=== PATIENT | male | born 1980 | race Caucasian/White ===

== ENCOUNTER 2021-02-19 17:01 | Emergency (ER) | payer MEDICAID, SELFPAY ==
--- NOTE | 2021-02-19 | ECG_ITS ---
Test Reason : CHEST PAIN Blood Pressure : / mmHG Vent. Rate : 106 BPM Atrial Rate : 106 BPM P-R Int : 208 ms QRS Dur : 086 ms QT Int : 320 ms P-R-T Axes : 039 018 024 degrees QTc Int : 425 ms Sinus tachycardia Septal infarct (cited on or before 16-NOV-2019) Mild ND prolongation Abnormal ECG When compared with ECG of 16-NOV-2019 12:29, Vent. rate has increased BY 42 BPM Referred By: Generic ED Physician Electronically Signed By:TRISH ZAMORA
--- NOTE | ~2021-02-19 | XR_ITS ---
EXAMINATION: XR CHEST CLINICAL INFORMATION: Chest pain. COMPARISON: Chest radiographs dated 11/16/2019. TECHNIQUE: Frontal view of the chest was obtained. FINDINGS: Bilateral patchy opacities are seen predominantly in the mid and lower lung way. The heart and mediastinal structures are unremarkable. XR/XR chest 1V IMPRESSION: Bilateral patchy opacities predominantly in the lower lung way bilaterally were not seen previously and suggest an infectious/inflammatory process.
--- NOTE | ~2021-02-19 | CT_ITS ---
EXAMINATION: CT ANGIOGRAM OF THE CHEST WITH AND WITHOUT CONTRAST (CT PULMONARY ANGIOGRAM FOR PE) CLINICAL INFORMATION: Reason for Exam Post COVID chest Pain elevated D-dimer COMPARISON: Chest radiograph 02/19/[address] abdomen pelvis 02/24/2014 TECHNIQUE: Prior to contrast administration, noncontrast localization images were obtained. Subsequently, multidetector volumetric imaging was performed from the thoracic inlet to below the diaphragms following the administration of 71 mL Omnipaque 350 intravenous contrast. No contrast reaction reported Sagittal, coronal, and MIP oblique sagittal reformatted images were obtained on the CT workstation, uploaded to PACS, and reviewed. This CT examination was performed using dose optimization techniques as appropriate, variously including the following: *Automated exposure control *Adjustment of mA and/or kV according to patient size (this includes techniques or standardized protocols for targeted exams where dose is matched to indication/reason for exam; i.e. extremities or head) *Use of iterative reconstruction technique Total exam dose-length product 568 mGy-cm FINDINGS: QUALITY OF STUDY/CONTRAST BOLUS: Satisfactory. PULMONARY ARTERIES: No central or segmental pulmonary emboli. THORACIC AORTA: No aneurysm or dissection. Marked motion artifact is present. LUNG: Diffuse multifocal groundglass infiltrates are present with some areas of more linear scarring consistent with evolving Covid 19 pneumonia. PLEURA: No pleural effusion or pneumothorax. MEDIASTINUM: Normal heart size. No pericardial effusion. No hilar or mediastinal lymphadenopathy. No evidence of septal bowing or right heart strain. CHEST WALL/AXILLA: No axillary or internal mammary lymphadenopathy. OSSEOUS STRUCTURES: No acute or suspicious osseous abnormality. UPPER ABDOMEN: A small hiatal hernia is present. No reflux of contrast into the hepatic veins to suggest elevated right heart pressures. CT/CT angio chest PE protocol IMPRESSION: 1. No evidence of pulmonary emboli. 2. Multifocal patchy groundglass changes with some more linear areas consistent with evolving Covid 19 infection VTE: negative
[2021-02-19 17:41] VITALS: BP 131/94; PULSE 108; RESP 19; TEMP 37.2; O2SAT 94; BMI 33.5
[2021-02-19 19:47] LABS: MANUAL DIFF FLAG NO
[2021-02-19 19:49] LABS: Basophils Percent Auto 0.2 % (0-2); Eosinophils Absolute Auto 0.2 X10*3/uL (0.0-0.4); Eosinophils Percent Auto 2.3 % (0-4); Hematocrit 41.1 % (42-52); Hemoglobin 13.2 g/dl (14.0-18.0); Imm Gran Abs Auto 0.07 X10*3/uL (0.00-0.03); Imm Gran Pct Auto 0.7 % (0.0-0.4); Lymphocytes Absolute Auto 2.1 X10*3/uL (1.2-4.9); Mean Corpuscular HGB Conc 32.1 g/dl (31.0-36.0); Mean Corpuscular Hemoglobin 28.9 pg (27.0-33.0); Mean Corpuscular Volume 89.9 fL (80-98); Mean Platelet Volume 9.4 fL (9.4-12.4); Monocytes Absolute Auto 0.7 X10*3/uL (0.1-1.2); Monocytes Percent Auto 7.2 % (2-11); Neutrophils Percent Auto 68.6 % (45-73); Platelet Count 139 X10*3/uL (160-400); Red Blood Count 4.57 X10*6/uL (4.60-5.80); Red Cell Distribution Width 12.6 % (11.0-16.0); White Blood Count 10.2 X10*3/uL (4.8-10.8)
[2021-02-19 20:04] VITALS: BP 124/77; PULSE 91; RESP 17; O2SAT 96
[2021-02-19 20:06] LABS: Anion Gap 11 (12-20); Blood Urea Nitrogen 7 mg/dL (9-16); Calcium 9.1 mg/dL (8.4-10.2); Carbon Dioxide 29 mmol/L (22-29); Chloride 102 mmol/L (96-108); Estimated Glomerular Filt Rate > 60; Glucose Random 91 mg/dL (60-115); Potassium 4.4 mmol/L (3.3-5.1); Sodium 138 mmol/L (135-145)
[2021-02-19 20:11] LABS: Troponin-I High Sensitivity < 3.5 ng/L (<3.5-35.0)
[2021-02-19 20:31] VITALS: PULSE 102
--- NOTE | 2021-02-19 20:32 | PC.NURSE ---
pt resting queitly, eating fritos, candy, rice crispies, and juice, unlabored resp. nsr on monitor. atenolol was held aprox 02/04 and pulse has been high ever since. pains are vague and varied. chest, head, BLE pains and chapped lips. ls clear all way
--- NOTE | 2021-02-19 20:50 | ED_ITS ---
HPI - Chest Pain General Chief Complaint: Chest Pain Stated Complaint: cp Time Seen by Provider: 02/19/21 20:50 Source: patient Mode of arrival: ambulatory Limitations: no limitations History of Present Illness HPI narrative: Patient with history of recent COVID infection in January with history of anxiety and hypertension complaining of palpitation off and on with chest pain since discharge on 02/09 patient was on atenolol 25 mg but was discontinued because of bradycardia patient's feel very anxious chest pain is way mild discomfort also complaining of headache and poor sleep headache been there for 3 days is worried about a blood clot in the brain because of COVID no nausea no vomiting no significant shortness of breath no cough pain chest increases on deep inspiration complaint: chest pain Related Data Allergies Allergy/AdvReac Type Severity Reaction Status Date / Time No Known Allergies Allergy Verified 02/19/21 17:41 Review of Systems Review of Systems: Constitutional : No Weight loss, No Fever, No Chills ENT/Mouth : No sore throat, No Rhinorrhea Eyes: No Eye Pain, No Swelling Cardiovascular : +Chest Pain, no palpitations Respiratory : No Cough, No Sputum, no shortness of breath Gastrointestinal : no Nausea, No Vomiting, No Diarrhea, No abdominal Pain, no black stools Genitourinary : No Dysuria, No Urinary Frequency Musculoskeletal : No joint pain, No Myalgias, No Joint Swelling Skin : No Skin Lesions, No rash Neuro : No Weakness, No Numbness, No Dizziness, ++Headache Psych : No Anxiety/Panic, No Depression Heme/Lymph: No Bruising, No Lymphadenopathy Endocrine : No Polyuria, No Polydipsia All other systems reviewed and are negative PMFSH Past Medical History Medical History Anxiety Hypertension Social History Social History Alcohol intake: former Smoking Status: Former smoker Use of substances other than those prescribed or required for medical reasons: Yes Substance Use Type: Opiates Any prior treatment program specific to substance use: Yes Advance Directives: No Advance Directives Information Provided: Yes Physical Exam Vital Signs: Vital Signs: Last Vital Signs Temp 99.0 F 02/19/21 17:41 Pulse 94 02/19/21 22:56 Resp 18 02/19/21 22:56 BP 114/57 L 02/19/21 22:56 Pulse Ox 95 02/19/21 22:56 Body Mass Index 33.5 Appearance: Alert. Oriented X3. No acute distress. Anxious Eyes: PERRLA, No Nystagmus ENT: Pharynx normal. Oral Mucosa moist Neck: Normal inspection. Neck supple. CVS: Normal heart rate and rhythm. Pulses normal. Respiratory: No respiratory distress. Equal air entry bilateral, no wheezin g/rales/rhonchi Abdomen: Soft and nontender. Bowel sounds are present, no mass palpable, no CVA tenderness Skin: Skin warm and dry. Normal skin color. Normal skin turgor. Extremities: No lower extremity edema. No calf tenderness Neuro: Oriented X 3. No motor deficit. No sensory deficit.No cerebellar signs , cranial nerves II-XII intact MDM - Chest Pain MDM Narrative Medical decision making narrative: Patient has multiple symptoms tension headache shortness of breath chest pain CTA chest was done was negative for PE high sensitive troponin also negative no acute changes patient more anxious and worried about COVID side effects. Patient advised to continue his atenolol for the heart rate above 60 and follow with his PCP Medical Records Data Attestation: I reviewed the patient's medical records. Lab Data Attestation: I reviewed the patient's lab results. Result diagrams: 02/19/21 19:37 02/19/21 19:37 Labs: Lab Results 02/19/21 02/19/21 02/19/21 Range/Units 19:37 19:37 19:37 WBC 10.2 (4.8-10.8) X10*3/uL RBC 4.57 L (4.60-5.80) X10*6/uL Hgb 13.2 L (14.0-18.0) g/dl Hct 41.1 L (42-52) % MCV 89.9 (80-98) fL MCH 28.9 (27.0-33.0) pg MCHC 32.1 (31.0-36.0) g/dl RDW 12.6 (11.0-16.0) % Plt Count 139 L (160-400) X10*3/uL MPV 9.4 (9.4-12.4) fL Immature Gran % (Auto) 0.7 H (0.0-0.4) % Neut % (Auto) 68.6 (45-73) % Lymph % (Auto) 21.0 (20-40) % [place]quois % (Auto) 7.2 (2-11) % Eos % (Auto) 2.3 (0-4) % Baso % (Auto) 0.2 (0-2) % Lymph # (Auto) 2.1 (1.2-4.9) X10*3/uL [place] # (Auto) 0.7 (0.1-1.2) X10*3/uL Eos # (Auto) 0.2 (0.0-0.4) X10*3/uL Baso # (Auto) 0.0 (0.0-0.2) X10*3/uL Abs Immat Gran (auto) 0.07 H (0.00-0.03) X10*3/uL Absolute Neuts (auto) 7.0 (2.0-8.3) X10*3/uL Absolute Nucleated RBC 0.000 (0.0-0.012) X10*3/uL Nucleated RBC % (auto) 0.0 (0.0-0.2) /100WBC D-Dimer 392 NG/ML Hold Blue Top SEE NOTE Sodium 138 (135-145) mmol/L Potassium 4.4 (3.3-5.1) mmol/L Chloride 102 (96-108) mmol/L Carbon Dioxide 29 (22-29) mmol/L Anion Gap 11 L (12-20) BUN 7 L (9-16) mg/dL Creatinine 0.70 (0.5-1.4) mg/dL Estim Creat Clear Calc 176.0 Estimated GFR > 60 Random Glucose 91 (60-115) mg/dL Calcium 9.1 (8.4-10.2) mg/dL Troponin I High Sens (<3.5-35.0) ng/L 02/19/21 Range/Units 19:37 WBC (4.8-10.8) X10*3/uL RBC (4.60-5.80) X10*6/uL Hgb (14.0-18.0) g/dl Hct (42-52) % MCV (80-98) fL MCH (27.0-33.0) pg MCHC (31.0-36.0) g/dl RDW (11.0-16.0) % Plt Count (160-400) X10*3/uL MPV (9.4-12.4) fL Immature Gran % (Auto) (0.0-0.4) % Neut % (Auto) (45-73) % Lymph % (Auto) (20-40) % [place]quois % (Auto) (2-11) % Eos % (Auto) (0-4) % Baso % (Auto) (0-2) % Lymph # (Auto) (1.2-4.9) X10*3/uL [place] # (Auto) (0.1-1.2) X10*3/uL Eos # (Auto) (0.0-0.4) X10*3/uL Baso # (Auto) (0.0-0.2) X10*3/uL Abs Immat Gran (auto) (0.00-0.03) X10*3/uL Absolute Neuts (auto) (2.0-8.3) X10*3/uL Absolute Nucleated RBC (0.0-0.012) X10*3/uL Nucleated RBC % (auto) (0.0-0.2) /100WBC D-Dimer NG/ML Hold Blue Top Sodium (135-145) mmol/L Potassium (3.3-5.1) mmol/L Chloride (96-108) mmol/L Carbon Dioxide (22-29) mmol/L Anion Gap (12-20) BUN (9-16) mg/dL Creatinine (0.5-1.4) mg/dL Estim Creat Clear Calc Estimated GFR Random Glucose (60-115) mg/dL Calcium (8.4-10.2) mg/dL Troponin I High Sens < 3.5 (<3.5-35.0) ng/L Imaging Data CT scan - chest: Attestation: I personally reviewed and interpreted this imaging study as follows: Radiologist's impression: CT/CT angio chest PE protocol IMPRESSION: 1. No evidence of pulmonary emboli. 2. Multifocal patchy groundglass changes with some more linear areas consistent with evolving Covid 19 infection ECG Data ECG #1: Attestation: I personally reviewed and interpreted this ECG as follows: Interpretation: Sinus tachycardia heart rate 106 beats per minute poor progression of R-wave no acute ST T wave changes normal axis no acute ischemia Discharge Plan Discharge Clinical Impression: Atypical chest pain, COVID-19 Patient Disposition: Home, Self-Care Instructions: Chest Pain (ED), COVID-19 (Coronavirus Disease 2019) (ED) Additional Instructions: Drink plenty of fluid Continue your atenolol 25 mg daily Follow up with PCP Stand Alone Forms: Work/School Release
[2021-02-19 21:02] LABS: D Dimer 392 NG/ML
[2021-02-19] MEDS: Ketorolac Tromethamine 60 MG/2 ML VIAL IM (21:18)
[2021-02-19] MEDS: iohexoL 350 MG/ML 100 ML INFUS..BTL IV (22:04)
[2021-02-19 22:56] VITALS: BP 114/57; PULSE 94; RESP 18; O2SAT 95
--- NOTE | 2021-02-19 22:57 | PC.NURSE ---
reports improvement in headache. awaits md reeval resting comfortably. no SOB> skin pwd. nsr on monitor
== END 2021-02-19 23:58 | disposition home or self-care (01) ==
PROVIDERS: Emergency Provider Internal Medicine; PCP Internal Medicine
DX: U07.1 COVID-19 (principal); R07.89 Other chest pain; F11.10 Opioid abuse, uncomplicated; Z86.16 Personal history of COVID-19; Z87.891 Personal history of nicotine dependence
CPT/HCPCS: 36415; 71045; 71275; 80048; 84484; 85025; 85379; 93005; 96372; 99285; J1885; Q9967

== ENCOUNTER 2021-02-23 16:00 | Outpatient (REF) | payer MEDICAID, SELFPAY ==
--- NOTE | ~2021-02-23 | XR_ITS ---
EXAMINATION: XR CHEST CLINICAL INFORMATION: Pneumonia. Covid 19. COMPARISON: Several priors. Most recent of 02/19/21. CT scan of 02/19/21. TECHNIQUE: 2 views of the chest were obtained. FINDINGS: Coarse interstitial changes are evident in the mid and lower lung zones similar to the chest x-ray of 02/19/[address] scan of 02/19/21. The CT scan also showed significant peripheral groundglass opacity typical of Covid pneumonia. No new abnormality is demonstrated. The pleural spaces are clear. The heart and mediastinal structures are normal. XR/XR chest 2V IMPRESSION: Radiographic changes consistent with Covid pneumonia. No significant interval change.
== END 2021-02-23 16:01 | disposition home or self-care (01) ==
LOC: HO.XRAY 16:00
PROVIDERS: PCP Internal Medicine; Visit Provider Internal Medicine
DX: J18.8 Other pneumonia, unspecified organism (principal); U07.1 COVID-19
CPT/HCPCS: 71046

== ENCOUNTER 2022-08-07 13:42 | Outpatient (REF) | payer MEDICAID, SELFPAY ==
[2022-08-07 15:32] LABS: Syphilis Screen Nonreactive (Nonreactive)
[2022-08-08 08:38] LABS: HIV AB/AG Nonreactive (Nonreactive); HIV Num 1 0.05 S/CO (0.00-0.99)
== END 2022-08-07 13:43 | disposition home or self-care (01) ==
LOC: HO.LAB 13:42
PROVIDERS: PCP Internal Medicine; Visit Provider Psychiatry & Neurology Neurology
DX: Z11.4 Encounter for screening for human immunodeficiency virus [HIV] (principal); G93.9 Disorder of brain, unspecified; G43.009 Migraine without aura, not intractable, without status migrainosus
CPT/HCPCS: 36415; 86780; 87389

== ENCOUNTER 2022-10-15 10:15 | Emergency (ER) | payer MEDICAID, SELFPAY ==
--- NOTE | ~2022-10-15 | XR_ITS ---
EXAMINATION: XR CHEST CLINICAL INFORMATION: Cough COMPARISON: Previous chest x-ray and chest CT February 2021 TECHNIQUE: 2 views of the chest were obtained. FINDINGS: The cardiac and mediastinal contours are normal. There are increased markings in the right upper lobe suggestive of right upper lobe pneumonia. The lungs are otherwise clear. There is no pleural effusion or pneumothorax. Bony structures are unremarkable. XR/XR chest 2V IMPRESSION: Right upper lobe pneumonia.
[2022-10-15 11:01] VITALS: BP 147/80; PULSE 62; RESP 18; TEMP 37.1; O2SAT 97; BMI 32.8
[2022-10-15 11:21] LABS: Strep A Nucleic Acid Positive (Negative)
--- NOTE | 2022-10-15 11:25 | ED_ITS ---
HPI - URI/Sore Throat General Chief Complaint: Upper Respiratory Symptoms Stated Complaint: Strep throat/Difficulty breathing Time Seen by Provider: 10/15/22 11:23 Source: patient Mode of arrival: ambulatory Limitations: no limitations History of Present Illness HPI Narrative: 42-year-old male presents to the ER for evaluation ongoing dry cough, sore throat and headaches for the last 11 days. He was seen at [facility] [place] [facility], where he tested positive for strep throat. He was prescribed penicillin and has been compliant. He states the antibiotics took his pain away for 1 day but otherwise has been persistent sore throat. He has an ongoing dry cough and would like a chest x-ray today. He denies any fevers, difficulty breathing, chest pain. He states he has diffuse body aches and feels unwell. He has been eating and drinking normally but hurts to swallow. MD elicited complaint: cough and sore throat Onset (ago): day(s) (10) Consistency: constant Severity: moderate Able to tolerate fluids by mouth: Yes Exacerbating factors: swallowing Relieving factors: lozenge Associated symptoms: myalgias, headache, nasal congestion, sore throat and cough Treatments prior to arrival: none Related Data Previous Rx's Medication Instructions Recorded amoxicillin 875 mg-potassium 1 tab PO Q12H #14 tabs 10/15/22 clavulanate 125 mg tablet benzonatate 200 mg capsule 200 mg PO TID PRN cough #30 caps 10/15/22 prednisone 20 mg tablet 40 mg PO DAILY #10 tabs 10/15/22 Allergies Allergy/AdvReac Type Severity Reaction Status Date / Time No Known Allergies Allergy Verified 02/19/21 17:41 Review of Systems Review of Systems: Constitutional: No Fever, No Chills ENT/Mouth: +sore throat, No Rhinorrhea, No Swallowing Difficulty Cardiovascular: No Chest Pain, No SOB Respiratory: + Cough, No Sputum, No Wheezing, No dyspnea Gastrointestinal: No Nausea, No Vomiting, No Diarrhea, No abdominal Pain Musculoskeletal: No joint pain, +Myalgias Skin: No Skin Lesions, No rash Neuro: + Weakness, No Numbness, No Dizziness, +Headache Psych: + Anxiety/Panic Heme/Lymph: No Bruising, No Lymphadenopathy PMFSH Past Medical History Medical History Anxiety Hypertension Social History Social History Alcohol intake: former Substance Use Type: Opiates Advance Directives: No Advance Directives Information Provided: No Physical Exam Vital Signs: Vital Signs: Last Vital Signs Temp 98.8 F 10/15/22 11:01 Pulse 62 10/15/22 11:01 Resp 18 10/15/22 11:01 BP 147/80 H 10/15/22 11:01 Pulse Ox 97 10/15/22 11:01 O2 Del Method 10/15/22 11:01 BMI result Body Mass Index 32.8 Appearance: Alert. Oriented X3. No acute distress. Eyes: Pupils equal, round and reactive to light. ENT: Pharynx with moist mucous membranes. Posterior pharyngeal erythema with tonsillar swelling without exudate. Uvula midline. Normal voice, handling secretions normally. Neck: Normal inspection. Neck supple. CVS: Normal heart rate and rhythm. Pulses normal. Respiratory: No respiratory distress. Breath sounds normal. Barking type cough. Skin: Skin warm and dry. Normal skin color. Normal skin turgor. No rashes. Extremities: No lower extremity edema. Neuro: Oriented X 3. Grossly normal, nonfocal Course Course Course Narrative: 42-year-old male with recently diagnosed strep throat presents to the ER for ongoing sore throat and dry cough after being on antibiotics for the last 3 day s. He thinks the antibiotics are not working. On exam he has no evidence of peritonsillar abscess. He is saturating well on room air and has clear lungs throughout. Chest x-ray reviewed, no focal infiltrate appreciated. He is negative for COVID, flu, RSV. Will change his antibiotic to Augmentin, start prednisone for possible bronchitis as well as antitussive. Patient given other symptomatic management for strep throat, sore throat including salt water gargles and [id number] remedies. Encourage follow-up with his primary care doctor. Stable for discharge home. Medical Decision Making Lab Data Labs: Lab Results 10/15/22 10/15/22 Range/Units 11:12 11:12 Influenza Type A (PCR) NEGATIVE (Negative) Influenza Type B (PCR) NEGATIVE (Negative) RSV RNA Qual (PCR) NEGATIVE (Negative) SARS-CoV-2 RNA (RT-PCR) NEGATIVE (Negative) S. pyogenes GrpA MARGO Positive A (Negative) Discharge Plan Discharge Clinical Impression: Strep throat Patient Disposition: Home, Self-Care Instructions: Strep Throat (ED) Additional Instructions: Chest x-ray is clear, no evidence of pneumonia. You are negative for Flu, COVID and RSV Stop taking the previously prescribed pencillin and start the new prescription as directed, complete the entire course and do not miss any doses Take the prescribed prednisone as directed and the cough medication as needed. Rest and drink plenty of fluids Use warm salt water gargles several times per day Recommend over the counter Cepacol and Chloraseptic spray as needed for sore throat Take motrin and tylenol as needed for pain If you develop new or worsening symptoms call 911 or come back to the ER for further evaluation. Prescriptions: New amoxicillin-pot clavulanate 875-125 mg tablet 1 tab PO Q12H Qty: 14 0RF prednisone 20 mg tablet 40 mg PO DAILY Qty: 10 0RF benzonatate 200 mg capsule 200 mg PO TID PRN (Reason: cough) Qty: 30 0RF Referrals: Diann Ramirez MD [Primary Care Provider] - Stand Alone Forms: Work/School Release Interventions: ED Discharge Assessment Last Done: 10/15/22 12:13 Discharge Date/Time: 10/15/22 12:14
--- OUTSIDE RECORDS SUMMARY | 2022-10-15 11:30 | XMS_ITS | Continuity of Care Document ---
:1980 Author Organization [facility] Address [address] [place] [address]- Care Team Providers Name Role Phone James LALA, Diann Primary Care Physician [id number] Date(s): 01/06/20 - 01/13/20 [facility] [address] [place] [address]- [facility] Attending Physician: Sierra Ambrocio MD Referring Physician: Diann Ramirez MD Allergies, Adverse Reactions, Alerts Substance Reaction Severity Status NKA Active Medications Amoxicillin By Mouth, Maintenance, DENTAL INFECTION, 03/21/19 18:36:55 EDT Start Date: 03/21/19 Status: OrderedAtivan 1 mg oral tablet 1 tablet = 1 mg, By Mouth, 3 times a day, PRN for anxiety, # 12 tablet, 0 Refills, Maintenance, Tablet Start Date: 10/09/11 Status: OrderedAtivan 1 mg oral tablet 1 tablet = 1 mg, By Mouth, 3 times a day, PRN Pain , Moderate, # 3 tablet, 0 Refills, Maintenance Start Date: 07/15/12 Stop Date: 07/16/12 Status: OrderedGolytely - oral powder for reconstitution 2 L, By Mouth, 2 times a day, # 4 L, 0 Refills, Maintenance, 06/02/19 16:41:22 EDT Start Date: 06/02/19 Status: Orderedlidocaine 4% mucous membrane solution See Instructions, apply small amount to ulcer three times daily, # 1 each, 0 Refills, Maintenance, 01/06/20 18:10:00 EDT, [id number], apply small amount to ulcer three times daily, 180, cm, 01/06/20 17:50:00 EDT, Height, 108.5, kg, 03... Start Date: 01/06/20 Status: OrderedSuboxone 8 mg-2 mg sublingual film 2.5, Sublingual, Daily, 0 Refills, Maintenance Start Date: 06/17/12 Status: Ordered Vital Signs Most recent to oldest [Reference Range]: 1 Height 180.00 cm (01/06/20 5:50 PM) Weight 108.5 kg (01/06/20 5:50 PM) Oxygen Saturation [94-100 %] 100 % (01/06/20 5:50 PM) Pulse Rate [55-90 bpm] 59 bpm (01/06/20 5:50 PM) Body Mass Index [18.5-24.99] 33.49 *>HHI* (01/06/20 5:50 PM) Blood Pressure [90-138/55-84 mm Hg] 115/75 mm Hg (01/06/20 5:50 PM) Respiratory Rate [16-30 br/min] 17 br/min (01/06/20 5:50 PM) Temperature [96.8-100.4 DegF] 98.3 DegF (01/06/20 5:50 PM) Mode of Delivery (Oxygen) Room air (01/06/20 5:50 PM) Blood pressure sites Arm, right (01/06/20 5:50 PM) Temperature Route Oral (01/06/20 5:50 PM) Dry Weight 108.5 kg (01/06/20 5:50 PM) Weight Obtained Via Standing scale (01/06/20 5:50 PM) Dry Weight Obtained Via Standing scale (01/06/20 5:50 PM) Social History Social History Type Response Smoking Status Former smoker entered on: 03/14/15 Sex
--- OUTSIDE RECORDS SUMMARY | 2022-10-15 11:30 | XMS_ITS | Continuity of Care Document ---
:1980 Author Organization [facility] Address [address] [place] [address]- Care Team Providers Name Role Phone Diann Ramirez MD Primary Care Physician Encounter [facility] Date(s): 03/06/21 - 03/06/[address] [address]- Discharge Disposition: A-D/C Home Attending Physician: Neto Capone MD Admitting Physician: Neto Capone MD Referring Physician: Not on Staff, Referring MD Allergies, Adverse Reactions, Alerts Substance Reaction Severity Status NKA Active Medications Amoxicillin By Mouth, Maintenance, DENTAL INFECTION, 03/21/19 18:36:55 EDT Start Date: 03/21/19 Status: OrderedAtivan 1 mg oral tablet 1 tablet = 1 mg, By Mouth, 3 times a day, PRN Pain , Moderate, # 3 tablet, 0 Refills, Maintenance Start Date: 07/15/12 Stop Date: 07/16/12 Status: OrderedAtivan 1 mg oral tablet 1 tablet = 1 mg, By Mouth, 3 times a day, PRN for anxiety, # 12 tablet, 0 Refills, Maintenance, Tablet Start Date: 10/09/11 Status: OrderedGolytely - oral powder for reconstitution 2 L, By Mouth, 2 times a day, # 4 L, 0 Refills, Maintenance, 06/02/19 16:41:22 EDT Start Date: 06/02/19 Status: Orderedlidocaine 4% mucous membrane solution See Instructions, apply small amount to ulcer three times daily, # 1 each, 0 Refills, Maintenance, 01/06/20 18:10:00 EDT, [facility] #[id number], apply small amount to ulcer three times daily, 180, cm, 01/06/20 17:50:00 EDT, Height, 108.5, kg, 03... Start Date: 01/06/20 Status: OrderedSuboxone 8 mg-2 mg sublingual film 2.5, Sublingual, Daily, 0 Refills, Maintenance Start Date: 06/17/12 Status: Ordered Results Radiology Reports Exam Date Time Procedure Performing Provider Status 03/06/21 11:09 AM Cervical Spine 3 Views or Less Deja Orlando; Shon (Verified) Notes:(Cervical Spine 3 Views or Less) Reason For Exam: PainRESULT: Cervical Spine 3 Views or Less Examination: Cervical spine series performed on 03/06/2021. History: Hx of Present Illness: Pt presents with complaint of left neck pain which began after a fall two weeks ago. Pt states the pain has worsened and now radiates into his left shoulder. He also reports increased swelling. No tingling or numbness. CSM intact.; Reason: Pain; Clinical Question(s): Other: Findings: Frontal, lateral, and odontoid views of the cervical spine are submitted. Evaluate extends from the occiput through the C7 vertebral level. The C7-T1 articulation is not well-visualized. No fractures or dislocations are demonstrated. There is straightening of the cervical lordosis, which could be secondary to muscle spasm. The atlantoaxial articulation is preserved. The prevertebral soft tissues are within normal limits. IMPRESSION: There is no acute osseous abnormality. WSN: [id number] Ordering Physician: Neto Capone Dictated By: Ruby Kasper MD Dictated Date/Time: 03/06/21 11:33 a Reviewed By: Ruby Kasper MD Signed By: Ruby Kasper MD Signed Date/Time: 03/06/21 11:33 am Transcribed By: MIMI Transcribed Date/Time: 03/06/21 11:32 am Vital Signs Most recent to oldest [Reference Range]: 1 2 Height 180 cm 180 cm (03/06/21 1:16 PM) (03/06/21 10:48 AM) Weight 110 kg 110 kg (03/06/21 1:16 PM) (03/06/21 10:48 AM) Oxygen Saturation [94-100 %] 98 % 99 % (03/06/21 1:16 PM) (03/06/21 10:48 AM) Pulse Rate [55-90 bpm] 53 bpm 52 bpm *L* *L* (03/06/21 1:16 PM) (03/06/21 10:48 AM) Body Mass Index [18.5-24.99] 33.95 *>HHI* (03/06/21 1:16 PM) Blood Pressure [90-138/55-84 mm Hg] 108/80 mm Hg 124/ 57 mm Hg (03/06/21 1:16 PM) (03/06/21 10:48 AM) Respiratory Rate [16-30 br/min] 18 br/min 20 br/mi n (03/06/21 1:16 PM) (03/06/21 10:48 AM) Temperature [96.8-100.4 DegF] 97.5 DegF 97.9 DegF (03/06/21 1:16 PM) (03/06/21 10:48 AM) Mode of Delivery (Oxygen) Room air Room air (03/06/21 1:16 PM) (03/06/21 10:48 AM) Blood pressure sites Arm, left Arm, left (03/06/21 1:16 PM) (03/06/21 10:48 AM) Temperature Route Oral Oral (03/06/21 1:16 PM) (03/06/21 10:48 AM) Dry Weight 110 kg 110 kg (03/06/21 1:16 PM) (03/06/21 10:48 AM) Weight Obtained Via Standing scale (03/06/21 10:48 AM) Social History Social History Type Response Smoking Status Former smoker entered on: 03/14/15 Sex
--- OUTSIDE RECORDS SUMMARY | 2022-10-15 11:30 | XMS_ITS | Continuity of Care Document ---
:1980 Author Organization [facility] Address [address] [place] [id number]- Care Team Providers Name Role Phone Diann Ramirez MD Primary Care Physician Encounter [facility] Date(s): 04/03/20 - 04/03/[address] [address]- [facility] Discharge Disposition: A-D/C Walkout Attending Physician: Not on Staff, Attending MD Admitting Physician: Not on Staff, Admitting MD Referring Physician: Not on Staff, Referring [...] each, 0 Refills, Maintenance, 01/06/20 18:10:00 EDT, [facility] #[id number], apply small amount to ulcer three times daily, 180, cm, 01/06/20 17:50:00 EDT, Height, 108.5, kg, 03... Start Date: 01/06/20 Status: OrderedSuboxone 8 mg-2 mg sublingual film 2.5, Sublingual, Daily, 0 Refills, Maintenance Start Date: 06/17/12 Status: Ordered Vital Signs Most recent to oldest [Reference Range]: 1 2 Oxygen Saturation [94-100 %] 100 % 98 % (04/03/20 10:15 PM) (04/03/20 5:51 PM) Pulse Rate [55-90 bpm] 61 bpm 74 bpm (04/03/20 10:15 PM) (04/03/20 5:51 PM) Blood Pressure [90-138/55-84 mm Hg] 128/78 mm Hg 148/ 88 mm Hg (04/03/20 10:15 PM) *H* (04/03/20 5:51 PM) Respiratory Rate [16-30 br/min] 18 br/min 20 br/mi n (04/03/20 10:15 PM) (04/03/20 5:51 PM) Temperature [96.8-100.4 DegF] 98.1 DegF 97.9 DegF (04/03/20 10:15 PM) (04/03/20 5:51 PM) Mode of Delivery (Oxygen) Room air Room air (04/03/20 10:15 PM) (04/03/20 5:51 PM) Blood pressure sites Arm, right Arm, left (04/03/20 10:15 PM) (04/03/20 5:51 PM) Temperature Route Oral Oral (04/03/20 10:15 PM) (04/03/20 5:51 PM) Social History Social History Type Response Smoking Status Former smoker entered on: 03/14/15 Sex
--- OUTSIDE RECORDS SUMMARY | 2022-10-15 11:30 | XMS_ITS | Continuity of Care Document ---
:1980 Author Organization [facility] Address [address] [place] [address]- Care Team Providers Name Role Phone Diann Ramirez MD Primary Care Physician Encounter [id number] Date(s): 07/27/22 - 07/27/[address] [address]- Discharge Disposition: A-D/C Walkout Attending Physician: Not on Staff, Attending MD Admitting Physician: Not on Staff, Admitting MD Referring Physician: Not on Staff, Referring MD Allergies, Adverse Reactions, Alerts No Known Allergies Medications Amoxicillin By Mouth, Maintenance, DENTAL INFECTION, [...] each, 0 Refills, Maintenance, 01/06/20 18:10:00 EDT, [facility][id number], apply small amount to ulcer three times daily, 180, cm, 01/06/20 17:50:00 EDT, Height, 108.5, kg, 03... Start Date: 3/19/20 Status: OrderedSuboxone 8 mg-2 mg sublingual film 2.5, Sublingual, Daily, 0 Refills, Maintenance Start Date: 06/17/12 Status: Ordered Problem List Condition Confirmation Course Effective Dates Status Health Stat us Informant Obese class I Confirmed Active Results Radiology Reports Exam Date Time Procedure Performing Provider Status 07/27/22 1:43 PM Chest 2 Views Frontal and Lat Gary Cortez; Shon (Verified) Notes:(Chest 2 Views Frontal and Lat) Reason For Exam: Chest Pain;Other:RESULT: Chest 2 Views Frontal and Lat PA and lateral chest dated July 27, 2022. Comparison films are from April 18, 2015. HISTORY: Chest pain. FINDINGS: The cardiac silhouette is within normal limits for size. Hilar and mediastinal structures are unremarkable. No airspace infiltrate or pleural effusion is identified. Visualized osseous structures are unremarkable. IMPRESSION: No evidence of acute pulmonary disease. Interval resolution of a right upper lobe infiltrate. Examination 39097. Thank you for allowing me to participate in the care of this patient. WSN: [id number] Ordering Physician: Jem Wright Dictated By: Erick Hankins MD Dictated Date/Time: 07/27/22 1:52 pm Reviewed By: Erick Hankins MD Signed By: Erick Hankins MD Signed Date/Time: 07/27/22 1:52 pm Transcribed By: MIMI Transcribed Date/Time: 07/27/22 1:49 pm Vital Signs Most recent to oldest 1 2 3 [Reference Range]: Height 181 cm 181 cm (07/27/22 1:45 PM) (07/27/22 1:15 PM) Weight 110 kg 110 kg (07/27/22 1:45 PM) (07/27/22 1:15 PM) Oxygen Saturation [94-100 98 % 98 % 100 % %] (07/27/22 5:46 PM) (07/27/22 3:42 PM) (07/27/22 1:1 5 PM) Pulse Rate [55-90 bpm] 70 bpm 71 bpm 55 bpm (07/27/22 5:46 PM) (07/27/22 3:42 PM) (07/27/22 1:1 5 PM) Body Mass Index [18.5-24.99 33.58 kg/m2 kg/m2] *>HHI* (07/27/22 1:15 PM) Blood Pressure 111/67 mm Hg 112/65 mm Hg 124/67 mm Hg [90-138/55-84 mm Hg] (07/27/22 5:46 PM) (07/27/22 3:42 PM) ( 2 1:15 PM) Respiratory Rate [16-30 18 br/min 18 br/min br/min] (07/27/22 5:46 PM) (07/27/22 1:15 PM) Temperature [96.8-100.4 98.6 DegF 98.6 DegF 98 DegF DegF] (07/27/22 5:46 PM) (07/27/22 3:42 PM) (07/27/22 1:1 5 PM) Mode of Delivery (Oxygen) Room air Room air Room a ir (07/27/22 5:46 PM) (07/27/22 3:42 PM) (07/27/22 1:1 5 PM) Blood pressure sites Arm, right Arm, left Arm, right (07/27/22 5:46 PM) (07/27/22 3:42 PM) (07/27/22 1:1 5 PM) Temperature Route Oral Oral Oral (07/27/22 5:46 PM) (07/27/22 3:42 PM) (07/27/22 1:1 5 PM) Dry Weight 110 kg 110 kg (07/27/22 1:45 PM) (07/27/22 1:15 PM) Weight Obtained Via Patient/family stated (07/27/22 1:15 PM) Dry Weight Obtained Via Patient/family stated (07/27/22 1:15 PM) Social History Social History Type Response Smoking Status Former smoker entered on: 03/14/15 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 Comparison films are from April 18, 2015. HISTORY: Chest pain. FINDINGS: The cardiac silhouette is within normal limits for size. Hilar and mediastinal structures are unremarkable. No airspace infiltrate or pleural effusion is identified. Visualized osseous structures are unremarkable. IMPRESSION: No evidence of acute pulmonary disease. Interval resolution of a right upper lobe infiltrate. Examination [address]137. Thank you for allowing me to participate in the care of this patient. WSN: [id number] Ordering Physician: Jem Wright Dictated By: Erick Hankins MD Dictated Date/Time: 07/27/22 1:52 pm Reviewed By: Erick Hankins MD Signed By: Erick Hankins MD Signed Date/Time: 07/27/22 1:52 pm Transcribed By: MIMI Transcribed Date/Time: 07/27/22 1:49 pm Patient Care team information PersonnelName: Diann Ramirez MD Address: Address: [address] [place] [id number]
--- OUTSIDE RECORDS SUMMARY | 2022-10-15 11:30 | XMS_ITS | Continuity of Care Document ---
:1980 Author Organization [facility] Address [address] [place] [address]- Care Team Providers Name Role Phone Diann Ramirez MD Primary Care Physician Encounter [facility] Date(s): 07/30/22 - 07/30/[address] [address]- Encounter Diagnosis Anxiety (Final) - 07/30/22 Discharge Disposition: A-D/C Home Attending Physician: Fatou Mcguire DO Admitting Physician: Fatou Mcguire DO Referring Physician: Not on Staff, Referring MD Allergies, Adverse Reactions, Alerts No Known Allergies Medications Amoxicillin By Mouth, Maintenance, DENTAL INFECTION, 03/21/19 18:36:55 EDT Start Date: 03/21/19 Status: OrderedAtenolol By Mouth, Daily, 0 Refills, Maintenance, 07/30/22 11:17:00 EDT, Partial fill upon patient request ifthe prescription is for a schedule II opioid drug. Start Date: 07/30/22 Status: OrderedAtivan 1 mg oral tablet 1 [...] 06/02/19 16:41:22 EDT Start Date: 06/02/19 Status: Orderedibuprofen 600 mg oral tablet 600 mg, 1, tablet, By Mouth, Every 8 hours, # 30 tablet, Refills 0, Tot. Refills 0, Acute 08/10/22 15:34:00 EDT, 07/30/22 15:33:00 EDT, Route to Pharmacy Electronically, [facility] #[id number], Partial fill upon patient request if the prescriptio... Start Date: 07/30/22 Stop Date: 08/10/22 Status: Orderedlidocaine 4% mucous membrane solution See Instructions, apply small amount to ulcer three times daily, # 1 each, 0 Refills, Maintenance, 01/06/20 18:10:00 EDT, [facility] #[id number], apply small amount to ulcer three times daily, 180, cm, 01/06/20 17:50:00 EDT, Height, 108.5, kg, 03... Start Date: 01/06/20 Status: OrderedSuboxone 8 mg-2 mg sublingual film 2.5, Sublingual, Daily, 0 Refills, Maintenance Start Date: 06/17/12 Status: OrderedTylenol 325 mg oral tablet 325 mg, 1, tablet, By Mouth, Every 4 hours, PRN, # 60 tablet, Refills 0, Tot. Refills 0, Acute 08/10/22 15:36:00 EDT, for fever, 07/30/22 15:35:00 EDT, Route to Pharmacy Electronically, [facility] #[id number], Partial fill upon patient request if... Start Date: 07/30/22 Stop Date: 08/10/22 Status: Ordered Problem List Condition Confirmation Course Effective Dates Status Health Stat us Informant Obese class I Confirmed Active Results Radiology Reports Exam Date Time Procedure Performing Provider Status 07/30/22 11:53 AM Chest 2 Views Frontal and Lat Enmanuel Gracia ; Shon (Verified) Notes:(Chest 2 Views Frontal and Lat) Reason For Exam: Chest Pain;Other:RESULT: Chest 2 Views Frontal and Lat Examination: Chest performed on 07/30/2022. History: Anxiety. Chest pressure. Findings: Frontal and lateral views of the chest are compared to a prior study dated 07/27/2022. The cardiac and mediastinal silhouettes are within normal limits. The lungs are clear. The osseous and soft tissue structures are unremarkable. Impression: There is no acute cardiopulmonary disease. WSN: [id number] Ordering Physician: Franco Solano MD Dictated By: Ruby Kasper MD Dictated Date/Time: 07/30/22 12:00 p Reviewed By: Ruby Kasper MD Signed By: Ruby Kasper MD Signed Date/Time: 07/30/22 12:00 pm Transcribed By: MIMI Transcribed Date/Time: 07/30/22 12:00 pm Vital Signs Most recent to oldest 1 2 3 [Reference Range]: Height 180 cm 180 cm 180 cm (07/30/22:32 PM) (07/30/22 11:19 AM) (07/30/22 11:10 AM) Weight 110 kg 110 kg 110 kg (07/30/22:32 PM) (07/30/22: AM) (07/30/22 11:10 AM) Oxygen Saturation [94-100 96 % 98 % 97 % %] (07/30/22:32 PM) (07/30/22: AM) (07/30/22 11: AM) Pulse Rate [55-90 bpm] 62 bpm 1 69 bpm 80 bpm (07/30/22:32 PM) (07/30/22 11: AM) (07/30/22 11:08 AM) Body Mass Index [18.5-24.99 33.95 kg/m2 33.95 kg/m2 kg/m2] *>HHI* *>HHI* (07/30/22:32 PM) (07/30/22: AM) Blood Pressure 118/68 mm Hg 147/81 mm Hg [90-138/55-84 mm Hg] (07/30/22:32 PM) *H* (07/30/22: AM) Respiratory Rate [16-30 18 br/min 18 br/min br/min] (07/30/22:32 PM) (07/30/22: AM) Temperature [96.8-100.4 98.6 DegF 98.7 DegF DegF] (07/30/22:32 PM) (07/30/22: AM) Mode of Delivery (Oxygen) Room air Room air Room a ir (07/30/22:32 PM) (10/11/22 11:19 AM) (07/30/22 11:08 AM) Blood pressure sites Arm, left (07/30/22 11:19 AM) Temperature Route Oral Oral (07/30/22 2:32 PM) (07/30/22 11:19 AM) Dry Weight 110 kg 110 kg 110 kg (07/30/22 2:32 PM) (07/30/22 11:19 AM) (07/30/22 11:10 AM) 1Result Comment: Patient HR dropping to 39 intermittently. provider aware. 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 History: Anxiety. Chest pressure. Findings: Frontal and lateral views of the chest are compared to a prior study dated 07/27/2022. The cardiac and mediastinal silhouettes are within normal limits. The lungs are clear. The osseous and soft tissue structures are unremarkable. Impression: There is no acute cardiopulmonary disease. WSN: [id number] Ordering Physician: Franco Solano MD Dictated By: Ruby Kasper MD Dictated Date/Time: 07/30/22 12:00 p Reviewed By: Ruby Kasper MD Signed By: Ruby Kasper MD Signed Date/Time: 07/30/22 12:00 pm Transcribed By: MIMI Transcribed Date/Time: 07/30/22 12:00 pm Patient Care team information PersonnelName: Diann Ramirez MD Address: Address: [address] [place] [id number]
--- OUTSIDE RECORDS SUMMARY | 2022-10-15 11:30 | XMS_ITS | Continuity of Care Document ---
:1980 Author Organization [facility] Address [address] [place] [address]- Care Team Providers Name Role Phone Diann Ramirez MD Primary Care Physician [facility] [facility] [id number] Date(s): 01/06/20 - 01/16/20 [facility] [address] [place] [address]- [facility] Attending Physician: Dominique Chadwick Admitting Physician: Dominique Chadwick Referring Physician: AdmtrDominique Allergies, Adverse Reactions, Alerts Substance Reaction Severity [...] each, 0 Refills, Maintenance, 01/06/20 18:10:00 EDT, [facility] #[id number], apply small amount to ulcer three times daily, 180, cm, 01/06/20 17:50:00 EDT, Height, 108.5, kg, 03... Start Date: 01/06/20 Status: OrderedSuboxone 8 mg-2 mg sublingual film 2.5, Sublingual, Daily, 0 Refills, Maintenance Start Date: 06/17/12 Status: Ordered Social History Social History Type Response Smoking Status Former smoker entered on: 03/14/15 Sex
--- OUTSIDE RECORDS SUMMARY | 2022-10-15 11:31 | XMS_ITS | Continuity of Care Document ---
:1980 Author Organization [facility] Address [address], [address] Floor, [address] [place] [address]- Care Team Providers Name Role Phone James LALA, Diann Primary Care Physician Encounter [facility] Date(s): 09/07/22 - 10/07/22 [facility] [address] [place], [address], [address] [place] [address] Allergies, Adverse Reactions, Alerts No Known Allergies [...] each, 0 Refills, Maintenance, 01/06/20 18:10:00 EDT, [facility] #[id number], apply small amount to ulcer three times daily, 180, cm, 01/06/20 17:50:00 EDT, Height, 108.5, kg, 03... Start Date: 01/06/20 Status: OrderedSuboxone 8 mg-2 mg sublingual film 2.5, Sublingual, Daily, 0 Refills, Maintenance Start Date: 06/17/12 Status: Ordered Problem List Condition Confirmation Course Effective Dates Status Health Stat us Informant Obese class I Confirmed Active Social History Social History Type Response Smoking Status Former smoker entered on: 03/14/15 Sex Patient Care team information Care Team PersonnelName: James LALA , Diann Position: [facility] Outreach Member Role: PCP Address: Address: [address] [place] [address] [place] [address]- Care Team Related PersonsName: SHRAVAN CORBIN Address: home [address] [place] [address] [place] [address] Name: JEF CORBIN Address: home [address] [place] [address]
--- OUTSIDE RECORDS SUMMARY | 2022-10-15 11:31 | XMS_ITS | Referral Summary ---
:1980 Author Organization [facility] Physician Based Offices Care Team Providers Name Role Phone No, PCP Primary Care Physician Unavailable [id number] Date(s): 05/07/17 - 05/08/17 [facility] Physician Based Offices Attending Physician: DO Whitfield Scott T Referring Physician: Mayra, Tim
[2022-10-15 11:57] LABS: Influenza A PCR NEGATIVE (Negative); Influenza B PCR NEGATIVE (Negative); Resp Syncy Virus RNA Qual PCR NEGATIVE (Negative); SARS COV2 PCR INHOUSE NEGATIVE (Negative)
== END 2022-10-15 12:14 | disposition home or self-care (01) ==
PROVIDERS: Emergency Provider Student in an Organized Health Care Education/Training Program; PCP Internal Medicine
DX: J02.0 Streptococcal pharyngitis (principal); R06.02 Shortness of breath; R05.9 Cough, unspecified; R51.9 Headache, unspecified; M79.10 Myalgia, unspecified site; Z20.822 Contact with and (suspected) exposure to COVID-19
CPT/HCPCS: 0241U; 71046; 87651; 99282; 99283

== ENCOUNTER 2022-10-24 12:02 | Emergency (ER) | payer MEDICAID, SELFPAY ==
--- NOTE | ~2022-10-24 | XR_ITS ---
EXAMINATION: XR CHEST CLINICAL INFORMATION: Chest pain cough COMPARISON: Chest radiograph from 10/15/2022 TECHNIQUE: 2 views of the chest were obtained. FINDINGS: Previously identified parenchymal markings in the right upper lung field have improved with a residual amount noted. No pneumothorax. Trachea is midline. Cardiac mediastinal silhouette is not enlarged. No large pleural effusion. Osseous structures are intact. Soft tissues are unremarkable. XR/XR chest 2V IMPRESSION: Previously identified parenchymal markings in the right upper lung field have improved with a residual amount noted.
--- NOTE | ~2022-10-24 | XR_ITS ---
EXAMINATION: XR SOFT TISSUE NECK CLINICAL INDICATION: Neck swelling COMPARISON: None TECHNIQUE: 2 views of the soft tissue neck were obtained. FINDINGS: Soft tissue films of the neck demonstrate a normal larynx, pharynx and upper trachea. No soft tissue swelling or opaque foreign body is demonstrated. XR/XR soft tissue neck IMPRESSION: Unremarkable soft tissue neck exam.
--- NOTE | ~2022-10-24 | CT_ITS ---
EXAMINATION: CT SOFT TISSUE NECK WITHOUT CONTRAST CLINICAL INFORMATION: Anterior neck pain. COMPARISON: Neck radiograph from 10/24/2022. CT chest from 02/19/2021. TECHNIQUE: Multidetector helical imaging was performed in the axial plane without intravenous contrast. Multiple axial reformats and coronal/sagittal reconstructions were created the technologist workstation for review. This CT examination was performed using dose optimization techniques as appropriate, variously including the following: *Automated exposure control. *Adjustment of mA and/or kV according to patient size (this includes techniques or standardized protocols for targeted exams where dose is matched to indication/reason for exam; i.e. extremities or head). *Use of iterative reconstruction technique. DLP: 702 mGy-cm FINDINGS: No significant cutaneous thickening or subcutaneous inflammation. No discrete fluid collection within the deep tissues of the neck. The premaxillary, retromaxillary, pterygopalatine fossa, orbital apical, parapharyngeal, and prelaryngeal adipose tissue is maintained. Normal appearance of the parotid, submandibular, and thyroid glands. A right level IIa lymph node measures up to 1.6 cm. A left level III lymph node measures up to 1.5 cm. Otherwise, bilateral cervical chain lymph nodes are mildly increased in number but largely remain subcentimeter in size. No demonstrated focal lesion within the intrinsic tissues of the tongue or floor of mouth. Normal mucosal contours of the pharynx and larynx. Normal appearance of the hyoid bone, thyroid cartilage, or cartilaginous trachea. The airways remains widely patent. No radiopaque foreign bodies. The atlantooccipital and atlantoaxial articulations remain well aligned. Mild reversal the normal cervical lordosis. Otherwise, normal anatomic alignment. No evidence of acute fracture or subluxation of the cervical spine. The vertebral body heights are maintained. Moderate degenerative disc disease at C5-C6 and C6-C7. Mild degenerative disc disease at all additional cervical levels. There is no prevertebral soft tissue swelling. The visualized portion of the skull base is without significant abnormalities. The visualized paranasal sinuses are clear. The mastoid air cells and middle ear cavities are clear. The maxillary teeth are absent. CT Upper Chest: Redemonstrated multifocal patchy groundglass opacities throughout the visualized upper lungs. CT/CT soft tissue neck wo IV con IMPRESSION: 1. Nonspecific mildly prominent cervical chain lymph nodes. Right level IIa and left level III lymph nodes are mildly enlarged by CT size criteria; however, the etiology of this change remains nonspecific. 2. Otherwise, no demonstrated focal lesion or collection within the soft tissues of the neck. 3. Mild to moderate multilevel degenerative spinal arthropathy of the cervical spine. 4. Redemonstrated multifocal patchy groundglass opacities throughout the visualized upper lungs.
[2022-10-24 13:37] VITALS: BP 149/105; PULSE 68; RESP 18; TEMP 36.2; O2SAT 95; BMI 33.5
--- NOTE | 2022-10-24 13:37 | ED_ITS ---
HPI - General Adult General Source: patient <RON Chery - Last Filed: 10/24/22 19:10> Mode of arrival: ambulatory <RON Chery - Last Filed: 10/24/22 19:10> Limitations: no limitations <RON Chery - Last Filed: 10/24/22 19:10> History of Present Illness HPI narrative: 43-year-old male with a past medical history of anxiety and hypertension who is presenting to the ER with complaints of throat pain/anterior neck pain that has been present for the past few weeks worse today. Reports that he was seen here on 10/15/2022 and diagnosed with bacterial pharyngitis placed on antibiotics Augmentin for 7 days along with prednisone and cough medicine and he took that as prescribed and no symptomatic relief. He reports he feels like someone is choking him and his throat is closing. Although patient reports he is able to swallow liquids and food without any difficulty. Reports he was also seen at [facility] on [facility] where he also tested positive for strep as well. He reports this is making his chest feel tight. He does not feel like this is is regular anxiety attack. Reports that he also had some hives last night and this morning that he woke up to the are completely gone at this time. He denies any fevers, chills, ear pain, nasal congestion/rhinorrhea, sore throat, shortness of breath, dyspnea on exertion, orthopnea, palpitations, paresthesias, cough, sputum production, nausea/vomiting/diarrhea constipation, black or bloody stools, abdominal pain, rashes, recent falls or trauma, sick contacts or any other symptoms complaints or concerns at this time. <RON Chery - Last Filed: 10/24/22 19:10> complaint: Anterior throat pain <RON Chery Last Filed: 10/24/22 19:10> Onset (ago): week(s) <RON Chery Last Filed: 10/24/22 19:10> Related Data Home medications: Previous Rx's Medication Instructions Recorded amoxicillin 875 mg-potassium 1 tab PO Q12H #14 tabs 10/15/22 clavulanate 125 mg tablet benzonatate 200 mg capsule 200 mg PO TID PRN cough #30 caps 10/15/22 prednisone 20 mg tablet 40 mg PO DAILY #10 tabs 10/15/22 azithromycin 250 mg tablet See Rx Instructions PO .COMPLEX #6 10/24/22 tabs cefuroxime axetil 500 mg tablet 500 mg PO BID 7 days #14 tabs 10/24/22 prednisone 20 mg tablet 40 mg PO DAILY inflammation 5 days 10/24/22 #10 tabs <MENA Wolf - Last Filed: 10/30/22 20:48> Allergies/adverse reactions: Allergies Allergy/AdvReac Type Severity Reaction Status Date / Time No Known Allergies Allergy Verified 10/24/22 13:43 <MENA Wolf - Last Filed: 10/30/22 20:48> Review of Systems Review of Systems: Constitutional : No Weight loss, No Fever, No Chills, No Night Sweats, No Fatigue, No Malaise ENT/Mouth : No Hearing loss, No Ear Pain, No Nasal Congestion, No Sinus Pain, No Hoarseness, No sore throat, No Rhinorrhea, No Swallowing Difficulty Eyes: No Eye Pain, No Swelling, No Redness, No Foreign Body, No Discharge, No Vision Changes Cardiovascular : No Chest Pain, No SOB, No Dyspnea on Exertion, No Orthopnea, No Edema, No Palpitations Respiratory : No Cough, No Sputum, No Wheezing, No Smoke Exposure, No Dyspnea Gastrointestinal : No Nausea, No Vomiting, No Diarrhea, No Constipation, No abdominal Pain, No Hematochezia, No Melena Genitourinary : no irregular bleeding, No Dysuria, No Urinary Frequency, No Hematuria, No Urinary Incontinence, No Urgency, No Flank Pain, No Urinary Flow Changes, No Hesitancy Musculoskeletal : + anterior neck pain, No joint pain, No Myalgias, No Joint Swelling Skin : No Skin Lesions, No rash Neuro : No Weakness, No Numbness, No Paresthesias, No Loss of Consciousness, No Dizziness, No Headache Psych : No Anxiety/Panic, No Depression, No SI/HI/AH/VH, No Social Issues, Heme/Lymph: No Bruising, No Bleeding,No Lymphadenopathy Endocrine : No Polyuria, No Polydipsia, No Temperature Intolerance <RON Chery Last Filed: 10/24/22 19:10> Yes all other systems are reviewed and are negative <RON Chery - Last Filed: 10/24/22 19:10> [facility] Past Medical History Attestation statement: The following information was validated with the patient. <RON Chery - Last Filed: 10/24/22 19:10> Source: old records reviewed and nursing notes reviewed <RON Chery - Last Filed: 10/24/22 19:10> Medical History: Medical History Anxiety Hypertension <ALIYAH Wolf - Last Filed: 10/30/22 20:48> Social History Social History: Social History Alcohol intake: former Substance Use Type: Opiates Advance Directives: No Advance Directives Information Provided: No <ALIYAH Wolf - Last Filed: 10/30/22 20:48> Physical Exam ED Vital Signs: Vital Signs - 24 hr 10/24/22 13:37 Temperature 97.2 F Pulse Rate 68 Respiratory Rate 18 Blood Pressure 149/105 H Pulse Oximetry 95 Oxygen Delivery Method Room Air BMI result Body Mass Index 33.5 <ALIYAH Wolf - Last Filed: 10/30/22 20:48> Vital Signs - 24 hr 10/24/22 13:37 Temperature 97.2 F Pulse Rate 68 Respiratory Rate 18 Blood Pressure 149/105 H Pulse Oximetry 95 Oxygen Delivery Method Room Air BMI result Body Mass Index 33.5 vital signs have been reviewed as normal and appeared to be correct. Blood pressure 149/105. Heart rate normal. Respiration rate normal. Temperature normal. Oxygen saturation normal. <RON Chery - Last Filed: 10/24/22 19:10> Vital Signs - 24 hr 10/24/22 13:37 Temperature 97.2 F Pulse Rate 68 Respiratory Rate 18 Blood Pressure 149/105 H Pulse Oximetry 95 Oxygen Delivery Method Room Air BMI result Body Mass Index 33.5 <Margaret Moreira NP - Last Filed: 10/25/22 01:23> Appearance: Alert. Oriented X3. No acute distress. Head: Normal external exam. Normocephalic. Atraumatic. Eyes: PERRLA. EOMI. Conjunctiva and sclera normal. Eyelids normal. ENT: EAC normal. TM's Normal. Pharynx normal. Soft and hard palate within normal limits. Uvula midline. Moist mucous membranes. No lesions/ulcerations or masses noted on the tongue. Normal voice. No trismus noted. No drooling noted. No muffled voice noted. Neck: Normal inspection. Neck supple. FROM. No adenopathy. Thyroid Normal. No t lianna deviation noted. No crepitus is noted. No meningeal signs. No neck mass noted. No signs of trauma noted. CVS: Normal heart rate and rhythm. Heart sound normal. Pulses normal throughout. No murmurs/rales/gallops. Respiratory: No respiratory distress. Painless inspiration. Breath sounds no rmal. No wheezes/rales/rhonchi noted. Chest nontender. No crepitus is noted. No signs of trauma noted. No accessory muscle usage noted or decreased air movement noted. No signs of trauma. Abdomen: Soft and nontender. Bowel sounds normal in all 4 quadrants. No distention noted. No organomegaly noted. No visible injury noted. Back: Full range of motion noted. Nontender. Skin: Skin warm and dry. Normal skin color. Normal skin turgor. No rashes/lesions/lacerations noted. Extremities: Extremities exhibit normal range of motion and nontender. Neuro: Oriented X 3. No motor deficit. No sensory deficit. Reflexes normal. Normal steady gait. No focal neuro deficits noted. CN's II-XII intact bilaterally? Vascular: + radial pulses Normal cap refill. No cyanosis noted to upper extremity nails <RON Chery - Last Filed: 10/24/22 19:10> Course Course Course Narrative: 10/24/2022 [id number] RME: 43-year-old male with past medical history of hypertension and anxiety is here today for multiple complaints. Patient was seen here couple weeks ago for sore throat and was diagnosed with strep throat. Patient was put on antibiotics which she he reports that he finish. Today patient presents with multiple different complaints that include sore throat, patient feels like the throat is closing, however patient reports that he is able to swallow liquids and food. Patient denies any fever or chills. Patient denies any nausea or vomiting. De nies presyncope or syncope. Patient does report that his chest feels tight. He does not feel like this is an anxiety attack. Patient reports also that he had hives last night and this morning when he woke up which they are gone completely right now. Patient denies SOB with or without exertion. Denies syncope, presyncope, PND. Will order chest x-ray, labs that will include CBC, BMP, troponin and EKG <Carrol Gee, [employer] - Last Filed: 10/30/22 20:48> Reevaluation(s) Reevaluation #1: 43-year-old male with a past medical history of anxiety and hypertension who is presenting to the ER with complaints of throat pain/anterior neck pain that has been present for the past few weeks worse today. Reports that he was seen here on 10/15/2022 and diagnosed with bacterial pharyngitis placed on antibiotics Augmentin for 7 days along with prednisone and cough medicine and he took that as prescribed and no symptomatic relief. He reports he feels like someone is choking him and his throat is closing. Although patient reports he is able to swallow liquids and food without any difficulty. Reports he was also seen at [facility] on [facility] where he also tested positive for strep as well. He reports this is making his chest feel tight. He does not feel like this is is regular anxiety attack. Reports that he also had some hives last night and this morning that he woke up to the are completely gone at this time. On exam patient is alert and oriented x3. Not in any acute distress. Vital signs are stable within normal limits. Normal voice. No trismus/dr ooling/stridor. Posterior pharynx within normal limits no erythema or exudate is noted. Uvula is midline. No peritonsillar/pharyngeal/dental abscess. Thyroid appears normal. No obvious neck swelling. He has full range of move the neck. No meningeal signs noted. Lungs clear to auscultation. CV RRR. This patient presents with anterior neck pain most consistent with muscular skeletal pain. Differential diagnosis includes bacterial pharyngitis, influenza, COVID. Presentation not consistent with acute bacterial pneumonia, influenza, asthma, transient airway hyperresponsiveness. Presentation not consistent with chronic causes of cough (including GERD, asthma, postnasal discharge, medication side effect, CHF, lung cancer or mass). Patient was seen in triage and he had blood work done in the waiting room patient noted to have a leukocytosis of 16,000 which is new. Mild baseline anem ia with an H&H of 13.5/41.9 which is similar compared to prior. Otherwise all other labs are within normal limits including troponin. Patient negative for COVID/RSV/flu. Patient negative for mono. CT soft tissue neck negative for any acute processes noted. Chest x-ray revealed Previously identified parenchymal markings in the right upper lung field have improved with a residual amount noted. Therefore at this time patient was requesting for CT scan therefore CT scan of soft tissue neck without IV contrast ordered at this time. Along with viscous lidocaine given. Will re-evaluate. <RON Chery - Last Filed: 10/24/22 19:10> 43-year-old male with a past medical history of anxiety and hypertension who is presenting to the ER with complaints of throat pain/anterior neck pain that has been present for the past few weeks worse today. Reports that he was seen here on 10/15/2022 and diagnosed with bacterial pharyngitis placed on antibiotics Augmentin for 7 days along with prednisone and cough medicine and he took that as prescribed and no symptomatic relief. He reports he feels like someone is choking him and his throat is closing. Although patient reports he is able to swallow liquids and food without any difficulty. Reports he was also seen at [facility] on [facility] where he also tested positive for strep as well. He reports this is making his chest feel tight. He does not feel like this is is regular anxiety attack. Reports that he also had some hives last night and this morning that he woke up to the are completely gone at this time. On exam patient is alert and oriented x3. Not in any acute distress. Vital signs are stable within normal limits. Normal voice. No trismus/drooling /stridor. Posterior pharynx within normal limits no erythema or exudate is noted. Uvula is midline. No peritonsillar/pharyngeal/dental abscess. Thyroid appears normal. No obvious neck swelling. He has full range of move the neck. No meningeal signs noted. Lungs clear to auscultation. CV RRR. This patient presents with anterior neck pain most consistent with muscular skeletal pain. Differential diagnosis includes bacterial pharyngitis, influenza, COVID. Presentation not consistent with acute bacterial pneumonia, influenza, asthma, transient airway hyperresponsiveness. Presentation not consistent with chronic causes of cough (including GERD, asthma, postnasal discharge, medication side effect, CHF, lung cancer or mass). Patient was seen in triage and he had blood work done in the waiting room patient noted to have a leukocytosis of 16,000 which is new. Mild baseline anemia with an H&H of 13.5/41.9 which is similar compared to prior. Otherwise all other labs are within normal limits including troponin. Patient negative for COVID/RSV/flu. Patient negative for mono. CT soft tissue neck negative for any acute processes noted. Chest x-ray revealed Previously identified p arenchymal markings in the right upper lung field have improved with a residual amount noted. Therefore at this time patient was requesting for CT scan therefore CT scan of soft tissue neck without IV contrast ordered at this time. Along with viscous lidocaine given. Will re-evaluate. 20:06 CT of soft tissue neck negative for acute findings. There are ground- glass opacities however the prior provider treated for pneumonia with azithromycin and cefuroxime. Plan of care to discharge per prior providers discharge instructions. For lymphadenopathy, plan of care is for patient to follow-up with primary care physician. <Margaret Moreira NP - Last Filed: 10/25/22 01:23> Time: 15:15 <RON Chery - Last Filed: 10/24/22 19:10> Reevaluation #2: - Sign out to JENN Robles pending CT scan <RON Chery - Last Filed: 10/24/22 19:10> Time: 19:10 <RON Chery - Last Filed: 10/24/22 19:10> Medications Administered Discontinued Medications Generic Name Dose Route Start Last Admin Trade Name Freq PRN Reason Stop Dose Admin Lidocaine HCl 15 ml 10/24/22 15:13 10/24/22 15:26 Lidocaine Hcl Viscous 2 % 15 Ml Solution MUCOUS MEM 10/24/22 15:14 15 ml ONCE ONE Administration Lorazepam 1 mg 10/24/22 17:34 10/24/22 17:49 Lorazepam 1 Mg Tablet PO 10/24/22 17:35 1 mg ONCE ONE Administration <ALIYAH Wolf - Last Filed: 10/30/22 20:48> Medications Administered Discontinued Medications Generic Name Dose Route Start Last Admin Trade Name Freq PRN Reason Stop Dose Admin Lidocaine HCl 15 ml 10/24/22 15:13 10/24/22 15:26 Lidocaine Hcl Viscous 2 % 15 Ml Solution MUCOUS MEM 10/24/22 15:14 15 ml ONCE ONE Administration Lorazepam 1 mg 10/24/22 17:34 10/24/22 17:49 Lorazepam 1 Mg Tablet PO 10/24/22 17:35 1 mg ONCE ONE Administration <RON Chery - Last Filed: 10/24/22 19:10> Medications Administered Discontinued Medications Generic Name Dose Route Start Last Admin Trade Name Freq PRN Reason Stop Dose Admin Lidocaine HCl 15 ml 10/24/22 15:13 10/24/22 15:26 Lidocaine Hcl Viscous 2 % 15 Ml Solution MUCOUS MEM 10/24/22 15:14 15 ml ONCE ONE Administration Lorazepam 1 mg 10/24/22 17:34 10/24/22 17:49 Lorazepam 1 Mg Tablet PO 10/24/22 17:35 1 mg ONCE ONE Administration <Margaret Moreira NP - Last Filed: 10/25/22 01:23> Medical Decision Making Lab Data MDM Lab Attestation statement: I reviewed the patient's lab results. <RON Chery - Last Filed: 10/24/22 19:10> Result Diagrams: 10/24/22 13:54 10/24/22 13:54 <Carrol Gee [facility] - Last Filed: 10/30/22 20:48> Labs: Lab Results 10/24/22 10/24/22 10/24/22 Range/Units 13:54 13:54 13:54 WBC 16.4 H (4.8-10.8) X10*3/uL RBC 4.74 (4.60-5.80) X10*6/uL Hgb 13.5 L (14.0-18.0) g/dl Hct 41.9 L (42.0-52.0) % MCV 88.4 (80.0-98.0) fL MCH 28.5 (27.0-33.0) pg MCHC 32.2 (31.0-36.0) g/dl RDW 12.1 (11.0-16.0) % Plt Count 254 (160-400) X10*3/uL MPV 9.2 L (9.4-12.4) fL Immature Gran % (Auto) 0.6 H (0.0-0.4) % Neut % (Auto) 61.7 (45-73) % Lymph % (Auto) 31.9 (20-40) % Kaufman % (Auto) 5.1 (2-11) % Eos % (Auto) 0.2 (0-4) % Baso % (Auto) 0.5 (0-2) % Lymph # (Auto) 5.2 H (1.2-4.9) X10*3/uL Kaufman # (Auto) 0.8 (0.1-1.2) X10*3/uL Eos # (Auto) 0.0 (0.0-0.4) X10*3/uL Baso # (Auto) 0.1 (0.0-0.2) X10*3/uL Abs Immat Gran (auto) 0.09 H (0.00-0.03) X10*3/uL Absolute Neuts (auto) 10.1 H (2.0-8.3) x10*3/uL Absolute Nucleated RBC 0.000 (0.0-0.012) X10*3/uL Nucleated RBC % (auto) 0.0 (0.0-0.2) /100WBC Smear Tech's Comments VERIFIED Sodium 141 (135-145) mmol/L Potassium 4.9 (3.3-5.1) mmol/L Chloride 103 (96-108) mmol/L Carbon Dioxide 28 (22-29) mmol/L Anion Gap 15 (12-20) BUN 12 (9-16) mg/dL Creatinine 0.75 (0.5-1.4) mg/dL Estim Creat Clear Calc 161.0 Estimated GFR > 60 Random Glucose 100 (60-115) mg/dL Calcium 9.8 D (8.4-10.2) mg/dL Magnesium 2.1 (1.6-2.6) mg/dL Total Bilirubin 0.3 (0.0-1.0) mg/dL Direct Bilirubin < 0.2 (0.0-0.5) mg/dL AST 20 (5-37) U/L ALT 33 (0-40) U/L Alkaline Phosphatase 67 (39-117) U/L Troponin I High Sens < 3.5 (<3.5-35.0) ng/L Total Protein 7.8 (6.5-8.0) g/dL Albumin 4.5 (3.5-5.0) g/dL Lipase 31 (8-78) U/L Monoscreen (Negative) Influenza Type A (PCR) (Negative) Influenza Type B (PCR) (Negative) RSV RNA Qual (PCR) (Negative) SARS-CoV-2 RNA (RT-PCR) (Negative) 10/24/22 10/24/22 Range/Units 13:54 13:54 WBC (4.8-10.8) X10*3/uL RBC (4.60-5.80) X10*6/uL Hgb (14.0-18.0) g/dl Hct (42.0-52.0) % MCV (80.0-98.0) fL MCH (27.0-33.0) pg MCHC (31.0-36.0) g/dl RDW (11.0-16.0) % Plt Count (160-400) X10*3/uL MPV (9.4-12.4) fL Immature Gran % (Auto) (0.0-0.4) % Neut % (Auto) (45-73) % Lymph % (Auto) (20-40) % Kaufman % (Auto) (2-11) % Eos % (Auto) (0-4) % Baso % (Auto) (0-2) % Lymph # (Auto) (1.2-4.9) X10*3/uL Kaufman # (Auto) (0.1-1.2) X10*3/uL Eos # (Auto) (0.0-0.4) X10*3/uL Baso # (Auto) (0.0-0.2) X10*3/uL Abs Immat Gran (auto) (0.00-0.03) X10*3/uL Absolute Neuts (auto) (2.0-8.3) x10*3/uL Absolute Nucleated RBC (0.0-0.012) X10*3/uL Nucleated RBC % (auto) (0.0-0.2) /100WBC Smear Tech's Comments Sodium (135-145) mmol/L Potassium (3.3-5.1) mmol/L Chloride (96-108) mmol/L Carbon Dioxide (22-29) mmol/L Anion Gap (12-20) BUN (9-16) mg/dL Creatinine (0.5-1.4) mg/dL Estim Creat Clear Calc Estimated GFR Random Glucose (60-115) mg/dL Calcium (8.4-10.2) mg/dL Magnesium (1.6-2.6) mg/dL Total Bilirubin (0.0-1.0) mg/dL Direct Bilirubin (0.0-0.5) mg/dL AST (5-37) U/L ALT (0-40) U/L Alkaline Phosphatase (39-117) U/L Troponin I High Sens (<3.5-35.0) ng/L Total Protein (6.5-8.0) g/dL Albumin (3.5-5.0) g/dL Lipase (8-78) U/L Monoscreen Negative (Negative) Influenza Type A (PCR) NEGATIVE (Negative) Influenza Type B (PCR) NEGATIVE (Negative) RSV RNA Qual (PCR) NEGATIVE (Negative) SARS-CoV-2 RNA (RT-PCR) NEGATIVE (Negative) <Carrol Gee, [employer] WORKER-BC - Last Filed: 10/30/22 20:48> Lab Results 10/24/22 10/24/22 10/24/22 Range/Units 13:54 13:54 13:54 WBC 16.4 H (4.8-10.8) X10*3/uL RBC 4.74 (4.60-5.80) X10*6/uL Hgb 13.5 L (14.0-18.0) g/dl Hct 41.9 L (42.0-52.0) % MCV 88.4 (80.0-98.0) fL MCH 28.5 (27.0-33.0) pg MCHC 32.2 (31.0-36.0) g/dl RDW 12.1 (11.0-16.0) % Plt Count 254 (160-400) X10*3/uL MPV 9.2 L (9.4-12.4) fL Immature Gran % (Auto) 0.6 H (0.0-0.4) % Neut % (Auto) 61.7 (45-73) % Lymph % (Auto) 31.9 (20-40) % Kaufman % (Auto) 5.1 (2-11) % Eos % (Auto) 0.2 (0-4) % Baso % (Auto) 0.5 (0-2) % Lymph # (Auto) 5.2 H (1.2-4.9) X10*3/uL Kaufman # (Auto) 0.8 (0.1-1.2) X10*3/uL Eos # (Auto) 0.0 (0.0-0.4) X10*3/uL Baso # (Auto) 0.1 (0.0-0.2) X10*3/uL Abs Immat Gran (auto) 0.09 H (0.00-0.03) X10*3/uL Absolute Neuts (auto) 10.1 H (2.0-8.3) x10*3/uL Absolute Nucleated RBC 0.000 (0.0-0.012) X10*3/uL Nucleated RBC % (auto) 0.0 (0.0-0.2) /100WBC Smear Tech's Comments VERIFIED Sodium 141 (135-145) mmol/L Potassium 4.9 (3.3-5.1) mmol/L Chloride 103 (96-108) mmol/L Carbon Dioxide 28 (22-29) mmol/L Anion Gap 15 (12-20) BUN 12 (9-16) mg/dL Creatinine 0.75 (0.5-1.4) mg/dL Estim Creat Clear Calc 161.0 Estimated GFR > 60 Random Glucose 100 (60-115) mg/dL Calcium 9.8 D (8.4-10.2) mg/dL Magnesium 2.1 (1.6-2.6) mg/dL Total Bilirubin 0.3 (0.0-1.0) mg/dL Direct Bilirubin < 0.2 (0.0-0.5) mg/dL AST 20 (5-37) U/L ALT 33 (0-40) U/L Alkaline Phosphatase 67 (39-117) U/L Troponin I High Sens < 3.5 (<3.5-35.0) ng/L Total Protein 7.8 (6.5-8.0) g/dL Albumin 4.5 (3.5-5.0) g/dL Lipase 31 (8-78) U/L Monoscreen (Negative) Influenza Type A (PCR) (Negative) Influenza Type B (PCR) (Negative) RSV RNA Qual (PCR) (Negative) SARS-CoV-2 RNA (RT-PCR) (Negative) 10/24/22 10/24/22 Range/Units 13:54 13:54 WBC (4.8-10.8) X10*3/uL RBC (4.60-5.80) X10*6/uL Hgb (14.0-18.0) g/dl Hct (42.0-52.0) % MCV (80.0-98.0) fL MCH (27.0-33.0) pg MCHC (31.0-36.0) g/dl RDW (11.0-16.0) % Plt Count (160-400) X10*3/uL MPV (9.4-12.4) fL Immature Gran % (Auto) (0.0-0.4) % Neut % (Auto) (45-73) % Lymph % (Auto) (20-40) % Kaufman % (Auto) (2-11) % Eos % (Auto) (0-4) % Baso % (Auto) (0-2) % Lymph # (Auto) (1.2-4.9) X10*3/uL Kaufman # (Auto) (0.1-1.2) X10*3/uL Eos # (Auto) (0.0-0.4) X10*3/uL Baso # (Auto) (0.0-0.2) X10*3/uL Abs Immat Gran (auto) (0.00-0.03) X10*3/uL Absolute Neuts (auto) (2.0-8.3) x10*3/uL Absolute Nucleated RBC (0.0-0.012) X10*3/uL Nucleated RBC % (auto) (0.0-0.2) /100WBC Smear Tech's Comments Sodium (135-145) mmol/L Potassium (3.3-5.1) mmol/L Chloride (96-108) mmol/L Carbon Dioxide (22-29) mmol/L Anion Gap (12-20) BUN (9-16) mg/dL Creatinine (0.5-1.4) mg/dL Estim Creat Clear Calc Estimated GFR Random Glucose (60-115) mg/dL Calcium (8.4-10.2) mg/dL Magnesium (1.6-2.6) mg/dL Total Bilirubin (0.0-1.0) mg/dL Direct Bilirubin (0.0-0.5) mg/dL AST (5-37) U/L ALT (0-40) U/L Alkaline Phosphatase (39-117) U/L Troponin I High Sens (<3.5-35.0) ng/L Total Protein (6.5-8.0) g/dL Albumin (3.5-5.0) g/dL Lipase (8-78) U/L Monoscreen Negative (Negative) Influenza Type A (PCR) NEGATIVE (Negative) Influenza Type B (PCR) NEGATIVE (Negative) RSV RNA Qual (PCR) NEGATIVE (Negative) SARS-CoV-2 RNA (RT-PCR) NEGATIVE (Negative) <RON Chery - Last Filed: 10/24/22 19:10> Lab Results 10/24/22 10/24/22 10/24/22 Range/Units 13:54 13:54 13:54 WBC 16.4 H (4.8-10.8) X10*3/uL RBC 4.74 (4.60-5.80) X10*6/uL Hgb 13.5 L (14.0-18.0) g/dl Hct 41.9 L (42.0-52.0) % MCV 88.4 (80.0-98.0) fL MCH 28.5 (27.0-33.0) pg MCHC 32.2 (31.0-36.0) g/dl RDW 12.1 (11.0-16.0) % Plt Count 254 (160-400) X10*3/uL MPV 9.2 L (9.4-12.4) fL Immature Gran % (Auto) 0.6 H (0.0-0.4) % Neut % (Auto) 61.7 (45-73) % Lymph % (Auto) 31.9 (20-40) % Kaufman % (Auto) 5.1 (2-11) % Eos % (Auto) 0.2 (0-4) % Baso % (Auto) 0.5 (0-2) % Lymph # (Auto) 5.2 H (1.2-4.9) X10*3/uL Kaufman # (Auto) 0.8 (0.1-1.2) X10*3/uL Eos # (Auto) 0.0 (0.0-0.4) X10*3/uL Baso # (Auto) 0.1 (0.0-0.2) X10*3/uL Abs Immat Gran (auto) 0.09 H (0.00-0.03) X10*3/uL Absolute Neuts (auto) 10.1 H (2.0-8.3) x10*3/uL Absolute Nucleated RBC 0.000 (0.0-0.012) X10*3/uL Nucleated RBC % (auto) 0.0 (0.0-0.2) /100WBC Smear Tech's Comments VERIFIED Sodium 141 (135-145) mmol/L Potassium 4.9 (3.3-5.1) mmol/L Chloride 103 (96-108) mmol/L Carbon Dioxide 28 (22-29) mmol/L Anion Gap 15 (12-20) BUN 12 (9-16) mg/dL Creatinine 0.75 (0.5-1.4) mg/dL Estim Creat Clear Calc 161.0 Estimated GFR > 60 Random Glucose 100 (60-115) mg/dL Calcium 9.8 D (8.4-10.2) mg/dL Magnesium 2.1 (1.6-2.6) mg/dL Total Bilirubin 0.3 (0.0-1.0) mg/dL Direct Bilirubin < 0.2 (0.0-0.5) mg/dL AST 20 (5-37) U/L ALT 33 (0-40) U/L Alkaline Phosphatase 67 (39-117) U/L Troponin I High Sens < 3.5 (<3.5-35.0) ng/L Total Protein 7.8 (6.5-8.0) g/dL Albumin 4.5 (3.5-5.0) g/dL Lipase 31 (8-78) U/L Monoscreen (Negative) Influenza Type A (PCR) (Negative) Influenza Type B (PCR) (Negative) RSV RNA Qual (PCR) (Negative) SARS-CoV-2 RNA (RT-PCR) (Negative) 10/24/22 10/24/22 Range/Units 13:54 13:54 WBC (4.8-10.8) X10*3/uL RBC (4.60-5.80) X10*6/uL Hgb (14.0-18.0) g/dl Hct (42.0-52.0) % MCV (80.0-98.0) fL MCH (27.0-33.0) pg MCHC (31.0-36.0) g/dl RDW (11.0-16.0) % Plt Count (160-400) X10*3/uL MPV (9.4-12.4) fL Immature Gran % (Auto) (0.0-0.4) % Neut % (Auto) (45-73) % Lymph % (Auto) (20-40) % [place]aufman % (Auto) (2-11) % Eos % (Auto) (0-4) % Baso % (Auto) (0-2) % Lymph # (Auto) (1.2-4.9) X10*3/uL Kaufman # (Auto) (0.1-1.2) X10*3/uL Eos # (Auto) (0.0-0.4) X10*3/uL Baso # (Auto) (0.0-0.2) X10*3/uL Abs Immat Gran (auto) (0.00-0.03) X10*3/uL Absolute Neuts (auto) (2.0-8.3) x10*3/uL Absolute Nucleated RBC (0.0-0.012) X10*3/uL Nucleated RBC % (auto) (0.0-0.2) /100WBC Smear Tech's Comments Sodium (135-145) mmol/L Potassium (3.3-5.1) mmol/L Chloride (96-108) mmol/L Carbon Dioxide (22-29) mmol/L Anion Gap (12-20) BUN (9-16) mg/dL Creatinine (0.5-1.4) mg/dL Estim Creat Clear Calc Estimated GFR Random Glucose (60-115) mg/dL Calcium (8.4-10.2) mg/dL Magnesium (1.6-2.6) mg/dL Total Bilirubin (0.0-1.0) mg/dL Direct Bilirubin (0.0-0.5) mg/dL AST (5-37) U/L ALT (0-40) U/L Alkaline Phosphatase (39-117) U/L Troponin I High Sens (<3.5-35.0) ng/L Total Protein (6.5-8.0) g/dL Albumin (3.5-5.0) g/dL Lipase (8-78) U/L Monoscreen Negative (Negative) Influenza Type A (PCR) NEGATIVE (Negative) Influenza Type B (PCR) NEGATIVE (Negative) RSV RNA Qual (PCR) NEGATIVE (Negative) SARS-CoV-2 RNA (RT-PCR) NEGATIVE (Negative) <Margaret Moreira NP - Last Filed: 10/25/22 01:23> Independent Interpretation I performed an independent interpretation of an: Plain X-Ray and CT Scan <RON Chery - Last Filed: 10/24/22 19:10> Interpretation: Chest x-ray and CT soft tissue neck FINDINGS: Previously identified parenchymal markings in the right upper lung field have improved with a residual amount noted. No pneumothorax. Trachea is midline. Cardiac mediastinal silhouette is not enlarged. No large pleural effusion. Osseous structures are intact. Soft tissues are unremarkable. XR/XR chest 2V IMPRESSION: Previously identified parenchymal markings in the right upper lung field have improved with a residual amount noted. FINDINGS: Soft tissue films of the neck demonstrate a normal larynx, pharynx and upper trachea. No soft tissue swelling or opaque foreign body is demonstrated. XR/XR soft tissue neck IMPRESSION: Unremarkable soft tissue neck exam. <RON Chery - Last Filed: 10/24/22 19:10> Chest x-ray and CT soft tissue neck FINDINGS: Previously identified parenchymal markings in the right upper lung field have improved with a residual amount noted. No pneumothorax. Trachea is midline. Cardiac mediastinal silhouette is not enlarged. No large pleural effusion. Osseous structures are intact. Soft tissues are unremarkable. XR/XR chest 2V IMPRESSION: Previously identified parenchymal markings in the right upper lung field have improved with a residual amount noted. FINDINGS: Soft tissue films of the neck demonstrate a normal larynx, pharynx and upper trachea. No soft tissue swelling or opaque foreign body is demonstrated. XR/XR soft tissue neck IMPRESSION: Unremarkable soft tissue neck exam. FINDINGS: No significant cutaneous thickening or subcutaneous inflammation. No discrete fluid collection within the deep tissues of the neck. The premaxillary, retromaxillary, pterygopalatine fossa, orbital apical, parapharyngeal, and prelaryngeal adipose tissue is maintained. Normal appearance of the parotid, submandibular, and thyroid glands. A right level IIa lymph node measures up to 1.6 cm. A left level III lymph node measures up to 1.5 cm. Otherwise, bilateral cervical chain lymph nodes are mildly increased in number but largely remain subcentimeter in size. No demonstrated focal lesion within the intrinsic tissues of the tongue or floor of mouth. Normal mucosal contours of the pharynx and larynx. Normal appearance of the hyoid bone, thyroid cartilage, or cartilaginous trachea. The airways remains widely patent. No radiopaque foreign bodies. The atlantooccipital and atlantoaxial articulations remain well aligned. Mild reversal the normal cervical lordosis. Otherwise, normal anatomic alignment. No evidence of acute fracture or subluxation of the cervical spine. The vertebral body heights are maintained. Moderate degenerative disc disease at C5-C6 and C6-C7. Mild degenerative disc disease at all additional cervical levels. There is no prevertebral soft tissue swelling. The visualized portion of the skull base is without significant abnormalities. The visualized paranasal sinuses are clear. The mastoid air cells and middle ear cavities are clear. The maxillary teeth are absent. CT Upper Chest: Redemonstrated multifocal patchy groundglass opacities throughout the visualized upper lungs. CT/CT soft tissue neck wo IV con IMPRESSION: 1.? Nonspecific mildly prominent cervical chain lymph nodes. Right level IIa and left level III lymph nodes are mildly enlarged by CT size criteria; however, the etiology of this change remains nonspecific. 2.? Otherwise, no demonstrated focal lesion or collection within the soft tissues of the neck. 3.? Mild to moderate multilevel degenerative spinal arthropathy of the cervical spine. 4.? Redemonstrated multifocal patchy groundglass opacities throughout the visualized upper lungs. ? <Margaret Moreira NP - Last Filed: 10/25/22 01:23> Radiology Impression Discussion of test interpretation with radiology: I have reviewed the radiologist's reading. <RON Chery - Last Filed: 10/24/22 19:10> External Record Review External record reviewed: Inpatient record, Office record, Outpatient record, Prior outpatient labs, Prior outpatient radiology, Primary care record and Outside ED record <RON Chery - Last Filed: 10/24/22 19:10> Prescription Management I considered prescription management with: Pain Medication and Antibiotic <RON Chery - Last Filed: 10/24/22 19:10> Discharge Plan Discharge Clinical Impression: Pharyngitis <ALIYAH Wolf - Last Filed: 10/30/22 20:48> Patient Disposition: Home, Self-Care <ALIYAH Wolf - Last Filed: 10/30/22 20:48> Instructions: Pharyngitis (ED) <ALIYAH Wolf - Last Filed: 10/30/22 20:48> Additional Instructions: You were evaluated for neck discomfort. CT soft tissues neck is negative for acute findings requiring emergent intervention. Incidental findings of lymphadenopathy, this must be followed up by primary care physician. You are being treated for pneumonia for findings consistent with pneumonia. Please take antibiotics as directed. Thank you for choosing this emergency department for evaluation. Please follow-up with primary care physician as needed. Return to the emergency department for any new, concerning, or worsening symptoms. <ALIYAH Wolf - Last Filed: 10/30/22 20:48> Prescriptions: New azithromycin 250 mg tablet See Rx Instructions .ROUTE .COMPLEX Qty: 6 0RF Rx Instructions: For 250 mg dose pack: take 500 mg today (day 1), then 250 mg for 4 days (days 2-5) cefuroxime axetil 500 mg tablet 500 mg PO BID 7 Days Qty: 14 0RF prednisone 20 mg tablet 40 mg PO DAILY 5 Days Qty: 10 0RF No Action amoxicillin-pot clavulanate 875-125 mg tablet 1 tab PO Q12H Qty: 14 0RF prednisone 20 mg tablet 40 mg PO DAILY Qty: 10 0RF benzonatate 200 mg capsule 200 mg PO TID PRN (Reason: cough) Qty: 30 0RF <ALIYAH Wolf - Last Filed: 10/30/22 20:48> Referrals: Diann Ramirez MD [Primary Care Provider] - 1 day <ALIYAH Wolf - Last Filed: 10/30/22 20:48> Stand Alone Forms: Work/School Release <ALIYAH Wolf - Last Filed: 10/30/22 20:48> Interventions: ED Discharge Assessment Last Done: 10/24/22 20:13 <ALIYAH Wolf - Last Filed: 10/30/22 20:48> Discharge Date/Time: 10/24/22 20:13 <ALIYAH Wolf - Last Filed: 10/30/22 20:48>
--- NOTE | 2022-10-24 13:41 | ECG_ITS ---
Test Reason : CP Blood Pressure : / mmHG Vent. Rate : 064 BPM Atrial Rate : 064 BPM P-R Int : 208 ms QRS Dur : 084 ms QT Int : 390 ms P-R-T Axes : 052 019 032 degrees QTc Int : 402 ms Normal sinus rhythm Normal ECG When compared with ECG of 19-FEB-2021 17:07, Vent. rate has decreased BY 42 BPM Referred By: Carrol Gee Electronically Signed By:TRISH ZAMORA
[2022-10-24 14:06] LABS: Basophils Absolute Auto 0.1 X10*3/uL (0.0-0.2); Basophils Percent Auto 0.5 % (0-2); Eosinophils Percent Auto 0.2 % (0-4); Hematocrit 41.9 % (42.0-52.0); Hemoglobin 13.5 g/dl (14.0-18.0); Imm Gran Abs Auto 0.09 X10*3/uL (0.00-0.03); Imm Gran Pct Auto 0.6 % (0.0-0.4); Lymphocytes Absolute Auto 5.2 X10*3/uL (1.2-4.9); Lymphocytes Percent Auto 31.9 % (20-40); MANUAL DIFF FLAG SCAN; Mean Corpuscular HGB Conc 32.2 g/dl (31.0-36.0); Mean Corpuscular Hemoglobin 28.5 pg (27.0-33.0); Mean Corpuscular Volume 88.4 fL (80.0-98.0); Mean Platelet Volume 9.2 fL (9.4-12.4); Monocytes Absolute Auto 0.8 X10*3/uL (0.1-1.2); Monocytes Percent Auto 5.1 % (2-11); Neutrophils Absolute Auto 10.1 x10*3/uL (2.0-8.3); Neutrophils Percent Auto 61.7 % (45-73); Platelet Count 254 X10*3/uL (160-400); Red Blood Count 4.74 X10*6/uL (4.60-5.80); Red Cell Distribution Width 12.1 % (11.0-16.0); SCAN SMEAR FLAG 1; White Blood Count 16.4 X10*3/uL (4.8-10.8)
[2022-10-24 14:16] LABS: Anion Gap 15 (12-20); Blood Urea Nitrogen 12 mg/dL (9-16); Calcium 9.8 mg/dL (8.4-10.2); Carbon Dioxide 28 mmol/L (22-29); Chloride 103 mmol/L (96-108); Estimated Glomerular Filt Rate > 60; Glucose Random 100 mg/dL (60-115); Potassium 4.9 mmol/L (3.3-5.1); Sodium 141 mmol/L (135-145)
[2022-10-24 14:24] LABS: Troponin-I High Sensitivity < 3.5 ng/L (<3.5-35.0)
[2022-10-24 14:40] LABS: SLIDE REVIEW VERIFIED
[2022-10-24 15:05] LABS: Influenza A PCR NEGATIVE (Negative); Influenza B PCR NEGATIVE (Negative); Resp Syncy Virus RNA Qual PCR NEGATIVE (Negative); SARS COV2 PCR INHOUSE NEGATIVE (Negative)
[2022-10-24] MEDS: Lidocaine HCl Viscous 2 % 15 ML SOLUTION MUCOUS MEM (15:26)
[2022-10-24 15:33] LABS: Alanine Aminotransferase 33 U/L (0-40); Albumin Level 4.5 g/dL (3.5-5.0); Alkaline Phosphatase 67 U/L (39-117); Aspartate Amino Transferase 20 U/L (5-37); Bilirubin Direct < 0.2 mg/dL (0.0-0.5); Bilirubin Total 0.3 mg/dL (0.0-1.0); Lipase 31 U/L (8-78); Magnesium 2.1 mg/dL (1.6-2.6); Total Protein 7.8 g/dL (6.5-8.0)
[2022-10-24 15:49] LABS: Monotest Negative (Negative)
[2022-10-24] MEDS: LORazepam 1 MG TABLET PO (17:49)
--- NOTE | 2022-10-24 17:50 | PC.NURSE ---
pt reporting increasing anxiety, normally takes ativan at home, medicated per provider order. pt reports seeing double w headache. provider aware.
== END 2022-10-24 20:13 | disposition home or self-care (01) ==
PROVIDERS: Nurse Practitioner Family; Physician Assistant Medical; Emergency Provider Emergency Medicine Emergency Medical Services; PCP Internal Medicine
DX: J02.9 Acute pharyngitis, unspecified (principal); M54.2 Cervicalgia; R07.89 Other chest pain; Z20.822 Contact with and (suspected) exposure to COVID-19; Z79.899 Other long term (current) drug therapy
CPT/HCPCS: 0241U; 70360; 70490; 71046; 80048; 80076; 83690; 83735; 84484; 85025; 86308; 93005; 99283; 99284

== ENCOUNTER 2024-03-11 13:01 | Outpatient (REF) | payer MEDICAID, SELFPAY ==
[2024-03-11 14:29] LABS: MANUAL DIFF FLAG NO
[2024-03-11 14:36] LABS: Basophils Absolute Auto 0.1 X10*3/uL (0.0-0.2); Basophils Percent Auto 0.8 % (0-2); Eosinophils Absolute Auto 0.2 X10*3/uL (0.0-0.4); Eosinophils Percent Auto 3.5 % (0-4); Hematocrit 38.4 % (42.0-52.0); Hemoglobin 12.7 g/dl (14.0-18.0); Imm Gran Abs Auto 0.03 X10*3/uL (0.00-0.03); Imm Gran Pct Auto 0.5 % (0.0-0.4); Lymphocytes Percent Auto 32.8 % (20-40); Mean Corpuscular HGB Conc 33.1 g/dl (31.0-36.0); Mean Corpuscular Hemoglobin 28.6 pg (27.0-33.0); Mean Corpuscular Volume 86.5 fL (80.0-98.0); Monocytes Absolute Auto 0.4 X10*3/uL (0.1-1.2); Monocytes Percent Auto 7.1 % (2-11); Neutrophils Absolute Auto 3.4 x10*3/uL (2.0-8.3); Neutrophils Percent Auto 55.3 % (45-73); Red Blood Count 4.44 X10*6/uL (4.60-5.80); Red Cell Distribution Width 11.9 % (11.0-16.0); White Blood Count 6.2 X10*3/uL (4.8-10.8)
[2024-03-11 15:01] LABS: Amphetamine Screen Urine Not Detected (Not Detect); Barbiturates, Urine Not Detected (Not Detect); Benzodiazepines Screen Urine Not Detected (Not Detect); Buprenorphine Scr Positive (Not Detect); Cannabinoid Screen Urine Not Detected (Not Detect); Cocaine Screen Urine Not Detected (Not Detect); Fentanyl, urine Not Detected (Not Detect); Methadone Screen, Urine Not Detected (Not Detect); Opiate Screen Urine Not Detected (Not Detect); Oxycodone Screen Urine Not Detected (Not Detect); Phencyclidine Screen Urine Not Detected (Not Detect)
[2024-03-11 15:03] LABS: Mean Platelet Volume 10.7 fL (9.4-12.4); Platelet Count 141 X10*3/uL (160-400)
[2024-03-11 15:09] LABS: Alanine Aminotransferase 13 U/L (0-40); Albumin Level 4.1 g/dL (3.5-5.0); Alkaline Phosphatase 80 U/L (39-117); Anion Gap 11 (12-20); Aspartate Amino Transferase 13 U/L (5-37); Bilirubin Total 0.3 mg/dL (0.0-1.0); Blood Urea Nitrogen 10 mg/dL (9-16); Calcium 9.3 mg/dL (8.4-10.2); Carbon Dioxide 29 mmol/L (22-29); Chloride 105 mmol/L (96-108); Cholesterol 141 mg/dL (<200); Estimated Glomerular Filt Rate > 60; Glucose Random 107 mg/dL (60-115); HDL Cholesterol 40 mg/dL (>40); LDL Cholesterol Calculated 93 mg/dL (<100); Potassium 3.9 mmol/L (3.3-5.1); Sodium 141 mmol/L (135-145); Triglycerides 40 mg/dL (<150)
[2024-03-11 15:12] LABS: Folate 6.3 ng/mL (> or = 4.0); Vitamin B12 387 pg/mL (200-900)
== END 2024-03-11 13:02 | disposition home or self-care (01) ==
LOC: HO.CHCLDS 13:01
PROVIDERS: Visit Provider Internal Medicine
DX: I10 Essential (primary) hypertension (principal); F41.9 Anxiety disorder, unspecified; R07.89 Other chest pain; R20.0 Anesthesia of skin
CPT/HCPCS: 36415; 80053; 80061; 80307; 82306; 82607; 82746; 84443; 85025

== ENCOUNTER 2024-03-16 11:54 | Outpatient (REF) | payer MEDICAID, SELFPAY ==
[2024-03-16 15:00] LABS: Immature Retic Fraction 15.3 % (2.3-13.4); Retic HGB Equivalent 33.6 pg (30.0-35.0); Reticulocyte Percent 2.8 % (0.5-1.8); Reticulocytes Absolute 0.127 X10*6/uL (0.026-0.095)
[2024-03-16 15:35] LABS: Ferritin 118 ng/mL (20-250); Iron 55 mcg/dL (45-160); Percent Iron Saturation 21 % (15-50); Total Iron Binding Capacity 261 mcg/dL (228-428); Unsaturated Iron Binding 206 ug/dL
== END 2024-03-16 11:55 | disposition home or self-care (01) ==
LOC: HO.CHCLDS 11:54
PROVIDERS: Visit Provider Internal Medicine
DX: D50.9 Iron deficiency anemia, unspecified (principal)
CPT/HCPCS: 36415; 82728; 83540; 85045

== ENCOUNTER 2024-03-24 11:37 | Emergency (ER) | payer MEDICAID, SELFPAY ==
--- NOTE | ~2024-03-24 | XR_ITS ---
EXAMINATION: XR CHEST CLINICAL INFORMATION: Weakness. COMPARISON: Chest radiograph 10/24/2022. TECHNIQUE: 2 views of the chest were obtained. FINDINGS: Normal appearance of the cardiomediastinal silhouette. No focal airspace opacities, pleural effusion or pneumothorax. No acute osseous findings. Visualized upper abdomen is within normal limits. XR/XR chest 2V IMPRESSION: No acute cardiopulmonary findings.
--- NOTE | ~2024-03-24 | CT_ITS ---
EXAMINATION: CT HEAD WITHOUT CONTRAST CLINICAL INFORMATION: Headache COMPARISON: None. TECHNIQUE: Contiguous axial imaging was performed from the skull base to vertex without intravenous administration of contrast. Coronal and sagittal reformatted images are performed at the CT scanner. [This CT examination was performed using dose optimization techniques as appropriate, variously including the following: *Automated exposure control *Adjustment of mA and/or kV according to patient size (this includes techniques or standardized protocols for targeted exams where dose is matched to indication/reason for exam; i.e. extremities or head) *Use of iterative reconstruction technique] DLP: 673 mGy-cm. FINDINGS: There is no evidence of acute intracranial hemorrhage or territorial infarction. No abnormal mass-effect or midline shift is seen. Allen to white matter differentiation is well preserved. No extra-axial fluid collections are identified. The ventricles are normal in size. There is no abnormal attenuation within the brain parenchyma. There is no osseous abnormality. The mastoid air cells and visualized portions of the paranasal sinuses are well-aerated. CT/CT head/brain wo IV con IMPRESSION: No acute intracranial pathology.
--- NOTE | 2024-03-24 11:58 | ED.GENADULT ---
HPI - General Adult General Chief complaint: Weakness Stated complaint: numbness, sob, weak Time Seen by Provider: 03/24/24 13:15 Source: patient Mode of arrival: ambulatory Limitations: no limitations History of Present Illness HPI narrative: 43-year-old male past medical history significant for anxiety and hypertension presents emergency department with multiple complaints he states he is toes felt numb intermittently for the past several months he also feels a similar sensation to his left shoulder at times does not have either symptoms at this moment. He also states he has a right-sided headache he denies history of headaches or migraines denies any falls or injuries has not taken Tylenol ibuprofen with relief he denies any other neuro symptoms weakness nausea vomiting or diarrhea. Related Data Previous Rx's ?Medication ?Instructions ?Recorded amoxicillin 875 mg-potassium 1 tab PO Q12H #14 tabs 10/15/22 clavulanate 125 mg tablet benzonatate 200 mg capsule 200 mg PO TID PRN cough #30 caps 10/15/22 prednisone 20 mg tablet 40 mg (2 x 20 mg) PO DAILY #10 tabs 10/15/22 azithromycin 250 mg tablet See Rx Instructions PO .COMPLEX #6 10/24/22 tabs cefuroxime axetil 500 mg tablet 500 mg PO BID 7 days #14 tabs 10/24/22 prednisone 20 mg tablet 40 mg (2 x 20 mg) PO DAILY 10/24/22 inflammation 5 days #10 tabs Allergies Allergy/AdvReac Type Severity Reaction Status Date / Time No Known Allergies Allergy Verified 03/24/24 12:03 Review of Systems Review of Systems: Review of systems: General: Patient denies any fever chills recent illness or falls Musculoskeletal: Denies back pain or body aches or other injuries HEENT: denies headache, runny nose, ear pain Respiratory: denies shortness of breath, cough Cardiovascular: no chest pain or palpitations : denies dysuria, frequency Abdomen: no nausea vomiting denies abdominal pain Extremities: no swelling, no pain Skin: no diaphoresis Yes all other systems are reviewed and are negative [facility] Past Medical History Medical History Anxiety Hypertension Social History Social History Alcohol intake: former Substance Use Type: Opiates Advance Directives: No Physical Exam ED Vital Signs: Vital Signs - 24 hr 03/24/24 11:59 03/24/24 14:38 Temperature 98 F 97 F Pulse Rate 51 52 Respiratory Rate 16 13 Blood Pressure 139/83 115/69 Pulse Oximetry 100 99 Oxygen Delivery Method Room Air Room Air BMI result Body Mass Index 34.9 Neurological exam: CN II- XII tested. Patient is alert and oriented to person place and time. Patient has no dysphagia or dysarthia, denies good vision in all four vision way no nystagmus on exam, good strength to upper and lower extremities with normal reflexes to brachioradialis, wrist, patella and achilles. Negative romberg, good finger to nose and heel to davidson. General: Well-appearing well-nourished in no signs of distress HEENT: Normocephalic atraumatic Neck: No signs of JVD, no masses no tenderness or lymphadenopathy Cardiovascular: Regular rate and rhythm Respiratory: Clear to auscultation bilaterally Abdomen: Soft nontender no masses Extremities: Normal pedal pulses no signs of edema focused exam done to the lower extremity patient has sensation a normal range of motion and has normal sensation and knowledge of when I am bending his big toe down or up Skin: Dry warm no rashes Back: No tenderness full ROM Course Course Course Narrative: This is a rapid medical exam performed by Kai Hahn NP: Additional HPI, ROS, PE not included below will be deferred to primary provider. Patient is a 43-year-old male presenting with complaint of numbness to his toes for the past month. The past week developed pressure and numbness in the face on the right side, behind his eye, in his arms, headaches. Had labs done at [facility] and was told platelets were low along with other things, unsure what. Has gained 10-15lbs in past few weeks. Noticed black stool this morning. Complaining of chest pressure. 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 Baeza on 04/08. Denies any known rashes/tick bites. Plan: labs Reevaluation(s) Reevaluation #1: 0615 Patient requested Xr and CT which was all normal. Labs were okay offered a work note I will send home. Medications Administered Discontinued Medications Generic Name Dose Route Start Last Admin Trade Name Freq PRN Reason Stop Dose Admin Acetaminophen 650 mg 03/24/24 13:35 03/24/24 13:52 Acetaminophen 325 Mg Tablet PO 03/24/24 13:36 650 mg ONCE ONE Administration Sodium Chloride 1,000 mls @ 999 mls/hr 03/24/24 13:45 03/24/24 15:48 Ns IV 03/24/24 14:45 Infused .Q1H1M SANTIAGO Infusion Ketorolac Tromethamine 15 mg 03/24/24 13:35 03/24/24 13:52 Ketorolac Tromethamine 30 Mg/Ml Vial IM 03/24/24 13:36 15 mg ONCE ONE Administration Medical Decision Making Medical Decision Making [facility] Narrative: Patient with multiple complaints nothing obvious patient does not look toxic sent for a CT scan labs were already are unremarkable I did explain this the patient will get a chest x-ray as well Differential Diagnosis Differential Diagnoses: The differential diagnosis associated with the presentation includes Weakness less likely stroke could have a brain mass functional headache dehydration Admission/Observation Consideration of admission/observation: Escalation of care including admission/observation considered Lab Data [facility] Lab Attestation statement: I reviewed the patient's lab results. 03/24/24 12:15 03/24/24 12:15 Labs: Lab Results 03/24/24 Range/Units 12:15 WBC 8.3 (4.8-10.8) X10*3/uL RBC 4.86 (4.60-5.80) X10*6/uL Hgb 14.0 (14.0-18.0) g/dl Hct 41.0 L (42.0-52.0) % MCV 84.4 (80.0-98.0) fL MCH 28.8 (27.0-33.0) pg MCHC 34.1 (31.0-36.0) g/dl RDW 12.2 (11.0-16.0) % Plt Count 122 L (160-400) X10*3/uL MPV 10.8 (9.4-12.4) fL Immature Gran % (Auto) 0.7 H (0.0-0.4) % Neut % (Auto) 62.4 (45-73) % Lymph % (Auto) 27.4 (20-40) % Lipscomb % (Auto) 5.6 (2-11) % Eos % (Auto) 3.3 (0-4) % Baso % (Auto) 0.6 (0-2) % Lymph # (Auto) 2.3 (1.2-4.9) X10*3/uL Lipscomb # (Auto) 0.5 (0.1-1.2) X10*3/uL Eos # (Auto) 0.3 (0.0-0.4) X10*3/uL Baso # (Auto) 0.1 (0.0-0.2) X10*3/uL Abs Immat Gran (auto) 0.06 H (0.00-0.03) X10*3/uL Absolute Neuts (auto) 5.2 (2.0-8.3) x10*3/uL Absolute Nucleated RBC 0.000 (0.0-0.012) X10*3/uL Nucleated RBC % (auto) 0.0 (0.0-0.2) /100WBC Smear Tech's Comments VERIFIED PT 12.4 (11.1-13.3) SEC INR 1.0 (0.9-1.1) Sodium 140 (135-145) mmol/L Potassium 3.6 (3.3-5.1) mmol/L Chloride 106 (96-108) mmol/L Carbon Dioxide 27 (22-29) mmol/L Anion Gap 11 L (12-20) BUN 8 L (9-16) mg/dL Creatinine 0.84 (0.5-1.4) mg/dL Estim Creat Clear Calc 145.2 Estimated GFR > 60 Random Glucose 113 (60-115) mg/dL Calcium 9.3 (8.4-10.2) mg/dL Magnesium 1.9 (1.6-2.6) mg/dL Ferritin 109 (20-250) ng/mL Total Bilirubin 0.3 (0.0-1.0) mg/dL AST 15 (5-37) U/L ALT 13 (0-40) U/L Alkaline Phosphatase 79 (39-117) U/L Troponin I High Sens < 2.7 (<3.5-35.0) ng/L Total Protein 7.5 (6.5-8.0) g/dL Albumin 4.3 (3.5-5.0) g/dL TSH 1.53 (0.32-4.0) uIU/mL Independent Interpretation I performed an independent interpretation of an: Plain X-Ray and CT Scan Radiology Impression Discussion of test interpretation with radiology: I have reviewed the radiologist's reading. External Record Review External record reviewed: Inpatient record, Office record and Outpatient record Chronic Conditions Patient?s care impacted by: Hypertension Core Measures AMI core measures followed: No Discharge Plan Discharge Clinical Impression: Dehydration, Headache Patient Disposition: Home, Self-Care Instructions: Dehydration (ED), Acute Headache (DC) Additional Instructions: You were seen today for headache chest pain shortness breath weakness and black stools. He had x-ray labs CT which was normal. Please call follow-up with your doctor if you have any other concerns please return to emergency department. Prescriptions: No Action azithromycin 250 mg tablet See Rx Instructions .ROUTE .COMPLEX Qty: 6 0RF Rx Instructions: For 250 mg dose pack: take 500 mg today (day 1), then 250 mg for 4 days (days 2-5) cefuroxime axetil 500 mg tablet 500 mg PO BID 7 Days Qty: 14 0RF prednisone 20 mg tablet 40 mg PO DAILY 5 Days Qty: 10 0RF amoxicillin-pot clavulanate 875-125 mg tablet 1 tab PO Q12H Qty: 14 0RF prednisone 20 mg tablet 40 mg PO DAILY Qty: 10 0RF benzonatate 200 mg capsule 200 mg PO TID PRN (Reason: cough) Qty: 30 0RF Print Language: Dominican
[2024-03-24 11:59] VITALS: BP 139/83; PULSE 51; RESP 16; TEMP 36.6; O2SAT 100; BMI 34.9
--- NOTE | 2024-03-24 12:03 | ECG_ITS ---
Test Reason : CHEST PRESSURE Blood Pressure : / mmHG Vent. Rate : 049 BPM Atrial Rate : 049 BPM P-R Int : 192 ms QRS Dur : 098 ms QT Int : 414 ms P-R-T Axes : 067 027 037 degrees QTc Int : 373 ms Sinus bradycardia with marked sinus arrhythmia Possible Anterior infarct , age undetermined Abnormal ECG When compared with ECG of 24-OCT-2022 13:46, Nonspecific T wave abnormality now evident in Anterior leads Referred By: Veronica Hahn Electronically Signed By:ERA JARQUIN MD
[2024-03-24 12:41] LABS: Prothrombin Time 12.4 SEC (11.1-13.3)
[2024-03-24 12:42] LABS: Basophils Absolute Auto 0.1 X10*3/uL (0.0-0.2); Basophils Percent Auto 0.6 % (0-2); Eosinophils Absolute Auto 0.3 X10*3/uL (0.0-0.4); Eosinophils Percent Auto 3.3 % (0-4); Imm Gran Abs Auto 0.06 X10*3/uL (0.00-0.03); Imm Gran Pct Auto 0.7 % (0.0-0.4); Lymphocytes Absolute Auto 2.3 X10*3/uL (1.2-4.9); Lymphocytes Percent Auto 27.4 % (20-40); MANUAL DIFF FLAG SCAN; Mean Corpuscular HGB Conc 34.1 g/dl (31.0-36.0); Mean Corpuscular Hemoglobin 28.8 pg (27.0-33.0); Mean Corpuscular Volume 84.4 fL (80.0-98.0); Monocytes Absolute Auto 0.5 X10*3/uL (0.1-1.2); Monocytes Percent Auto 5.6 % (2-11); Neutrophils Absolute Auto 5.2 x10*3/uL (2.0-8.3); Neutrophils Percent Auto 62.4 % (45-73); PLT CLUMP 1; Red Blood Count 4.86 X10*6/uL (4.60-5.80); Red Cell Distribution Width 12.2 % (11.0-16.0); SCAN SMEAR FLAG 1
[2024-03-24 12:52] LABS: Alanine Aminotransferase 13 U/L (0-40); Albumin Level 4.3 g/dL (3.5-5.0); Alkaline Phosphatase 79 U/L (39-117); Anion Gap 11 (12-20); Aspartate Amino Transferase 15 U/L (5-37); Bilirubin Total 0.3 mg/dL (0.0-1.0); Blood Urea Nitrogen 8 mg/dL (9-16); Calcium 9.3 mg/dL (8.4-10.2); Carbon Dioxide 27 mmol/L (22-29); Chloride 106 mmol/L (96-108); Creatinine Clr Calc Pharmacy 145.2; Estimated Glomerular Filt Rate > 60; Glucose Random 113 mg/dL (60-115); Magnesium 1.9 mg/dL (1.6-2.6); Potassium 3.6 mmol/L (3.3-5.1); Sodium 140 mmol/L (135-145); Total Protein 7.5 g/dL (6.5-8.0)
[2024-03-24 12:53] LABS: Troponin-I High Sensitivity < 2.7 ng/L (<3.5-35.0)
[2024-03-24 13:05] LABS: Ferritin 109 ng/mL (20-250)
[2024-03-24 13:06] LABS: TSH reflex Free T4 1.53 uIU/mL (0.32-4.0)
[2024-03-24 13:21] LABS: Mean Platelet Volume 10.8 fL (9.4-12.4); Platelet Count 122 X10*3/uL (160-400); White Blood Count 8.3 X10*3/uL (4.8-10.8)
[2024-03-24 13:22] LABS: SLIDE REVIEW VERIFIED
[2024-03-24] MEDS: 0.9 % Sodium Chloride 1,000 ML 999 ML IV (13:52)
[2024-03-24] MEDS: Acetaminophen 325 MG TABLET 650 MG PO (13:52)
[2024-03-24] MEDS: Ketorolac Tromethamine 30 MG/ML VIAL 15 MG IM (13:52)
--- NOTE | 2024-03-24 14:00 | PC.NURSE ---
a&ox4. vss and up to date. pt presents to the ED w/ right sided SUTTON as well as numbness/tingling that radiates from right side of face to entire side of right body down to toes. pt denies change of vision/lightheadedness/dizziness. pt c/o 04/28 SUTTON. 20gIV placed in the right AC - medication IVF/ administered per provider order. effectiveness pending. pt to xray at this time.
[2024-03-24 14:38] VITALS: BP 115/69; PULSE 52; RESP 13; TEMP 36.1; O2SAT 99
[2024-03-24 15:57] VITALS: BP 129/78; PULSE 54; RESP 14; TEMP 36.4; O2SAT 99
[2024-03-24 16:07] VITALS: BP 129/78; PULSE 54; RESP 14; TEMP 36.4; O2SAT 99
[2024-03-26 14:03] LABS: A. Phagocytphilium DNA,RT-PCR NOT DETECTED (NOT DETECTED); Babesia Microti DNA, RT-PCR NOT DETECTED (NOT DETECTED); Borrelia Miyamotoi,DNA RT-PCR NOT DETECTED (NOT DETECTED); E.Chaffeensis DNA RT-PCR NOT DETECTED (NOT DETECTED); Lyme(Borrelia ssp)DNA RT-PCR NOT DETECTED (NOT DETECTED)
== END 2024-03-24 16:07 | disposition home or self-care (01) ==
PROVIDERS: Registered Nurse Emergency; Emergency Provider Student in an Organized Health Care Education/Training Program; PCP Internal Medicine
DX: E86.0 Dehydration (principal); R51.9 Headache, unspecified; I10 Essential (primary) hypertension; Z79.899 Other long term (current) drug therapy
CPT/HCPCS: 36415; 70450; 71046; 80053; 82728; 83735; 84443; 84484; 85025; 85610; 87468; 87469; 87478; 87484; 87798; 93005; 96360; 96361; 96372; 99284; J1885

== ENCOUNTER → 2024-03-24 12:03 | Outpatient (BNV) | payer MEDICAID, SELFPAY | PROVIDERS: Emergency Provider Student in an Organized Health Care Education/Training Program; PCP Internal Medicine; Visit Provider Internal Medicine Cardiovascular Disease | DX: R94.31 Abnormal electrocardiogram [ECG] [EKG] (principal) | CPT/HCPCS: 93010 ==

== ENCOUNTER 2024-03-29 12:33 | Outpatient (REF) | payer MEDICAID, SELFPAY ==
[2024-03-29 14:21] LABS: MANUAL DIFF FLAG NO
[2024-03-29 14:27] LABS: Basophils Percent Auto 0.6 % (0-2); Eosinophils Absolute Auto 0.2 X10*3/uL (0.0-0.4); Eosinophils Percent Auto 2.7 % (0-4); Hematocrit 41.3 % (42.0-52.0); Hemoglobin 13.6 g/dl (14.0-18.0); Imm Gran Abs Auto 0.02 X10*3/uL (0.00-0.03); Imm Gran Pct Auto 0.3 % (0.0-0.4); Lymphocytes Percent Auto 28.7 % (20-40); Mean Corpuscular HGB Conc 32.9 g/dl (31.0-36.0); Mean Corpuscular Hemoglobin 28.4 pg (27.0-33.0); Mean Corpuscular Volume 86.2 fL (80.0-98.0); Mean Platelet Volume 10.4 fL (9.4-12.4); Monocytes Absolute Auto 0.5 X10*3/uL (0.1-1.2); Neutrophils Absolute Auto 4.3 x10*3/uL (2.0-8.3); Neutrophils Percent Auto 60.7 % (45-73); Platelet Count 149 X10*3/uL (160-400); Red Blood Count 4.79 X10*6/uL (4.60-5.80); Red Cell Distribution Width 12.3 % (11.0-16.0); White Blood Count 7.1 X10*3/uL (4.8-10.8)
[2024-03-29 14:55] LABS: C Reactive Protein 0.37 mg/dL (< or = 0.50)
[2024-03-29 15:15] LABS: Erythrocyte Sedimentation Rate 6 MM/HR (0-15)
[2024-03-30 12:38] LABS: RPR Rapid Plasma Reagin NON-REACTIVE (NON-REACTIVE)
[2024-03-30 18:39] LABS: Cytomegalovirus Ab IgG <0.60 U/mL; Cytomegalovirus Ab IgM <30.00 AU/mL; EBV-NA IgG Index >600.00 U/mL; EBV-VCA IgM Ab <36.00 U/mL
== END 2024-03-29 12:34 | disposition home or self-care (01) ==
LOC: HO.CHCLDS 12:33
PROVIDERS: Visit Provider Internal Medicine
DX: R53.83 Other fatigue (principal)
CPT/HCPCS: 36415; 85025; 85652; 86140; 86592; 86644; 86645; 86664; 86665

== ENCOUNTER → 2024-04-08 13:57 | Outpatient (BNV) | payer MEDICAID, SELFPAY | PROVIDERS: Visit Provider Internal Medicine | DX: D69.6 Thrombocytopenia, unspecified (principal) | CPT/HCPCS: 99204; 99214; G2211 ==

== ENCOUNTER 2024-04-30 07:53 | Outpatient (REF) | payer MEDICAID, SELFPAY ==
--- NOTE | ~2024-04-30 | US_ITS ---
EXAMINATION: US ABDOMEN COMPLETE CLINICAL INFORMATION: Low platelets, question liver disease. COMPARISON: CT abdomen and pelvis 02/24/2014. TECHNIQUE: Real-time imaging of the abdominal viscera. FINDINGS: PANCREAS: The visualized portions of the pancreas are unremarkable but a large portion of the gland is obscured by bowel gas. ABDOMINAL AORTA: The proximal aorta is obscured by bowel gas but otherwise no evidence of an aneurysm. INFERIOR VENA CAVA: Visualized portions are normal. LIVER: The liver is normal in size. The liver contour is normal. There is diffuse increased liver parenchymal echogenicity, consistent with hepatic steatosis. No focal hepatic lesion. There is no intrahepatic biliary duct dilatation seen. GALLBLADDER: Normal. The gallbladder is physiologically distended without evidence of stones, sludge, polyps, wall thickening or pericholecystic fluid. COMMON BILE DUCT: Normal in caliber measuring 0.3 cm in diameter. RIGHT KIDNEY: Normal. No hydronephrosis. No renal calculi or focal parenchymal lesions. The kidney measures 12.4 cm in maximum dimension. LEFT KIDNEY: Normal. No hydronephrosis. No renal calculi or focal parenchymal lesions. The kidney measures 11.8 cm in maximum dimension. SPLEEN: Normal. The spleen measures 11.6 cm in maximum dimension. FREE FLUID: None. US/US abdomen complete IMPRESSION: Hepatic steatosis.
== END 2024-04-30 07:54 | disposition home or self-care (01) ==
LOC: HO.US 07:53
PROVIDERS: PCP Internal Medicine; Visit Provider Internal Medicine
DX: D69.6 Thrombocytopenia, unspecified (principal)
CPT/HCPCS: 76700

== ENCOUNTER 2024-08-10 12:24 | Outpatient (REF) | payer MEDICAID, SELFPAY ==
--- NOTE | ~2024-08-10 | XR_ITS ---
EXAMINATION: XR CHEST CLINICAL INFORMATION: Cough COMPARISON: Chest x-ray March 24, 2024 TECHNIQUE: 2 views of the chest were obtained. FINDINGS: Cardiac silhouette is normal in size. The lungs are well aerated. There is no lobar consolidation. No pleural effusion or pneumothorax. Mild degenerative changes of the spine. XR/XR chest 2V IMPRESSION: No acute pulmonary pathology. Electronically signed by: Tim Ramirez MD 08/11/2024 01:51 PM EDT
== END 2024-08-10 12:25 | disposition home or self-care (01) ==
LOC: HO.XRAY 12:24
PROVIDERS: PCP Internal Medicine; Visit Provider Internal Medicine
DX: R05.9 Cough, unspecified (principal)
CPT/HCPCS: 71046

== ENCOUNTER 2024-09-30 08:31 | Outpatient (REF) | payer MEDICAID, SELFPAY ==
--- NOTE | ~2024-09-30 | FL_ITS ---
EXAMINATION: XR FLUOROSCOPY UPPER GI WITH AIR CLINICAL INFORMATION: Dysphagia COMPARISON: None TECHNIQUE: Fluoroscopic air contrast upper GI examination was performed utilizing standard techniques with thin and thick barium and effervescent granules. Numerous spot images were obtained. FINDINGS: Lateral cine images of the oropharynx and hypopharynx demonstrate normal swallow mechanism with normal epiglottic inversion and soft palate elevation. No tracheal penetration, glottic or subglottic aspiration identified. No nasopharyngeal reflux present. Hypopharyngeal structures appear normal without evidence of mass or diverticulum. There was no significant cricopharyngeal achalasia. Dual and single contrast images of the esophagus demonstrate normal caliber, contour, and mucosal pattern. No evidence of stricture, mass, or ulcerations identified. Esophageal peristalsis was normal. A small type I hiatal hernia is present. No significant gastroesophageal reflux was seen during the course of the examination and on reflux views. Dual contrast and single contrast images of the stomach demonstrated a normal contour. Evaluation of the gastric mucosa is limited due to underdistention of the stomach from poor tolerance of the effervescent granules. The gastric rugal folds have a thickened appearance, suggestive of gastritis, however, this may be also be due to underdistention of the stomach. No masses are seen. Contrast freely passed into the gastric antrum and duodenal bulb without delay. Single and air-contrast images of the duodenal bulb demonstrate no abnormality. The duodenal sweep has a normal appearance, course, and mucosal fold appearance. The imaged proximal jejunum has a normal fold pattern and caliber. FLUOROSCOPY TIME: 4 minutes 3 seconds Number of Spot Images: 12 Number of Cine: 13 DOSE AREA PRODUCT: 2605 uGy-m2 (microgray-meter squared) FL/FL barium swallow IMPRESSION: 1. Small type I hiatal hernia. 2. Limited evaluation of the gastric mucosa due to underdistention of the stomach from poor tolerance of effervescent granules. No masses are seen. See above. This procedure was performed by Perfecot Babb PA-C, and supervised by Dr. Ruiz Electronically signed by: Carter Ruiz MD 09/30/2024 04:33 PM [facility] Workstation: [id number]
--- OUTSIDE RECORDS SUMMARY | 2024-09-30 08:41 | XMS_ITS | Continuity of Care Document ---
Author Organization [facility] Address [address] [facility], [address] d Floor, [address] [place] [id number]- Care Team Providers Care Sonar Watchstander Name Role Phone James LALA, Diann Primary Care Physician [phone] [id number] Date[facility]s): 08/06/24 - 09/05/24 [facility] [address] [place] [address] [address]rd Floor, [address] [place] [id number] Encounter Type: Triage Allergies, Adverse Reactions, Alerts No Known Allergies Medications Amoxicillin By Mouth, Maintenance, DENTAL INFECTION, 03/21/19 6:36:55 PM EDT Start Date: 03/21/19 Status: Ordered Repeat number: 1 Atenolol By Mouth, Daily, 0 Refills, Maintenance, 07/30/22 11:17:00 AM EDT, Partial fill upon patient request if the prescription is for a schedule II opioid drug. Start Date: 07/30/22 Status: Ordered Repeat number: 1 Ativan 1 mg oral tablet 1 tablet = 1 mg, By Mouth, 3 times a day, PRN Pain , Moderate, # 3 tablet, 0 Refills, Maintenance, 07/15/12 3:28:10 PM EDT Start Date: 07/15/12 Stop Date: 07/16/12 Status: Ordered Quantity: 3.0 Unit: tablet Repeat number: 1 Ativan 1 mg oral tablet 1 tablet = 1 mg, By Mouth, 3 times a day, PRN for anxiety, # 12 tablet, 0 Refills, Maintenance, 10/09/11 9:24:29 PM EST, Tablet Start Date: 10/09/11 Status: Ordered Quantity: 12.0 Unit: tablet Repeat number: 1 Golytely - oral powder for reconstitution 2 L, By Mouth, 2 times a day, # 4 L, 0 Refills, Maintenance, 06/02/19 4:41:22 PM EDT Start Date: 06/02/19 Status: Ordered Quantity: 4.0 Unit: l Repeat number: 1 lidocaine 4% mucous membrane solution See Instructions, apply small amount to ulcer three times daily, # 1 each, 0 Refills, Maintenance, 01/06/20 6:10:00 PM EDT, [id number], apply small amount to ulcer three times daily, 180, cm, 01/06/20 17:50:00 EDT, Height, 108.5, kg, 01/06/20 17:56:00 EDT, Dry Weight Start Date: 01/06/20 Status: Ordered Quantity: 1.0 Unit: each Repeat number: 1 Suboxone 8 mg-2 mg sublingual film 2.5, Sublingual, Daily, 0 Refills, Maintenance, 06/17/12 3:09:49 PM EDT Start Date: 06/17/12 Status: Ordered Repeat number: 1 Problem List Condition Confirmation Course Effective Dates Status Health St [facility]us Informant Obese class I Confirmed Active Social History Social History Type Response Smoking Status Former smoker entered on: 03/14/15 Sex Sex Representation Male (finding) Patient Care team information Care Team Personnel Name: Diann Ramirez MD Position: [facility] Outreach Member Role: PCP Address: [address] [place] [address] Telecom: Care Team Related Persons Name: SHRAVAN CORBIN Name: JEF CORBIN Insurance Providers Guarantor name: EDUARDO Health Plan Information #: 1 Payer: [employer] Member Number: NA Policy Number: NA Group Number: NA
--- OUTSIDE RECORDS SUMMARY | 2024-09-30 08:41 | XMS_ITS | Continuity of Care Document ---
Author Name [facility] Care Team Providers Care Software Qa Manager Name Role Phone [facility]placed by [facility] Unavailable Unavailable Diagnostic Reports Report Value Date Source XR ABDOMEN 2 VIEWS [facility] [address] [place] [address] ---------NAME--------- NUMBER SEX AGE ADMIT DISC. XRAY# F/C TYPE EMERALD ROMERO [id number] M 38 05/17/19 [id number] E/R DATE OF : 1980 M/R# [id number] PH#: RM LOCATION: TRANSCRIBED: 05/17/19 15:42 XR ABDOMEN 2 VIEWS 47031 COMPLETED: [id number] Constipation PHYSICIAN: VIRGILIO CARR R A D I O L O G Y R E P O R T EXAM: XR Abdomen, 2 Views EXAM DATE/TIME: 05/17/2019 1:18 PM CLINICAL HISTORY: 38 years old, male; Constipation TECHNIQUE: Imaging protocol: Frontal view of the abdomen/pelvis with upright view of the abdomen. COMPARISON: No relevant prior studies available. FINDINGS: Gastrointestinal tract: Normal. Ascending colon contains stool. No bowel dilation. Intraperitoneal space: Normal. No free air. Bones/joints: Unremarkable for age. IMPRESSION: No acute findings. Retained stool in the ascending colon THIS DOCUMENT HAS BEEN ELECTRONICALLY SIGNED BY MARIA R INFANTE MD on 05/17/2019 13:41:46; [id number] Electronically Signed By: JOSE M HUTCHISON Date/Time: SIGNDATE 05/18/2019 [facility] CT ABDOMEN PELVIS WO CON [facility] [address] [place] [address] ---------NAME--------- NUMBER SEX AGE ADMIT DISC. XRAY# F/C TYPE STOPA NICK [id number] M 38 05/17/19 [id number] E/R DATE OF : 1980 M/R# [id number] PH#: RM LOCATION: TRANSCRIBED: 05/17/19 16:21 CT ABDOMEN PELVIS [facility] [address] COMPLETED: 75888 Abdominal Pain PHYSICIAN: VIRGILIO BRUNO R A D I O L O G Y R E P O R T EXAM: CT Abdomen and Pelvis Without Contrast EXAM DATE/TIME: 05/17/2019 2:09 PM CLINICAL HISTORY: 38 years old, male; Abdominal pain TECHNIQUE: Imaging protocol: Axial computed tomography images of the abdomen and pelvis without contrast. Coronal and sagittal reformatted images were created and reviewed. Radiation optimization: All CT scans at this facility use at least one of these dose optimization techniques: automated exposure control; mA and/or kV adjustment per patient size (includes targeted exams where dose is matched to clinical indication); or iterative reconstruction.TECHNIQUE MORE: CT Radiation Dose: DLP = 1534.15 mGy-cm COMPARISON: No relevant prior studies available. FINDINGS: Liver: Normal. No mass. Gallbladder and bile ducts: The gallbladder is decompressed. Pancreas: Normal. No ductal dilation. Spleen: Normal. No splenomegaly. Adrenals: Normal. No mass. Kidneys and ureters: Normal. No hydronephrosis. Stomach and bowel: There is a moderate amount of stool within the ascending and transverse colon. There is no stool in the descending or sigmoid colon. Appendix: No evidence of appendicitis. Intraperitoneal space: Normal. No free air. No significant fluid collection. Vasculature: Normal. No abdominal aortic aneurysm. Lymph nodes: Normal. No enlarged lymph nodes. Bladder: Unremarkable as visualized. Reproductive: Unremarkable as visualized. Bones/joints: There is moderate disc degeneration at L5-S1. Soft tissues: Unremarkable. IMPRESSION: 1. No evidence of acute intra-abdominal pathology. 2. Moderate disc degeneration at L5-S1. THIS DOCUMENT HAS BEEN ELECTRONICALLY SIGNED BY JERE SOTO MD on 05/17/2019 14:20:41; [id number] Electronically Signed By: DCTNAME, RADCRED Date/Time: SIGNDATE 05/18/2019 [facility]
--- OUTSIDE RECORDS SUMMARY | 2024-09-30 08:41 | XMS_ITS | Continuity of Care Document ---
Author Organization [facility] Address [address] [facility], [address] d Floor, [address] [place] [id number]- Care Team Providers Care Cabin Worker Name Role Phone James LALA, Diann Primary Care Physician [id number] Date[facility]s): 08/06[facility]24 - 09/05/24 [facility] [address] [place] [address] [address] Floor, [address] [place] [address] Encounter Type: Triage Allergies, Adverse Reactions, [...] 0 Refills, Maintenance, 01/06/20 6:10:00 PM EDT, [id number], apply small amount to ulcer three times [...] Team Personnel Name: Diann Ramirez MD Position: [facility] Outreach Member Role: PCP Address: [address] [place] [address] Telecom: Care Team Related Persons Name: SHRAVAN CORBIN Name: JEF CORBIN Insurance Providers Guarantor name: EDUARDO Health Plan Information #: 1 Payer: [employer] Member Number: NA Policy Number: NA Group Number: NA
== END 2024-09-30 08:32 | disposition home or self-care (01) ==
LOC: HO.XRAY 08:31
PROVIDERS: PCP Internal Medicine; Visit Provider Internal Medicine
DX: R13.14 Dysphagia, pharyngoesophageal phase (principal)
CPT/HCPCS: 74220

== ENCOUNTER → 2024-09-30 08:33 | Outpatient (BNV) | payer MEDICAID, SELFPAY | PROVIDERS: PCP Internal Medicine; Visit Provider Physician Assistant Surgical | DX: R13.10 Dysphagia, unspecified (principal) | CPT/HCPCS: 74246 ==

== ENCOUNTER 2024-11-11 09:48 | Emergency (ER) | payer MEDICAID, SELFPAY ==
--- NOTE | ~2024-11-11 | XR_ITS ---
Examination: Left tibia and fibula. 2 views. CLINICAL INDICATION: Fall, leg pain. COMPARISON: None. FINDINGS: There is a distal fibular oblique fracture. Rest of the fibula and the tibia is normal. Mild lateral malleolar soft tissue swelling. XR/XR tibia fibula LT 2V IMPRESSION: Distal fibular oblique fracture. Electronically signed by: Livan Swenson MD 11/11/2024 11:29 AM EST
--- NOTE | ~2024-11-11 | XR_ITS ---
EXAMINATION: XR ANKLE, LEFT CLINICAL INFORMATION: fall, left leg pain COMPARISON: None available. TECHNIQUE: AP, lateral, and mortise views of the left ankle. FINDINGS: There is distal fibular oblique fracture with mild displacement and moderate lateral malleolus soft tissue swelling there is mild medial malleolus or fracture as well. The ankle mortise and subtalar joints are normal. The distal tibia is intact. XR/XR ankle LT min 3V IMPRESSION: Distal fibular oblique fracture with mild displacement and moderate lateral malleolus soft tissue swelling. There is mild medial malleolar fracture as well. Electronically signed by: Livan Swenson MD 11/11/2024 11:29 AM [facility]
[2024-11-11 10:11] VITALS: BP 96/72; PULSE 61; RESP 18; TEMP 36.4; O2SAT 99; BMI 26.6
--- NOTE | 2024-11-11 11:54 | ED_ITS ---
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 Patient states that he slipped on ice this morning and injured his left ankle / lower leg. Patient states that he feels as though his left foot is dangling . Patient denies any head strike with the incident, loss of consciousness with the incident, dizziness, lightheadedness, abdominal pain, nausea, vomiting, fever, chills, blurry vision, double vision, loss of vision, chest pain, difficulty breathing, shortness of breath, back pain, night sweats, pain with urination, increased urinary frequency, increased urinary urgency, blood in his urine or stool, syncope or a near syncopal episode, bowel incontinence, bladder incontinence, or any other complaints at this time. Location: left and lower extremity Relieving factors: immobilization Exacerbating factors: movement Associated symptoms: denies other symptoms Treatments prior to arrival: none Related Data Home Medications ?Medication ?Instructions ?Recorded ?Confirmed atenolol 25 mg tablet 25 mg PO DAILY 04/08/24 08/10/24 buprenorphine 8 mg-naloxone 2 mg 2 film sublingual DAILY 04/08/24 08/10/24 sublingual film (Suboxone) ergocalciferol (vitamin D2) 1,250 1,250 mcg PO QWEEK 04/08/24 08/10/24 mcg (50,000 unit) capsule hydroxyzine pamoate 50 mg capsule 50 mg PO TID 04/08/24 08/10/24 lorazepam 1 mg tablet 1 mg PO QID PRN prn 04/08/24 08/10/24 Previous Rx's ?Medication ?Instructions ?Recorded cefuroxime axetil 500 mg tablet 500 mg PO BID 7 days #14 tabs 10/24/22 amoxicillin 875 mg-potassium 1 tab PO BID 10 days #20 tabs 11/11/24 clavulanate 125 mg tablet Allergies Allergy/AdvReac Type Severity Reaction Status Date / Time No Known Allergies Allergy Verified 11/11/24 10:13 Review of Systems 2 Constitutional: Constitutional: Reports no additional constitutional complaints, Denies chills, Denies fever(s) and Denies night sweats Eyes: Eyes: Reports no additional eye complaints, Denies blurry vision, Denies change in vision, Denies diplopia, Denies eye discharge, Denies loss of vision and Denies eye pain ENT: Denies dizziness Cardiovascular: Cardiovascular: Reports no additional cardiovascular complaints, Denies chest pain, Denies lightheadedness, Denies Loss of Consciousness and Denies dyspnea Respiratory: Respiratory: Reports no additional respiratory complaints and Denies dyspnea Gastrointestinal: Gastrointestinal: Reports no additional gastrointestinal complaints, Denies abdominal pain, Denies melena, Denies hematochezia, Denies change in bowel habits and Denies change in stool character Genitourinary: Genitourinary: Reports no additional male genitourinary complaints, Denies hematuria, Denies oliguria, Denies difficulty urinating, Denies dysuria, Denies urinary frequency, Denies urinary hesitancy, Denies urinary incontinence and Denies urinary urgency Musculoskeletal: Musculoskeletal: Reports no additional musculoskeletal complaints, Denies numbness and Denies tingling Comments: left lower leg pain / swelling Neurologic: Denies dizziness, Denies loss of vision, Denies numbness and Denies tingling Psychiatric: Psychiatric: Reports no additional psychiatric complaints Endocrine: Endocrine: Reports no additional endocrine complaints Hematologic/Lymphatic: Hematologic/Lymphatic: Reports no additional hematologic/lymphatic complaints Allergic/Immunologic: Allergic/Immunologic: Reports no additional allergic/immunologic complaints FOR[facility], [facility] Past Medical History Attestation statement: The following information was validated with the patient. Source: old records reviewed and nursing notes reviewed Medical History Anxiety Hypertension Social History Social History Household Members: Other Alcohol intake: former Patient Tobacco Use Status: Never used Tobacco Substance Use Type: Opiates Advance Directives: No Advance Directives Information Provided: Yes Do you have a plan to hurt others: No Plan service: No Current occupational status: previously employed Gender identity: Male Physical Exam ED Vital Signs: Vital Signs - 24 hr 11/11/24 10:11 Temperature 97.6 F Pulse Rate 61 Respiratory Rate 18 Blood Pressure 96/72 Pulse Oximetry 99 Oxygen Delivery Method Room Air BMI result Body Mass Index 26.6 Const General: cooperative, no acute distress, alert and awake Nutritional Appearance: well nourished Orientation/consciousness: patient oriented x3 Limitations: no limitations HENMT Head: Yes normal to inspection and Yes atraumatic Ears: hearing grossly normal bilaterally and external ears normal General nose exam: Normal external nose present, no nasal discharge noted and no epistaxis Face and sinus: Yes normal facial exam, No abrasion and No laceration Mouth: Normal oral and palatal mucosa present, no drooling and no muffled voice Eyes General: appearance normal, both eyes and all related structures Periorbital: periorbital findings normal Eyelids: Yes eyelids normal Conjunctivae: conjunctivae normal Pupils: Equal, round and reactive pupils present EOM: EOMs intact bilaterally Neck Neck: Yes normal visual inspection, Yes full ROM and Yes no lymphadenopathy Chest Chest palpation & inspection: normal inspection of the chest Resp Effort & Inspection: normal respiratory effort and able to speak in complete sentences GI Inspection: Yes normal to inspection Neuro General: patient oriented x3 and moves all extremities Cranial nerves: Yes Equal, round and reactive pupils present Cognition (Neuro): normal cognition Extrem Other: General: Yes capillary refill normal Left lower extremity: lower leg (+rebolledo test) Psych Appearance: grossly normal Mental Status: mental status grossly normal Affect: normal affect Attitude: cooperative Thought process: Normal thought process present Thought content: Normal thought content present Insight: Good insight present (Psych) Medications Administered Discontinued Medications Generic Name Dose Route Start Last Admin Trade Name Freq PRN Reason Stop Dose Admin Ketorolac Tromethamine 15 mg 11/11/24 12:09 11/11/24 12:26 Ketorolac Tromethamine 15 Mg/Ml Vial IM 11/11/24 12:10 15 mg ONCE ONE Administration Procedures Orthopedic Splinting/Casting Injury #1: Side: left Lower Extremity Injury Location: lower leg and ankle Lower Extremity Immobilizer: posterior splint Other Orthopedic Equipment: crutches Medical Decision Making Medical Decision Making MDM Narrative: Patient is a 44 year old assigned male at with a history of opiate use / abuse (not IV) on Suboxone, anxiety, and HTN, presenting to the emergency department today with left lower leg / ankle pain. Patient's physical exam was as noted in the physical examination portion of this note. Patient's left lower leg had a superficial abrasion present - likely secondary to the trauma of the fall but not the ankle fracture. Patient had a positive rebolledo test of the left lower leg concerning for an achilles tendon injury. Patient's left tib/fib x-ray showed a distal fibular oblique fracture. Patient's left ankle x-ray showed a fibular fracture with medial mallelous swelling. The radiologist suggests there may be a medial mallelous fracture but I do not appreciate this on personal examination of the x-ray images. I spoke to the orthopedic team who recommended a posterior short leg splint with minimal plantar flexion and close outpatient follow up. I explained my physical exam findings as well as all test results to the patient. I answered all questions asked by the patient. Patient's left lower leg was placed in a posterior short leg splint, without incident. Patient's PMS was intact prior to and after splint placement. Patient was given crutches and crutch instructions. I stressed the importance of the patient taking his medication as directed (either prescribed or as the over the counter packaging recommends). I stressed the importance of the patient following up with his primary care provider and an orthopedic provider. I stressed the importance of the patient returning to the emergency department immediately if his symptoms were to worsen or if he were to develop any dizziness, shortness of breath, difficulty breathing, chest pain, blurry vision, loss of vision, nausea, vomiting, abdominal pain, fever, chills, back pain, or any other complaints. Patient verbalized agreement and understanding with this treatment plan and discharge. Differential Diagnosis Differential Diagnoses: The differential diagnosis associated with the presentation includes Fibular fracture Ankle fracture Abrasion Achilles tendon injury Admission/Observation Consideration of admission/observation: Escalation of care including admission/observation considered Patient would have been admitted to the hospital had his work up had any findings where hospital admission was appropriate and his clinical presentation warranted hospital admission. Consult Healthcare Provider Management of the patient was discussed with: Road Engineer [employer] (spoke to the orthopedic team as noted in the MDM Rationale portion of this note.) Independent Interpretation I performed an independent interpretation of an: Plain X-Ray Interpretation: My interpretation is in agreement with the radiologist's impression of these imaging studies with exceptions noted in the MDM Rationale portion of this note. L Examination: Left tibia and fibula. 2 views. CLINICAL INDICATION: Fall, leg pain. COMPARISON: None. FINDINGS: There is a distal fibular oblique fracture. Rest of the fibula and the tibia is normal. Mild lateral malleolar soft tissue swelling. XR/XR tibia fibula LT 2V IMPRESSION: Distal fibular oblique fracture. Electronically signed by: Livan Swenson MD 11/11/2024 11:29 AM EST RP Dictated By: Livan Swenson MD Signed By: Electronically signed by Livan Swenson MD 11/11/24 1129 EXAMINATION: XR ANKLE, LEFT CLINICAL INFORMATION: fall, left leg pain COMPARISON: None available. TECHNIQUE: AP, lateral, and mortise views of the left ankle. FINDINGS: There is distal fibular oblique fracture with mild displacement and moderate lateral malleolus soft tissue swelling there is mild medial malleolus or fracture as well. The ankle mortise and subtalar joints are normal. The distal tibia is intact. XR/XR ankle LT min 3V IMPRESSION: Distal fibular oblique fracture with mild displacement and moderate lateral malleolus soft tissue swelling. There is mild medial malleolar fracture as well. Electronically signed by: Livan Swenson MD 11/11/2024 11:29 AM EST RP Dictated By: Livan Swenson MD Signed By: Electronically signed by Livan Swenson MD 11/11/24 1129 Radiology Impression Discussion of test interpretation with radiology: I have reviewed the radiologist's reading. Critical Care Time Critical Care Time Critical Care Time: Yes Total Critical Care Time: 38 Attestation: I spent 38 minutes of Critical Care Time with this patient. This does not include time spent on separately reported billable procedures. Discharge Plan Discharge Clinical Impression: Ankle fracture, Achilles tendon injury Patient Disposition: Home, Self-Care Instructions: Ankle Fracture (DC), Crutch Instructions (ED), Achilles Tendon Rupture (ED) Additional Instructions: Do NOT get the splint wet. Do NOT remove the splint. If the sensation in your left toes changes, the color changes, or your ability to move them as you can now changes - you may loosen the outer GEOFFREY wraps of your splint. If you find yourself loosening the GEOFFREY wraps to the point where you can see the splint material underneath - STOP and return to the ER immediately. Whenever you are stationary - elevate your left lower extremity Do NOT bear weight on your left lower extremity. Follow up with your primary care provider and an orthopedic provider. Return to the emergency department immediately if your symptoms worsen or if you develop any dizziness, shortness of breath, difficulty breathing, chest pain, blurry vision, loss of vision, nausea, vomiting, abdominal pain, fever, chills, back pain, or any other complaints. Prescriptions: New amoxicillin-pot clavulanate 875-125 mg tablet 1 tab PO BID 10 Days Qty: 20 0RF No Action cefuroxime axetil 500 mg tablet 500 mg PO BID 7 Days Qty: 14 0RF atenolol 25 mg tablet 25 mg PO DAILY hydroxyzine pamoate 50 mg capsule 50 mg PO TID ergocalciferol (vitamin D2) 1,250 mcg (50,000 unit) capsule 1,250 mcg PO QWEEK lorazepam 1 mg tablet 1 mg PO QID PRN (Reason: prn) buprenorphine-naloxone [Suboxone] 8-2 mg film 2 film sublingual DAILY [place]: [facility] [place] [facility] [place]Provider Group] (Call to establish and follow up with an orthopedic provider.) Diann Ramirez MD [Primary Care Provider] - Stand Alone Forms: Work/School Release Print Language: Luxembourgish
[2024-11-11] MEDS: Ketorolac Tromethamine 15 MG/ML VIAL IM (12:26)
[2024-11-11 14:47] VITALS: BP 96/72; PULSE 61; RESP 18; TEMP 36.4; O2SAT 99
== END 2024-11-11 14:48 | disposition home or self-care (01) ==
PROVIDERS: Emergency Provider Emergency Medicine; PCP Internal Medicine
DX: S86.002A Unspecified injury of left Achilles tendon, initial encounter (principal); W00.0XXA Fall on same level due to ice and snow, initial encounter; Y93.89 Activity, other specified; Y92.9 Unspecified place or not applicable; Y99.9 Unspecified external cause status; M79.605 Pain in left leg
CPT/HCPCS: 73590; 73610; 96372; 99283; 99284; J1885

== ENCOUNTER → 2024-11-11 10:45 | Outpatient (BNV) | payer MEDICAID, SELFPAY | PROVIDERS: Emergency Provider Emergency Medicine; PCP Internal Medicine; Visit Provider Radiology Diagnostic Radiology | DX: S82.892A Other fracture of left lower leg, initial encounter for closed fracture (principal) | CPT/HCPCS: 73590; 73610 ==

== ENCOUNTER 2024-11-13 11:14 | Emergency (ER) | payer MEDICAID, SELFPAY ==
[2024-11-13 11:22] VITALS: BP 160/100; PULSE 74; O2SAT 98
[2024-11-13 11:24] VITALS: BP 132/72; PULSE 68; RESP 16; TEMP 37; O2SAT 97; BMI 34.4
--- NOTE | 2024-11-13 11:37 | ED_ITS ---
HPI - Extremity Injury (Lower) General Chief Complaint: Extremity Injury, Lower Stated Complaint: FX LLE DAYS AGO HAS SWELLING/NUMBNESS PER EMS Time Seen by Provider: 11/13/24 11:20 Source: patient and EMS Mode of arrival: EMS Limitations: no limitations History of Present Illness ED Provider: Kim Wan NP HPI Narrative: Patient is a 44 year old male past medical history of opiate use disorder (not intravenous) on Suboxone, anxiety, hypertension presenting to emergency department for evaluation. Reports he was seen in the emergency department 11/11/2024 after mechanical slip and fall on the ice with subsequent fracture to his ankle. The ankle is splinted. He expresses concern that he is experiencing compartment syndrome, reports that as of this morning the leg was feeling significantly swollen, heavy, has decreased sensation, and increased pain. He took ibuprofen 800 mg prior to EMS arrival to his home. Upon EMS arrival he began self removing the splint, pulling down the Carlyle bandages to the level of the medial calf. Related Data Home Medications ?Medication ?Instructions ?Recorded ?Confirmed atenolol 25 mg tablet 25 mg PO DAILY 04/08/24 08/10/24 buprenorphine 8 mg-naloxone 2 mg 2 film sublingual DAILY 04/08/24 08/10/24 sublingual film (Suboxone) ergocalciferol (vitamin D2) 1,250 1,250 mcg PO QWEEK 04/08/24 08/10/24 mcg (50,000 unit) capsule hydroxyzine pamoate 50 mg capsule 50 mg PO TID 04/08/24 08/10/24 lorazepam 1 mg tablet 1 mg PO QID PRN prn 04/08/24 08/10/24 Previous Rx's ?Medication ?Instructions ?Recorded cefuroxime axetil 500 mg tablet 500 mg PO BID 7 days #14 tabs 10/24/22 amoxicillin 875 mg-potassium 1 tab PO BID 10 days #20 tabs 11/11/24 clavulanate 125 mg tablet ibuprofen 800 mg tablet 800 mg PO Q8H PRN pain #14 tabs 11/11/24 Allergies Allergy/AdvReac Type Severity Reaction Status Date / Time No Known Allergies Allergy Verified 11/13/24 11:27 Review of Systems Review of Systems: Yes all other systems are reviewed and are negative PMFSH Past Medical History Attestation statement: The following information was validated with the patient. Source: old records reviewed Medical History Anxiety Hypertension Social History Social History Household Members: Other Alcohol intake: former Patient Tobacco Use Status: Never used Tobacco Substance Use Type: Opiates Advance Directives: No Advance Directives Information Provided: Yes Do you have a plan to hurt others: No Plan service: No Current occupational status: previously employed Gender identity: Male Physical Exam Vital Signs: Vital Signs: Last Vital Signs Temp 98.6 F 11/13/24 12:57 Pulse 68 11/13/24 12:57 Resp 16 11/13/24 12:57 BP 132/72 11/13/24 12:57 Pulse Ox 97 11/13/24 12:57 BMI result Body Mass Index 34.4 Appearance: Alert.?Oriented to person, place and time. No acute dis tress.?Normal affect. CVS: Heart sounds normal. Normal heart rate and rhythm.? Pulses normal.?? Respiratory: No respiratory distress.? Lung sounds clear to auscultation bilaterally?? Skin: Skin warm and dry.? Normal skin color.? Extremities: Localized swelling to the left lower extremity primarily around the ankle. Not able to palpate DP/PT pulse however Doppler signal is present for both. Extensive ecchymosis along the medial malleolus extending down to the foot. No calf tenderness upon palpation. Compartments are soft. No pallor. No diminished sensation. Neuro: Moves all extremities spontaneously. Sensation intact bilaterally. Ambulates with crutches facilitating gait Course Reevaluation(s) Reevaluation #1: At the time of discharge, patient endorsed that he feels as though his crutches are too high. They were altered down to the lowest setting, however on review despite them being on the lowest setting when he is standing fully upright they are quite high in the axilla. He is endorsing discomfort to the bilateral axilla from this. He will be provided with a 2nd set of crutches at an appropriate height for him. Time: 13:17 Medical Decision Making Medical Decision Making MDM Narrative: Patient is a 44 year old male who presents emergency department for re- evaluation after recent fracture to the left lower extremity sustained from a mechanical slip and fall on 11/11/2024. On review of imaging, there is a distal fibular oblique fracture, initial examination with positive Isabel's test and concern for Achilles tendon injury as well. XR of the left ankle initially with radiologist impression of a mild medial malleolar fracture, however initial clinician did not appreciate this on review of XR imaging. I as well have reviewed the XR imaging I do not see where concern for medial malleolus fracture, there is however soft tissue swelling present. His current examination does not appear consistent with compartment syndrome. His biggest concern at this time after removal of the Carlyle bandage and padding material is that there is extensive ecchymosis to the medial malleolus. Which can be expected in the setting of his most recent injury. He has an appointment to be evaluated by orthopedics on 11/15/2024. The posterior leg splint was reapplied, remains neurovascularly intact distally after application. Feel he is appropriate for outpatient follow-up with orthopedics as scheduled. Discussed with him the importance of rest, elevation above the level of the chest. Differential Diagnosis Differential Diagnoses: The differential diagnosis associated with the presentation includes (See narrative above) Independent Historian Clinical information obtained from an independent historian. History obtained from or confirmed by: EMS External Record Review External record reviewed: Outpatient record Prescription Management I considered prescription management with: Pain Medication (Acetaminophen/ibuprofen) Procedures Orthopedic Splinting/Casting Injury #1: Lower Extremity Immobilizer: posterior splint Discharge Plan Discharge Clinical Impression: Ankle fracture Patient Disposition: Home, Self-Care Instructions: Ankle Fracture (ED), Crutch Instructions (ED), R.I.C.E. Treatment (ED) Additional Instructions: As discussed, it is very important to be certain that you are elevating your leg up above the level of your chest when you are resting. You should avoid prolonged sitting/standing/walking with the crutches as this will allow for increased swelling to the lower leg/ankle/foot. Be certain that you follow-up with orthopedics as scheduled on Friday. You may continue to apply ice over the top of the Carlyle bandage/splint 10-15 minutes 3-4 times daily, consider use of a large bag of ice. Prescriptions: No Action cefuroxime axetil 500 mg tablet 500 mg PO BID 7 Days Qty: 14 0RF amoxicillin-pot clavulanate 875-125 mg tablet 1 tab PO BID 10 Days Qty: 20 0RF ibuprofen 800 mg tablet 800 mg PO Q8H PRN (Reason: pain) Qty: 14 0RF atenolol 25 mg tablet 25 mg PO DAILY hydroxyzine pamoate 50 mg capsule 50 mg PO TID ergocalciferol (vitamin D2) 1,250 mcg (50,000 unit) capsule 1,250 mcg PO QWEEK lorazepam 1 mg tablet 1 mg PO QID PRN (Reason: prn) buprenorphine-naloxone [Suboxone] 8-2 mg film 2 film sublingual DAILY [place] [facility] [place] [facility] [place] Group] Interventions: ED Discharge Assessment Last Done: 11/13/24 12:57 Discharge Date/Time: 11/13/24 12:58 Print Language: Irish
--- OUTSIDE RECORDS SUMMARY | 2024-11-13 11:42 | XMS_ITS | Encounter Summary ---
Author Organization [employer] Address [address] [facility] 7 [place] [address] Care Team Providers Care Research Program Assistant Name Role Phone Diann Ramirez MD Primary Care Provider [phone] Reason for Visit * Reason Onset Date Comments Appointment Request 06/11/2024 Encounter Details Date Type Department Care Team ([facility] st Contact Info) Description 06/11/2024 Telephone [facility] [address] [place] [address] Diann Ramirez MD [address] [place] [address] Appointment Request Social History Tobacco Use Types Packs/Day Years Used Date Smoking Tobacco: Never Smokeless Tobacco: Never Depression Answer Date Recorded Patient Health Questionnaire-9 Score 4 03/20/2024 Patient Health Questionnaire-9 Score 4 03/20/2024 Last PHQ-9: Questionnaire Data Not on file 0 03/20/2024 Housing Stability Answer Date Recorded What is your housing situation today? I have vidhi shane 03/20/[address] you li ve. Do you have problems with any of the following? None of the above 03/20/2024 Food Insecurity Answer Date Recorded Within the past 12 months, y ou worried that your food would run out before you got money to buy more: Never True 03/20/2024 Within the past 12 months,th e food you bought just didn't last and you didn't have enough money to get more: Never True 10/2023 Transportation Answer Date Recorded In the past 12 months, has l ack of transportation kept you from medical appts, meetings, work or from getting things needed for daily living? No 03/20/2024 Utilities Answer Date Recorded In the past 12 months, has t he electric, gas, oil or water company threatened to shut off services in your home? No 03/20/2024 Depression Answer Date Recorded Patient Health Questionnaire-2 Score 1 03/20/2024 Sex and Gender Information Value Date Recorded Sex Assigned at Male 08/19/2022 10:22 AM EDT Legal Sex Male 10:22 AM EDT Gender Identity Male 08/19/2022 10:22 AM EDT Sexual Orientation Straight 08/19/2022 10 :22 AM EDT documented as of this encounter Miscellaneous Notes * Telephone Encounter - Shahriar Paez - 06/11/2024 9:52 AM EDT Tc from pt calling in regards to IMCU NURSE visit from 06/18 that was canceled and is requesting to reschedule. Please contact pt at [phone]. documented in this encounter Plan of Treatment Upcoming Encounters Date Type Department Care Team (Late st Contact Info) Description 11/15/2024 9:15 AM EST Office Visit [facility] [address] [place] [address] Diann Ramirez MD [address] [place] [address] 11/16/2024 3:45 PM EST Office Visit [facility] [address] [place] [address] Diann Ramirez MD [address] [place] [address] 12/20/2024 2:00 PM EST Telemedicine [facility] [address] [place] [address] Naomi Reyes RN [address] [place] [address] documented as of this encounter Visit Diagnoses Not on filedocumented in this encounter Additional Health Concerns Assessment Noted Time PHQ-9 Depression Total Score: 4 03/20/20 24 9:12 AM EDT documented as of this encounter Care Teams Research Program Assistant Relationship Specialty Start Date End Date Diann Ramirez MD [address] [place] [id number] PCP - General Internal Medicine 07/16/12 documented as of this encounter
--- OUTSIDE RECORDS SUMMARY | 2024-11-13 11:42 | XMS_ITS | Encounter Summary ---
Author Organization [employer] Address [address] [facility] 7 [place] [address] Care Team Providers Care Combustion Analyst Name Role Phone Diann Ramirez MD Primary Care Provider [phone] Reason for Visit * Reason Onset Date Comments Med Refill 11/25/2022 Encounter Details Date Type Department Care Team (Late st Contact Info) Description 11/25/2022 Telephone [facility] MEDICINE [address] [place] [address] Diann Ramirez MD [address] [place] [address] Med Refill Social History Tobacco Use Types Packs/Day Years Used Date Smoking Tobacco: Never Smokeless Tobacco: Never Depression Answer Date Recorded Patient Health Questionnaire-9 Score 1 10/31/2022 Depression Answer Date Recorded Patient Health Questionnaire-2 Score 0 10/31/2022 Sex and Gender Information Value Date Recorded Sex Assigned at Male 08/19/2022 10:22 AM EDT Legal Sex Male 10:22 AM EDT Gender Identity Male 08/19/2022 10:22 AM EDT Sexual Orientation Straight 08/19/2022 10 :22 AM EDT COVID-19 Exposure Response Date Recorded In the last 10 days, have yo u been in contact with someone who was confirmed or suspected to have Coronavirus/COVID-19? No / Unsure 10/31/2022 3:48 PM EST documented as of this encounter Miscellaneous Notes * Telephone Encounter - Mario Saldivar - 11/25/2022 10:05 AM EST Tc from pt requesting med refill Lorazepam 1 mg documented in this encounter Plan of Treatment Upcoming Encounters Date Type Department Care Team (Late st Contact Info) Description 11/15/2024 9:15 AM EST Office Visit [facility] [address] [place] [address] Diann Ramirez MD [address] [place] [address] 11/16/2024 3:45 PM EST Office Visit [facility] [address] [place] [address] Diann Ramirez MD [address] [place] [address] 12/20/2024 2:00 PM EST Telemedicine [facility] [address] [place] [address] Naomi Reyes, TABATHA [address] [place] [address] documented as of this encounter Visit Diagnoses Not on filedocumented in this encounter Additional Health Concerns Assessment Noted Time PHQ-9 Depression Total Score: 1 10/31/19 23 3:59 PM EST documented as of this encounter Care Teams Combustion Analyst Relationship Specialty Start Date End Date Diann Ramirez MD [address] [place] [address] PCP - General Internal Medicine 07/16/12 documented as of this encounter
--- OUTSIDE RECORDS SUMMARY | 2024-11-13 11:42 | XMS_ITS | Encounter Summary ---
Author Organization [employer] Address [address] [facility] 7 [place] [address] Care Team Providers Care Telemetry Registered Nurse Name Role Phone Diann Ramirez MD Primary Care Provider [phone] Reason for Visit * Reason Onset Date Comments Appointment Request 08/04/2024 Encounter Details Date Type Department Care Team ([facility] st Contact Info) Description 08/04/2024 Telephone [facility] MEDICINE [address] [place] [address] Diann Ramirez MD [address] [place] [address] Appointment Request Social History Tobacco Use Types [...] encounter Miscellaneous Notes * Telephone Encounter - Juan King - 08/04/2024 2:04 PM EDT Tc from pt requesting to r/s ALMOND HULLER RN appt scheduled for today, appt has been cancelled. Please contact at [phone] documented in this encounter Plan of Treatment Upcoming Encounters Date Type Department Care Team (Late st Contact Info) Description 11/15/2024 9:15 AM EST Office Visit [facility] [address] [place] [address] Diann Ramirez MD [address] [place] [address] 11/16/2024 3:45 PM EST Office Visit [facility] [address] [place] [address] Diann Ramirez MD [address] [place] [address] 12/20/2024 2:00 PM EST Telemedicine [facility] [address] [place] [address] Naomi Reyes RN [address] [place] [address] documented as of this encounter Visit Diagnoses Not on filedocumented in this encounter Additional Health Concerns Assessment Noted Time PHQ-9 Depression Total Score: 4 03/20/20 24 9:12 AM EDT documented as of this encounter Care Teams Telemetry Registered Nurse Relationship Specialty Start Date End Date Diann Ramirez MD [address] [place] [address] PCP - General Internal Medicine 07/16/12 documented as of this encounter
--- OUTSIDE RECORDS SUMMARY | 2024-11-13 11:42 | XMS_ITS | Encounter Summary ---
Author Organization [employer] Address [address] [facility] 7 [place] [address] Care Team Providers Care Semiconductor Processing Group Leader Name Role Phone Diann Ramirez MD Primary Care Provider [phone] Reason for Visit * Reason Onset Date Comments Med Refill 09/02/2024 Encounter Details Date Type Department Care Team (Late st Contact Info) Description 09/02/2024 Telephone [facility] MEDICINE [address] [place] [address] Diann Ramirez MD [address] [place] [address] Med Refill Social History Tobacco Use Types [...] encounter Miscellaneous Notes * Telephone Encounter - Jw Valdez - 09/02/2024 10:33 AM EST TC from pt requesting medication refill. Medications needing refill : LORazepam (Ativan) 1 MG tablet To be sent to: [id number] - [place] - [address] [facility] [place] [place] [address] [facility] documented in this encounter Plan of Treatment Upcoming Encounters Date Type Department Care Team (Late st Contact Info) Description 11/15/2024 9:15 AM EST Office Visit [facility] [address] [place] [address] Diann Ramirez MD [address] [place] [address] 11/16/2024 3:45 PM EST Office Visit [facility] [address] [place] [address] Diann Ramirez MD [address] [place] [address] 12/20/2024 2:00 PM EST Telemedicine [facility] [address] [place] [address] Naomi Reyes, TABATHA [address] [place] [address] documented as of this encounter Visit Diagnoses Not on filedocumented in this encounter Additional Health Concerns Assessment Noted Time PHQ-9 Depression Total Score: 4 03/20/20 24 9:12 AM EDT documented as of this encounter Care Teams Semiconductor Processing Group Leader Relationship Specialty Start Date End Date Diann Ramirez MD [address] [place] [address] PCP - General Internal Medicine 07/16/12 documented as of this encounter
--- OUTSIDE RECORDS SUMMARY | 2024-11-13 11:42 | XMS_ITS | Encounter Summary ---
Author Organization [email or web address] Address [address] [place] [address] [address] [place] [address] Care Team Providers Care Marine Specialist Name Role Phone Diann Ramirez MD Primary Care Provider [phone] Reason for Referral * Consultation (Routine) - Closed Specialty Diagnoses / Procedures Referred By Dania blackman Referred To Contact Hematology and Oncology Diagnoses Microcytic anemia Bicytopenia Diann Ramirez MD [address] [place] [address] Phone: tel: fax: Cornell Culver MD [address] [place] [phone] Phone: tel: fax: Referral ID Status Reason Start Date Expiration Date V isits Requested Visits Authorized [id number] Closed Specialty Services Required 03/16/2024 03/16/2025 1 1 * Imaging (Routine) - Closed Specialty Diagnoses / Procedures Referred By Contcary t Referred To Contact Diagnoses Numbness of right foot Numbness of left foot Procedures EMG Diann Ramirez MD [address] [place] [address] Phone: tel: fax: [address] Phone: tel: fax: Referral ID Status Reason Start Date Expiration Date Visits Re quested Visits Authorized [id number] Closed 03/16/2024 03/16/2025 1 1 Encounter Details Date Type Department Care Team (Late Contact Info) Description 03/12/2024 Orders Only [facility] [address] [place] [address] Diann Ramirez MD [address] [place] [address] Microcytic anemia (Primary Dx); Vitamin D deficiency; Primary hypertension; Numbness of right foot; Numbness of left foot; Bicytopenia Social History Tobacco Use Types Packs/Day Years [...] AM EDT documented as of this encounter Plan of Treatment Upcoming Encounters Date Type Department Care Team (Late Contact Info) Description 11/15/2024 9:15 AM EST Office Visit [facility] [address] [place] [address] Diann Ramirez MD [address] [place] [address] 11/16/2024 3:45 PM EST Office Visit [facility] [address] [place] [address] Diann Ramirez MD [address] [place] [address] 12/20/2024 2:00 PM EST Telemedicine [facility] [address] [place] [address] Naomi Reyes RN [address] [place] [phone] Scheduled Orders Name Type Priority Associated Diagnoses Orde r Schedule EMG Neurology Routine Numbness of right foot Numbness of left foot Expected: 03/16/2024 (Approximate), Expires: 03/16/2025 Scheduled Referrals Name Type Priority Associated Diagnoses Order Schedule Referral to Hematology / Oncology Outpatient Referral Routine Microcytic anemia Bicytopenia Expected: 03/16/2024 (Approximate), Expires: 03/16/2025 documented as of this encounter Procedures Procedure Name Priority Date/Time Associated Diagnosis Comments CT HEAD WO CONTRAST Routine 03/24/2024 2 :23 PM EDT XR CHEST 2 VIEWS Routine 03/24/2024 2:00 PM EDT SLIDE REVIEW Routine 03/24/2024 12:15 PM EDT Microcytic anemia HIGH SENSITIVITY TROPONIN I Routine 03/24/2024 12:15 PM EDT Microcytic anemia TSH W/REFLEX TO FT4 Routine 03/24/2024 1 2:15 PM EDT Microcytic anemia TICK BORNE DISEASE BY PCR Routine 03/24/2024 12:15 PM EDT Microcytic anemia CBC WITH AUTO DIFFERENTIAL Routine 03/24/2024 12:15 PM EDT Microcytic anemia PROTHROMBIN TIME-INR Routine 03/24/2024 12:15 PM EDT Microcytic anemia MAGNESIUM Routine 03/24/2024 12:15 PM EDT Microcytic anemia FERRITIN Routine 03/24/2024 12:15 PM EDT Microcytic anemia COMPREHENSIVE METABOLIC PANEL Routine 03/24/2024 12:15 PM EDT Microcytic anemia IRON AND TOTAL IRON BINDING CAPACITY Routine 03/16/2024 11:56 AM EDT Microcytic anemia RETICULOCYTE COUNT Routine 03/16/2024 11 :56 AM EDT Microcytic anemia FERRITIN Routine 03/16/2024 11:56 AM EDT Microcytic anemia documented in this encounter Results * CT Head w/o Contrast (03/24/2024 2:23 PM EDT) Anatomical Region Laterality Modality Head, Neck Computed Tomogra phy 03/24/2024 2:23 PM EDT Narrative 03/24/2024 3:35 PM EDT ? [facility] ?[address] ?[place] [address] ? CT Scan Report ? Signed ? Patient: Luc Erickson ?MR#: [id number] ?? 78 ? : 1980 ?Acct:[id number] ? Age/Sex: 43 / M ?ADM Date: 03/24/24 ? Loc: HO.ED ? Attending Dr: ? Ordering Physician: Phani Gamino DO ?? Date of Service: 03/24/24 ?? Procedure(s): CT head/brain wo IV con ?? Accession Number(s): [id number] ? cc: Diann Ramirez MD; Phani Gamino DO ? EXAMINATION: ?? CT HEAD WITHOUT CONTRAST ? CLINICAL INFORMATION: ?? Headache ? COMPARISON: ?? None. ? TECHNIQUE: ?? Contiguous axial imaging was performed from the skull base to vertex ?? without intravenous administration of contrast. ?? Coronal and sagittal reformatted images are performed at the CT ?? scanner. ? [This CT examination was performed using dose optimization techniques ?? as appropriate, variously including the following: ? *Automated exposure control ? *Adjustment of mA and/or kV according to patient size (this includes ?? techniques or standardized protocols for targeted exams where dose is ?? matched to indication/reason for exam; i.e. extremities or head) ? *Use of iterative reconstruction technique] ? DLP: ?? 673 mGy-cm. ? FINDINGS: ?? There is no evidence of acute intracranial hemorrhage or territorial ?? infarction. No abnormal mass-effect or midline shift is seen. Allen to ?? white matter differentiation is well preserved. ?? No extra-axial fluid collections are identified. ?? The ventricles are normal in size. There is no abnormal attenuation ?? within the brain parenchyma. ?? There is no osseous abnormality. ?? The mastoid air cells and visualized portions of the paranasal sinuses ?? are well-aerated. ? CT/CT head/brain wo IV con ?? IMPRESSION: ?? No acute intracranial pathology. ? Dictated By: ?Hiram Nevarez MD ? Signed By: ?<Electronically signed by Hiram Nevarez MD in OV> ?03/24/24 1531 ? DD/ 1423 ? TD/TT: ? Marketing Underwriter: BA ? Procedure Note Donoracioter, Image - 03/24/[address] [place] [address] [address] Scan Report Signed Patient: Luc Erickson JMR#: [id number] [birth year] : 1980Acct:[id number] Age/Sex: 43 / MADM Date: 03/24/24 Loc: HO.ED Attending Dr: Ordering Physician: Phani Gamino DO Date of Service: 03/24/24 Procedure(s): CT head/brain wo IV con Accession Number(s): [id number] cc: Diann Ramirez MD; Phani Gamino DO EXAMINATION: CT HEAD WITHOUT CONTRAST CLINICAL INFORMATION: Headache COMPARISON: None. TECHNIQUE: Contiguous axial imaging was performed from the skull base to vertex without intravenous administration of contrast. Coronal and sagittal reformatted images are performed at the CT scanner. [This CT examination was performed using dose optimization techniques as appropriate, variously including the following: *Automated exposure control *Adjustment of mA and/or kV according to patient size (this includes techniques or standardized protocols for targeted exams where dose is matched to indication/reason for exam; i.e. extremities or head) *Use of iterative reconstruction technique] DLP: 673 mGy-cm. FINDINGS: There is no evidence of acute intracranial hemorrhage or territorial infarction. No abnormal mass-effect or midline shift is seen. Allen to white matter differentiation is well preserved. No extra-axial fluid collections are identified. The ventricles are normal in size. There is no abnormal attenuation within the brain parenchyma. There is no osseous abnormality. The mastoid air cells and visualized portions of the paranasal sinuses are well-aerated. CT/CT head/brain wo IV con IMPRESSION: No acute intracranial pathology. Dictated By: Hiram Nevarez MD Signed By: <Electronically signed by Hiram Nevarez MD in OV> 03/24/24 1531 DD/ 1423 TD/TT: Marketing Underwriter: CARMEN [facility] External Provider IMG CT PROCEDURES Final Result * XR Chest 2 Views (03/24/2024 2:00 PM EDT) Anatomical Region Laterality Modality Chest Radiographic Lacey ging 03/24/2024 2:00 PM EDT Narrative 03/24/2024 3:11 PM EDT ? [facility] ?[address] ?[place] [address] ?XRay Report ? Signed ? Patient: Stopa,Luc J ?MR#: [id number] ?? 78 ? : 1980 ?Acct:[id number] ? Age/Sex: 43 / M ?ADM Date: 03/24/24 ? Loc: HO.ED ? Attending Dr: ? Ordering Physician: Phani Gamino DO ?? Date of Service: 03/24/24 ?? Procedure(s): XR chest 2V ?? Accession Number(s): [id number] ? cc: Diann Ramirez MD; Phani Gamino DO ? EXAMINATION: ?? XR CHEST ? CLINICAL INFORMATION: ?? Weakness. ? COMPARISON: ?? Chest radiograph 10/24/2022. ? TECHNIQUE: ?? 2 views of the chest were obtained. ? FINDINGS: ?? Normal appearance of the cardiomediastinal silhouette. No focal ?? airspace opacities, pleural effusion or pneumothorax. ? No acute osseous findings. Visualized upper abdomen is within normal ?? limits. ? XR/XR chest 2V ?? IMPRESSION: ?? No acute cardiopulmonary findings. ? Dictated By: ?Dager,Marisabel ? Signed By: ?<Electronically signed by Marisabel ??Dager in OV> ? 03/24/24 1507 ? DD/ 1400 ? TD/TT: ? Marketing Underwriter: ? Procedure Note Donotuseinterpreter, Image - 03/24/[address] [address] XRay Report Signed Patient: Luc Erickson JMR#: [id number] 78 : 1980Acct:[id number] Age/Sex: 43 / MADM Date: 03/24/24 Loc: HO.ED Attending Dr: Ordering Physician: Phani Gamino DO Date of Service: 03/24/24 Procedure(s): XR chest 2V Accession Number(s): [id number] cc: Diann Ramirez MD; Phani Gamino DO EXAMINATION: XR CHEST CLINICAL INFORMATION: Weakness. COMPARISON: Chest radiograph 10/24/2022. TECHNIQUE: 2 views of the chest were obtained. FINDINGS: Normal appearance of the cardiomediastinal silhouette. No focal airspace opacities, pleural effusion or pneumothorax. No acute osseous findings. Visualized upper abdomen is within normal limits. XR/XR chest 2V IMPRESSION: No acute cardiopulmonary findings. Dictated By: Marisabel Herr Signed By: <Electronically signed by Marisabel Herr in OV> 03/24/24 1507 DD/ 1400 TD/TT: Marketing Underwriter: [facility] External Provider IMG XR PROCEDURES Final Result * Tick-borne Disease, Acute Molecular Panel (03/24/2024 12:15 PM EDT) Babesia microti DNA, Real Time PCR NOT DETECTED NOT DETECTED [facility] Comment:This test was develo ped and its analytical performancecharacteristics have been determined by [employer]. It has not been cleared or approved by theFDA. This assay has been validated pursuant to the CLIAregulations and is used for clinical purposes.THIS TEST WAS PERFORMED AT:[employer] [place] [phone] MEMBRENO MD Ehrlichia chaffensis DNA Real Time PCR NOT DETECTED NOT DETECTED [facility] Comment:This test was develo ped and its analytical performancecharacteristics have been determined by [employer]. It has not been cleared or approved by theFDA. This assay has been validated pursuant to the CLIAregulations and is used for clinical purposes.THIS TEST WAS PERFORMED AT:[employer] [address] [phone] MEMBRENO MD Anaplasma phagocytophilum DNA, QL Real Time PCR NOT DETECTED NOT DETECTED [facility] Comment:This test was develo ped and its analytical performancecharacteristics have been determined by [employer]. It has not been cleared or approved by theFDA. This assay has been validated pursuant to the CLIAregulations and is used for clinical purposes. Borrelia Species DNA, Ql Real Time PCR NOT DETECTED NOT DETECTED [facility] Comment:This test was develo ped and its analytical performancecharacteristics have been determined by [employer]. It has not been cleared or approved by theFDA. This assay has been validated pursuant to the CLIAregulations and is used for clinical purposes.For additional information, please refer [email or web address]/faq/[email or web address](This link is being provided for informational/educational purposes only.)THIS TEST WAS PERFORMED AT:[employer] [address] [phone] MEMBRENO MD Borrelia Miyamotoi DNA, Ql Real Time PCR NOT DETECTED NOT DETECTED [facility] Comment:This test detects bu t does not distinguish betweenB. miyamotoi and B. hermsii.This test was developed and its analytical performancecharacteristics have been determined by [employer]. It has not been cleared or approved by theFDA. This assay has been validated pursuant to the CLIAregulations and is used for clinical purposes.THIS TEST WAS PERFORMED AT:[employer] [address] [phone] MEMBRENO MD Comment SEE NOTE [facility] Comment:A negative result do es not exclude Borrelia infectionas the concentration of the organism in blood may be lowor non-existent in patients with Lyme disease, and maydepend on timing of specimen collection from onset ofsymptoms. Clinical correlation is recommended andadditional studies such as serologic testing may beindicated.THIS TEST WAS PERFORMED AT:[employer] [place] [phone] MEMBRENO MD 03/24/2024 12:1 5 PM EDT 03/24/2024 12:19 PM EDT Generic External Data Provider LAB BLOOD ORDERAB LES Final Result Performing Organization Address [facility]/ZIP Co de Phone Number [facility] [address] [place] [phone] * Slide Review (03/24/2024 12:15 PM EDT) Slide Review VERIFIED [facility] 03/24/2024 12:1 5 PM EDT 03/24/2024 12:19 PM EDT Generic External Data Provider LAB BLOOD ORDERAB LES Final Result Performing Organization Address [facility] Co de Phone Number [facility] [address] [place] [phone] * (ABNORMAL) CBC auto differential (03/24/2024 12:15 PM EDT) White Blood Count 8.3 4.8 - 10.8 X10*3/uL [facility] Red Blood Count 4.86 4.60 - 5.80 X10*6/uL [facility] Hemoglobin 14.0 14.0 - 18.0 g/dl [facility] Hematocrit 41.0(L) 42.0 - 52.0 % [facility] Mean Corpuscular Volume 84.4 80.0 - 98.0 fL [facility] Mean Corpuscular Hemoglobin 28.8 27.0 - 33.0 pg [facility] Mean Corpuscular HGB Conc 34.1 31.0 - 36.0 g/dl [facility] Red Cell Distribution Width 12.2 11.0 - 16.0 % [facility] Platelet Count 122(L) 160 - 400 X10*3/uL [facility] Comment:Confirmed by smear. Mean Platelet Volume 10.8 9.4 - 12.4 fL [facility] Neutrophils Percent Auto 62.4 45 - 73 % [facility] Imm Gran Pct Auto 0.7(H) 0.0 - 0.4 % [facility] Lymphocytes Percent Auto 27.4 20 - 40 % [facility] Monocytes Percent Auto 5.6 2 - 11 % [facility] Eosinophils Percent Auto 3.3 0 - 4 % [facility] Basophils Percent Auto 0.6 0 - 2 % [facility] NRBC Pct Auto 0.0 0.0 - 0.2 /100WBC [facility] Neutrophils Absolute Auto 5.2 2.0 - 8.3 x10*3/uL [facility] Imm Gran Abs Auto 0.06(H) 0.00 - 0.03 X10*3/uL [facility] Lymphocytes Absolute Auto 2.3 1.2 - 4.9 X10*3/uL [facility] Monocytes Absolute Auto 0.5 0.1 - 1.2 X10*3/uL [facility] Eosinophils Absolute Auto 0.3 0.0 - 0.4 X10*3/uL [facility] Basophils Absolute Auto 0.1 0.0 - 0.2 X10*3/uL [facility] NRBC Abs Auto 0.000 0.0 - 0.012 X10*3/uL [facility] 03/24/2024 12:1 5 PM EDT 03/24/2024 12:19 PM EDT us Generic External Data Provider LAB BLOOD ORDERAB LES Edited Result - Final [facility] [address] [place] [address] [phone] * TSH with Reflex to Free T4 (03/24/2024 12:15 PM EDT) TSH reflex Free T4 1.53 0.32 - 4.0 uIU/mL [facility] 03/24/2024 12:1 5 PM EDT 03/24/2024 12:19 PM EDT us Generic External Data Provider LAB BLOOD ORDERAB LES Final Result Performing Organization Address City/[facility]/ZIP Co de Phone Number [facility] [address] [place] [phone] * Ferritin (03/24/2024 12:15 PM EDT) Pathologist [facility] Ferritin 109 20 - 250 ng/mL [facility] 03/24/2024 12:1 5 PM EDT 03/24/2024 12:19 PM EDT Generic External Data Provider LAB BLOOD ORDERAB LES Final Result Performing Organization Address [facility] Co de Phone Number [facility] [address] [place] [phone] * High Sensitivity Troponin I (03/24/2024 12:15 PM EDT) Pathologist [facility] TROPONIN I HIGH SENSITIVITY <2.7 <3.5 - 35.0 ng/L [facility] Comment:The Cha high sens itivity Troponin-I results should beused in conjunction with other diagnostic information suchas ECG, clinical observations and information, and patientsymptoms to aid in the diagnosis of VT. 03/24/2024 12:1 5 PM EDT 03/24/2024 12:19 PM EDT us Generic External Data Provider LAB BLOOD ORDERAB LES Final Result Performing Organization Address [facility]/ZIP Co de Phone Number [facility] [address] [place] [phone] * Magnesium (03/24/2024 12:15 PM EDT) Magnesium 1.9 1.6 - 2.6 mg/dL [facility] 03/24/2024 12:1 5 PM EDT 03/24/2024 12:19 PM EDT us Generic External Data Provider LAB BLOOD ORDERAB LES Final Result [facility] [address] [place] [phone] * (ABNORMAL) Comprehensive Metabolic Panel (03/24/2024 12:15 PM EDT) Sodium 140 135 - 145 mmol/L [facility] Potassium 3.6 3.3 - 5.1 mmol/L [facility] Chloride 106 96 - 108 mmol/L [facility] Carbon Dioxide 27 22 - 29 mmol/L [facility] Anion Gap 11(L) 12 - 20 [facility] Urea Nitrogen (BUN) 8(L) 9 - 16 mg/dL [facility] Creatinine, Serum 0.84 0.5 - 1.4 mg/dL [facility] Creatinine Clr Calc Pharmacy 145.2 [facility] Comment:eGFR (calculated fro m the MDRD study equation) and eCrCl(calculated from the Cockcroft-Gault equation) are based ondifferent parameters and may not yield comparable results.If eCrCl result is absurd, please check patient'sheight/weight. Estimated Glomerular Filt Rate >60 [facility] Comment:NOTE: For -Am erican individuals, multiply the result by 1.210.Chronic Kidney Disease: Estimated GFR < 60 mL/min/1.22m3Txrkda Kidney Disease: Estimated GFR < 15 mL/min/1.73m2 Glucose 113 60 - 115 mg/dL [facility] Calcium 9.3 8.4 - 10.2 mg/dL [facility] Bilirubin, Total 0.3 0.0 - 1.0 mg/dL [facility] Aspartate Amino Transferase 15 5 - 37 U/L [facility] Alanine Aminotransferase 13 0 - 40 U/L [facility] Total Protein 7.5 6.5 - 8.0 g/dL [facility] Albumin Level 4.3 3.5 - 5.0 g/dL [facility] Alkaline Phosphatase 79 39 - 117 U/L [facility] 03/24/2024 12:1 5 PM EDT 03/24/2024 12:19 PM EDT Generic External Data Provider LAB BLOOD ORDERAB LES Final Result Performing Organization Address [facility] Co de Phone Number [facility] [address] [place] [phone] * Prothrombin Time-INR (03/24/2024 12:15 PM EDT) Prothrombin Time 12.4 11.1 - 13.3 SEC [facility] INTERNATIONAL NORM RATIO 1.0 0.9 - 1.1 [facility] Comment:INTERNATIONAL NORMAL IZED RATIO (INR) REFERENCE RANGES Reference RangeFor patients not on anticoagulant therapy: 0.9 - 1.1INR ranges for oral anticoagulanttherapy:For prevention and treatment of venous thrombosis and pulmonary embolism: 2.0 - 3.0For acute myocardial infarction with aspirin therapy: 2.0 - 3.0For acute myocardial infarction without aspirin therapy: 3.0 - 4.0For patients with mechanical prosthetic heart valves: 2.5 - 3.5 03/24/2024 12:1 5 PM EDT 03/24/2024 12:19 PM EDT [employer] External Data Provider LAB BLOOD ORDERAB LES Final Result Performing Organization Address [facility] de Phone Number [facility] [address] [place] [phone] * (ABNORMAL) Reticulocyte Count (03/16/2024 11:56 AM EDT) Reticulocytes Absolute 0.127(H) 0.026 - 0.095 X10*6/uL [facility] Immature Retic Fraction 15.3(H) 2.3 - 13.4 % [facility] Retic HGB Equivalent 33.6 30.0 - 35.0 pg [facility] Reticulocyte Percent 2.8(H) 0.5 - 1.8 % [facility] Blood Venous blood specimen / Unknown 03/16/2024 11:56 AM EDT 03/16/2024 2:40 PM EDT us Diann Ramirez MD LAB BLOOD ORDERABLES Final Result Performing Organization Address [facility] Co de Phone Number [facility] [address] [place] [phone] * Ferritin (03/16/2024 11:56 AM EDT) Ferritin 118 20 - 250 ng/mL [facility] Blood Venous blood specimen / Unknown 03/16/2024 11:56 AM EDT 03/16/2024 2:42 PM EDT us Diann Ramirez MD LAB BLOOD ORDERABLES Final Result Performing Organization Address [facility] Co de Phone Number [facility] [address] [place] [phone] * Iron And Total Iron Binding Capacity (03/16/2024 11:56 AM EDT) Iron 55 45 - 160 mcg/dL [facility] Total Iron Binding Capacity 261 228 - 428 mcg/dL [facility] Percent Iron Saturation 21 15 - 50 % [facility] Unsaturated Iron Binding 206 ug/dL [facility] Blood Venous blood specimen / Unknown 03/16/2024 11:56 AM EDT 03/16/2024 2:42 PM EDT us Diann Ramirez MD LAB BLOOD ORDERABLES Final Result [facility] [address] [place] [phone] documented in this encounter Visit Diagnoses Diagnosis Microcytic anemia- Primary Unspecified iron deficiency anemia Vitamin D deficiency Primary hypertension Unspecified essential hypertension Numbness of right foot Numbness of left foot Bicytopenia documented in this encounter Additional Health Concerns Assessment Noted Time PHQ-9 Depression Total Score: 1 10/31/19 23 3:59 PM EST documented as of this encounter Care Teams Marine Specialist Relationship Specialty Start Date End Date Diann Ramirez MD [address] [place] [phone] PCP - General Internal Medicine 07/16/12 documented as of this encounter
--- OUTSIDE RECORDS SUMMARY | 2024-11-13 11:42 | XMS_ITS | Encounter Summary ---
Author Organization [employer] Address [address] [facility] [address] [place] [address] Care Team Providers Care Reel Cutter Name Role Phone Diann Ramirez MD Primary Care Provider [phone] Encounter Details Date Type Department Care Team (Late st Contact Info) Description 11/11/2024 Orders Only [facility] External Provider, [facility] Social History Tobacco Use Types Packs/Day Years [...] Description 11/15/2024 9:15 AM EST Office Visit [facility] [address] [place] [address] Diann Ramirez MD [address] [place] [address] 11/16/2024 3:45 PM EST Office Visit [facility] [address] [place] [address] Diann Ramirez MD [address] [place] [address] 12/20/2024 2:00 PM EST Telemedicine [facility] [address] [place] [address] Naomi Reyes, RN [address] [place] [address] documented as of this encounter Procedures Procedure Name Priority Date/Time Associated Diagnosis Comments XR ANKLE 3+ VIEWS LEFT Routine 11/11/2024 10:45 AM EST XR TIBIA FIBULA 2 VIEWS LEFT Routine 11/11/2024 10:45 AM EST documented in this encounter Results * XR Tibia Fibula 2 Views Left (11/11/2024 10:45 AM EST) Anatomical Region Laterality Modality Lower Extremities, Lower Leg Left Rad iographic Imaging 11/11/2024 10:4 5 AM EST Narrative 11/11/2024 11:32 AM EST ? [facility] ?[address] ?[place] [address] ?XRay Report ? Signed ? Patient: Stopa,Luc J ?MR#: [id number] ?? 78 ? : 1980 ?Acct:[id number] ? Age/Sex: 44 / M ?ADM Date: 11/11/24 ? Loc: HO.ED ? Attending Dr: ? Ordering Physician: Generic ED Physician ?? Date of Service: 11/11/24 ?? Procedure(s): XR tibia fibula LT 2V ?? Accession Number(s): [id number] ? cc: Diann Ramirez MD; Generic ED Physician ? Examination: Left tibia and fibula. 2 views. ? CLINICAL INDICATION: Fall, leg pain. ? COMPARISON: None. ? FINDINGS: There is a distal fibular oblique fracture. Rest of the ?? fibula and the tibia is normal. Mild lateral malleolar soft tissue ?? swelling. ? XR/XR tibia fibula LT 2V ?? IMPRESSION: Distal fibular oblique fracture. ? Electronically signed by: ??Livan Swenson MD ??11/11/2024 11:29 AM EST RP ? Dictated By: ?Livan Swenson MD ? Signed By: ?<Electronically signed by Livan Swenson MD in OV> ?11/11/24 1129 ? DD/ 1045 ? TD/TT: 11/11/24 1100 ? Chief Executive Officer: MSM ? Procedure Note Kateryna, Colt - 11/11/2024 [place] [address] XRay Report Signed Patient: Luc Erickson JMR#: [id number] 78 : 1980Acct:[id number] Age/Sex: 44 / MADM Date: 11/11/24 Loc: HO.ED Attending Dr: Ordering Physician: Generic ED Physician Date of Service: 11/11/24 Procedure(s): XR tibia fibula LT 2V Accession Number(s): [id number] cc: Diann Ramirez MD; Generic ED Physician Examination: Left tibia and fibula. 2 views. CLINICAL INDICATION: Fall, leg pain. COMPARISON: None. FINDINGS: There is a distal fibular oblique fracture. Rest of the fibula and the tibia is normal. Mild lateral malleolar soft tissue swelling. XR/XR tibia fibula LT 2V IMPRESSION: Distal fibular oblique fracture. Electronically signed by: Livan Swenson MD 11/11/2024 11:29 AM EST RP Dictated By: Livan Swenson MD Signed By: <Electronically signed by Livan Swenson MD in OV> 11/11/24 1129 DD/ 1045 TD/TT: 11/11/24 1100 Chief Executive Officer: FEMI [facility] External Provider IMG XR PROCEDURES Final Result * XR Ankle 3+ Views Left (11/11/2024 10:45 AM EST) Anatomical Region Laterality Modality Lower Extremities, Ankle Left Radiogr aphic Imaging 11/11/2024 10:4 5 AM EST Narrative 11/11/2024 11:32 AM EST ? [facility] ?[address] ?[place] [address] ?XRay Report ? Signed ? Patient: Luc Erickson ?MR#: [id number] ?? 78 ? : 1980 ?Acct:[id number] ? Age/Sex: 44 / M ?ADM Date: 11/11/24 ? Loc: HO.ED ? Attending Dr: ? Ordering Physician: Generic ED Physician ?? Date of Service: 11/11/24 ?? Procedure(s): XR ankle LT min 3V ?? Accession Number(s): [id number] ? cc: Diann Ramirez MD; Generic ED Physician ? EXAMINATION: ?? XR ANKLE, LEFT ? CLINICAL INFORMATION: ?? fall, left leg pain ? COMPARISON: ?? None available. ? TECHNIQUE: ?? AP, lateral, and mortise views of the left ankle. ? FINDINGS: ?? There is distal fibular oblique fracture with mild displacement and ?? moderate lateral malleolus soft tissue swelling there is mild medial ?? malleolus or fracture as well. The ankle mortise and subtalar joints ?? are normal. The distal tibia is intact. ? XR/XR ankle LT min 3V ?? IMPRESSION: ?? Distal fibular oblique fracture with mild displacement and moderate ?? lateral malleolus soft tissue swelling. There is mild medial malleolar ?? fracture as well. ? Electronically signed by: ??Livan Swenson MD ??11/11/2024 11:29 AM EST RP ? Dictated By: ?Leela,Livan S MD ? Signed By: ?<Electronically signed by Livan S Leela MD in OV> ?11/11/24 1129 ? DD/ 1045 ? TD/TT: 11/11/24 1100 ? Chief Executive Officer: FEMI ? Procedure Note Donothenryinterpreter, Image - 11/11/[address] [address] XRay Report Signed Patient: Luc Erickson JMR#: [id number] 78 : 1980Acct:[id number] Age/Sex: 44 / MADM Date: 11/11/24 Loc: HO.ED Attending Dr: Ordering Physician: Generic ED Physician Date of Service: 11/11/24 Procedure(s): XR ankle LT min 3V Accession Number(s): [id number] cc: Diann Ramirez MD; Generic ED Physician EXAMINATION: XR ANKLE, LEFT CLINICAL INFORMATION: fall, left leg pain COMPARISON: None available. TECHNIQUE: AP, lateral, and mortise views of the left ankle. FINDINGS: There is distal fibular oblique fracture with mild displacement and moderate lateral malleolus soft tissue swelling there is mild medial malleolus or fracture as well. The ankle mortise and subtalar joints are normal. The distal tibia is intact. XR/XR ankle LT min 3V IMPRESSION: Distal fibular oblique fracture with mild displacement and moderate lateral malleolus soft tissue swelling. There is mild medial malleolar fracture as well. Electronically signed by: Livan Swenson MD 11/11/2024 11:29 AM EST Dictated By: Livan Swenson MD Signed By: <Electronically signed by Livan Swenson MD in OV> 11/11/24 1129 DD/ 1045 TD/TT: 11/11/24 1100 Chief Executive Officer: FEMI [facility] External Provider IMG XR PROCEDURES Final Result documented in this encounter Visit Diagnoses Not on filedocumented in this encounter Additional Health Concerns Assessment Noted Time PHQ-9 Depression Total Score: 4 03/20/20 24 9:12 AM EDT documented as of this encounter Care Teams Reel Cutter Relationship Specialty Start Date End Date Diann Ramirez MD [address] [place] [address] PCP - General Internal Medicine 07/16/12 documented as of this encounter
--- OUTSIDE RECORDS SUMMARY | 2024-11-13 11:42 | XMS_ITS | Clinical Summary ---
Author Organization [employer] [facility] ity Address [address] [place] [address] Care Team Providers Care Supervisor Putty And Caluking Name Role Phone Unavailable Primary Care Provider Unavailabl e Social History Tobacco Use Types Packs/Day Years Used Date Smoking Tobacco: Never Assessed Sex and Gender Information Value Date Recorded Sex Assigned at Not on file Gender Identity Not on file Sexual Orientation Not on file Plan of Treatment Health Maintenance Due Date Last Done Comments DTaP,Tdap,and Td Vaccines (1 - Tdap) 1999 Hepatitis B Vaccines (1 of 3 - 19+ 3-dose series) 1999 Cholesterol Screening (Lipid Panel) 09/22/2022 Depression Screening 09/22/2022 HIV Screening 09/22/2022 Hepatitis C Screening 09/22/2022 Social Influencers of Health Screening 09/22/2022 COVID-19 Vaccine (2023-2 5 season) 2024 Influenza Vaccine (#1) 2024 HIB Vaccines Aged Out No longer eligi ble based on patient's age to complete this topic HPV Vaccines Aged Out No longer eligi ble based on patient's age to complete this topic Hepatitis A Vaccines Aged Out No long er eligible based on patient's age to complete this topic IPV Vaccines Aged Out No longer eligi ble based on patient's age to complete this topic MMR Vaccines Aged Out No longer eligi ble based on patient's age to complete this topic Meningococcal ACWY Vaccine Aged Out N o longer eligible based on patient's age to complete this topic Pneumococcal Vaccine: Pediat rics (0 to 5 Years) and At-Risk Patients (6 to 64 Years) Aged Out No longer eligible b ased on patient's age to complete this topic RSV Immunization Patients Un klarissa 20 months Aged Out No longer eligible b ased on patient's age to complete this topic Varicella Vaccines Aged Out No longer eligible based on patient's age to complete this topic
--- OUTSIDE RECORDS SUMMARY | 2024-11-13 11:42 | XMS_ITS | Encounter Summary ---
Author Organization [employer] Address [address] [facility] 7t [place] [address] Care Team Providers Care Truck Driver Heavy Name Role Phone Diann Ramirez MD Primary Care Provider [phone] Encounter Details Date Type Department Care Team (Late st Contact Info) Description 05/18/2024 Orders Only [facility] [address] [place], [place] [id number] Provider, MD Shar Social History Tobacco Use Types Packs/Day Years [...] Description 11/15/2024 9:15 AM EST Office Visit [facility] [address] [place] [address] Diann Ramirez MD [address] [place] [address] 11/16/2024 3:45 PM EST Office Visit [facility] [address] [place] [address] Diann Ramirez MD [address] [place] [address] 12/20/2024 2:00 PM EST Telemedicine [facility] [address] [place] [address] Naomi Reyes RN [address] [place] [address] documented as of this encounter Procedures Procedure Name Priority Date/Time Associated Diagnosis Comments EMG Routine 05/17/2024 10:39 AM EDT documented in this encounter Results * EMG (05/17/2024 10:39 AM EDT) us Historical Provider NEUROLOGY ORDERABLES Rhea l Result documented in this encounter Visit Diagnoses Not on filedocumented in this encounter Additional Health Concerns Assessment Noted Time PHQ-9 Depression Total Score: 4 03/20/20 24 9:12 AM EDT documented as of this encounter Care Teams Truck Driver Heavy Relationship Specialty Start Date End Date Diann Ramirez MD [address] [place] [address] PCP - General Internal Medicine 07/16/12 documented as of this encounter
--- OUTSIDE RECORDS SUMMARY | 2024-11-13 11:42 | XMS_ITS | Encounter Summary ---
Author Organization [employer] Address [address] [facility] [address] [place] [address] Care Team Providers Care Blue Crabber Name Role Phone Diann Ramirez MD Primary Care Provider [phone] Reason for Visit * Reason Onset Date Comments Med Refill 07/28/2024 Encounter Details Date Type Department Care Team (Late st Contact Info) Description 07/28/2024 Telephone [facility] [address] [place] [address] Diann Ramirez MD [address] [place], [place] [id number] Med Refill Social History Tobacco Use Types [...] * Telephone Encounter - Shahriar Paez - 07/28/2024 11:05 AM EDT TC from pt requesting medication refill. Medications needing refill: LORazepam (Ativan) 1 MG tablet To be sent to: [id number] - [place] - [address] [facility] documented in this encounter Plan of Treatment Upcoming Encounters Date Type Department Care Team (Late st Contact Info) Description 11/15/2024 9:15 AM EST Office Visit [facility] [address] [place] [address] Diann Ramirez MD [address] [place] [address] 11/16/2024 3:45 PM EST Office Visit [facility] [address] [place] [address] Diann Ramirez MD [address] [place] [address] 12/20/2024 2:00 PM EST Telemedicine [facility] [address] [place] [address] Naomi Reyes, TABATHA [address] [place] [address] documented as of this encounter Visit Diagnoses Not on filedocumented in this encounter Additional Health Concerns Assessment Noted Time PHQ-9 Depression Total Score: 4 03/20/20 24 9:12 AM EDT documented as of this encounter Care Teams Blue Crabber Relationship Specialty Start Date End Date Diann Ramirez MD [address] [place] [address] PCP - General Internal Medicine 07/16/12 documented as of this encounter
--- OUTSIDE RECORDS SUMMARY | 2024-11-13 11:42 | XMS_ITS | Encounter Summary ---
Author Organization [employer] Address [address] [place] [address] [address] [place] [address] Care Team Providers Care Information Security Manager Name Role Phone Diann Ramirez MD Primary Care Provider [phone] Reason for Referral * Consultation (Routine) - Closed Specialty Diagnoses / Procedures Referred By Contcary t Referred To Contact Behavioral Health Diagnoses Anxiety Diann Ramirez MD [address] [place] [address] Phone: tel: fax: Referral ID Status Reason Start Date Expiration Date V isits Requested Visits Authorized [id number] Closed Specialty Services Required 03/30/2024 03/30/2025 1 1 Encounter Details Date Type Department Care Team ([facility] st Contact Info) Description 03/30/2024 Orders Only [facility] [address] [place] [address] Diann Ramirez MD [address] [place] [address] Anxiety (Primary Dx) Social History Tobacco Use Types Packs/Day Years [...] Description 11/15/2024 9:15 AM EST Office Visit [facility] [address] [place] [address] Diann Ramirez MD [address] [place] [address] 11/16/2024 3:45 PM EST Office Visit [facility] [address] [place] [address] Diann Ramirez MD [address] [place] [address] 12/20/2024 2:00 PM EST Telemedicine [facility] [address] [place] [address] Naomi Reyes RN [address] [place] [address] Scheduled Referrals Name Type Priority Associated Diagnoses Order Schedule Referral to Behavioral Health Outpatient Referral Routine Anxiety Expected: 03/30/2024 (Approximate), Expires: 03/30/2025 documented as of this encounter Visit Diagnoses Diagnosis Anxiety- Primary Anxiety state, unspecified documented in this encounter Additional Health Concerns Assessment Noted Time PHQ-9 Depression Total Score: 4 03/20/20 24 9:12 AM EDT documented as of this encounter Care Teams Information Security Manager Relationship Specialty Start Date End Date Diann Ramirez MD [address] [place] [address] PCP - General Internal Medicine 07/16/12 documented as of this encounter
--- OUTSIDE RECORDS SUMMARY | 2024-11-13 11:42 | XMS_ITS | Clinical Summary ---
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 Buprenorphine HCl-Naloxone HCl (Suboxone) 8-[address] 2 film by sublingual route every day allow to dissolve slowly in mouth without chewing or swallowing Active cholecalciferol (Vitamin D-3) 50 MCG (2000 UT) tablet 1 tab once a day 07/01/20 22 Active docusate sodium (Colace) 100 MG capsule Take 1 capsule by mouth if needed at bedtime. 07/01/20 22 Active FLUoxetine (PROzac) 10 MG capsule take 1 capsule by oral route every day 08/06/20 22 Active ibuprofen 600 MG tablet take 1 tablet by oral route once a day as needed. 08/07/20 22 Active hydrOXYzine pamoate (Vistaril) 50 MG capsule Take 1 capsule by oral route every day as needed. 08/06/20 22 Active Elastic Bandages & Supports (Futuro Restoring Dress Socks) miscIndications :knee high. 15/20 mm/Hg Futuro restoring medium compression socks To wear daily prior to getting out of bed Active albuterol 108 (90 Base) MCG/ACT inhalerIndicati ons:Bronchospas m Inhale 2 puffs every 4 (four) hours if needed for wheezing. 18 g 10/18/20 22 Active Additional Information Patient not taking.Reported on 10/31/2022 hydrocortisone 1 % lotionIndicatio ns:Skin rash Apply topically 2 times daily. 113 g 1 10/31/19 23 Active fexofenadine (Susana) 180 MG tabletIndicatio ns:Skin rash Take 1 tablet (180 mg) by mouth if needed each day (Allergies). 30 tablet 1 10/31/19 23 Active hydroCHLOROthia zide (HYDRODiuril) 12.5 MG tabletIndicatio ns:Primary hypertension Take 1 tablet (12.5 mg) by mouth in the morning. 30 tablet 11 10/31/19 23 Active Diclofenac Sodium 1 % gelIndications: Tendinitis of right forearm To use on the affected area 2 times a day 100 g 1 03/11/20 23 Active ergocalciferol (Vitamin D2) 1.25 MG (08026 UT) capsuleIndicati ons:Vitamin D deficiency Take 1 capsule (1.25 mg) by mouth 1 (one) time per week. 12 capsule 03/12/20 24 Active Blood Pressure kitIndications: Primary hypertension Take by on arm route as directed 1 kit 03/12/20 24 Active hydrOXYzine pamoate (Vistaril) 50 MG capsuleIndicati ons:Anxiety Take 1 capsule (50 mg) by mouth 3 times daily. 90 capsule 3 04/02/20 24 Active atenolol (Tenormin) 50 MG tablet Take 1 tablet (50 mg) by mouth Once per day. 30 tablet 11 07/14/20 24 2024 Active Simethicone (Gas-Ex) 125 MG tablet tabletIndicatio ns:Bloating symptom Take 1 tablet (125 mg) by mouth every 6 (six) hours if needed (Bloating). 120 tablet 1 07/14/20 24 Active Omeprazole 20 MG tablet delayed-release Indications:Hia sherman hernia Take 1 tablet (20 mg) by mouth Once per day. 30 tablet 1 10/01/20 24 Active LORazepam (Ativan) 1 MG tabletIndicatio ns:Anxiety TAKE 1 TABLET(1 MG) BY MOUTH EVERY 6 HOURS. Do not start before October 30, 2024. 120 tablet 10/30/19 25 Active LORazepam (Ativan) 1 MG tabletIndicatio ns:Anxiety TAKE 1 TABLET(1 MG) BY MOUTH EVERY 6 HOURS. 120 tablet 10/01/20 24 2024 Discontinued(R eorder (will not trigger notification to Pharmacy)) Active Problems Problem Noted Date Diagnosed Date Hiatal hernia 10/01/2024 Generalized anxiety disorder 07/27/2024 Assessment & Plan (07/27/2024 1:30 PM EDT): During IBH Consult Luc presenting with excessive worry/anxiety, difficulty controlling worry, anxiety/worry associated to restlessness and/or feeling keyed-up/On edge , easily fatigued , difficulty concentrating and/or mind going blank , irritability, and sleep disturbance difficulty falling asleep, Fear , and sense of dread and Recurrent panic attacks (abrupt surge of intese chavo or discomfort that reaches peak within minutes and during which time the following occur (4 or more) palpitations, trembling/shaking, sensation of shortness of breath/smothering, Chest pain/discomfort, nausea/abdominal distress, Chills/heat sensation, numbness/tingling, fear of dying; for a period of 18+ mo, for most or all symptoms in the context of illness or family illness and employment concern. Luc reports presentation of sxs since he was 20 y/o. He has been on medication for anxiety and reports the medication works but when sxs are high he's unable to self-manage. Pt's medical condition is worsening which is creating more anxiety. Lack of social support and having a network to rely on is also identified as barrier creating a sense of isolation and loneliness. Pt is not currently working and reports can't leave the house due to high anxiety. clinician engaged patient with active, reflective listening and validation of emotions. He was open to explore coping mechanisms for anxiety and panic sxs (breathing techniques, journaling and meditation). Reviewed and assess for risk, current stressors and protective factors. Referral placed sent to [facility] on 07/21 for OP services. Provided information from agency so that pt can contact them directly and request update. Assessment & Plan (05/17/2024 12:09 PM EDT): During IBH Consult Luc presenting with excessive worry/anxiety, difficulty controlling worry, easily fatigued, difficulty concentrating/Mind going blank , irritability, and sleep disturbance difficulty staying asleep and palpitations, sweating, sensation of shortness of breath/smothering, feeling of choking, Chest pain/discomfort, dizzy/unsteady/light-headed/faint, numbness/tingling, Persistent concern/worry of panic attacks or their consequences; for a period of 18+ mo, for all symptoms in the context of illness or family illness and housing. Luc reports presentation of sxs since he was 20 y/o. He has been on medication for anxiety and reports the medication works but when sxs are high he's unable to self-manage. Pt has difficulty sharing emotions and seeking out for help. clinician engaged patient with active, reflective listening and validation of emotions. He was open to explore coping mechanisms for anxiety and panic sxs (breathing techniques, journaling and meditation). Reviewed and assess for risk, current stressors and protective factors. PLAN: (check all that apply) New/Additional Services needed Off-site services for Behavioral Health Integration Plan External OP therapy referral Patient Self Plan Patient to utilize skills provided in intervention , Patient to [facility] to [facility] as needed, Patient to engage in OP therapy , and Patient to reach out to [facility] as needed Assessment & Plan (03/20/2024 11:35 AM EDT): Current sxs might be exacerbated by anxiety. I gave him reassurance re lab results and BP reading as above, he agree with POC re repeat CBC and BP check later today. Advised to use lorazepam as rx and consider to restart fluoxetine, he will fu with his PCP. Panic attacks 05/11/2024 Assessment & Plan (07/27/2024 1:30 PM EDT): During IBH Consult Luc presenting with excessive worry/anxiety, difficulty controlling worry, anxiety/worry associated to restlessness and/or feeling keyed-up/On edge , easily fatigued , difficulty concentrating and/or mind going blank , irritability, and sleep disturbance difficulty falling asleep, Fear , and sense of dread and Recurrent panic attacks (abrupt surge of intese chavo or discomfort that reaches peak within minutes and during which time the following occur (4 or more) palpitations, trembling/shaking, sensation of shortness of breath/smothering, Chest pain/discomfort, nausea/abdominal distress, Chills/heat sensation, numbness/tingling, fear of dying; for a period of 18+ mo, for most or all symptoms in the context of illness or family illness and employment concern. Luc reports presentation of sxs since he was 20 y/o. He has been on medication for anxiety and reports the medication works but when sxs are high he's unable to self-manage. Pt's medical condition is worsening which is creating more anxiety. Lack of social support and having a network to rely on is also identified as barrier creating a sense of isolation and loneliness. Pt is not currently working and reports can't leave the house due to high anxiety. clinician engaged patient with active, reflective listening and validation of emotions. He was open to explore coping mechanisms for anxiety and panic sxs (breathing techniques, journaling and meditation). Reviewed and assess for risk, current stressors and protective factors. Referral placed sent to [facility] on 07/21 for OP services. Provided information from agency so that pt can contact them directly and request update. Assessment & Plan (05/17/2024 12:09 PM EDT): During IBH Consult Luc presenting with excessive worry/anxiety, difficulty controlling worry, easily fatigued, difficulty concentrating/Mind going blank , irritability, and sleep disturbance difficulty staying asleep and palpitations, sweating, sensation of shortness of breath/smothering, feeling of choking, Chest pain/discomfort, dizzy/unsteady/light-headed/faint, numbness/tingling, Persistent concern/worry of panic attacks or their consequences; for a period of 18+ mo, for all symptoms in the context of illness or family illness and housing. Luc reports presentation of sxs since he was 20 y/o. He has been on medication for anxiety and reports the medication works but when sxs are high he's unable to self-manage. Pt has difficulty sharing emotions and seeking out for help. clinician engaged patient with active, reflective listening and validation of emotions. He was open to explore coping mechanisms for anxiety and panic sxs (breathing techniques, journaling and meditation). Reviewed and assess for risk, current stressors and protective factors. PLAN: (check all that apply) New/Additional Services needed Off-site services for Behavioral Health Integration Plan External OP therapy referral Patient Self Plan Patient to utilize skills provided in intervention , Patient to reach out to [facility] team as needed, Patient to engage in OP therapy , and Patient to reach out to [facility] as needed Thrombocytopenia 03/20/2024 Assessment & Plan (03/20/2024 11:29 AM EDT): Already referred to hematology by PCP> Will repeat CBC to make sure that PLT aren't trending down. Other fatigue 03/20/2024 Assessment & Plan (03/20/2024 11:59 AM EDT): Ro prolonged viral syndrome?, autoimmune disorder?, side effects from benzos + opiates?? Anxiety? Order labs, advised to take all meds as prescribed Sinus bradycardia 03/20/2024 Assessment & Plan (03/20/2024 11:27 AM EDT): Apparently baseline, even before taking bblocker? He declined to change to another medication like aguilar inh or restart hydrochlorothiazide. He should check HR with BP machine , If HR is below 46, he should contact us or go to ED specially if he has sxs fatigue, dizziness. FU with PCP. Obesity 10/01/2022 Episodic opioid dependence 10/01/2022 Vitamin D deficiency 07/01/2022 Assessment & Plan (03/20/2024 11:28 AM EDT): PCP already rx Vit D supplementation, advised to start med. COVID-19 01/27/2021 Hypertension 07/16/2010 Assessment & Plan (03/20/2024 11:27 AM EDT): Uncontrolled, it could be the culprit of some of his sxs like SUTTON, feeling warm. He will check his BP in 2-3h and will go to ED only if sxs are getting worse or BP is higher than 160/95 Advised to take meds regularly and fu BP check with RN this week as scheduled. Encounters * This document contains information received from the source organization and may not represent a complete record from that organization. Date Type Department Care Team Description 11/11/2024 Orders Only [facility] External Provider, [facility] 10/27/2024 Refill [facility] [address] [place] [address] Diann Ramirez MD Anxiety 10/01/2024 Telephone [facility] [address] [place] [address] Diann Ramirez MD Results 10/01/2024 Refill [facility] [address] [place] [address] Diann Ramirez MD Anxiety 10/01/2024 Orders Only [facility] [address] [place] [address] Diann Ramirez MD Hiatal hernia (Primary Dx) 09/22/2024 9:30 AM EST Clinical Support [facility] [address] [place] [address] Naomi Reyes RN Anxiety 09/22/2024 Telephone [facility] [address] [place] [address] Naomi Reyes RN 09/22/2024 Travel 09/02/2024 Refill [facility] [address] [place] [address] Naomi Reyes, TABATHA Anxiety 09/02/2024 Telephone [facility] [address] [place] [id number] Diann Ramirez MD Med Refill from Last 3 Months Immunizations Name Administration Dates Next Due Tdap 08/27/2018 Social History Tobacco Use Types Packs/Day Years Used Date Smoking Tobacco: Never Smokeless Tobacco: Never Tobacco Cessation:Counseling Given: Not Answered Depression Answer Date Recorded Patient Health Questionnaire-9 [...] Orientation Straight 08/19/2022 10 :22 AM EDT Last Filed Vital Signs Vital Sign Reading Time Taken Comments Blood Pressure 158/96 07/14/2024 4:03 PM EDT Pulse 60 07/14/2024 4:03 PM EDT Temperature 36.2 ??C (97.2 ??F) 07/14/2024 4:03 PM ED T Respiratory Rate 20 07/14/2024 4:03 PM EDT Oxygen Saturation 97% 07/14/2024 4:03 PM EDT Inhaled Oxygen Concentration - - Weight 111 kg (245 lb) 07/14/2024 4:03 PM EDT Height 180.3 cm (5' 11 ) 07/14/2024 4:03 PM EDT Body Mass Index 34.17 07/14/2024 4:03 PM EDT Plan of Treatment Upcoming Encounters Date Type Department Care Team (Late st Contact Info) Description 11/15/2024 9:15 AM EST Office Visit [facility] [address] [place] [address] Diann Ramirez MD [address] [place] [address] 11/16/2024 3:45 PM EST Office Visit [facility] [address] [place] [address] Diann Ramirez MD [address] [place], [place] [id number] 12/20/2024 2:00 PM EST Telemedicine [facility] [address], [place] [phone] Naomi Reyes RN [address] [place], [place] [phone] Health Maintenance Due Date Last Done Comments Alcohol/Substance Use Screening 1992 Family Planning (PISQ) 1995 Hepatitis B Vaccines (1 of 3 - 19+ 3-dose series) 1999 COVID-19 Vaccine (2023-2 5 season) 2024 Influenza Vaccine (#1) 2024 Depression Screening 03/20/2025 03/20/2024, 03/20/2024 SDOH Screening 03/20/2025 03/20/2024 Tobacco Screening 2025 2024 DTaP/Tdap/Td Vaccines (2 - T d or Tdap) 08/27/2028 08/27/2018 Lipid Panel 03/11/2029 03/11/2024, 07/01/2022 Zoster Vaccines (1 of 2) 2030 RSV Patients and Patients Aged 60 years or older (1 - 1-dose 75+ series) 2055 Hepatitis C Screening Completed 07/01/2022 HIV Screening Completed 08/07/2022 HIB Vaccines Aged Out No longer eligi [...] patient's age to complete this topic Meningococcal Vaccine Aged Out No mirella alberto eligible based on patient's age to complete this topic Pneumococcal Vaccine: Pediatrics (0 to 5 Years) and At-Risk Patients (6 to 64 Years) Aged Out No longer eligible b ased on patient's age to complete this topic RSV under 20 months Aged Out No longe r eligible based on patient's age to complete this topic Rotavirus Vaccines Aged Out No longer eligible based on patient's age to complete this topic Procedures Procedure Name Priority Date/Time Associated Diagnosis Comments XR TIBIA FIBULA 2 VIEWS LEFT Routine 11/11/2024 10:45 AM EST XR ANKLE 3+ VIEWS LEFT Routine 11/11/2024 10:45 AM EST FL ESOPHAGUS BARIUM SWALLOW Routine 09/30/2024 8:33 AM EST Pharyngoesophageal dysphagia POCT COLLIN-14 URINE DRUG SCREEN Routine 09/22/2024 9:58 AM EST Anxiety LIPID PANEL, STANDARD Routine 03/11/2024 1:07 PM EDT Primary hypertension Anxiety Other chest pain ZZZ HISTORICAL HIV AB/AG Routine 08/07/2022 2:03 PM EDT ZZZ HISTORICAL HEPATITIS C AB W/REFL TO HCV RNA, QN, PCR Routine 07/01/2022 10:13 AM EDT from Last 3 Months or Most Recently Relevant to Health Maintenance Results * XR Ankle 3+ Views Left (11/11/2024 10:45 AM EST) Anatomical Region Laterality Modality Lower Extremities, Ankle Left Radiogr aphic Imaging 11/11/2024 10:4 5 AM EST Narrative 11/11/2024 11:32 AM EST ? [facility] ?[address] ?[place] [address] ?XRay Report ? Signed ? Patient: Stopa,Luc J ?MR#: [id number] ?? 78 ? : 1980 ?Acct:[id number] ? Age/Sex: 44 / M ?ADM Date: 01/23/25 ? Loc: HO.ED ? Attending Dr: ? Ordering Physician: Generic ED Physician ?? Date of Service: 11/11/24 ?? Procedure(s): XR ankle LT min 3V ?? Accession Number(s): [id number] ? cc: Diann Ramirez MD; Generic ED [...] DD/ 1045 ? TD/TT: 11/11/24 1100 ? Top Taper Machine: MSM ? Procedure Note Colt Avendaño - 11/11/2024 [place] [address] XRay Report Signed Patient: Luc Erickson JMR#: [id number] 78 : 1980Acct:[id number] Age/Sex: 44 / MADM Date: 11/11/24 Loc: HO.ED Attending Dr: Ordering Physician: Generic ED Physician Date of Service: 11/11/24 Procedure(s): XR ankle LT min 3V Accession Number(s): [id number] cc: Diann Ramirez MD; Generic ED Physician [...] 11/11/24 1129 DD/ 1045 TD/TT: 11/11/24 1100 Top Taper Machine: FEMI [facility] External Provider IMG XR PROCEDURES Final Result * XR Tibia Fibula 2 Views Left (11/11/2024 10:45 AM EST) Anatomical Region Laterality Modality Lower Extremities, Lower Leg Left Rad iographic Imaging 11/11/2024 10:4 5 AM EST Narrative 11/11/2024 11:32 AM EST ? [facility] ?[address] ?[place] [address] ?XRay Report ? Signed ? Patient: Luc Erickson ?MR#: [id number] ?? 78 ? : 1980 ?Acct:[id number] ? Age/Sex: 44 / M ?ADM Date: 11/11/24 ? Loc: HO.ED ? Attending Dr: ? Ordering Physician: Generic ED Physician ?? Date of Service: 11/11/24 ?? Procedure(s): XR tibia fibula LT 2V ?? Accession Number(s): [id number] ? cc: Diann Ramirez MD; Generic ED [...] AM EST RP ? Dictated By: ?Leela,Livan Hendricks MD ? Signed By: ?<Electronically signed by Livan Swenson MD in OV> ?11/11/24 1129 ? DD/ 1045 ? TD/TT: 11/11/24 1100 ? Top Taper Machine: FEMI ? Procedure Note Donotuseinterpreter, Image - 11/11/[address] [address] XRay Report Signed Patient: Luc Erickson JMR#: [id number] 78 : 1980Acct:[id number] Age/Sex: 44 / MADM Date: 11/11/24 Loc: HO.ED Attending Dr: Ordering Physician: Generic ED Physician Date of Service: 11/11/24 Procedure(s): XR tibia fibula LT 2V Accession Number(s): [id number] cc: Diann Ramirez MD; Generic ED Physician [...] 11/11/24 1129 DD/ 1045 TD/TT: 11/11/24 1100 Top Taper Machine: FEMI [facility] External Provider IMG XR PROCEDURES Final Result * FL Esophagus Barium Swallow (09/30/2024 8:33 AM EST) Anatomical Region Laterality Modality Head, Neck Radiographic Lacey ging 09/30/2024 8:33 AM EST Narrative 09/30/2024 4:36 PM EST ? [facility] ?[address] ?[place] [address] ? Fluoroscopy Report ? Signed ? Patient: Stopa,Luc J ?MR#: [id number] ?? 78 ? : 1980 ?Acct:[id number] ? Age/Sex: 44 / M ?ADM Date: 09/30/24 ? Loc: HO.XRAY ? Attending Dr: Diann Ramirez MD ? Ordering Physician: Diann Ramirez MD ?? Date of Service: 09/30/24 ?? Procedure(s): FL barium swallow ?? Accession Number(s): [id number] ? cc: Diann Ramirez MD ? EXAMINATION: ?? XR FLUOROSCOPY UPPER GI WITH AIR ? CLINICAL INFORMATION: ?? Dysphagia ? COMPARISON: ?? None ? TECHNIQUE: ?? Fluoroscopic air contrast upper GI examination was performed utilizing ?? standard techniques with thin and thick barium and effervescent ?? granules. Numerous spot images were obtained. ? FINDINGS: ?? Lateral cine images of the oropharynx and hypopharynx demonstrate ?? normal swallow mechanism with normal epiglottic inversion and soft ?? palate elevation. No tracheal penetration, glottic or subglottic ?? aspiration identified. No nasopharyngeal reflux present. Hypopharyngeal ?? structures appear normal without evidence of mass or diverticulum. ?? There was no significant cricopharyngeal achalasia. ? Dual and single contrast images of the esophagus demonstrate normal ?? caliber, contour, and mucosal pattern. No evidence of stricture, mass, ?? or ulcerations identified. Esophageal peristalsis was normal. ? A small type I hiatal hernia is present. No significant ?? gastroesophageal reflux was seen during the course of the examination ?? and on reflux views. ? Dual contrast and single contrast images of the stomach demonstrated a ?? normal contour. Evaluation of the gastric mucosa is limited due to ?? underdistention of the stomach from poor tolerance of the effervescent ?? granules. The gastric rugal folds have a thickened appearance, ?? suggestive of gastritis, however, this may be also be due to ?? underdistention of the stomach. No masses are seen. Contrast freely ?? passed into the gastric antrum and duodenal bulb without delay. ? Single and air-contrast images of the duodenal bulb demonstrate no ?? abnormality. The duodenal sweep has a normal appearance, course, and ?? mucosal fold appearance. The imaged proximal jejunum has a normal fold ?? pattern and caliber. ? FLUOROSCOPY TIME: ?? 4 minutes 3 seconds ? Number of Spot Images: 12 ?? Number of Cine: 13 ? DOSE AREA PRODUCT: ?? 2605 uGy-m2 (microgray-meter squared) ? FL/FL barium swallow ?? IMPRESSION: ?? 1. Small type I hiatal hernia. ?? 2. Limited evaluation of the gastric mucosa due to underdistention of ?? the stomach from poor tolerance of effervescent granules. No masses are ?? seen. See above. ? This procedure was performed by Perfecto Babb PA-C, and supervised by ?? Dr. Ruiz ? Electronically signed by: ??Carter Ruiz MD ??09/30/2024 04:33 PM EST RP ?? Workstation: [id number] ? Dictated By: ?Perfecto Babb ? Signed By: ?<Electronically signed by Perfecto Babb in OV> ? 09/30/24 1633 ?<Electronically signed by Carter Ruiz MD in OV> ? 09/30/24 1636 ? DD/ 0833 ? TD/TT: 09/30/24 0904 ? Top Taper Machine: ? Procedure Note Colt Avendaño - 10/01/2024 [place] [address] Fluoroscopy Report Signed Patient: Luc Erickson R#: [id number] 78 : 1980Acct:[id number] Age/Sex: 44 / MADM Date: 09/30/24 Loc: HO.XRAY Attending Dr: Diann Ramirez MD Ordering Physician: Diann Ramirez MD Date of Service: 09/30/24 Procedure(s): FL barium swallow Accession Number(s): [id number] cc: Diann Ramirez MD EXAMINATION: XR FLUOROSCOPY UPPER GI WITH AIR CLINICAL INFORMATION: Dysphagia COMPARISON: None TECHNIQUE: Fluoroscopic air contrast upper GI examination was performed utilizing standard techniques with thin and thick barium and effervescent granules. Numerous spot images were obtained. FINDINGS: Lateral cine images of the oropharynx and hypopharynx demonstrate normal swallow mechanism with normal epiglottic inversion and soft palate elevation. No tracheal penetration, glottic or subglottic aspiration identified. No nasopharyngeal reflux present. Hypopharyngeal structures appear normal without evidence of mass or diverticulum. There was no significant cricopharyngeal achalasia. Dual and single contrast images of the esophagus demonstrate normal caliber, contour, and mucosal pattern. No evidence of stricture, mass, or ulcerations identified. Esophageal peristalsis was normal. A small type I hiatal hernia is present. No significant gastroesophageal reflux was seen during the course of the examination and on reflux views. Dual contrast and single contrast images of the stomach demonstrated a normal contour. Evaluation of the gastric mucosa is limited due to underdistention of the stomach from poor tolerance of the effervescent granules. The gastric rugal folds have a thickened appearance, suggestive of gastritis, however, this may be also be due to underdistention of the stomach. No masses are seen. Contrast freely passed into the gastric antrum and duodenal bulb without delay. Single and air-contrast images of the duodenal bulb demonstrate no abnormality. The duodenal sweep has a normal appearance, course, and mucosal fold appearance. The imaged proximal jejunum has a normal fold pattern and caliber. FLUOROSCOPY TIME: 4 minutes 3 seconds Number of Spot Images: 12 Number of Cine: 13 DOSE AREA PRODUCT: 2605 uGy-m2 (microgray-meter squared) FL/FL barium swallow IMPRESSION: 1. Small type I hiatal hernia. 2. Limited evaluation of the gastric mucosa due to underdistention of the stomach from poor tolerance of effervescent granules. No masses are seen. See above. This procedure was performed by Perfecto Babb PA-C, and supervised by Dr. Ruiz Electronically signed by: Carter Ruiz MD 09/30/2024 04:33 PM [facility] Dictated By: Perfecto Babb Signed By: <Electronically signed by Perfecto Babb in OV> 09/30/24 [id number] <Electronically signed by Carter Ruiz MD in OV> 09/30/24 1636 DD/ 0833 TD/TT: 09/30/24 0904 Top Taper Machine: us Diann Ramirez MD IMG FLUOROSCOPY PROCEDURES Edited Result - Final * POCT COLLIN-14 Urine Drug Screen (09/22/2024 9:58 AM EST) Benzodiazepines Screen, Urine Positive Buprenophine Screen, Urine Positive Urine Urine specimen obtained by clean catch procedure / Unknown 09/22/2024 9:58 AM EST Narrative Naomi Reyes RN - 09/22/2024 9:58 AM EST Lot# [id number] Exp: 09-25-25 us Diann Ramirez MD POINT OF CARE TEST ENTER/ED IT ORDERABLES Final Result * (ABNORMAL) Lipid Panel, Standard (03/11/2024 1:07 PM EDT) Triglycerides 40 <150 mg/dL [facility] Comment:Desirable Triglyceri de: less than 150 mg/dLBorderline High Triglyceride 150-199 mg/dLHigh Triglyceride: 200-499 mg/dLVery High Triglyceride: greater than or equal to 5OO mg/dL Cholesterol 141 <200 mg/dL [facility] Comment:Desirable Cholestero l: less than 200 mg/dLBorderline High Cholesterol: 200-239 mg/dLHigh Cholesterol: greater than 239 mg/dL LDL Cholesterol Calculated 93 <100 mg/dL [facility] Comment:Desirable LDL: less than 100 mg/dLNear Optimal/Above Optimal LDL: 110- 129 mg/dLBorderline High LDL: 130-159 mg/dLHigh LDL: 160-189 mg/dLVery High LDL: greater than or equal to 190 mg/dL HDL Cholesterol 40(L) >40 mg/dL [facility] Comment:Desirable HDL: great er than 40 mg/dL Note: This HDL assay may give artificially low results in patients with liver disease. Blood Venous blood specimen / Unknown 03/11/2024 1:07 PM EDT 03/11/2024 2:22 PM EDT us Diann Ramirez MD LAB BLOOD ORDERABLES Final Result [facility] [address] [place] [address] [phone] * HIV AB/AG (08/07/2022 2:03 PM EDT) HIV AB/AG Nonreactive Nonreactive [facility] Comment: HIV-1 p24 Ag and/or HIV-1/HIV-2 Ab not detected. ?? A test result that is nonreactive does not exclude the possibility of exposure to or infection with HIV-1 and/or HIV-2. Nonreactive results in this assay for individuals with prior exposure to HIV-1 and/or HIV-2 may be due to antigen and antibody levels that are below the limit of detection of this assay. ?? The Cha Freelance Programmer/App Developer HIV Ag/Ab Combo assay result and supplemental assay results should be interpreted in conjunction with the patient's clinical presentation, history and other laboratory results. ??If the results are inconsistent with clinical evidence, additional testing is suggested to confirm the result. 08/07/2022 2:03 PM EDT Tra Linton MD HISTORICAL/NON ORDERAB LE LABS Final Result [facility] * HEPATITIS C AB W/REFL TO HCV RNA, QN, PCR (07/01/2022 10:13 AM EDT) HEPATITIS C ANTIBODY NON-REACT JESSEE NON-REACT JESSEE [facility] INDEX 0.14 <1.00 [facility] Comment: ?? HCV antibody was non-reactive. There is no laboratory ?? evidence of HCV infection. ?? In most cases, no further action is required. However, if recent HCV exposure is suspected, a test for HCV RNA (test code 87713) is suggested. ?? For additional information please refer to http://education.[employer]/faq/JHP55o8 (This link is being provided for informational/ educational purposes only.) ?? 07/01/2022 10:1 3 AM EDT Diann Ramirez MD HISTORICAL/NON ORDERABLE LA BS Final Result [facility]where [address] from Last 3 Months or Most Recently Relevant to Health Maintenance [facility] Care Teams Cordwood Cutter Helper Relationship Specialty Start Date End Date Diann Ramirez MD [address] [facility] [place] [address] PCP - General Internal Medicine 07/16/12
--- OUTSIDE RECORDS SUMMARY | 2024-11-13 11:42 | XMS_ITS | Encounter Summary ---
Author Organization [employer] Address [address] [employer] 7 [place] [address] Care Team Providers Care Vulcanized Fiber Unit Operator Name Role Phone Diann Ramirez MD Primary Care Provider +1 [phone] Reason for Visit * Reason Onset Date Comments Med Refill 05/31/2024 Encounter Details Date Type Department Care Team (Late st Contact Info) Description 05/31/2024 Telephone [facility] MEDICINE [address] [place] [address] Diann Ramirez MD [address] [place] [address] Med Refill Social History Tobacco Use Types [...] encounter Miscellaneous Notes * Telephone Encounter - Long Jonas - 05/31/2024 1:28 PM EDT TC from pt requesting medication refill. Medications needing refill : LORazepam (Ativan) 1 MG tablet To be sent to: [id number] - [place] - [address] [facility] documented in this encounter Plan of Treatment Upcoming Encounters Date Type Department Care Team (Late st Contact Info) Description 11/15/2024 9:15 AM EST Office Visit [facility] MED & PEDS [address] [place] [address] Diann Ramirez MD [address] [place] [address] 11/16/2024 3:45 PM EST Office [facility] [address] [place] [address] Diann Ramirez MD [address] [place] [address] 12/20/2024 2:00 PM EST Telemedicine [facility] [address] [place] [address] Naomi Reyes, TABATHA [address] [place] [address] documented as of this encounter Visit Diagnoses Not on filedocumented in this encounter Additional Health Concerns Assessment Noted Time PHQ-9 Depression Total Score: 4 03/20/20 24 9:12 AM EDT documented as of this encounter Care Teams Vulcanized Fiber Unit Operator Relationship Specialty Start Date End Date Diann Ramirez MD [address] [place] [address] PCP - General Internal Medicine 07/16/12 documented as of this encounter
--- OUTSIDE RECORDS SUMMARY | 2024-11-13 11:42 | XMS_ITS | Encounter Summary ---
Author Organization [employer] Address [address] [place] [address] Care Team Providers Care Third Helper Name Role Phone Diann Ramirez MD Primary Care Provider [phone]- [phone] Reason for Visit * Reason Onset Date Comments Appointment Request 01/06/2023 Encounter Details Date Type Department Care Team (Late st Contact Info) Description 01/06/2023 Telephone [facility] MEDICINE [address] [place] [address] Diann Ramirez MD [address] [place] [address] Appointment Request Social History Tobacco Use Types [...] * Telephone Encounter - Mario Saldivar - 01/06/2023 4:32 PM EDT Tc from pt requesting to r/s appt on 01/06/23 ( ICE SKATING COACH Televisit ) documented in this encounter Plan of Treatment Upcoming Encounters Date Type Department Care Team (Late st Contact Info) Description 11/15/2024 9:15 AM EST Office Visit [facility] MED & PEDS [address] [place] [address] Diann Ramirez MD [address] [place] [address] 11/16/2024 3:45 PM EST Office Visit [facility]ED[facility] [address] [place] [address] Diann Ramirez MD [address] [place] [address] 12/20/2024 2:00 PM EST Telemedicine [facility] PEDS [address] [place] [address] Naomi Reyes, TABATHA [address] [place] [address] documented as of this encounter Visit Diagnoses Not on filedocumented in this encounter Additional Health Concerns Assessment Noted Time PHQ-9 Depression Total Score: 1 10/31/19 23 3:59 PM EST documented as of this encounter Care Teams Third Helper Relationship Specialty Start Date End Date Diann Ramirez MD [address] [place] [address] PCP - General Internal Medicine 07/16/12 documented as of this encounter
--- OUTSIDE RECORDS SUMMARY | 2024-11-13 11:42 | XMS_ITS | Encounter Summary ---
Author Organization [employer] Address 75 [facility] 7 [place] [address] Care Team Providers Care Fashion Marketer Name Role Phone Diann Ramirez MD Primary Care Provider [phone] Reason for Visit * Reason Onset Date Comments Referral 11/21/2022 Encounter Details Date Type Department Care Team (Late st Contact Info) Description 11/21/2022 Telephone [facility] MEDICINE [address] [place] [address] Diann Ramirez MD [address] [place] [address] Referral Social History Tobacco Use Types Packs/Day Years [...] encounter Miscellaneous Notes * Telephone Encounter - Tayler Guillermo RN - 11/21/2022 3:14 PM EST Tc from pt requesting a new referral for neurologist states don't want to be seen by Dr Linton Please contact pt at [phone] Please see above message. Thanks * Telephone Encounter - Mario Saldivar - 11/21/2022 2:42 PM EST Tc from pt requesting a new referral for neurologist states don't want to be seen by Dr Linton Please contact pt at [phone] documented in this encounter Plan of Treatment Upcoming Encounters Date Type Department Care Team ([facility] st Contact Info) Description 11/15/2024 9:15 AM EST Office Visit [facility] MED & PEDS [address] [place] [address] Diann Ramirez MD [address] [place] [address] 11/16/2024 3:45 PM EST Office Visit [facility] MED & PEDS [address] [place] [address] Diann Ramirez MD [address] [place] [address] 12/20/2024 2:00 PM EST Telemedicine [facility] [address] [place] [address] Naomi Reyes RN [address] [place] [address] documented as of this encounter Visit Diagnoses Diagnosis Chronic cluster headache, not intractable- Primary documented in this encounter Additional Health Concerns Assessment Noted Time PHQ-9 Depression Total Score: 1 10/31/19 23 3:59 PM EST documented as of this encounter Care Teams Fashion Marketer Relationship Specialty Start Date End Date Diann Ramirez MD [address] [place] [address] PCP - General Internal Medicine 07/16/12 documented as of this encounter
--- OUTSIDE RECORDS SUMMARY | 2024-11-13 11:42 | XMS_ITS | Encounter Summary ---
Author Organization [employer] Address 75 [facility] 7 [place] [address] Care Team Providers Care Word Processor Operator Name Role Phone Diann Ramirez MD Primary Care Provider [phone] Reason for Visit * Reason Onset Date Comments Appointment Request 06/17/2024 Encounter Details Date Type Department Care Team ([facility] st Contact Info) Description 06/17/2024 Telephone [facility] MEDICINE [address] [place] [address] Diann Ramirez MD [address] [place] [address] Appointment Request Social History Tobacco Use Types [...] * Telephone Encounter - Long Jonas - 06/17/2024 8:39 AM EDT Tc from patient calling to cancel appt for 06/17 and would like a sooner appt than what physician underwriter offered documented in this encounter Plan of Treatment Upcoming Encounters Date Type Department Care Team (Late st Contact Info) Description 11/15/2024 9:15 AM EST Office Visit [facility] MED & PEDS [address] [place] [address] Diann Ramirez MD [address] [place] [address] 11/16/2024 3:45 PM EST Office Visit [facility] MED & PEDS [address] [place] [address] Diann Ramirez MD [address] [place] [address] 12/20/2024 2:00 PM EST Telemedicine [facility] MED & PEDS [address] [place] [address] Naomi Reyes RN [address] [place] [address] documented as of this encounter Visit Diagnoses Not on filedocumented in this encounter Additional Health Concerns Assessment Noted Time PHQ-9 Depression Total Score: 4 03/20/20 24 9:12 AM EDT documented as of this encounter Care Teams Word Processor Operator Relationship Specialty Start Date End Date Diann Ramirez MD [address] [place] [address] PCP - General Internal Medicine 07/16/12 documented as of this encounter
--- OUTSIDE RECORDS SUMMARY | 2024-11-13 11:42 | XMS_ITS | Encounter Summary ---
Author Organization [employer] Address 75 [facility] 7 [place] [address] Care Team Providers Care Azure Architect Name Role Phone Diann Ramirez MD Primary Care Provider [phone] Reason for Visit * Reason Onset Date Comments Referral 08/09/2024 Encounter Details Date Type Department Care Team (Late st Contact Info) Description 08/09/2024 Telephone [facility] MEDICINE [address] [place] [address] Diann Ramirez MD [address] [place], [place] [phone] Referral Social History Tobacco Use Types Packs/Day [...] encounter Miscellaneous Notes * Telephone Encounter - Shanna Jimenez RN - 08/14/2024 12:07 PM EDT Trivopt message informing pt referral for Neuro was sent to [facility] and pt should get a call fromtheir office for scheduling. Also in regards to GI referral, PCP did not place and would need to know if request was for a routine matter or an issue pt is having. * Telephone Encounter - Long Jonas - 08/09/2024 2:47 PM EDT Tc from patient calling to request the status of the referrals for ENT and Gastro that was talked about in last visit documented in this encounter Plan of Treatment Upcoming Encounters Date Type Department Care Team (Late st Contact Info) Description 11/15/2024 9:15 AM EST Office Visit [facility] MED & PEDS [address] [place] [address] Dainn Ramirez MD [address] [place] [address] 11/16/2024 3:45 PM EST Office Visit [facility] MED [facility] PEDS [address] [place] [address] Diann Ramirez MD [address] [place] [address] 12/20/2024 2:00 PM EST Telemedicine [facility] PEDS [address] [place] [address] Naomi Reyes RN [address] [place] [address] documented as of this encounter Visit Diagnoses Not on filedocumented in this encounter Additional Health Concerns Assessment Noted Time PHQ-9 Depression Total Score: 4 03/20/20 24 9:12 AM EDT documented as of this encounter Care Teams Azure Architect Relationship Specialty Start Date End Date Diann Ramirez MD [address] [place] [address] PCP - General Internal Medicine 07/16/12 documented as of this encounter
--- OUTSIDE RECORDS SUMMARY | 2024-11-13 11:42 | XMS_ITS | Encounter Summary ---
Author Organization [employer] Address 75 [facility] 7 [place] [address] Care Team Providers Care Mounting Machine Operator Name Role Phone Diann Ramirez MD Primary Care Provider [phone] Reason for Visit * Reason Onset Date Comments Med Refill 07/01/2024 Encounter Details Date Type Department Care Team (Late st Contact Info) Description 07/01/[address] [facility] MEDICINE [address] [place] [address] Diann Ramirez MD [address] [place] [address] Med Refill Social History Tobacco Use Types [...] * Telephone Encounter - Juan King - 07/01/2024 8:24 AM EDT Tc from pt requesting a refill for LORazepam (Ativan) 1 MG tablet documented in this encounter Plan of Treatment Upcoming Encounters Date Type Department Care Team (Late st Contact Info) Description 11/15/2024 9:15 AM EST Office Visit [facility] MED & PEDS [address] [place] [address] Diann Ramirez MD [address] [place] [address] 11/16/2024 3:45 PM EST Office Visit [facility] MED & PEDS [address] [place] [address] Diann Ramirez MD [address] [place] [address] 12/20/2024 2:00 PM EST Telemedicine [facility] MED [facility] PEDS [address] [place] [address] Naomi Reyes RN [address] [place] [address] documented as of this encounter Visit Diagnoses Not on filedocumented in this encounter Additional Health Concerns Assessment Noted Time PHQ-9 Depression Total Score: 4 03/20/20 24 9:12 AM EDT documented as of this encounter Care Teams Mounting Machine Operator Relationship Specialty Start Date End Date Diann Ramirez MD [address] [place] [address] PCP - General Internal Medicine 07/16/12 documented as of this encounter
--- OUTSIDE RECORDS SUMMARY | 2024-11-13 11:42 | XMS_ITS | Encounter Summary ---
Author Organization [employer] Address 75 [facility] 7t [place] [address] Care Team Providers Care Senior Sales Operations Manager Name Role Phone Diann Ramirez MD Primary Care Provider [phone]- [phone] Encounter Details Date Type Department Care Team (Late Contact Info) Description 10/18/2022 Orders Only [facility] MEDICINE [address] [place], [place] [phone] Diann Ramirez MD [address] [place], [place] [phone] Acute cough; Bronchospasm Social History Tobacco Use Types Packs/Day Years Used Date Smoking Tobacco: Never Smokeless Tobacco: Never Sex and Gender Information Value Date Recorded [...] suspected to have Coronavirus/COVID-19? No / Unsure 10/18/2022 2:09 PM EST documented as of this encounter Plan of Treatment Upcoming Encounters Date Type Department Care Team (Late st Contact Info) Description 11/15/2024 9:15 AM EST Office Visit [facility]S [address] [place], [place] [phone] Diann Ramirez MD [address] [place], [place] [phone] 11/16/2024 3:45 PM EST Office Visit [facility] MED & PEDS [address] [place] [address] Dainn Ramirez MD [address] [place] [address] 12/20/2024 2:00 PM EST Telemedicine [facility] MED & PEDS [address] [place] [address] Naomi Reyes, TABATHA [address] [place] [address] documented as of this encounter Visit Diagnoses Diagnosis Acute cough Bronchospasm Acute bronchospasm documented in this encounter Care Teams Senior Sales Operations Manager Relationship Specialty Start Date End Date Diann Ramirez MD [address] [place] [address] PCP - General Internal Medicine 07/16/12 documented as of this encounter
--- OUTSIDE RECORDS SUMMARY | 2024-11-13 11:42 | XMS_ITS | Encounter Summary ---
Author Organization [employer] Address 75 [facility] 7 [place] [address] Care Team Providers Care Scrap Baller Name Role Phone Diann Ramirez MD Primary Care Provider [phone] Reason for Visit * Reason Onset Date Comments Med Refill 03/18/2023 Encounter Details Date Type Department Care Team (Late st Contact Info) Description 03/18/2023 Telephone [facility] MEDICINE [address] [place] [address] Diann Ramirez MD [address] [place], [place] [phone] Med Refill Social History Tobacco Use Types [...] suspected to have Coronavirus/COVID-19? No / Unsure 03/19/2023 3:11 PM EDT documented as of this encounter Miscellaneous Notes * Telephone Encounter - Juna King - 03/18/2023 9:08 AM EDT Tc from pt requesting a med refill for lorazepam 1 mg documented in this encounter Plan of Treatment Upcoming Encounters Date Type Department Care Team (Late st Contact Info) Description 11/15/2024 9:15 AM EST Office Visit [facility] MED & PEDS [address] [place] [address] Diann Ramirez MD [address] [place] [address] 11/16/2024 3:45 PM EST Office Visit [facility] MED [facility] PED[facility] [address] [place] [address] Diann Ramirez MD [address] [place] [address] 12/20/2024 2:00 PM EST Telemedicine [facility] P[facility] [address] [place] [address] Naomi Reyes, TABATHA [address] [place] [address] documented as of this encounter Visit Diagnoses Not on filedocumented in this encounter Additional Health Concerns Assessment Noted Time PHQ-9 Depression Total Score: 1 10/31/19 23 3:59 PM EST documented as of this encounter Care Teams Scrap Baller Relationship Specialty Start Date End Date Diann Ramirez MD [address] [place] [address] PCP - General Internal Medicine 07/16/12 documented as of this encounter
--- OUTSIDE RECORDS SUMMARY | 2024-11-13 11:42 | XMS_ITS | Encounter Summary ---
Author Organization [employer] Address 75 [facility] 7 [place] [address] Care Team Providers Care Lunch Truck Driver Name Role Phone Diann Ramirez MD Primary Care Provider [phone] Reason for Visit * Reason Onset Date Comments Appointment Request 04/28/2024 Encounter Details Date Type Department Care Team (Late st Contact Info) Description 04/28/2024 Telephone [facility] MEDICINE [address] [place] [address] Diann Ramirez MD [address] [place] [address] Appointment Request Social History Tobacco Use Types [...] encounter Miscellaneous Notes * Telephone Encounter - Shahriarakila Paez - 04/28/2024 10:04 AM EDT Tc from pt calling to inform he won't be able to make it today's CAR CHECKER visit due to not feeling well and is requesting to reschedule. Please contact pt at [phone]. documented in this encounter Plan of Treatment Upcoming Encounters Date Type Department Care Team (Late st Contact Info) Description 11/15/2024 9:15 AM EST Office Visit [facility] MED & PEDS [address] [place] [address] Diann Ramirez MD [address] [place] [address] 11/16/2024 3:45 PM EST Office Visit [facility] PED[facility] [address] [place] [address] Diann Ramirez MD [address] [place] [address] 12/20/2024 2:00 PM EST Telemedicine [facility] MED [facility] PED[facility] [address] [place] [address] Naomi Reyes RN [address] [place] [address] documented as of this encounter Visit Diagnoses Not on filedocumented in this encounter Additional Health Concerns Assessment Noted Time PHQ-9 Depression Total Score: 4 03/20/20 24 9:12 AM EDT documented as of this encounter Care Teams Lunch Truck Driver Relationship Specialty Start Date End Date Diann Ramirez MD [address] [place] [place] [address] PCP - General Internal Medicine 07/16/12 documented as of this encounter
--- OUTSIDE RECORDS SUMMARY | 2024-11-13 11:42 | XMS_ITS | Encounter Summary ---
Author Organization [employer] Address 75 [facility] 7t [place] [address] Care Team Providers Care Shank Threader Name Role Phone Diann Ramirez MD Primary Care Provider [phone] Encounter Details Date Type Department Care Team (Late st Contact Info) Description 10/01/2024 Orders Only [facility]S [address] [place], [place] [phone] Diann Ramirez MD [address] [place] [address] Hiatal hernia (Primary Dx) Social History Tobacco Use Types [...] [facility] [address] [place] [address] Diann Ramirez MD [address] [place] [address] 11/16/2024 3:45 PM EST Office Visit [facility] MED & PEDS [address] [place] [address] Diann Ramirez MD [address] [place] [address] 12/20/2024 2:00 PM EST Telemedicine [facility] MED & PEDS [address] [place] [address] Naomi Reyes, TABATHA [address] [place] [address] documented as of this encounter Visit Diagnoses Diagnosis Hiatal hernia- Primary Diaphragmatic hernia without mention of obstruction or gangrene documented in this encounter Additional Health Concerns Assessment Noted Time PHQ-9 Depression Total Score: 4 03/20/20 24 9:12 AM EDT documented as of this encounter Care Teams Shank Threader Relationship Specialty Start Date End Date Diann Ramirez MD [address] [place] [address] PCP - General Internal Medicine 07/16/12 documented as of this encounter
--- OUTSIDE RECORDS SUMMARY | 2024-11-13 11:42 | XMS_ITS | Encounter Summary ---
Author Organization [employer] Address [address] [facility] 7 [place] [address] Care Team Providers Care Battery Container Tester Aluminum Name Role Phone Diann Ramirez MD Primary Care Provider +1 [phone] Reason for Visit * Reason Onset Date Comments Med Refill 10/27/2024 Encounter Details Date Type Department Care Team ([facility] st Contact Info) Description 10/27/2024 Refill [facility] MED & PEDS [address] [place] [address] Diann Ramirez MD [address] [place] [address] Anxiety Social History Tobacco Use Types Packs/Day Years [...] encounter Miscellaneous Notes * Telephone Encounter - Josselin Cerda - 10/27/2024 9:44 AM EST TC from pt requesting medication refill. Medications needing refill : LORazepam (Ativan) 1 MG tablet To be sent to: [id number] - [place], [place] - [address] [facility] [place] [facility] documented in this encounter Plan of Treatment Upcoming Encounters Date Type Department Care Team (Late st Contact Info) Description 11/15/2024 9:15 AM EST Office Visit [facility] MED & PEDS [address] [place] [address] Diann Ramirez MD [address] [place] [address] 11/16/2024 3:45 PM EST Office Visit [facility] MED & PEDS [address] [place] [address] Diann Ramirez MD [address] [place] [address] 12/20/2024 2:00 PM EST Telemedicine [facility] MED & PEDS [address] [place] [address] Naomi Reyes, TABATHA [address] [place] [address] documented as of this encounter Visit Diagnoses Diagnosis Anxiety Anxiety state, unspecified documented in this encounter Additional Health Concerns Assessment Noted Time PHQ-9 Depression Total Score: 4 03/20/20 24 9:12 AM EDT documented as of this encounter Care Teams Battery Container Tester Aluminum Relationship Specialty Start Date End Date Diann Ramirez MD [address] [place] [address] PCP - General Internal Medicine 07/16/12 documented as of this encounter
--- OUTSIDE RECORDS SUMMARY | 2024-11-13 11:43 | XMS_ITS | Encounter Summary ---
Author Organization [email or web address] Address [address] [facility] 7 [place] [address] Care Team Providers Care Internet Sales Representative Name Role Phone Diann Ramirez MD Primary Care Provider [phone]- [phone] Reason for Visit * Reason Onset Date Comments Appointment Request 01/13/2024 Encounter Details Date Type Department Care Team (Late st Contact Info) Description 01/13/2024 Telephone [facility] [address] [place] [address] Diann Ramirez MD [address] [place] [address] Appointment Request Social History Tobacco Use Types [...] * Telephone Encounter - Long Jonas - 01/13/2024 4:31 PM EDT Tc from patient call to cancel and would like a call back to reschedule documented in this encounter Plan of Treatment Upcoming Encounters Date Type Department Care Team (Late st Contact Info) Description 11/15/2024 9:15 AM EST Office Visit [facility] MED & PEDS [address] [place] [address] Diann Ramirez MD [address] [place] [address] 11/16/2024 3:45 PM EST Office Visit [facility] MED & PEDS [address] [place] [address] Diann Ramirez MD [address] [place] [address] 12/20/2024 2:00 PM EST Telemedicine [facility] MED & PEDS [address] [place] [address] Naomi Reyes RN [address] [place] [address] documented as of this encounter Visit Diagnoses Not on filedocumented in this encounter Additional Health Concerns Assessment Noted Time PHQ-9 Depression Total Score: 1 10/31/19 23 3:59 PM EST documented as of this encounter Care Teams Internet Sales Representative Relationship Specialty Start Date End Date Diann Ramirez MD [address] [place] [address] PCP - General Internal Medicine 07/16/12 documented as of this encounter
--- OUTSIDE RECORDS SUMMARY | 2024-11-13 11:43 | XMS_ITS | Encounter Summary ---
Author Organization [employer] Address 75 [facility] 7 [place] [address] Care Team Providers Care Refrigerator Tester Name Role Phone Diann Ramirez MD Primary Care Provider +1 [phone] Reason for Visit * Reason Onset Date Comments Med Refill 10/25/2022 Encounter Details Date Type Department Care Team (Late st Contact Info) Description 10/25/2022 Telephone [facility] MEDICINE [address] [place], [place] [phone] Diann Ramirez MD [address] [place], [place] [phone] Med Refill Social History Tobacco Use Types [...] * Telephone Encounter - Juan King - 10/25/2022 10:23 AM EST Tc from pt requesting med refill for lorazepam 1 mg. Please contact at [phone] documented in this encounter Plan of Treatment Upcoming Encounters Date Type Department Care Team (Late st Contact Info) Description 11/15/2024 9:15 AM EST Office Visit [facility] MED & PEDS [address] [place] [address] Diann Ramirez MD [address] [place] [address] 11/16/2024 3:45 PM EST Office Visit [facility] MED [facility] PEDS [address] [place] [address] Diann Ramirez MD 505 [place] [address] 12/20/2024 2:00 PM EST Telemedicine [facility] MED [facility] PEDS [address] [place] [address] Naomi Reyes RN 505 [place] [address] documented as of this encounter Visit Diagnoses Not on filedocumented in this encounter Care Teams Refrigerator Tester Relationship Specialty Start Date End Date Diann Ramirez MD [address] [place] [address] [place] [address] PCP - General Internal Medicine 07/16/12 documented as of this encounter
[2024-11-13 12:57] VITALS: BP 132/72; PULSE 68; RESP 16; TEMP 37; O2SAT 97
== END 2024-11-13 12:58 | disposition home or self-care (01) ==
PROVIDERS: Emergency Provider Emergency Medicine
DX: S82.892A Other fracture of left lower leg, initial encounter for closed fracture (principal); W00.0XXA Fall on same level due to ice and snow, initial encounter; Y93.9 Activity, unspecified; Y92.9 Unspecified place or not applicable; Y99.9 Unspecified external cause status
CPT/HCPCS: 29515; 99282; 99283

== ENCOUNTER 2024-11-15 12:41 | Outpatient (AMB) | payer MEDICAID, SELFPAY ==
--- NOTE | 2024-11-15 12:44 | A.OFFVIS_ITS ---
Vital Signs 11/15/24 13:06 Height 5 ft 10 in Weight 240 lb BMI 34.4 Intake Visit Reasons: FC- LT ankle fx, Achilles injury DOI 11/11/24 Intake Note: Luc is a 44 year old male who presents today with mom for an ER follow up of left ankle fx, DOI 11/11/24. Patient reports he slipped and felt his ankle twist. He is having a lot of pain all over his foot and ankle. Patient mentions that his has fracture blisters on his davidson. Having off and on numbness and tingling in his toes since injury. Allergies No Known Allergies Allergy (Verified 11/15/24 13:03) HPI HPI FC- LT ankle fx, Achilles injury DOI 11/11/24: Details: 44-year-old gentleman presents to the office today for an injury he sustained to his left ankle on 11/11/2024. He states he was walking when he slipped on ice and fell injuring the left ankle. He was seen in the emergency department where x-rays were obtained which were significant for a minimally displaced distal fibular fracture. There was also concern for Achilles tendon injury. He was placed in a posterior splint and referred to our office for ortho eval. On 11/13/24 he returned to the emergency department with concerns of increased swelling along with decreased sensation. Was concerned for compartment syndrome however this was ruled out in the emergency department. 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 Gender identity: Male Review of Systems Const All systems reviewed & are unremarkable except as noted in HPI and below Physical Exam Vital Signs: BMI result Body Mass Index 34.4 Const General: cooperative, healthy appearing, comfortable, no acute distress, well developed and alert Orientation/consciousness: patient oriented x3 HEENT Head: Yes normal to inspection, Yes normocephalic and Yes atraumatic Eyes General: appearance normal, both eyes and all related structures Neck Neck: Yes normal visual inspection and Yes no lymphadenopathy Resp Effort & Inspection: normal respiratory effort and able to speak in complete sentences Cardio Rate: regular rate Peripheral pulses: Peripheral pulses 2+ throughout GI Inspection: Yes normal to inspection Palpation (GI): Soft to palpation Skin General skin exam: no rashes or lesions noted Neuro General: patient oriented x3 Extrem Other: Left ankle normal to inspection with diffuse swelling and ecchymosis. He does have a fracture blister over the anterior portion of the davidson. Negative Isabel's. No notable deformity. Neurovascularly intact. Psych Appearance: grossly normal Mental Status: mental status grossly normal Office Procedures Casting/Splints 53253-Orgqh Leg splint application Procedure code (CPT) selection complete Results Reviewed Results Reviewed: Xrays were obtained in the office today and personally reviewed by me show distal fibular fracture Assessment & Plan Assessment & Plan (1) Closed left ankle fracture: Code(s): S82.892A - Other fracture of left lower leg, initial encounter for closed fracture Category: Medical Plan: I discussed the case with Dr. Randolph. I discussed the extent of the injury to the patient and options available. Given the extent of the fracture pattern and high risk of further displacement, it is recommended that we surgically fix this to help with stability and restoring anatomy. I explained to the patient the procedure in detail along with the risks benefits and alternatives. Risks including but not limited to infection, wound breakdown, stiffness, on going pain, nonunion or malunion, and possible complications with hardware. He does understand all this and would like to proceed with open reduction internal fixation of the left ankle with Dr. Randolph. he will be booked accordingly. He was given a prescription for Celebrex to help with his discomfort. Stressed the importance of avoiding opiate medication prior to surgery. Orders: Orders XR ankle LT min 3V Today M25.572 - Pain in left ankle and joints of left foot Coding Level of Care Code New Pt Level 4 (93535) Complex EM visit Add On G2211 Diagnoses Closed left ankle fracture S82.892A CPT Codes Splint - CPT: 51759-Nhwhp Leg splint application ([id number])
[2024-11-15 13:06] VITALS: BMI 34.4
--- OUTSIDE RECORDS SUMMARY | 2024-11-15 17:19 | XMS_ITS | Encounter Summary ---
Author Organization [employer] Address 75 [facility] 7 [place] [address] Care Team Providers Care Molding Supervisor Name Role Phone Diann Ramirez MD Primary Care Provider [phone] Reason for Visit * Reason Onset Date Comments Appointment Request 08/04/2024 Encounter Details Date Type Department Care Team ([facility] st Contact Info) Description 08/04/2024 Telephone [facility] MEDICINE [address] [place] [address] Diann Ramirez MD [address] [place] [address] Appointment Request Social History Tobacco Use Types [...] encounter Miscellaneous Notes * Telephone Encounter - Jamesrohit Fernando - 08/04/2024 2:04 PM EDT Tc from pt requesting to r/s ORACLE DATA WAREHOUSE DEVELOPER RN appt scheduled for today, appt has been cancelled. Please contact at [phone] documented in this encounter Plan of Treatment Upcoming Encounters Date Type Department Care Team (Late st Contact Info) Description 11/16/2024 3:45 PM EST Office Visit [facility] MED & PEDS [address] [place] [address] Diann Ramirez MD [address] [place] [address] 12/20/2024 2:00 PM EST Telemedicine [facility] MED & PEDS [address] [place] [address] Naomi Reyes RN 505 [place] [address] 02/15/2025 1:30 PM EDT Office Visit [facility] MED & PEDS [address] [place] [address] Diann Ramirez MD [address] [place] [address] documented as of this encounter Visit Diagnoses Not on filedocumented in this encounter Additional Health Concerns Assessment Noted Time PHQ-9 Depression Total Score: 4 03/20/20 24 9:12 AM EDT documented as of this encounter Care Teams Molding Supervisor Relationship Specialty Start Date End Date Diann Ramirez MD [address] [place] [address] PCP - General Internal Medicine 07/16/12 documented as of this encounter
--- OUTSIDE RECORDS SUMMARY | 2024-11-15 17:19 | XMS_ITS | Encounter Summary ---
Author Organization [employer] Address 75 [facility] 7 [place] [address] Care Team Providers Care Cvt Tech Name Role Phone Diann Ramirez MD Primary Care Provider [phone] Reason for Visit * Reason Onset Date Comments Referral 08/09/2024 Encounter Details Date Type Department Care Team (Late st Contact Info) Description 08/09/2024 Telephone [facility] MEDICINE [address] [place] [address] Diann Ramirez MD [address] [place], [place] [phone] Referral Social History Tobacco Use Types Packs/Day [...] Jimenez RN - 08/14/2024 12:07 PM EDT Zipnosist message informing pt referral for Neuro was sent to [facility] Neuro and pt should get a call [...] Description 11/16/2024 3:45 PM EST Office Visit [facility] MED & PEDS [address] [place] [address] Diann Ramirez MD [address] [place] [address] 12/20/2024 2:00 PM EST Telemedicine [facility] MED & PEDS [address] [place] [address] Naomi Reyes RN 505 [place] [address] 02/15/2025 1:30 PM EDT Office Visit [facility] MED [facility] PEDS [address] [place] [address] Diann Ramirez MD [address] [place] [address] documented as of this encounter Visit Diagnoses Not on filedocumented in this encounter Additional Health Concerns Assessment Noted Time PHQ-9 Depression Total Score: 4 03/20/20 24 9:12 AM EDT documented as of this encounter Care Teams Cvt Tech Relationship Specialty Start Date End Date Diann Ramirez MD [address] [place] [address] PCP - General Internal Medicine 07/16/12 documented as of this encounter
--- OUTSIDE RECORDS SUMMARY | 2024-11-15 17:20 | XMS_ITS | Encounter Summary ---
Author Organization [employer] Address 75 [facility] 7t [place] [address] Care Team Providers Care Disability Aide Name Role Phone Diann Ramirez MD Primary Care Provider +1 [phone] Encounter Details Date Type Department Care Team (Late st Contact Info) Description 11/11/2024 Orders Only [facility] External Provider, [facility] Social History Tobacco Use Types Packs/Day Years [...] Description 11/16/2024 3:45 PM EST Office Visit [facility] MED & PEDS [address] [place] [address] Diann Ramirez MD [address] [place] [address] 12/20/2024 2:00 PM EST Telemedicine [facility] MED & PEDS [address] [place] [address] Naomi Reyes RN [address] [place] [address] 02/15/2025 1:30 PM EDT Office Visit [facility] MED & PEDS [address] [place] [address] Diann Ramirez MD [address] [place] [address] documented as of this encounter Procedures Procedure Name Priority Date/Time Associated Diagnosis Comments XR ANKLE 3+ VIEWS LEFT Routine 11/15/2024 1:17 PM EST XR ANKLE 3+ VIEWS LEFT Routine 11/11/2024 10:45 AM EST XR TIBIA FIBULA 2 VIEWS LEFT Routine 11/11/2024 10:45 AM EST documented in this encounter Results * XR Ankle 3+ Views Left (11/15/2024 1:17 PM EST) Anatomical Region Laterality Modality Lower Extremities, Ankle Left Radiogr aphic Imaging 11/15/2024 1:17 PM EST Narrative 11/15/2024 3:30 PM EST ? [facility] ? [address] ?[place] [address] ?XRay Report ? Signed ? Patient: Stopa,Luc J ?MR#: [id number] ?? 78 ? : 1980 ?Acct:[id number] ? Age/Sex: 44 / M ?ADM Date: 11/15/24 ? Loc: HO.HOSX ? Attending Dr: Shreya Whelan PA-C ? Ordering Physician: Shreya Whelan PA-C ?? Date of Service: 11/15/24 ?? Procedure(s): XR ankle LT min 3V ?? Accession Number(s): [id number] ? cc: Diann Ramirez MD; Shreya Whelan PA-C ? EXAMINATION: ??XR ANKLE 3 OR MORE VIEWS LEFT ? HISTORY: M25.572 - Pain in left ankle and joints of left foot ? COMPARISON: Comparison is made with the prior examination dated ?? 11/11/2024. ? FINDINGS: ? Three views of the left ankle are submitted. ??Osseous mineralization is ?? normal. ??Again seen is a mildly displaced oblique fracture of the ?? distal fibula. No significant callus formation is noted. ??The joint ?? spaces are preserved. ??The soft tissues are unremarkable. ? XR/XR ankle LT min 3V ?? IMPRESSION: ? Mildly displaced oblique fracture of the distal fibula without change. ? Electronically signed by: ??Jovany Arambula MD ??11/15/2024 03:27 PM EST ? Dictated By: ?Jovany Arambula MD ? Signed By: ?<Electronically signed by Jovany Arambula MD in OV> ?11/15/24 1527 ? DD/ 1317 ? TD/TT: 11/15/24 1320 ? Insulation Worker Apprentice: ? Procedure Note Kateryna, Image - 11/15/2024 [facility] [address] [place] [address] [address] [place] [address] XRay Report Signed Patient: Luc Erickson R#: [id number] 78 : 1980Acct:[id number] Age/Sex: 44 / MADM Date: 11/15/24 Loc: IAN Attending Dr: Shreya Whelan PA-C Ordering Physician: Shreya Whelan PA-C Date of Service: 11/15/24 Procedure(s): XR ankle LT min 3V Accession Number(s): [id number] cc: Diann Ramirez MD; Shreya Whelan PA-C EXAMINATION: XR ANKLE 3 OR MORE VIEWS LEFT HISTORY: M25.572 - Pain in left ankle and joints of left foot COMPARISON: Comparison is made with the prior examination dated 11/11/2024. FINDINGS: Three views of the left ankle are submitted. Osseous mineralization is normal. Again seen is a mildly displaced oblique fracture of the distal fibula. No significant callus formation is noted. The joint spaces are preserved. The soft tissues are unremarkable. XR/XR ankle LT min 3V IMPRESSION: Mildly displaced oblique fracture of the distal fibula without change. Electronically signed by: Jovany Arambula MD 11/15/2024 03:27 PM EST RP Dictated By: Jovany Arambula MD Signed By: <Electronically signed by Jovany Arambula MD in OV> 11/15/24 1527 DD/ 1317 TD/TT: 11/15/24 1320 Insulation Worker Apprentice: [facility] External Provider IMG XR PROCEDURES Final Result * XR Tibia Fibula 2 Views Left (11/11/2024 10:45 AM EST) Anatomical Region Laterality Modality Lower Extremities, Lower Leg Left Rad iographic Imaging 11/11/2024 10:4 5 AM EST Narrative 11/11/2024 11:32 AM EST ? [facility] ?[address] ?[place] [address] ?XRay Report ? Signed ? Patient: Stopa,Luc J ?MR#: [id number] ?? 78 ? : 1980 ?Acct:[id number] ? Age/Sex: 44 / M ?ADM Date: 01/23/25 ? Loc: HO.ED ? Attending Dr: ? Ordering Physician: Generic ED Physician ?? Date of Service: 11/11/24 ?? Procedure(s): XR tibia fibula LT 2V ?? Accession Number(s): [id number] ? cc: Diann Ramirez MD; Generic ED [...] DD/ 1045 ? TD/TT: 11/11/24 1100 ? Insulation Worker Apprentice: MSM ? Procedure Note Donoracioter, Image - 11/11/2024 [place] [address] XRay Report Signed Patient: Luc Erickson JMR#: [id number] [birth year] : 1980Acct:[id number] Age/Sex: 44 / MADM Date: 11/11/24 Loc: HO.ED Attending Dr: Ordering Physician: Generic ED Physician Date of Service: 11/11/24 Procedure(s): XR tibia fibula LT 2V Accession Number(s): [id number] cc: Diann Ramirez MD; Generic ED Physician [...] 11/11/24 1129 DD/ 1045 TD/TT: 11/11/24 1100 Insulation Worker Apprentice: MSM [facility] External Provider IMG XR PROCEDURES Final Result * XR Ankle 3+ Views Left (11/11/2024 10:45 AM EST) Anatomical Region Laterality Modality Lower Extremities, Ankle Left Radiogr aphic Imaging 11/11/2024 10:4 5 AM EST Narrative 11/11/2024 11:32 AM EST ? [facility] ?[address] ?[place] [address] ?XRay Report ? Signed ? Patient: DreLuc ?MR#: [id number] ?? 78 ? : 1980 ?Acct:[id number] ? Age/Sex: 44 / M ?ADM Date: 11/11/24 ? Loc: HO.ED ? Attending Dr: ? Ordering Physician: Generic ED Physician ?? Date of Service: 11/11/24 ?? Procedure(s): XR ankle LT min 3V ?? Accession Number(s): [id number] ? cc: Diann Ramirez MD; Generic ED [...] Signed By: ?<Electronically signed by Livan S Leela, MD in OV> ?11/11/24 1129 ? DD/ 1045 ? TD/TT: 11/11/24 1100 ? Insulation Worker Apprentice: MSM ? Procedure Note Donotuseinterpreter, Image - 11/11/[address] [address] XRay Report Signed Patient: Luc Erickson JMR#: [id number] [birth year] : 1980Acct:[id number] Age/Sex: 44 / MADM Date: 11/11/24 Loc: HO.ED Attending Dr: Ordering Physician: Generic ED Physician Date of Service: 11/11/24 Procedure(s): XR ankle LT min 3V Accession Number(s): [id number] cc: Diann Ramirez MD; Generic ED Physician [...] by: Livan Swenson MD 11/11/2024 11:29 AM [facility] Dictated By: Livan Swenson MD Signed By: <Electronically signed by Livan Swenson MD in OV> 11/11/24 1129 DD/ 1045 TD/TT: 11/11/24 1100 Insulation Worker Apprentice: [facility] External Provider IMG XR PROCEDURES Final Result documented in this encounter Visit Diagnoses Not on filedocumented in this encounter Additional Health Concerns Assessment Noted Time PHQ-9 Depression Total Score: 4 03/20/20 24 9:12 AM EDT documented as of this encounter Care Teams Disability Aide Relationship Specialty Start Date End Date Diann Ramirez MD [address] [place] [address] PCP - General Internal Medicine 07/16/12 documented as of this encounter
--- OUTSIDE RECORDS SUMMARY | 2024-11-15 17:20 | XMS_ITS | Encounter Summary ---
Author Organization [employer] Address 75 [facility] 7 [place] [address] Care Team Providers Care Cartography Teacher Name Role Phone Diann Ramirez MD Primary Care Provider +1 [phone] Reason for Visit * Reason Onset Date Comments Med Refill 03/18/2023 Encounter Details Date Type Department Care Team (Late st Contact Info) Description 03/18/2023 Telephone [facility] MEDICINE [address] [place] [address] Diann Ramirez MD [address] [place], [place] [phone] Med Refill Social History Tobacco Use Types [...] * Telephone Encounter - Juan King - 03/18/2023 9:08 AM EDT Tc from pt requesting a med refill for lorazepam 1 mg documented in this encounter Plan of Treatment Upcoming Encounters Date Type Department Care Team (Late st Contact Info) Description 11/16/2024 3:45 PM EST Office Visit [facility] MED & PEDS [address] [place] [address] Diann Ramirez MD [address] [place] [address] 12/20/2024 2:00 PM EST Telemedicine [facility]ED[facility] [address] [place] [address] Naomi Reyes RN [address] [place] [address] 02/15/2025 1:30 PM EDT Office Visit [facility] MED [facility] PEDS [address] [place] [address] Diann Ramirez MD [address] [place] [address] documented as of this encounter Visit Diagnoses Not on filedocumented in this encounter Additional Health Concerns Assessment Noted Time PHQ-9 Depression Total Score: 1 10/31/19 23 3:59 PM EST documented as of this encounter Care Teams Cartography Teacher Relationship Specialty Start Date End Date Diann Ramirez MD [address] [place] [address] PCP - General Internal Medicine 07/16/12 documented as of this encounter
--- OUTSIDE RECORDS SUMMARY | 2024-11-15 17:20 | XMS_ITS | Encounter Summary ---
Author Organization [employer] Address 75 [facility] 7 [place] [address] Care Team Providers Care Boring Mill Operator For Metal Name Role Phone Diann Ramirez MD Primary Care Provider +[phone] Reason for Visit * Reason Onset Date Comments Appointment Request 06/17/2024 Encounter Details Date Type Department Care Team ([facility] st Contact Info) Description 06/17/2024 Telephone [facility] MEDICINE [address] [place] [address] Diann Ramirez MD [address] [place] [address] Appointment Request Social History Tobacco Use Types [...] would like a sooner appt than what casualty underwriter offered documented in this encounter Plan of Treatment Upcoming Encounters Date Type Department Care Team (Late st Contact Info) Description 11/16/2024 3:45 PM EST Office Visit [facility] [address] [place] [address] Diann Ramirez MD [address] [place] [address] 12/20/2024 2:00 PM EST Telemedicine [facility] [address] [place] [address] Naomi Reyes RN 505 [place] [address] 02/15/2025 1:30 PM EDT Office Visit [facility] [address] [place] [address] Diann Ramirez MD [address] [place] [address] documented as of this encounter Visit Diagnoses Not on filedocumented in this encounter Additional Health Concerns Assessment Noted Time PHQ-9 Depression Total Score: 4 03/20/20 24 9:12 AM EDT documented as of this encounter Care Teams Boring Mill Operator For Metal Relationship Specialty Start Date End Date Diann Ramirez MD [address] [place] [address] PCP - General Internal Medicine 07/16/12 documented as of this encounter
--- OUTSIDE RECORDS SUMMARY | 2024-11-15 17:20 | XMS_ITS | Encounter Summary ---
Author Organization [employer] Address 75 [facility] 7 [place] [address] Care Team Providers Care Advanced Manufacturing Vice President Name Role Phone Diann Ramirez MD Primary Care Provider [phone] Reason for Visit * Reason Onset Date Comments Med Refill 10/27/2024 Encounter Details Date Type Department Care Team ([facility] st Contact Info) Description 10/27/[address] [facility]EDS [address] [place] [address] Diann Ramirez MD [address] [place] [address] Anxiety Social History Tobacco Use Types Packs/Day [...] 1 MG tablet To be sent to: [id number] - [place], [place] - 1 [facility] [place] [facility] documented in this encounter Plan of Treatment Upcoming Encounters Date Type Department Care Team (Late st Contact Info) Description 11/16/2024 3:45 PM EST Office Visit [facility] MED & PEDS [address] [place] [address] Diann Ramirez MD [address] [place] [address] 12/20/2024 2:00 PM EST Telemedicine [facility] MED & PEDS [address] [place] [address] Naomi Reyes, TABATHA 505 [place] [address] 02/15/2025 1:30 PM EDT Office Visit [facility] MED & PEDS [address] [place] [address] Diann Ramirez MD [address] [place] [address] documented as of this encounter Visit Diagnoses Diagnosis Anxiety Anxiety state, unspecified documented in this encounter Additional Health Concerns Assessment Noted Time PHQ-9 Depression Total Score: 4 03/20/20 24 9:12 AM EDT documented as of this encounter Care Teams Advanced Manufacturing Vice President Relationship Specialty Start Date End Date Diann Ramirez MD [address] [place] [address] PCP - General Internal Medicine 07/16/12 documented as of this encounter
--- OUTSIDE RECORDS SUMMARY | 2024-11-15 17:20 | XMS_ITS | Encounter Summary ---
Author Organization [employer] Address 75 [facility] 7 [place] [address] Care Team Providers Care Telemarketer Name Role Phone Diann Ramirez MD Primary Care Provider [phone] Reason for Visit * Reason Onset Date Comments Med Refill 07/01/2024 Encounter Details Date Type Department Care Team (Late st Contact Info) Description 07/01/2024 Telephone [facility] MEDICINE [address] [place] [address] Diann Ramirez MD [address] [place] [address] Med Refill Social History Tobacco Use Types [...] Description 11/16/2024 3:45 PM EST Office Visit [facility] MED & PEDS 505 [place] [address] Diann Ramirez MD [address] [place] [address] 12/20/2024 2:00 PM EST Telemedicine [facility] MED & PEDS [address] [place] [address] Naomi Reyes RN [address] [place] [address] 02/15/2025 1:30 PM EDT Office Visit [facility] MED & PEDS [address] [place] [address] Diann Ramirez MD [address] [place] [address] documented as of this encounter Visit Diagnoses Not on filedocumented in this encounter Additional Health Concerns Assessment Noted Time PHQ-9 Depression Total Score: 4 03/20/20 24 9:12 AM EDT documented as of this encounter Care Teams Telemarketer Relationship Specialty Start Date End Date Diann Ramirez MD [address] [place] [address] PCP - General Internal Medicine 07/16/12 documented as of this encounter
--- OUTSIDE RECORDS SUMMARY | 2024-11-15 17:20 | XMS_ITS | Encounter Summary ---
Author Organization [employer] Address 75 [facility] 7 [place] [address] Care Team Providers Care Central Supply Worker Name Role Phone Diann Ramirez MD Primary Care Provider [phone] Reason for Visit * Reason Onset Date Comments Med Refill 07/28/2024 Encounter Details Date Type Department Care Team (Late st Contact Info) Description 07/28/2024 Telephone [facility] MEDICINE [address] [place] [address] Diann Ramirez MD [address] [place], [place] [phone] Med Refill Social History Tobacco Use Types [...] 1 MG tablet To be sent to: [facility][id number] - [place], [place] - 1 [facility] documented in this encounter Plan of Treatment Upcoming Encounters Date Type Department Care Team (Late st Contact Info) Description 11/16/2024 3:45 PM EST Office Visit [facility] MED & PEDS [address] [place] [address] Diann Ramirez MD [address] [place] [address] 12/20/2024 2:00 PM EST Telemedicine [facility] MED [facility]ED[facility] [address] [place] [address] Naomi Reyes RN [address] [place] [address] 02/15/2025 1:30 PM EDT Office Visit [facility] [address] [place] [address] Diann Ramirez MD [address] [place] [address] documented as of this encounter Visit Diagnoses Not on filedocumented in this encounter Additional Health Concerns Assessment Noted Time PHQ-9 Depression Total Score: 4 03/20/20 24 9:12 AM EDT documented as of this encounter Care Teams Central Supply Worker Relationship Specialty Start Date End Date Diann Ramirez MD [address] [place] [address] PCP - General Internal Medicine 07/16/12 documented as of this encounter
--- OUTSIDE RECORDS SUMMARY | 2024-11-15 17:20 | XMS_ITS | Encounter Summary ---
Author Organization [employer] Address 75 [facility] 7t [place] [address] Care Team Providers Care Public Speaking Instructor Name Role Phone Diann Ramirez MD Primary Care Provider [phone] Encounter Details Date Type Department Care Team (Late st Contact Info) Description 10/01/2024 Orders Only [facility] MED & PEDS [address] [place], [place] [phone] Diann Ramirez MD [address] [place] [address] Hiatal hernia (Primary Dx) Social History Tobacco [...] Description 11/16/2024 3:45 PM EST Office Visit [facility] MED [facility] PEDS [address] [place] [address] Diann Ramirez MD [address] [place] [address] 12/20/2024 2:00 PM EST Telemedicine [facility] [address] [place] [address] Naomi Reyes, RN 505 [place] [address] 02/15/2025 1:30 PM EDT Office Visit [facility] [address] [place] [address] Diann Ramirez MD [address] [place] [address] documented as of this encounter Visit Diagnoses Diagnosis Hiatal hernia- Primary Diaphragmatic hernia without mention of obstruction or gangrene documented in this encounter Additional Health Concerns Assessment Noted Time PHQ-9 Depression Total Score: 4 03/20/20 24 9:12 AM EDT documented as of this encounter Care Teams Public Speaking Instructor Relationship Specialty Start Date End Date Diann Ramirez MD [address] [place] [address] PCP - General Internal Medicine 07/16/12 documented as of this encounter
--- OUTSIDE RECORDS SUMMARY | 2024-11-15 17:21 | XMS_ITS | Encounter Summary ---
Author Organization [employer] Address 75 [facility] 7 [place] [address] Care Team Providers Care Product Grader Name Role Phone Diann Ramirez MD Primary Care Provider [phone] Reason for Visit * Reason Onset Date Comments Med Refill 11/25/2022 Encounter Details Date Type Department Care Team (Late st Contact Info) Description 11/25/2022 Telephone [facility] MEDICINE [address] [place] [address] Diann Ramirez MD 505 [place] [address] Med Refill Social History Tobacco Use Types [...] PM EST Office Visit [facility] MED & PEDS [address] [place] [address] Diann Ramirez MD [address] [place] [address] 12/20/2024 2:00 PM EST Telemedicine [facility] MED & PEDS [address] [place] [address] Naomi Reyes RN 505 [place] [address] 02/15/2025 1:30 PM EDT Office Visit [facility] MED & PEDS [address] [place] [address] Diann Ramirez MD [address] [place] [address] documented as of this encounter Visit Diagnoses Not on filedocumented in this encounter Additional Health Concerns Assessment Noted Time PHQ-9 Depression Total Score: 1 10/31/19 23 3:59 PM EST documented as of this encounter Care Teams Product Grader Relationship Specialty Start Date End Date Diann Ramirez MD [address] [place] [address] PCP - General Internal Medicine 07/16/12 documented as of this encounter
--- OUTSIDE RECORDS SUMMARY | 2024-11-15 17:21 | XMS_ITS | Encounter Summary ---
Author Organization [employer] Address 75 [facility] 7 [place] [address] Care Team Providers Care Jewel Bearing Grinder Name Role Phone Diann Ramirez MD Primary Care Provider [phone] Reason for Visit * Reason Onset Date Comments Med Refill 10/25/2022 Encounter Details Date Type Department Care Team (Late st Contact Info) Description 10/25/2022 Telephone [facility] MEDICINE [address] [place], [place] [phone] Diann Ramirez MD [address] [place], [place] [phone] Med Refill Social History Tobacco Use Types [...] for lorazepam 1 mg. Please contact at [phone] documented in this encounter Plan of Treatment Upcoming Encounters Date Type Department Care Team (Late st Contact Info) Description 11/16/2024 3:45 PM EST Office Visit [facility] MED & PEDS [address] [place] [address] Diann Ramirez MD [address] [place] [address] 12/20/2024 2:00 PM EST Telemedicine [facility] MED & PEDS [address] [place] [address] Naomi Reyes RN [address] [place] [address] 02/15/2025 1:30 PM EDT Office Visit [facility] MED & PEDS [address] [place] [address] Diann Ramirez MD [address] [place] [address] documented as of this encounter Visit Diagnoses Not on filedocumented in this encounter Care Teams Jewel Bearing Grinder Relationship Specialty Start Date End Date Diann Ramirez MD [address] [place] [address] PCP - General Internal Medicine 07/16/12 documented as of this encounter
--- OUTSIDE RECORDS SUMMARY | 2024-11-15 17:21 | XMS_ITS | Encounter Summary ---
Author Organization [employer] Address 75 [facility] 7 [place] [address] Care Team Providers Care Casket Assembler Name Role Phone Diann Ramirez MD Primary Care Provider [phone] Reason for Visit * Reason Onset Date Comments Appointment Request 06/11/2024 Encounter Details Date Type Department Care Team ([facility] st Contact Info) Description 06/11/2024 Telephone [facility] MEDICINE [address] [place] [address] Diann Ramirez MD 505 [place] [address] Appointment Request Social History Tobacco Use Types [...] Tc from pt calling in regards to TUBE DRAW HELPER visit from 06/18 that was canceled and is requesting to reschedule. Please contact pt at [phone]. documented in this encounter Plan of Treatment Upcoming Encounters Date Type Department Care Team (Late st Contact Info) Description 11/16/2024 3:45 PM EST Office Visit [facility] MED & PEDS [address] [place] [address] Diann Ramirez MD 505 [place] [address] 12/20/2024 2:00 PM EST Telemedicine [facility] MED & PEDS [address] [place] [address] Naomi Reyes RN 505 [place] [address] 02/15/2025 1:30 PM EDT Office Visit [facility] MED & PEDS [address] [place] [address] Diann Ramirez MD 505 [place] [address] documented as of this encounter Visit Diagnoses Not on filedocumented in this encounter Additional Health Concerns Assessment Noted Time PHQ-9 Depression Total Score: 4 03/20/20 24 9:12 AM EDT documented as of this encounter Care Teams Casket Assembler Relationship Specialty Start Date End Date Diann Ramirez MD [address] [place] [address] PCP - General Internal Medicine 07/16/12 documented as of this encounter
--- OUTSIDE RECORDS SUMMARY | 2024-11-15 17:21 | XMS_ITS | Clinical Summary ---
Author Organization [employer] [facility] it[employer] Address [address] [place] [address] Care Team Providers Care Steamboat Captain Name Role Phone Unavailable Primary Care Provider [...]
--- OUTSIDE RECORDS SUMMARY | 2024-11-15 17:21 | XMS_ITS | Encounter Summary ---
Author Organization [employer] Address 75 [facility] 7 [place] [address] Care Team Providers Care Stunt Driver Name Role Phone Diann Ramirez MD Primary Care Provider [phone] Reason for Visit * Reason Comments Hypertension Encounter Details Date Type Department Care Team ([facility] st Contact Info) Description 11/15/2024 9:15 AM EST Office Visit [facility] PEDS [address] [place], [place] [phone] Diann Ramirez MD [address] [place] [address] Primary hypertension (Primary Dx); Other closed fracture of distal end of left fibula, initial encounter; Dietary counseling; Exercise counseling; Class 2 severe obesity due to excess calories with serious comorbidity and body mass index (BMI) of 35.0 to 35.9 in adult ([facility]) Social History Tobacco Use Types Packs/Day Years [...] before you got money to buy more: Sometimes True 2024 Within the past 12 months,th e food you bought just didn't last and you didn't have enough money to get more: Sometimes True 11/15/2024 Transportation Answer Date Recorded In the past 12 months, has l ack of transportation kept you from medical appts, meetings, work or from getting things needed for daily living? Yes, it has kept me from medical appointments or getting medications. 11/15/2024 Utilities Answer Date Recorded In the past 12 months, has t he electric, gas, oil or water company threatened to shut off services in your home? No 03/20/2024 Depression Answer Date Recorded Patient Health Questionnaire-2 Score 1 03/20/2024 Internet Access Answer Date Recorded Internet Access Q1 Yes 11/15/2024 Internet Access Q2 Not on file 11/15/2024 Sex and Gender Information Value Date Recorded Sex Assigned at Male 08/19/2022 10:22 AM EDT Legal Sex Male 10:22 AM EDT Gender Identity Male 08/19/2022 10:22 AM EDT Sexual Orientation Straight 08/19/2022 10 :22 AM EDT documented as of this encounter Last Filed Vital Signs Vital Sign Reading Time Taken Comments Blood Pressure 132/73 11/15/2024 9:27 AM EST Pulse 58 11/15/2024 9:27 AM EST Temperature 36.7 ??C (98 ??F) 11/15/2024 9:06 AM EST Respiratory Rate 20 11/15/2024 9:06 AM EST Oxygen Saturation 97% 11/15/2024 9:06 AM EST Inhaled Oxygen Concentration - - Weight 115 kg (253 lb) 11/15/2024 9:06 AM EST Height 180.3 cm (5' 11 ) 11/15/2024 9:06 AM EST Body Mass Index 35.29 11/15/2024 9:06 AM EST documented in this encounter Progress Notes * Diann Ramirez MD - 11/15/2024 9:15 AM EST Subjective Patient ID: Luc Erickson is a 44 y.o. male who presents for Hypertension. Hypertension This is a chronic problem. The problem has been gradually worsening since onset. Pertinent negatives include no anxiety, blurred vision, chest pain, headaches, malaise/fatigue, neck pain, orthopnea, palpitations, peripheral edema, PND, shortness of breath or sweats. Patient main concern today is his left ankle pain. He was seen at the emergency department on November 13, 2024 for follow-up of a left ankle pain after a fall due to a mechanical slip on ice on November 11, 2024. On November 11 he was found to have a distal fibula oblique fracture and Achilles tendon injury. The x-ray of the left ankle initially revealed the impression of mild medial malleolar fracture. During the visit on November 13 he expressed concern about compartment syndrome. The patient leg splint was reapplied and patient was found to be no role vascularly intact distally after application. He has a scheduled appointment this afternoon with an orthopedic surgeon. No reported fever or other constitutional symptoms. Only complaining of discomfort/pain of the leftankle. Patient Active Problem List Diagnosis ??? Generalized anxiety disorder ??? Obesity ??? COVID-19 ??? Episodic opioid dependence (CMS/HCC) ??? Hypertension ??? Vitamin D deficiency ??? Thrombocytopenia (CMS/HCC) ??? Other fatigue ??? Sinus bradycardia ??? Panic attacks ??? Hiatal hernia Review of Systems Constitutional: Negative for appetite change, chills, diaphoresis, fatigue and malaise/fatigue. Eyes: Negative for blurred vision. Respiratory: Negative for cough, choking, chest tightness and shortness of breath. Cardiovascular: Negative for chest pain, palpitations, orthopnea, leg swelling and PND. Musculoskeletal: Negative for neck pain. Neurological: Negative for headaches. Objective BP 132/73 (BP Location: Left arm, Patient Position: Sitting, BP Cuff Size: Adult) Pulse 58 Temp98 ??F (36.7 ??C) (Oral) Resp 20 Ht 5' 11 (1.803 m) Wt 253 lb (115 kg) SpO2 97% BMI 35.29 kg/m?? Physical Exam Constitutional: General: He is not in acute distress. Appearance: Normal appearance. He is not ill-appearing, toxic-appearing or diaphoretic. Pulmonary: Effort: Pulmonary effort is normal. Abdominal: Palpations: Abdomen is soft. Musculoskeletal: Left ankle: Tenderness present. Decreased range of motion. Comments: Swelling with some erythema noted on the distal third of the left lower extremity. Patient has a posterior cast in place and held by GEOFFREY bandage Neurological: Mental Status: He is alert. Assessment/Plan Diagnoses and all orders for this visit: Primary hypertension Comments: BP is at goal No change in medication DASH diet Other closed fracture of distal end of left fibula, initial encounter Comments: Has a scheduled appointment in 3 hours with Ortho no acute intervention from our side. Dietary counseling Exercise counseling Class 2 severe obesity due to excess calories with serious comorbidity and body mass index (BMI) of35.0 to 35.9 in adult ([facility]) Discussed calorie deficit, recommended reduction of 20-30% of maintenance calories; crawler tractor operator referral offered. Recommended to decrease soda and sugary beverage consumption. Recommended at least 20 g per meal of protein to assist with satiety. Recommended at least 150 min/week of moderate intensity exercise. documented in this encounter Plan of Treatment Upcoming Encounters Date Type Department Care Team (Late st Contact Info) Description 11/16/2024 3:45 PM EST Office Visit [facility] MED & PEDS [address] [place] [address] Diann Ramirez MD [address] [place] [address] 12/20/2024 2:00 PM EST Telemedicine [facility] MED & PEDS [address] [place] [address] Naomi Reyes, TABATHA 505 [place] [address] 02/15/2025 1:30 PM EDT Office Visit [facility] MED & PEDS [address] [place] [address] Diann Ramirez MD [address] [place] [address] documented as of this encounter Visit Diagnoses Diagnosis Primary hypertension- Primary Unspecified essential hypertension Other closed fracture of distal end of left fibula, initial encounter Dietary counseling Dietary surveillance and counseling Exercise counseling Class 2 severe obesity due to excess calories with serious comorbidity and body mass index (BMI) of 35.0 to 35.9 in adult ([facility]) documented in this encounter Additional Health Concerns Assessment Noted Time PHQ-9 Depression Total Score: 4 03/20/20 24 9:12 AM EDT documented as of this encounter Care Teams Stunt Driver Relationship Specialty Start Date End Date Diann Ramirez MD [address] [place] [address] PCP - General Internal Medicine 07/16/12 documented as of this encounter
--- OUTSIDE RECORDS SUMMARY | 2024-11-15 17:21 | XMS_ITS | Encounter Summary ---
Author Organization [employer] Address [address] [facility] [place] [address] Care Team Providers Care Utility Plant Operative Name Role Phone Diann Ramirez MD Primary Care Provider [phone] Encounter Details Date Type Department Care Team (Latest Contact Info) Description 11/15/2024 Travel Social History Tobacco Use Types Packs/Day Years [...] Description 11/16/2024 3:45 PM EST Office Visit [facility] MED & PEDS [address] [place] [address] Diann Ramirez MD [address] [place] [address] 12/20/2024 2:00 PM EST Telemedicine [facility] MED & PEDS [address] [place] [address] Naomi Reyes RN 505 [place] [address] 02/15/2025 1:30 PM EDT Office Visit [facility] MED & PEDS [address] [place] [address] Diann Ramirez MD [address] [place] [address] documented as of this encounter Visit Diagnoses Not on filedocumented in this encounter Additional Health Concerns Assessment Noted Time PHQ-9 Depression Total Score: 4 03/20/20 24 9:12 AM EDT documented as of this encounter Care Teams Utility Plant Operative Relationship Specialty Start Date End Date Diann Ramirez MD [address] [place] [address] PCP - General Internal Medicine 07/16/12 documented as of this encounter
--- OUTSIDE RECORDS SUMMARY | 2024-11-15 17:21 | XMS_ITS | Encounter Summary ---
Author Organization [employer] Address [address] [facility] 7 [place] [address] Care Team Providers Care Records Management Specialist Name Role Phone Diann Ramirez MD Primary Care Provider [phone] [phone] Reason for Visit * Reason Onset Date Comments Appointment Request 01/06/2023 Encounter Details Date Type Department Care Team (Late st Contact Info) Description 01/06/2023 Telephone [facility] MEDICINE [address] [place] [address] Diann Ramirez MD [address] [place] [address] Appointment Request Social History Tobacco Use Types [...] requesting to r/s appt on 01/06/23 ( 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 [address] [place] [address] Diann Ramirez MD [address] [place] [address] 12/20/2024 2:00 PM EST Telemedicine [facility] [address] [place] [address] Naomi Reyes, TABATHA [address] [place] [address] 02/15/2025 1:30 PM EDT Office Visit [facility] [address] [place] [address] Diann Ramirez MD [address] [place] [address] documented as of this encounter Visit Diagnoses Not on filedocumented in this encounter Additional Health Concerns Assessment Noted Time PHQ-9 Depression Total Score: 1 10/31/19 23 3:59 PM EST documented as of this encounter Care Teams Records Management Specialist Relationship Specialty Start Date End Date Diann Ramirez MD [address] [place] [address] PCP - General Internal Medicine 07/16/12 documented as of this encounter
--- OUTSIDE RECORDS SUMMARY | 2024-11-15 17:21 | XMS_ITS | Encounter Summary ---
Author Organization [employer] Address 75 [facility] 7 [place] [address] Care Team Providers Care Crm Architect Name Role Phone Diann Ramirez MD Primary Care Provider [phone] Reason for Visit * Reason Onset Date Comments Appointment Request 04/28/2024 Encounter Details Date Type Department Care Team (Late st Contact Info) Description 04/28/2024 Telephone [facility] MEDICINE [address] [place] [address] Diann Ramirez MD [address] [place] [address] Appointment Request Social History Tobacco Use Types [...] won't be able to make it today's [employer] OPERATOR visit due to not feeling well and is requesting to reschedule. Please contact pt at [phone]. documented in this encounter Plan of Treatment Upcoming Encounters Date Type Department Care Team (Late st Contact Info) Description 11/16/2024 3:45 PM EST Office Visit [facility] MED & PEDS [address] [place] [address] Diann Ramirez MD [address] [place] [address] 12/20/2024 2:00 PM EST Telemedicine [facility] MED [facility]ED[facility] [address] [place] [address] Naomi Reyes RN [address] [place] [address] 02/15/2025 1:30 PM EDT Office Visit [facility]ED[facility] [address] [place] [address] Diann Ramirez MD [address] [place] [address] documented as of this encounter Visit Diagnoses Not on filedocumented in this encounter Additional Health Concerns Assessment Noted Time PHQ-9 Depression Total Score: 4 03/20/20 24 9:12 AM EDT documented as of this encounter Care Teams Crm Architect Relationship Specialty Start Date End Date Diann Ramirez MD [address] [place] [id number] PCP - General Internal Medicine 07/16/12 documented as of this encounter
--- OUTSIDE RECORDS SUMMARY | 2024-11-15 17:21 | XMS_ITS | Encounter Summary ---
Author Organization [employer] Address [address] [place] [address] 7 [place] [address] Care Team Providers Care Job Boss Name Role Phone Diann Ramirez MD Primary Care Provider [phone] Reason for Referral * Consultation (Routine) - Closed Specialty Diagnoses / Procedures Referred By Contcary t Referred To Contact Behavioral Health Diagnoses Anxiety Diann Ramirez MD [address] [place] [address] Phone: tel: fax: Referral ID Status Reason Start Date Expiration Date V isits Requested Visits Authorized [id number] Closed Specialty Services Required 03/30/2024 03/30/2025 1 1 Encounter Details Date Type Department Care Team ([facility] st Contact Info) Description 03/30/2024 Orders Only [facility]EDS [address] [place] [address] Diann Ramirez MD [address] [place] [address] Anxiety (Primary Dx) Social History Tobacco Use [...] 3:45 PM EST Office Visit [facility] MED & PEDS [address] [place] [address] Diann Ramirez MD [address] [place] [address] 12/20/2024 2:00 PM EST Telemedicine [facility] MED & PEDS [address] [place] [address] Naomi Reyes RN [address] [place] [address] 02/15/2025 1:30 PM EDT Office Visit [facility] MED & PEDS [address] [place] [address] Diann Ramirez MD [address] [place] [address] Scheduled Referrals Name Type Priority Associated Diagnoses Order Schedule Referral to Behavioral Health Outpatient Referral Routine Anxiety Expected: 03/30/2024 (Approximate), Expires: 03/30/2025 documented as of this encounter Visit Diagnoses Diagnosis Anxiety- Primary Anxiety state, unspecified documented in this encounter Additional Health Concerns Assessment Noted Time PHQ-9 Depression Total Score: 4 03/20/20 24 9:12 AM EDT documented as of this encounter Care Teams Job Boss Relationship Specialty Start Date End Date Diann Ramirez MD [address] [place] [address] PCP - General Internal Medicine 07/16/12 documented as of this encounter
--- OUTSIDE RECORDS SUMMARY | 2024-11-15 17:21 | XMS_ITS | Encounter Summary ---
Author Organization [employer] Address [address] [facility] 7 [place] [address] Care Team Providers Care Stake Driver Name Role Phone Diann Ramirez MD Primary Care Provider [phone] [phone] Reason for Visit * Reason Onset Date Comments Med Refill 05/31/2024 Encounter Details Date Type Department Care Team (Late st Contact Info) Description 05/31/2024 Telephone [facility] MEDICINE [address] [place] [address] Diann Ramirez MD [address] [place] [address] Med Refill Social History Tobacco Use Types [...] 1 MG tablet To be sent to: [id number] - [place] - [address] [facility] [place] [facility] documented in this encounter Plan of Treatment Upcoming Encounters Date Type Department Care Team (Late st Contact Info) Description 11/16/2024 3:45 PM EST Office Visit [facility] MED & PEDS [address] [place] [address] Diann Ramirez MD [address] [place] [address] 12/20/2024 2:00 PM EST Telemedicine [facility] MED & PEDS [address] [place] [address] Naomi Reyes RN [address] [place] [address] 02/15/2025 1:30 PM EDT Office Visit [facility] MED & PEDS [address] [place] [address] Diann Ramirez MD [address] [place] [address] documented as of this encounter Visit Diagnoses Not on filedocumented in this encounter Additional Health Concerns Assessment Noted Time PHQ-9 Depression Total Score: 4 03/20/20 24 9:12 AM EDT documented as of this encounter Care Teams Stake Driver Relationship Specialty Start Date End Date Diann Ramirez MD [address] [place] [address] PCP - General Internal Medicine 07/16/12 documented as of this encounter
--- OUTSIDE RECORDS SUMMARY | 2024-11-15 17:21 | XMS_ITS | Encounter Summary ---
Author Organization [employer] Address [address] [facility] 7 [place] [address] Care Team Providers Care Fleet Administrative Assistant Name Role Phone Diann Ramirez MD Primary Care Provider [phone] Reason for Visit * Reason Onset Date Comments Appointment Request 01/13/2024 Encounter Details Date Type Department Care Team (Late st Contact Info) Description 01/13/2024 Telephone [facility] MEDICINE [address] [place] [address] Diann Ramirez MD [address] [place] [address] Appointment Request Social History Tobacco Use Types [...] [facility] [address] [place] [address] Diann Ramirez MD [address] [place] [address] 12/20/2024 2:00 PM EST Telemedicine [facility] MED & PEDS [address] [place] [address] Naomi Reyes, TABATHA [address] [place] [address] 02/15/2025 1:30 PM EDT Office Visit [facility] MED & PEDS [address] [place] [address] Diann Ramirez MD [address] [place] [address] documented as of this encounter Visit Diagnoses Not on filedocumented in this encounter Additional Health Concerns Assessment Noted Time PHQ-9 Depression Total Score: 1 10/31/19 23 3:59 PM EST documented as of this encounter Care Teams Fleet Administrative Assistant Relationship Specialty Start Date End Date Diann Ramirez MD [address] [place] [address] PCP - General Internal Medicine 07/16/12 documented as of this encounter
--- OUTSIDE RECORDS SUMMARY | 2024-11-15 17:21 | XMS_ITS | Encounter Summary ---
Author Organization [employer] Address [address] [place] [address] 7t [place] [address] Care Team Providers Care Snout Puller Name Role Phone Diann Ramirez MD Primary Care Provider [phone] Reason for Referral * Consultation (Routine) - Closed Specialty Diagnoses / Procedures Referred By Dania blackman Referred To Contact Hematology and Oncology Diagnoses Microcytic anemia Bicytopenia Diann Ramirez MD [address] [place] [address] Phone: tel: fax: Cornell Culver MD [address] [place] [phone] Phone: tel: fax: Referral ID Status Reason Start Date Expiration Date V isits Requested Visits Authorized [id number] Closed Specialty Services Required 03/16/2024 03/16/2025 1 1 * Imaging (Routine) - Closed Specialty Diagnoses / Procedures Referred By Contcary t Referred To Contact Diagnoses Numbness of right foot Numbness of left foot Procedures EMG Diann Ramirez MD [address] [place] [address] Phone: tel: fax: [address] Phone: tel: fax: Referral ID Status Reason Start Date Expiration Date Visits Re quested Visits Authorized [id number] Closed 03/16/2024 03/16/2025 1 1 Encounter Details Date Type Department Care Team (Late Contact Info) Description 03/12/2024 Orders Only [facility] [address] [place] [address] Diann Ramirez MD [address] [place] [address] Microcytic anemia (Primary Dx); Vitamin D deficiency; [...] Department Care Team (Late Contact Info) Description 11/16/2024 3:45 PM EST Office Visit [facility] [address] [place] [address] Diann Ramirez MD [address] [place] [address] 12/20/2024 2:00 PM EST Telemedicine [facility] [address] [place] [address] Naomi Reyes RN [address] [place] [address] 02/15/2025 1:30 PM EDT Office Visit [facility] [address] [place] [address] Diann Ramirez MD [address] [place] [address] Scheduled Orders Name Type Priority Associated Diagnoses [...] EDT Narrative 03/24/2024 3:35 PM EDT ? [facility] ?[address] ?[place] [address] ? CT Scan Report ? Signed ? Patient: Luc Erickson ?MR#: [id number] ?? 78 ? : 1980 ?Acct:[id number] ? Age/Sex: 43 / M ?ADM Date: 03/24/24 ? Loc: HO.ED ? Attending Dr: ? Ordering Physician: Phani Gamino DO ?? Date of Service: 03/24/24 ?? Procedure(s): CT head/brain wo IV con ?? Accession Number(s): [id number] ? cc: Diann Ramirez MD; Phani Gamino [...] 1531 ? DD/ 1423 ? TD/TT: ? Spanish Literature Professor: BA ? Procedure Note Donoracioter, Image - 03/24/[address] [place] [address] [address] Scan Report Signed Patient: Luc Erickson JMR#: [id number] 78 : 1980Acct:[id number] Age/Sex: 43 / MADM Date: 03/24/24 Loc: HO.ED Attending Dr: Ordering Physician: Phani Gamino DO Date of Service: 03/24/24 Procedure(s): CT head/brain wo IV con Accession Number(s): [id number] cc: Diann Ramirez MD; Phani Gamino DO [...] in OV> 03/24/24 1531 DD/ 1423 TD/TT: Spanish Literature Professor: CARMEN [facility] External Provider IMG CT PROCEDURES Final Result * XR Chest 2 Views (03/24/2024 2:00 PM EDT) Anatomical Region Laterality Modality Chest Radiographic Lacey ging 03/24/2024 2:00 PM EDT Narrative 03/24/2024 3:11 PM EDT ? [facility] ?[address] ?[place] [address] ?XRay Report ? Signed ? Patient: Stopa,Luc J ?MR#: [id number] ?? 78 ? : 1980 ?Acct:[id number] ? Age/Sex: 43 / M ?ADM Date: 03/24/24 ? Loc: HO.ED ? Attending Dr: ? Ordering Physician: Phani Gamino DO ?? Date of Service: 03/24/24 ?? Procedure(s): XR chest 2V ?? Accession Number(s): [id number] ? cc: Diann Ramirez MD; Phani Gamino [...] 1507 ? DD/ 1400 ? TD/TT: ? Spanish Literature Professor: ? Procedure Note Donotuseinterpreter, Image - 03/24/[address] [address] XRay Report Signed Patient: Luc Erickson JMR#: [id number] 78 : 1980Acct:[id number] Age/Sex: 43 / MADM Date: 03/24/24 Loc: HO.ED Attending Dr: Ordering Physician: Phani Gamino DO Date of Service: 03/24/24 Procedure(s): XR chest 2V Accession Number(s): [id number] cc: Diann Ramirez MD; Phani Gamino DO [...] in OV> 03/24/24 1507 DD/ 1400 TD/TT: Spanish Literature Professor: [facility] External Provider IMG XR PROCEDURES Final Result * Tick-borne Disease, Acute Molecular Panel (03/24/2024 12:15 PM EDT) Babesia microti DNA, Real Time PCR NOT DETECTED NOT DETECTED [facility] Comment:This test was devsusano aida and its analytical performancecharacteristics have been determined by [employer]. It has not been cleared or approved by theA. This assay has been validated pursuant to the CLIAregulations and is used for clinical purposes.THIS TEST WAS PERFORMED AT:[facility] [place] [phone] MEMBRENO MD Ehrlichia chaffensis DNA Real Time PCR NOT DETECTED NOT DETECTED [facility] Comment:This test was develo ped and its analytical performancecharacteristics have been determined by [employer]. It has not been cleared or approved by theFDA. This assay has been validated pursuant to the CLIAregulations and is used for clinical purposes.THIS TEST WAS PERFORMED AT:[facility] [address] [phone] MEMBRENO MD Anaplasma phagocytophilum DNA, QL Real Time PCR NOT DETECTED NOT DETECTED [facility] Comment:This test was develo ped and its analytical performancecharacteristics have been determined by [employer]. It has not been cleared or approved by theFDA. This assay has been validated pursuant to the CLIAregulations and is used for clinical purposes. Borrelia Species DNA, Ql Real Time PCR NOT DETECTED NOT DETECTED [facility] Comment:This test was develo ped and its analytical performancecharacteristics have been determined by [employer]. It has not been cleared or approved by theFDA. This assay has been validated pursuant to the CLIAregulations and is used for clinical purposes.For additional information, please refer [email or web address]/faq/[email or web address](This link is being provided for informational/educational purposes only.)THIS TEST WAS PERFORMED AT:[facility] [address] [phone] MEMBRENO MD Borrelia Miyamotoi DNA, Ql Real Time PCR NOT DETECTED NOT DETECTED [facility] Comment:This test detects bu t does not distinguish betweenB. miyamotoi and B. hermsii.This test was developed and its analytical performancecharacteristics have been determined by [employer]. It has not been cleared or approved by theFDA. This assay has been validated pursuant to the CLIAregulations and is used for clinical purposes.THIS TEST WAS PERFORMED AT:[facility] [address] [phone] MEMBRENO MD Comment SEE NOTE [facility] Comment:A negative result do es not exclude Borrelia infectionas the concentration of the organism in blood may be lowor non-existent in patients with Lyme disease, and maydepend on timing of specimen collection from onset ofsymptoms. Clinical correlation is recommended andadditional studies such as serologic testing may beindicated.THIS TEST WAS PERFORMED AT:[facility] [place] [phone] MEMBRENO MD 03/24/2024 12:1 5 PM EDT 03/24/2024 12:19 PM EDT Generic External Data Provider LAB BLOOD ORDERAB LES Final Result Performing Organization Address [facility]/ZIP Co de Phone Number [facility] [address] [place] [phone] * Slide Review (03/24/2024 12:15 PM EDT) Slide Review VERIFIED [facility] 03/24/2024 12:1 5 PM EDT 03/24/2024 12:19 PM EDT Generic External Data Provider LAB BLOOD ORDERAB LES Final Result Performing Organization Address [facility] de Phone Number [facility] [address] [place] [phone] * (ABNORMAL) CBC auto differential (03/24/2024 12:15 PM EDT) White Blood Count 8.3 4.8 - 10.8 X10*3/uL [facility] Red Blood Count 4.86 4.60 - 5.80 X10*6/uL [facility] Hemoglobin 14.0 14.0 - 18.0 g/dl [facility] Hematocrit 41.0(L) 42.0 - 52.0 % [facility] Mean Corpuscular Volume 84.4 80.0 - 98.0 fL [facility] Mean Corpuscular Hemoglobin 28.8 27.0 - 33.0 pg [facility] Mean Corpuscular HGB Conc 34.1 31.0 - 36.0 g/dl [facility] Red Cell Distribution Width 12.2 11.0 - 16.0 % [facility] Platelet Count 122(L) 160 - 400 X10*3/uL [facility] Comment:Confirmed by smear. Mean Platelet Volume 10.8 9.4 - 12.4 fL [facility] Neutrophils Percent Auto 62.4 45 - 73 % [facility] Imm Gran Pct Auto 0.7(H) 0.0 - 0.4 % [facility] Lymphocytes Percent Auto 27.4 20 - 40 % [facility] Monocytes Percent Auto 5.6 2 - 11 % [facility] Eosinophils Percent Auto 3.3 0 - 4 % [facility] Basophils Percent Auto 0.6 0 - 2 % [facility] NRBC Pct Auto 0.0 0.0 - 0.2 /100WBC [facility] Neutrophils Absolute Auto 5.2 2.0 - 8.3 x10*3/uL [facility] Imm Gran Abs Auto 0.06(H) 0.00 - 0.03 X10*3/uL [facility] Lymphocytes Absolute Auto 2.3 1.2 - 4.9 X10*3/uL [facility] Monocytes Absolute Auto 0.5 0.1 - 1.2 X10*3/uL [facility] Eosinophils Absolute Auto 0.3 0.0 - 0.4 X10*3/uL [facility] Basophils Absolute Auto 0.1 0.0 - 0.2 X10*3/uL [facility] NRBC Abs Auto 0.000 0.0 - 0.012 X10*3/uL [facility] 03/24/2024 12:1 5 PM EDT 03/24/2024 12:19 PM EDT us Generic External Data Provider LAB BLOOD ORDERAB LES Edited Result - Final [facility] [address] [place] [phone] [phone] * TSH with Reflex to Free T4 (03/24/2024 12:15 PM EDT) TSH reflex Free T4 1.53 0.32 - 4.0 uIU/mL [facility] 03/24/2024 12:1 5 PM EDT 03/24/2024 12:19 PM EDT us Generic External Data Provider LAB BLOOD ORDERAB LES Final Result Performing Organization Address [facility]/ZIP Co de Phone Number [facility] [address] [place] [phone] * Ferritin (03/24/2024 12:15 PM EDT) Pathologist [facility] Ferritin 109 20 - 250 ng/mL [facility] 03/24/2024 12:1 5 PM EDT 03/24/2024 12:19 PM EDT us Generic External Data Provider LAB BLOOD ORDERAB LES Final Result Performing Organization Address [facility] Co de Phone Number [facility] [address] [place] [phone] * High Sensitivity Troponin I (03/24/2024 12:15 PM EDT) Pathologist [facility] TROPONIN I HIGH SENSITIVITY <2.7 <3.5 - 35.0 ng/L [facility] Comment:The Cha high sens itivity Troponin-I results should beused in conjunction with other diagnostic information suchas ECG, clinical observations and information, and patientsymptoms to aid in the diagnosis of [place]. 03/24/2024 12:1 5 PM EDT 03/24/2024 12:19 PM EDT us Generic External Data Provider LAB BLOOD ORDERAB LES Final Result Performing Organization Address [facility]/ZIP Co de Phone Number [facility] [address] [place] [phone] * Magnesium (03/24/2024 12:15 PM EDT) Magnesium 1.9 1.6 - 2.6 mg/dL [facility] 03/24/2024 12:1 5 PM EDT 03/24/2024 12:19 PM EDT us Generic External Data Provider LAB BLOOD ORDERAB LES Final Result [facility] [address] [place] [phone] * (ABNORMAL) Comprehensive Metabolic Panel (03/24/2024 12:15 PM EDT) Sodium 140 135 - 145 mmol/L [facility] Potassium 3.6 3.3 - 5.1 mmol/L [facility] Chloride 106 96 - 108 mmol/L [facility] Carbon Dioxide 27 22 - 29 mmol/L [facility] Anion Gap 11(L) 12 - 20 [facility] Urea Nitrogen (BUN) 8(L) 9 - 16 mg/dL [facility] Creatinine, Serum 0.84 0.5 - 1.4 mg/dL [facility] Creatinine Clr Calc Pharmacy 145.2 [facility] Comment:eGFR (calculated fro m the MDRD study equation) and eCrCl(calculated from the Cockcroft-Gault equation) are based ondifferent parameters and may not yield comparable results.If eCrCl result is absurd, please check patient'sheight/weight. Estimated Glomerular Filt Rate >60 [facility] Comment:NOTE: For -Am erican individuals, multiply the result by 1.210.Chronic Kidney Disease: Estimated GFR < 60 mL/min/1.08u0Lzxgdm Kidney Disease: Estimated GFR < 15 mL/min/1.73m2 Glucose 113 60 - 115 mg/dL [facility] Calcium 9.3 8.4 - 10.2 mg/dL [facility] Bilirubin, Total 0.3 0.0 - 1.0 mg/dL [facility] Aspartate Amino Transferase 15 5 - 37 U/L [facility] Alanine Aminotransferase 13 0 - 40 U/L [facility] Total Protein 7.5 6.5 - 8.0 g/dL [facility] Albumin Level 4.3 3.5 - 5.0 g/dL [facility] Alkaline Phosphatase 79 39 - 117 U/L [facility] 03/24/2024 12:1 5 PM EDT 03/24/2024 12:19 PM EDT Generic External Data Provider LAB BLOOD ORDERAB LES Final Result Performing Organization Address [facility] Co de Phone Number [facility] [address] [place] [phone] * Prothrombin Time-INR (03/24/2024 12:15 PM EDT) Prothrombin Time 12.4 11.1 - 13.3 SEC [facility] INTERNATIONAL NORM RATIO 1.0 0.9 - 1.1 [facility] Comment:INTERNATIONAL NORMAL IZED RATIO (INR) REFERENCE [...] 5 PM EDT 03/24/2024 12:19 PM EDT [employer] External Data Provider LAB BLOOD ORDERAB LES Final Result Performing Organization Address [facility] de Phone Number [facility] [address] [place] [phone] * (ABNORMAL) Reticulocyte Count (03/16/2024 11:56 AM EDT) Reticulocytes Absolute 0.127(H) 0.026 - 0.095 X10*6/uL [facility] Immature Retic Fraction 15.3(H) 2.3 - 13.4 % [facility] Retic HGB Equivalent 33.6 30.0 - 35.0 pg [facility] Reticulocyte Percent 2.8(H) 0.5 - 1.8 % [facility] Blood Venous blood specimen / Unknown 03/16/2024 11:56 AM EDT 03/16/2024 2:40 PM EDT us Diann Ramirez MD LAB BLOOD ORDERABLES Final Result Performing Organization Address [facility]/ZIP Co de Phone Number [facility] [address] [place] [phone] * Ferritin (03/16/2024 11:56 AM EDT) Ferritin 118 20 - 250 ng/mL [facility] Blood Venous blood specimen / Unknown 03/16/2024 11:56 AM EDT 03/16/2024 2:42 PM EDT us Diann Ramirez MD LAB BLOOD ORDERABLES Final Result Performing Organization Address [facility] Co de Phone Number [facility] [address] [place] [phone] * Iron And Total Iron Binding Capacity (03/16/2024 11:56 AM EDT) Iron 55 45 - 160 mcg/dL [facility] Total Iron Binding Capacity 261 228 - 428 mcg/dL [facility] Percent Iron Saturation 21 15 - 50 % [facility] Unsaturated Iron Binding 206 ug/dL [facility] Blood Venous blood specimen / Unknown 03/16/2024 11:56 AM EDT 03/16/2024 2:42 PM EDT us Diann Ramirez MD LAB BLOOD ORDERABLES Final Result [facility] [address] [place] [phone] [phone] documented in this encounter Visit Diagnoses Diagnosis Microcytic anemia- Primary Unspecified iron deficiency anemia Vitamin D deficiency Primary hypertension Unspecified essential hypertension Numbness of right foot Numbness of left foot Bicytopenia documented in this encounter Additional Health Concerns Assessment Noted Time PHQ-9 Depression Total Score: 1 10/31/19 23 3:59 PM EST documented as of this encounter Care Teams Snout Puller Relationship Specialty Start Date End Date Diann Ramirez MD [address] [place] [phone] PCP - General Internal Medicine 07/16/12 documented as of this encounter
--- OUTSIDE RECORDS SUMMARY | 2024-11-15 17:21 | XMS_ITS | Encounter Summary ---
Author Organization [employer] Address [address] [facility] 7t [place] [address] Care Team Providers Care Cotton Opener Name Role Phone Diann Ramirez MD Primary Care Provider [phone] Encounter Details Date Type Department Care Team (Late st Contact Info) Description 05/18/2024 Orders Only [facility] [address] [place], [place] [phone] Provider, MD Shar Social History Tobacco Use [...] 3:45 PM EST Office Visit [facility] [address] [place] [address] Diann Ramirez MD [address] [place] [address] 12/20/2024 2:00 PM EST Telemedicine [facility] [address] [place] [address] Naomi Reyes RN [address] [place] [address] 02/15/2025 1:30 PM EDT Office Visit [facility] [address] [place] [address] Diann Ramirez MD [address] [place] [address] documented as of this encounter Procedures Procedure [...] documented as of this encounter Care Teams Cotton Opener Relationship Specialty Start Date End Date Diann Ramirez MD [address] [place] [address] PCP - General Internal Medicine 07/16/12 documented as of this encounter
--- OUTSIDE RECORDS SUMMARY | 2024-11-15 17:21 | XMS_ITS | Encounter Summary ---
Author Organization [employer] Address [address] [facility] 7t [place] [address] Care Team Providers Care Refinery Operator Helper Crude Unit Name Role Phone Diann Ramirez MD Primary Care Provider [phone] Encounter Details Date Type Department Care Team (Late Contact Info) Description 10/18/2022 Orders Only [facility] MEDICINE [address] [place], [place] [phone] Diann Ramirez MD [address] [place], [place] [phone] Acute cough; Bronchospasm Social History Tobacco Use [...] Description 11/16/2024 3:45 PM EST Office Visit [facility] [address] [place], [place] [phone] Diann Ramirez MD [address] [place], [place] [phone] 12/20/2024 2:00 PM EST Telemedicine [facility] MED & PEDS [address] [place] [address] Naomi Reyes, TABATHA [address] [place] [address] 02/15/2025 1:30 PM EDT Office Visit [facility] PEDS [address] [place] [address] Diann Ramirez MD [address] [place] [address] documented as of this encounter Visit Diagnoses Diagnosis Acute cough Bronchospasm Acute bronchospasm documented in this encounter Care Teams Refinery Operator Helper Crude Unit Relationship Specialty Start Date End Date Diann Ramirez MD [address] [place] [address] PCP - General Internal Medicine 07/16/12 documented as of this encounter
--- OUTSIDE RECORDS SUMMARY | 2024-11-15 17:21 | XMS_ITS | Encounter Summary ---
Author Organization [employer] Address [address] [facility] 7 [place] [address] Care Team Providers Care Registered Nurse Cardiac Telemetry Name Role Phone Diann Ramirez MD Primary Care Provider [phone] Reason for Visit * Reason Onset Date Comments Referral 11/21/2022 Encounter Details Date Type Department Care Team (Late st Contact Info) Description 11/21/2022 Telephone [facility] MEDICINE [address] [place] [address] Diann Ramirez MD [address] [place] [address] Referral Social History Tobacco Use Types Packs/Day [...] by Dr Linton Please contact pt at [phone] Please see above message. Thanks * Telephone Encounter - Mario Saldivar - 11/21/2022 2:42 PM EST Tc from pt requesting a new referral for neurologist states don't want to be seen by Dr Linton Please contact pt at [phone] documented in this encounter Plan of Treatment Upcoming Encounters Date Type Department Care Team ([facility] st Contact Info) Description 11/16/2024 3:45 PM EST Office Visit [facility] PEDS [address] [place] [address] Diann Ramirez MD [address] [place] [address] 12/20/2024 2:00 PM EST Telemedicine [facility] MED [facility] PEDS [address] [place] [address] Naomi Reyes RN [address] [place] [address] 02/15/2025 1:30 PM EDT Office Visit [facility] PEDS [address] [place] [address] Diann Ramirez MD [address] [place] [address] documented as of this encounter Visit Diagnoses Diagnosis Chronic cluster headache, not intractable- Primary documented in this encounter Additional Health Concerns Assessment Noted Time PHQ-9 Depression Total Score: 1 10/31/19 23 3:59 PM EST documented as of this encounter Care Teams Registered Nurse Cardiac Telemetry Relationship Specialty Start Date End Date Diann Ramirez MD [address] [place] [address] PCP - General Internal Medicine 07/16/12 documented as of this encounter
--- OUTSIDE RECORDS SUMMARY | 2024-11-15 17:21 | XMS_ITS | Encounter Summary ---
Author Organization [employer] Address [address] [facility] 7 [place] [address] Care Team Providers Care Railcar Brake Operator Name Role Phone Diann Ramirez MD Primary Care Provider [phone] Reason for Visit * Reason Onset Date Comments Med Refill 09/02/2024 Encounter Details Date Type Department Care Team (Late st Contact Info) Description 09/02/2024 Telephone [facility] MEDICINE [address] [place] [address] Diann Ramirez MD [address] [place] [address] Med Refill Social History Tobacco Use Types [...] 1 MG tablet To be sent to: [id number] - [place], [place] - [address] [facility] [place] [facility] TAMI documented in this encounter Plan of Treatment Upcoming Encounters Date Type Department Care Team (Late st Contact Info) Description 11/16/2024 3:45 PM EST Office Visit [facility] MED & PEDS [address] [place] [address] Diann Ramirez MD [address] [place] [address] 12/20/2024 2:00 PM EST Telemedicine [facility] MED [facility] PEDS [address] [place] [address] Naomi Reyes RN [address] [place] [address] 02/15/2025 1:30 PM EDT Office Visit [facility] MED & PEDS [address] [place] [address] Diann Ramirez MD [address] [place] [address] documented as of this encounter Visit Diagnoses Not on filedocumented in this encounter Additional Health Concerns Assessment Noted Time PHQ-9 Depression Total Score: 4 03/20/20 24 9:12 AM EDT documented as of this encounter Care Teams Railcar Brake Operator Relationship Specialty Start Date End Date Diann Ramirez MD [address] [place] [address] PCP - General Internal Medicine 07/16/12 documented as of this encounter
--- OUTSIDE RECORDS SUMMARY | 2024-11-15 17:21 | XMS_ITS | Clinical Summary ---
Author Organization [employer] Address [address] [facility] 7t [place] [address] Care Team Providers Care Rn Progressive Care Name Role Phone Diann Ramirez MD Primary Care Provider [phone] Allergies Active Allergy Reactions Criticality Noted Date Comments Insulins 11/15/2024 Sertraline Low 11/18/2019 Other reaction(s): Skin lesion Medications * This document contains information received from the source organization and may not represent a complete record from that organization. Buprenorphine HCl-Naloxone HCl (Suboxone) 8-[address] 2 film by sublingual route every day allow to dissolve slowly in mouth without chewing or swallowing Active cholecalciferol (Vitamin D-3) 50 MCG (1999 UT) tablet 1 tab once a day [...] 23 Active ergocalciferol (Vitamin D2) 1.25 MG (15503 UT) capsuleIndicati ons:Vitamin D deficiency Take 1 [...] and protective factors. Referral placed sent to [facility] on 07/21 for OP services. Provided [...] intervention , [facility], Patient to engage in [...] and protective factors. Referral placed sent to [facility] on 07/21 for OP services. Provided [...] intervention , [facility] as needed, Patient to engage in [...] organization. Date Type Department Care Team Description 11/15/2024 9:15 AM EST Office Visit [facility] [address] [place] [address] Diann Ramirez MD Primary hypertension (Primary Dx); Other closed fracture of distal end of left fibula, initial encounter; Dietary counseling; Exercise counseling; Class 2 severe obesity due to excess calories with serious comorbidity and body mass index (BMI) of 35.0 to 35.9 in adult ([facility]) 11/15/2024 Travel 11/11/2024 Orders Only [facility] External Provider, [facility] 10/27/2024 Refill [facility] [address] [place] [address] Diann Ramirez MD Anxiety 10/01/2024 Telephone [facility] [address] [place] [address] Diann Ramirez MD Results 10/01/2024 Refill [facility] MED[facility] [address] [place] [address] Diann Ramirez MD Anxiety 10/01/2024 Orders Only [facility] [address] [place] [address] Diann Ramirez MD Hiatal hernia (Primary Dx) 09/22/2024 9:30 AM EST Clinical Support [facility] [address] [place] [address] Naomi Reyes RN Anxiety 09/22/2024 Telephone [facility] [address] [place] [address] Naomi Reyes RN 09/22/2024 Travel 09/02/2024 Refill [facility] [address] [place] [address] Naomi Reyes, RN Anxiety 09/02/2024 Telephone [facility] MEDICINE [address] [place] [address] Diann Ramirez MD Med Refill from Last [...] Mass Index 35.29 11/15/2024 9:06 AM EST Plan of Treatment Upcoming Encounters Date Type Department Care Team ([facility] st Contact Info) Description 11/16/2024 3:45 PM EST Office Visit [facility] [address] [place] [address] Diann Ramirez MD [address] [place] [address] 12/20/2024 2:00 PM EST Telemedicine [facility] [address] [place] [address] Naomi Reyes RN [address] [place] [address] 02/15/2025 1:30 PM EDT Office Visit [facility] [address] [place] [address] Diann Ramirez MD [address] [place] [address] Health Maintenance Due Date Last Done Comments Alcohol/Substance Use Screening 1992 Family Planning (PISQ) 1995 Hepatitis B Vaccines (1 of 3 - 19+ 3-dose series) 1999 COVID-19 Vaccine (2023-2 5 season) 2024 Influenza Vaccine (#1) 2024 Depression Screening 03/20/2025 03/20/2024, 03/20/2024 Tobacco Screening 2025 2024 SDOH Screening 11/15/2025 11/15/2024 DTaP/Tdap/Td Vaccines (2 - T d or [...] LEFT Routine 11/15/2024 1:17 PM EST XR TIBIA FIBULA 2 VIEWS LEFT [...] 3+ Views Left (11/15/2024 1:17 PM EST) Only the most recent of2 resultswithin the time period is included. Anatomical Region Laterality Modality Lower Extremities, Ankle Left Radiogr aphic Imaging 11/15/2024 1:17 PM EST Narrative 11/15/2024 3:30 PM EST ? [facility] ? [address] ?[place] [address] ?XRay Report ? Signed ? Patient: Stopa,Luc J ?MR#: [id number] ?? 78 ? : 1980 ?Acct:[id number] ? Age/Sex: 44 / M ?ADM Date: 11/15/24 ? Loc: HO.HOSX ? Attending Dr: Shreya Whelan PA-C ? Ordering Physician: Shreya Whelan PA-C ?? Date of Service: 11/15/24 ?? Procedure(s): XR ankle LT min 3V ?? Accession Number(s): [id number] ? cc: Diann Ramirez MD; Shreya Whelan [...] ??Jovany Arambula MD ??11/15/2024 03:27 PM EST ?? RP ? Dictated By: ?Jovany Arambula MD ? Signed By: ?<Electronically signed by Jovany Arambula MD in OV> ?11/15/24 1527 ? DD/ 1317 ? TD/TT: 11/15/24 1320 ? Plant Electrical Engineer: ? Procedure Note Kateryna, Image - 11/15/2024 [facility] [address] [place] [address] XRay Report Signed Patient: Luc Erickson JMR#: [id number] 78 : 1980Acct:[id number] Age/Sex: 44 / MADM Date: 11/15/24 Loc: HOYasirHOSX Attending Dr: Shreya Whelan PA-C Ordering Physician: Shreya Whelan PA-C Date of Service: 11/15/24 Procedure(s): XR ankle LT min 3V Accession Number(s): [id number] cc: Diann Ramirez MD; Shreya Whelan PA-C [...] Jovany Arambula MD 11/15/2024 03:27 PM EST Dictated By: Jovany Arambula MD Signed By: <Electronically signed by Jovany Arambula MD in OV> 11/15/24 1527 DD/ 1317 TD/TT: 11/15/24 1320 Plant Electrical Engineer: [facility] External Provider IMG XR PROCEDURES Final Result * XR Tibia Fibula 2 Views Left (11/11/2024 10:45 AM EST) Anatomical Region Laterality Modality Lower Extremities, Lower Leg Left Rad iographic Imaging 11/11/2024 10:4 5 AM EST Narrative 11/11/2024 11:32 AM EST ? [facility] ?[address] ?[place] [address] ?XRay Report ? Signed ? Patient: Stopa,Luc J ?MR#: [id number] ?? 78 ? : 1980 ?Acct:[id number] ? Age/Sex: 44 / M ?ADM Date: 11/11/24 ? Loc: HO.ED ? Attending Dr: ? Ordering Physician: Generic ED Physician ?? Date of Service: 11/11/24 ?? Procedure(s): XR tibia fibula LT 2V ?? Accession Number(s): [id number] ? cc: Dainn Ramirez MD; Generic ED Physician ? Examination: [...] DD/ 1045 ? TD/TT: 11/11/24 1100 ? Plant Electrical Engineer: MSM ? Procedure Note Kateryna, [place] - 11/11/2024 [place] [address] XRay Report Signed Patient: Luc Erickson JMR#: [id number] [birth year] : 1980Acct:[id number] Age/Sex: 44 / MADM Date: 11/11/24 Loc: HO.ED Attending Dr: Ordering Physician: Generic ED Physician Date of Service: 11/11/24 Procedure(s): XR tibia fibula LT 2V Accession Number(s): [id number] cc: Diann Ramirez MD; Generic ED Physician [...] 11/11/24 1129 DD/ 1045 TD/TT: 11/11/24 1100 Plant Electrical Engineer: FEMI us [facility] External Provider IMG XR PROCEDURES Final Result * FL Esophagus Barium Swallow (09/30/2024 8:33 AM EST) Anatomical Region Laterality Modality Head, Neck Radiographic Lacey ging 09/30/2024 8:33 AM EST Narrative 09/30/2024 4:36 PM EST ? [facility] ?[address] ?[place] [address] ? Fluoroscopy Report ? Signed ? Patient: Stopa,Luc J ?MR#: [id number] ?? 78 ? : 1980 ?Acct:[id number] ? Age/Sex: 44 / M ?ADM Date: 09/30/24 ? Loc: HO.XRAY ? Attending Dr: Diann Ramirez MD ? Ordering Physician: Diann Ramirez MD ?? Date of Service: 09/30/24 ?? Procedure(s): FL barium swallow ?? Accession Number(s): [id number] ? cc: Diann Ramirez MD ? EXAMINATION: [...] Ruiz MD ??09/30/2024 04:33 PM EST RP ? Dictated By: ?Perfetco Babb ? Signed By: ?<Electronically signed by Perfecto Babb in OV> ? 09/30/24 1633 ?<Electronically signed by Carter Ruiz MD in OV> ? 09/30/24 1636 ? DD/ 0833 ? TD/TT: 09/30/24 0904 ? Plant Electrical Engineer: ? Procedure Note Donotuseinterpreter, Image - 10/01/[address] [address] Fluoroscopy Report Signed Patient: Luc Erickson JMR#: [id number] 78 : 1980Acct:[id number] Age/Sex: 44 / MADM Date: 09/30/24 Loc: HO.XRAY Attending Dr: Diann Ramirez MD Ordering Physician: Diann Ramirez MD Date of Service: 09/30/24 Procedure(s): FL barium swallow Accession Number(s): [id number] cc: Diann Ramirez MD EXAMINATION: XR FLUOROSCOPY [...] by: Carter Ruiz MD 09/30/2024 04:33 PM EST RP Dictated By: Perfecto Babb Signed By: <Electronically signed by Perfecto Babb in OV> 09/30/24 1633 <Electronically signed by Carter Ruiz MD in OV> 09/30/24 1636 DD/ 0833 TD/TT: 09/30/24 0904 Plant Electrical Engineer: us Diann Ramirez MD IMG FLUOROSCOPY PROCEDURES Edited Result - Final * POCT COLLIN-14 Urine Drug Screen (09/22/2024 9:58 AM EST) Benzodiazepines Screen, Urine Positive Buprenophine Screen, Urine Positive Urine Urine specimen obtained by clean catch procedure / Unknown 09/22/2024 9:58 AM EST Narrative Naomi Reyes, RN - 09/22/2024 9:58 AM EST Lot# [id number] Exp: 09-25-25 us Diann Ramirez MD POINT OF CARE TEST ENTER/ED IT ORDERABLES Final Result * (ABNORMAL) Lipid Panel, Standard (03/11/2024 1:07 PM EDT) Triglycerides 40 <150 mg/dL [facility] Comment:Desirable Triglyceri de: less than 150 mg/dLBorderline High Triglyceride 150-199 mg/dLHigh Triglyceride: 200-499 mg/dLVery High Triglyceride: greater than or equal to 5OO mg/dL Cholesterol 141 <200 mg/dL [facility] Comment:Desirable Cholestero l: less than 200 mg/dLBorderline High Cholesterol: 200-239 mg/dLHigh Cholesterol: greater than 239 mg/dL LDL Cholesterol Calculated 93 <100 mg/dL [facility] Comment:Desirable LDL: less than 100 mg/dLNear Optimal/Above Optimal LDL: 110- 129 mg/dLBorderline High LDL: 130-159 mg/dLHigh LDL: 160-189 mg/dLVery High LDL: greater than or equal to 190 mg/dL HDL Cholesterol 40(L) >40 mg/dL [facility] Comment:Desirable HDL: great er than 40 mg/dL Note: This HDL assay may give artificially low results in patients with liver disease. Blood Venous blood specimen / Unknown 03/11/2024 1:07 PM EDT 03/11/2024 2:22 PM EDT us Diann Ramirez MD LAB BLOOD ORDERABLES Final Result Performing Organization Address [facility]/ZIP Co de Phone Number [facility] [address] [place] [phone] * HIV AB/AG (08/07/2022 2:03 PM EDT) [facility] HIV AB/AG Nonreactive Nonreactive [facility] Comment: HIV-1 p24 Ag and/or HIV-1/HIV-2 [...] detection of this assay. ?? The [facility] Facilities Coordinator HIV Ag/Ab Combo assay result and supplemental assay results should be interpreted in conjunction with the patient's clinical presentation, history and other laboratory results. ??If the results are inconsistent with clinical evidence, additional testing is suggested to confirm the result. 08/07/2022 2:03 PM EDT us Tra Linton MD HISTORICAL/NON ORDERAB LE LABS Final Result [facility] * HEPATITIS C AB W/REFL TO HCV RNA, QN, PCR (07/01/2022 10:13 AM EDT) HEPATITIS C ANTIBODY NON-REACT JESSEE NON-REACT JESSEE [facility] INDEX 0.14 <1.00 [facility] Comment: ?? HCV antibody was non-reactive. There is no laboratory ?? evidence of HCV infection. ?? In most cases, no further action is required. However, if recent HCV exposure is suspected, a test for HCV RNA (test code 24122) is suggested. ?? For additional information please refer to http://education.AnovaStorm/faq/ANW41u4 (This link is being provided for informational/ educational purposes only.) ?? 07/01/2022 10:1 3 AM EDT us Diann Ramirez MD HISTORICAL/NON ORDERABLE PUMA JAMESON Final Result [facility] [address] from Last 3 Months or Most Recently Relevant to Health Maintenance Insurance [facility] C3 Care Teams Rn Progressive Care Relationship Specialty Start Date End Date Diann Ramirez MD [address] [place] [address] [place] [address] PCP - General Internal Medicine 07/16/12
== END 2024-11-15 14:14 | disposition home or self-care (01) ==
PROVIDERS: PCP Internal Medicine; Visit Provider Physician Assistant
DX: S82.892A Other fracture of left lower leg, initial encounter for closed fracture (principal)
CPT/HCPCS: 27786; 99204

== ENCOUNTER 2024-11-15 12:41 | Outpatient (REF) | payer MEDICAID, SELFPAY ==
--- NOTE | ~2024-11-15 | XR_ITS ---
EXAMINATION: XR ANKLE 3 OR MORE VIEWS LEFT HISTORY: M25.572 - Pain in left ankle and joints of left foot COMPARISON: Comparison is made with the prior examination dated 11/11/2024. FINDINGS: Three views of the left ankle are submitted. Osseous mineralization is normal. Again seen is a mildly displaced oblique fracture of the distal fibula. No significant callus formation is noted. The joint spaces are preserved. The soft tissues are unremarkable. XR/XR ankle LT min 3V IMPRESSION: Mildly displaced oblique fracture of the distal fibula without change. Electronically signed by: Jovany Arambula MD 11/15/2024 03:27 PM RAMONA
--- OUTSIDE RECORDS SUMMARY | 2024-11-15 18:00 | XMS_ITS | Encounter Summary ---
Author Organization [employer] Address [address] [facility] 7 [place] [address] Care Team Providers Care String Laster Name Role Phone Diann Ramirez MD Primary Care Provider [phone] Reason for Visit * Reason Onset Date Comments Med Refill 03/18/2023 Encounter Details Date Type Department Care Team (Late st Contact Info) Description 03/18/2023 Telephone [facility] MED[facility]INE [address] [place] [address] Diann Ramirez MD [address] [place], [place] [phone] Med Refill Social History Tobacco Use Types [...] 3:45 PM EST Office Visit [facility] [address] [place] [address] Diann Ramirez MD [address] [place] [address] 12/20/2024 2:00 PM EST Telemedicine [facility] [address] [place] [address] Naomi Reyes RN [address] [place] [address] 02/15/2025 1:30 PM EDT Office Visit [facility] [address] [place] [address] Diann Ramirez MD [address] [place] [address] documented as of this encounter Visit Diagnoses Not on filedocumented in this encounter Additional Health Concerns Assessment Noted Time PHQ-9 Depression Total Score: 1 10/31/19 23 3:59 PM EST documented as of this encounter Care Teams String Laster Relationship Specialty Start Date End Date Diann Ramirez MD [address] [place] [address] PCP - General Internal Medicine 07/16/12 documented as of this encounter
--- OUTSIDE RECORDS SUMMARY | 2024-11-15 18:00 | XMS_ITS | Encounter Summary ---
Author Organization [employer] Address [address] [facility] 7 [place] [address] Care Team Providers Care Lead Android Developer Name Role Phone Diann Ramirez MD Primary Care Provider [phone] Reason for Visit * Reason Onset Date Comments Appointment Request 08/04/2024 Encounter Details Date Type Department Care Team ([facility] st Contact Info) Description 08/04/2024 Telephone [facility] MED[facility]INE [address] [place] [address] Diann Ramirez MD [address] [place] [address] Appointment Request Social History Tobacco Use Types [...] EDT Tc from pt requesting to r/s RECREATION OFFICER RN appt scheduled for today, appt has been cancelled. Please contact at [phone] documented in this encounter Plan of Treatment Upcoming Encounters Date Type Department Care Team (Late st Contact Info) Description 11/16/2024 3:45 PM EST Office Visit [facility] [address] [place] [address] Diann Ramirez MD [address] [place] [address] 12/20/2024 2:00 PM EST Telemedicine [facility] [address] [place] [address] Naomi Reyes RN [address] [place] [address] 02/15/2025 1:30 PM EDT Office Visit [facility] [address] [place] [address] Diann Ramirez MD [address] [place] [address] documented as of this encounter Visit Diagnoses Not on filedocumented in this encounter Additional Health Concerns Assessment Noted Time PHQ-9 Depression Total Score: 4 03/20/20 24 9:12 AM EDT documented as of this encounter Care Teams Lead Android Developer Relationship Specialty Start Date End Date Diann Ramirez MD [address] [place] [address] PCP - General Internal Medicine 07/16/12 documented as of this encounter
--- OUTSIDE RECORDS SUMMARY | 2024-11-15 18:00 | XMS_ITS | Encounter Summary ---
Author Organization [employer] Address 75 [facility] 7 [place] [address] Care Team Providers Care Fuse Coiler Name Role Phone Diann Ramirez MD Primary Care Provider [phone] Reason for Visit * Reason Comments Hypertension Encounter Details Date Type Department Care Team ([facility] st Contact Info) Description 11/15/2024 9:15 AM EST Office Visit [facility]S [address] [place], [place] [phone] Diann Ramirez MD [address] [place] [address] Primary hypertension (Primary Dx); Other closed fracture of distal end of left fibula, initial encounter; Dietary counseling; Exercise counseling; Class 2 severe obesity due to excess calories with serious comorbidity and body mass index (BMI) of 35.0 to 35.9 in adult ([facility]) Social History Tobacco Use Types Packs/Day Years [...] (BMI) of35.0 to 35.9 in adult ([facility]) Discussed calorie deficit, recommended reduction of 20-30% of maintenance calories; technical sales support specialist referral offered. Recommended to decrease soda and [...] [facility] [address] [place] [address] Diann Ramirez MD [address] [place] [address] 12/20/2024 2:00 PM EST Telemedicine [facility] [address] [place] [address] Naomi Reyes, TABATHA [address] [place] [address] 02/15/2025 1:30 PM EDT Office Visit [facility] [address] [place] [address] Diann Ramirez MD [address] [place] [address] documented as of this encounter Visit Diagnoses Diagnosis Primary hypertension- Primary Unspecified essential hypertension Other closed fracture of distal end of left fibula, initial encounter Dietary counseling Dietary surveillance and counseling Exercise counseling Class 2 severe obesity due to excess calories with serious comorbidity and body mass index (BMI) of 35.0 to 35.9 in adult ([facility]) documented in this encounter Additional Health Concerns Assessment Noted Time PHQ-9 Depression Total Score: 4 03/20/20 24 9:12 AM EDT documented as of this encounter Care Teams Fuse Coiler Relationship Specialty Start Date End Date Diann Ramirez MD [address] [place] [address] PCP - General Internal Medicine 07/16/12 documented as of this encounter
--- OUTSIDE RECORDS SUMMARY | 2024-11-15 18:00 | XMS_ITS | Encounter Summary ---
Author Organization [employer] Address 75 [facility] 7 [place] [address] Care Team Providers Care Bulker Name Role Phone Diann Ramirez MD Primary Care Provider [phone] Reason for Visit * Reason Onset Date Comments Referral 08/09/2024 Encounter Details Date Type Department Care Team (Late st Contact Info) Description 08/09/2024 Telephone [facility] MEDICINE [address] [place] [address] Diann Ramirez MD [address] [place], [place] [phone] Referral Social History Tobacco Use Types Packs/Day [...] Jimenez RN - 08/14/2024 12:07 PM EDT [employer] message informing pt referral for Neuro was sent to [facility] and pt should get a call [...] Description 11/16/2024 3:45 PM EST Office Visit [facility] MED & PEDS [address] [place] [address] Diann Ramirez MD [address] [place] [address] 12/20/2024 2:00 PM EST Telemedicine [facility] MED & PEDS [address] [place] [address] Naomi Reyes RN [address] [place] [address] 02/15/2025 1:30 PM EDT Office Visit [facility]S [address] [place] [address] Diann Ramirez MD [address] [place] [address] documented as of this encounter Visit Diagnoses Not on filedocumented in this encounter Additional Health Concerns Assessment Noted Time PHQ-9 Depression Total Score: 4 03/20/20 24 9:12 AM EDT documented as of this encounter Care Teams Bulker Relationship Specialty Start Date End Date Diann Ramirez MD [address] [place] [address] PCP - General Internal Medicine 07/16/12 documented as of this encounter
--- OUTSIDE RECORDS SUMMARY | 2024-11-15 18:00 | XMS_ITS | Encounter Summary ---
Author Organization [employer] Address [address] [facility] [address] [place] [address] Care Team Providers Care Tile Fitter Name Role Phone Diann Ramirez MD Primary Care Provider [phone] Encounter Details Date Type Department Care Team [...] [facility] PED[facility] [address] [place] [address] Diann Ramirez MD [address] [place] [address] 12/20/2024 2:00 PM EST Telemedicine [facility] MED & PEDS [address] [place] [address] Naomi Reyes RN [address] [place] [address] 02/15/2025 1:30 PM EDT Office Visit [facility] MED & PEDS [address] [place] [address] Diann Ramirez MD [address] [place] [address] documented as of this encounter Visit Diagnoses Not on filedocumented in this encounter Additional Health Concerns Assessment Noted Time PHQ-9 Depression Total Score: 4 03/20/20 24 9:12 AM EDT documented as of this encounter Care Teams Tile Fitter Relationship Specialty Start Date End Date Diann Ramirez MD [address] [place] [address] PCP - General Internal Medicine 07/16/12 documented as of this encounter
--- OUTSIDE RECORDS SUMMARY | 2024-11-15 18:00 | XMS_ITS | Encounter Summary ---
Author Organization [employer] Address 75 [facility] 7 [place] [address] Care Team Providers Care Director Of Corporate Strategy Name Role Phone Diann Ramirez MD Primary Care Provider [phone] Reason for Visit * Reason Onset Date Comments Appointment Request 06/11/2024 Encounter Details Date Type Department Care Team ([facility] st Contact Info) Description 06/11/2024 Telephone [facility] MEDICINE [address] [place] [address] Diann Ramirez MD [address] [place] [address] Appointment Request Social History Tobacco Use Types [...] Tc from pt calling in regards to CLAY PROCESSING LABOURER visit from 06/18 that was canceled and is requesting to reschedule. Please contact pt at [phone]. documented in this encounter Plan of Treatment Upcoming Encounters Date Type Department Care Team (Late st Contact Info) Description 11/16/2024 3:45 PM EST Office Visit [facility] [address] [place] [address] Diann Ramirez MD [address] [place] [address] 12/20/2024 2:00 PM EST Telemedicine [facility] [address] [place] [address] Naomi Reyes RN [address] [place] [address] 02/15/2025 1:30 PM EDT Office Visit [facility] [address] [place] [address] Diann Ramirez MD [address] [place] [address] documented as of this encounter Visit Diagnoses Not on filedocumented in this encounter Additional Health Concerns Assessment Noted Time PHQ-9 Depression Total Score: 4 03/20/20 24 9:12 AM EDT documented as of this encounter Care Teams Director Of Corporate Strategy Relationship Specialty Start Date End Date Diann Ramirez MD [address] [place] [address] PCP - General Internal Medicine 07/16/12 documented as of this encounter
--- OUTSIDE RECORDS SUMMARY | 2024-11-15 18:00 | XMS_ITS | Encounter Summary ---
Author Organization [employer] Address [address] [facility] 7t [place] [address] Care Team Providers Care Data Warehouse Consultant Name Role Phone Diann Ramirez MD Primary Care Provider +1 [phone] Encounter Details Date Type Department Care Team (Late st Contact Info) Description 11/11/2024 Orders Only [facility] External Provider, [facility] Social History Tobacco Use Types Packs/Day Years [...] Description 11/16/2024 3:45 PM EST Office Visit [facility] [address] [place] [address] Diann Ramirez MD [address] [place] [address] 12/20/2024 2:00 PM EST Telemedicine [facility] [address] [place] [address] Naomi Reyes RN [address] [place] [address] 02/15/2025 1:30 PM EDT Office Visit [facility] [address] [place] [address] Diann Ramirez MD [address] [place] [address] documented as of this encounter Procedures Procedure [...] EST Narrative 11/15/2024 3:30 PM EST ? [facility] ? [address] ?[place] [address] ?XRay Report ? Signed ? Patient: Stopa,Luc J ?MR#: [id number] ?? 78 ? : 1980 ?Acct:[id number] ? Age/Sex: 44 / M ?ADM Date: 11/15/24 ? Loc: HO.HOSX ? Attending Dr: Shreya Whelan PA-C ? Ordering Physician: Shreya Whelan PA-C ?? Date of Service: 11/15/24 ?? Procedure(s): XR ankle LT min 3V ?? Accession Number(s): [id number] ? cc: Diann Ramirez MD; Shreya Whelan [...] DD/ 1317 ? TD/TT: 11/15/24 1320 ? Dictating Machine Typist: ? Procedure Note Kateryna, Image - 11/15/2024 [facility] [address] [place] [address] [address] [place] [address] XRay Report Signed Patient: Luc Erickson R#: [id number] 78 : 1980Acct:[id number] Age/Sex: 44 / MADM Date: 11/15/24 Loc: IAN Attending Dr: Shreya Whelan PA-C Ordering Physician: Shreya Whelan PA-C Date of Service: 11/15/24 Procedure(s): XR ankle LT min 3V Accession Number(s): [id number] cc: Diann Ramirez MD; Shreya Whelan PA-C [...] 11/15/24 1527 DD/ 1317 TD/TT: 11/15/24 1320 Dictating Machine Typist: [facility] External Provider IMG XR PROCEDURES Final Result * XR Tibia Fibula 2 Views Left (11/11/2024 10:45 AM EST) Anatomical Region Laterality Modality Lower Extremities, Lower Leg Left Rad iographic Imaging 11/11/2024 10:4 5 AM EST Narrative 11/11/2024 11:32 AM EST ? [facility] ?[address] ?[place] [address] ?XRay Report ? Signed ? Patient: Stopa,Luc J ?MR#: [id number] ?? 78 ? : 1980 ?Acct:[id number] ? Age/Sex: 44 / M ?ADM Date: 01/23/25 ? Loc: HO.ED ? Attending Dr: ? Ordering Physician: Generic ED Physician ?? Date of Service: 11/11/24 ?? Procedure(s): XR tibia fibula LT 2V ?? Accession Number(s): [id number] ? cc: Diann Ramirez MD; Generic ED [...] DD/ 1045 ? TD/TT: 11/11/24 1100 ? Dictating Machine Typist: MSM ? Procedure Note Donoracioter, Image - 11/11/2024 [place] [address] XRay Report Signed Patient: Luc Erickson JMR#: [id number] 78 : 1980Acct:[id number] Age/Sex: 44 / MADM Date: 11/11/24 Loc: HO.ED Attending Dr: Ordering Physician: Generic ED Physician Date of Service: 11/11/24 Procedure(s): XR tibia fibula LT 2V Accession Number(s): [id number] cc: Diann Ramirez MD; Generic ED Physician [...] 11/11/24 1129 DD/ 1045 TD/TT: 11/11/24 1100 Dictating Machine Typist: MSM [facility] External Provider IMG XR PROCEDURES Final Result * XR Ankle 3+ Views Left (11/11/2024 10:45 AM EST) Anatomical Region Laterality Modality Lower Extremities, Ankle Left Radiogr aphic Imaging 11/11/2024 10:4 5 AM EST Narrative 11/11/2024 11:32 AM EST ? [facility] ?[address] ?[place] [address] ?XRay Report ? Signed ? Patient: DreLuc ?MR#: [id number] ?? 78 ? : 1980 ?Acct:[id number] ? Age/Sex: 44 / M ?ADM Date: 11/11/24 ? Loc: HO.ED ? Attending Dr: ? Ordering Physician: Generic ED Physician ?? Date of Service: 11/11/24 ?? Procedure(s): XR ankle LT min 3V ?? Accession Number(s): [id number] ? cc: Diann Ramirez MD; Generic ED [...] DD/ 1045 ? TD/TT: 11/11/24 1100 ? Dictating Machine Typist: MSM ? Procedure Note Donotuseinterpreter, Image - 11/11/[address] [address] XRay Report Signed Patient: Luc Erickson JMR#: [id number] 78 : 1980Acct:[id number] Age/Sex: 44 / MADM Date: 11/11/24 Loc: HO.ED Attending Dr: Ordering Physician: Generic ED Physician Date of Service: 11/11/24 Procedure(s): XR ankle LT min 3V Accession Number(s): [id number] cc: Diann Ramirez MD; Generic ED Physician [...] by: Livan Swenson MD 11/11/2024 11:29 AM [facility] Dictated By: Livan Swenson MD Signed By: <Electronically signed by Livan Swenson MD in OV> 11/11/24 1129 DD/ 1045 TD/TT: 11/11/24 1100 Dictating Machine Typist: FEMI [facility] External Provider IMG XR PROCEDURES Final Result documented in this encounter Visit Diagnoses Not on filedocumented in this encounter Additional Health Concerns Assessment Noted Time PHQ-9 Depression Total Score: 4 03/20/20 24 9:12 AM EDT documented as of this encounter Care Teams Data Warehouse Consultant Relationship Specialty Start Date End Date Diann Ramirez MD [address] [place] [address] PCP - General Internal Medicine 07/16/12 documented as of this encounter
--- OUTSIDE RECORDS SUMMARY | 2024-11-15 18:00 | XMS_ITS | Encounter Summary ---
Author Organization [employer] Address 75 [facility] 7t [place] [address] Care Team Providers Care Tool Grinder Set Up Operator Gear Name Role Phone Diann Ramirez MD Primary Care Provider +1 [phone] Encounter Details Date Type Department Care Team (Late st Contact Info) Description 05/18/2024 Orders Only [facility] [address] [place], [place] [phone] Provider, MD Shar Social History Tobacco Use [...] [facility] [address] [place] [address] Diann Ramirez MD 505 [place] [address] 12/20/2024 2:00 PM EST Telemedicine [facility] [address] [place] [address] Naomi Reyes RN [address] [place] [address] 02/15/2025 1:30 PM EDT Office Visit [facility] [address] [place] [address] Diann Ramirez MD 505 [place] [address] documented as of this encounter Procedures Procedure [...] documented as of this encounter Care Teams Tool Grinder Set Up Operator Gear Relationship Specialty Start Date End Date Diann Ramirez MD [address] [place] [address] PCP - General Internal Medicine 07/16/12 documented as of this encounter
--- OUTSIDE RECORDS SUMMARY | 2024-11-15 18:00 | XMS_ITS | Clinical Summary ---
Author Organization [employer] Address 75 [facility] 7t [place] [address] Care Team Providers Care Paratransit Driver Name Role Phone Diann Ramirez MD Primary Care Provider [phone] Allergies Active Allergy Reactions Criticality Noted Date [...] 23 Active ergocalciferol (Vitamin D2) 1.25 MG (97803 UT) capsuleIndicati ons:Vitamin D deficiency Take 1 [...] and protective factors. Referral placed sent to [facility] on 07/21 for OP services. Provided [...] intervention , Patient [facility], Patient to engage [...] and protective factors. Referral placed sent to [facility] on 07/21 for OP services. Provided [...] intervention , [facility] team [facility], Patient to engage [...] [facility] [address] [place] [address] Diann Ramirez MD Primary hypertension (Primary Dx); Other closed fracture of distal end of left fibula, initial encounter; Dietary counseling; Exercise counseling; Class 2 severe obesity due to excess calories with serious comorbidity and body mass index (BMI) of 35.0 to 35.9 in adult ([facility]) 11/15/2024 Travel 11/11/2024 Orders Only [facility] External Provider, [facility] 10/27/2024 Refill [facility] [address] [place] [address] Diann Ramirez MD Anxiety 10/01/2024 Telephone [facility] [address] [place] [address] Diann Ramirez MD Results 10/01/2024 Refill [facility] [address] [place] [address] Diann Ramirez MD Anxiety 10/01/2024 Orders Only [facility] [address] [place] [address] Diann Ramirez MD Hiatal hernia (Primary Dx) 09/22/2024 9:30 AM EST Clinical Support [facility] [address] [place] [address] Naomi Reyes RN Anxiety 09/22/2024 Telephone [facility] [address] [place] [address] Naomi Reyes RN 09/22/2024 Travel 09/02/2024 Refill [facility] [address] [place] [address] Naomi Reyes, RN Anxiety 09/02/2024 Telephone [facility] MEDICINE [address] [place] [address] Diann Ramirez MD Med Refill from Last [...] Upcoming Encounters Date Type Department Care Team ([facility] st Contact Info) Description 11/16/2024 3:45 PM EST Office Visit [facility] [address] [place] [address] Diann Ramirez MD [address] [place] [address] 12/20/2024 2:00 PM EST Telemedicine [facility] [address] [place] [address] Naomi Reyes RN [address] [place] [address] 02/15/2025 1:30 PM EDT Office Visit [facility] [address] [place] [address] Diann Ramirez MD [address] [place] [address] Health Maintenance Due Date Last Done Comments [...] [address] ?[place] [address] ?XRay Report ? Signed ? Patient: Stopa,Luc J ?MR#: [id number] ?? 78 ? : 1980 ?Acct:[id number] ? Age/Sex: 44 / M ?ADM Date: 11/15/24 ? Loc: HO.HOSX ? Attending Dr: Shreya Whelan PA-C ? Ordering Physician: Shreya Whelan PA-C ?? Date of Service: 11/15/24 ?? Procedure(s): XR ankle LT min 3V ?? Accession Number(s): [id number] ? cc: Diann Ramirez MD; Shreya Whelan [...] DD/ 1317 ? TD/TT: 11/15/24 1320 ? Exhibition Carver: ? Procedure Note Kateryna, Image - 11/15/2024 [facility] [address] [place] [address] XRay Report Signed Patient: Luc Erickson JMR#: [id number] 78 : 1980Acct:[id number] Age/Sex: 44 / MADM Date: 11/15/24 Loc: HOYasirHOSX Attending Dr: Shreya Whelan PA-C Ordering Physician: Shreya Whelan PA-C Date of Service: 11/15/24 Procedure(s): XR ankle LT min 3V Accession Number(s): [id number] cc: Diann Ramirez MD; Shreya Whelan PA-C [...] 11/15/24 1527 DD/ 1317 TD/TT: 11/15/24 1320 Exhibition Carver: [facility] External Provider IMG XR PROCEDURES Final Result * XR Tibia Fibula 2 Views Left (11/11/2024 10:45 AM EST) Anatomical Region Laterality Modality Lower Extremities, Lower Leg Left Rad iographic Imaging 11/11/2024 10:4 5 AM EST Narrative 11/11/2024 11:32 AM EST ? [facility] ?[address] ?[place] [address] ?XRay Report ? Signed ? Patient: Stopa,Luc J ?MR#: [id number] ?? 78 ? : 1980 ?Acct:[id number] ? Age/Sex: 44 / M ?ADM Date: 11/11/24 ? Loc: HO.ED ? Attending Dr: ? Ordering Physician: Generic ED Physician ?? Date of Service: 11/11/24 ?? Procedure(s): XR tibia fibula LT 2V ?? Accession Number(s): [id number] ? cc: Diann Ramirez MD; Generic ED [...] DD/ 1045 ? TD/TT: 11/11/24 1100 ? Exhibition Carver: MSM ? Procedure Note Kateryna, Colt - 11/11/2024 [place] [address] XRay Report Signed Patient: Luc Erickson JMR#: [id number] 78 : 1980Acct:[id number] Age/Sex: 44 / MADM Date: 11/11/24 Loc: HO.ED Attending Dr: Ordering Physician: Generic ED Physician Date of Service: 11/11/24 Procedure(s): XR tibia fibula LT 2V Accession Number(s): [id number] cc: Diann Ramirez MD; Generic ED Physician [...] 11/11/24 1129 DD/ 1045 TD/TT: 11/11/24 1100 Exhibition Carver: FEMI us [facility] External Provider IMG XR PROCEDURES Final Result * FL Esophagus Barium Swallow (09/30/2024 8:33 AM EST) Anatomical Region Laterality Modality Head, Neck Radiographic Lacey ging 09/30/2024 8:33 AM EST Narrative 09/30/2024 4:36 PM EST ? [facility] ?[address] ?[place] [address] ? Fluoroscopy Report ? Signed ? Patient: Stopa,Luc J ?MR#: [id number] ?? 78 ? : 1980 ?Acct:[id number] ? Age/Sex: 44 / M ?ADM Date: 09/30/24 ? Loc: HO.XRAY ? Attending Dr: Diann Ramirez MD ? Ordering Physician: Diann Ramirez MD ?? Date of Service: 09/30/24 ?? Procedure(s): FL barium swallow ?? Accession Number(s): [id number] ? cc: Diann Ramirez MD ? EXAMINATION: [...] above. ? This procedure was performed by Perfetco Babb PA-C, and supervised by ?? Dr. Ruiz ? Electronically signed by: ??Carter Ruiz MD ??09/30/2024 04:33 PM EST RP ? Dictated By: ?Perfecto Babb ? Signed By: ?<Electronically signed by Perfecto Babb in OV> ? 09/30/24 1633 ?<Electronically signed by Carter Ruiz MD in OV> ? 09/30/24 1636 ? DD/ 0833 ? TD/TT: 09/30/24 0904 ? Exhibition Carver: ? Procedure Note Donotuseinterpreter, Image - 10/01/[address] [address] Fluoroscopy Report Signed Patient: Luc Erickson JMR#: [id number] 78 : 1980Acct:[id number] Age/Sex: 44 / MADM Date: 09/30/24 Loc: HO.XRAY Attending Dr: Diann Ramirez MD Ordering Physician: Diann aRmirez MD Date of Service: 09/30/24 Procedure(s): FL barium swallow Accession Number(s): [id number] cc: Diann Ramirez MD EXAMINATION: XR FLUOROSCOPY [...] 09/30/24 1636 DD/ 0833 TD/TT: 09/30/24 0904 Exhibition Carver: us Diann Ramirez MD IMG FLUOROSCOPY PROCEDURES Edited Result - Final * POCT COLLIN-14 Urine Drug Screen (09/22/2024 9:58 AM EST) Benzodiazepines Screen, Urine Positive Buprenophine Screen, Urine Positive Urine Urine specimen obtained by clean catch procedure / Unknown 09/22/2024 9:58 AM EST Narrative Naomi Reyes, RN - 09/22/2024 9:58 AM EST Lot# [id number] Exp: 09-25-25 us Diann Ramirez MD POINT OF CARE TEST ENTER/ED IT ORDERABLES Final Result * (ABNORMAL) Lipid Panel, Standard (03/11/2024 1:07 PM EDT) Triglycerides 40 <150 mg/dL [facility] Comment:Desirable Triglyceri de: less than 150 mg/dLBorderline High Triglyceride 150-199 mg/dLHigh Triglyceride: 200-499 mg/dLVery High Triglyceride: greater than or equal to 5OO mg/dL Cholesterol 141 <200 mg/dL [facility] Comment:Desirable Cholestero l: less than 200 mg/dLBorderline High Cholesterol: 200-239 mg/dLHigh Cholesterol: greater than 239 mg/dL LDL Cholesterol Calculated 93 <100 mg/dL [facility] Comment:Desirable LDL: less than 100 mg/dLNear Optimal/Above Optimal LDL: 110- 129 mg/dLBorderline High LDL: 130-159 mg/dLHigh LDL: 160-189 mg/dLVery High LDL: greater than or equal to 190 mg/dL HDL Cholesterol 40(L) >40 mg/dL [facility] Comment:Desirable HDL: great er than 40 mg/dL Note: This HDL assay may give artificially low results in patients with liver disease. Blood Venous blood specimen / Unknown 03/11/2024 1:07 PM EDT 03/11/2024 2:22 PM EDT us Diann Ramirez MD LAB BLOOD ORDERABLES Final Result Performing Organization Address [facility]/ZIP Co de Phone Number [facility] [address] [place] [phone] * HIV AB/AG (08/07/2022 2:03 PM EDT) [facility] HIV AB/AG Nonreactive Nonreactive [facility] Comment: HIV-1 p24 Ag and/or HIV-1/HIV-2 [...] detection of this assay. ?? The Cha Finisher Map And Chart HIV Ag/Ab Combo assay result and supplemental assay results should be interpreted in conjunction with the patient's clinical presentation, history and other laboratory results. ??If the results are inconsistent with clinical evidence, additional testing is suggested to confirm the result. 08/07/2022 2:03 PM EDT us Tra Linton MD HISTORICAL/NON ORDERAB LE LABS Final Result [facility] * HEPATITIS C AB W/REFL TO HCV RNA, QN, PCR (07/01/2022 10:13 AM EDT) HEPATITIS C ANTIBODY NON-REACT JESSEE NON-REACT JESSEE [facility] INDEX 0.14 <1.00 [facility] Comment: ?? HCV antibody was non-reactive. There is no laboratory ?? evidence of HCV infection. ?? In most cases, no further action is required. However, if recent HCV exposure is suspected, a test for HCV RNA (test code 25050) is suggested. ?? For additional information please refer to http://education.[employer]/faq/XXT63b5 (This link is being provided for informational/ educational purposes only.) ?? 07/01/2022 10:1 3 AM EDT us Diann Ramirez MD HISTORICAL/NON ORDERABLE PUMA JAMESON Final Result [facility] [address] from Last 3 Months or Most Recently Relevant to Health Maintenance Insurance [facility] C3 Care Teams Paratransit Driver Relationship Specialty Start Date End Date Diann Ramirez MD [address] [place] [address] [place] [address] PCP - General Internal Medicine 07/16/12
--- OUTSIDE RECORDS SUMMARY | 2024-11-15 18:00 | XMS_ITS | Encounter Summary ---
Author Organization [employer] Address 75 [facility] 7 [place] [address] Care Team Providers Care Applied Computer Science Professor Name Role Phone Diann Ramirez MD Primary Care Provider [phone] Reason for Visit * Reason Onset Date Comments Med Refill 07/01/2024 Encounter Details Date Type Department Care Team (Late st Contact Info) Description 07/01/2024 Telephone [facility] MEDICINE [address] [place] [address] Diann Ramirez MD [address] [place] [address] Med Refill Social History Tobacco Use Types [...] [facility] [address] [place] [address] Diann Ramirez MD [address] [place] [address] 12/20/2024 2:00 PM EST Telemedicine [facility] [address] [place] [address] Naomi Reyes RN [address] [place] [address] 02/15/2025 1:30 PM EDT Office Visit [facility] [address] [place] [address] Diann Ramirez MD [address] [place] [address] documented as of this encounter Visit Diagnoses Not on filedocumented in this encounter Additional Health Concerns Assessment Noted Time PHQ-9 Depression Total Score: 4 03/20/20 24 9:12 AM EDT documented as of this encounter Care Teams Applied Computer Science Professor Relationship Specialty Start Date End Date Diann Ramirez MD [address] [place] [address] PCP - General Internal Medicine 07/16/12 documented as of this encounter
--- OUTSIDE RECORDS SUMMARY | 2024-11-15 18:00 | XMS_ITS | Encounter Summary ---
Author Organization [employer] Address 75 [facility] 7 [place] [address] Care Team Providers Care Conveyor Man Name Role Phone Diann Ramirez MD Primary Care Provider [phone] Reason for Visit * Reason Onset Date Comments Med Refill 05/31/2024 Encounter Details Date Type Department Care Team (Late st Contact Info) Description 05/31/[address] [facility] MEDICINE [address] [place] [address] Diann Ramirez MD [address] [place] [address] Med Refill Social History Tobacco Use Types [...] 1 MG tablet To be sent to: [id number] - [place], [place] - [address] [facility] documented in this encounter Plan of Treatment Upcoming Encounters Date Type Department Care Team (Late st Contact Info) Description 11/16/2024 3:45 PM EST Office Visit [facility] [address] [place] [address] Diann Ramirez MD [address] [place] [address] 12/20/2024 2:00 PM EST Telemedicine [facility] [address] [place] [address] Naomi Reyes RN [address] [place] [address] 02/15/2025 1:30 PM EDT Office Visit [facility] [address] [place] [address] Diann Ramirez MD [address] [place] [address] documented as of this encounter Visit Diagnoses Not on filedocumented in this encounter Additional Health Concerns Assessment Noted Time PHQ-9 Depression Total Score: 4 03/20/20 24 9:12 AM EDT documented as of this encounter Care Teams Conveyor Man Relationship Specialty Start Date End Date Diann Ramirez MD [address] [place] [address] PCP - General Internal Medicine 07/16/12 documented as of this encounter
--- OUTSIDE RECORDS SUMMARY | 2024-11-15 18:00 | XMS_ITS | Encounter Summary ---
Author Organization [employer] Address 75 [facility] 7t [place] [address] Care Team Providers Care Plug Paster Name Role Phone Diann Ramirez MD Primary Care Provider [phone] Encounter Details Date Type Department Care Team (Late st Contact Info) Description 10/01/2024 Orders Only [facility]S [address] [place], [place] [id number] Diann Ramirez MD [address] [place] [address] Hiatal hernia (Primary Dx) Social History Tobacco [...] 11/16/2024 3:45 PM EST Office Visit [facility] [address] [place] [address] Diann Ramirez MD [address] [place] [address] 12/20/2024 2:00 PM EST Telemedicine [facility] [address] [place] [address] Naomi Reyes, RN [address] [place] [address] 02/15/2025 1:30 PM EDT Office Visit [facility] [address] [place] [address] Diann Ramirez MD [address] [place] [address] documented as of this encounter Visit Diagnoses Diagnosis Hiatal hernia- Primary Diaphragmatic hernia without mention of obstruction or gangrene documented in this encounter Additional Health Concerns Assessment Noted Time PHQ-9 Depression Total Score: 4 03/20/20 24 9:12 AM EDT documented as of this encounter Care Teams Plug Paster Relationship Specialty Start Date End Date Diann Ramirez MD [address] [place] [address] PCP - General Internal Medicine 07/16/12 documented as of this encounter
--- OUTSIDE RECORDS SUMMARY | 2024-11-15 18:00 | XMS_ITS | Encounter Summary ---
Author Organization [employer] Address 75 [facility] 7 [place] [address] Care Team Providers Care Environmental Services Project Manager Name Role Phone Diann Ramirez MD Primary Care Provider [phone] Reason for Visit * Reason Onset Date Comments Appointment Request 06/17/2024 Encounter Details Date Type Department Care Team ([facility] st Contact Info) Description 06/17/2024 Telephone [facility] MEDICINE [address] [place] [address] Diann Ramirez MD [address] [place] [address] Appointment Request Social History Tobacco Use Types [...] would like a sooner appt than what newswriter offered documented in this encounter Plan of Treatment Upcoming Encounters Date Type Department Care Team (Late st Contact Info) Description 11/16/2024 3:45 PM EST Office Visit [facility] [address] [place] [address] Diann Ramirez MD [address] [place] [address] 12/20/2024 2:00 PM EST Telemedicine [facility] [address] [place] [address] Naomi Reyes RN 505 [place] [address] 02/15/2025 1:30 PM EDT Office Visit [facility] [address] [place] [address] Diann Ramirez MD [address] [place] [address] documented as of this encounter Visit Diagnoses Not on filedocumented in this encounter Additional Health Concerns Assessment Noted Time PHQ-9 Depression Total Score: 4 03/20/20 24 9:12 AM EDT documented as of this encounter Care Teams Environmental Services Project Manager Relationship Specialty Start Date End Date Diann Ramirez MD [address] [place] [address] PCP - General Internal Medicine 07/16/12 documented as of this encounter
--- OUTSIDE RECORDS SUMMARY | 2024-11-15 18:00 | XMS_ITS | Encounter Summary ---
Author Organization [employer] Address 75 [facility] 7 [place] [address] Care Team Providers Care Tile Finisher Name Role Phone Diann Ramirez MD Primary Care Provider +1 [phone] Reason for Visit * Reason Onset Date Comments Appointment Request 01/06/2023 Encounter Details Date Type Department Care Team (Late st Contact Info) Description 01/06/2023 Telephone [facility] MEDICINE [address] [place] [address] Diann Ramirez MD [address] [place] [address] Appointment Request Social History Tobacco Use Types [...] requesting to r/s appt on 01/06/23 ( TIPPING MACHINE OPERATOR AUTOMATIC Televisit ) documented in this encounter Plan of Treatment Upcoming Encounters Date Type Department Care Team (Late st Contact Info) Description 11/16/2024 3:45 PM EST Office Visit [facility] MED & PEDS [address] [place] [address] Diann Ramirez MD [address] [place] [address] 12/20/2024 2:00 PM EST Telemedicine [facility] MED & PEDS [address] [place] [address] Naomi Reyes, TABATHA 505 [place] [address] 02/15/2025 1:30 PM EDT Office Visit [facility] MED & PEDS [address] [place] [address] Diann Ramirez MD [address] [place] [address] documented as of this encounter Visit Diagnoses Not on filedocumented in this encounter Additional Health Concerns Assessment Noted Time PHQ-9 Depression Total Score: 1 10/31/19 23 3:59 PM EST documented as of this encounter Care Teams Tile Finisher Relationship Specialty Start Date End Date Diann Ramirez MD [address] [place] [address] PCP - General Internal Medicine 07/16/12 documented as of this encounter
--- OUTSIDE RECORDS SUMMARY | 2024-11-15 18:00 | XMS_ITS | Encounter Summary ---
Author Organization [employer] Address [address] [facility] 7 [place] [address] Care Team Providers Care Sequins Winder Name Role Phone Diann Ramirez MD Primary Care Provider +1 [phone] Reason for Visit * Reason Onset Date Comments Med Refill 07/28/2024 Encounter Details Date Type Department Care Team (Late st Contact Info) Description 07/28/2024 Telephone [facility] MEDICINE [address] [place] [address] Diann Ramirez MD [address] [place], [place] [phone] Med Refill Social History Tobacco Use Types [...] 1 MG tablet To be sent to: [id number] - [place] - 1 [facility] documented in this encounter Plan of Treatment Upcoming Encounters Date Type Department Care Team (Late st Contact Info) Description 11/16/2024 3:45 PM EST Office Visit [facility] MED & PEDS [address] [place] [address] Diann Ramirez MD [address] [place] [address] 12/20/2024 2:00 PM EST Telemedicine [facility] MED & PEDS [address] [place] [address] Naomi Reyes RN 505 [place] [address] 02/15/2025 1:30 PM EDT Office Visit [facility] MED & PEDS [address] [place] [address] Diann Ramirez MD [address] [place] [address] documented as of this encounter Visit Diagnoses Not on filedocumented in this encounter Additional Health Concerns Assessment Noted Time PHQ-9 Depression Total Score: 4 03/20/20 24 9:12 AM EDT documented as of this encounter Care Teams Sequins Winder Relationship Specialty Start Date End Date Diann Ramirez MD [address] [place] [address] PCP - General Internal Medicine 07/16/12 documented as of this encounter
--- OUTSIDE RECORDS SUMMARY | 2024-11-15 18:00 | XMS_ITS | Encounter Summary ---
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 Please contact pt at [phone]. documented in this encounter Plan of Treatment Upcoming Encounters Date Type Department Care Team (Late st Contact Info) Description 11/16/2024 3:45 PM EST Office Visit [facility] MED & PEDS [address] [place] [address] Diann Ramirez MD [address] [place] [address] 12/20/2024 2:00 PM EST Telemedicine [facility] MED & PEDS [address] [place] [address] Naomi Reyes RN [address] [place] [address] 02/15/2025 1:30 PM EDT Office Visit [facility] MED & PEDS [address] [place] [address] Diann Ramirez MD [address] [place] [address] documented as of this encounter Visit Diagnoses Not on filedocumented in this encounter Additional Health Concerns Assessment Noted Time PHQ-9 Depression Total Score: 4 03/20/20 24 9:12 AM EDT documented as of this encounter Care Teams Accounting Intern Relationship Specialty Start Date End Date Dainn Ramirez MD [address] [place] [address] PCP - General Internal Medicine 07/16/12 documented as of this encounter
--- OUTSIDE RECORDS SUMMARY | 2024-11-15 18:00 | XMS_ITS | Encounter Summary ---
Author Organization [employer] Address 75 [facility] 7 [place] [address] Care Team Providers Care Business Banking Sales Assistant Name Role Phone Diann Ramirez MD Primary Care Provider [phone] [phone] Reason for Visit * Reason Onset Date Comments Med Refill 09/02/2024 Encounter Details Date Type Department Care Team (Late st Contact Info) Description 09/02/2024 Telephone [facility] MEDICINE [address] [place] [address] Diann Ramirez MD [address] [place] [address] Med Refill Social History Tobacco Use Types [...] 1 MG tablet To be sent to: [id number] - [place], [place] - 1 [facility] [place] [facility] [place] & TAM[place] documented in this encounter Plan of Treatment Upcoming Encounters Date Type Department Care Team (Late st Contact Info) Description 11/16/2024 3:45 PM EST Office Visit [facility] MED & PEDS [address] [place] [address] Diann Ramirez MD [address] [place] [address] 12/20/2024 2:00 PM EST Telemedicine [facility] MED & PEDS [address] [place] [address] Naomi Reyes RN [address] [place] [address] 02/15/2025 1:30 PM EDT Office Visit [facility] MED & PEDS [address] [place] [address] Diann Ramirez MD [address] [place] [address] documented as of this encounter Visit Diagnoses Not on filedocumented in this encounter Additional Health Concerns Assessment Noted Time PHQ-9 Depression Total Score: 4 03/20/20 24 9:12 AM EDT documented as of this encounter Care Teams Business Banking Sales Assistant Relationship Specialty Start Date End Date Diann Ramirez MD [address] [place] [address] PCP - General Internal Medicine 07/16/12 documented as of this encounter
--- OUTSIDE RECORDS SUMMARY | 2024-11-15 18:00 | XMS_ITS | Encounter Summary ---
Author Organization [employer] Address [address] [facility] 7 [place] [address] Care Team Providers Care Meat Hanger Name Role Phone Diann Ramirez MD Primary Care Provider [phone] [phone] Reason for Visit * Reason Onset Date Comments Med Refill 10/27/2024 Encounter Details Date Type Department Care Team ([facility] st Contact Info) Description 10/27/2024 Refill [facility] MED & PEDS [address] [place] [address] Diann Ramirez MD [address] [place] [address] Anxiety Social History Tobacco Use Types Packs/Day [...] 1 MG tablet To be sent to: [id number] - [place], [place] - 1 [facility] [place] [facility] documented in this encounter Plan of Treatment Upcoming Encounters Date Type Department Care Team (Late st Contact Info) Description 11/16/2024 3:45 PM EST Office Visit [facility] MED & PEDS [address] [place] [address] Diann Ramirez MD [address] [place] [address] 12/20/2024 2:00 PM EST Telemedicine [facility] MED & PEDS [address] [place] [address] Naomi Reyes, TABATHA 505 [place] [address] 02/15/2025 1:30 PM EDT Office Visit [facility] MED & PEDS [address] [place] [address] Diann Ramirez MD [address] [place] [address] documented as of this encounter Visit Diagnoses Diagnosis Anxiety Anxiety state, unspecified documented in this encounter Additional Health Concerns Assessment Noted Time PHQ-9 Depression Total Score: 4 03/20/20 24 9:12 AM EDT documented as of this encounter Care Teams Meat Hanger Relationship Specialty Start Date End Date Diann Ramirez MD [address] [place] [address] PCP - General Internal Medicine 07/16/12 documented as of this encounter
--- OUTSIDE RECORDS SUMMARY | 2024-11-15 18:01 | XMS_ITS | Encounter Summary ---
Author Organization [employer] Address 75 [facility] 7t [place] [address] Care Team Providers Care Reel Repairer Name Role Phone Diann Ramirez MD Primary Care Provider [phone]- [phone] Encounter Details Date Type Department Care Team (Late Contact Info) Description 10/18/2022 Orders Only [facility] MEDICINE [address] [place], [place] [phone] Diann Ramirez MD [address] [place], [place] [phone] Acute cough; Bronchospasm Social History Tobacco Use [...] Description 11/16/2024 3:45 PM EST Office Visit [facility] MED & PEDS [address] [place], [place] [phone] Diann Ramirez MD [address] [place], [place] [phone] 12/20/2024 2:00 PM EST Telemedicine [facility] MED & PEDS [address] [place] [address] Naomi Reyes, TABATHA [address] [place] [address] 02/15/2025 1:30 PM EDT Office Visit [facility] MED & PEDS [address] [place] [address] Diann Ramirez MD [address] [place] [address] documented as of this encounter Visit Diagnoses Diagnosis Acute cough Bronchospasm Acute bronchospasm documented in this encounter Care Teams Reel Repairer Relationship Specialty Start Date End Date Diann Ramirez MD [address] [place] [address] PCP - General Internal Medicine 07/16/12 documented as of this encounter
--- OUTSIDE RECORDS SUMMARY | 2024-11-15 18:01 | XMS_ITS | Encounter Summary ---
Author Organization [employer] Address [address] [facility] 7 [place] [address] Care Team Providers Care Trashman Name Role Phone Diann Ramirez MD Primary Care Provider +1 [phone] Reason for Visit * Reason Onset Date Comments Med Refill 10/25/2022 Encounter Details Date Type Department Care Team (Late st Contact Info) Description 10/25/2022 Telephone [facility] MEDICINE [address] [place], [place] [phone] Diann Ramirez MD [address] [place], [place] [phone] Med Refill Social History Tobacco Use Types [...] for lorazepam 1 mg. Please contact at [phone] documented in this encounter Plan of Treatment Upcoming Encounters Date Type Department Care Team (Late st Contact Info) Description 11/16/2024 3:45 PM EST Office Visit [facility] MED & PEDS [address] [place] [address] Diann Ramirez MD [address] [place] [address] 12/20/2024 2:00 PM EST Telemedicine [facility] MED & PEDS [address] [place] [address] Naomi Reyes RN [address] [place] [address] 02/15/2025 1:30 PM EDT Office Visit [facility] MED & PEDS [address] [place] [address] Diann Ramirez MD [address] [place] [address] documented as of this encounter Visit Diagnoses Not on filedocumented in this encounter Care Teams Trashman Relationship Specialty Start Date End Date Diann Ramirez MD [address] [place] [address] PCP - General Internal Medicine 07/16/12 documented as of this encounter
--- OUTSIDE RECORDS SUMMARY | 2024-11-15 18:01 | XMS_ITS | Encounter Summary ---
Author Organization [employer] Address [address] [place] [address] 7 [place] [address] Care Team Providers Care Youtuber Name Role Phone Diann Ramirez MD Primary Care Provider +1 [phone] Reason for Referral * Consultation (Routine) - Closed Specialty Diagnoses / Procedures Referred By Contcary t Referred To Contact Behavioral Health Diagnoses Anxiety Diann Ramirez MD [address] [place] [address] Phone: tel: fax: Referral ID Status Reason Start Date Expiration Date V isits Requested Visits Authorized [id number] Closed Specialty Services Required 03/30/2024 03/30/2025 1 1 Encounter Details Date Type Department Care Team ([facility] st Contact Info) Description 03/30/2024 Orders Only [facility] MED & PEDS [address] [place] [address] Diann Ramirez MD [address] [place] [address] Anxiety (Primary Dx) Social History Tobacco Use [...] [facility] [address] [place] [address] Diann Ramirez MD [address] [place] [address] 12/20/2024 2:00 PM EST Telemedicine [facility] MED & PEDS [address] [place] [address] Naomi Reyes RN [address] [place] [address] 02/15/2025 1:30 PM EDT Office Visit [facility] MED & PEDS [address] [place] [address] Diann Ramirez MD [address] [place] [address] Scheduled Referrals Name Type Priority Associated Diagnoses Order Schedule Referral to Behavioral Health Outpatient Referral Routine Anxiety Expected: 03/30/2024 (Approximate), Expires: 03/30/2025 documented as of this encounter Visit Diagnoses Diagnosis Anxiety- Primary Anxiety state, unspecified documented in this encounter Additional Health Concerns Assessment Noted Time PHQ-9 Depression Total Score: 4 03/20/20 24 9:12 AM EDT documented as of this encounter Care Teams Youtuber Relationship Specialty Start Date End Date Diann Ramirez MD [address] [place] [address] PCP - General Internal Medicine 07/16/12 documented as of this encounter
--- OUTSIDE RECORDS SUMMARY | 2024-11-15 18:01 | XMS_ITS | Encounter Summary ---
Author Organization [employer] Address [address] [place] [address] 7[address] [place] [address] Care Team Providers Care Recessing Machine Operator Name Role Phone Diann Ramirez MD Primary Care Provider [phone] Reason for Referral * Consultation (Routine) - Closed Specialty Diagnoses / Procedures Referred By Dania blackman Referred To Contact Hematology and Oncology Diagnoses Microcytic anemia Bicytopenia Diann Ramirez MD [address] [place] [address] Phone: tel: fax: Cornell Culver MD [address] [place] [address] Phone: tel: fax: Referral ID Status Reason Start Date Expiration Date V isits Requested Visits Authorized [id number] Closed Specialty Services Required 03/16/2024 03/16/2025 1 1 * Imaging (Routine) - Closed Specialty Diagnoses / Procedures Referred By Contcary t Referred To Contact Diagnoses Numbness of right foot Numbness of left foot Procedures EMG Diann Ramirez MD [address] [place] [address] Phone: tel: fax: [address] Phone: tel: fax: Referral ID Status Reason Start Date Expiration Date Visits Re quested Visits Authorized [id number] Closed 03/16/2024 03/16/2025 1 1 Encounter Details Date Type Department Care Team (Late Contact Info) Description 03/12/2024 Orders Only [facility] MED & PEDS [address] [place] [address] Diann Ramirez MD [address] [place] [address] Microcytic anemia (Primary Dx); Vitamin D deficiency; [...] Description 11/16/2024 3:45 PM EST Office Visit [facility] [address] [place] [address] Diann Ramirez MD [address] [place] [address] 12/20/2024 2:00 PM EST Telemedicine [facility] [address] [place] [address] Naomi Reyes RN [address] [place] [address] 02/15/2025 1:30 PM EDT Office Visit [facility]ED[facility] [address] [place] [address] Diann Ramirez MD [address] [place] [address] Scheduled Orders Name Type Priority Associated Diagnoses [...] EDT Narrative 03/24/2024 3:35 PM EDT ? [facility] ?[address] ?[place] [address] ? CT Scan Report ? Signed ? Patient: Luc Erickson ?MR#: [id number] ?? 78 ? : 1980 ?Acct:[id number] ? Age/Sex: 43 / M ?ADM Date: 03/24/24 ? Loc: HO.ED ? Attending Dr: ? Ordering Physician: Phani Gamino DO ?? Date of Service: 03/24/24 ?? Procedure(s): CT head/brain wo IV con ?? Accession Number(s): [id number] ? cc: Diann Ramirez MD; Phani Gamino [...] 1531 ? DD/ 1423 ? TD/TT: ? Director Of Veterans Affairs: BA ? Procedure Note Donoracioter, Image - 03/24/[address] [place] [address] [address] Scan Report Signed Patient: Luc Erickson JMR#: [id number] [birth year] : 1980Acct:[id number] Age/Sex: 43 / MADM Date: 03/24/24 Loc: HO.ED Attending Dr: Ordering Physician: Phani Gamino DO Date of Service: 03/24/24 Procedure(s): CT head/brain wo IV con Accession Number(s): [id number] cc: Diann Ramirez MD; Phani Gamino DO [...] in OV> 03/24/24 1531 DD/ 1423 TD/TT: Director Of Veterans Affairs: CARMEN [facility] External Provider IMG CT PROCEDURES Final Result * XR Chest 2 Views (03/24/2024 2:00 PM EDT) Anatomical Region Laterality Modality Chest Radiographic Lacey ging 03/24/2024 2:00 PM EDT Narrative 03/24/2024 3:11 PM EDT ? [facility] ?[address] ?[place] [address] ?XRay Report ? Signed ? Patient: Stopa,Luc J ?MR#: [id number] ?? 78 ? : 1980 ?Acct:[id number] ? Age/Sex: 43 / M ?ADM Date: 03/24/24 ? Loc: HO.ED ? Attending Dr: ? Ordering Physician: Phani Gamino DO ?? Date of Service: 03/24/24 ?? Procedure(s): XR chest 2V ?? Accession Number(s): [id number] ? cc: Diann Ramirez MD; hPani Gamino DO ? EXAMINATION: ?? XR CHEST [...] 1507 ? DD/ 1400 ? TD/TT: ? Director Of Veterans Affairs: ? Procedure Note Donotuseinterpreter, Image - 03/24/[address] [address] XRay Report Signed Patient: Luc Erickson JMR#: [id number] [birth year] : 1980Acct:[id number] Age/Sex: 43 / MADM Date: 03/24/24 Loc: HO.ED Attending Dr: Ordering Physician: Phani Gamino DO Date of Service: 03/24/24 Procedure(s): XR chest 2V Accession Number(s): [id number] cc: Diann Ramirez MD; Phani Gamino DO [...] in OV> 03/24/24 1507 DD/ 1400 TD/TT: Director Of Veterans Affairs: [facility] External Provider IMG XR PROCEDURES Final Result * Tick-borne Disease, Acute Molecular Panel (03/24/2024 12:15 PM EDT) Babesia microti DNA, Real Time PCR NOT DETECTED NOT DETECTED [facility] Comment:This test was devsusano aida and its analytical performancecharacteristics have been determined by [employer]. It has not been cleared or approved by theA. This assay has been validated pursuant to the CLIAregulations and is used for clinical purposes.THIS TEST WAS PERFORMED AT:[facility] [place] [phone] MEMBRENO MD Ehrlichia chaffensis DNA Real Time PCR NOT DETECTED NOT DETECTED [facility] Comment:This test was develo ped and its analytical performancecharacteristics have been determined by [employer]. It has not been cleared or approved by theFDA. This assay has been validated pursuant to the CLIAregulations and is used for clinical purposes.THIS TEST WAS PERFORMED AT:[facility] [address] [phone] MEMBRENO MD Anaplasma phagocytophilum DNA, QL Real Time PCR NOT DETECTED NOT DETECTED [facility] Comment:This test was develo ped and its analytical performancecharacteristics have been determined by [employer]. It has not been cleared or approved by theFDA. This assay has been validated pursuant to the CLIAregulations and is used for clinical purposes. Borrelia Species DNA, Ql Real Time PCR NOT DETECTED NOT DETECTED [facility] Comment:This test was develo ped and its analytical performancecharacteristics have been determined by [employer]. It has not been cleared or approved by theFDA. This assay has been validated pursuant to the CLIAregulations and is used for clinical purposes.For additional information, please refer [email or web address].Kiddify/faq/[email or web address](This link is being provided for informational/educational purposes only.)THIS TEST WAS PERFORMED AT:[facility] [address] [phone] MEMBRENO MD Borrelia Miyamotoi DNA, Ql Real Time PCR NOT DETECTED NOT DETECTED [facility] Comment:This test detects bu t does not distinguish betweenB. miyamotoi and B. hermsii.This test was developed and its analytical performancecharacteristics have been determined by [employer]. It has not been cleared or approved by theFDA. This assay has been validated pursuant to the CLIAregulations and is used for clinical purposes.THIS TEST WAS PERFORMED AT:[facility] [address] [phone] MEMBRENO MD Comment SEE NOTE [facility] Comment:A negative result do es not exclude Borrelia infectionas the concentration of the organism in blood may be lowor non-existent in patients with Lyme disease, and maydepend on timing of specimen collection from onset ofsymptoms. Clinical correlation is recommended andadditional studies such as serologic testing may beindicated.THIS TEST WAS PERFORMED AT:[facility] [place] [phone] MEMBRENO MD 03/24/2024 12:1 5 PM EDT 03/24/2024 12:19 PM EDT Generic External Data Provider LAB BLOOD ORDERAB LES Final Result Performing Organization Address [facility]/ZIP Co de Phone Number [facility] [address] [place] [phone] * Slide Review (03/24/2024 12:15 PM EDT) Slide Review VERIFIED [facility] 03/24/2024 12:1 5 PM EDT 03/24/2024 12:19 PM EDT Generic External Data Provider LAB BLOOD ORDERAB LES Final Result Performing Organization Address [facility] de Phone Number [facility] [address] [place] [phone] * (ABNORMAL) CBC auto differential (03/24/2024 12:15 PM EDT) White Blood Count 8.3 4.8 - 10.8 X10*3/uL [facility] Red Blood Count 4.86 4.60 - 5.80 X10*6/uL [facility] Hemoglobin 14.0 14.0 - 18.0 g/dl [facility] Hematocrit 41.0(L) 42.0 - 52.0 % [facility] Mean Corpuscular Volume 84.4 80.0 - 98.0 fL [facility] Mean Corpuscular Hemoglobin 28.8 27.0 - 33.0 pg [facility] Mean Corpuscular HGB Conc 34.1 31.0 - 36.0 g/dl [facility] Red Cell Distribution Width 12.2 11.0 - 16.0 % [facility] Platelet Count 122(L) 160 - 400 X10*3/uL [facility] Comment:Confirmed by smear. Mean Platelet Volume 10.8 9.4 - 12.4 fL [facility] Neutrophils Percent Auto 62.4 45 - 73 % [facility] Imm Gran Pct Auto 0.7(H) 0.0 - 0.4 % [facility] Lymphocytes Percent Auto 27.4 20 - 40 % [facility] Monocytes Percent Auto 5.6 2 - 11 % [facility] Eosinophils Percent Auto 3.3 0 - 4 % [facility] Basophils Percent Auto 0.6 0 - 2 % [facility] NRBC Pct Auto 0.0 0.0 - 0.2 /100WBC [facility] Neutrophils Absolute Auto 5.2 2.0 - 8.3 x10*3/uL [facility] Imm Gran Abs Auto 0.06(H) 0.00 - 0.03 X10*3/uL [facility] Lymphocytes Absolute Auto 2.3 1.2 - 4.9 X10*3/uL [facility] Monocytes Absolute Auto 0.5 0.1 - 1.2 X10*3/uL [facility] Eosinophils Absolute Auto 0.3 0.0 - 0.4 X10*3/uL [facility] Basophils Absolute Auto 0.1 0.0 - 0.2 X10*3/uL [facility] NRBC Abs Auto 0.000 0.0 - 0.012 X10*3/uL [facility] 03/24/2024 12:1 5 PM EDT 03/24/2024 12:19 PM EDT us Generic External Data Provider LAB BLOOD ORDERAB LES Edited Result - Final [facility] [address] [place] [phone] [phone] * TSH with Reflex to Free T4 (03/24/2024 12:15 PM EDT) TSH reflex Free T4 1.53 0.32 - 4.0 uIU/mL [facility] 03/24/2024 12:1 5 PM EDT 03/24/2024 12:19 PM EDT us Generic External Data Provider LAB BLOOD ORDERAB LES Final Result Performing Organization Address [facility]/ZIP Co de Phone Number [facility] [address] [place] [phone] * Ferritin (03/24/2024 12:15 PM EDT) Pathologist [facility] [place] Ferritin 109 20 - 250 ng/mL [facility] 03/24/2024 12:1 5 PM EDT 03/24/2024 12:19 PM EDT us Generic External Data Provider LAB BLOOD ORDERAB LES Final Result Performing Organization Address [facility] Co de Phone Number [facility] [address] [place] [phone] * High Sensitivity Troponin I (03/24/2024 12:15 PM EDT) Pathologist [facility] [place] TROPONIN I HIGH SENSITIVITY <2.7 <3.5 - 35.0 ng/L [facility] Comment:The Cha high sens itivity Troponin-I results should beused in conjunction with other diagnostic information suchas ECG, clinical observations and information, and patientsymptoms to aid in the diagnosis of [place]. 03/24/2024 12:1 5 PM EDT 03/24/2024 12:19 PM EDT us Generic External Data Provider LAB BLOOD ORDERAB LES Final Result Performing Organization Address [facility]/ZIP Co de Phone Number [facility] [address] [place] [phone] * Magnesium (03/24/2024 12:15 PM EDT) Magnesium 1.9 1.6 - 2.6 mg/dL [facility] 03/24/2024 12:1 5 PM EDT 03/24/2024 12:19 PM EDT us Generic External Data Provider LAB BLOOD ORDERAB LES Final Result [facility] [address] [place] [phone] [phone] * (ABNORMAL) Comprehensive Metabolic Panel (03/24/2024 12:15 PM EDT) Sodium 140 135 - 145 mmol/L [facility] Potassium 3.6 3.3 - 5.1 mmol/L [facility] Chloride 106 96 - 108 mmol/L [facility] Carbon Dioxide 27 22 - 29 mmol/L [facility] Anion Gap 11(L) 12 - 20 [facility] Urea Nitrogen (BUN) 8(L) 9 - 16 mg/dL [facility] Creatinine, Serum 0.84 0.5 - 1.4 mg/dL [facility] Creatinine Clr Calc Pharmacy 145.2 [facility] Comment:eGFR (calculated fro m the MDRD study equation) and eCrCl(calculated from the Cockcroft-Gault equation) are based ondifferent parameters and may not yield comparable results.If eCrCl result is absurd, please check patient'sheight/weight. Estimated Glomerular Filt Rate >60 [facility] Comment:NOTE: For -Am erican individuals, multiply the result by 1.210.Chronic Kidney Disease: Estimated GFR < 60 mL/min/[id number] Kidney Disease: Estimated GFR < 15 mL/min/1.73m2 Glucose 113 60 - 115 mg/dL [facility] Calcium 9.3 8.4 - 10.2 mg/dL [facility] Bilirubin, Total 0.3 0.0 - 1.0 mg/dL [facility] Aspartate Amino Transferase 15 5 - 37 U/L [facility] Alanine Aminotransferase 13 0 - 40 U/L [facility] Total Protein 7.5 6.5 - 8.0 g/dL [facility] Albumin Level 4.3 3.5 - 5.0 g/dL [facility] Alkaline Phosphatase 79 39 - 117 U/L [facility] 03/24/2024 12:1 5 PM EDT 03/24/2024 12:19 PM EDT Generic External Data Provider LAB BLOOD ORDERAB LES Final Result Performing Organization Address [facility] Co de Phone Number [facility] [address] [place] [phone] * Prothrombin Time-INR (03/24/2024 12:15 PM EDT) Prothrombin Time 12.4 11.1 - 13.3 SEC [facility] INTERNATIONAL NORM RATIO 1.0 0.9 - 1.1 [facility] Comment:INTERNATIONAL NORMAL IZED RATIO (INR) [...] 5 PM EDT 03/24/2024 12:19 PM EDT [employer] External Data Provider LAB BLOOD ORDERAB LES Final Result Performing Organization Address [facility] de Phone Number [facility] [address] [place] [phone] * (ABNORMAL) Reticulocyte Count (03/16/2024 11:56 AM EDT) Reticulocytes Absolute 0.127(H) 0.026 - 0.095 X10*6/uL [facility] Immature Retic Fraction 15.3(H) 2.3 - 13.4 % [facility] Retic HGB Equivalent 33.6 30.0 - 35.0 pg [facility] Reticulocyte Percent 2.8(H) 0.5 - 1.8 % [facility] Blood Venous blood specimen / Unknown 03/16/2024 11:56 AM EDT 03/16/2024 2:40 PM EDT us Diann Ramirez MD LAB BLOOD ORDERABLES Final Result Performing Organization Address [facility]/ZIP Co de Phone Number [facility] [address] [place] [phone] * Ferritin (03/16/2024 11:56 AM EDT) Ferritin 118 20 - 250 ng/mL [facility] Blood Venous blood specimen / Unknown 03/16/2024 11:56 AM EDT 03/16/2024 2:42 PM EDT us Diann Ramirez MD LAB BLOOD ORDERABLES Final Result Performing Organization Address [facility] Co de Phone Number [facility] [address] [place] [phone] * Iron And Total Iron Binding Capacity (03/16/2024 11:56 AM EDT) Iron 55 45 - 160 mcg/dL [facility] Total Iron Binding Capacity 261 228 - 428 mcg/dL [facility] Percent Iron Saturation 21 15 - 50 % [facility] Unsaturated Iron Binding 206 ug/dL [facility] Blood Venous blood specimen / Unknown 03/16/2024 11:56 AM EDT 03/16/2024 2:42 PM EDT us Diann Ramirez MD LAB BLOOD ORDERABLES Final Result [facility] [address] [place] [phone] [phone] documented in this encounter Visit Diagnoses Diagnosis Microcytic anemia- Primary Unspecified iron deficiency anemia Vitamin D deficiency Primary hypertension Unspecified essential hypertension Numbness of right foot Numbness of left foot Bicytopenia documented in this encounter Additional Health Concerns Assessment Noted Time PHQ-9 Depression Total Score: 1 10/31/19 23 3:59 PM EST documented as of this encounter Care Teams Recessing Machine Operator Relationship Specialty Start Date End Date Diann Ramirez MD [address] [place] [phone] PCP - General Internal Medicine 07/16/12 documented as of this encounter
--- OUTSIDE RECORDS SUMMARY | 2024-11-15 18:01 | XMS_ITS | Encounter Summary ---
Author Organization [employer] Address [address] [facility] 7 [place] [address] Care Team Providers Care Spray Stainer Name Role Phone Diann Ramirez MD Primary Care Provider [phone] Reason for Visit * Reason Onset Date Comments Referral 11/21/2022 Encounter Details Date Type Department Care Team (Late st Contact Info) Description 11/21/2022 Telephone [facility] MEDICINE [address] [place] [address] Diann Ramirez MD [address] [place] [address] Referral Social History Tobacco Use Types Packs/Day [...] by Dr Linton Please contact pt at [phone] Please see above message. Thanks * Telephone Encounter - Mario Saldivar - 11/21/2022 2:42 PM EST Tc from pt requesting a new referral for neurologist states don't want to be seen by Dr Linton Please contact pt at [phone] documented in this encounter Plan of Treatment Upcoming Encounters Date Type Department Care Team ([facility] st Contact Info) Description 11/16/2024 3:45 PM EST Office Visit [facility] MED & PEDS [address] [place] [address] Diann Ramirez MD [address] [place] [address] 12/20/2024 2:00 PM EST Telemedicine [facility] MED [facility] PEDS [address] [place] [address] Naomi Reyes RN [address] [place] [address] 02/15/2025 1:30 PM EDT Office Visit [facility] MED & PEDS [address] [place] [phone] Diann Ramirez MD [address] [place] [address] documented as of this encounter Visit Diagnoses Diagnosis Chronic cluster headache, not intractable- Primary documented in this encounter Additional Health Concerns Assessment Noted Time PHQ-9 Depression Total Score: 1 10/31/19 23 3:59 PM EST documented as of this encounter Care Teams Spray Stainer Relationship Specialty Start Date End Date Diann Ramirez MD [address] [place] [address] PCP - General Internal Medicine 07/16/12 documented as of this encounter
--- OUTSIDE RECORDS SUMMARY | 2024-11-15 18:01 | XMS_ITS | Encounter Summary ---
Author Organization [employer] Address [address] [facility] 7 [place] [address] Care Team Providers Care Real Estate Utilization Officer Name Role Phone Diann Ramirez MD Primary Care Provider [phone] Reason for Visit * Reason Onset Date Comments Appointment Request 01/13/2024 Encounter Details Date Type Department Care Team (Late st Contact Info) Description 01/13/2024 Telephone [facility] MEDICINE [address] [place] [address] Diann Ramirez MD [address] [place] [address] Appointment Request Social History Tobacco Use Types [...] Description 11/16/2024 3:45 PM EST Office Visit [facility] MED & PEDS [address] [place] [address] Diann Ramirez MD [address] [place] [address] 12/20/2024 2:00 PM EST Telemedicine [facility] MED & PEDS [address] [place] [address] Naomi Reyes, TABATHA [address] [place] [address] 02/15/2025 1:30 PM EDT Office Visit [facility] MED & PEDS [address] [place] [address] Diann Ramirez MD [address] [place] [address] documented as of this encounter Visit Diagnoses Not on filedocumented in this encounter Additional Health Concerns Assessment Noted Time PHQ-9 Depression Total Score: 1 10/31/19 23 3:59 PM EST documented as of this encounter Care Teams Real Estate Utilization Officer Relationship Specialty Start Date End Date Diann Ramirez MD [address] [place] [address] PCP - General Internal Medicine 07/16/12 documented as of this encounter
--- OUTSIDE RECORDS SUMMARY | 2024-11-15 18:01 | XMS_ITS | Encounter Summary ---
Author Organization [employer] Address [address] [facility] 7 [place] [address] Care Team Providers Care Cleaning Specialist Name Role Phone Diann Ramirez MD Primary Care Provider [phone] Reason for Visit * Reason Onset Date Comments Med Refill 11/25/2022 Encounter Details Date Type Department Care Team (Late st Contact Info) Description 11/25/2022 Telephone [facility] MEDICINE [address] [place] [address] Diann Ramirez MD [address] [place] [address] Med Refill Social History Tobacco Use Types [...] PM EST Office Visit [facility] MED & PEDS [address] [place] [address] Diann Ramirez MD [address] [place] [address] 12/20/2024 2:00 PM EST Telemedicine [facility] MED & PEDS [address] [place] [address] Naomi Reyes RN [address] [place] [address] 02/15/2025 1:30 PM EDT Office Visit [facility] MED & PEDS [address] [place] [address] Diann Ramirez MD [address] [place] [address] documented as of this encounter Visit Diagnoses Not on filedocumented in this encounter Additional Health Concerns Assessment Noted Time PHQ-9 Depression Total Score: 1 10/31/19 23 3:59 PM EST documented as of this encounter Care Teams Cleaning Specialist Relationship Specialty Start Date End Date Diann Ramirez MD [address] [place] [address] PCP - General Internal Medicine 07/16/12 documented as of this encounter
--- OUTSIDE RECORDS SUMMARY | 2024-11-15 18:01 | XMS_ITS | Clinical Summary ---
Author Organization [employer] [facility] ity Address [address] [place] [phone] Care Team Providers Care Methods Examiner Name Role Phone Unavailable Primary Care Provider [...]
== END 2024-11-15 12:42 | disposition home or self-care (01) ==
LOC: HO.HOSX 12:41
PROVIDERS: PCP Internal Medicine; Visit Provider Physician Assistant
DX: M25.572 Pain in left ankle and joints of left foot (principal); S82.892A Other fracture of left lower leg, initial encounter for closed fracture
CPT/HCPCS: 27786; 73610; 99212

== ENCOUNTER → 2024-11-15 13:17 | Outpatient (BNV) | payer MEDICAID, SELFPAY | PROVIDERS: PCP Internal Medicine; Visit Provider Radiology Diagnostic Radiology | DX: M25.572 Pain in left ankle and joints of left foot (principal) | CPT/HCPCS: 73610 ==

== ENCOUNTER 2024-11-17 10:33 | Outpatient (REF) | payer MEDICAID, SELFPAY ==
--- NOTE | ~2024-11-17 | XR_ITS ---
EXAMINATION: XR ANKLE 3 OR MORE VIEWS LEFT HISTORY: M25.572 - Pain in left ankle and joints of left foot COMPARISON: Comparison is made with the prior examination dated 11/15/2024. FINDINGS: Three views of the left ankle are submitted. Osseous mineralization is normal. Again seen is a mildly displaced oblique fracture of the distal fibula. The appearance is unchanged from the prior study. The joint spaces are preserved. The soft tissues are unremarkable. XR/XR ankle LT min 3V IMPRESSION: Mildly displaced oblique fracture of the distal fibula without change. Electronically signed by: Jovany Arambula MD 11/18/2024 09:04 AM RAMONA
--- OUTSIDE RECORDS SUMMARY | 2024-11-17 12:39 | XMS_ITS | Encounter Summary ---
Author Organization [employer] Address [address] [facility] 7 [place] [address] Care Team Providers Care Bronc Breaker Name Role Phone Diann Ramirez MD Primary Care Provider [phone] Reason for Visit * Reason Onset Date Comments Appointment Request 06/11/2024 Encounter Details Date Type Department Care Team ([facility] st Contact Info) Description 06/11/2024 Telephone [facility] MEDICINE [address] [place] [address] Diann Ramirez MD [address] [place] [address] Appointment Request Social History Tobacco Use Types [...] Tc from pt calling in regards to [facility]IN[facility] [employer]PER visit from 06/18 that was canceled and is requesting to reschedule. Please contact pt at [phone]. documented in this encounter Plan of Treatment Upcoming Encounters Date Type Department Care Team (Late st Contact Info) Description 12/20/2024 2:00 PM EST Telemedicine [facility] MED & PEDS [address] [place] [address] Naomi Reyes RN [address] [place] [address] 02/15/2025 1:30 PM EDT Office Visit [facility] MED & PEDS [address] [place] [address] Diann Ramirez MD [address] [place] [address] documented as of this encounter Visit Diagnoses Not on filedocumented in this encounter Additional Health Concerns Assessment Noted Time PHQ-9 Depression Total Score: 4 03/20/20 24 9:12 AM EDT documented as of this encounter Care Teams Bronc Breaker Relationship Specialty Start Date End Date Diann Ramirez MD [address] [place] [address] PCP - General Internal Medicine 9/27/12 documented as of this encounter
--- OUTSIDE RECORDS SUMMARY | 2024-11-17 12:39 | XMS_ITS | Encounter Summary ---
Author Organization [employer] Address 75 [facility] 7 [place] [address] Care Team Providers Care Analyst Name Role Phone Diann Ramirez MD Primary Care Provider [phone] Reason for Visit * Reason Onset Date Comments Med Refill 07/28/2024 Encounter Details Date Type Department Care Team (Late st Contact Info) Description 07/28/[address] [facility] MEDICINE [address] [place] [address] Diann Ramirez MD [address] [place], [place] [phone] Med Refill Social History Tobacco Use Types [...] 1 MG tablet To be sent to: [id number] - [place], [place] - [address] [facility] documented in this encounter Plan of Treatment Upcoming Encounters Date Type Department Care Team (Late st Contact Info) Description 12/20/2024 2:00 PM EST Telemedicine [facility] MED & PEDS [address] [place] [address] Naomi Reyes RN [address] [place] [address] 02/15/2025 1:30 PM EDT Office Visit [facility]ED[facility] [address] [place] [address] Diann Ramirez MD [address] [place] [address] documented as of this encounter Visit Diagnoses Not on filedocumented in this encounter Additional Health Concerns Assessment Noted Time PHQ-9 Depression Total Score: 4 03/20/20 24 9:12 AM EDT documented as of this encounter Care Teams Analyst Relationship Specialty Start Date End Date Diann Ramirez MD [address] [place] [address] PCP - General Internal Medicine 07/16/12 documented as of this encounter
--- OUTSIDE RECORDS SUMMARY | 2024-11-17 12:39 | XMS_ITS | Encounter Summary ---
Author Organization [employer] Address 75 [facility] 7 [place] [address] Care Team Providers Care Elevator Constructor Hydraulic Name Role Phone Diann Ramirez MD Primary Care Provider [phone] Reason for Visit * Reason Onset Date Comments Med Refill 11/25/2022 Encounter Details Date Type Department Care Team (Late st Contact Info) Description 11/25/2022 Telephone [facility] MEDICINE [address] [place] [address] Diann Ramirez MD [address] [place] [address] Med Refill Social History Tobacco Use Types [...] Description 12/20/2024 2:00 PM EST Telemedicine [facility] MED & PEDS [address] [place] [address] Naomi Reyes RN [address] [place] [address] 02/15/2025 1:30 PM EDT Office Visit [facility] MED [facility] PEDS [address] [place] [address] Diann Ramirez MD [address] [place] [address] documented as of this encounter Visit Diagnoses Not on filedocumented in this encounter Additional Health Concerns Assessment Noted Time PHQ-9 Depression Total Score: 1 10/31/19 23 3:59 PM EST documented as of this encounter Care Teams Elevator Constructor Hydraulic Relationship Specialty Start Date End Date Diann Ramirez MD [address] [place] [address] PCP - General Internal Medicine 07/16/12 documented as of this encounter
--- OUTSIDE RECORDS SUMMARY | 2024-11-17 12:39 | XMS_ITS | Encounter Summary ---
Author Organization [employer] Address 75 [facility] 7 [place] [address] Care Team Providers Care Bicycle Subassembler Name Role Phone Diann Ramirez MD Primary Care Provider [phone] Reason for Visit * Reason Onset Date Comments Appointment Request 06/17/2024 Encounter Details Date Type Department Care Team ([facility] st Contact Info) Description 06/17/2024 Telephone [facility] MEDICINE [address] [place] [address] Diann Ramirez MD [address] [place] [address] Appointment Request Social History Tobacco Use Types [...] would like a sooner appt than what promotion writer offered documented in this encounter Plan of Treatment Upcoming Encounters Date Type Department Care Team (Late st Contact Info) Description 12/20/2024 2:00 PM EST Telemedicine [facility] MED [facility] PEDS [address] [place] [address] Naomi Reyes RN [address] [place] [address] 02/15/2025 1:30 PM EDT Office Visit [facility] [address] [place] [address] Diann Ramirez MD [address] [place] [address] documented as of this encounter Visit Diagnoses Not on filedocumented in this encounter Additional Health Concerns Assessment Noted Time PHQ-9 Depression Total Score: 4 03/20/20 24 9:12 AM EDT documented as of this encounter Care Teams Bicycle Subassembler Relationship Specialty Start Date End Date Diann Ramirez MD [address] [place] [address] PCP - General Internal Medicine 07/16/12 documented as of this encounter
--- OUTSIDE RECORDS SUMMARY | 2024-11-17 12:39 | XMS_ITS | Encounter Summary ---
Author Organization [employer] Address 75 [facility] 7t [place] [address] Care Team Providers Care Customer Success Associate Name Role Phone Diann Ramirez MD Primary Care Provider [phone] Encounter Details Date Type Department Care Team (Late st Contact Info) Description 11/11/2024 Orders Only [facility] External Provider, [facility] Social History Tobacco Use Types Packs/Day [...] Info) Description 12/20/2024 2:00 PM EST Telemedicine [facility] MED & PEDS [address] [place] [address] Naomi Reyes RN [address] [place] [address] 02/15/2025 1:30 PM EDT Office Visit [facility] MED & PEDS [address] [place] [address] Diann Ramirez MD [address] [place] [address] documented as of this encounter Procedures Procedure [...] Surgeons ? [address] ?[place] [address] ?XRay Report ? Signed ? Patient: Stopa,Luc J ?MR#: [id number] ?? 78 ? : 1980 ?Acct:[id number] ? Age/Sex: 44 / M ?ADM Date: 01/27/25 ? Loc: HO.HOSX ? Attending Dr: Shreya Whelan PA-C ? Ordering Physician: Shreya Whelan PA-C ?? Date of Service: 11/15/24 ?? Procedure(s): XR ankle LT min 3V ?? Accession Number(s): [id number] ? cc: Diann Ramirez MD; Shreya Whelan [...] DD/ 1317 ? TD/TT: 11/15/24 1320 ? Burn Center Nurse: ? Procedure Note Kateryna, Image - 11/15/2024 [facility] [address] [place] [address] [address] [place] [address] XRay Report Signed Patient: Luc Erickson JMR#: [id number] 78 : 1980Acct:[id number] Age/Sex: 44 / MADM Date: 11/15/24 Loc: IAN Attending Dr: Shreya Whelan PA-C Ordering Physician: Srheya Whelan PA-C Date of Service: 11/15/24 Procedure(s): XR ankle LT min 3V Accession Number(s): [id number] cc: Diann Ramirez MD; Meuse,Ta-Anabel PA-C EXAMINATION: XR ANKLE 3 OR MORE [...] 11/15/24 1527 DD/ 1317 TD/TT: 11/15/24 1320 Burn Center Nurse: [facility] External Provider IMG XR PROCEDURES Final Result * XR Tibia Fibula 2 Views Left (11/11/2024 10:45 AM EST) Anatomical Region Laterality Modality Lower Extremities, Lower Leg Left Rad iographic Imaging 11/11/2024 10:4 5 AM EST Narrative 11/11/2024 11:32 AM EST ? [facility] ?[address] ?[place] [address] ?XRay Report ? Signed ? Patient: Stopa,Luc J ?MR#: [id number] ?? 78 ? : 1980 ?Acct:[id number] ? Age/Sex: 44 / M ?ADM Date: 11/11/24 ? Loc: HO.ED ? Attending Dr: ? Ordering Physician: Generic ED Physician ?? Date of Service: 11/11/24 ?? Procedure(s): XR tibia fibula LT 2V ?? Accession Number(s): [id number] ? cc: Diann Ramirez MD; Generic ED [...] DD/ 1045 ? TD/TT: 11/11/24 1100 ? Burn Center Nurse: MSM ? Procedure Note Donotuseinterpreter, Image - 11/11/2024 [place] [address] XRay Report Signed Patient: Luc Erickson JMR#: [id number] [birth year] : 1980Acct:[id number] Age/Sex: 44 / MADM Date: 11/11/24 Loc: HO.ED Attending Dr: Ordering Physician: Generic ED Physician Date of Service: 11/11/24 Procedure(s): XR tibia fibula LT 2V Accession Number(s): [id number] cc: Diann Ramirez MD; Generic ED Physician [...] 11/11/24 1129 DD/ 1045 TD/TT: 11/11/24 1100 Burn Center Nurse: FEMI us [facility] External Provider IMG XR PROCEDURES Final Result * XR Ankle 3+ Views Left (11/11/2024 10:45 AM EST) Anatomical Region Laterality Modality Lower Extremities, Ankle Left Radiogr aphic Imaging 11/11/2024 10:4 5 AM EST Narrative 11/11/2024 11:32 AM EST ? [facility] ?[address] ?[place] [address] ?XRay Report ? Signed ? Patient: Stopa,Luc J ?MR#: [id number] ?? 78 ? : 1980 ?Acct:[id number] ? Age/Sex: 44 / M ?ADM Date: 11/11/24 ? Loc: HO.ED ? Attending Dr: ? Ordering Physician: Generic ED Physician ?? Date of Service: 11/11/24 ?? Procedure(s): XR ankle LT min 3V ?? Accession Number(s): [id number] ? cc: Diann Ramirez MD; Generic ED [...] EST RP ? Dictated By: ?Livan Swenson S ? Signed By: ?<Electronically signed by Livan S MD Leela in [place]> ?11/11/24 1129 ? DD/ 1045 ? TD/TT: 11/11/24 1100 ? Burn Center Nurse: MSM ? Procedure Note Kateryna, Colt - 11/11/2024 [facility] [address] [place] [address] XRay Report Signed Patient: Luc Erickson JMR#: [id number] [birth year] : 1980Acct:[id number] Age/Sex: 44 / MADM Date: 11/11/24 Loc: HO.ED Attending Dr: Ordering Physician: Generic ED Physician Date of Service: 11/11/24 Procedure(s): XR ankle LT min 3V Accession Number(s): [id number] cc: Diann Ramirez MD; Generic ED Physician [...] by: Livan Swenson MD 11/11/2024 11:29 AM [facility] Dictated By: Livan Swenson MD Signed By: <Electronically signed by Livan Swenson MD in [place]> 11/11/24 1129 DD/ 1045 TD/TT: 11/11/24 1100 Burn Center Nurse: FEMI [facility] External Provider IMG XR PROCEDURES Final Result documented in this encounter Visit Diagnoses Not on filedocumented in this encounter Additional Health Concerns Assessment Noted Time PHQ-9 Depression Total Score: 4 03/20/20 24 9:12 AM EDT documented as of this encounter Care Teams Customer Success Associate Relationship Specialty Start Date End Date Diann Ramirez MD [address] [place] [address] PCP - General Internal Medicine 07/16/12 documented as of this encounter
--- OUTSIDE RECORDS SUMMARY | 2024-11-17 12:39 | XMS_ITS | Encounter Summary ---
Author Organization [employer] Address 75 [facility] 7 [place] [address] Care Team Providers Care Fishing Rod Marker Name Role Phone Diann Ramirez MD Primary Care Provider [phone] Reason for Visit * Reason Onset Date Comments Med Refill 03/18/2023 Encounter Details Date Type Department Care Team (Late st Contact Info) Description 03/18/2023 Telephone [facility] MEDICINE [address] [place] [address] Diann Raimrez MD [address] [place], [place] [phone] Med Refill Social History Tobacco Use Types [...] 2:00 PM EST Telemedicine [facility] MED & PEDS [address] [place] [address] Naomi Reyes RN [address] [place] [address] 02/15/2025 1:30 PM EDT Office Visit [facility] MED & PEDS [address] [place] [address] Diann Ramirez MD [address] [place] [address] documented as of this encounter Visit Diagnoses Not on filedocumented in this encounter Additional Health Concerns Assessment Noted Time PHQ-9 Depression Total Score: 1 10/31/19 23 3:59 PM EST documented as of this encounter Care Teams Fishing Rod Marker Relationship Specialty Start Date End Date Diann Ramirez MD [address] [place], [place] [address] [address] PCP - General Internal Medicine 07/16/12 documented as of this encounter
--- OUTSIDE RECORDS SUMMARY | 2024-11-17 12:39 | XMS_ITS | Encounter Summary ---
Author Organization [employer] Address 75 [facility] 7 [place] [address] Care Team Providers Care Hoisting Engineer Name Role Phone Diann Ramirez MD Primary Care Provider [phone] Reason for Visit * Reason Comments Hypertension Encounter Details Date Type Department Care Team ([facility] st Contact Info) Description 11/15/2024 9:15 AM EST Office Visit [facility] MED & PEDS [address] [place], [place] [phone] Diann Ramirez MD [address] [place] [address] Primary hypertension (Primary Dx); Other closed fracture of distal end of left fibula, initial encounter; Dietary counseling; Exercise counseling; Class 2 severe obesity due to excess calories with serious comorbidity and body mass index (BMI) of 35.0 to 35.9 in adult ([facility]) Social History Tobacco Use Types [...] index (BMI) of35.0 to 35.9 in adult ([facility]) Discussed calorie deficit, recommended reduction of 20-30% of maintenance calories; steel analyst referral offered. Recommended to decrease soda and sugary beverage consumption. Recommended at least 20 g per meal of protein to assist with satiety. Recommended at least 150 min/week of moderate intensity exercise. documented in this encounter Plan of Treatment Upcoming Encounters Date Type Department Care Team (Late st Contact Info) Description 12/20/2024 2:00 PM EST Telemedicine [facility] MED & PEDS [address] [place] [address] Naomi Reyes, TABATHA [address] [place] [address] 02/15/2025 1:30 PM EDT Office Visit [facility] MED [facility] PED[facility] [address] [place] [address] Diann Ramirez MD [address] [place] [address] documented as of this encounter Visit Diagnoses Diagnosis Primary hypertension- Primary Unspecified essential hypertension Other closed fracture of distal end of left fibula, initial encounter Dietary counseling Dietary surveillance and counseling Exercise counseling Class 2 severe obesity due to excess calories with serious comorbidity and body mass index (BMI) of 35.0 to 35.9 in adult ([facility]) documented in this encounter Additional Health Concerns Assessment Noted Time PHQ-9 Depression Total Score: 4 03/20/20 24 9:12 AM EDT documented as of this encounter Care Teams Hoisting Engineer Relationship Specialty Start Date End Date Diann Ramirez MD [address] [place] [address] PCP - General Internal Medicine 9/27/12 documented as of this encounter
--- OUTSIDE RECORDS SUMMARY | 2024-11-17 12:39 | XMS_ITS | Encounter Summary ---
Author Organization [employer] Address [address] [place] [address] [address] [place] [address] Care Team Providers Care Service Advisor Name Role Phone Diann Ramirez MD Primary Care Provider [phone] Reason for Referral * Consultation (Routine) - Closed Specialty Diagnoses / Procedures Referred By Dania blackman Referred To Contact Hematology and Oncology Diagnoses Microcytic anemia Bicytopenia Diann Ramirez MD [address] [place] [address] Phone: tel: fax: Cornell Culver MD [address] [place] [phone] Phone: tel: fax: Referral ID Status Reason Start Date Expiration Date V isits Requested Visits Authorized [id number] Closed Specialty Services Required 03/16/2024 03/16/2025 1 1 * Imaging (Routine) - Closed Specialty Diagnoses / Procedures Referred By Contcary t Referred To Contact Diagnoses Numbness of right foot Numbness of left foot Procedures EMG Diann Ramirez MD [address] [place] [address] Phone: tel: fax: [address] Phone: tel: fax: Referral ID Status Reason Start Date Expiration Date Visits Re quested Visits Authorized [id number] Closed 03/16/2024 03/16/2025 1 1 Encounter Details Date Type Department Care Team (Late Contact Info) Description 03/12/2024 Orders Only [facility] [address] [place] [address] Diann Ramirez MD [address] [place] [address] Microcytic anemia (Primary Dx); Vitamin D deficiency; [...] [facility] [address] [place] [address] Naomi Reyes, RN [address] [place] [address] 02/15/2025 1:30 PM EDT Office Visit [facility] [address] [place] [address] Diann Ramirez MD [address] [place] [address] Scheduled Orders Name Type Priority Associated Diagnoses [...] EDT Narrative 03/24/2024 3:35 PM EDT ? [facility] ?[address] ?[place] [address] ? CT Scan Report ? Signed ? Patient: Stopa,Luc J ?MR#: [id number] ?? 78 ? : 1980 ?Acct:[id number] ? Age/Sex: 43 / M ?ADM Date: 03/24/24 ? Loc: HO.ED ? Attending Dr: ? Ordering Physician: Phani Gamino DO ?? Date of Service: 03/24/24 ?? Procedure(s): CT head/brain wo IV con ?? Accession Number(s): [id number] ? cc: Diann Ramirez MD; Phani Gamino [...] 1531 ? DD/ 1423 ? TD/TT: ? Assembler Unit: CARMEN ? Procedure Note Donotuseinterpreter, Image - 03/24/[address] [address] [address] Scan Report Signed Patient: Luc Erickson JMR#: [id number] [birth year] : 1980Acct:[id number] Age/Sex: 43 / MADM Date: 03/24/24 Loc: HO.ED Attending Dr: Ordering Physician: Phani Gamino DO Date of Service: 03/24/24 Procedure(s): CT head/brain wo IV con Accession Number(s): [id number] cc: Diann Ramirez MD; Phani Gamino DO [...] in OV> 03/24/24 1531 DD/ 1423 TD/TT: Assembler Unit: CARMEN [facility] External Provider IMG CT PROCEDURES Final Result * XR Chest 2 Views (03/24/2024 2:00 PM EDT) Anatomical Region Laterality Modality Chest Radiographic Lacey ging 03/24/2024 2:00 PM EDT Narrative 03/24/2024 3:11 PM EDT ? [facility] ?[address] ?[place] [address] ?XRay Report ? Signed ? Patient: Hiral Ericksonhan J ?MR#: [id number] ?? 78 ? : 1980 ?Acct:[id number] ? Age/Sex: 43 / M ?ADM Date: 03/24/24 ? Loc: HO.ED ? Attending Dr: ? Ordering Physician: Phani Gamino DO ?? Date of Service: 03/24/24 ?? Procedure(s): XR chest 2V ?? Accession Number(s): [id number] ? cc: Diann Ramirez MD; Phani Gamino [...] No acute cardiopulmonary findings. ? Dictated By: ?Marisabel Herr ? Signed By: ?<Electronically signed by Marisabel ??Dager in OV> ? 03/24/24 1507 ? DD/ 1400 ? TD/TT: ? Assembler Unit: ? Procedure Note Colt Avendaño - 03/24/2024 [facility] [address] [facility] [place] [address] XRay Report Signed Patient: Luc Erickson JMR#: [id number] [birth year] : 1980Acct:[id number] Age/Sex: 43 / MADM Date: 03/24/24 Loc: HO.ED Attending Dr: Ordering Physician: Phani Gamino DO Date of Service: 03/24/24 Procedure(s): XR chest 2V Accession Number(s): [id number] cc: Diann Ramirez MD; Phani Gamino DO [...] in OV> 03/24/24 1507 DD/ 1400 TD/TT: Assembler Unit: [facility] External Provider IMG XR PROCEDURES Final Result * Tick-borne Disease, Acute Molecular Panel (03/24/2024 12:15 PM EDT) Babesia microti DNA, Real Time PCR NOT DETECTED NOT DETECTED [facility] Comment:This test was develo ped and its analytical performancecharacteristics have been determined by [employer]. It has not been cleared or approved by theFDA. This assay has been validated pursuant to the CLIAregulations and is used for clinical purposes.THIS TEST WAS PERFORMED AT:[employer] [id number] MEMBRENO MD Ehrlichia chaffensis DNA Real Time PCR NOT DETECTED NOT DETECTED [facility] Comment:This test was develo ped and its analytical performancecharacteristics have been determined by [employer]. It has not been cleared or approved by theFDA. This assay has been validated pursuant to the CLIAregulations and is used for clinical purposes.THIS TEST WAS PERFORMED AT:[employer] [address] [phone] MEMBRENO MD Anaplasma phagocytophilum DNA, QL Real Time PCR NOT DETECTED NOT DETECTED [facility] Comment:This test was develo ped and its analytical performancecharacteristics have been determined by [employer]. It has not been cleared or approved by theFDA. This assay has been validated pursuant to the CLIAregulations and is used for clinical purposes. Borrelia Species DNA, Ql Real Time PCR NOT DETECTED NOT DETECTED [facility] Comment:This test was develo ped and its analytical performancecharacteristics have been determined by [employer]. It has not been cleared or approved by theFDA. This assay has been validated pursuant to the CLIAregulations and is used for clinical purposes.For additional information, please refer [email or web address](This link is being provided for informational/educational purposes only.)THIS TEST WAS PERFORMED AT:[employer] [address] [phone] MEMBRENO MD Borrelia Miyamotoi DNA, Ql Real Time PCR NOT DETECTED NOT DETECTED [facility] Comment:This test detects bu t does not distinguish betweenB. miyamotoi and B. hermsii.This test was developed and its analytical performancecharacteristics have been determined by [employer]. It has not been cleared or approved by theFDA. This assay has been validated pursuant to the CLIAregulations and is used for clinical purposes.THIS TEST WAS PERFORMED AT:[employer] [address] [phone] MEMBRENO MD Comment SEE NOTE [facility] Comment:A negative result do es not exclude Borrelia infectionas the concentration of the organism in blood may be lowor non-existent in patients with Lyme disease, and maydepend on timing of specimen collection from onset ofsymptoms. Clinical correlation is recommended andadditional studies such as serologic testing may beindicated.THIS TEST WAS PERFORMED AT:[employer] [address] [phone] MEMBRENO MD 03/24/2024 12:1 5 PM EDT 03/24/2024 12:19 PM EDT Generic External Data Provider LAB BLOOD ORDERAB LES Final Result Performing Organization Address [facility] Co de Phone Number [facility] [address] [place] [phone] * Slide Review (03/24/2024 12:15 PM EDT) Slide Review VERIFIED [facility] 03/24/2024 12:1 5 PM EDT 03/24/2024 12:19 PM EDT us Generic External Data Provider LAB BLOOD ORDERAB LES Final Result Performing Organization Address [facility] Phone Number [facility] [address] [place] [phone] * (ABNORMAL) CBC auto differential (03/24/2024 12:15 PM EDT) White Blood Count 8.3 4.8 - 10.8 X10*3/uL [facility] Red Blood Count 4.86 4.60 - 5.80 X10*6/uL [facility] Hemoglobin 14.0 14.0 - 18.0 g/dl [facility] Hematocrit 41.0(L) 42.0 - 52.0 % [facility] Mean Corpuscular Volume 84.4 80.0 - 98.0 fL [facility] Mean Corpuscular Hemoglobin 28.8 27.0 - 33.0 pg [facility] Mean Corpuscular HGB Conc 34.1 31.0 - 36.0 g/dl [facility] Red Cell Distribution Width 12.2 11.0 - 16.0 % [facility] Platelet Count 122(L) 160 - 400 X10*3/uL [facility] Comment:Confirmed by smear. Mean Platelet Volume 10.8 9.4 - 12.4 fL [facility] Neutrophils Percent Auto 62.4 45 - 73 % [facility] Imm Gran Pct Auto 0.7(H) 0.0 - 0.4 % [facility] Lymphocytes Percent Auto 27.4 20 - 40 % [facility] Monocytes Percent Auto 5.6 2 - 11 % [facility] Eosinophils Percent Auto 3.3 0 - 4 % [facility] Basophils Percent Auto 0.6 0 - 2 % [facility] NRBC Pct Auto 0.0 0.0 - 0.2 /100WBC [facility] Neutrophils Absolute Auto 5.2 2.0 - 8.3 x10*3/uL [facility] Imm Gran Abs Auto 0.06(H) 0.00 - 0.03 X10*3/uL [facility] Lymphocytes Absolute Auto 2.3 1.2 - 4.9 X10*3/uL [facility] Monocytes Absolute Auto 0.5 0.1 - 1.2 X10*3/uL [facility] Eosinophils Absolute Auto 0.3 0.0 - 0.4 X10*3/uL [facility] Basophils Absolute Auto 0.1 0.0 - 0.2 X10*3/uL [facility] NRBC Abs Auto 0.000 0.0 - 0.012 X10*3/uL [facility] 03/24/2024 12:1 5 PM EDT 03/24/2024 12:19 PM EDT us Generic External Data Provider LAB BLOOD ORDERAB LES Edited Result - Final [facility] [address] [place] [phone] * TSH with Reflex to Free T4 (03/24/2024 12:15 PM EDT) TSH reflex Free T4 1.53 0.32 - 4.0 uIU/mL [facility] 03/24/2024 12:1 5 PM EDT 03/24/2024 12:19 PM EDT Generic External Data Provider LAB BLOOD ORDERAB LES Final Result Performing Organization Address [facility]/ZIP Co de Phone Number [facility] [address] [place] [phone] * Ferritin (03/24/2024 12:15 PM EDT) Ferritin 109 20 - 250 ng/mL [facility] 03/24/2024 12:1 5 PM EDT 03/24/2024 12:19 PM EDT Generic External Data Provider LAB BLOOD ORDERAB LES Final Result Performing Organization Address [facility] Co de Phone Number [facility] [address] [place] [phone] * High Sensitivity Troponin I (03/24/2024 12:15 PM EDT) TROPONIN I HIGH SENSITIVITY <2.7 <3.5 - 35.0 ng/L [facility] Comment:The Cha high sens itivity Troponin-I results should beused in conjunction with other diagnostic information suchas ECG, clinical observations and information, and patientsymptoms to aid in the diagnosis of NC. 03/24/2024 12:1 5 PM EDT 03/24/2024 12:19 PM EDT Generic External Data Provider LAB BLOOD ORDERAB LES Final Result Performing Organization Address [facility] Co de Phone Number [facility] [address] [place] [phone] * Magnesium (03/24/2024 12:15 PM EDT) Magnesium 1.9 1.6 - 2.6 mg/dL [facility] 03/24/2024 12:1 5 PM EDT 03/24/2024 12:19 PM EDT us Generic External Data Provider LAB BLOOD ORDERAB LES Final Result [facility] [address] [place] [phone] * (ABNORMAL) Comprehensive Metabolic Panel (03/24/2024 12:15 PM EDT) Sodium 140 135 - 145 mmol/L [facility] Potassium 3.6 3.3 - 5.1 mmol/L [facility] Chloride 106 96 - 108 mmol/L [facility] Carbon Dioxide 27 22 - 29 mmol/L [facility] Anion Gap 11(L) 12 - 20 [facility] Urea Nitrogen (BUN) 8(L) 9 - 16 mg/dL [facility] Creatinine, Serum 0.84 0.5 - 1.4 mg/dL [facility] Creatinine Clr Calc Pharmacy 145.2 [facility] Comment:eGFR (calculated fro m the MDRD study equation) and eCrCl(calculated from the Cockcroft-Gault equation) are based ondifferent parameters and may not yield comparable results.If eCrCl result is absurd, please check patient'sheight/weight. Estimated Glomerular Filt Rate >60 [facility] Comment:NOTE: For -Am erican individuals, multiply the result by 1.210.Chronic Kidney Disease: Estimated GFR < 60 mL/min/1.32m9Nllwmp Kidney Disease: Estimated GFR < 15 mL/min/1.73m2 Glucose 113 60 - 115 mg/dL [facility] Calcium 9.3 8.4 - 10.2 mg/dL [facility] Bilirubin, Total 0.3 0.0 - 1.0 mg/dL [facility] Aspartate Amino Transferase 15 5 - 37 U/L [facility] Alanine Aminotransferase 13 0 - 40 U/L [facility] Total Protein 7.5 6.5 - 8.0 g/dL [facility] Albumin Level 4.3 3.5 - 5.0 g/dL [facility] Alkaline Phosphatase 79 39 - 117 U/L [facility] 03/24/2024 12:1 5 PM EDT 03/24/2024 12:19 PM EDT Generic External Data Provider LAB BLOOD ORDERAB LES Final Result Performing Organization Address [facility] Co de Phone Number [facility] [address] [place] [phone] * Prothrombin Time-INR (03/24/2024 12:15 PM EDT) Prothrombin Time 12.4 11.1 - 13.3 SEC [facility] INTERNATIONAL NORM RATIO 1.0 0.9 - 1.1 [facility] Comment:INTERNATIONAL NORMAL IZED RATIO (INR) [...] ORDERAB LES Final Result Performing Organization Address [facility] de Phone Number [facility] [address] [place] [address] [phone] * (ABNORMAL) Reticulocyte Count (03/16/2024 11:56 AM EDT) Reticulocytes Absolute 0.127(H) 0.026 - 0.095 X10*6/uL [facility] Immature Retic Fraction 15.3(H) 2.3 - 13.4 % [facility] Retic HGB Equivalent 33.6 30.0 - 35.0 pg [facility] Reticulocyte Percent 2.8(H) 0.5 - 1.8 % [facility] Blood Venous blood specimen / Unknown 03/16/2024 11:56 AM EDT 03/16/2024 2:40 PM EDT us Diann Ramirez MD LAB BLOOD ORDERABLES Final Result Performing Organization Address [facility] Co de Phone Number [facility] [address] [place] [phone] * Ferritin (03/16/2024 11:56 AM EDT) Ferritin 118 20 - 250 ng/mL [facility] Blood Venous blood specimen / Unknown 03/16/2024 11:56 AM EDT 03/16/2024 2:42 PM EDT us Diann Ramirez MD LAB BLOOD ORDERABLES Final Result Performing Organization Address [facility] Co de Phone Number [facility] [address] [place] [phone] * Iron And Total Iron Binding Capacity (03/16/2024 11:56 AM EDT) Iron 55 45 - 160 mcg/dL [facility] Total Iron Binding Capacity 261 228 - 428 mcg/dL [facility] Percent Iron Saturation 21 15 - 50 % [facility] Unsaturated Iron Binding 206 ug/dL [facility] Blood Venous blood specimen / Unknown 03/16/2024 11:56 AM EDT 03/16/2024 2:42 PM EDT us Diann Ramirez MD LAB BLOOD ORDERABLES Final Result Performing Organization Address [facility] Co de Phone Number [facility] [address] [place] [phone] documented in this encounter Visit Diagnoses Diagnosis Microcytic anemia- Primary Unspecified iron deficiency anemia Vitamin D deficiency Primary hypertension Unspecified essential hypertension Numbness of right foot Numbness of left foot Bicytopenia documented in this encounter Additional Health Concerns Assessment Noted Time PHQ-9 Depression Total Score: 1 10/31/19 23 3:59 PM EST documented as of this encounter Care Teams Service Advisor Relationship Specialty Start Date End Date Diann Ramirez MD [address] [place] [address] PCP - General Internal Medicine 07/16/12 documented as of this encounter
--- OUTSIDE RECORDS SUMMARY | 2024-11-17 12:39 | XMS_ITS | Encounter Summary ---
Author Organization [email or web address] Address [address] 7 [place] [address] Care Team Providers Care Library Sales Consultant Name Role Phone Diann Ramirez MD Primary Care Provider [phone] Reason for Visit * Reason Onset Date Comments Med Refill 09/02/2024 Encounter Details Date Type Department Care Team (Late st Contact Info) Description 09/02/2024 Telephone [facility] [address] [place] [address] Diann Ramirez MD [address] [place] [address] Med Refill Social History Tobacco Use Types [...] 1 MG tablet To be sent to: [id number] [place] [facility] [address] [facility] [place] [facility] [place] [facility] [facility] documented in this encounter Plan of Treatment Upcoming Encounters Date Type Department Care Team (Late st Contact Info) Description 12/20/2024 2:00 PM EST Telemedicine [facility] [address] [place] [address] Naomi Reyes RN [address] [place] [address] 02/15/2025 1:30 PM EDT Office Visit [facility] [address] [place] [address] Diann Ramirez MD [address] [place] [address] documented as of this encounter Visit Diagnoses Not on filedocumented in this encounter Additional Health Concerns Assessment Noted Time PHQ-9 Depression Total Score: 4 03/20/20 24 9:12 AM EDT documented as of this encounter Care Teams Library Sales Consultant Relationship Specialty Start Date End Date Diann Ramirez MD [address] [place] [address] PCP - General Internal Medicine 07/16/12 documented as of this encounter
--- OUTSIDE RECORDS SUMMARY | 2024-11-17 12:39 | XMS_ITS | Clinical Summary ---
Author Organization [employer] Address 75 [facility] 7t [place] [address] Care Team Providers Care Boat Hoist Operator Helper Name Role Phone Diann Ramirez MD Primary Care Provider +1- [phone] Allergies Active Allergy Reactions Criticality Noted Date [...] 23 Active ergocalciferol (Vitamin D2) 1.25 MG (16970 UT) capsuleIndicati ons:Vitamin D deficiency Take 1 [...] and protective factors. Referral placed sent to [facility] on 07/21 for OP services. [...] intervention , [facility], Patient to engage [...] and protective factors. Referral placed sent to [facility] on 07/21 for OP services. [...] intervention , [facility], Patient to engage [...] 11/15/2024 9:15 AM EST Office Visit [facility] [address] [place] [address] Diann Ramirez MD Primary hypertension (Primary Dx); Other closed fracture of distal end of left fibula, initial encounter; Dietary counseling; Exercise counseling; Class 2 severe obesity due to excess calories with serious comorbidity and body mass index (BMI) of 35.0 to 35.9 in adult ([facility]) 11/15/2024 Travel 11/11/2024 Orders Only [facility] External Provider, [facility] 10/27/2024 Refill [facility] [address] [place] [address] Diann Ramirez MD Anxiety 10/01/2024 Telephone [facility] [address] [place] [address] Diann Ramirez MD Results 10/01/[address] [facility] [address] [place] [address] Diann Ramirez MD Anxiety 10/01/2024 Orders Only [facility] [address] [place] [address] Diann Ramirez MD Hiatal hernia (Primary Dx) 09/22/2024 9:30 AM EST Clinical Support [facility] [address] [place] [address] Naomi Reyes RN Anxiety 09/22/2024 Telephone [facility] [address] [place] [address] Naomi Reyes RN 09/22/2024 Travel 09/02/2024 Refill [facility] [address] [place] [address] Naomi Reyes, RN Anxiety 09/02/[address] [facility] [address] [place] [address] Diann Ramirez MD Med Refill from Last [...] Upcoming Encounters Date Type Department Care Team ([facility] st Contact Info) Description 12/20/2024 2:00 PM EST Telemedicine [facility] [address] [place] [address] Naomi Reyes RN [address] [place] [address] 02/15/2025 1:30 PM EDT Office Visit [facility] [address] [place], [place] [id number] Diann Ramirez MD [address] [place] [address] Health Maintenance Due Date Last Done Comments [...] 5 Years) and At-Risk Patients (6 to 49) Years) Aged Out No longer eligible b [...] EST Narrative 11/15/2024 3:30 PM EST ? [facility] ? [address] ?[place] [address] ?XRay Report ? Signed ? Patient: Stopa,Luc J ?MR#: [id number] ?? 78 ? : 1980 ?Acct:[id number] ? Age/Sex: 44 / M ?ADM Date: 11/15/24 ? Loc: HO.HOSX ? Attending Dr: Shreya Whelan PA-C ? Ordering Physician: Shreya Whelan PA-C ?? Date of Service: 11/15/24 ?? Procedure(s): XR ankle LT min 3V ?? Accession Number(s): [id number] ? cc: Diann Ramirez MD; Shreya Whelan [...] DD/ 1317 ? TD/TT: 11/15/24 1320 ? Director Metabolism: ? Procedure Note Colt Avendaño - 11/15/2024 [facility] [address] [facility] [address] [place] [address] XRay Report Signed Patient: Luc Erickson R#: [id number] [birth year] : 1980Acct:[id number] Age/Sex: 44 / MADM Date: 11/15/24 Loc: IAN Attending Dr: Shreya Whelan PA-C Ordering Physician: Shreya Whelan PA-C Date of Service: 11/15/24 Procedure(s): XR ankle LT min 3V Accession Number(s): [id number] cc: Diann Ramirez MD; Shreya Whelan PA-C [...] 11/15/24 1527 DD/ 1317 TD/TT: 11/15/24 1320 Director Metabolism: [facility] External Provider IMG XR PROCEDURES Final Result * XR Tibia Fibula 2 Views Left (11/11/2024 10:45 AM EST) Anatomical Region Laterality Modality Lower Extremities, Lower Leg Left Rad iographic Imaging 11/11/2024 10:4 5 AM EST Narrative 11/11/2024 11:32 AM EST ? [facility] ?[address] ?[place] [address] ?XRay Report ? Signed ? Patient: Stopa,Luc J ?MR#: [id number] ?? 78 ? : 1980 ?Acct:[id number] ? Age/Sex: 44 / M ?ADM Date: 01/23/25 ? Loc: HO.ED ? Attending Dr: ? Ordering Physician: Generic ED Physician ?? Date of Service: 11/11/24 ?? Procedure(s): XR tibia fibula LT 2V ?? Accession Number(s): [id number] ? cc: Diann Ramirez MD; Generic ED [...] DD/ 1045 ? TD/TT: 11/11/24 1100 ? Director Metabolism: MSM ? Procedure Note Donalan, Image - 11/11/2024 [place] [address] XRay Report Signed Patient: Luc Erickson JMR#: [id number] 78 : 1980Acct:[id number] Age/Sex: 44 / MADM Date: 11/11/24 Loc: .ED Attending Dr: Ordering Physician: Generic ED Physician Date of Service: 11/11/24 Procedure(s): XR tibia fibula LT 2V Accession Number(s): [id number] cc: Diann Ramirez MD; Generic ED Physician [...] 11/11/24 1129 DD/ 1045 TD/TT: 11/11/24 1100 Director Metabolism: FEMI [facility] External Provider IMG XR PROCEDURES Final Result * FL Esophagus Barium Swallow (09/30/2024 8:33 AM EST) Anatomical Region Laterality Modality Head, Neck Radiographic Lacey ging 09/30/2024 8:33 AM EST Narrative 09/30/2024 4:36 PM EST ? [facility] ?[address] ?[place] [address] ? Fluoroscopy Report ? Signed ? Patient: Luc Erickson ?MR#: [id number] ?? 78 ? : 1980 ?Acct:[id number] ? Age/Sex: 44 / M ?ADM Date: 09/30/24 ? Loc: HO.XRAY ? Attending Dr: Diann Ramirez MD ? Ordering Physician: Diann Ramirez MD ?? Date of Service: 09/30/24 ?? Procedure(s): FL barium swallow ?? Accession Number(s): [id number] ? cc: Diann Ramirez MD ? EXAMINATION: [...] ??09/30/2024 04:33 PM EST RP ?? Workstation: [id number] ? Dictated By: ?Perfecto Babb ? Signed By: ?<Electronically signed by Perfecto Babb in OV> ? 09/30/24 1633 ?<Electronically signed by Carter Ruiz MD in OV> ? 09/30/24 1636 ? DD/ 0833 ? TD/TT: 09/30/24 0904 ? Director Metabolism: ? Procedure Note Colt Avendaño - 10/01/[address] [address] Fluoroscopy Report Signed Patient: Luc Erickson JMR#: [id number] [birth year] : 1980Acct:[id number] Age/Sex: 44 / MADM Date: 09/30/24 Loc: HO.XRAY Attending Dr: Diann Ramirez MD Ordering Physician: Diann Ramirez MD Date of Service: 09/30/24 Procedure(s): FL barium swallow Accession Number(s): [id number] cc: Diann Ramirez MD EXAMINATION: XR FLUOROSCOPY [...] 09/30/24 1636 DD/ 0833 TD/TT: 09/30/24 0904 Director Metabolism: us Diann Ramirez MD IMG FLUOROSCOPY PROCEDURES Edited Result - Final * POCT COLLIN-14 Urine Drug Screen (09/22/2024 9:58 AM EST) Benzodiazepines Screen, Urine Positive Buprenophine Screen, Urine Positive Urine Urine specimen obtained by clean catch procedure / Unknown 09/22/2024 9:58 AM EST Narrative Naomi Reyes RN - 09/22/2024 9:58 AM EST Lot# [id number] Exp: 09-25-25 us Diann Ramirez MD POINT OF CARE TEST ENTER/ED IT ORDERABLES Final Result * (ABNORMAL) Lipid Panel, Standard (03/11/2024 1:07 PM EDT) Triglycerides 40 <150 mg/dL [facility] Comment:Desirable Triglyceri de: less than 150 mg/dLBorderline High Triglyceride 150-199 mg/dLHigh Triglyceride: 200-499 mg/dLVery High Triglyceride: greater than or equal to 5OO mg/dL Cholesterol 141 <200 mg/dL [facility] Comment:Desirable Cholestero l: less than 200 mg/dLBorderline High Cholesterol: 200-239 mg/dLHigh Cholesterol: greater than 239 mg/dL LDL Cholesterol Calculated 93 <100 mg/dL [facility] Comment:Desirable LDL: less than 100 mg/dLNear Optimal/Above Optimal LDL: 110- 129 mg/dLBorderline High LDL: 130-159 mg/dLHigh LDL: 160-189 mg/dLVery High LDL: greater than or equal to 190 mg/dL HDL Cholesterol 40(L) >40 mg/dL [facility] Comment:Desirable HDL: great er than 40 mg/dL Note: This HDL assay may give artificially low results in patients with liver disease. Blood Venous blood specimen / Unknown 03/11/2024 1:07 PM EDT 03/11/2024 2:22 PM EDT us Diann Ramirez MD LAB BLOOD ORDERABLES Final Result [facility] [address] [place] [phone] * HIV AB/AG (08/07/2022 2:03 PM EDT) HIV AB/AG Nonreactive Nonreactive [facility] Comment: HIV-1 p24 Ag and/or [...] detection of this assay. ?? The Cha Crane Engineer HIV Ag/Ab Combo assay result and supplemental assay results should be interpreted in conjunction with the patient's clinical presentation, history and other laboratory results. ??If the results are inconsistent with clinical evidence, additional testing is suggested to confirm the result. 08/07/2022 2:03 PM EDT us Tra Linton MD HISTORICAL/NON ORDERAB LE LABS Final Result [facility] * HEPATITIS C AB W/REFL TO HCV RNA, QN, PCR (07/01/2022 10:13 AM EDT) HEPATITIS C ANTIBODY NON-REACT JESSEE NON-REACT JESSEE [facility] INDEX 0.14 <1.00 [facility] Comment: ?? HCV antibody was non-reactive. There is no laboratory ?? evidence of HCV infection. ?? In most cases, no further action is required. However, if recent HCV exposure is suspected, a test for HCV RNA (test code 50561) is suggested. ?? For additional information please refer to [email or web address].[email or web address]/faq/[email or web address] (This link is being provided for informational/ educational purposes only.) ?? 07/01/2022 10:1 3 AM EDT us Diann Ramirez MD HISTORICAL/NON ORDERABLE PUMA JAMESON Final Result [facility] [address] from Last 3 Months or Most Recently Relevant to Health Maintenance Insurance [employer] * Guarantor: Luc Erickson Account Type Relation to Patient Date of Phone Billing Address Personal/[place] [address] Care Teams Boat Hoist Operator Helper Relationship Specialty Start Date End Date Beauzile, Thevenin, MD [address] [place] [address] PCP - General Internal Medicine 07/16/12
--- OUTSIDE RECORDS SUMMARY | 2024-11-17 12:39 | XMS_ITS | Encounter Summary ---
Author Organization [employer] Address 75 [facility] 7 [place] [address] Care Team Providers Care Orthotics Assistant Name Role Phone Diann Ramirez MD Primary Care Provider [phone] Reason for Visit * Reason Onset Date Comments Appointment Request 04/28/2024 Encounter Details Date Type Department Care Team (Late st Contact Info) Description 04/28/2024 Telephone [facility] [address] [place] [address] Diann Ramirez MD [address] [place] [address] Appointment Request Social History Tobacco Use Types [...] Miscellaneous Notes * Telephone Encounter - Shahriar Philippe - 04/28/2024 10:04 AM EDT Tc from pt calling to inform he won't be able to make it 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 Please contact pt at [phone]. documented in this encounter Plan of Treatment Upcoming Encounters Date Type Department Care Team (Late st Contact Info) Description 12/20/2024 2:00 PM EST Telemedicine [facility] [address] [place] [address] Naomi Reyes, RN [address] [place] [address] 02/15/2025 1:30 PM EDT Office Visit [facility] [address] [place] [address] Diann Ramirez MD [address] [place] [address] documented as of this encounter Visit Diagnoses Not on filedocumented in this encounter Additional Health Concerns Assessment Noted Time PHQ-9 Depression Total Score: 4 03/20/20 24 9:12 AM EDT documented as of this encounter Care Teams Orthotics Assistant Relationship Specialty Start Date End Date Diann Ramirez MD [address] [place] [address] PCP - General Internal Medicine 07/16/12 documented as of this encounter
--- OUTSIDE RECORDS SUMMARY | 2024-11-17 12:39 | XMS_ITS | Encounter Summary ---
Author Organization [employer] Address 75 [facility] 7 [place] [address] Care Team Providers Care Freezer Operator Name Role Phone Diann Ramirez MD Primary Care Provider [phone] Reason for Visit * Reason Onset Date Comments Appointment Request 01/13/2024 Encounter Details Date Type Department Care Team (Late st Contact Info) Description 01/13/2024 Telephone [facility] [address] [place] [address] Diann Ramirez MD [address] [place] [address] Appointment Request Social History Tobacco Use Types [...] Info) Description 12/20/2024 2:00 PM EST Telemedicine [facility] [address] [place] [address] Naomi Reyes, TABATHA [address] [place] [address] 02/15/2025 1:30 PM EDT Office Visit [facility] [address] [place] [address] Diann Ramirez MD [address] [place] [address] documented as of this encounter Visit Diagnoses Not on filedocumented in this encounter Additional Health Concerns Assessment Noted Time PHQ-9 Depression Total Score: 1 10/31/19 23 3:59 PM EST documented as of this encounter Care Teams Freezer Operator Relationship Specialty Start Date End Date Diann Ramirez MD [address] [place] [address] PCP - General Internal Medicine 07/16/12 documented as of this encounter
--- OUTSIDE RECORDS SUMMARY | 2024-11-17 12:39 | XMS_ITS | Encounter Summary ---
Author Organization [employer] Address [address] [place] [address] 7 [place] [address] Care Team Providers Care Hand Method Lasting Machine Operator Name Role Phone Diann Ramirez MD Primary Care Provider [phone] [phone] Reason for Referral * Consultation (Routine) - Closed Specialty Diagnoses / Procedures Referred By Contcary t Referred To Contact Behavioral Health Diagnoses Anxiety Diann Ramirez MD [address] [place] [address] Phone: tel: fax: Referral ID Status Reason Start Date Expiration Date V isits Requested Visits Authorized [id number] Closed Specialty Services Required 03/30/2024 03/30/2025 1 1 Encounter Details Date Type Department Care Team ([facility] st Contact Info) Description 03/30/2024 Orders Only [facility] [address] [place] [address] Diann Ramirez MD [address] [place] [address] Anxiety (Primary Dx) Social History Tobacco Use [...] Description 12/20/2024 2:00 PM EST Telemedicine [facility] [address] [place] [address] Naomi Reyes RN [address] [place] [address] 02/15/2025 1:30 PM EDT Office Visit [facility] [address] [place] [address] Diann Ramirez MD [address] [place] [address] Scheduled Referrals Name Type Priority Associated Diagnoses Order Schedule Referral to Behavioral Health Outpatient Referral Routine Anxiety Expected: 03/30/2024 (Approximate), Expires: 03/30/2025 documented as of this encounter Visit Diagnoses Diagnosis Anxiety- Primary Anxiety state, unspecified documented in this encounter Additional Health Concerns Assessment Noted Time PHQ-9 Depression Total Score: 4 03/20/20 24 9:12 AM EDT documented as of this encounter Care Teams Hand Method Lasting Machine Operator Relationship Specialty Start Date End Date Diann Ramirez MD [address] [place] [address] PCP - General Internal Medicine 07/16/12 documented as of this encounter
--- OUTSIDE RECORDS SUMMARY | 2024-11-17 12:39 | XMS_ITS | Encounter Summary ---
Author Organization [employer] Address 75 [facility] 7 [place] [address] Care Team Providers Care Sap Pi Developer Name Role Phone Diann Ramirez MD Primary Care Provider [phone] Reason for Visit * Reason Onset Date Comments Appointment Request 08/04/2024 Encounter Details Date Type Department Care Team ([facility] st Contact Info) Description 08/04/2024 Telephone [facility] [address] [place] [address] Diann Ramirez MD [address] [place] [address] Appointment Request Social History Tobacco Use Types [...] Miscellaneous Notes * Telephone Encounter - Juan Batesjia - 08/04/2024 2:04 PM EDT Tc from pt requesting to r/s CHEMICAL LABORATORY ASSISTANT RN appt scheduled for today, appt has been cancelled. Please contact at [phone] documented in this encounter Plan of Treatment Upcoming Encounters Date Type Department Care Team (Late st Contact Info) Description 12/20/2024 2:00 PM EST Telemedicine [facility] PEDS [address] [place] [address] Naomi Reyes RN [address] [place] [address] 02/15/2025 1:30 PM EDT Office Visit [facility] [address] [place] [address] Diann Ramirez MD [address] [place] [address] documented as of this encounter Visit Diagnoses Not on filedocumented in this encounter Additional Health Concerns Assessment Noted Time PHQ-9 Depression Total Score: 4 03/20/20 24 9:12 AM EDT documented as of this encounter Care Teams Sap Pi Developer Relationship Specialty Start Date End Date Diann Ramirez MD [address] [place] [address] PCP - General Internal Medicine 07/16/12 documented as of this encounter
--- OUTSIDE RECORDS SUMMARY | 2024-11-17 12:39 | XMS_ITS | Encounter Summary ---
Author Organization [employer] Address 75 [facility] 7 [place] [address] Care Team Providers Care Mercerizing Range Feeder Name Role Phone Diann Ramirez MD Primary Care Provider [phone] Reason for Visit * Reason Onset Date Comments Med Refill 07/01/2024 Encounter Details Date Type Department Care Team (Late st Contact Info) Description 07/01/2024 Telephone [facility] MEDICINE [address] [place] [address] Diann Ramirez MD [address] [place] [address] Med Refill Social History Tobacco Use Types [...] Info) Description 12/20/2024 2:00 PM EST Telemedicine [facility] [address] [place] [address] Naomi Reyes, TABATHA [address] [place] [address] 02/15/2025 1:30 PM EDT Office Visit [facility] [address] [place] [address] Diann Ramirez MD [address] [place] [address] documented as of this encounter Visit Diagnoses Not on filedocumented in this encounter Additional Health Concerns Assessment Noted Time PHQ-9 Depression Total Score: 4 03/20/20 24 9:12 AM EDT documented as of this encounter Care Teams Mercerizing Range Feeder Relationship Specialty Start Date End Date Diann Ramirez MD [address] [place] [address] PCP - General Internal Medicine 07/16/12 documented as of this encounter
--- OUTSIDE RECORDS SUMMARY | 2024-11-17 12:39 | XMS_ITS | Encounter Summary ---
Author Organization [employer] Address [address] [facility] [address] [place] [address] Care Team Providers Care Hose Seamer Name Role Phone Diann Ramirez MD Primary Care Provider [phone] Encounter Details Date Type Department Care Team [...] Info) Description 12/20/2024 2:00 PM EST Telemedicine [facility] P[facility] [address] [place] [address] Naomi Reyes RN [address] [place] [address] 02/15/2025 1:30 PM EDT Office Visit [facility] [address] [place] [address] Diann Ramirez MD [address] [place] [address] documented as of this encounter Visit Diagnoses Not on filedocumented in this encounter Additional Health Concerns Assessment Noted Time PHQ-9 Depression Total Score: 4 03/20/20 24 9:12 AM EDT documented as of this encounter Care Teams Hose Seamer Relationship Specialty Start Date End Date Diann Ramirez MD [address] [place] [address] PCP - General Internal Medicine 07/16/12 documented as of this encounter
--- OUTSIDE RECORDS SUMMARY | 2024-11-17 12:39 | XMS_ITS | Encounter Summary ---
Author Organization [employer] Address [address] [facility] 7t [place] [address] Care Team Providers Care Hazardous Materials Handler Name Role Phone Diann Ramirez MD Primary Care Provider [phone] Encounter Details Date Type Department Care Team (Late st Contact Info) Description 10/01/2024 Orders Only [facility]S [address] [place], [place] [phone] Diann Ramirez MD [address] [place] [address] Hiatal hernia (Primary Dx) Social History Tobacco [...] Info) Description 12/20/2024 2:00 PM EST Telemedicine [facility] PED[facility] [address] [place] [address] Naomi Reyes RN [address] [place] [address] 02/15/2025 1:30 PM EDT Office Visit [facility] [address] [place] [address] Diann Ramirez MD [address] [place] [address] documented as of this encounter Visit Diagnoses Diagnosis Hiatal hernia- Primary Diaphragmatic hernia without mention of obstruction or gangrene documented in this encounter Additional Health Concerns Assessment Noted Time PHQ-9 Depression Total Score: 4 03/20/20 24 9:12 AM EDT documented as of this encounter Care Teams Hazardous Materials Handler Relationship Specialty Start Date End Date Diann Ramirez MD [address] [place] [address] PCP - General Internal Medicine 07/16/12 documented as of this encounter
--- OUTSIDE RECORDS SUMMARY | 2024-11-17 12:39 | XMS_ITS | Encounter Summary ---
Author Organization [employer] Address 75 [facility] 7 [place] [address] Care Team Providers Care Mophead Trimmer And Wrapper Name Role Phone Diann Ramirez MD Primary Care Provider [phone] Reason for Visit * Reason Onset Date Comments Referral 11/21/2022 Encounter Details Date Type Department Care Team (Late st Contact Info) Description 11/21/2022 Telephone [facility] MEDICINE [address] [place] [address] Diann Ramirez MD [address] [place] [address] Referral Social History Tobacco Use Types Packs/Day [...] by Dr Linton Please contact pt at [phone] Please see above message. Thanks * Telephone Encounter - Mario Tavaresos - 11/21/2022 2:42 PM EST Tc from pt requesting a new referral for neurologist states don't want to be seen by Dr Linton Please contact pt at [phone] documented in this encounter Plan of Treatment Upcoming Encounters Date Type Department Care Team (Late st Contact Info) Description 12/20/2024 2:00 PM EST Telemedicine [facility] MED [facility] PEDS [address] [place] [address] Naomi Reyes RN [address] [place] [address] 02/15/2025 1:30 PM EDT Office Visit [facility] MED [facility] PEDS [address] [place] [address] Diann Ramirez MD [address] [place] [address] documented as of this encounter Visit Diagnoses Diagnosis Chronic cluster headache, not intractable- Primary documented in this encounter Additional Health Concerns Assessment Noted Time PHQ-9 Depression Total Score: 1 10/31/19 23 3:59 PM EST documented as of this encounter Care Teams Mophead Trimmer And Wrapper Relationship Specialty Start Date End Date Diann Ramirez MD [address] [place] [address] PCP - General Internal Medicine 07/16/12 documented as of this encounter
--- OUTSIDE RECORDS SUMMARY | 2024-11-17 12:39 | XMS_ITS | Encounter Summary ---
Author Organization [employer] Address 75 [facility] 7 [place] [address] Care Team Providers Care Agricultural Labor Camp Manager Name Role Phone Diann Ramirez MD Primary Care Provider +1- [phone] Reason for Visit * Reason Onset Date Comments Appointment Request 01/06/2023 Encounter Details Date Type Department Care Team (Late st Contact Info) Description 01/06/2023 Telephone [facility] MEDICINE [address] [place] [address] Diann Ramirez MD [address] [place] [address] Appointment Request Social History Tobacco Use Types [...] requesting to r/s appt on 01/06/23 ( ACTIVE DIRECTORY SYSTEMS ADMINISTRATOR Televisit ) documented in this encounter Plan of Treatment Upcoming Encounters Date Type Department Care Team (Late st Contact Info) Description 12/20/2024 2:00 PM EST Telemedicine [facility] MED & PEDS [address] [place] [address] Naomi Reyes, RN 505 [place] [address] 02/15/2025 1:30 PM EDT Office Visit [facility] MED & PEDS [address] [place] [address] Diann Ramirez MD 505 [place] [address] documented as of this encounter Visit Diagnoses Not on filedocumented in this encounter Additional Health Concerns Assessment Noted Time PHQ-9 Depression Total Score: 1 10/31/19 23 3:59 PM EST documented as of this encounter Care Teams Agricultural Labor Camp Manager Relationship Specialty Start Date End Date Diann Ramirez MD 505 [place] [address] PCP - General Internal Medicine 07/16/12 documented as of this encounter
--- OUTSIDE RECORDS SUMMARY | 2024-11-17 12:39 | XMS_ITS | Encounter Summary ---
Author Organization [employer] Address 75 [facility] 7 [place] [address] Care Team Providers Care Apparel Stock Checker Name Role Phone Diann Ramirez MD Primary Care Provider +1 [phone] Reason for Visit * Reason Onset Date Comments Med Refill 10/27/2024 Encounter Details Date Type Department Care Team ([facility] st Contact Info) Description 10/27/2024 Refill [facility] MED & PEDS [address] [place] [address] Diann Ramirez MD [address] [place] [address] Anxiety Social History Tobacco Use Types Packs/Day [...] 1 MG tablet To be sent to: [id number] - [place] - 1 [facility] [place] [facility] documented in this encounter Plan of Treatment Upcoming Encounters Date Type Department Care Team (Late st Contact Info) Description 12/20/2024 2:00 PM EST Telemedicine [facility] MED & PEDS [address] [place] [address] Naomi Reyes RN 505 [place] [address] 02/15/2025 1:30 PM EDT Office Visit [facility] MED & PEDS [address] [place] [address] Diann Ramirez MD [address] [place] [address] documented as of this encounter Visit Diagnoses Diagnosis Anxiety Anxiety state, unspecified documented in this encounter Additional Health Concerns Assessment Noted Time PHQ-9 Depression Total Score: 4 03/20/20 24 9:12 AM EDT documented as of this encounter Care Teams Apparel Stock Checker Relationship Specialty Start Date End Date Diann Ramirez MD [address] [place] [address] PCP - General Internal Medicine 07/16/12 documented as of this encounter
--- OUTSIDE RECORDS SUMMARY | 2024-11-17 12:39 | XMS_ITS | Encounter Summary ---
Author Organization [employer] Address 75 [facility] 7 [place] [address] Care Team Providers Care Hand Paint Mixer Name Role Phone Diann Ramirez MD Primary Care Provider +1 [phone] Reason for Visit * Reason Onset Date Comments Referral 08/09/2024 Encounter Details Date Type Department Care Team (Late st Contact Info) Description 08/09/2024 Telephone [facility] MEDICINE [address] [place] [address] Diann Ramirez MD 505 [place], [place] [phone] Referral Social History Tobacco Use Types Packs/Day [...] Jimenez RN - 08/14/2024 12:07 PM EDT [employer] message informing pt referral for Neuro was sent to [facility] and pt should get a call [...] [facility] MED & PEDS [address] [place] [address] Naomi Reyes RN 505 [place] [address] 02/15/2025 1:30 PM EDT Office Visit [facility] MED & PEDS [address] [place] [address] Diann Ramirez MD [address] [place] [address] documented as of this encounter Visit Diagnoses Not on filedocumented in this encounter Additional Health Concerns Assessment Noted Time PHQ-9 Depression Total Score: 4 03/20/20 24 9:12 AM EDT documented as of this encounter Care Teams Hand Paint Mixer Relationship Specialty Start Date End Date Diann Ramirez MD [address] [place] [address] PCP - General Internal Medicine 07/16/12 documented as of this encounter
--- OUTSIDE RECORDS SUMMARY | 2024-11-17 12:39 | XMS_ITS | Encounter Summary ---
Author Organization [employer] Address 75 [facility] 7t [place] [address] Care Team Providers Care Sampling Theory Teacher Name Role Phone Diann Ramirez MD Primary Care Provider +1- [phone] Encounter Details Date Type Department Care Team (Late Contact Info) Description 10/18/2022 Orders Only [facility] MEDICINE [address] [place] [address] Diann Ramirez MD [address] [place], [place] [phone] Acute cough; Bronchospasm Social History Tobacco Use [...] Info) Description 12/20/2024 2:00 PM EST Telemedicine [facility] MED & PEDS [address] [place], [place] [phone] Naomi Reyes, TABATHA 505 [place], [place] [phone] 02/15/2025 1:30 PM EDT Office Visit [facility] MED & PEDS [address] [place] [address] Diann Ramirez MD [address] [place] [address] documented as of this encounter Visit Diagnoses Diagnosis Acute cough Bronchospasm Acute bronchospasm documented in this encounter Care Teams Sampling Theory Teacher Relationship Specialty Start Date End Date Diann Ramirez MD [address] [place] [address] PCP - General Internal Medicine 07/16/12 documented as of this encounter
--- OUTSIDE RECORDS SUMMARY | 2024-11-17 12:39 | XMS_ITS | Clinical Summary ---
Author Organization [employer] [facility] ity Address [address] [place] [address] Care Team Providers Care Psychiatric Assistant Name Role Phone Unavailable Primary Care Provider [...]
--- OUTSIDE RECORDS SUMMARY | 2024-11-17 12:39 | XMS_ITS | Encounter Summary ---
Author Organization [employer] Address 75 [facility] 7 [place] [address] Care Team Providers Care Activity Leader Name Role Phone Diann Ramirez MD Primary Care Provider +1 [phone] Reason for Visit * Reason Onset Date Comments Med Refill 05/31/2024 Encounter Details Date Type Department Care Team (Late st Contact Info) Description 05/31/2024 Telephone [facility] MEDICINE [address] [place] [address] Diann Ramirez MD [address] [place] [address] Med Refill Social History Tobacco Use Types [...] 1 MG tablet To be sent to: [id number] - [place] - 1 [facility] [place] [facility] documented in this encounter Plan of Treatment Upcoming Encounters Date Type Department Care Team (Late st Contact Info) Description 12/20/2024 2:00 PM EST Telemedicine [facility] MED & PEDS [address] [place] [address] Naomi Reyes RN [address] [place] [address] 02/15/2025 1:30 PM EDT Office Visit [facility] MED & PEDS [address] [place] [address] Diann Ramirez MD [address] [place] [address] documented as of this encounter Visit Diagnoses Not on filedocumented in this encounter Additional Health Concerns Assessment Noted Time PHQ-9 Depression Total Score: 4 03/20/20 24 9:12 AM EDT documented as of this encounter Care Teams Activity Leader Relationship Specialty Start Date End Date Diann Ramirez MD [address] [place] [address] PCP - General Internal Medicine 07/16/12 documented as of this encounter
--- OUTSIDE RECORDS SUMMARY | 2024-11-17 12:39 | XMS_ITS | Encounter Summary ---
Author Organization [employer] Address 75 [facility] 7t [place] [address] Care Team Providers Care Bath Steward Name Role Phone Diann Ramirez MD Primary Care Provider +1 [phone] Encounter Details Date Type Department Care Team (Late st Contact Info) Description 05/18/2024 Orders Only [facility] MED & PEDS [address] [place], [place] [phone] Provider, MD Shar Social History Tobacco Use [...] [facility] MED & PEDS [address] [place] [address] Naomi Reyes RN [address] [place] [address] 02/15/2025 1:30 PM EDT Office Visit [facility] MED & PEDS [address] [place] [address] Diann Ramirez MD [address] [place] [address] documented as of this encounter Procedures Procedure [...] documented as of this encounter Care Teams Bath Steward Relationship Specialty Start Date End Date Diann Ramirez MD [address] [place] [address] PCP - General Internal Medicine 07/16/12 documented as of this encounter
--- OUTSIDE RECORDS SUMMARY | 2024-11-17 12:40 | XMS_ITS | Encounter Summary ---
Author Organization [employer] Address 75 [facility] 7 [place] [address] Care Team Providers Care Fiscal Manager Name Role Phone Diann Ramirez MD Primary Care Provider +1 [phone] Reason for Visit * Reason Onset Date Comments Med Refill 10/25/2022 Encounter Details Date Type Department Care Team (Late st Contact Info) Description 10/25/2022 Telephone [facility] MEDICINE [address] [place], [place] [phone] Diann Ramirez MD [address] [place], [place] [phone] Med Refill Social History Tobacco Use Types [...] * Telephone Encounter - Jamesrohit Fernando - 10/25/2022 10:23 AM EST Tc from pt requesting med refill for lorazepam 1 mg. Please contact at [phone] documented in this encounter Plan of Treatment Upcoming Encounters Date Type Department Care Team (Late st Contact Info) Description 12/20/2024 2:00 PM EST Telemedicine [facility] MED & PEDS [address] [place] [address] Naomi Reyes RN [address] [place] [address] 02/15/2025 1:30 PM EDT Office Visit [facility] MED & PEDS [address] [place] [address] Diann Ramirez MD [address] [place] [address] documented as of this encounter Visit Diagnoses Not on filedocumented in this encounter Care Teams Fiscal Manager Relationship Specialty Start Date End Date Diann Ramirez MD [address] [place] [address] PCP - General Internal Medicine 07/16/12 documented as of this encounter
== END 2024-11-17 10:34 | disposition home or self-care (01) ==
LOC: HO.HOSX 10:33
PROVIDERS: Visit Provider Physician Assistant
DX: S82.892D Other fracture of left lower leg, subsequent encounter for closed fracture with routine healing (principal)
CPT/HCPCS: 29515; 73610; 99212

== ENCOUNTER → 2024-11-17 11:42 | Outpatient (BNV) | payer MEDICAID, SELFPAY | PROVIDERS: Visit Provider Radiology Diagnostic Radiology | DX: M25.572 Pain in left ankle and joints of left foot (principal) | CPT/HCPCS: 73610 ==

== ENCOUNTER 2024-11-24 10:53 | Day surgery (SDC) | payer MEDICAID, SELFPAY ==
--- NOTE | ~2024-11-24 | FL_ITS ---
EXAMINATION: FL GUIDANCE ONLY HISTORY: LEFT ANKLE ORIF COMPARISON: Correlation is made to plain films of the left ankle dated 11/17/2024. TECHNIQUE: Fluoroscopy time: 0.2 minutes. Cumulative Dose: 0.821 mGy. DAP: 0.0142 mGym2 Images: 6. FINDINGS: Images demonstrate internal fixation of a fracture of the distal fibula with a sideplate and multiple orthopedic screws. A button is noted along the medial malleolus. Alignment is anatomic. FL/FL guidance in OR IMPRESSION: Fluoroscopy during procedure. Please see procedure report for additional information. Electronically signed by: Jovany Arambula MD 11/25/2024 08:56 AM [facility]
[2024-11-24 11:13] VITALS: BMI 33.9
[2024-11-24 11:26] VITALS: BP 123/61; PULSE 57; RESP 16; TEMP 36.3; O2SAT 96
--- NOTE | 2024-11-24 11:30 | HO.ANESPROP2 ---
Documented by User: Melba Nava NP 11/23/24 10:04 HPI - Anesthesia Eval Consult details Narrative: 44yo M for Left Ankle Fracture ORIF Suboxone 16mg daily PMFSH Active Problems Active Problems: All Active Problems Closed left ankle fracture (Acute) Thrombocytopenia (Chronic) COVID-19 (Acute) Past Medical History Medical History Anxiety Hypertension Surgical History Surgical History (Updated 11/24/24 @ 11:12 by Teresa Cross RN) History of hydrocelectomy Social History Social History Household Members: Other Alcohol intake: former Patient Tobacco Use Status: Former Tobacco user Use of substances other than those prescribed or required for medical reasons: No Substance Use Type: Opiates Are you DNR?: No Advance Directives: No Advance Directives Information Provided: Yes service: No Current occupational status: previously employed 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 Gender identity: Male Meds Allergies Allergy/AdvReac Type Severity Reaction Status Date / Time No Known Allergies Allergy Verified 11/24/24 11:09 Home Medications ?Medication ?Instructions ?Recorded ?Confirmed ?Last Taken ?Type atenolol 25 mg tablet 25 mg PO DAILY 04/08/24 11/24/24 Unknown History buprenorphine 8 mg-naloxone 2 mg 2 film sublingual DAILY 04/08/24 11/24/24 Unknown History sublingual film (Suboxone) ergocalciferol (vitamin D2) 1,250 1,250 mcg PO QWEEK 04/08/24 11/24/24 Unknown History mcg (50,000 unit) capsule hydroxyzine pamoate 50 mg capsule 50 mg PO TID 04/08/24 11/24/24 Unknown History lorazepam 1 mg tablet 1 mg PO QID PRN prn 04/08/24 11/24/24 Unknown History Exam Pertinent Lab Results Pertinent Lab Results: Laboratory Tests 03/24/24 08/10/24 12:15 12:18 WBC 7.3 Hgb 13.6 L Hct 39.8 L Plt Count 154 L Sodium 140 Potassium 3.6 Chloride 106 Carbon Dioxide 27 BUN 8 L Creatinine 0.84 Narrative Narrative: EKG 03/2024 Vent. Rate : 049 BPM Atrial Rate : 049 BPM P-R Int : 192 ms QRS Dur : 098 ms QT Int : 414 ms P-R-T Axes : 067 027 037 degrees QTc Int : 373 ms Sinus bradycardia with marked sinus arrhythmia Possible Anterior infarct , age undetermined Abnormal ECG When compared with ECG of 24-OCT-2022 13:46, Nonspecific T wave abnormality now evident in Anterior leads Assessment and Plan Assessment Anesthesia Assessment: Chart Reviewed Documented by User: Teresa Astudillo DO 11/24/24 13:09 PMFSH Past Medical History Medical History Anxiety Hypertension Family History Family history of problems with anesthesia: No Surgical History Surgical History (Updated 11/24/24 @ 11:12 by Teresa Cross RN) History of hydrocelectomy History of Problems with Anesthesia: No Social History Social History Household Members: Other Alcohol intake: former Patient Tobacco Use Status: Former Tobacco user Use of substances other than those prescribed or required for medical reasons: No Substance Use Type: Opiates Are you DNR?: No Advance Directives: No Advance Directives Information Provided: Yes service: No Current occupational status: previously employed 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 Gender identity: Male Meds Allergies Allergy/AdvReac Type Severity Reaction Status Date / Time No Known Allergies Allergy Verified 11/24/24 11:09 Home Medications ?Medication ?Instructions ?Recorded ?Confirmed ?Last Taken ?Type atenolol 25 mg tablet 25 mg PO DAILY 04/08/24 11/24/24 Unknown History buprenorphine 8 mg-naloxone 2 mg 2 film sublingual DAILY 04/08/24 11/24/24 Unknown History sublingual film (Suboxone) ergocalciferol (vitamin D2) 1,250 1,250 mcg PO QWEEK 04/08/24 11/24/24 Unknown History mcg (50,000 unit) capsule hydroxyzine pamoate 50 mg capsule 50 mg PO TID 04/08/24 11/24/24 Unknown History lorazepam 1 mg tablet 1 mg PO QID PRN prn 04/08/24 11/24/24 Unknown History Exam Exam Date and Time: 11/24/24 1130 Height,Weight and Vital Signs: Height 5 ft 10.5 in Weight 108.862 kg Vital Signs Temperature 97.3 F 11/24/24 11:26 Pulse Rate 57 11/24/24 11:26 Respiratory Rate 16 11/24/24 11:26 Blood Pressure 123/61 11/24/24 11:26 Pulse Oximetry 96 11/24/24 11:26 Oxygen Delivery Method Room Air 11/24/24 11:26 Temperature 97.3 F 11/24/24 11:26 Pulse Rate 57 11/24/24 11:26 Respiratory Rate 16 11/24/24 11:26 Blood Pressure 123/61 11/24/24 11:26 Pulse Oximetry 96 11/24/24 11:26 Oxygen Delivery Method Room Air 11/24/24 11:26 Airway Mallampati Class: II TM Dist: >3cm Neck ROM: Full Loose/Missing/Broken Teeth: Yes (edentulous top jaw, multiple missing teeth bottom jaw) Heart: S1S2 Lungs: CTAB Assessment and Plan Assessment Anesthesia Assessment: Anesthesia Plan Discussed and Chart Reviewed Final Anesthetic Review Family History of Problems with Anesthesia: No History of Problems with Anesthesia: No NPO: Yes ASA Class: III Final Preanesthetic Review: No Changes in Pt Med Stat, Meds/Allgs Chart Reviewed, Consent Obtained/Reviewed and Anes Risks/Benef Reviewed Patient Risk: Intermediate Procedure Risk: Intermediate Anesthetic Plan Anesthetic Plan: GA, Regional Block (left sciatic and saphenous nerve block) and Agree w/ Assess. and Plan Disposition: Standard PACU
[2024-11-24] MEDS: Lactated Ringers 1,000 ML 100 ML IVCONT (11:52)
--- OUTSIDE RECORDS SUMMARY | 2024-11-24 12:09 | XMS_ITS | Encounter Summary ---
Author Organization [employer] Address 75 [facility] 7 [place] [address] Care Team Providers Care Code Machine Operator Name Role Phone Diann Ramirez MD Primary Care Provider +1 [phone] Reason for Visit * Reason Onset Date Comments Appointment Request 06/11/2024 Encounter Details Date Type Department Care Team ([facility] st Contact Info) Description 06/11/2024 Telephone [facility] MEDICINE [address] [place] [address] Diann Ramirez MD [address] [place] [address] Appointment Request Social History Tobacco Use Types [...] Tc from pt calling in regards to PRODUCT MARKETING SPECIALIST visit from 06/18 that was canceled and is requesting to reschedule. Please contact pt at [phone]. documented in this encounter Plan of Treatment Upcoming Encounters Date Type Department Care Team (Late st Contact Info) Description 12/20/2024 2:00 PM EST Telemedicine [facility] MED & PEDS [address] [place] [address] Naomi Reyes RN [address] [place] [address] 02/15/2025 1:30 PM EDT Office Visit [facility] MED & PEDS [address] [place] [address] Diann Ramirez MD [address] [place] [address] documented as of this encounter Visit Diagnoses Not on filedocumented in this encounter Additional Health Concerns Assessment Noted Time PHQ-9 Depression Total Score: 4 03/20/20 24 9:12 AM EDT documented as of this encounter Care Teams Code Machine Operator Relationship Specialty Start Date End Date Diann Ramirez MD [address] [place] [address] PCP - General Internal Medicine 9/27/12 documented as of this encounter
--- OUTSIDE RECORDS SUMMARY | 2024-11-24 12:09 | XMS_ITS | Encounter Summary ---
Author Organization [employer] Address [address] [place] [address] Care Team Providers Care Manager Laboratory Name Role Phone Diann Ramirez MD Primary Care Provider +1- [phone] Reason for Visit * Reason Onset Date Comments Appointment Request 01/06/2023 Encounter Details Date Type Department Care Team (Late st Contact Info) Description 01/06/2023 Telephone [facility] MEDICINE [address] [place] [address] Diann Ramirez MD [address] [place] [address] Appointment Request Social History Tobacco Use Types [...] requesting to r/s appt on 01/06/23 ( AGRONOMY TEACHER Televisit ) documented in this encounter Plan of Treatment Upcoming Encounters Date Type Department Care Team (Late st Contact Info) Description 12/20/2024 2:00 PM EST Telemedicine [facility] MED & PEDS [address] [place] [address] Naomi Reyes, RN [address] [place] [address] 02/15/2025 1:30 PM EDT Office Visit [facility] MED & PEDS [address] [place] [address] Diann Ramirez MD [address] [place] [address] documented as of this encounter Visit Diagnoses Not on filedocumented in this encounter Additional Health Concerns Assessment Noted Time PHQ-9 Depression Total Score: 1 10/31/19 23 3:59 PM EST documented as of this encounter Care Teams Manager Laboratory Relationship Specialty Start Date End Date Diann Ramirez MD [address] [place] [address] PCP - General Internal Medicine 07/16/12 documented as of this encounter
--- OUTSIDE RECORDS SUMMARY | 2024-11-24 12:09 | XMS_ITS | Encounter Summary ---
Author Organization [employer] Address 75 [facility] 7 [place] [address] Care Team Providers Care Straw Baler Name Role Phone Diann Ramirez MD Primary Care Provider +1 [phone] Reason for Visit * Reason Onset Date Comments Appointment Request 06/17/2024 Encounter Details Date Type Department Care Team ([facility] st Contact Info) Description 06/17/2024 Telephone [facility] MEDICINE [address] [place] [address] Diann Ramirez MD [address] [place] [address] Appointment Request Social History Tobacco Use Types [...] would like a sooner appt than what senior grant writer offered documented in this encounter Plan of Treatment Upcoming Encounters Date Type Department Care Team (Late st Contact Info) Description 12/20/2024 2:00 PM EST Telemedicine [facility] MED & PEDS [address] [place] [address] Naomi Reyes RN [address] [place] [address] 02/15/2025 1:30 PM EDT Office Visit [facility] MED & PEDS [address] [place] [address] Diann Ramirez MD [address] [place] [address] documented as of this encounter Visit Diagnoses Not on filedocumented in this encounter Additional Health Concerns Assessment Noted Time PHQ-9 Depression Total Score: 4 03/20/20 24 9:12 AM EDT documented as of this encounter Care Teams Straw Baler Relationship Specialty Start Date End Date Diann Ramirez MD [address] [place] [address] PCP - General Internal Medicine 07/16/12 documented as of this encounter
--- OUTSIDE RECORDS SUMMARY | 2024-11-24 12:09 | XMS_ITS | Encounter Summary ---
Author Organization [employer] Address 75 [facility] 7 [place] [address] Care Team Providers Care Bag Builder Name Role Phone Diann Ramirez MD Primary Care Provider +1 [phone] Reason for Visit * Reason Onset Date Comments Referral 08/09/2024 Encounter Details Date Type Department Care Team (Late st Contact Info) Description 08/09/2024 Telephone [facility] MEDICINE [address] [place] [address] Diann Ramirez MD [address] [place], [place] [phone] Referral Social History Tobacco Use Types Packs/Day [...] Jimenez RN - 08/14/2024 12:07 PM EDT [employer] message informing pt referral for Neuro was sent to [facility] Neuro and pt should get a call [...] [facility] [address] [place] [address] Naomi Reyes RN [address] [place] [address] 02/15/2025 1:30 PM EDT Office Visit [facility] MED & PEDS [address] [place] [address] Diann Ramirez MD [address] [place] [address] documented as of this encounter Visit Diagnoses Not on filedocumented in this encounter Additional Health Concerns Assessment Noted Time PHQ-9 Depression Total Score: 4 03/20/20 24 9:12 AM EDT documented as of this encounter Care Teams Bag Builder Relationship Specialty Start Date End Date Diann Ramirez MD [address] [place] [address] PCP - General Internal Medicine 07/16/12 documented as of this encounter
--- OUTSIDE RECORDS SUMMARY | 2024-11-24 12:09 | XMS_ITS | Encounter Summary ---
Author Organization [employer] Address 75 [facility] 7 [place] [address] Care Team Providers Care Sausage Tier Name Role Phone Diann Ramirez MD Primary Care Provider +1 [phone] Reason for Visit * Reason Onset Date Comments Appointment Request 08/04/2024 Encounter Details Date Type Department Care Team ([facility] st Contact Info) Description 08/04/2024 Telephone [facility] MEDICINE [address] [place] [address] Diann Ramirez MD 505 [place] [address] Appointment Request Social History Tobacco Use Types [...] EDT Tc from pt requesting to r/s GRIP BOSS RN appt scheduled for today, appt has been cancelled. Please contact at [phone] documented in this encounter Plan of Treatment Upcoming Encounters Date Type Department Care Team (Late st Contact Info) Description 12/20/2024 2:00 PM EST Telemedicine [facility] MED & PEDS [address] [place] [address] Naomi Reyes RN 505 [place] [address] 02/15/2025 1:30 PM EDT Office Visit [facility] [address] [place] [address] Diann Ramirez MD 505 [place] [address] documented as of this encounter Visit Diagnoses Not on filedocumented in this encounter Additional Health Concerns Assessment Noted Time PHQ-9 Depression Total Score: 4 03/20/20 24 9:12 AM EDT documented as of this encounter Care Teams Sausage Tier Relationship Specialty Start Date End Date Diann Ramirez MD 505 [place] [address] PCP - General Internal Medicine 07/16/12 documented as of this encounter
--- OUTSIDE RECORDS SUMMARY | 2024-11-24 12:09 | XMS_ITS | Encounter Summary ---
Author Organization [employer] Address [address] [employer] 7 [place] [address] Care Team Providers Care China And Silverware Salesperson Name Role Phone Diann Ramirez MD Primary Care Provider +[phone] Reason for Visit * Reason Onset Date Comments Med Refill 10/27/2024 Encounter Details Date Type Department Care Team ([facility] st Contact Info) Description 10/27/2024 Refill [facility] MED & PEDS 505 [place] [address] Diann Ramirez MD 505 [place] [address] Anxiety Social History Tobacco Use Types Packs/Day [...] 1 MG tablet To be sent to: [id number] - [place] - 1 [facility] [place] [facility] documented in this encounter Plan of Treatment Upcoming Encounters Date Type Department Care Team (Late st Contact Info) Description 12/20/2024 2:00 PM EST Telemedicine [facility] MED & PEDS 505 [place] [address] Naomi Reyes RN 505 [place] [address] 02/15/2025 1:30 PM EDT Office Visit [facility] MED & PEDS 505 [place] [address] Diann Ramirez MD 505 [place] [address] documented as of this encounter Visit Diagnoses Diagnosis Anxiety Anxiety state, unspecified documented in this encounter Additional Health Concerns Assessment Noted Time PHQ-9 Depression Total Score: 4 03/20/20 24 9:12 AM EDT documented as of this encounter Care Teams China And Silverware Salesperson Relationship Specialty Start Date End Date Diann Ramirez MD [address] [place] [address] PCP - General Internal Medicine 07/16/12 documented as of this encounter
--- OUTSIDE RECORDS SUMMARY | 2024-11-24 12:09 | XMS_ITS | Encounter Summary ---
Author Organization [employer] Address 75 [facility] 7t [place] [address] Care Team Providers Care Head Track Coach Name Role Phone Diann Ramirez MD Primary Care Provider [phone] Encounter Details Date Type Department Care Team (Late st Contact Info) Description 05/18/2024 Orders Only [facility] MED & PEDS [address] [place], [place] [phone] Provider, MD Shar Social History Tobacco Use [...] [facility] 505 [place] [address] Naomi Reyes RN 505 [place] [address] 02/15/2025 1:30 PM EDT Office Visit [facility] MED [facility]EDS 505 [place] [address] Diann Ramirez MD 505 [place] [address] documented as of this encounter Procedures Procedure [...] documented as of this encounter Care Teams Head Track Coach Relationship Specialty Start Date End Date Diann Ramirez MD 505 [place] [address] PCP - General Internal Medicine 07/16/12 documented as of this encounter
--- OUTSIDE RECORDS SUMMARY | 2024-11-24 12:09 | XMS_ITS | Encounter Summary ---
Author Organization [employer] Address 75 [facility] 7 [place] [address] Care Team Providers Care Demolition Specialist Name Role Phone Diann Ramirez MD Primary Care Provider [phone] Reason for Visit * Reason Onset Date Comments Med Refill 03/18/2023 Encounter Details Date Type Department Care Team (Late st Contact Info) Description 03/18/2023 Telephone [facility] MEDICINE 230 [place] [address] Dinan Ramirez MD 505 [place], [place] [phone] Med Refill Social History Tobacco Use Types [...] [facility] 505 [place] [address] Naomi Reyes RN 505 [place] [address] 02/15/2025 1:30 PM EDT Office Visit [facility] MED & PEDS [address] [place] [address] Diann Ramirez MD 505 [place] [address] documented as of this encounter Visit Diagnoses Not on filedocumented in this encounter Additional Health Concerns Assessment Noted Time PHQ-9 Depression Total Score: 1 10/31/19 23 3:59 PM EST documented as of this encounter Care Teams Demolition Specialist Relationship Specialty Start Date End Date Diann Ramirez MD [address] [place] [address], [place] [address] PCP - General Internal Medicine 07/16/12 documented as of this encounter
--- OUTSIDE RECORDS SUMMARY | 2024-11-24 12:09 | XMS_ITS | Encounter Summary ---
Author Organization [employer] Address 75 [facility] 7 [place] [address] Care Team Providers Care Router Operator Radial Name Role Phone Diann Ramirez MD Primary Care Provider [phone] Reason for Visit * Reason Onset Date Comments Med Refill 05/31/2024 Encounter Details Date Type Department Care Team (Late st Contact Info) Description 05/31/2024 Telephone [facility] MEDICINE 230 [place] [address] Diann Ramirez MD 505 [place] [address] Med Refill Social History Tobacco Use Types [...] Miscellaneous Notes * Telephone Encounter - Long oJnas - 05/31/2024 1:28 PM EDT TC from pt requesting medication refill. Medications needing refill : LORazepam (Ativan) 1 MG tablet To be sent to: [facility][id number] - [place] - 1 [facility] [place] [facility] documented in this encounter Plan of Treatment Upcoming Encounters Date Type Department Care Team (Late st Contact Info) Description 12/20/2024 2:00 PM EST Telemedicine [facility] MED & PEDS 505 [place] [address] Naomi Reyes RN 505 [place] [address] 02/15/2025 1:30 PM EDT Office Visit [facility] MED & PEDS 505 [place] [address] Diann Ramirez MD 505 [place] [address] documented as of this encounter Visit Diagnoses Not on filedocumented in this encounter Additional Health Concerns Assessment Noted Time PHQ-9 Depression Total Score: 4 03/20/20 24 9:12 AM EDT documented as of this encounter Care Teams Router Operator Radial Relationship Specialty Start Date End Date Diann Ramirez MD 505 [place] [address] PCP - General Internal Medicine 07/16/12 documented as of this encounter
--- OUTSIDE RECORDS SUMMARY | 2024-11-24 12:09 | XMS_ITS | Encounter Summary ---
Author Organization [employer] Address 75 [facility] 7 [place] [address] Care Team Providers Care Program Planner Name Role Phone Diann Ramirez MD Primary Care Provider [phone] Reason for Visit * Reason Onset Date Comments Med Refill 11/24/2024 Encounter Details Date Type Department Care Team (Late st Contact Info) Description 11/24/2024 Refill [facility] MEDICINE 230 [place] [address] Diann Ramirez MD 505 [place] [address] Anxiety Social History Tobacco Use Types Packs/Day [...] encounter Miscellaneous Notes * Telephone Encounter - Erik Chambers - 11/24/2024 9:10 AM EST TC from pt requesting medication refill. Medications needing refill : LORazepam (Ativan) 1 MG tablet To be sent to: [facility][id number] - [place] - 1 [facility] [place] [facility] documented in this encounter Plan of Treatment Upcoming Encounters Date Type Department Care Team (Late st Contact Info) Description 12/20/2024 2:00 PM EST Telemedicine [facility] MED & PEDS 505 [place] [address] Naomi Reyes RN 505 [place] [address] 02/15/2025 1:30 PM EDT Office Visit [facility] MED & PEDS 505 [place] [address] Diann Ramirez MD 505 [place] [address] documented as of this encounter Visit Diagnoses Diagnosis Anxiety Anxiety state, unspecified documented in this encounter Additional Health Concerns Assessment Noted Time PHQ-9 Depression Total Score: 4 03/20/20 24 9:12 AM EDT documented as of this encounter Care Teams Program Planner Relationship Specialty Start Date End Date Diann Ramirez MD [address] [place] [address] PCP - General Internal Medicine 07/16/12 documented as of this encounter
--- OUTSIDE RECORDS SUMMARY | 2024-11-24 12:09 | XMS_ITS | Encounter Summary ---
Author Organization [employer] Address 75 [facility] 7t [place] [address] Care Team Providers Care Steam Power Plant Operator Name Role Phone Diann Ramirez MD Primary Care Provider [phone] Encounter Details Date Type Department Care Team (Late st Contact Info) Description 10/01/2024 Orders Only [facility] CHC MED & PEDS [address] [place], [place] [phone] Diann Ramirez MD 505 [place] [address] Hiatal hernia (Primary Dx) Social History Tobacco [...] [facility] 505 [place] [address] Naomi Reyes RN 505 [place] [address] 02/15/2025 1:30 PM EDT Office Visit [facility] MED & PEDS 505 [place] [address] Diann Ramirez MD 505 [place] [address] documented as of this encounter Visit Diagnoses Diagnosis Hiatal hernia- Primary Diaphragmatic hernia without mention of obstruction or gangrene documented in this encounter Additional Health Concerns Assessment Noted Time PHQ-9 Depression Total Score: 4 03/20/20 24 9:12 AM EDT documented as of this encounter Care Teams Steam Power Plant Operator Relationship Specialty Start Date End Date Diann Ramirez MD 505 [place] [address] PCP - General Internal Medicine 07/16/12 documented as of this encounter
--- OUTSIDE RECORDS SUMMARY | 2024-11-24 12:09 | XMS_ITS | Encounter Summary ---
Author Organization [employer] Address 75 [facility] 7 [place] [address] Care Team Providers Care Interior Wall Assembler Name Role Phone Diann Ramirez MD Primary Care Provider [phone] Reason for Visit * Reason Onset Date Comments Med Refill 07/01/2024 Encounter Details Date Type Department Care Team (Late st Contact Info) Description 07/01/2024 Telephone [facility] MEDICINE 230 [place] [address] Diann Ramirez MD 505 [place] [address] Med Refill Social History Tobacco Use Types [...] Info) Description 12/20/2024 2:00 PM EST Telemedicine [facility] MED & PEDS 505 [place] [address] Naomi Reyes, TABATHA 505 [place] [address] 02/15/2025 1:30 PM EDT Office Visit [facility] MED & PEDS 505 [place] [address] Diann Ramirez MD 505 [place] [address] documented as of this encounter Visit Diagnoses Not on filedocumented in this encounter Additional Health Concerns Assessment Noted Time PHQ-9 Depression Total Score: 4 03/20/20 24 9:12 AM EDT documented as of this encounter Care Teams Interior Wall Assembler Relationship Specialty Start Date End Date Diann Ramirez MD 505 [place] [address] PCP - General Internal Medicine 07/16/12 documented as of this encounter
--- OUTSIDE RECORDS SUMMARY | 2024-11-24 12:09 | XMS_ITS | Encounter Summary ---
Author Organization [employer] Address 75 [facility] 7t [place] [address] Care Team Providers Care Surface Plate Finisher Name Role Phone Diann Ramirez MD Primary Care Provider [phone] Encounter Details Date Type Department Care Team (Late st Contact Info) Description 11/11/2024 Orders Only [facility] External Provider, [facility] Social History Tobacco Use Types Packs/Day [...] Description 12/20/2024 2:00 PM EST Telemedicine [facility] MED & PEDS 505 [place] [address] Naomi Reyes RN 505 [place] [address] 02/15/2025 1:30 PM EDT Office Visit [facility] MED & PEDS 505 [place] [address] Diann Ramirez MD 505 [place] [address] documented as of this encounter Procedures Procedure [...] Surgeons ? [address] ?[place] [address] ?XRay Report ? Signed ? Patient: Stopa,Luc J ?MR#: [id number] ?? 78 ? : 1980 ?Acct:[id number] ? Age/Sex: 44 / M ?ADM Date: 01/27/25 ? Loc: HO.HOSX ? Attending Dr: Shreya Whelan PA-C ? Ordering Physician: Shreya Whelan PA-C ?? Date of Service: 11/15/24 ?? Procedure(s): XR ankle LT min 3V ?? Accession Number(s): [id number] ? cc: Diann Ramirez MD; Shreya Whelan [...] DD/ 1317 ? TD/TT: 11/15/24 1320 ? Technical System Analyst: ? Procedure Note Kateryna, Image - 11/15/2024 [facility] [address] [place] [address] [address] [place] [address] XRay Report Signed Patient: Luc Erickson JMR#: [id number] [birth year] : 1980Acct:[id number] Age/Sex: 44 / MADM Date: 11/15/24 Loc: IAN Attending Dr: Shreya Whelan PA-C Ordering Physician: Shreya Whelan PA-C Date of Service: 11/15/24 Procedure(s): XR ankle LT min 3V Accession Number(s): [id number] cc: Diann Ramirez MD; Meuse,Ta-Anabel PA-C EXAMINATION: [...] 11/15/24 1527 DD/ 1317 TD/TT: 11/15/24 1320 Technical System Analyst: [facility] External Provider IMG XR PROCEDURES Final Result * XR Tibia Fibula 2 Views Left (11/11/2024 10:45 AM EST) Anatomical Region Laterality Modality Lower Extremities, Lower Leg Left Rad iographic Imaging 11/11/2024 10:4 5 AM EST Narrative 11/11/2024 11:32 AM EST ? [facility] ?[address] ?[place] [address] ?XRay Report ? Signed ? Patient: Stopa,Luc J ?MR#: [id number] ?? 78 ? : 1980 ?Acct:[id number] ? Age/Sex: 44 / M ?ADM Date: 11/11/24 ? Loc: HO.ED ? Attending Dr: ? Ordering Physician: Generic ED Physician ?? Date of Service: 11/11/24 ?? Procedure(s): XR tibia fibula LT 2V ?? Accession Number(s): [id number] ? cc: Diann Ramirez MD; Generic ED [...] DD/ 1045 ? TD/TT: 11/11/24 1100 ? Technical System Analyst: MSM ? Procedure Note Donotuseinterpreter, Image - 11/11/2024 [place] [address] XRay Report Signed Patient: Luc Erickson JMR#: [id number] [birth year] : 1980Acct:[id number] Age/Sex: 44 / MADM Date: 11/11/24 Loc: HO.ED Attending Dr: Ordering Physician: Generic ED Physician Date of Service: 11/11/24 Procedure(s): XR tibia fibula LT 2V Accession Number(s): [id number] cc: Diann Ramirez MD; Generic ED Physician [...] 11/11/24 1129 DD/ 1045 TD/TT: 11/11/24 1100 Technical System Analyst: FEMI us [facility] External Provider IMG XR PROCEDURES Final Result * XR Ankle 3+ Views Left (11/11/2024 10:45 AM EST) Anatomical Region Laterality Modality Lower Extremities, Ankle Left Radiogr aphic Imaging 11/11/2024 10:4 5 AM EST Narrative 11/11/2024 11:32 AM EST ? [facility] ?[address] ?[place] [address] ?XRay Report ? Signed ? Patient: Stopa,Luc J ?MR#: [id number] ?? 78 ? : 1980 ?Acct:[id number] ? Age/Sex: 44 / M ?ADM Date: 11/11/24 ? Loc: HO.ED ? Attending Dr: ? Ordering Physician: Generic ED Physician ?? Date of Service: 11/11/24 ?? Procedure(s): XR ankle LT min 3V ?? Accession Number(s): [id number] ? cc: Diann Ramirez MD; Generic ED [...] DD/ 1045 ? TD/TT: 11/11/24 1100 ? Technical System Analyst: MSM ? Procedure Note Kateryna, Colt - 11/11/2024 [facility] [address] [place] [address] XRay Report Signed Patient: Luc Erickson JMR#: [id number] [birth year] : 1980Acct:[id number] Age/Sex: 44 / MADM Date: 11/11/24 Loc: HO.ED Attending Dr: Ordering Physician: Generic ED Physician Date of Service: 11/11/24 Procedure(s): XR ankle LT min 3V Accession Number(s): [id number] cc: Diann Ramirez MD; Generic ED Physician [...] by: Livan Swenson MD 11/11/2024 11:29 AM [facility] Dictated By: Livan Swenson MD Signed By: <Electronically signed by Livan Swenson MD in OV> 11/11/24 1129 DD/ 1045 TD/TT: 11/11/24 1100 Technical System Analyst: FEMI [facility] External Provider IMG XR PROCEDURES Final Result documented in this encounter Visit Diagnoses Not on filedocumented in this encounter Additional Health Concerns Assessment Noted Time PHQ-9 Depression Total Score: 4 03/20/20 24 9:12 AM EDT documented as of this encounter Care Teams Surface Plate Finisher Relationship Specialty Start Date End Date Diann Ramirez MD [address] [place] [address] PCP - General Internal Medicine 07/16/12 documented as of this encounter
--- OUTSIDE RECORDS SUMMARY | 2024-11-24 12:09 | XMS_ITS | Encounter Summary ---
Author Organization [employer] Address 75 [facility] 7 [place] [address] Care Team Providers Care Geriatrics Physician Name Role Phone Diann Ramirez MD Primary Care Provider [phone] [phone] Reason for Visit * Reason Onset Date Comments Med Refill 07/28/2024 Encounter Details Date Type Department Care Team (Late st Contact Info) Description 07/28/2024 Telephone [facility] MEDICINE [address] [place] [address] Diann Ramirez MD 505 [place], [place] [phone] Med Refill Social History Tobacco Use Types [...] 1 MG tablet To be sent to: [facility][id number] - [place] - 1 [place] [facility] documented in this encounter Plan of Treatment Upcoming Encounters Date Type Department Care Team (Late st Contact Info) Description 12/20/2024 2:00 PM EST Telemedicine [facility] MED & PEDS [address] [place] [address] Naomi Reyes RN 505 [place] [address] 02/15/2025 1:30 PM EDT Office Visit [facility] MED & PEDS 505 [place] [address] Diann Ramirez MD 505 [place] [address] documented as of this encounter Visit Diagnoses Not on filedocumented in this encounter Additional Health Concerns Assessment Noted Time PHQ-9 Depression Total Score: 4 03/20/20 24 9:12 AM EDT documented as of this encounter Care Teams Geriatrics Physician Relationship Specialty Start Date End Date Diann Ramirez MD 505 [place] [address] PCP - General Internal Medicine 07/16/12 documented as of this encounter
--- OUTSIDE RECORDS SUMMARY | 2024-11-24 12:10 | XMS_ITS | Encounter Summary ---
Author Organization [employer] Address 75 [facility] 7t [place] [address] Care Team Providers Care Manufacturing Inspector Name Role Phone Diann Ramirez MD Primary Care Provider [phone] Encounter Details Date Type Department Care Team (Late Contact Info) Description 10/18/2022 Orders Only [facility] MEDICINE [address] [place] [address] Diann Ramirez MD [address] [place], [place] [phone] Acute cough; Bronchospasm Social History Tobacco Use [...] Info) Description 12/20/2024 2:00 PM EST Telemedicine [facility] MED & PEDS [address] [place], [place] [phone] Naomi Reyes, TABATHA 505 [place], [place] [phone] 02/15/2025 1:30 PM EDT Office Visit [facility] MED & PEDS [address] [place] [address] Diann Ramirez MD [address] [place] [address] documented as of this encounter Visit Diagnoses Diagnosis Acute cough Bronchospasm Acute bronchospasm documented in this encounter Care Teams Manufacturing Inspector Relationship Specialty Start Date End Date Diann Ramirez MD [address] [place] [address] PCP - General Internal Medicine 07/16/12 documented as of this encounter
--- OUTSIDE RECORDS SUMMARY | 2024-11-24 12:10 | XMS_ITS | Encounter Summary ---
Author Organization [employer] Address [address] [place] [address] 7 [place] [address] Care Team Providers Care Consultant Technology Name Role Phone Diann Ramirez MD Primary Care Provider [phone] Reason for Referral * Consultation (Routine) - Closed Specialty Diagnoses / Procedures Referred By Contcary t Referred To Contact Behavioral Health Diagnoses Anxiety Diann Ramirez MD [address] [place] [address] Phone: tel: fax: Referral ID Status Reason Start Date Expiration Date V isits Requested Visits Authorized [id number] Closed Specialty Services Required 03/30/2024 03/30/2025 1 1 Encounter Details Date Type Department Care Team ([facility] st Contact Info) Description 03/30/2024 Orders Only [facility] CHC MED & PEDS [address] [place] [address] Diann Ramirez MD [address] [place] [address] Anxiety (Primary Dx) Social History Tobacco Use [...] [facility] MED & PEDS [address] [place] [address] Naomi Reyes RN 505 [place] [address] 02/15/2025 1:30 PM EDT Office Visit [facility] MED & PEDS [address] [place] [address] Diann Ramirez MD 505 [place] [address] Scheduled Referrals Name Type Priority Associated Diagnoses Order Schedule Referral to Behavioral Health Outpatient Referral Routine Anxiety Expected: 03/30/2024 (Approximate), Expires: 03/30/2025 documented as of this encounter Visit Diagnoses Diagnosis Anxiety- Primary Anxiety state, unspecified documented in this encounter Additional Health Concerns Assessment Noted Time PHQ-9 Depression Total Score: 4 03/20/20 24 9:12 AM EDT documented as of this encounter Care Teams Consultant Technology Relationship Specialty Start Date End Date Diann Ramirez MD [address] [place] [address] PCP - General Internal Medicine 07/16/12 documented as of this encounter
--- OUTSIDE RECORDS SUMMARY | 2024-11-24 12:10 | XMS_ITS | Encounter Summary ---
Author Organization [employer] Address 75 [facility] 7 [place] [address] Care Team Providers Care Chute Puller Name Role Phone Diann Ramirez MD Primary Care Provider +[phone] Reason for Visit * Reason Onset Date Comments Med Refill 09/02/2024 Encounter Details Date Type Department Care Team (Late st Contact Info) Description 09/02/2024 Telephone [facility] MEDICINE [address] [place] [address] Diann Ramirez MD 505 [place] [address] Med Refill Social History Tobacco Use Types [...] 1 MG tablet To be sent to: [facility][id number] - [place] - 1 [facility] [place] [facility] [place] & [facility] documented in this encounter Plan of Treatment Upcoming Encounters Date Type Department Care Team (Late st Contact Info) Description 12/20/2024 2:00 PM EST Telemedicine [facility] MED & PEDS 505 [place] [address] Naomi Reyes RN 505 [place] [address] 02/15/2025 1:30 PM EDT Office Visit [facility] MED & PEDS 505 [place] [address] Diann Ramirez MD 505 [place] [address] documented as of this encounter Visit Diagnoses Not on filedocumented in this encounter Additional Health Concerns Assessment Noted Time PHQ-9 Depression Total Score: 4 03/20/20 24 9:12 AM EDT documented as of this encounter Care Teams Chute Puller Relationship Specialty Start Date End Date Diann Ramirez MD 505 [place] [address] PCP - General Internal Medicine 07/16/12 documented as of this encounter
--- OUTSIDE RECORDS SUMMARY | 2024-11-24 12:10 | XMS_ITS | Encounter Summary ---
Author Organization [employer] Address [address] [facility] [address] [address] 7[address] [place] [address] Care Team Providers Care Program Trainer Name Role Phone Diann Ramirez MD Primary Care Provider +1 [phone] Encounter Details Date Type Department Care Team [...] [facility] [address] [place] [address] Naomi Reyes RN 505 [place] [address] 02/15/2025 1:30 PM EDT Office Visit [facility] [address] [place] [address] Diann Ramirez MD 505 [place] [address] documented as of this encounter Visit Diagnoses Not on filedocumented in this encounter Additional Health Concerns Assessment Noted Time PHQ-9 Depression Total Score: 4 03/20/20 24 9:12 AM EDT documented as of this encounter Care Teams Program Trainer Relationship Specialty Start Date End Date Diann Ramirez MD [address] [place] [address] PCP - General Internal Medicine 07/16/12 documented as of this encounter
--- OUTSIDE RECORDS SUMMARY | 2024-11-24 12:10 | XMS_ITS | Encounter Summary ---
Author Organization [employer] Address 75 [facility] 7 [place] [address] Care Team Providers Care Motion Picture Projectionist Apprentice Name Role Phone Diann Ramirez MD Primary Care Provider +1 [phone] Reason for Visit * Reason Onset Date Comments Med Refill 10/25/2022 Encounter Details Date Type Department Care Team (Late st Contact Info) Description 10/25/2022 Telephone [facility] MEDICINE [address] [place], [place] [phone] Diann Ramirez MD 505 [place], [place] [phone] Med Refill Social History Tobacco Use Types [...] for lorazepam 1 mg. Please contact at [phone] documented in this encounter Plan of Treatment Upcoming Encounters Date Type Department Care Team (Late st Contact Info) Description 12/20/2024 2:00 PM EST Telemedicine [facility] MED & PEDS 505 [place] [address] Naomi Reyes RN 505 [place] [address] 02/15/2025 1:30 PM EDT Office Visit [facility] 505 [place] [address] Diann Ramirez MD 505 [place] [address] documented as of this encounter Visit Diagnoses Not on filedocumented in this encounter Care Teams Motion Picture Projectionist Apprentice Relationship Specialty Start Date End Date Diann Ramirez MD 505 [place] [address] PCP - General Internal Medicine 07/16/12 documented as of this encounter
--- OUTSIDE RECORDS SUMMARY | 2024-11-24 12:10 | XMS_ITS | Encounter Summary ---
Author Organization [employer] Address 75 [facility] 7 [place] [address] Care Team Providers Care Wire Threader Name Role Phone Diann Ramirez MD Primary Care Provider +1 [phone] Reason for Visit * Reason Onset Date Comments Referral 11/21/2022 Encounter Details Date Type Department Care Team (Late st Contact Info) Description 11/21/2022 Telephone [facility] MEDICINE [address] [place] [address] Diann Ramirez MD 505 [place] [address] Referral Social History Tobacco Use Types Packs/Day [...] by Dr Linton Please contact pt at [phone] Please see above message. Thanks * Telephone Encounter - Mario Tavaresos - 11/21/2022 2:42 PM EST Tc from pt requesting a new referral for neurologist states don't want to be seen by Dr Linton Please contact pt at [phone] documented in this encounter Plan of Treatment Upcoming Encounters Date Type Department Care Team (Late st Contact Info) Description 12/20/2024 2:00 PM EST Telemedicine [facility] 505 [place] [address] Naomi Reyes RN [address] [place] [address] 02/15/2025 1:30 PM EDT Office Visit [facility] [address] [place] [address] Diann Ramirez MD 505 [place] [address] documented as of this encounter Visit Diagnoses Diagnosis Chronic cluster headache, not intractable- Primary documented in this encounter Additional Health Concerns Assessment Noted Time PHQ-9 Depression Total Score: 1 10/31/19 23 3:59 PM EST documented as of this encounter Care Teams Wire Threader Relationship Specialty Start Date End Date Diann Ramirez MD 505 [place] [address] PCP - General Internal Medicine 07/16/12 documented as of this encounter
--- OUTSIDE RECORDS SUMMARY | 2024-11-24 12:10 | XMS_ITS | Clinical Summary ---
Author Organization [employer] [facility] ity Address [address] [place] [address] Care Team Providers Care Claim Analyst Name Role Phone Unavailable Primary Care Provider [...]
--- OUTSIDE RECORDS SUMMARY | 2024-11-24 12:10 | XMS_ITS | Encounter Summary ---
Author Organization [employer] Address 75 [facility] 7 [place] [address] Care Team Providers Care Aoc Plans Intelligence Officer Name Role Phone Diann Ramirez MD Primary Care Provider +1 [phone] Reason for Visit * Reason Onset Date Comments Med Refill 11/25/2022 Encounter Details Date Type Department Care Team (Late st Contact Info) Description 11/25/2022 Telephone [facility] MEDICINE [address] [place] [address] Diann Ramirez MD 505 [place] [address] Med Refill Social History Tobacco Use Types [...] Description 12/20/2024 2:00 PM EST Telemedicine [facility] MED & PEDS [address] [place] [address] Naomi Reyes RN 505 [place] [address] 02/15/2025 1:30 PM EDT Office Visit [facility] MED & PEDS [address] [place] [address] Diann Ramirez MD 505 [place] [address] documented as of this encounter Visit Diagnoses Not on filedocumented in this encounter Additional Health Concerns Assessment Noted Time PHQ-9 Depression Total Score: 1 10/31/19 23 3:59 PM EST documented as of this encounter Care Teams Aoc Plans Intelligence Officer Relationship Specialty Start Date End Date Diann Ramirez MD 505 [place] [address] PCP - General Internal Medicine 07/16/12 documented as of this encounter
--- OUTSIDE RECORDS SUMMARY | 2024-11-24 12:10 | XMS_ITS | Encounter Summary ---
Author Organization [employer] Address 75 [facility] 7 [place] [address] Care Team Providers Care Access Spec Name Role Phone Diann Ramirez MD Primary Care Provider +1 [phone] Reason for Visit * Reason Onset Date Comments Appointment Request 04/28/2024 Encounter Details Date Type Department Care Team (Late st Contact Info) Description 04/28/2024 Telephone [facility] MEDICINE [address] [place] [address] Diann Ramirez MD 505 [place] [address] Appointment Request Social History Tobacco Use Types [...] won't be able to make it today's ETHICS INSTRUCTOR visit due to not feeling well and is requesting to reschedule. Please contact pt at [phone]. documented in this encounter Plan of Treatment Upcoming Encounters Date Type Department Care Team (Late st Contact Info) Description 12/20/2024 2:00 PM EST Telemedicine [facility] MED & PEDS 505 [place] [address] Naomi Reyes, RN [address] [place] [address] 02/15/2025 1:30 PM EDT Office Visit [facility] MED & PEDS [address] [place] [address] Diann Ramirez MD 505 [place] [address] documented as of this encounter Visit Diagnoses Not on filedocumented in this encounter Additional Health Concerns Assessment Noted Time PHQ-9 Depression Total Score: 4 03/20/20 24 9:12 AM EDT documented as of this encounter Care Teams Access Spec Relationship Specialty Start Date End Date Diann Ramirez MD 505 [place] [address] PCP - General Internal Medicine 07/16/12 documented as of this encounter
--- OUTSIDE RECORDS SUMMARY | 2024-11-24 12:10 | XMS_ITS | Encounter Summary ---
Author Organization [employer] Address 75 [facility] 7 [place] [address] Care Team Providers Care Draw Frame Operator Name Role Phone Diann Ramirez MD Primary Care Provider +1 [phone] Reason for Visit * Reason Comments Hypertension Encounter Details Date Type Department Care Team ([facility] st Contact Info) Description 11/15/2024 9:15 AM EST Office Visit [facility] PEDS [address] [place], [place] [phone] Diann Ramirez MD 505 [place] [address] Primary hypertension (Primary Dx); Other closed fracture of distal end of left fibula, initial encounter; Dietary counseling; Exercise counseling; Class 2 severe obesity due to excess calories with serious comorbidity and body mass index (BMI) of 35.0 to 35.9 in adult ([facility]) Social History Tobacco Use Types Packs/Day [...] index (BMI) of35.0 to 35.9 in adult ([facility]) Discussed calorie deficit, recommended reduction of 20-30% of maintenance calories; sr. director product management referral offered. Recommended to decrease soda and [...] [facility] [address] [place] [address] Naomi Reyes, TABATHA 505 [place] [address] 02/15/2025 1:30 PM EDT Office Visit [facility] MED & PEDS [address] [place] [address] Diann Ramirez MD 505 [place] [address] documented as of this encounter Visit Diagnoses Diagnosis Primary hypertension- Primary Unspecified essential hypertension Other closed fracture of distal end of left fibula, initial encounter Dietary counseling Dietary surveillance and counseling Exercise counseling Class 2 severe obesity due to excess calories with serious comorbidity and body mass index (BMI) of 35.0 to 35.9 in adult ([facility]) documented in this encounter Additional Health Concerns Assessment Noted Time PHQ-9 Depression Total Score: 4 03/20/20 24 9:12 AM EDT documented as of this encounter Care Teams Draw Frame Operator Relationship Specialty Start Date End Date Diann Ramirez MD 505 [place] [address] PCP - General Internal Medicine 9/27/12 documented as of this encounter
--- OUTSIDE RECORDS SUMMARY | 2024-11-24 12:10 | XMS_ITS | Clinical Summary ---
Author Organization [employer] Address 75 [facility] 7t [place] [address] Care Team Providers Care Diesel Engine Mechanic Apprentice Name Role Phone Diann Ramirez MD Primary Care Provider [phone] Allergies Active Allergy Reactions Criticality Noted Date [...] 23 Active ergocalciferol (Vitamin D2) 1.25 MG (18731 UT) capsuleIndicati ons:Vitamin D deficiency Take 1 [...] and protective factors. Referral placed sent to [facility] on 07/21 for OP services. Provided information [...] intervention , [facility], Patient to engage in [...] and protective factors. Referral placed sent to [facility] on 07/21 for OP services. Provided information [...] intervention , [facility], Patient to engage in [...] organization. Date Type Department Care Team Description 11/24/2024 Refill [facility] MEDICINE [address] [place] [address] Diann Ramirez MD Anxiety 11/15/2024 9:15 AM EST Office Visit [facility] MED & PEDS 505 [place] [address] Diann Ramirez MD Primary hypertension (Primary Dx); Other closed fracture of distal end of left fibula, initial encounter; Dietary counseling; Exercise counseling; Class 2 severe obesity due to excess calories with serious comorbidity and body mass index (BMI) of 35.0 to 35.9 in adult ([facility]) 11/15/2024 Travel 11/11/2024 Orders Only [facility] External Provider, [facility] 10/27/2024 Refill [facility] MED & PEDS [address] [place] [address] Diann Ramirez MD Anxiety 10/01/2024 Telephone [facility] MED & PEDS [address] [place] [address] Diann Ramirez MD Results 10/01/2024 Refill [facility] MEDIC[facility] [address] [place] [address] Diann Ramirez MD Anxiety 10/01/2024 Orders Only [facility] MED & PEDS [address] [place] [address] Diann Ramirez MD Hiatal hernia (Primary Dx) 09/22/2024 9:30 AM EST Clinical Support [facility] MED & PEDS [address] [place] [address] Naomi Reyes, TABATHA Anxiety 09/22/2024 Telephone [facility] MED & PEDS [address] [place] [address] Naomi Reyes, RN 09/22/2024 Travel 09/02/2024 Refill [facility] MED & PEDS [address] [place] [address] Naomi Reyes, RN Anxiety 09/02/2024 Telephone [facility] MEDICINE [address] [place] [address] Diann Ramirez MD Med Refill from Last [...] Info) Description 12/20/2024 2:00 PM EST Telemedicine [facility] MED & PEDS [address] [place] [address] Naomi Reyes, TABATHA [address] [place], [place] [phone] 02/15/2025 1:30 PM EDT Office Visit [facility] MED & PEDS [address] [place] [address] Diann Ramirez MD 505 [place] [address] Health Maintenance Due Date Last Done Comments [...] Surgeons ? [address] ?[place], [place] [address] ?XRay Report ? Signed ? Patient: Stopa,Luc J ?MR#: [id number] ?? 78 ? : 1980 ?Acct:[id number] ? Age/Sex: 44 / M ?ADM Date: 11/15/24 ? Loc: HO.HOSX ? Attending Dr: Shreya Whelan PA-C ? Ordering Physician: Shreya Whelan PA-C ?? Date of Service: 11/15/24 ?? Procedure(s): XR ankle LT min 3V ?? Accession Number(s): [id number] ? cc: Diann Ramirez MD; Shreya Whelan [...] DD/ 1317 ? TD/TT: 11/15/24 1320 ? Topper Press Operator: ? Procedure Note Colt Avendaño - 11/15/2024 [facility] [address] [place] [address] [address] [place] [address] XRay Report Signed Patient: Luc Erickson JMR#: [id number] [birth year] : 1980Acct:[id number] Age/Sex: 44 / MADM Date: 11/15/24 Loc: HOCORETTAX Attending Dr: Shreya Whelan PA-C Ordering Physician: Shreya Whelan PA-C Date of Service: 11/15/24 Procedure(s): XR ankle LT min 3V Accession Number(s): [id number] cc: Diann Ramirez MD; Shreya Whelan PA-C [...] 11/15/24 1527 DD/ 1317 TD/TT: 11/15/24 1320 Topper Press Operator: [facility] External Provider IMG XR PROCEDURES Final Result * XR Tibia Fibula 2 Views Left (11/11/2024 10:45 AM EST) Anatomical Region Laterality Modality Lower Extremities, Lower Leg Left Rad iographic Imaging 11/11/2024 10:4 5 AM EST Narrative 11/11/2024 11:32 AM EST ? [facility] ?[address] ?[place] [address] ?XRay Report ? Signed ? Patient: Stopa,Luc J ?MR#: [id number] ?? 78 ? : 1980 ?Acct:[id number] ? Age/Sex: 44 / M ?ADM Date: 01/23/25 ? Loc: HO.ED ? Attending Dr: ? Ordering Physician: Generic ED Physician ?? Date of Service: 11/11/24 ?? Procedure(s): XR tibia fibula LT 2V ?? Accession Number(s): [id number] ? cc: Diann Ramirez MD; Generic ED [...] DD/ 1045 ? TD/TT: 11/11/24 1100 ? Topper Press Operator: MSM ? Procedure Note Donoracioter, Image - 11/11/2024 [place] [address] XRay Report Signed Patient: Luc Erickson JMR#: [id number] [birth year] : 1980Acct:[id number] Age/Sex: 44 / MADM Date: 11/11/24 Loc: HO.ED Attending Dr: Ordering Physician: Generic ED Physician Date of Service: 11/11/24 Procedure(s): XR tibia fibula LT 2V Accession Number(s): [id number] cc: Diann Ramirez MD; Generic ED Physician [...] 11/11/24 1129 DD/ 1045 TD/TT: 11/11/24 1100 Topper Press Operator: MSM us [facility] External Provider IMG XR PROCEDURES Final Result * FL Esophagus Barium Swallow (09/30/2024 8:33 AM EST) Anatomical Region Laterality Modality Head, Neck Radiographic Lacey ging 09/30/2024 8:33 AM EST Narrative 09/30/2024 4:36 PM EST ? [facility] ?[address] ?[place] [address] ? Fluoroscopy Report ? Signed ? Patient: Stopa,Luc J ?MR#: [id number] ?? 78 ? : 1980 ?Acct:[id number] ? Age/Sex: 44 / M ?ADM Date: 09/30/24 ? Loc: HO.XRAY ? Attending Dr: Diann Ramirez MD ? Ordering Physician: Diann Ramirez MD ?? Date of Service: 09/30/24 ?? Procedure(s): FL barium swallow ?? Accession Number(s): [id number] ? cc: Diann Ramirez MD ? EXAMINATION: [...] DD/ 0833 ? TD/TT: 09/30/24 0904 ? Topper Press Operator: ? Procedure Note Kateryna, Image - 10/01/[address] [address] Fluoroscopy Report Signed Patient: Luc Erickson JMR#: [id number] [birth year] : 1980Acct:[id number] Age/Sex: 44 / MADM Date: 09/30/24 Loc: HO.XRAY Attending Dr: Diann Ramirez MD Ordering Physician: Diann Ramirez MD Date of Service: 09/30/24 Procedure(s): FL barium swallow Accession Number(s): [id number] cc: Diann Ramirez MD EXAMINATION: XR FLUOROSCOPY [...] Ruiz MD 09/30/2024 04:33 PM EST RP Workstation: [id number] Dictated By: Perfecto Babb Signed By: <Electronically signed by Perfecto Babb in OV> 09/30/24 1633 <Electronically signed by Carter Ruiz MD in OV> 09/30/24 1636 DD/ 0833 TD/TT: 09/30/24 0904 Topper Press Operator: us Diann Ramirez MD IMG FLUOROSCOPY PROCEDURES Edited Result - Final * POCT COLLIN-14 Urine Drug Screen (09/22/2024 9:58 AM EST) Benzodiazepines Screen, Urine Positive Buprenophine Screen, Urine Positive Urine Urine specimen obtained by clean catch procedure / Unknown 09/22/2024 9:58 AM EST Narrative Naomi Reyes RN - 09/22/2024 9:58 AM EST Lot# [id number] Exp: 09-25-25 us Diann Ramirez MD POINT OF CARE TEST ENTER/ED IT ORDERABLES Final Result * (ABNORMAL) Lipid Panel, Standard (03/11/2024 1:07 PM EDT) Triglycerides 40 <150 mg/dL [facility] Comment:Desirable Triglyceri de: less than 150 mg/dLBorderline High Triglyceride 150-199 mg/dLHigh Triglyceride: 200-499 mg/dLVery High Triglyceride: greater than or equal to 5OO mg/dL Cholesterol 141 <200 mg/dL [facility] Comment:Desirable Cholestero l: less than 200 mg/dLBorderline High Cholesterol: 200-239 mg/dLHigh Cholesterol: greater than 239 mg/dL LDL Cholesterol Calculated 93 <100 mg/dL [facility] Comment:Desirable LDL: less than 100 mg/dLNear Optimal/Above Optimal LDL: 110- 129 mg/dLBorderline High LDL: 130-159 mg/dLHigh LDL: 160-189 mg/dLVery High LDL: greater than or equal to 190 mg/dL HDL Cholesterol 40(L) >40 mg/dL [facility] Comment:Desirable HDL: great er than 40 mg/dL Note: This HDL assay may give artificially low results in patients with liver disease. Blood Venous blood specimen / Unknown 03/11/2024 1:07 PM EDT 03/11/2024 2:22 PM EDT us Diann Ramirez MD LAB BLOOD ORDERABLES Final Result Performing Organization Address City/[facility]/ZIP Co de Phone Number [facility] [address] [place] [phone] * HIV AB/AG (08/07/2022 2:03 PM EDT) [facility] HIV AB/AG Nonreactive Nonreactive [facility] Comment: HIV-1 p24 Ag and/or HIV-1/HIV-2 [...] detection of this assay. ?? [facility] Manager HIV Ag/Ab Combo assay result and supplemental assay results should be interpreted in conjunction with the patient's clinical presentation, history and other laboratory results. ??If the results are inconsistent with clinical evidence, additional testing is suggested to confirm the result. 08/07/2022 2:03 PM EDT us Tra Linton MD HISTORICAL/NON ORDERAB LE LABS Final Result [facility] * HEPATITIS C AB W/REFL TO [...] a test for HCV RNA (test code 81551) is suggested. ?? For additional information please refer to http://[email or web address].Heverest.ru/faq/[email or web address] (This link is being provided for informational/ educational purposes only.) ?? 07/01/2022 10:1 3 AM EDT us Diann Ramirez MD HISTORICAL/NON ORDERABLE PUMA JAMESON Final Result [facility] [place] [address], from Last 3 Months or Most Recently Relevant to Health Maintenance Insurance Care Teams Diesel Engine Mechanic Apprentice Relationship Specialty Start Date End Date Diann Ramirez MD [address] [place] [address] [place] [address] PCP - General Internal Medicine 07/16/12
--- OUTSIDE RECORDS SUMMARY | 2024-11-24 12:10 | XMS_ITS | Encounter Summary ---
Author Organization [employer] Address 75 [facility] 7 [place] [address] Care Team Providers Care Chilling Hood Operator Name Role Phone Diann Ramirez MD Primary Care Provider +1- [phone] Reason for Visit * Reason Onset Date Comments Appointment Request 01/13/2024 Encounter Details Date Type Department Care Team (Late st Contact Info) Description 01/13/2024 Telephone [facility] MEDICINE [address] [place] [address] Diann Ramirez MD [address] [place] [address] Appointment Request Social History Tobacco Use Types [...] EST Telemedicine [facility] & PEDS [address] [place] [address] Naomi Reyes, TABATHA 505 [place] [address] 02/15/2025 1:30 PM EDT Office Visit [facility] PED[facility] [address] [place] [address] Diann Ramirez MD [address] [place] [address] documented as of this encounter Visit Diagnoses Not on filedocumented in this encounter Additional Health Concerns Assessment Noted Time PHQ-9 Depression Total Score: 1 10/31/19 23 3:59 PM EST documented as of this encounter Care Teams Chilling Hood Operator Relationship Specialty Start Date End Date Diann Ramirez MD [address] [place] [address] PCP - General Internal Medicine 07/16/12 documented as of this encounter
--- OUTSIDE RECORDS SUMMARY | 2024-11-24 12:10 | XMS_ITS | Encounter Summary ---
Author Organization [employer] Address [address] [place] [address] [address] [place] [address] Care Team Providers Care Commercial Sales Specialist Name Role Phone Diann Ramirez MD Primary Care Provider [phone] Reason for Referral * Consultation (Routine) - Closed Specialty Diagnoses / Procedures Referred By Dania blackman Referred To Contact Hematology and Oncology Diagnoses Microcytic anemia Bicytopenia Diann Ramirez MD [address] [place] [address] Phone: tel: fax: Cornell Culver MD [address] [place] [phone] Phone: tel: fax: Referral ID Status Reason Start Date Expiration Date V isits Requested Visits Authorized [id number] Closed Specialty Services Required 03/16/2024 03/16/2025 1 1 * Imaging (Routine) - Closed Specialty Diagnoses / Procedures Referred By Contcary t Referred To Contact Diagnoses Numbness of right foot Numbness of left foot Procedures EMG Diann Ramirez MD [address] [place] [address] Phone: tel: fax: [address] Phone: tel: fax: Referral ID Status Reason Start Date Expiration Date Visits Re quested Visits Authorized [id number] Closed 03/16/2024 03/16/2025 1 1 Encounter Details Date Type Department Care Team (Late Contact Info) Description 03/12/2024 Orders Only [facility] [address] [place] [address] Diann Ramirez MD [address] [place] [address] Microcytic anemia (Primary Dx); Vitamin D deficiency; [...] [facility] [address] [place] [address] Naomi Reyes, RN [address] [place] [address] 02/15/2025 1:30 PM EDT Office Visit [facility] [address] [place] [address] Diann Ramirez MD [address] [place] [address] Scheduled Orders Name Type Priority Associated Diagnoses [...] EDT Narrative 03/24/2024 3:35 PM EDT ? [facility] ?[address] ?[place] [address] ? CT Scan Report ? Signed ? Patient: Stopa,Luc J ?MR#: [id number] ?? 78 ? : 1980 ?Acct:[id number] ? Age/Sex: 43 / M ?ADM Date: 03/24/24 ? Loc: HO.ED ? Attending Dr: ? Ordering Physician: Phani Gamino DO ?? Date of Service: 03/24/24 ?? Procedure(s): CT head/brain wo IV con ?? Accession Number(s): [id number] ? cc: Diann Ramirez MD; Phani Gamino [...] 1531 ? DD/ 1423 ? TD/TT: ? Implementation Advisor: CARMEN ? Procedure Note Donotuseinterpreter, Image - 03/24/[address] [address] [address] Scan Report Signed Patient: Luc Erickson JMR#: [id number] [birth year] : 1980Acct:[id number] Age/Sex: 43 / MADM Date: 03/24/24 Loc: HO.ED Attending Dr: Ordering Physician: Phani Gamino DO Date of Service: 03/24/24 Procedure(s): CT head/brain wo IV con Accession Number(s): [id number] cc: Diann Ramirez MD; Phani Gamino DO [...] in OV> 03/24/24 1531 DD/ 1423 TD/TT: Implementation Advisor: CARMEN [employer] External Provider IMG CT PROCEDURES Final Result * XR Chest 2 Views (03/24/2024 2:00 PM EDT) Anatomical Region Laterality Modality Chest Radiographic Lacey ging 03/24/2024 2:00 PM EDT Narrative 03/24/2024 3:11 PM EDT ? [facility] ?[address] ?[place] [address] ?XRay Report ? Signed ? Patient: Hiral Ericksonhan J ?MR#: [id number] ?? 78 ? : 1980 ?Acct:[id number] ? Age/Sex: 43 / M ?ADM Date: 03/24/24 ? Loc: HO.ED ? Attending Dr: ? Ordering Physician: Phani Gamino DO ?? Date of Service: 03/24/24 ?? Procedure(s): XR chest 2V ?? Accession Number(s): [id number] ? cc: Diann Ramirez MD; Phani Gamino [...] 1507 ? DD/ 1400 ? TD/TT: ? Implementation Advisor: ? Procedure Note Colt Avendaño - 03/24/2024 [facility] [address] [facility] [address] XRay Report Signed Patient: Luc Erickson JMR#: [id number] [birth year] : 1980Acct:[id number] Age/Sex: 43 / MADM Date: 03/24/24 Loc: HO.ED Attending Dr: Ordering Physician: Phani Gamino DO Date of Service: 03/24/24 Procedure(s): XR chest 2V Accession Number(s): [id number] cc: Diann Ramirez MD; Phani Gamino DO [...] in OV> 03/24/24 1507 DD/ 1400 TD/TT: Implementation Advisor: [employer] External Provider IMG XR PROCEDURES Final Result * Tick-borne Disease, Acute Molecular Panel (03/24/2024 12:15 PM EDT) Babesia microti DNA, Real Time PCR NOT DETECTED NOT DETECTED [facility] Comment:This test was develo ped and its analytical performancecharacteristics have been determined by [employer]. It has not been cleared or approved by theFDA. This assay has been validated pursuant to the CLIAregulations and is used for clinical purposes.THIS TEST WAS PERFORMED AT:[facility] [place] [id number] MEMBRENO MD Ehrlichia chaffensis DNA Real Time PCR NOT DETECTED NOT DETECTED [facility] Comment:This test was develo ped and its analytical performancecharacteristics have been determined by [employer]. It has not been cleared or approved by theFDA. This assay has been validated pursuant to the CLIAregulations and is used for clinical purposes.THIS TEST WAS PERFORMED AT:[facility] [address] [phone] MEMBRENO MD Anaplasma phagocytophilum DNA, QL Real Time PCR NOT DETECTED NOT DETECTED [facility] Comment:This test was develo ped and its analytical performancecharacteristics have been determined by [employer]. It has not been cleared or approved by theFDA. This assay has been validated pursuant to the CLIAregulations and is used for clinical purposes. Borrelia Species DNA, Ql Real Time PCR NOT DETECTED NOT DETECTED [facility] Comment:This test was develo ped and its analytical performancecharacteristics have been determined by [employer]. It has not been cleared or approved by theFDA. This assay has been validated pursuant to the CLIAregulations and is used for clinical purposes.For additional information, please refer [email or web address](This link is being provided for informational/educational purposes only.)THIS TEST WAS PERFORMED AT:[facility] [address] [phone] MEMBRENO MD Borrelia Miyamotoi DNA, Ql Real Time PCR NOT DETECTED NOT DETECTED [facility] Comment:This test detects bu t does not distinguish betweenB. miyamotoi and B. hermsii.This test was developed and its analytical performancecharacteristics have been determined by [employer]. It has not been cleared or approved by theFDA. This assay has been validated pursuant to the CLIAregulations and is used for clinical purposes.THIS TEST WAS PERFORMED AT:[facility] [address] [phone] MEMBRENO MD Comment SEE NOTE [facility] Comment:A negative result do es not exclude Borrelia infectionas the concentration of the organism in blood may be lowor non-existent in patients with Lyme disease, and maydepend on timing of specimen collection from onset ofsymptoms. Clinical correlation is recommended andadditional studies such as serologic testing may beindicated.THIS TEST WAS PERFORMED AT:[facility] [address] [phone] MEMBRENO MD 03/24/2024 12:1 5 PM EDT 03/24/2024 12:19 PM EDT Generic External Data Provider LAB BLOOD ORDERAB LES Final Result Performing Organization Address [facility] Co de Phone Number [facility] [address] [place] [phone] * Slide Review (03/24/2024 12:15 PM EDT) Slide Review VERIFIED [facility] 03/24/2024 12:1 5 PM EDT 03/24/2024 12:19 PM EDT us Generic External Data Provider LAB BLOOD ORDERAB LES Final Result Performing Organization Address [facility] Phone Number [facility] [address] [place] [phone] * (ABNORMAL) CBC auto differential (03/24/2024 12:15 PM EDT) White Blood Count 8.3 4.8 - 10.8 X10*3/uL [facility] Red Blood Count 4.86 4.60 - 5.80 X10*6/uL [facility] Hemoglobin 14.0 14.0 - 18.0 g/dl [facility] Hematocrit 41.0(L) 42.0 - 52.0 % [facility] Mean Corpuscular Volume 84.4 80.0 - 98.0 fL [facility] Mean Corpuscular Hemoglobin 28.8 27.0 - 33.0 pg [facility] Mean Corpuscular HGB Conc 34.1 31.0 - 36.0 g/dl [facility] Red Cell Distribution Width 12.2 11.0 - 16.0 % [facility] Platelet Count 122(L) 160 - 400 X10*3/uL [facility] Comment:Confirmed by smear. Mean Platelet Volume 10.8 9.4 - 12.4 fL [facility] Neutrophils Percent Auto 62.4 45 - 73 % [facility] Imm Gran Pct Auto 0.7(H) 0.0 - 0.4 % [facility] Lymphocytes Percent Auto 27.4 20 - 40 % [facility] Monocytes Percent Auto 5.6 2 - 11 % [facility] Eosinophils Percent Auto 3.3 0 - 4 % [facility] Basophils Percent Auto 0.6 0 - 2 % [facility] NRBC Pct Auto 0.0 0.0 - 0.2 /100WBC [facility] Neutrophils Absolute Auto 5.2 2.0 - 8.3 x10*3/uL [facility] Imm Gran Abs Auto 0.06(H) 0.00 - 0.03 X10*3/uL [facility] Lymphocytes Absolute Auto 2.3 1.2 - 4.9 X10*3/uL [facility] Monocytes Absolute Auto 0.5 0.1 - 1.2 X10*3/uL [facility] Eosinophils Absolute Auto 0.3 0.0 - 0.4 X10*3/uL [facility] Basophils Absolute Auto 0.1 0.0 - 0.2 X10*3/uL [facility] NRBC Abs Auto 0.000 0.0 - 0.012 X10*3/uL [facility] 03/24/2024 12:1 5 PM EDT 03/24/2024 12:19 PM EDT us Generic External Data Provider LAB BLOOD ORDERAB LES Edited Result - Final [facility] [address] [place] [address] [phone] * TSH with Reflex to Free T4 (03/24/2024 12:15 PM EDT) TSH reflex Free T4 1.53 0.32 - 4.0 uIU/mL [facility] 03/24/2024 12:1 5 PM EDT 03/24/2024 12:19 PM EDT Generic External Data Provider LAB BLOOD ORDERAB LES Final Result Performing Organization Address [facility]/ZIP Co de Phone Number [facility] [address] [place] [phone] * Ferritin (03/24/2024 12:15 PM EDT) Ferritin 109 20 - 250 ng/mL [facility] 03/24/2024 12:1 5 PM EDT 03/24/2024 12:19 PM EDT Generic External Data Provider LAB BLOOD ORDERAB LES Final Result Performing Organization Address [facility] Co de Phone Number [facility] [address] [place] [phone] * High Sensitivity Troponin I (03/24/2024 12:15 PM EDT) TROPONIN I HIGH SENSITIVITY <2.7 <3.5 - 35.0 ng/L [facility] Comment:The Cha high sens itivity Troponin-I results should beused in conjunction with other diagnostic information suchas ECG, clinical observations and information, and patientsymptoms to aid in the diagnosis of CT. 03/24/2024 12:1 5 PM EDT 03/24/2024 12:19 PM EDT Generic External Data Provider LAB BLOOD ORDERAB LES Final Result Performing Organization Address [facility] Co de Phone Number [facility] [address] [place] [phone] * Magnesium (03/24/2024 12:15 PM EDT) Magnesium 1.9 1.6 - 2.6 mg/dL [facility] 03/24/2024 12:1 5 PM EDT 03/24/2024 12:19 PM EDT us Generic External Data Provider LAB BLOOD ORDERAB LES Final Result [facility] [address] [place] [phone] * (ABNORMAL) Comprehensive Metabolic Panel (03/24/2024 12:15 PM EDT) Sodium 140 135 - 145 mmol/L [facility] Potassium 3.6 3.3 - 5.1 mmol/L [facility] Chloride 106 96 - 108 mmol/L [facility] Carbon Dioxide 27 22 - 29 mmol/L [facility] Anion Gap 11(L) 12 - 20 [facility] Urea Nitrogen (BUN) 8(L) 9 - 16 mg/dL [facility] Creatinine, Serum 0.84 0.5 - 1.4 mg/dL [facility] Creatinine Clr Calc Pharmacy 145.2 [facility] Comment:eGFR (calculated fro m the MDRD study equation) and eCrCl(calculated from the Cockcroft-Gault equation) are based ondifferent parameters and may not yield comparable results.If eCrCl result is absurd, please check patient'sheight/weight. Estimated Glomerular Filt Rate >60 [facility] Comment:NOTE: For -Am erican individuals, multiply the result by 1.210.Chronic Kidney Disease: Estimated GFR < 60 mL/min/1.06q0Zciytu Kidney Disease: Estimated GFR < 15 mL/min/1.73m2 Glucose 113 60 - 115 mg/dL [facility] Calcium 9.3 8.4 - 10.2 mg/dL [facility] Bilirubin, Total 0.3 0.0 - 1.0 mg/dL [facility] Aspartate Amino Transferase 15 5 - 37 U/L [facility] Alanine Aminotransferase 13 0 - 40 U/L [facility] Total Protein 7.5 6.5 - 8.0 g/dL [facility] Albumin Level 4.3 3.5 - 5.0 g/dL [facility] Alkaline Phosphatase 79 39 - 117 U/L [facility] 03/24/2024 12:1 5 PM EDT 03/24/2024 12:19 PM EDT Generic External Data Provider LAB BLOOD ORDERAB LES Final Result Performing Organization Address [facility] Co de Phone Number [facility] [address] [place] [phone] * Prothrombin Time-INR (03/24/2024 12:15 PM EDT) Prothrombin Time 12.4 11.1 - 13.3 SEC [facility] INTERNATIONAL NORM RATIO 1.0 0.9 - 1.1 [facility] Comment:INTERNATIONAL NORMAL IZED RATIO (INR) [...] ORDERAB LES Final Result Performing Organization Address [facility] de Phone Number [facility] [address] [place] [phone] * (ABNORMAL) Reticulocyte Count (03/16/2024 11:56 AM EDT) Reticulocytes Absolute 0.127(H) 0.026 - 0.095 X10*6/uL [facility] Immature Retic Fraction 15.3(H) 2.3 - 13.4 % [facility] Retic HGB Equivalent 33.6 30.0 - 35.0 pg [facility] Reticulocyte Percent 2.8(H) 0.5 - 1.8 % [facility] Blood Venous blood specimen / Unknown 03/16/2024 11:56 AM EDT 03/16/2024 2:40 PM EDT us Diann Ramirez MD LAB BLOOD ORDERABLES Final Result Performing Organization Address [facility] Co de Phone Number [facility] [address] [place] [phone] * Ferritin (03/16/2024 11:56 AM EDT) Ferritin 118 20 - 250 ng/mL [facility] Blood Venous blood specimen / Unknown 03/16/2024 11:56 AM EDT 03/16/2024 2:42 PM EDT us Diann Ramirez MD LAB BLOOD ORDERABLES Final Result Performing Organization Address [facility] Co de Phone Number [facility] [address] [place] [phone] * Iron And Total Iron Binding Capacity (03/16/2024 11:56 AM EDT) Iron 55 45 - 160 mcg/dL [facility] Total Iron Binding Capacity 261 228 - 428 mcg/dL [facility] Percent Iron Saturation 21 15 - 50 % [facility] Unsaturated Iron Binding 206 ug/dL [facility] Blood Venous blood specimen / Unknown 03/16/2024 11:56 AM EDT 03/16/2024 2:42 PM EDT us Diann Ramirez MD LAB BLOOD ORDERABLES Final Result Performing Organization Address [facility] Co de Phone Number [facility] [address] [place] [phone] documented in this encounter Visit Diagnoses Diagnosis Microcytic anemia- Primary Unspecified iron deficiency anemia Vitamin D deficiency Primary hypertension Unspecified essential hypertension Numbness of right foot Numbness of left foot Bicytopenia documented in this encounter Additional Health Concerns Assessment Noted Time PHQ-9 Depression Total Score: 1 10/31/19 23 3:59 PM EST documented as of this encounter Care Teams Commercial Sales Specialist Relationship Specialty Start Date End Date Diann Ramirez MD [address] [place] [address] PCP - General Internal Medicine 07/16/12 documented as of this encounter
--- NOTE | 2024-11-24 13:30 | MHC.SHP ---
Pre-Procedural Eval Section A - 24 Hr Update-Section A only Date of Service: 11/24/24 The patient is an INPATIENT: No Changes since office visit: No Cold of Flu in the past 2 weeks, No New Medical Problems, No Changes in Medication and No Patient answered all questions The patient has been examined within 24 hours of the surgical procedure. The History & Physical has been completed within 30 days and I have reviewed it.: Yes Section B - Complete if H&P > 30 days Chief Complaint: Other fracture of left lower leg, initial encounte Allergies: Allergies Allergy/AdvReac Type Severity Reaction Status Date / Time No Known Allergies Allergy Verified 11/24/24 11:09 Plan I have reviewed the history and physical and performed a pertinent physical examination on my patient. No changes have occurred unless specified. Time Spent With Patient Time: Total time managing care of this patient today ____ minutes.
--- NOTE | 2024-11-24 15:58 | PM.OP ---
Brief Operative Note Date of Service: 11/24/24 Pre-op diagnosis: right ankle fracture Post-op diagnosis: same Procedure: ORIF lateral malleolus ORIF syndesmosis Implants: Pangea 5 hole plate and kang medical syndesmosis CinchFix x 1 Surgeon: Will Randolph MD Anesthesia: GLMA and regional Was an On Call Pharmacy Technician used for this Procedure?: Yes On Call Pharmacy Technician: Anna Bennett Estimated blood loss (mL): 25 Tourniquet time (min): 60 IV fluids (mL): 1,000 Pathology: none sent Condition: stable Disposition: PACU
[2024-11-24 16:01] VITALS: BP 128/71; PULSE 77; RESP 16; TEMP 36.7; O2SAT 95
[2024-11-24 16:06] VITALS: BP 129/79; PULSE 74; RESP 16; O2SAT 95
[2024-11-24 16:11] VITALS: BP 126/83; PULSE 73; RESP 16; O2SAT 95
--- NOTE | 2024-11-24 16:11 | P.OP_ITS ---
Operative Note Operative Note Date of Service: 11/24/24 Narrative: Date of Service: 11/24/24 Pre-op diagnosis: right ankle fracture Post-op diagnosis: same Procedure: ORIF lateral malleolus ORIF syndesmosis Implants: Pangea 5 hole plate and kang medical syndesmosis CinchFix x 1 Surgeon: Will Randolph MD Anesthesia: GLMA and regional Was an Documentation Billing Clerk used for this Procedure?: Yes Documentation Billing Clerk: Anna Bennett Estimated blood loss (mL): 25 Tourniquet time (min): 60 IV fluids (mL): 1,000 Pathology: none sent Condition: stable Disposition: PACU Procedure in detail: Patient was brought to the operating room and placed supine on the operative table. All bony prominences were well padded and a time-out was called to identify proper site proper procedure proper surgeon. IV antibiotics per weight were administered. I began by exsanguinating limb is slightly tourniquet to 300 mm Hg. I then made a standard posterolateral incision over the fibula. Full- thickness flaps were taken down to the fibular shaft and distal fibula. The fracture was identified and cleaned with a combination of curette, rongeur and irrigation. This was an oblique fracture just distal to the syndesmosis. A lobster claw was used to provisionally reduce the fracture. I placed a lag screw from posterior to anterior perpendicular to the fracture. Standard AO technique was used. A 5 hole distal fibular locking plate was applied using standard AO technique. Biplanar fluoroscopy was used to confirm hardware position and fracture reduction. Once I was satisfied that both of these were acceptable I irrigated copiously and turned my attention to the syndesmosis. An external rotation stress test was used and the results were equivocal. The medial clear space did open and there was no tibofibular overlap but the mortis was grossly congruent. I elected to place a Cinchfix through the plate without syndesmosis compression with a clamp. A guidepin was drilled at the level of the physeal scar from slight posterior to anterior ( ~20deg). I overdrilled the near cortex and then flipped the button on the medial side after a small incision was made. I tightened the Cinch and then perfromed a external rotation stress test again. I was satisfied with the tibiofibular overlap. Therefore all instrumentation was removed and copious irrigation was performed. Absorbable suture and chun were used for closure and the patient was placed into sterile dressings and a well-padded posterior splint. Tourniquet was let down and the patient was extubated brought to recovery room in stable condition there were no known complications.
[2024-11-24 16:16] VITALS: BP 132/74; PULSE 66; RESP 16; O2SAT 96
[2024-11-24 16:31] VITALS: BP 119/64; PULSE 64; RESP 16; TEMP 36.2; O2SAT 96
[2024-11-24] MEDS: oxyCODONE HCl Immed Release 5 MG TABLET PO (16:31)
== END 2024-11-24 16:54 | disposition home or self-care (01) ==
LOC: HO.SSS 10:53
PROVIDERS: PCP Internal Medicine; Visit Provider Orthopaedic Surgery
PROC: (CPT 27792; principal; 2024-11-24 14:00)
DX: S82.892A Other fracture of left lower leg, initial encounter for closed fracture (principal); S80.822A Blister (nonthermal), left lower leg, initial encounter; R20.0 Anesthesia of skin; R20.2 Paresthesia of skin; M25.572 Pain in left ankle and joints of left foot; W00.0XXA Fall on same level due to ice and snow, initial encounter; Y93.01 Activity, walking, marching and hiking; Y92.9 Unspecified place or not applicable; Y99.9 Unspecified external cause status; Z79.891 Long term (current) use of opiate analgesic; Z87.891 Personal history of nicotine dependence
CPT/HCPCS: 27792; 27829; C1713; J0131; J0690; J1100; J1596; J2003; J2250; J2405; J2704; J3010

== ENCOUNTER → 2024-11-24 10:53 | Outpatient (BNV) | payer MEDICAID, SELFPAY | PROVIDERS: PCP Internal Medicine; Visit Provider Orthopaedic Surgery | DX: S82.61XA Displaced fracture of lateral malleolus of right fibula, initial encounter for closed fracture (principal) | CPT/HCPCS: 27792 ==

== ENCOUNTER 2024-11-26 10:59 | Outpatient (AMB) | payer MEDICAID, SELFPAY ==
--- NOTE | 2024-11-26 11:18 | A.OFFVIS_ITS ---
Intake Visit Reasons: PO LT ankle ORIF 11/24/24 NE Intake Note: Luc is a 44 year old male who presents today for a wound check s/p left ankle ORIF 11/24/24 NE. Patient reports he got his splint wet and he fell down. Allergies No Known Allergies Allergy (Verified 11/26/24 11:19) HPI HPI PO LT ankle ORIF 11/24/24 NE: Details: Patient presents to the office today accompanied by his mother for splint change status post left ankle ORIF on 11/24/[address] Randolph. He also states that he also tripped and fell. Additionally, he reports that his splint had gotten wet at some point. 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 No surrounding erythema or drainage. No signs of infection. He does have some small excoriations along the anterior and medial aspect of the davidson from scratching. Able to move all digits. Is able to slightly dorsiflex and plantar flex. Sensation is intact. Pedal pulse intact. Office Procedures Casting/Splints [id number] Leg splint application Procedure code (CPT) selection complete Assessment & Plan Assessment & Plan (1) Closed left ankle fracture: Code(s): S82.892A - Other fracture of left lower leg, initial encounter for closed fracture Category: Medical (2) Status post ORIF of fracture of ankle: Code(s): Z98.890 - Other specified postprocedural states; Z87.81 - Personal history of (healed) traumatic fracture Category: Surgical Plan Mr. Erickson is a 44-year-old male who presents to the office today accompanied by his mother for splint change status post left ankle ORIF on 11/24/[address] Randolph. He also states that he also tripped and fell. Additionally, he reports that his splint had gotten wet at some point. While in the office today, the patient's splint was changed. Xeroform was placed along the incision sites covered with nonstick gauze. Additionally the patient has small abrasions on his skin on the anterior and anterior medial aspect of his davidson. He reports that he feels as though the cotton stockinette was getting stuck on the areas causing irritation and itching. Therefore, we placed Xeroform and a nonstick gauze over these areas as well to help keep them tacked down and not cause any additional irritation. Tony remain in place until 2 weeks postop. All questions were answered to the patient as well as his mother. He will follow up as it is normally scheduled postoperative appointment, sooner if needed. Orders: Orders XR ankle LT min 3V Today M25.579 - Pain in unspecified ankle and joints of unspecified foot Coding Level of Care Code Global (44819) Diagnoses Closed left ankle fracture S82.892A Status post ORIF of fracture of ankle Z98.890; Z87.81 CPT Codes Splint - CPT: 80149-Wmixa Leg splint application ([id number])
--- OUTSIDE RECORDS SUMMARY | 2024-11-26 12:04 | XMS_ITS | Encounter Summary ---
Author Organization [employer] Address 75 [facility] 7t [place] [address] Care Team Providers Care Press Setter Name Role Phone Diann Ramirez MD Primary Care Provider [phone] Encounter Details Date Type Department Care Team (Late st Contact Info) Description 10/01/2024 Orders Only [facility] MED & PEDS [address] [place], [place] [phone] Diann Ramirez MD [address] [place] [address] Hiatal hernia (Primary Dx) Social History Tobacco [...] 12/20/2024 2:00 PM EST Telemedicine [facility] MED & PEDS [address] [place] [address] Naomi Reyes RN 505 [place] [address] 02/15/2025 1:30 PM EDT Office Visit [facility] P[facility] [address] [place] [address] Diann Ramirez MD [address] [place] [address] documented as of this encounter Visit Diagnoses Diagnosis Hiatal hernia- Primary Diaphragmatic hernia without mention of obstruction or gangrene documented in this encounter Additional Health Concerns Assessment Noted Time PHQ-9 Depression Total Score: 4 03/20/20 24 9:12 AM EDT documented as of this encounter Care Teams Press Setter Relationship Specialty Start Date End Date Diann Ramirez MD [address] [place] [address] PCP - General Internal Medicine 07/16/12 documented as of this encounter
--- OUTSIDE RECORDS SUMMARY | 2024-11-26 12:04 | XMS_ITS | Encounter Summary ---
Author Organization [employer] Address 75 [facility] 7 [place] [address] Care Team Providers Care Testing Director Name Role Phone Diann Ramirez MD Primary Care Provider [phone] Reason for Visit * Reason Onset Date Comments Med Refill 10/27/2024 Encounter Details Date Type Department Care Team ([facility] st Contact Info) Description 10/27/2024 Refill [facility] MED & PEDS [address] [place] [address] Diann Ramirez MD [address] [place] [address] Anxiety Social History Tobacco Use Types Packs/Day [...] 1 MG tablet To be sent to: [id number] - [place] - [address] [facility] [place] documented in this encounter Plan of Treatment Upcoming Encounters Date Type Department Care Team (Late st Contact Info) Description 12/20/2024 2:00 PM EST Telemedicine [facility] MED & PEDS [address] [place] [address] Naomi Reyes RN [address] [place] [address] 02/15/2025 1:30 PM EDT Office Visit [facility] MED & PEDS [address] [place] [address] Diann Ramirez MD [address] [place] [address] documented as of this encounter Visit Diagnoses Diagnosis Anxiety Anxiety state, unspecified documented in this encounter Additional Health Concerns Assessment Noted Time PHQ-9 Depression Total Score: 4 03/20/20 24 9:12 AM EDT documented as of this encounter Care Teams Testing Director Relationship Specialty Start Date End Date Diann Ramirez MD [address] [place] [address] PCP - General Internal Medicine 07/16/12 documented as of this encounter
--- OUTSIDE RECORDS SUMMARY | 2024-11-26 12:04 | XMS_ITS | Encounter Summary ---
Author Organization [employer] Address 75 [facility] 7t [place] [address] Care Team Providers Care Doughnut Icer Machine Name Role Phone Diann Ramirez MD Primary Care Provider [phone] Encounter Details Date Type Department Care Team (Late st Contact Info) Description 11/11/2024 Orders Only [facility] External Provider, [facility] Social History Tobacco Use Types Packs/Day [...] [facility] MED & PEDS [address] [place] [address] Naomi Reyes RN 505 [place] [address] 02/15/2025 1:30 PM EDT Office Visit [facility] MED & PEDS [address] [place] [address] Diann Ramirez MD [address] [place] [address] documented as of this encounter Procedures Procedure Name Priority Date/Time Associated Diagnosis Comments XR ANKLE 3+ VIEWS LEFT Routine 11/26/2024 11:03 AM EST FL GUIDANCE IN OR Routine 11/24/2024 2:3 8 PM EST XR ANKLE 3+ VIEWS LEFT Routine 11/15/2024 1:17 PM EST XR ANKLE 3+ VIEWS LEFT Routine 11/11/2024 10:45 AM EST XR TIBIA FIBULA 2 VIEWS LEFT Routine 11/11/2024 10:45 AM EST documented in this encounter Results * XR Ankle 3+ Views Left (11/26/2024 11:03 AM EST) Anatomical Region Laterality Modality Lower Extremities, Ankle Left Radiogr aphic Imaging 11/26/2024 11:0 3 AM EST Narrative 11/26/2024 11:36 AM EST ? [facility] ? [address] ?[place] [address] ?XRay Report ? Signed ? Patient: Stopa,Luc J ?MR#: [id number] ?? 78 ? : 1980 ?Acct:[id number] ? Age/Sex: 44 / M ?ADM Date: 11/26/24 ? Loc: HO.HOSX ? Attending Dr: Misha VELASQUEZ ? Ordering Physician: Anna Bennett PA-C ?? Date of Service: 11/26/24 ?? Procedure(s): XR ankle LT min 3V ?? Accession Number(s): [id number] ? cc: Diann Ramirez MD; Anna Bennett PA-C ? EXAMINATION: ??XR ANKLE 3 OR MORE VIEWS LEFT ? HISTORY: M25.579 - Pain in unspecified ankle and joints of unspecified ?? foot ? COMPARISON: Comparison is made with the prior examination dated ?? 11/17/2024. ? FINDINGS: ? Three views of the left ankle are submitted. ??Osseous mineralization is ?? normal. ??The patient is status post internal fixation of the previously ?? seen fracture of the distal fibula with a sideplate and multiple ?? orthopedic screws. Alignment is anatomic. A button is seen along the ?? medial malleolus. ??The joint spaces are preserved. There is a small ?? plantar calcaneal spur. ??The soft tissues are unremarkable. ? XR/XR ankle LT min 3V ?? IMPRESSION: ? Internal fixation of the previously seen oblique fracture of the distal ?? fibula. ? Electronically signed by: ??Jovany Arambula MD ??11/26/2024 11:33 AM EST ?? RP ? Dictated By: ?Jovany Arambula MD ? Signed By: ?<Electronically signed by Jovany Arambula MD in OV> ?11/26/24 1133 ? DD/ 1103 ? TD/TT: 11/26/24 1112 ? Furnace Erector: ? Procedure Note Colt Avendaño - 11/26/2024 [facility] [address] [facility] [address] [place] [address] XRay Report Signed Patient: Luc Erickson JMR#: [id number] 78 : 1980Acct:[id number] Age/Sex: 44 / MADM Date: 11/26/24 Loc: HO.HOSX Attending Dr: Misha VELASQUEZ Ordering Physician: Anna Bennett PA-C Date of Service: 11/26/24 Procedure(s): XR ankle LT min 3V Accession Number(s): [id number] cc: Diann Ramirez MD; Anna Bennett PA-C EXAMINATION: XR ANKLE 3 OR MORE VIEWS LEFT HISTORY: M25.579 - Pain in unspecified ankle and joints of unspecified foot COMPARISON: Comparison is made with the prior examination dated 11/17/2024. FINDINGS: Three views of the left ankle are submitted. Osseous mineralization is normal. The patient is status post internal fixation of the previously seen fracture of the distal fibula with a sideplate and multiple orthopedic screws. Alignment is anatomic. A button is seen along the medial malleolus. The joint spaces are preserved. There is a small plantar calcaneal spur. The soft tissues are unremarkable. XR/XR ankle LT min 3V IMPRESSION: Internal fixation of the previously seen oblique fracture of the distal fibula. Electronically signed by: Jovany Arambula MD 11/26/2024 11:33 AM EST RP Dictated By: Jovany Arambula MD Signed By: <Electronically signed by Jovany Arambula MD in OV> 11/26/24 1133 DD/ 1103 TD/TT: 11/26/24 1112 Furnace Erector: [facility] External Provider IMG XR PROCEDURES Final Result * FL Guidance in OR (11/24/2024 2:38 PM EST) Anatomical Region Laterality Modality X-Ray Angiograph y 11/24/2024 2:38 PM EST Narrative 11/25/2024 8:58 AM EST ? [facility] ?[address] ?[place] [address] ? Fluoroscopy Report ? Signed ? Patient: Stopa,Luc J ?MR#: [id number] ?? 78 ? : 1980 ?Acct:[id number] ? Age/Sex: 44 / M ?ADM Date: 02/05/25 ? Loc: HO.SSS ? Attending Dr: Will Randolph MD ? Ordering Physician: Will Randolph MD ?? Date of Service: 11/24/24 ?? Procedure(s): FL guidance in OR ?? Accession Number(s): [id number] ? cc: Diann Ramirez MD; Will Randolph MD ? EXAMINATION: ??FL GUIDANCE ONLY ? HISTORY: LEFT ANKLE ORIF ? COMPARISON: ?? Correlation is made to plain films of the left ankle dated 11/17/2024. ? TECHNIQUE: ?? Fluoroscopy time: 0.2 minutes. ?? Cumulative Dose: 0.821 mGy. ?? DAP: 0.0142 mGym2 ?? Images: 6. ? FINDINGS: ?? Images demonstrate internal fixation of a fracture of the distal fibula ?? with a sideplate and multiple orthopedic screws. A button is noted ?? along the medial malleolus. Alignment is anatomic. ? FL/FL guidance in OR ?? IMPRESSION: ?? Fluoroscopy during procedure. Please see procedure report for ?? additional information. ? Electronically signed by: ??Jovany Arambula MD ??11/25/2024 08:56 AM EST ?? RP ? Dictated By: ?Jovany Arambula MD ? Signed By: ?<Electronically signed by Jovany Arambula MD in OV> ?11/25/24 0856 ? DD/ 1438 ? TD/TT: 11/24/24 1527 ? Furnace Erector: ? Procedure Note Kateryna, Image - 11/25/[address] [address] Fluoroscopy Report Signed Patient: Luc Erickson JMR#: [id number] [birth year] : 1980Acct:[id number] Age/Sex: 44 / MADM Date: 11/24/24 Loc: HO.SSS Attending Dr: Will Randolph MD Ordering Physician: Will Randolph MD Date of Service: 11/24/24 Procedure(s): FL guidance in OR Accession Number(s): [id number] cc: Diann Ramirez MD; Will Randolph MD EXAMINATION: FL GUIDANCE ONLY HISTORY: LEFT ANKLE ORIF COMPARISON: Correlation is made to plain films of the left ankle dated 11/17/2024. TECHNIQUE: Fluoroscopy time: 0.2 minutes. Cumulative Dose: 0.821 mGy. DAP: 0.0142 mGym2 Images: 6. FINDINGS: Images demonstrate internal fixation of a fracture of the distal fibula with a sideplate and multiple orthopedic screws. A button is noted along the medial malleolus. Alignment is anatomic. FL/FL guidance in OR IMPRESSION: Fluoroscopy during procedure. Please see procedure report for additional information. Electronically signed by: Jovany Arambula MD 11/25/2024 08:56 AM EST RP Dictated By: Jovany Arambula MD Signed By: <Electronically signed by Jovany Arambula MD in OV> 11/25/24 0856 DD/ 1438 TD/TT: 11/24/24 1527 Furnace Erector: [facility] External Provider IMG IR PROCEDURES Final Result * XR Ankle 3+ Views Left (11/15/2024 1:17 PM EST) Anatomical Region Laterality Modality Lower Extremities, Ankle Left Radiogr aphic Imaging 11/15/2024 1:17 PM EST Narrative 11/15/2024 3:30 PM EST ? [facility] ? [address] ?[place] [address] ?XRay Report ? Signed ? Patient: Luc Erickson J ?MR#: [id number] ?? 78 ? : 1980 ?Acct:[id number] ? Age/Sex: 44 / M ?ADM Date: 11/15/ ? Loc: HO.HOSX ? Attending Dr: Shreya Whelan PA-C ? Ordering Physician: Shreya Whelan PA-C ?? Date of Service: 01/27/25 ?? Procedure(s): XR ankle LT min 3V ?? Accession Number(s): [id number] ? cc: Diann Ramirez MD; Shreya Whelan [...] DD/ 1317 ? TD/TT: 11/15/24 1320 ? Furnace Erector: ? Procedure Note Donalan, Image - 11/15/2024 [facility] [address] [place] [address] [address] [place] [address] XRay Report Signed Patient: Luc Erickson JMR#: [id number] [birth year] : 1980Acct:[id number] Age/Sex: 44 / MADM Date: 11/15/24 Loc: HOCORETTAX Attending Dr: Shreya Whelan PA-C Ordering Physician: Shreya Whelan PA-C Date of Service: 11/15/24 Procedure(s): XR ankle LT min 3V Accession Number(s): [id number] cc: Diann Ramirez MD; Shreya Whelan PA-C [...] 11/15/24 1527 DD/ 1317 TD/TT: 11/15/24 1320 Furnace Erector: [facility] External Provider IMG XR PROCEDURES Final Result * XR Tibia Fibula 2 Views Left (11/11/2024 10:45 AM EST) Anatomical Region Laterality Modality Lower Extremities, Lower Leg Left Rad iographic Imaging 11/11/2024 10:4 5 AM EST Narrative 11/11/2024 11:32 AM EST ? [facility] ?[address] ?[place] [address] ?XRay Report ? Signed ? Patient: Luc Erickson ?MR#: [id number] ?? 78 ? : 1980 ?Acct:[id number] ? Age/Sex: 44 / M ?ADM Date: 11/11/24 ? Loc: HO.ED ? Attending Dr: ? Ordering Physician: Generic ED Physician ?? Date of Service: 11/11/24 ?? Procedure(s): XR tibia fibula LT 2V ?? Accession Number(s): [id number] ? cc: Diann Ramirez MD; Generic ED [...] oblique fracture. ? Electronically signed by: ??Livan Leela MD ??11/11/2024 11:29 AM EST RP ? Dictated By: ?Leela,Livan S MD ? Signed By: ?<Electronically signed by Livan S Leela, MD in OV> ?11/11/24 1129 ? DD/ 1045 ? TD/TT: 11/11/24 1100 ? Furnace Erector: MSM ? Procedure Note Donerikainterpreter, Image - 11/11/[address] [address] XRay Report Signed Patient: Luc Erickson JMR#: [id number] [birth year] : 1980Acct:[id number] Age/Sex: 44 / MADM Date: 11/11/24 Loc: HO.ED Attending Dr: Ordering Physician: Generic ED Physician Date of Service: 11/11/24 Procedure(s): XR tibia fibula LT 2V Accession Number(s): [id number] cc: Diann Ramirez MD; Generic ED Physician [...] 11/11/24 1129 DD/ 1045 TD/TT: 11/11/24 1100 Furnace Erector: FEMI [facility] External Provider IMG XR PROCEDURES Final Result * XR Ankle 3+ Views Left (11/11/2024 10:45 AM EST) Anatomical Region Laterality Modality Lower Extremities, Ankle Left Radiogr aphic Imaging 11/11/2024 10:4 5 AM EST Narrative 11/11/2024 11:32 AM EST ? [facility] ?[address] ?[place] [address] ?XRay Report ? Signed ? Patient: Stopa,Luc J ?MR#: [id number] ?? 78 ? : 1980 ?Acct:[id number] ? Age/Sex: 44 / M ?ADM Date: 01/23/25 ? Loc: HO.ED ? Attending Dr: ? Ordering Physician: Generic ED Physician ?? Date of Service: 11/11/24 ?? Procedure(s): XR ankle LT min 3V ?? Accession Number(s): [id number] ? cc: Diann Ramirez MD; Generic ED [...] DD/ 1045 ? TD/TT: 11/11/24 1100 ? Furnace Erector: MSM ? Procedure Note Colt Avendaño - 11/11/[address] [address] XRay Report Signed Patient: Luc Erickson JMR#: [id number] 78 : 1980Acct:[id number] Age/Sex: 44 / MADM Date: 11/11/24 Loc: HO.ED Attending Dr: Ordering Physician: Generic ED Physician Date of Service: 11/11/24 Procedure(s): XR ankle LT min 3V Accession Number(s): [id number] cc: Diann Ramirez MD; Generic ED Physician [...] 11/11/24 1129 DD/ 1045 TD/TT: 11/11/24 1100 Furnace Erector: FEMI [facility] External Provider IMG XR PROCEDURES Final Result documented in this encounter Visit Diagnoses Not on filedocumented in this encounter Additional Health Concerns Assessment Noted Time PHQ-9 Depression Total Score: 4 03/20/20 24 9:12 AM EDT documented as of this encounter Care Teams Doughnut Icer Machine Relationship Specialty Start Date End Date Diann Ramirez MD [address] [place] [address] PCP - General Internal Medicine 07/16/12 documented as of this encounter
--- OUTSIDE RECORDS SUMMARY | 2024-11-26 12:04 | XMS_ITS | Encounter Summary ---
Author Organization [employer] Address 75 [facility] 7 [place] [address] Care Team Providers Care Oracle Database Developer Name Role Phone Diann Ramirez MD Primary Care Provider [phone] Reason for Visit * Reason Onset Date Comments Referral 08/09/2024 Encounter Details Date Type Department Care Team (Late st Contact Info) Description 08/09/2024 Telephone [facility] MEDICINE [address] [place] [address] Diann Ramirez MD [address] [place], [place] [id number] Referral Social History Tobacco Use Types Packs/Day [...] Jimenez RN - 08/14/2024 12:07 PM EDT [employer] message informing pt referral for Neuro was sent to [facility] and pt should get a call [...] Info) Description 12/20/2024 2:00 PM EST Telemedicine [facility] MED & PEDS [address] [place] [address] Naomi Reyes RN [address] [place] [address] 02/15/2025 1:30 PM EDT Office Visit [facility] MED & PEDS [address] [place] [address] Diann Ramirez MD [address] [place] [address] documented as of this encounter Visit Diagnoses Not on filedocumented in this encounter Additional Health Concerns Assessment Noted Time PHQ-9 Depression Total Score: 4 03/20/20 24 9:12 AM EDT documented as of this encounter Care Teams Oracle Database Developer Relationship Specialty Start Date End Date Diann Ramirez MD [address] [place] [address] PCP - General Internal Medicine 07/16/12 documented as of this encounter
--- OUTSIDE RECORDS SUMMARY | 2024-11-26 12:04 | XMS_ITS | Encounter Summary ---
Author Organization [employer] Address 75 [facility] 7 [place] [address] Care Team Providers Care Fireworks Assembly Supervisor Name Role Phone Diann Ramirez MD Primary Care Provider [phone] Reason for Visit * Reason Onset Date Comments Appointment Request 08/04/2024 Encounter Details Date Type Department Care Team ([facility] st Contact Info) Description 08/04/[address] [facility] MEDICINE [address] [place] [address] Diann Ramirez MD [address] [place] [address] Appointment Request Social History Tobacco Use Types [...] EDT Tc from pt requesting to r/s ROVING MARKER RN appt scheduled for today, appt has been cancelled. Please contact at [phone] documented in this encounter Plan of Treatment Upcoming Encounters Date Type Department Care Team (Late st Contact Info) Description 12/20/2024 2:00 PM EST Telemedicine [facility] MED & PEDS [address] [place] [address] Naomi Reyes RN [address] [place] [address] 02/15/2025 1:30 PM EDT Office Visit [facility] MED & PEDS [address] [place] [address] Diann Ramirez MD [address] [place] [address] documented as of this encounter Visit Diagnoses Not on filedocumented in this encounter Additional Health Concerns Assessment Noted Time PHQ-9 Depression Total Score: 4 03/20/20 24 9:12 AM EDT documented as of this encounter Care Teams Fireworks Assembly Supervisor Relationship Specialty Start Date End Date Diann Ramirez MD [address] [place] [address] PCP - General Internal Medicine 07/16/12 documented as of this encounter
--- OUTSIDE RECORDS SUMMARY | 2024-11-26 12:05 | XMS_ITS | Encounter Summary ---
Author Organization [employer] Address [address] [facility] [address] 7[address] [place] [address] Care Team Providers Care Senior Consumer Insights Consultant Name Role Phone Diann Ramirez MD Primary Care Provider [phone] Encounter Details Date Type Department Care Team [...] EST Telemedicine [facility] MED & PEDS [address] [place] [address] Naomi Reyes RN [address] [place] [address] 02/15/2025 1:30 PM EDT Office Visit [facility] MED & PEDS [address] [place] [address] Diann Ramirez MD [address] [place] [address] documented as of this encounter Visit Diagnoses Not on filedocumented in this encounter Additional Health Concerns Assessment Noted Time PHQ-9 Depression Total Score: 4 03/20/20 24 9:12 AM EDT documented as of this encounter Care Teams Senior Consumer Insights Consultant Relationship Specialty Start Date End Date Diann Ramirez MD [address] [place] [address] PCP - General Internal Medicine 07/16/12 documented as of this encounter
--- OUTSIDE RECORDS SUMMARY | 2024-11-26 12:05 | XMS_ITS | Encounter Summary ---
Author Organization [employer] Address [address] [place] [address] Care Team Providers Care Remote Operations Producer Name Role Phone Diann Ramirez MD Primary Care Provider [phone] Reason for Visit * Reason Onset Date Comments Appointment Request 01/06/2023 Encounter Details Date Type Department Care Team (Late st Contact Info) Description 01/06/2023 Telephone [facility] MEDICINE [address] [place] [address] Diann Ramirez MD [address] [place] [address] Appointment Request Social History Tobacco Use Types [...] requesting to r/s appt on 01/06/23 ( DIRECTOR CORPORATE COMPLIANCE Televisit ) documented in this encounter Plan of Treatment Upcoming Encounters Date Type Department Care Team (Late st Contact Info) Description 12/20/2024 2:00 PM EST Telemedicine [facility] MED & PEDS [address] [place] [address] Naomi Reyes, RN [address] [place] [address] 02/15/2025 1:30 PM EDT Office Visit [facility] MED & PEDS [address] [place] [address] Diann Ramirez MD [address] [place] [address] documented as of this encounter Visit Diagnoses Not on filedocumented in this encounter Additional Health Concerns Assessment Noted Time PHQ-9 Depression Total Score: 1 10/31/19 23 3:59 PM EST documented as of this encounter Care Teams Remote Operations Producer Relationship Specialty Start Date End Date Diann Ramirez MD [address] [place] [address] PCP - General Internal Medicine 07/16/12 documented as of this encounter
--- OUTSIDE RECORDS SUMMARY | 2024-11-26 12:05 | XMS_ITS | Encounter Summary ---
Author Organization [employer] Address [address] [facility] 7[address] [place] [address] Care Team Providers Care Vending Machine Servicer Name Role Phone Diann Ramirez MD Primary Care Provider [phone] Encounter Details Date Type Department Care Team (Late st Contact Info) Description 05/18/2024 Orders Only [facility] MED & PEDS [address] [place], [place] [id number] Provider, MD Shar Social History Tobacco Use [...] Description 12/20/2024 2:00 PM EST Telemedicine [facility] MED & PEDS [address] [place] [address] Naomi Reyes RN [address] [place] [address] 02/15/2025 1:30 PM EDT Office Visit [facility] MED & PEDS [address] [place] [address] Diann Ramirez MD [address] [place] [address] documented as of this encounter Procedures Procedure [...] documented as of this encounter Care Teams Vending Machine Servicer Relationship Specialty Start Date End Date Diann Ramirez MD [address] [place] [address] PCP - General Internal Medicine 07/16/12 documented as of this encounter
--- OUTSIDE RECORDS SUMMARY | 2024-11-26 12:05 | XMS_ITS | Clinical Summary ---
Author Organization [facility] ity Address [address] [place] [address] Care Team Providers Care Boot And Saddle Repair Person Name Role Phone Unavailable Primary Care Provider [...]
--- OUTSIDE RECORDS SUMMARY | 2024-11-26 12:05 | XMS_ITS | Encounter Summary ---
Author Organization [employer] Address [address] [facility] 7 [place] [address] Care Team Providers Care Transition Lead Name Role Phone Diann Ramirez MD Primary Care Provider [phone] Reason for Visit * Reason Onset Date Comments Med Refill 07/01/2024 Encounter Details Date Type Department Care Team (Late st Contact Info) Description 07/01/2024 Telephone [facility] MEDICINE [address] [place] [address] Diann Ramirez MD [address] [place] [address] Med Refill Social History Tobacco Use Types [...] Description 12/20/2024 2:00 PM EST Telemedicine [facility] MED & PEDS [address] [place] [address] Naomi Reyes, TABATHA [address] [place] [address] 02/15/2025 1:30 PM EDT Office Visit [facility] MED & PEDS [address] [place] [address] Diann Ramirez MD [address] [place] [address] documented as of this encounter Visit Diagnoses Not on filedocumented in this encounter Additional Health Concerns Assessment Noted Time PHQ-9 Depression Total Score: 4 03/20/20 24 9:12 AM EDT documented as of this encounter Care Teams Transition Lead Relationship Specialty Start Date End Date Diann Ramirez MD [address] [place] [address] PCP - General Internal Medicine 07/16/12 documented as of this encounter
--- OUTSIDE RECORDS SUMMARY | 2024-11-26 12:05 | XMS_ITS | Encounter Summary ---
Author Organization [employer] Address [address] [facility] 7 [place] [address] Care Team Providers Care Tableau Developer Name Role Phone Diann Ramirez MD Primary Care Provider [phone] Reason for Visit * Reason Onset Date Comments Referral 11/21/2022 Encounter Details Date Type Department Care Team (Late st Contact Info) Description 11/21/2022 Telephone [facility] MEDICINE [address] [place] [address] Diann Ramirez MD [address] [place] [address] Referral Social History Tobacco Use Types Packs/Day [...] by Dr Linton Please contact pt at [phone] Please see above message. Thanks * Telephone Encounter - Mario Tavaresos - 11/21/2022 2:42 PM EST Tc from pt requesting a new referral for neurologist states don't want to be seen by Dr Linton Please contact pt at [phone] documented in this encounter Plan of Treatment Upcoming Encounters Date Type Department Care Team (Late st Contact Info) Description 12/20/2024 2:00 PM EST Telemedicine [facility] MED & PEDS [address] [place] [address] Naomi Reyes RN [address] [place] [address] 02/15/2025 1:30 PM EDT Office Visit [facility] MED & PEDS [address] [place] [address] Diann Ramirez MD [address] [place] [address] documented as of this encounter Visit Diagnoses Diagnosis Chronic cluster headache, not intractable- Primary documented in this encounter Additional Health Concerns Assessment Noted Time PHQ-9 Depression Total Score: 1 10/31/19 23 3:59 PM EST documented as of this encounter Care Teams Tableau Developer Relationship Specialty Start Date End Date Diann Ramirez MD [address] [place] [address] PCP - General Internal Medicine 07/16/12 documented as of this encounter
--- OUTSIDE RECORDS SUMMARY | 2024-11-26 12:05 | XMS_ITS | Encounter Summary ---
Author Organization [employer] Address [address] [facility] 7 [place] [address] Care Team Providers Care Real Estate Recruiter Name Role Phone Diann Ramirez MD Primary Care Provider [phone] Reason for Visit * Reason Comments Hypertension Encounter Details Date Type Department Care Team ([facility] st Contact Info) Description 11/15/2024 9:15 AM EST Office Visit [facility] CHC MED & PEDS [address] [place], [place] [phone] Diann Ramirez MD [address] [place] [address] Primary hypertension (Primary Dx); Other closed fracture of distal end of left fibula, initial encounter; Dietary counseling; Exercise counseling; Class 2 severe obesity due to excess calories with serious comorbidity and body mass index (BMI) of 35.0 to 35.9 in adult ([facility]) Social History Tobacco Use Types Packs/Day [...] index (BMI) of35.0 to 35.9 in adult ([facility]) Discussed calorie deficit, recommended reduction of 20-30% of maintenance calories; paperboard machine operator referral offered. Recommended to decrease soda and sugary beverage consumption. Recommended at least 20 g per meal of protein to assist with satiety. Recommended at least 150 min/week of moderate intensity exercise. documented in this encounter Plan of Treatment Upcoming Encounters Date Type Department Care Team (Late st Contact Info) Description 12/20/2024 2:00 PM EST Telemedicine [facility] MED & PEDS [address] [place] [address] Naomi Reyes, TABATHA [address] [place] [address] 02/15/2025 1:30 PM EDT Office Visit [facility] MED & PEDS [address] [place] [address] Diann Ramirez MD [address] [place] [address] documented as of this encounter Visit Diagnoses Diagnosis Primary hypertension- Primary Unspecified essential hypertension Other closed fracture of distal end of left fibula, initial encounter Dietary counseling Dietary surveillance and counseling Exercise counseling Class 2 severe obesity due to excess calories with serious comorbidity and body mass index (BMI) of 35.0 to 35.9 in adult ([facility]) documented in this encounter Additional Health Concerns Assessment Noted Time PHQ-9 Depression Total Score: 4 03/20/20 24 9:12 AM EDT documented as of this encounter Care Teams Real Estate Recruiter Relationship Specialty Start Date End Date Diann Ramirez MD [address] [place] [address] PCP - General Internal Medicine 9/27/12 documented as of this encounter
--- OUTSIDE RECORDS SUMMARY | 2024-11-26 12:05 | XMS_ITS | Encounter Summary ---
Author Organization [employer] Address [address] [facility] 7 [place] [address] Care Team Providers Care Diploma Maker Name Role Phone Diann Ramirez MD Primary Care Provider [phone] Reason for Visit * Reason Onset Date Comments Med Refill 10/25/2022 Encounter Details Date Type Department Care Team (Late st Contact Info) Description 10/25/2022 Telephone [facility] MEDICINE [address] [place], [place] [phone] Diann Ramirez MD [address] [place], [place] [phone] Med Refill Social History Tobacco Use Types [...] for lorazepam 1 mg. Please contact at [phone] documented in this encounter Plan of Treatment Upcoming Encounters Date Type Department Care Team (Late st Contact Info) Description 12/20/2024 2:00 PM EST Telemedicine [facility] MED & PEDS [address] [place] [address] Naomi Reyes RN [address] [place] [address] 02/15/2025 1:30 PM EDT Office Visit [facility] MED & PEDS [address] [place] [address] Diann Ramirez MD [address] [place] [address] documented as of this encounter Visit Diagnoses Not on filedocumented in this encounter Care Teams Diploma Maker Relationship Specialty Start Date End Date Diann Ramirez MD [address] [place] [address] PCP - General Internal Medicine 07/16/12 documented as of this encounter
--- OUTSIDE RECORDS SUMMARY | 2024-11-26 12:05 | XMS_ITS | Encounter Summary ---
Author Organization [employer] Address [address] [facility] 7 [place] [address] Care Team Providers Care Assistant Store Manager Trainee Name Role Phone Diann Ramirez MD Primary Care Provider [phone] Reason for Visit * Reason Onset Date Comments Med Refill 09/02/2024 Encounter Details Date Type Department Care Team (Late st Contact Info) Description 09/02/2024 Telephone [facility] MEDICINE [address] [place] [address] Diann Ramirez MD [address] [place] [address] Med Refill Social History Tobacco Use Types [...] 1 MG tablet To be sent to: [id number] [place] - [address] [facility] [place] [facility] [place] [facility] documented in this encounter Plan of Treatment Upcoming Encounters Date Type Department Care Team (Late st Contact Info) Description 12/20/2024 2:00 PM EST Telemedicine [facility] MED & PEDS [address] [place] [address] Naomi Reyes RN [address] [place] [address] 02/15/2025 1:30 PM EDT Office Visit [facility] MED & PEDS [address] [place] [address] Diann Ramirez MD [address] [place] [address] documented as of this encounter Visit Diagnoses Not on filedocumented in this encounter Additional Health Concerns Assessment Noted Time PHQ-9 Depression Total Score: 4 03/20/20 24 9:12 AM EDT documented as of this encounter Care Teams Assistant Store Manager Trainee Relationship Specialty Start Date End Date Diann Ramirez MD [address] [place] [address] PCP - General Internal Medicine 07/16/12 documented as of this encounter
--- OUTSIDE RECORDS SUMMARY | 2024-11-26 12:05 | XMS_ITS | Encounter Summary ---
Author Organization [employer] Address [address] [facility] 7 [place] [address] Care Team Providers Care Jacquard Loom Weaver Name Role Phone Diann Ramirez MD Primary Care Provider [phone] Reason for Visit * Reason Onset Date Comments Appointment Request 04/28/2024 Encounter Details Date Type Department Care Team (Late st Contact Info) Description 04/28/2024 Telephone [facility] MEDICINE [address] [place] [address] Diann Ramirez MD [address] [place] [address] Appointment Request Social History Tobacco Use Types [...] won't be able to make it today's UROLOGY TEACHER visit due to not feeling well and is requesting to reschedule. Please contact pt at [phone]. documented in this encounter Plan of Treatment Upcoming Encounters Date Type Department Care Team (Late st Contact Info) Description 12/20/2024 2:00 PM EST Telemedicine [facility] MED & PEDS [address] [place] [address] Naomi Reyes, RN [address] [place] [address] 02/15/2025 1:30 PM EDT Office Visit [facility] MED & PEDS [address] [place] [address] Diann Ramirez MD [address] [place] [address] documented as of this encounter Visit Diagnoses Not on filedocumented in this encounter Additional Health Concerns Assessment Noted Time PHQ-9 Depression Total Score: 4 03/20/20 24 9:12 AM EDT documented as of this encounter Care Teams Jacquard Loom Weaver Relationship Specialty Start Date End Date Diann Ramirez MD [address] [place] [address] PCP - General Internal Medicine 07/16/12 documented as of this encounter
--- OUTSIDE RECORDS SUMMARY | 2024-11-26 12:05 | XMS_ITS | Encounter Summary ---
Author Organization [employer] Address [address] [facility] 7 [place] [address] Care Team Providers Care Cardiac Surgeon Name Role Phone Diann Ramirez MD Primary Care Provider [phone] Reason for Visit * Reason Onset Date Comments Appointment Request 06/17/2024 Encounter Details Date Type Department Care Team ([facility] st Contact Info) Description 06/17/2024 Telephone [facility] MEDICINE [address] [place] [address] Diann Ramirez MD [address] [place] [address] Appointment Request Social History Tobacco Use Types [...] would like a sooner appt than what principal technical writer offered documented in this encounter Plan of Treatment Upcoming Encounters Date Type Department Care Team (Late st Contact Info) Description 12/20/2024 2:00 PM EST Telemedicine [facility] MED & PEDS [address] [place] [address] Naomi Reyes RN [address] [place] [address] 02/15/2025 1:30 PM EDT Office Visit [facility] MED & PEDS [address] [place] [address] Diann Ramirez MD [address] [place] [address] documented as of this encounter Visit Diagnoses Not on filedocumented in this encounter Additional Health Concerns Assessment Noted Time PHQ-9 Depression Total Score: 4 03/20/20 24 9:12 AM EDT documented as of this encounter Care Teams Cardiac Surgeon Relationship Specialty Start Date End Date Diann Ramirez MD [address] [place] [address] PCP - General Internal Medicine 07/16/12 documented as of this encounter
--- OUTSIDE RECORDS SUMMARY | 2024-11-26 12:05 | XMS_ITS | Clinical Summary ---
Author Organization [employer] Address [address] [facility] 7t [place] [address] Care Team Providers Care Software Test Analyst Name Role Phone Diann Ramirez MD Primary Care Provider [phone]- [phone] Allergies Active Allergy Reactions Criticality Noted Date [...] 23 Active ergocalciferol (Vitamin D2) 1.25 MG (27594 UT) capsuleIndicati ons:Vitamin D deficiency Take 1 [...] EVERY 6 HOURS. Do not start before November 27, 2024. 120 tablet 11/27/19 25 Active LORazepam (Ativan) 1 MG tabletIndicatio ns:Anxiety TAKE 1 TABLET(1 MG) BY MOUTH EVERY 6 HOURS. Do not start before October 30, 2024. 120 tablet 10/30/19 25 2024 Discontinued(R eorder (will not trigger notification [...] and protective factors. Referral placed sent to [facility] on 07/21 for OP services. Provided information [...] intervention , Patient to reach out to [facility] team as needed, Patient to engage in OP therapy , and Patient to reach out to HC as needed Assessment & Plan (03/20/2024 11:35 [...] and protective factors. Referral placed sent to [facility] on 07/21 for OP services. Provided information [...] intervention , [facility], Patient to engage [...] Type Department Care Team Description 11/24/2024 Refill [facility] [address] [place] [address] Diann Ramirez MD Anxiety 11/15/2024 9:15 AM EST Office Visit [facility] [address] [place] [address] Diann Ramirez MD Primary hypertension (Primary Dx); Other closed fracture of distal end of left fibula, initial encounter; Dietary counseling; Exercise counseling; Class 2 severe obesity due to excess calories with serious comorbidity and body mass index (BMI) of 35.0 to 35.9 in adult ([facility]) 11/15/2024 Travel 11/11/2024 Orders Only [facility] External Provider, [facility] 10/27/[address] [facility] [address] [place] [address] Diann Ramirez MD Anxiety 10/01/[address] [facility] [address] [place] [address] Diann Ramirez MD Results 10/01/2024 Refill [facility] [address] [place] [address] Diann Ramirez MD Anxiety 10/01/2024 Orders [address] [facility] [address] [place] [address] Diann Ramirez MD Hiatal hernia (Primary Dx) 09/22/2024 9:30 AM EST Clinical Support [facility] [address] [place] [address] Naomi Reyes, TABATHA Anxiety 09/22/[address] [facility] [address] [place] [address] Naomi Reyes, RN 09/22/2024 Travel 09/02/[address] [facility] [address] [place] [address] Naomi Reyes, RN Anxiety 09/02/2024 Telephone [facility] [address] [place] [address] Diann Ramirez MD Med Refill from Last [...] Upcoming Encounters Date Type Department Care Team ([facility] st Contact Info) Description 12/20/2024 2:00 PM EST Telemedicine [facility] [address] [place] [address] Naomi Reyes, TABATHA [address] [place] [address] 02/15/2025 1:30 PM EDT Office Visit [facility] [address] [place] [address] Diann Ramirez MD [address] [place] [address] Health Maintenance Due Date Last Done Comments [...] 3+ Views Left (11/26/2024 11:03 AM EST) Only the most recent of3 resultswithin the time period is included. Anatomical Region Laterality Modality Lower Extremities, Ankle Left Radiogr aphic Imaging 11/26/2024 11:0 3 AM EST Narrative 11/26/2024 11:36 AM EST ? [facility] ? [address] ?[place] [address] ?XRay Report ? Signed ? Patient: Luc Erickson ?MR#: [id number] ?? 78 ? : 1980 ?Acct:[id number] ? Age/Sex: 44 / M ?ADM Date: 11/26/24 ? Loc: HO.HOSX ? Attending Dr: Misha VELASQUEZ ? Ordering Physician: Anna Bennett PA-C ?? Date of Service: 11/26/24 ?? Procedure(s): XR ankle LT min 3V ?? Accession Number(s): [id number] ? cc: Diann Ramirez MD; Anna Bennett [...] DD/ 1103 ? TD/TT: 11/26/24 1112 ? Master Electrician: ? Procedure Note Kateryna, Image - 11/26/2024 [facility] [address] [place] [address] [address] [place] [address] XRay Report Signed Patient: Luc Erickson JMR#: [id number] [birth year] : 1980Acct:[id number] Age/Sex: 44 / MADM Date: 11/26/24 Loc: IAN Attending Dr: Misha VELASQUEZ Ordering Physician: Anna Bennett PA-C Date of Service: 11/26/24 Procedure(s): XR ankle LT min 3V Accession Number(s): [id number] cc: Diann Ramirez MD; Anna Bennett PA-C [...] Jovany Arambula MD 11/26/2024 11:33 AM EST Dictated By: Jovany Arambula MD Signed By: <Electronically signed by Jovany Arambula MD in OV> 11/26/24 1133 DD/ 1103 TD/TT: 11/26/24 1112 Master Electrician: [facility] External Provider IMG XR PROCEDURES Final Result * FL Guidance in OR (11/24/2024 2:38 PM EST) Anatomical Region Laterality Modality X-Ray Angiograph y 11/24/2024 2:38 PM EST Narrative 11/25/2024 8:58 AM EST ? [facility] ?[address] ?[place] [address] ? Fluoroscopy Report ? Signed ? Patient: Stopa,Luc J ?MR#: [id number] ?? 78 ? : 1980 ?Acct:[id number] ? Age/Sex: 44 / M ?ADM Date: 11/24/24 ? Loc: HO.SSS ? Attending Dr: Will Randolph MD ? Ordering Physician: Will Randolph MD ?? Date of Service: 11/24/24 ?? Procedure(s): FL guidance in OR ?? Accession Number(s): [id number] ? cc: Diann Ramirez MD; Will Randolph [...] DD/ 1438 ? TD/TT: 11/24/24 1527 ? Master Electrician: ? Procedure Note Kateryna, Colt - 11/25/[address] [place] [address] Fluoroscopy Report Signed Patient: Luc Erickson JMR#: [id number] [birth year] : 1980Acct:[id number] Age/Sex: 44 / MADM Date: 11/24/24 Loc: HO.SSS Attending Dr: Will Randolph MD Ordering Physician: Will Randolph MD Date of Service: 11/24/24 Procedure(s): FL guidance in OR Accession Number(s): [id number] cc: Diann Ramirez MD; Will Randolph MD [...] Jovany Arambula MD 11/25/2024 08:56 AM EST Dictated By: Jovany Arambula MD Signed By: <Electronically signed by Jovany Arambula MD in OV> 11/25/24 0856 DD/ 1438 TD/TT: 11/24/24 1527 Master Electrician: [facility] External Provider IMG IR PROCEDURES Final Result * XR Tibia Fibula 2 Views Left (11/11/2024 10:45 AM EST) Anatomical Region Laterality Modality Lower Extremities, Lower Leg Left Rad iographic Imaging 11/11/2024 10:4 5 AM EST Narrative 11/11/2024 11:32 AM EST ? [facility] ?[address] ?[place] [address] ?XRay Report ? Signed ? Patient: Stopa,Luc J ?MR#: [id number] ?? 78 ? : 1980 ?Acct:[id number] ? Age/Sex: 44 / M ?ADM Date: 01/23/25 ? Loc: HO.ED ? Attending Dr: ? Ordering Physician: Generic ED Physician ?? Date of Service: 11/11/24 ?? Procedure(s): XR tibia fibula LT 2V ?? Accession Number(s): [id number] ? cc: Diann Ramirez MD; Generic ED [...] DD/ 1045 ? TD/TT: 11/11/24 1100 ? Master Electrician: MSM ? Procedure Note Kateryna, Image - 11/11/2024 [place] [address] XRay Report Signed Patient: Luc Erickson JMR#: [id number] 78 : 1980Acct:[id number] Age/Sex: 44 / MADM Date: 11/11/24 Loc: HO.ED Attending Dr: Ordering Physician: Generic ED Physician Date of Service: 11/11/24 Procedure(s): XR tibia fibula LT 2V Accession Number(s): [id number] cc: Diann Ramirez MD; Generic ED Physician [...] 11/11/24 1129 DD/ 1045 TD/TT: 11/11/24 1100 Master Electrician: FEMI [facility] External Provider IMG XR PROCEDURES Final Result * FL Esophagus Barium Swallow (09/30/2024 8:33 AM EST) Anatomical Region Laterality Modality Head, Neck Radiographic Lacey ging 09/30/2024 8:33 AM EST Narrative 09/30/2024 4:36 PM EST ? [facility] ?[address] ?[place] [address] ? Fluoroscopy Report ? Signed ? Patient: Stopa,Luc J ?MR#: [id number] ?? 78 ? : 1980 ?Acct:[id number] ? Age/Sex: 44 / M ?ADM Date: 09/30/24 ? Loc: HO.XRAY ? Attending Dr: Diann Ramirez MD ? Ordering Physician: Diann Ramirez MD ?? Date of Service: 09/30/24 ?? Procedure(s): FL barium swallow ?? Accession Number(s): [id number] ? cc: Diann Ramirez MD ? EXAMINATION: [...] DD/ 0833 ? TD/TT: 09/30/24 0904 ? Master Electrician: ? Procedure Note Kateryna, Image - 10/01/[address] [address] Fluoroscopy Report Signed Patient: Luc Erickson JMR#: [id number] [birth year] : 1980Acct:[id number] Age/Sex: 44 / MADM Date: 09/30/24 Loc: HO.XRAY Attending Dr: Diann Ramirez MD Ordering Physician: Diann Ramirez MD Date of Service: 09/30/24 Procedure(s): FL barium swallow Accession Number(s): [id number] cc: Diann Ramirez MD EXAMINATION: XR FLUOROSCOPY [...] MD 09/30/2024 04:33 PM EST RP Workstation: [id number] Dictated By: Perfecto Babb Signed By: <Electronically signed by Perfecto Babb in OV> 09/30/24 1633 <Electronically signed by Carter Ruiz MD in OV> 09/30/24 1636 DD/ 0833 TD/TT: 09/30/24 0904 Master Electrician: us Diann Ramirez MD IMG FLUOROSCOPY PROCEDURES Edited Result - Final * POCT COLLIN-14 Urine Drug Screen (09/22/2024 9:58 AM EST) Benzodiazepines Screen, Urine Positive Buprenophine Screen, Urine Positive Urine Urine specimen obtained by clean catch procedure / Unknown 09/22/2024 9:58 AM EST Narrative Naomi Reyes RN - 09/22/2024 9:58 AM EST Lot# [id number] Exp: 09-25-25 us Diann Ramirez MD POINT OF CARE TEST ENTER/ED IT ORDERABLES Final Result * (ABNORMAL) Lipid Panel, Standard (03/11/2024 1:07 PM EDT) Triglycerides 40 <150 mg/dL [facility] Comment:Desirable Triglyceri de: less than 150 mg/dLBorderline High Triglyceride 150-199 mg/dLHigh Triglyceride: 200-499 mg/dLVery High Triglyceride: greater than or equal to 5OO mg/dL Cholesterol 141 <200 mg/dL [facility] Comment:Desirable Cholestero l: less than 200 mg/dLBorderline High Cholesterol: 200-239 mg/dLHigh Cholesterol: greater than 239 mg/dL LDL Cholesterol Calculated 93 <100 mg/dL [facility] Comment:Desirable LDL: less than 100 mg/dLNear Optimal/Above Optimal LDL: 110- 129 mg/dLBorderline High LDL: 130-159 mg/dLHigh LDL: 160-189 mg/dLVery High LDL: greater than or equal to 190 mg/dL HDL Cholesterol 40(L) >40 mg/dL [facility] Comment:Desirable HDL: great er than 40 mg/dL Note: This HDL assay may give artificially low results in patients with liver disease. Blood Venous blood specimen / Unknown 03/11/2024 1:07 PM EDT 03/11/2024 2:22 PM EDT us Diann Ramirez MD LAB BLOOD ORDERABLES Final Result Performing Organization Address City/[facility]/ZIP Co de Phone Number [facility] [address] [place] [phone] * HIV AB/AG (08/07/2022 2:03 PM EDT) [facility] HIV AB/AG Nonreactive Nonreactive [facility] Comment: HIV-1 p24 Ag and/or [...] detection of this assay. ?? [employer] Sales[employer] HIV Ag/Ab Combo assay result and supplemental assay results should be interpreted in conjunction with the patient's clinical presentation, history and other laboratory results. ??If the results are inconsistent with clinical evidence, additional testing is suggested to confirm the result. 08/07/2022 2:03 PM EDT us Tra Linton MD HISTORICAL/NON ORDERAB LE LABS Final Result [facility] * HEPATITIS C AB W/REFL TO HCV RNA, QN, PCR (07/01/2022 10:13 AM EDT) HEPATITIS C ANTIBODY NON-REACT JESSEE NON-REACT JESSEE [facility] INDEX 0.14 <1.00 [facility] Comment: ?? HCV antibody was non-reactive. There is no laboratory ?? evidence of HCV infection. ?? In most cases, no further action is required. However, if recent HCV exposure is suspected, a test for HCV RNA (test code 69755) is suggested. ?? For additional information please refer to http://education.[employer]/faq/QQE52p1 (This link is being provided for informational/ educational purposes only.) ?? 07/01/2022 10:1 3 AM EDT us Diann Ramirez MD HISTORICAL/NON ORDERABLE PUMA JAMESON Final Result [facility] Anywhere [address] from Last 3 Months or Most Recently Relevant to Health Maintenance Insurance [facility] [employer] * Guarantor: Luc Erickson Account Type Relation to Patient Date of Phone Billing Address Personal/[place] [address] * Guarantor: Luc Erickson Account Type Relation to Patient Date of Phone Billing Address Personal/[place] [address] Care Teams Software Test Analyst Relationship Specialty Start Date End Date Diann Ramirez MD [address] [place] [address] [place] [address] PCP - General Internal Medicine 07/16/12
--- OUTSIDE RECORDS SUMMARY | 2024-11-26 12:05 | XMS_ITS | Encounter Summary ---
Author Organization [employer] Address [address] [facility] 7 [place] [address] Care Team Providers Care Furnace Stock Inspector Name Role Phone Diann Ramirez MD Primary Care Provider [phone] Reason for Visit * Reason Onset Date Comments Med Refill 05/31/2024 Encounter Details Date Type Department Care Team (Late st Contact Info) Description 05/31/2024 Telephone [facility] [address] [place] [address] Diann Ramirez MD [address] [place] [address] Med Refill Social History Tobacco Use Types [...] 1 MG tablet To be sent to: [id number] - [place] [address] [facility] documented in this encounter Plan of Treatment Upcoming Encounters Date Type Department Care Team (Late st Contact Info) Description 12/20/2024 2:00 PM EST Telemedicine [facility] [address] [place] [address] Naomi Reyes RN [address] [place] [address] 02/15/2025 1:30 PM EDT Office Visit [facility] [address] [place] [address] Diann Ramirez MD [address] [place] [address] documented as of this encounter Visit Diagnoses Not on filedocumented in this encounter Additional Health Concerns Assessment Noted Time PHQ-9 Depression Total Score: 4 03/20/20 24 9:12 AM EDT documented as of this encounter Care Teams Furnace Stock Inspector Relationship Specialty Start Date End Date Diann Ramirez MD [address] [place] [address] PCP - General Internal Medicine 07/16/12 documented as of this encounter
--- OUTSIDE RECORDS SUMMARY | 2024-11-26 12:05 | XMS_ITS | Encounter Summary ---
Author Organization [employer] Address [address] [facility] 7 [place] [address] Care Team Providers Care Wool Supplier Name Role Phone Diann Ramirez MD Primary Care Provider [phone] Reason for Visit * Reason Onset Date Comments Med Refill 11/25/2022 Encounter Details Date Type Department Care Team (Late st Contact Info) Description 11/25/2022 Telephone [facility] [address] [place] [address] Diann Ramirez MD [address] [place] [address] Med Refill Social History Tobacco Use Types [...] [facility] [address] [place] [address] Naomi Reyes RN [address] [place] [address] 02/15/2025 1:30 PM EDT Office Visit [facility] [address] [place] [address] Diann Ramirez MD [address] [place] [address] documented as of this encounter Visit Diagnoses Not on filedocumented in this encounter Additional Health Concerns Assessment Noted Time PHQ-9 Depression Total Score: 1 10/31/19 23 3:59 PM EST documented as of this encounter Care Teams Wool Supplier Relationship Specialty Start Date End Date Diann Ramirez MD [address] [place] [address] PCP - General Internal Medicine 07/16/12 documented as of this encounter
--- OUTSIDE RECORDS SUMMARY | 2024-11-26 12:05 | XMS_ITS | Encounter Summary ---
Author Organization [employer] Address [address] [place] [address] 7t [place] [address] Care Team Providers Care Child And Youth Program Assistant Name Role Phone Diann Ramirez MD Primary Care Provider [phone] Reason for Referral * Consultation (Routine) - Closed Specialty Diagnoses / Procedures Referred By Dania blackman Referred To Contact Hematology and Oncology Diagnoses Microcytic anemia Bicytopenia Diann Ramirez MD [address] [place] [address] Phone: tel: fax: Cornell Culver MD [address] [place] [phone] Phone: tel: fax: Referral ID Status Reason Start Date Expiration Date V isits Requested Visits Authorized [id number] Closed Specialty Services Required 03/16/2024 03/16/2025 1 1 * Imaging (Routine) - Closed Specialty Diagnoses / Procedures Referred By Contcary t Referred To Contact Diagnoses Numbness of right foot Numbness of left foot Procedures EMG Diann Ramirez MD [address] [place] [address] Phone: tel: fax: [address] Phone: tel: fax: Referral ID Status Reason Start Date Expiration Date Visits Re quested Visits Authorized [id number] Closed 03/16/2024 03/16/2025 1 1 Encounter Details Date Type Department Care Team (Late Contact Info) Description 03/12/2024 Orders Only [facility] [address] [place] [address] Diann Ramirez MD [address] [place] [address] Microcytic anemia (Primary Dx); Vitamin D deficiency; [...] Info) Description 12/20/2024 2:00 PM EST Telemedicine [facility] [address] [place] [address] Naomi Reyes, RN [address] [place] [address] 02/15/2025 1:30 PM EDT Office Visit [facility] [address] [place] [address] Diann Ramirez MD [address] [place] [address] Scheduled Orders Name Type Priority Associated Diagnoses [...] EDT Narrative 03/24/2024 3:35 PM EDT ? [facility] ?[address] ?[place] [address] ? CT Scan Report ? Signed ? Patient: Stopa,Luc J ?MR#: [id number] ?? 78 ? : 1980 ?Acct:[id number] ? Age/Sex: 43 / M ?ADM Date: 03/24/24 ? Loc: HO.ED ? Attending Dr: ? Ordering Physician: Phani Gamino DO ?? Date of Service: 03/24/24 ?? Procedure(s): CT head/brain wo IV con ?? Accession Number(s): [id number] ? cc: Diann Ramirez MD; Phani Gamino [...] 1531 ? DD/ 1423 ? TD/TT: ? Transport Nurse: CARMEN ? Procedure Note Donotuseinterpreter, Image - 03/24/[address] [address] [address] Scan Report Signed Patient: Luc Erickson JMR#: [id number] [birth year] : 1980Acct:[id number] Age/Sex: 43 / MADM Date: 03/24/24 Loc: HO.ED Attending Dr: Ordering Physician: Phani Gamino DO Date of Service: 03/24/24 Procedure(s): CT head/brain wo IV con Accession Number(s): [id number] cc: Diann Ramirez MD; Phani Gamino DO [...] in OV> 03/24/24 1531 DD/ 1423 TD/TT: Transport Nurse: CARMEN [facility] External Provider IMG CT PROCEDURES Final Result * XR Chest 2 Views (03/24/2024 2:00 PM EDT) Anatomical Region Laterality Modality Chest Radiographic Lacey ging 03/24/2024 2:00 PM EDT Narrative 03/24/2024 3:11 PM EDT ? [facility] ?[address] ?[place] [address] ?XRay Report ? Signed ? Patient: Hiral Ericksonhan J ?MR#: [id number] ?? 78 ? : 1980 ?Acct:[id number] ? Age/Sex: 43 / M ?ADM Date: 03/24/24 ? Loc: HO.ED ? Attending Dr: ? Ordering Physician: Phani Gamino DO ?? Date of Service: 03/24/24 ?? Procedure(s): XR chest 2V ?? Accession Number(s): [id number] ? cc: Diann Ramirez MD; Phani Gamino [...] 1507 ? DD/ 1400 ? TD/TT: ? Transport Nurse: ? Procedure Note Colt Avendaño - 03/24/2024 [facility] [address] [facility] [address] XRay Report Signed Patient: Luc Erickson JMR#: [id number] [birth year] : 1980Acct:[id number] Age/Sex: 43 / MADM Date: 03/24/24 Loc: HO.ED Attending Dr: Ordering Physician: Phani Gamino DO Date of Service: 03/24/24 Procedure(s): XR chest 2V Accession Number(s): [id number] cc: Diann Ramirez MD; Phani Gamino DO [...] in OV> 03/24/24 1507 DD/ 1400 TD/TT: Transport Nurse: [facility] External Provider IMG XR PROCEDURES Final Result * Tick-borne Disease, Acute Molecular Panel (03/24/2024 12:15 PM EDT) Babesia microti DNA, Real Time PCR NOT DETECTED NOT DETECTED [facility] Comment:This test was develo ped and its analytical performancecharacteristics have been determined by [email or web address]. It has not been cleared or approved by theFDA. This assay has been validated pursuant to the CLIAregulations and is used for clinical purposes.THIS TEST WAS PERFORMED AT:[employer] [place] [phone] MEMBRENO MD Ehrlichia chaffensis DNA Real Time PCR NOT DETECTED NOT DETECTED [facility] Comment:This test was develo ped and its analytical performancecharacteristics have been determined by [email or web address]. It has not been cleared or approved by theFDA. This assay has been validated pursuant to the CLIAregulations and is used for clinical purposes.THIS TEST WAS PERFORMED AT:[employer] [address] [phone] MEMBRENO MD Anaplasma phagocytophilum DNA, QL Real Time PCR NOT DETECTED NOT DETECTED [facility] Comment:This test was develo ped and its analytical performancecharacteristics have been determined by [email or web address]. It has not been cleared or approved by theFDA. This assay has been validated pursuant to the CLIAregulations and is used for clinical purposes. Borrelia Species DNA, Ql Real Time PCR NOT DETECTED NOT DETECTED [facility] Comment:This test was develo ped and its analytical performancecharacteristics have been determined by [email or web address]. It has not been cleared or approved by theFDA. This assay has been validated pursuant to the CLIAregulations and is used for clinical purposes.For additional information, please refer [email or web address].Fon/faq/[email or web address](This link is being provided for informational/educational purposes only.)THIS TEST WAS PERFORMED AT:[employer] [address] [phone] MEMBRENO MD Borrelia Miyamotoi DNA, Ql Real Time PCR NOT DETECTED NOT DETECTED [facility] Comment:This test detects bu t does not distinguish betweenB. miyamotoi and B. hermsii.This test was developed and its analytical performancecharacteristics have been determined by [email or web address]. It has not been cleared or approved by theFDA. This assay has been validated pursuant to the CLIAregulations and is used for clinical purposes.THIS TEST WAS PERFORMED AT:[employer] [address] [phone] MEMBRENO MD Comment SEE NOTE [facility] Comment:A negative result do es not exclude Borrelia infectionas the concentration of the organism in blood may be lowor non-existent in patients with Lyme disease, and maydepend on timing of specimen collection from onset ofsymptoms. Clinical correlation is recommended andadditional studies such as serologic testing may beindicated.THIS TEST WAS PERFORMED AT:[employer] [address] [phone] MEMBRENO MD 03/24/2024 12:1 5 PM EDT 03/24/2024 12:19 PM EDT Generic External Data Provider LAB BLOOD ORDERAB LES Final Result Performing Organization Address [facility] Co de Phone Number [facility] [address] [place] [phone] * Slide Review (03/24/2024 12:15 PM EDT) Slide Review VERIFIED [facility] 03/24/2024 12:1 5 PM EDT 03/24/2024 12:19 PM EDT us Generic External Data Provider LAB BLOOD ORDERAB LES Final Result Performing Organization Address [facility] Phone Number [facility] [address] [place] [phone] * (ABNORMAL) CBC auto differential (03/24/2024 12:15 PM EDT) White Blood Count 8.3 4.8 - 10.8 X10*3/uL [facility] Red Blood Count 4.86 4.60 - 5.80 X10*6/uL [facility] Hemoglobin 14.0 14.0 - 18.0 g/dl [facility] Hematocrit 41.0(L) 42.0 - 52.0 % [facility] Mean Corpuscular Volume 84.4 80.0 - 98.0 fL [facility] Mean Corpuscular Hemoglobin 28.8 27.0 - 33.0 pg [facility] Mean Corpuscular HGB Conc 34.1 31.0 - 36.0 g/dl [facility] Red Cell Distribution Width 12.2 11.0 - 16.0 % [facility] Platelet Count 122(L) 160 - 400 X10*3/uL [facility] Comment:Confirmed by smear. Mean Platelet Volume 10.8 9.4 - 12.4 fL [facility] Neutrophils Percent Auto 62.4 45 - 73 % [facility] Imm Gran Pct Auto 0.7(H) 0.0 - 0.4 % [facility] Lymphocytes Percent Auto 27.4 20 - 40 % [facility] Monocytes Percent Auto 5.6 2 - 11 % [facility] Eosinophils Percent Auto 3.3 0 - 4 % [facility] Basophils Percent Auto 0.6 0 - 2 % [facility] NRBC Pct Auto 0.0 0.0 - 0.2 /100WBC [facility] Neutrophils Absolute Auto 5.2 2.0 - 8.3 x10*3/uL [facility] Imm Gran Abs Auto 0.06(H) 0.00 - 0.03 X10*3/uL [facility] Lymphocytes Absolute Auto 2.3 1.2 - 4.9 X10*3/uL [facility] Monocytes Absolute Auto 0.5 0.1 - 1.2 X10*3/uL [facility] Eosinophils Absolute Auto 0.3 0.0 - 0.4 X10*3/uL [facility] Basophils Absolute Auto 0.1 0.0 - 0.2 X10*3/uL [facility] NRBC Abs Auto 0.000 0.0 - 0.012 X10*3/uL [facility] 03/24/2024 12:1 5 PM EDT 03/24/2024 12:19 PM EDT us Generic External Data Provider LAB BLOOD ORDERAB LES Edited Result - Final [facility] [address] [place] [address] [phone] * TSH with Reflex to Free T4 (03/24/2024 12:15 PM EDT) TSH reflex Free T4 1.53 0.32 - 4.0 uIU/mL [facility] 03/24/2024 12:1 5 PM EDT 03/24/2024 12:19 PM EDT Generic External Data Provider LAB BLOOD ORDERAB LES Final Result Performing Organization Address [facility]/ZIP Co de Phone Number [facility] [address] [place] [phone] * Ferritin (03/24/2024 12:15 PM EDT) Ferritin 109 20 - 250 ng/mL [facility] 03/24/2024 12:1 5 PM EDT 03/24/2024 12:19 PM EDT Generic External Data Provider LAB BLOOD ORDERAB LES Final Result Performing Organization Address [facility] Co de Phone Number [facility] [address] [place] [phone] * High Sensitivity Troponin I (03/24/2024 12:15 PM EDT) TROPONIN I HIGH SENSITIVITY <2.7 <3.5 - 35.0 ng/L [facility] Comment:The Cha high sens itivity Troponin-I results should beused in conjunction with other diagnostic information suchas ECG, clinical observations and information, and patientsymptoms to aid in the diagnosis of OR. 03/24/2024 12:1 5 PM EDT 03/24/2024 12:19 PM EDT Generic External Data Provider LAB BLOOD ORDERAB LES Final Result Performing Organization Address [facility] Co de Phone Number [facility] [address] [place] [phone] * Magnesium (03/24/2024 12:15 PM EDT) Magnesium 1.9 1.6 - 2.6 mg/dL [facility] 03/24/2024 12:1 5 PM EDT 03/24/2024 12:19 PM EDT us Generic External Data Provider LAB BLOOD ORDERAB LES Final Result [facility] [address] [place] [phone] [phone] * (ABNORMAL) Comprehensive Metabolic Panel (03/24/2024 12:15 PM EDT) Sodium 140 135 - 145 mmol/L [facility] Potassium 3.6 3.3 - 5.1 mmol/L [facility] Chloride 106 96 - 108 mmol/L [facility] Carbon Dioxide 27 22 - 29 mmol/L [facility] Anion Gap 11(L) 12 - 20 [facility] Urea Nitrogen (BUN) 8(L) 9 - 16 mg/dL [facility] Creatinine, Serum 0.84 0.5 - 1.4 mg/dL [facility] Creatinine Clr Calc Pharmacy 145.2 [facility] Comment:eGFR (calculated fro m the MDRD study equation) and eCrCl(calculated from the Cockcroft-Gault equation) are based ondifferent parameters and may not yield comparable results.If eCrCl result is absurd, please check patient'sheight/weight. Estimated Glomerular Filt Rate >60 [facility] Comment:NOTE: For -Am erican individuals, multiply the result by 1.210.Chronic Kidney Disease: Estimated GFR < 60 mL/min/1.80i3Phdcpz Kidney Disease: Estimated GFR < 15 mL/min/1.73m2 Glucose 113 60 - 115 mg/dL [facility] Calcium 9.3 8.4 - 10.2 mg/dL [facility] Bilirubin, Total 0.3 0.0 - 1.0 mg/dL [facility] Aspartate Amino Transferase 15 5 - 37 U/L [facility] Alanine Aminotransferase 13 0 - 40 U/L [facility] Total Protein 7.5 6.5 - 8.0 g/dL [facility] Albumin Level 4.3 3.5 - 5.0 g/dL [facility] Alkaline Phosphatase 79 39 - 117 U/L [facility] 03/24/2024 12:1 5 PM EDT 03/24/2024 12:19 PM EDT Generic External Data Provider LAB BLOOD ORDERAB LES Final Result Performing Organization Address [facility] Co de Phone Number [facility] [address] [place] [phone] * Prothrombin Time-INR (03/24/2024 12:15 PM EDT) Prothrombin Time 12.4 11.1 - 13.3 SEC [facility] INTERNATIONAL NORM RATIO 1.0 0.9 - 1.1 [facility] Comment:INTERNATIONAL NORMAL IZED RATIO (INR) REFERENCE [...] Final Result Performing Organization Address [facility] de Phone Number [facility] [address] [place] [phone] [phone] * (ABNORMAL) Reticulocyte Count (03/16/2024 11:56 AM EDT) Reticulocytes Absolute 0.127(H) 0.026 - 0.095 X10*6/uL [facility] Immature Retic Fraction 15.3(H) 2.3 - 13.4 % [facility] Retic HGB Equivalent 33.6 30.0 - 35.0 pg [facility] Reticulocyte Percent 2.8(H) 0.5 - 1.8 % [facility] Blood Venous blood specimen / Unknown 03/16/2024 11:56 AM EDT 03/16/2024 2:40 PM EDT us Diann Ramirez MD LAB BLOOD ORDERABLES Final Result Performing Organization Address [facility] Co de Phone Number [facility] [address] [place] [phone] * Ferritin (03/16/2024 11:56 AM EDT) Ferritin 118 20 - 250 ng/mL [facility] Blood Venous blood specimen / Unknown 03/16/2024 11:56 AM EDT 03/16/2024 2:42 PM EDT us Diann Ramirez MD LAB BLOOD ORDERABLES Final Result Performing Organization Address [facility] Co de Phone Number [facility] [address] [place] [phone] * Iron And Total Iron Binding Capacity (03/16/2024 11:56 AM EDT) Iron 55 45 - 160 mcg/dL [facility] Total Iron Binding Capacity 261 228 - 428 mcg/dL [facility] Percent Iron Saturation 21 15 - 50 % [facility] Unsaturated Iron Binding 206 ug/dL [facility] Blood Venous blood specimen / Unknown 03/16/2024 11:56 AM EDT 03/16/2024 2:42 PM EDT us Diann Ramirez MD LAB BLOOD ORDERABLES Final Result Performing Organization Address [facility] Co de Phone Number [facility] [address] [place] [phone] documented in this encounter Visit Diagnoses Diagnosis Microcytic anemia- Primary Unspecified iron deficiency anemia Vitamin D deficiency Primary hypertension Unspecified essential hypertension Numbness of right foot Numbness of left foot Bicytopenia documented in this encounter Additional Health Concerns Assessment Noted Time PHQ-9 Depression Total Score: 1 10/31/19 23 3:59 PM EST documented as of this encounter Care Teams Child And Youth Program Assistant Relationship Specialty Start Date End Date Diann Ramirez MD [address] [place] [address] PCP - General Internal Medicine 07/16/12 documented as of this encounter
--- OUTSIDE RECORDS SUMMARY | 2024-11-26 12:05 | XMS_ITS | Encounter Summary ---
Author Organization [employer] Address [address] [facility] 7t [place] [address] Care Team Providers Care Cyber Engineer Name Role Phone Diann Ramirez MD Primary Care Provider [phone] Encounter Details Date Type Department Care Team (Late Contact Info) Description 10/18/2022 Orders Only [facility] MEDICINE [address] [place] [address] Diann Ramirez MD [address] [place], [place] [phone] Acute cough; Bronchospasm Social History Tobacco Use [...] Info) Description 12/20/2024 2:00 PM EST Telemedicine [facility] MED & PEDS [address] [place], [place] [phone] Naomi Reyes, TABATHA [address] [place], [place] [phone] 02/15/2025 1:30 PM EDT Office Visit [facility] PEDS [address] [place] [address] Diann Ramirez MD [address] [place] [address] documented as of this encounter Visit Diagnoses Diagnosis Acute cough Bronchospasm Acute bronchospasm documented in this encounter Care Teams Cyber Engineer Relationship Specialty Start Date End Date Diann Ramirez MD [address] [place] [address] PCP - General Internal Medicine 07/16/12 documented as of this encounter
--- OUTSIDE RECORDS SUMMARY | 2024-11-26 12:05 | XMS_ITS | Encounter Summary ---
Author Organization [employer] Address [address] [facility] 7 [place] [address] Care Team Providers Care Metal Fitter Name Role Phone Diann Ramirez MD Primary Care Provider [phone] Reason for Visit * Reason Onset Date Comments Med Refill 07/28/2024 Encounter Details Date Type Department Care Team (Late st Contact Info) Description 07/28/2024 Telephone [facility] MEDICINE [address] [place] [address] Diann Ramirez MD [address] [place], [place] [phone] Med Refill Social History Tobacco Use Types [...] 1 MG tablet To be sent to: [id number] - [place] - [address] [facility] documented in this encounter Plan of Treatment Upcoming Encounters Date Type Department Care Team (Late st Contact Info) Description 12/20/2024 2:00 PM EST Telemedicine [facility] MED & PEDS [address] [place] [address] Naomi Reyes RN [address] [place] [address] 02/15/2025 1:30 PM EDT Office Visit [facility] [address] [place] [address] Diann Ramirez MD [address] [place] [address] documented as of this encounter Visit Diagnoses Not on filedocumented in this encounter Additional Health Concerns Assessment Noted Time PHQ-9 Depression Total Score: 4 03/20/20 24 9:12 AM EDT documented as of this encounter Care Teams Metal Fitter Relationship Specialty Start Date End Date Diann Ramirez MD [address] [place] [address] PCP - General Internal Medicine 07/16/12 documented as of this encounter
--- OUTSIDE RECORDS SUMMARY | 2024-11-26 12:05 | XMS_ITS | Encounter Summary ---
Author Organization [employer] Address [address] [place] [address] 7 [place] [address] Care Team Providers Care Director Of Billing Name Role Phone Diann Ramirez MD Primary Care Provider [phone] Reason for Referral * Consultation (Routine) - Closed Specialty Diagnoses / Procedures Referred By Contcary t Referred To Contact Behavioral Health Diagnoses Anxiety Dainn Ramirez MD [address] [place] [address] Phone: tel: fax: Referral ID Status Reason Start Date Expiration Date V isits Requested Visits Authorized [id number] Closed Specialty Services Required 03/30/2024 03/30/2025 1 1 Encounter Details Date Type Department Care Team ([facility] Contact Info) Description 03/30/2024 Orders Only [facility] MED & PEDS [address] [place] [address] Diann Ramirez MD [address] [place] [address] Anxiety (Primary Dx) Social History Tobacco Use [...] Info) Description 12/20/2024 2:00 PM EST Telemedicine [facility] MED & PEDS [address] [place] [address] Naomi Reyes RN [address] [place] [address] 02/15/2025 1:30 PM EDT Office Visit [facility] MED [facility] PEDS [address] [place] [address] Dainn Ramirez MD [address] [place] [address] Scheduled Referrals Name Type Priority Associated Diagnoses [...] of this encounter Care Teams Director Of Billing Relationship Specialty Start Date End Date Diann Ramirez MD [address] [place] [phone] PCP - General Internal Medicine 07/16/12 documented as of this encounter
--- OUTSIDE RECORDS SUMMARY | 2024-11-26 12:05 | XMS_ITS | Encounter Summary ---
Author Organization [employer] Address [address] [facility] 7 [place] [address] Care Team Providers Care Lung Puller Name Role Phone Diann Ramirez MD Primary Care Provider [phone] Reason for Visit * Reason Onset Date Comments Appointment Request 01/13/2024 Encounter Details Date Type Department Care Team (Late st Contact Info) Description 01/13/2024 Telephone [facility] MEDICINE [address] [place] [address] Diann Ramirez MD [address] [place] [address] Appointment Request Social History Tobacco Use Types [...] Info) Description 12/20/2024 2:00 PM EST Telemedicine [facility] MED & PEDS [address] [place] [address] Naomi Reyes, TABATHA [address] [place] [address] 02/15/2025 1:30 PM EDT Office Visit [facility] MED [facility] PEDS [address] [place] [address] Diann Ramirez MD [address] [place] [address] documented as of this encounter Visit Diagnoses Not on filedocumented in this encounter Additional Health Concerns Assessment Noted Time PHQ-9 Depression Total Score: 1 10/31/19 23 3:59 PM EST documented as of this encounter Care Teams Lung Puller Relationship Specialty Start Date End Date Diann Ramirez MD [address] [place] [address] PCP - General Internal Medicine 07/16/12 documented as of this encounter
--- OUTSIDE RECORDS SUMMARY | 2024-11-26 12:05 | XMS_ITS | Encounter Summary ---
Author Organization [employer] Address [address] [facility] 7 [place] [address] Care Team Providers Care Whip Operator Name Role Phone Diann Ramirez MD Primary Care Provider [phone] Reason for Visit * Reason Onset Date Comments Med Refill 11/24/2024 Encounter Details Date Type Department Care Team (Late st Contact Info) Description 11/24/2024 Refill [facility] MEDICINE [address] [place] [address] Diann Ramirez MD [address] [place] [address] Anxiety Social History Tobacco Use Types Packs/Day [...] 1 MG tablet To be sent to: [id number] - [place] - [facility] documented in this encounter Plan of Treatment Upcoming Encounters Date Type Department Care Team (Late st Contact Info) Description 12/20/2024 2:00 PM EST Telemedicine [facility] MED & PEDS [address] [place] [address] Naomi Reyes RN [address] [place] [address] 02/15/2025 1:30 PM EDT Office Visit [facility] PEDS [address] [place] [address] Diann Ramirez MD [address] [place] [address] documented as of this encounter Visit Diagnoses Diagnosis Anxiety Anxiety state, unspecified documented in this encounter Additional Health Concerns Assessment Noted Time PHQ-9 Depression Total Score: 4 03/20/20 24 9:12 AM EDT documented as of this encounter Care Teams Whip Operator Relationship Specialty Start Date End Date Diann Ramirez MD [address] [place] [phone] PCP - General Internal Medicine 07/16/12 documented as of this encounter
--- OUTSIDE RECORDS SUMMARY | 2024-11-26 12:05 | XMS_ITS | Encounter Summary ---
Author Organization [employer] Address 75 [facility] 7 [place] [address] Care Team Providers Care Potato Peeler Name Role Phone Diann Ramirez MD Primary Care Provider +1 [phone] Reason for Visit * Reason Onset Date Comments Appointment Request 06/11/2024 Encounter Details Date Type Department Care Team (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 Please contact pt at [phone]. documented in this encounter Plan of Treatment Upcoming Encounters Date Type Department Care Team (Late st Contact Info) Description 12/20/2024 2:00 PM EST Telemedicine [facility] MED & PEDS [address] [place] [address] Naomi Reyes RN 505 [place] [address] 02/15/2025 1:30 PM EDT Office Visit [facility] [address] [place] [address] Diann Ramirez MD 505 [place] [address] documented as of this encounter Visit Diagnoses Not on filedocumented in this encounter Additional Health Concerns Assessment Noted Time PHQ-9 Depression Total Score: 4 03/20/20 24 9:12 AM EDT documented as of this encounter Care Teams Potato Peeler Relationship Specialty Start Date End Date Diann Ramirez MD 505 [place] [address] PCP - General Internal Medicine 9/27/12 documented as of this encounter
--- OUTSIDE RECORDS SUMMARY | 2024-11-26 12:05 | XMS_ITS | Encounter Summary ---
Author Organization [employer] Address 75 [facility] 7 [place] [address] Care Team Providers Care Bag Sorter Name Role Phone Diann Ramirez MD Primary Care Provider +1 [phone] Reason for Visit * Reason Onset Date Comments Med Refill 03/18/2023 Encounter Details Date Type Department Care Team (Late st Contact Info) Description 03/18/2023 Telephone [facility] MEDICINE [address] [place] [address] Diann Ramirez MD 505 [place], [place] [phone] Med Refill Social History Tobacco Use Types [...] [facility] MED [facility] PEDS 505 [place] [address] Naomi Reyes RN 505 [place] [address] 02/15/2025 1:30 PM EDT Office Visit [facility] MED [facility] PEDS 505 [place] [address] Diann Ramirez MD 505 [place] [address] documented as of this encounter Visit Diagnoses Not on filedocumented in this encounter Additional Health Concerns Assessment Noted Time PHQ-9 Depression Total Score: 1 10/31/19 23 3:59 PM EST documented as of this encounter Care Teams Bag Sorter Relationship Specialty Start Date End Date Diann Ramirez MD [address] [place], [place] [address] [address] PCP - General Internal Medicine 07/16/12 documented as of this encounter
== END 2024-11-26 12:03 | disposition home or self-care (01) ==
PROVIDERS: PCP Internal Medicine; Visit Provider Physician Assistant
DX: S82.892A Other fracture of left lower leg, initial encounter for closed fracture (principal); Z87.81 Personal history of (healed) traumatic fracture
CPT/HCPCS: 29515; 99024

== ENCOUNTER 2024-11-26 10:59 | Outpatient (REF) | payer MEDICAID, SELFPAY ==
--- NOTE | ~2024-11-26 | XR_ITS ---
EXAMINATION: XR ANKLE 3 OR MORE VIEWS LEFT HISTORY: M25.579 - Pain in unspecified ankle and joints of unspecified foot COMPARISON: Comparison is made with the prior examination dated 11/17/2024. FINDINGS: Three views of the left ankle are submitted. Osseous mineralization is normal. The patient is status post internal fixation of the previously seen fracture of the distal fibula with a sideplate and multiple orthopedic screws. Alignment is anatomic. A button is seen along the medial malleolus. The joint spaces are preserved. There is a small plantar calcaneal spur. The soft tissues are unremarkable. XR/XR ankle LT min 3V IMPRESSION: Internal fixation of the previously seen oblique fracture of the distal fibula. Electronically signed by: Jovany Arambula MD 11/26/2024 11:33 AM RAMONA
== END 2024-11-26 11:00 | disposition home or self-care (01) ==
LOC: HO.HOSX 10:59
PROVIDERS: PCP Internal Medicine
DX: M25.572 Pain in left ankle and joints of left foot (principal); S82.892D Other fracture of left lower leg, subsequent encounter for closed fracture with routine healing; Z98.890 Other specified postprocedural states
CPT/HCPCS: 29515; 73610; 99212

== ENCOUNTER → 2024-11-26 11:03 | Outpatient (BNV) | payer MEDICAID, SELFPAY | PROVIDERS: PCP Internal Medicine; Visit Provider Radiology Diagnostic Radiology | DX: M25.572 Pain in left ankle and joints of left foot (principal) | CPT/HCPCS: 73610 ==

== ENCOUNTER 2024-12-02 12:56 | Outpatient (AMB) | payer MEDICAID, SELFPAY ==
--- OUTSIDE RECORDS SUMMARY | 2024-12-02 13:00 | XMS_ITS | Encounter Summary ---
Author Organization [employer] Address 75 [facility] 7 [place] [address] Care Team Providers Care Director Of Primary Name Role Phone Diann Ramirez MD Primary Care Provider [phone] Reason for Visit * Reason Onset Date Comments Referral 08/09/2024 Encounter Details Date Type Department Care Team (Late st Contact Info) Description 08/09/2024 Telephone [facility] MEDICINE [address] [place] [address] Diann Ramirez MD 505 [place], [place] [phone] Referral Social History Tobacco Use Types Packs/Day [...] Jimenez RN - 08/14/2024 12:07 PM EDT [employer] message informing pt referral for Neuro was sent to [facility] and pt should get a call [...] Description 12/20/2024 2:00 PM EST Telemedicine [facility]ED[facility] [address] [place] [address] Naomi Reyes RN 505 [place] [address] 02/15/2025 1:30 PM EDT Office Visit [facility] [address] [place] [address] Diann Ramirez MD 505 [place] [address] documented as of this encounter Visit Diagnoses Not on filedocumented in this encounter Additional Health Concerns Assessment Noted Time PHQ-9 Depression Total Score: 4 03/20/20 24 9:12 AM EDT documented as of this encounter Care Teams Director Of Primary Relationship Specialty Start Date End Date Diann Ramirez MD 505 [place] [address] PCP - General Internal Medicine 07/16/12 documented as of this encounter
--- OUTSIDE RECORDS SUMMARY | 2024-12-02 13:00 | XMS_ITS | Encounter Summary ---
Author Organization [employer] Address 75 [facility] 7 [place] [address] Care Team Providers Care Central Office Worker Name Role Phone Diann Ramirez MD Primary Care Provider [phone] Reason for Visit * Reason Onset Date Comments Appointment Request 06/11/2024 Encounter Details Date Type Department Care Team ([facility] st Contact Info) Description 06/11/2024 Telephone [facility] MEDICINE 230 [place] [address] Diann Ramirez MD [address] [place] [address] Appointment Request Social History Tobacco Use Types [...] Tc from pt calling in regards to WET SUIT GLUER visit from 06/18 that was canceled and is requesting to reschedule. Please contact pt at [phone]. documented in this encounter Plan of Treatment Upcoming Encounters Date Type Department Care Team (Late st Contact Info) Description 12/20/2024 2:00 PM EST Telemedicine [facility] MED & PEDS [address] [place] [address] Naomi Reyes RN 505 [place] [address] 02/15/2025 1:30 PM EDT Office Visit [facility] MED [facility]ED[facility] [address] [place] [address] Diann Ramirez MD [address] [place] [address] documented as of this encounter Visit Diagnoses Not on filedocumented in this encounter Additional Health Concerns Assessment Noted Time PHQ-9 Depression Total Score: 4 03/20/20 24 9:12 AM EDT documented as of this encounter Care Teams Central Office Worker Relationship Specialty Start Date End Date Diann Ramirez MD [address] [place] [address] PCP - General Internal Medicine 9/27/12 documented as of this encounter
--- OUTSIDE RECORDS SUMMARY | 2024-12-02 13:00 | XMS_ITS | Encounter Summary ---
Author Organization [employer] Address [address] [place] [address] Care Team Providers Care Hhas Name Role Phone Diann Ramirez MD Primary Care Provider [phone] Reason for Visit * Reason Onset Date Comments Appointment Request 01/06/2023 Encounter Details Date Type Department Care Team (Late st Contact Info) Description 01/06/2023 Telephone [facility] [address] [place] [address] Diann Ramirez MD [address] [place] [address] Appointment Request Social History Tobacco Use Types [...] requesting to r/s appt on 01/06/23 ( RN PERINATAL Televisit ) documented in this encounter Plan of Treatment Upcoming Encounters Date Type Department Care Team (Late st Contact Info) Description 12/20/2024 2:00 PM EST Telemedicine [facility] MED [facility] PED[facility] [address] [place] [address] Naomi Reyes, RN 505 [place] [address] 02/15/2025 1:30 PM EDT Office Visit [facility]ED[facility] [address] [place] [address] Diann Ramirez MD [address] [place] [address] documented as of this encounter Visit Diagnoses Not on filedocumented in this encounter Additional Health Concerns Assessment Noted Time PHQ-9 Depression Total Score: 1 10/31/19 23 3:59 PM EST documented as of this encounter Care Teams Hhas Relationship Specialty Start Date End Date Diann Ramirez MD [address] [place] [address] PCP - General Internal Medicine 07/16/12 documented as of this encounter
--- OUTSIDE RECORDS SUMMARY | 2024-12-02 13:00 | XMS_ITS | Continuity of Care Document ---
Author Organization [facility] Address [address] [facility], 3[address] Floor, [address] [place] [address]- Care Team Providers Care Cook Sauce Name Role Phone James LALA, Diann Primary [id number]s): 10/29/24 - 11/28/24 [facility] [address] [place] [address] 3rd Floor, [address] [place] [address] Encounter Type: Triage Allergies, Adverse Reactions, Alerts [...] 0 Refills, Maintenance, 01/06/20 6:10:00 PM EDT, [id number], apply small amount to ulcer three times [...] Team Personnel Name: Diann Ramirez MD Position: [facility] Outreach Member Role: PCP Address: [address] [place] [address] Telecom: Care Team Related Persons Name: SHRAVAN CORBIN Name: JEF CORBIN Insurance Providers Guarantor name: EDUARDO Health Plan Information #: 1 Payer: [place] Member Number: NA Policy Number: NA Group Number: NA
--- OUTSIDE RECORDS SUMMARY | 2024-12-02 13:00 | XMS_ITS | Encounter Summary ---
Author Organization [employer] Address 75 [facility] 7 [place] [address] Care Team Providers Care Auto Collision Repair Instructor Name Role Phone Diann Ramirez MD Primary Care Provider [phone] [phone] Reason for Visit * Reason Onset Date Comments Med Refill 07/28/2024 Encounter Details Date Type Department Care Team (Late st Contact Info) Description 07/28/2024 Telephone [facility] MEDICINE 230 [place] [address] Diann Ramirez MD 505 [place], [place] [phone] Med Refill Social History Tobacco Use Types [...] 1 MG tablet To be sent to: [id number] [place] - [facility] documented in this encounter Plan of Treatment Upcoming Encounters Date Type Department Care Team (Late st Contact Info) Description 12/20/2024 2:00 PM EST Telemedicine [facility] MED & PEDS [address] [place] [address] Naomi Reyes RN [address] [place] [address] 02/15/2025 1:30 PM EDT Office Visit [facility] MED & PEDS 505 [place] [address] Diann Ramirez MD [address] [place] [address] documented as of this encounter Visit Diagnoses Not on filedocumented in this encounter Additional Health Concerns Assessment Noted Time PHQ-9 Depression Total Score: 4 03/20/20 24 9:12 AM EDT documented as of this encounter Care Teams Auto Collision Repair Instructor Relationship Specialty Start Date End Date Diann Ramirez MD 505 [place] [address] PCP - General Internal Medicine 07/16/12 documented as of this encounter
--- OUTSIDE RECORDS SUMMARY | 2024-12-02 13:00 | XMS_ITS | Encounter Summary ---
Author Organization [employer] Address 75 [facility] 7t [place] [address] Care Team Providers Care Geophysical Prospector Name Role Phone Diann Ramirez MD Primary Care Provider [phone] Encounter Details Date Type Department Care Team (Late st Contact Info) Description 05/18/2024 Orders Only [facility] MED & PEDS [address] [place], [place] [phone] Provider, MD Shar Social History Tobacco Use [...] Telemedicine [facility] MED & PEDS [address] [place] [address] Naomi Reyes RN 505 [place] [address] 02/15/2025 1:30 PM EDT Office Visit [facility] [address] [place] [address] Diann Ramirez MD [address] [place] [address] documented as of this encounter Procedures Procedure [...] documented as of this encounter Care Teams Geophysical Prospector Relationship Specialty Start Date End Date Diann Ramirez MD [address] [place] [address] PCP - General Internal Medicine 07/16/12 documented as of this encounter
--- OUTSIDE RECORDS SUMMARY | 2024-12-02 13:00 | XMS_ITS | Encounter Summary ---
Author Organization [employer] Address 75 [facility] 7 [place] [address] Care Team Providers Care Tool Crib Manager Name Role Phone Diann Ramirez MD Primary Care Provider [phone] Reason for Visit * Reason Onset Date Comments Appointment Request 06/17/2024 Encounter Details Date Type Department Care Team ([facility] st Contact Info) Description 06/17/[address] [facility] MEDICINE [address] [place] [address] Diann Ramirez MD [address] [place] [address] Appointment Request Social History Tobacco Use Types [...] would like a sooner appt than what proposal writer offered documented in this encounter Plan of Treatment Upcoming Encounters Date Type Department Care Team (Late st Contact Info) Description 12/20/2024 2:00 PM EST Telemedicine [facility] MED & PEDS [address] [place] [address] Naomi Reyes RN 505 [place] [address] 02/15/2025 1:30 PM EDT Office Visit [facility] MED & PEDS [address] [place] [address] Diann Ramirez MD [address] [place] [address] documented as of this encounter Visit Diagnoses Not on filedocumented in this encounter Additional Health Concerns Assessment Noted Time PHQ-9 Depression Total Score: 4 03/20/20 24 9:12 AM EDT documented as of this encounter Care Teams Tool Crib Manager Relationship Specialty Start Date End Date Diann Ramirez MD [address] [place] [address] PCP - General Internal Medicine 07/16/12 documented as of this encounter
--- OUTSIDE RECORDS SUMMARY | 2024-12-02 13:00 | XMS_ITS | Encounter Summary ---
Author Organization [employer] Address 75 [facility] 7 [place] [address] Care Team Providers Care Education Director Name Role Phone Diann Ramirez MD Primary Care Provider +[phone] Reason for Visit * Reason Onset Date Comments Med Refill 03/18/2023 Encounter Details Date Type Department Care Team (Late st Contact Info) Description 03/18/2023 Telephone [facility] MEDICINE 230 [place] [address] Diann Ramirez MD [address] [place], [place] [phone] Med Refill Social History Tobacco Use Types [...] Info) Description 12/20/2024 2:00 PM EST Telemedicine [facility] MED & PEDS [address] [place] [address] Naomi Reyes RN 505 [place] [address] 02/15/2025 1:30 PM EDT Office Visit [facility] MED & PEDS [address] [place] [address] Diann Ramirez MD [address] [place] [address] documented as of this encounter Visit Diagnoses Not on filedocumented in this encounter Additional Health Concerns Assessment Noted Time PHQ-9 Depression Total Score: 1 10/31/19 23 3:59 PM EST documented as of this encounter Care Teams Education Director Relationship Specialty Start Date End Date Diann Ramirez MD [address] [place], [place] [address], [place] [address] PCP - General Internal Medicine 07/16/12 documented as of this encounter
--- OUTSIDE RECORDS SUMMARY | 2024-12-02 13:00 | XMS_ITS | Encounter Summary ---
Author Organization [employer] Address 75 [facility] 7 [place] [address] Care Team Providers Care Expediter Service Order Name Role Phone Diann Ramirez MD Primary Care Provider +[phone] Reason for Visit * Reason Onset Date Comments Med Refill 05/31/2024 Encounter Details Date Type Department Care Team (Late st Contact Info) Description 05/31/2024 Telephone [facility] MEDICINE [address] [place] [address] Diann Ramirez MD [address] [place] [address] Med Refill Social History Tobacco Use Types [...] 1 MG tablet To be sent to: [id number] - [place] - [facility] documented in this encounter Plan of Treatment Upcoming Encounters Date Type Department Care Team (Late st Contact Info) Description 12/20/2024 2:00 PM EST Telemedicine [facility] MED & PEDS 505 [place] [address] Naomi Reyes RN 505 [place] [address] 02/15/2025 1:30 PM EDT Office Visit [facility] MED & PEDS 505 [place] [address] Diann Ramirez MD 505 [place] [address] documented as of this encounter Visit Diagnoses Not on filedocumented in this encounter Additional Health Concerns Assessment Noted Time PHQ-9 Depression Total Score: 4 03/20/20 24 9:12 AM EDT documented as of this encounter Care Teams Expediter Service Order Relationship Specialty Start Date End Date Diann Ramirez MD [address] [place] [address] PCP - General Internal Medicine 07/16/12 documented as of this encounter
--- OUTSIDE RECORDS SUMMARY | 2024-12-02 13:00 | XMS_ITS | Encounter Summary ---
Author Organization [employer] Address [address] [facility] 7t [place] [address] Care Team Providers Care Dress Marker Name Role Phone Diann Ramirez MD Primary Care Provider [phone] Encounter Details Date Type Department Care Team (Late st Contact Info) Description 11/11/2024 Orders Only [facility] External Provider, [facility] Social History Tobacco Use Types Packs/Day [...] [facility] [address] [place] [address] Naomi Reyes RN [address] [place] [address] 02/15/2025 1:30 PM EDT Office Visit [facility] [address] [place] [address] Diann Ramirez MD [address] [place] [address] documented as of this encounter Procedures Procedure [...] EST Narrative 11/26/2024 11:36 AM EST ? [facility] ? [address] ?[place] [address] ?XRay Report ? Signed ? Patient: Stopa,Luc J ?MR#: [id number] ?? 78 ? : 1980 ?Acct:[id number] ? Age/Sex: 44 / M ?ADM Date: 11/26/24 ? Loc: HO.HOSX ? Attending Dr: Misha VELASQUEZ ? Ordering Physician: Anna Bennett PA-C ?? Date of Service: 11/26/24 ?? Procedure(s): XR ankle LT min 3V ?? Accession Number(s): [id number] ? cc: Diann Ramirez MD; Anna Bennett [...] DD/ 1103 ? TD/TT: 11/26/24 1112 ? Long Term Care Phlebotomist: ? Procedure Note Colt Avendaño - 11/26/2024 [facility] [address] [place] [address] XRay Report Signed Patient: Luc Erickson JMR#: [id number] [birth year] : 1980Acct:[id number] Age/Sex: 44 / MADM Date: 11/26/24 Loc: HO.HOSX Attending Dr: Misha VELASQUEZ Ordering Physician: Anna Bennett PA-C Date of Service: 11/26/24 Procedure(s): XR ankle LT min 3V Accession Number(s): [id number] cc: Diann Ramirez MD; Anna Bennett PA-C [...] 11/26/24 1133 DD/ 1103 TD/TT: 11/26/24 1112 Long Term Care Phlebotomist: [facility] External Provider IMG XR PROCEDURES Final Result * FL Guidance in OR (11/24/2024 2:38 PM EST) Anatomical Region Laterality Modality X-Ray Angiograph y 11/24/2024 2:38 PM EST Narrative 11/25/2024 8:58 AM EST ? [facility] ?[address] ?[place] [address] ? Fluoroscopy Report ? Signed ? Patient: Stopa,Luc J ?MR#: [id number] ?? 78 ? : 1980 ?Acct:[id number] ? Age/Sex: 44 / M ?ADM Date: 02/05/25 ? Loc: HO.SSS ? Attending Dr: Will Randolph MD ? Ordering Physician: Will Randolph MD ?? Date of Service: 11/24/24 ?? Procedure(s): FL guidance in OR ?? Accession Number(s): [id number] ? cc: Diann Ramirez MD; Will Randolph [...] DD/ 1438 ? TD/TT: 11/24/24 1527 ? Long Term Care Phlebotomist: ? Procedure Note Kateryna, Image - 11/25/[address] [address] Fluoroscopy Report Signed Patient: Luc Erickson JMR#: [id number] [birth year] : 1980Acct:[id number] Age/Sex: 44 / MADM Date: 11/24/24 Loc: HO.SSS Attending Dr: Will Randolph MD Ordering Physician: Will Randolph MD Date of Service: 11/24/24 Procedure(s): FL guidance in OR Accession Number(s): [id number] cc: Diann Ramirez MD; Will Randolph MD [...] 11/25/24 0856 DD/ 1438 TD/TT: 11/24/24 1527 Long Term Care Phlebotomist: [facility] External Provider IMG IR PROCEDURES Final Result * XR Ankle 3+ Views Left (11/15/2024 1:17 PM EST) Anatomical Region Laterality Modality Lower Extremities, Ankle Left Radiogr aphic Imaging 11/15/2024 1:17 PM EST Narrative 11/15/2024 3:30 PM EST ? [facility] ? [address] ?[place] [address] ?XRay Report ? Signed ? Patient: Luc Erickson J ?MR#: [id number] ?? 78 ? : 1980 ?Acct:[id number] ? Age/Sex: 44 / M ?ADM Date: 11/15/ ? Loc: HO.HOSX ? Attending Dr: Shreya Whelan PA-C ? Ordering Physician: Shreya Whelan PA-C ?? Date of Service: 01/27/25 ?? Procedure(s): XR ankle LT min 3V ?? Accession Number(s): [id number] ? cc: Diann Ramirez MD; Shreya Whelan [...] DD/ 1317 ? TD/TT: 11/15/24 1320 ? Long Term Care Phlebotomist: ? Procedure Note Donalan, Image - 11/15/2024 [facility] [address] [place] [address] [address] [place] [address] XRay Report Signed Patient: Luc Erickson JMR#: [id number] [birth year] : 1980Acct:[id number] Age/Sex: 44 / MADM Date: 11/15/24 Loc: [facility] Attending Dr: Shreya Whelan PA-C Ordering Physician: Shreya Whelan PA-C Date of Service: 11/15/24 Procedure(s): XR ankle LT min 3V Accession Number(s): [id number] cc: Diann Ramirez MD; Shreya Whelan PA-C [...] 11/15/24 1527 DD/ 1317 TD/TT: 11/15/24 1320 Long Term Care Phlebotomist: [facility] External Provider IMG XR PROCEDURES Final Result * XR Tibia Fibula 2 Views Left (11/11/2024 10:45 AM EST) Anatomical Region Laterality Modality Lower Extremities, Lower Leg Left Rad iographic Imaging 11/11/2024 10:4 5 AM EST Narrative 11/11/2024 11:32 AM EST ? [facility] ?[address] ?[place] [address] ?XRay Report ? Signed ? Patient: Luc Erickson ?MR#: [id number] ?? 78 ? : 1980 ?Acct:[id number] ? Age/Sex: 44 / M ?ADM Date: 11/11/24 ? Loc: HO.ED ? Attending Dr: ? Ordering Physician: Generic ED Physician ?? Date of Service: 11/11/24 ?? Procedure(s): XR tibia fibula LT 2V ?? Accession Number(s): [id number] ? cc: Diann Ramirez MD; Generic ED [...] MD ? Signed By: ?<Electronically signed by Liavn S Leela, MD in [place]> ?11/11/24 1129 ? DD/ 1045 ? TD/TT: 11/11/24 1100 ? Long Term Care Phlebotomist: MSM ? Procedure Note Donerikainterpreter, Image - 11/11/[address] [address] XRay Report Signed Patient: Luc Erickson JMR#: [id number] [birth year] : 1980Acct:[id number] Age/Sex: 44 / MADM Date: 11/11/24 Loc: HO.ED Attending Dr: Ordering Physician: Generic ED Physician Date of Service: 11/11/24 Procedure(s): XR tibia fibula LT 2V Accession Number(s): [id number] cc: Diann Ramirez MD; Generic ED Physician [...] 11/11/24 1129 DD/ 1045 TD/TT: 11/11/24 1100 Long Term Care Phlebotomist: FEMI [facility] External Provider IMG XR PROCEDURES Final Result * XR Ankle 3+ Views Left (11/11/2024 10:45 AM EST) Anatomical Region Laterality Modality Lower Extremities, Ankle Left Radiogr aphic Imaging 11/11/2024 10:4 5 AM EST Narrative 11/11/2024 11:32 AM EST ? [facility] ?[address] ?[place] [address] ?XRay Report ? Signed ? Patient: Stopa,Luc J ?MR#: [id number] ?? 78 ? : 1980 ?Acct:[id number] ? Age/Sex: 44 / M ?ADM Date: 01/23/25 ? Loc: HO.ED ? Attending Dr: ? Ordering Physician: Generic ED Physician ?? Date of Service: 11/11/24 ?? Procedure(s): XR ankle LT min 3V ?? Accession Number(s): [id number] ? cc: Diann Ramirez MD; Generic ED [...] DD/ 1045 ? TD/TT: 11/11/24 1100 ? Long Term Care Phlebotomist: MSM ? Procedure Note Colt Avendaño - 11/11/[address] [address] XRay Report Signed Patient: Luc Erickson JMR#: [id number] [birth year] : 1980Acct:[id number] Age/Sex: 44 / MADM Date: 11/11/24 Loc: HO.ED Attending Dr: Ordering Physician: Generic ED Physician Date of Service: 11/11/24 Procedure(s): XR ankle LT min 3V Accession Number(s): [id number] cc: Diann Ramirez MD; Generic ED Physician [...] 11/11/24 1129 DD/ 1045 TD/TT: 11/11/24 1100 Long Term Care Phlebotomist: FEMI [facility] External Provider IMG XR PROCEDURES Final Result documented in this encounter Visit Diagnoses Not on filedocumented in this encounter Additional Health Concerns Assessment Noted Time PHQ-9 Depression Total Score: 4 03/20/20 24 9:12 AM EDT documented as of this encounter Care Teams Dress Marker Relationship Specialty Start Date End Date Diann Ramirez MD [address] [place] [address] PCP - General Internal Medicine 07/16/12 documented as of this encounter
--- OUTSIDE RECORDS SUMMARY | 2024-12-02 13:00 | XMS_ITS | Encounter Summary ---
Author Organization [employer] Address [address] [facility] 7t [place] [address] Care Team Providers Care Development Representative Name Role Phone Diann Ramirez MD Primary Care Provider [phone] Encounter Details Date Type Department Care Team (Late st Contact Info) Description 10/01/2024 Orders Only [facility] [address] [place], [place] [id number] Diann Ramirez MD [address] [place] [address] Hiatal hernia (Primary Dx) Social History Tobacco [...] 12/20/2024 2:00 PM EST Telemedicine [facility] [address] [place] [address] Naomi Reyes RN [address] [place] [address] 02/15/2025 1:30 PM EDT Office Visit [facility] [address] [place] [address] Diann Ramirez MD [address] [place] [address] documented as of this encounter Visit Diagnoses Diagnosis Hiatal hernia- Primary Diaphragmatic hernia without mention of obstruction or gangrene documented in this encounter Additional Health Concerns Assessment Noted Time PHQ-9 Depression Total Score: 4 03/20/20 24 9:12 AM EDT documented as of this encounter Care Teams Development Representative Relationship Specialty Start Date End Date Diann Ramirez MD [address] [place] [address] PCP - General Internal Medicine 07/16/12 documented as of this encounter
--- OUTSIDE RECORDS SUMMARY | 2024-12-02 13:01 | XMS_ITS | Encounter Summary ---
Author Organization [employer] Address [address] [place] [address] 7 [place] [address] Care Team Providers Care Laceworker Name Role Phone Diann Ramirez MD Primary Care Provider [phone] Reason for Referral * Consultation (Routine) - Closed Specialty Diagnoses / Procedures Referred By Contcary t Referred To Contact Behavioral Health Diagnoses Anxiety Diann Ramirez MD [address] [place] [address] Phone: tel: fax: Referral ID Status Reason Start Date Expiration Date V isits Requested Visits Authorized [id number] Closed Specialty Services Required 03/30/2024 03/30/2025 1 1 Encounter Details Date Type Department Care Team ([facility] Contact Info) Description 03/30/2024 Orders Only [facility] [address] [place] [address] Diann Ramirez MD [address] [place] [address] Anxiety (Primary Dx) Social History Tobacco Use [...] [facility] [address] [place] [address] Naomi Reyes RN [address] [place] [address] 02/15/2025 1:30 PM EDT Office Visit [facility] [address] [place] [address] Diann Ramirez MD [address] [place] [address] Scheduled Referrals Name Type Priority Associated Diagnoses Order Schedule Referral to Behavioral Health Outpatient Referral Routine Anxiety Expected: 03/30/2024 (Approximate), Expires: 03/30/2025 documented as of this encounter Visit Diagnoses Diagnosis Anxiety- Primary Anxiety state, unspecified documented in this encounter Additional Health Concerns Assessment Noted Time PHQ-9 Depression Total Score: 4 03/20/20 24 9:12 AM EDT documented as of this encounter Care Teams Laceworker Relationship Specialty Start Date End Date Diann Ramirez MD [address] [place] [address] PCP - General Internal Medicine 07/16/12 documented as of this encounter
--- OUTSIDE RECORDS SUMMARY | 2024-12-02 13:01 | XMS_ITS | Encounter Summary ---
Author Organization [employer] Address [address] [facility] 7 [place] [address] Care Team Providers Care Manager Java Name Role Phone Diann Ramirez MD Primary Care Provider [phone] Reason for Visit * Reason Onset Date Comments Appointment Request 01/13/2024 Encounter Details Date Type Department Care Team (Late st Contact Info) Description 01/13/2024 Telephone [facility] [address] [place] [address] Diann Ramirez MD [address] [place] [address] Appointment Request Social History Tobacco Use Types [facility] [address] [place] [address] Naomi Reyes, TABATHA [address] [place] [address] 02/15/2025 1:30 PM EDT Office Visit [facility] [address] [place] [address] Dinan Ramirez MD [address] [place] [address] documented as of this encounter Visit Diagnoses Not on filedocumented in this encounter Additional Health Concerns Assessment Noted Time PHQ-9 Depression Total Score: 1 10/31/19 23 3:59 PM EST documented as of this encounter Care Teams Manager Java Relationship Specialty Start Date End Date Diann Ramirez MD [address] [place] [address] PCP - General Internal Medicine 07/16/12 documented as of this encounter
--- OUTSIDE RECORDS SUMMARY | 2024-12-02 13:01 | XMS_ITS | Encounter Summary ---
Author Organization [employer] Address [address] [facility] 7 [place] [address] Care Team Providers Care School Psychologist Name Role Phone Diann Ramirez MD Primary Care Provider [phone] Reason for Visit * Reason Onset Date Comments Referral 11/21/2022 Encounter Details Date Type Department Care Team (Late st Contact Info) Description 11/21/2022 Telephone [facility] MED[facility]INE [address] [place] [address] Diann Ramirez MD [address] [place] [address] Referral Social History Tobacco Use Types Packs/Day [...] by Dr Linton Please contact pt at [phone] Please see above message. Thanks * Telephone Encounter - Mario Tavaresos - 11/21/2022 2:42 PM EST Tc from pt requesting a new referral for neurologist states don't want to be seen by Dr Linton Please contact pt at [phone] documented in this encounter Plan of Treatment Upcoming Encounters Date Type Department Care Team (Late st Contact Info) Description 12/20/2024 2:00 PM EST Telemedicine [facility] [address] [place] [address] Naomi Reyes RN [address] [place] [address] 02/15/2025 1:30 PM EDT Office Visit [facility] [address] [place] [address] Diann Ramirez MD [address] [place] [address] documented as of this encounter Visit Diagnoses Diagnosis Chronic cluster headache, not intractable- Primary documented in this encounter Additional Health Concerns Assessment Noted Time PHQ-9 Depression Total Score: 1 10/31/19 23 3:59 PM EST documented as of this encounter Care Teams School Psychologist Relationship Specialty Start Date End Date Diann Ramirez MD [address] [place] [address] PCP - General Internal Medicine 07/16/12 documented as of this encounter
--- OUTSIDE RECORDS SUMMARY | 2024-12-02 13:01 | XMS_ITS | Encounter Summary ---
Author Organization [employer] Address [address] [place] [address] 7[address] [place] [address] Care Team Providers Care Hydrology Technician Name Role Phone Diann Ramirez MD Primary Care Provider [phone] Reason for Referral * Consultation (Routine) - Closed Specialty Diagnoses / Procedures Referred By Dania blackman Referred To Contact Hematology and Oncology Diagnoses Microcytic anemia Bicytopenia Diann Ramirez MD [address] [place] [address] Phone: tel: fax: Cornell Culver MD [address] [place] [phone] Phone: tel: fax: Referral ID Status Reason Start Date Expiration Date V isits Requested Visits Authorized [id number] Closed Specialty Services Required 03/16/2024 03/16/2025 1 1 * Imaging (Routine) - Closed Specialty Diagnoses / Procedures Referred By Contcary t Referred To Contact Diagnoses Numbness of right foot Numbness of left foot Procedures EMG Diann Ramirez MD [address] [place] [address] Phone: tel: fax: [address] Phone: tel: fax: Referral ID Status Reason Start Date Expiration Date Visits Re quested Visits Authorized [id number] Closed 03/16/2024 03/16/2025 1 1 Encounter Details Date Type Department Care Team (Late Contact Info) Description 03/12/2024 Orders Only [facility] [address] [place] [address] Diann Ramirez MD [address] [place] [address] Microcytic anemia (Primary Dx); Vitamin D deficiency; [...] [facility] [address] [place] [address] Naomi Reyes, RN [address] [place] [address] 02/15/2025 1:30 PM EDT Office Visit [facility] [address] [place] [address] Diann Ramirez MD [address] [place] [address] Scheduled Orders Name Type Priority Associated Diagnoses [...] EDT Narrative 03/24/2024 3:35 PM EDT ? [facility] ?[address] ?[place] [address] ? CT Scan Report ? Signed ? Patient: Stopa,Luc J ?MR#: [id number] ?? 78 ? : 1980 ?Acct:[id number] ? Age/Sex: 43 / M ?ADM Date: 03/24/24 ? Loc: HO.ED ? Attending Dr: ? Ordering Physician: Phani Gamino DO ?? Date of Service: 03/24/24 ?? Procedure(s): CT head/brain wo IV con ?? Accession Number(s): [id number] ? cc: Diann Ramirez MD; Phani Gamino [...] 1531 ? DD/ 1423 ? TD/TT: ? Share[employer] Admin: CARMEN ? Procedure Note Donotuseinterpreter, Image - 03/24/[address] [address] [address] Scan Report Signed Patient: Luc Erickson JMR#: [id number] [birth year] : 1980Acct:[id number] Age/Sex: 43 / MADM Date: 03/24/24 Loc: HO.ED Attending Dr: Ordering Physician: Phani Gamino DO Date of Service: 03/24/24 Procedure(s): CT head/brain wo IV con Accession Number(s): [id number] cc: Diann Ramirez MD; Phani Gamino DO [...] in OV> 03/24/24 1531 DD/ 1423 TD/TT: Sharepoint Admin: CARMEN [facility] External Provider IMG CT PROCEDURES Final Result * XR Chest 2 Views (03/24/2024 2:00 PM EDT) Anatomical Region Laterality Modality Chest Radiographic Lacey ging 03/24/2024 2:00 PM EDT Narrative 03/24/2024 3:11 PM EDT ? [facility] ?[address] ?[place] [address] ?XRay Report ? Signed ? Patient: Hiral Ericksonhan J ?MR#: [id number] ?? 78 ? : 1980 ?Acct:[id number] ? Age/Sex: 43 / M ?ADM Date: 03/24/24 ? Loc: HO.ED ? Attending Dr: ? Ordering Physician: Phani Gamino DO ?? Date of Service: 03/24/24 ?? Procedure(s): XR chest 2V ?? Accession Number(s): [id number] ? cc: Diann Ramirez MD; Phani Gamino [...] 1507 ? DD/ 1400 ? TD/TT: ? Sharepoint Admin: ? Procedure Note Colt Avendaño - 03/24/2024 [facility] [address] [facility] [address] XRay Report Signed Patient: Luc Erickson JMR#: [id number] [birth year] : 1980Acct:[id number] Age/Sex: 43 / MADM Date: 03/24/24 Loc: HO.ED Attending Dr: Ordering Physician: Phani Gamino DO Date of Service: 03/24/24 Procedure(s): XR chest 2V Accession Number(s): [id number] cc: Diann Ramirez MD; Phani Gamino DO [...] in OV> 03/24/24 1507 DD/ 1400 TD/TT: Sharepoint Admin: [facility] External Provider IMG XR PROCEDURES Final Result * Tick-borne Disease, Acute Molecular Panel (03/24/2024 12:15 PM EDT) Babesia microti DNA, Real Time PCR NOT DETECTED NOT DETECTED [facility] Comment:This test was develo ped and its analytical performancecharacteristics have been determined by [employer]. It has not been cleared or approved by theFDA. This assay has been validated pursuant to the CLIAregulations and is used for clinical purposes.THIS TEST WAS PERFORMED AT:[employer] [place] [phone] MEMBRENO MD Ehrlichia chaffensis DNA Real Time PCR NOT DETECTED NOT DETECTED [facility] Comment:This test was develo ped and its analytical performancecharacteristics have been determined by [employer]. It has not been cleared or approved by theFDA. This assay has been validated pursuant to the CLIAregulations and is used for clinical purposes.THIS TEST WAS PERFORMED AT:[facility] [address] [phone] MEMBRENO MD Anaplasma phagocytophilum DNA, QL Real Time PCR NOT DETECTED NOT DETECTED [facility] Comment:This test was develo ped and its analytical performancecharacteristics have been determined by [employer]. It has not been cleared or approved by theFDA. This assay has been validated pursuant to the CLIAregulations and is used for clinical purposes. Borrelia Species DNA, Ql Real Time PCR NOT DETECTED NOT DETECTED [facility] Comment:This test was develo ped and its analytical performancecharacteristics have been determined by [employer]. It has not been cleared or approved by theFDA. This assay has been validated pursuant to the CLIAregulations and is used for clinical purposes.For additional information, please refer [email or web address](This link is being provided for informational/educational purposes only.)THIS TEST WAS PERFORMED AT:[facility] [address] [phone] MEMBRENO MD Borrelia Miyamotoi DNA, Ql Real Time PCR NOT DETECTED NOT DETECTED [facility] Comment:This test detects bu t does not distinguish betweenB. miyamotoi and B. hermsii.This test was developed and its analytical performancecharacteristics have been determined by [employer]. It has not been cleared or approved by theFDA. This assay has been validated pursuant to the CLIAregulations and is used for clinical purposes.THIS TEST WAS PERFORMED AT:[facility] [address] [phone] MEMBRENO MD Comment SEE NOTE [facility] Comment:A negative result do es not exclude Borrelia infectionas the concentration of the organism in blood may be lowor non-existent in patients with Lyme disease, and maydepend on timing of specimen collection from onset ofsymptoms. Clinical correlation is recommended andadditional studies such as serologic testing may beindicated.THIS TEST WAS PERFORMED AT:[facility] [address] [phone] MEMBRENO MD 03/24/2024 12:1 5 PM EDT 03/24/2024 12:19 PM EDT Generic External Data Provider LAB BLOOD ORDERAB LES Final Result Performing Organization Address [facility] Co de Phone Number [facility] [address] [place] [phone] * Slide Review (03/24/2024 12:15 PM EDT) Slide Review VERIFIED [facility] 03/24/2024 12:1 5 PM EDT 03/24/2024 12:19 PM EDT us Generic External Data Provider LAB BLOOD ORDERAB LES Final Result Performing Organization Address [facility] Phone Number [facility] [address] [place] [phone] * (ABNORMAL) CBC auto differential (03/24/2024 12:15 PM EDT) White Blood Count 8.3 4.8 - 10.8 X10*3/uL [facility] Red Blood Count 4.86 4.60 - 5.80 X10*6/uL [facility] Hemoglobin 14.0 14.0 - 18.0 g/dl [facility] Hematocrit 41.0(L) 42.0 - 52.0 % [facility] Mean Corpuscular Volume 84.4 80.0 - 98.0 fL [facility] Mean Corpuscular Hemoglobin 28.8 27.0 - 33.0 pg [facility] Mean Corpuscular HGB Conc 34.1 31.0 - 36.0 g/dl [facility] Red Cell Distribution Width 12.2 11.0 - 16.0 % [facility] Platelet Count 122(L) 160 - 400 X10*3/uL [facility] Comment:Confirmed by smear. Mean Platelet Volume 10.8 9.4 - 12.4 fL [facility] Neutrophils Percent Auto 62.4 45 - 73 % [facility] Imm Gran Pct Auto 0.7(H) 0.0 - 0.4 % [facility] Lymphocytes Percent Auto 27.4 20 - 40 % [facility] Monocytes Percent Auto 5.6 2 - 11 % [facility] Eosinophils Percent Auto 3.3 0 - 4 % [facility] Basophils Percent Auto 0.6 0 - 2 % [facility] NRBC Pct Auto 0.0 0.0 - 0.2 /100WBC [facility] Neutrophils Absolute Auto 5.2 2.0 - 8.3 x10*3/uL [facility] Imm Gran Abs Auto 0.06(H) 0.00 - 0.03 X10*3/uL [facility] Lymphocytes Absolute Auto 2.3 1.2 - 4.9 X10*3/uL [facility] Monocytes Absolute Auto 0.5 0.1 - 1.2 X10*3/uL [facility] Eosinophils Absolute Auto 0.3 0.0 - 0.4 X10*3/uL [facility] Basophils Absolute Auto 0.1 0.0 - 0.2 X10*3/uL [facility] NRBC Abs Auto 0.000 0.0 - 0.012 X10*3/uL [facility] 03/24/2024 12:1 5 PM EDT 03/24/2024 12:19 PM EDT us Generic External Data Provider LAB BLOOD ORDERAB LES Edited Result - Final [facility] [address] [place] [address] [phone] * TSH with Reflex to Free T4 (03/24/2024 12:15 PM EDT) TSH reflex Free T4 1.53 0.32 - 4.0 uIU/mL [facility] 03/24/2024 12:1 5 PM EDT 03/24/2024 12:19 PM EDT Generic External Data Provider LAB BLOOD ORDERAB LES Final Result Performing Organization Address [facility]/ZIP Co de Phone Number [facility] [address] [place] [phone] * Ferritin (03/24/2024 12:15 PM EDT) Ferritin 109 20 - 250 ng/mL [facility] 03/24/2024 12:1 5 PM EDT 03/24/2024 12:19 PM EDT Generic External Data Provider LAB BLOOD ORDERAB LES Final Result Performing Organization Address [facility] Co de Phone Number [facility] [address] [place] [phone] * High Sensitivity Troponin I (03/24/2024 12:15 PM EDT) TROPONIN I HIGH SENSITIVITY <2.7 <3.5 - 35.0 ng/L [facility] Comment:The Cha high sens itivity Troponin-I results should beused in conjunction with other diagnostic information suchas ECG, clinical observations and information, and patientsymptoms to aid in the diagnosis of CT. 03/24/2024 12:1 5 PM EDT 03/24/2024 12:19 PM EDT Generic External Data Provider LAB BLOOD ORDERAB LES Final Result Performing Organization Address [facility] Co de Phone Number [facility] [address] [place] [phone] * Magnesium (03/24/2024 12:15 PM EDT) Magnesium 1.9 1.6 - 2.6 mg/dL [facility] 03/24/2024 12:1 5 PM EDT 03/24/2024 12:19 PM EDT us Generic External Data Provider LAB BLOOD ORDERAB LES Final Result [facility] [address] [place] [phone] * (ABNORMAL) Comprehensive Metabolic Panel (03/24/2024 12:15 PM EDT) Sodium 140 135 - 145 mmol/L [facility] Potassium 3.6 3.3 - 5.1 mmol/L [facility] Chloride 106 96 - 108 mmol/L [facility] Carbon Dioxide 27 22 - 29 mmol/L [facility] Anion Gap 11(L) 12 - 20 [facility] Urea Nitrogen (BUN) 8(L) 9 - 16 mg/dL [facility] Creatinine, Serum 0.84 0.5 - 1.4 mg/dL [facility] Creatinine Clr Calc Pharmacy 145.2 [facility] Comment:eGFR (calculated fro m the MDRD study equation) and eCrCl(calculated from the Cockcroft-Gault equation) are based ondifferent parameters and may not yield comparable results.If eCrCl result is absurd, please check patient'sheight/weight. Estimated Glomerular Filt Rate >60 [facility] Comment:NOTE: For -Am erican individuals, multiply the result by 1.210.Chronic Kidney Disease: Estimated GFR < 60 mL/min/1.67x6Quhdpn Kidney Disease: Estimated GFR < 15 mL/min/1.73m2 Glucose 113 60 - 115 mg/dL [facility] Calcium 9.3 8.4 - 10.2 mg/dL [facility] Bilirubin, Total 0.3 0.0 - 1.0 mg/dL [facility] Aspartate Amino Transferase 15 5 - 37 U/L [facility] Alanine Aminotransferase 13 0 - 40 U/L [facility] Total Protein 7.5 6.5 - 8.0 g/dL [facility] Albumin Level 4.3 3.5 - 5.0 g/dL [facility] Alkaline Phosphatase 79 39 - 117 U/L [facility] 03/24/2024 12:1 5 PM EDT 03/24/2024 12:19 PM EDT Generic External Data Provider LAB BLOOD ORDERAB LES Final Result Performing Organization Address [facility] Co de Phone Number [facility] [address] [place] [phone] * Prothrombin Time-INR (03/24/2024 12:15 PM EDT) Prothrombin Time 12.4 11.1 - 13.3 SEC [facility] INTERNATIONAL NORM RATIO 1.0 0.9 - 1.1 [facility] Comment:INTERNATIONAL NORMAL IZED RATIO (INR) [...] Final Result Performing Organization Address [facility] de Phone Number [facility] [address] [place] [phone] * (ABNORMAL) Reticulocyte Count (03/16/2024 11:56 AM EDT) Reticulocytes Absolute 0.127(H) 0.026 - 0.095 X10*6/uL [facility] Immature Retic Fraction 15.3(H) 2.3 - 13.4 % [facility] Retic HGB Equivalent 33.6 30.0 - 35.0 pg [facility] Reticulocyte Percent 2.8(H) 0.5 - 1.8 % [facility] Blood Venous blood specimen / Unknown 03/16/2024 11:56 AM EDT 03/16/2024 2:40 PM EDT us Diann Ramirez MD LAB BLOOD ORDERABLES Final Result Performing Organization Address [facility] Co de Phone Number [facility] [address] [place] [phone] * Ferritin (03/16/2024 11:56 AM EDT) Ferritin 118 20 - 250 ng/mL [facility] Blood Venous blood specimen / Unknown 03/16/2024 11:56 AM EDT 03/16/2024 2:42 PM EDT us Diann Ramirez MD LAB BLOOD ORDERABLES Final Result Performing Organization Address [facility] Co de Phone Number [facility] [address] [place] [phone] * Iron And Total Iron Binding Capacity (03/16/2024 11:56 AM EDT) Iron 55 45 - 160 mcg/dL [facility] Total Iron Binding Capacity 261 228 - 428 mcg/dL [facility] Percent Iron Saturation 21 15 - 50 % [facility] Unsaturated Iron Binding 206 ug/dL [facility] Blood Venous blood specimen / Unknown 03/16/2024 11:56 AM EDT 03/16/2024 2:42 PM EDT us Diann Ramirez MD LAB BLOOD ORDERABLES Final Result Performing Organization Address [facility] Co de Phone Number [facility] [address] [place] [phone] documented in this encounter Visit Diagnoses Diagnosis Microcytic anemia- Primary Unspecified iron deficiency anemia Vitamin D deficiency Primary hypertension Unspecified essential hypertension Numbness of right foot Numbness of left foot Bicytopenia documented in this encounter Additional Health Concerns Assessment Noted Time PHQ-9 Depression Total Score: 1 10/31/19 23 3:59 PM EST documented as of this encounter Care Teams Hydrology Technician Relationship Specialty Start Date End Date Diann Ramirez MD [address] [place] [address] PCP - General Internal Medicine 07/16/12 documented as of this encounter
--- OUTSIDE RECORDS SUMMARY | 2024-12-02 13:01 | XMS_ITS | Clinical Summary ---
Author Organization [employer] Address 75 [facility] 7t [place] [address] Care Team Providers Care Finish Repair Worker Name Role Phone Diann Ramirez MD Primary Care Provider +1- [phone] Allergies Active Allergy Reactions Criticality Noted Date [...] 23 Active ergocalciferol (Vitamin D2) 1.25 MG (47763 UT) capsuleIndicati ons:Vitamin D deficiency Take 1 [...] and protective factors. Referral placed sent to [facility] on 07/21 for OP services. Provided [...] intervention , Patient to reach out to [facility] team as needed, Patient to engage in [...] and protective factors. Referral placed sent to [facility] on 07/21 for OP services. Provided [...] Type Department Care Team Description 11/24/2024 Refill [facility] MEDICINE [address] [place] [address] Diann Ramirez MD Anxiety 11/15/2024 9:15 AM EST Office Visit [facility] MED & PEDS [address] [place] [address] Diann Ramirez MD Primary hypertension (Primary Dx); Other closed fracture of distal end of left fibula, initial encounter; Dietary counseling; Exercise counseling; Class 2 severe obesity due to excess calories with serious comorbidity and body mass index (BMI) of 35.0 to 35.9 in adult ([facility]) 11/15/2024 Travel 11/11/2024 Orders Only [facility] External Provider, [facility] 10/27/2024 Refill [facility] MED & PEDS [address] [place] [address] Diann Ramirez MD Anxiety 10/01/2024 Telephone [facility] MED & PEDS [address] [place] [address] Diann Ramirez MD Results 10/01/2024 Refill [facility] MEDICINE [address] [place] [address] Diann Ramirez MD Anxiety 10/01/2024 Orders Only [facility] & PEDS [address] [place] [address] Diann Ramirez MD Hiatal hernia (Primary Dx) 09/22/2024 9:30 AM EST Clinical Support [facility] & PEDS [address] [place] [address] Naomi Reyes, TABATHA Anxiety 09/22/2024 Telephone [facility] MED & PEDS [address] [place] [address] Naomi Reyes, RN 09/22/2024 Travel 09/02/2024 Refill [facility] PED[facility] [address] [place] [address] Naomi Reyes, RN Anxiety 09/02/2024 Telephone [facility] MEDICINE [address] [place] [address] Diann Ramirez MD Med Refill from Last [...] Upcoming Encounters Date Type Department Care Team ([facility] st Contact Info) Description 12/20/2024 2:00 PM EST Telemedicine [facility] MED & PEDS [address] [place] [address] Naomi Reyes, ATBATHA [address] [place] [address] 02/15/2025 1:30 PM EDT Office Visit [facility] MED & PEDS [address] [place] [address] Diann Ramirez MD [address] [place] [address] Health Maintenance Due Date Last Done Comments [...] [address] ?[place] [address] ?XRay Report ? Signed ? Patient: Luc Erickson ?MR#: [id number] ?? 78 ? : 1980 ?Acct:[id number] ? Age/Sex: 44 / M ?ADM Date: 11/26/24 ? Loc: HO.HOSX ? Attending Dr: Misha VELASQUEZ ? Ordering Physician: Anna Bennett PA-C ?? Date of Service: 11/26/24 ?? Procedure(s): XR ankle LT min 3V ?? Accession Number(s): [id number] ? cc: Diann Ramirez MD; Anna Bennett [...] DD/ 1103 ? TD/TT: 11/26/24 1112 ? Trauma Program Manager: ? Procedure Note Kateryna, Image - 11/26/2024 [facility] [address] [place] [address] [address] [place] [address] XRay Report Signed Patient: Luc Erickson JMR#: [id number] 78 : 1980Acct:[id number] Age/Sex: 44 / MADM Date: 11/26/24 Loc: IAN Attending Dr: Misha VELASQUEZ Ordering Physician: Anna Bennett PA-C Date of Service: 11/26/24 Procedure(s): XR ankle LT min 3V Accession Number(s): [id number] cc: Diann Ramirez MD; Anna Bennett PA-C [...] 11/26/24 1133 DD/ 1103 TD/TT: 11/26/24 1112 Trauma Program Manager: [facility] External Provider IMG XR PROCEDURES Final Result * FL Guidance in OR (11/24/2024 2:38 PM EST) Anatomical Region Laterality Modality X-Ray Angiograph y 11/24/2024 2:38 PM EST Narrative 11/25/2024 8:58 AM EST ? [facility] ?[address] ?[place] [address] ? Fluoroscopy Report ? Signed ? Patient: Stopa,Luc J ?MR#: [id number] ?? 78 ? : 1980 ?Acct:[id number] ? Age/Sex: 44 / M ?ADM Date: 11/24/24 ? Loc: HO.SSS ? Attending Dr: Will Randolph MD ? Ordering Physician: Will Randolph MD ?? Date of Service: 11/24/24 ?? Procedure(s): FL guidance in OR ?? Accession Number(s): [id number] ? cc: Diann Ramirez MD; Will Randolph [...] DD/ 1438 ? TD/TT: 11/24/24 1527 ? Trauma Program Manager: ? Procedure Note Kateryna, Colt - 11/25/[address] [place] [address] Fluoroscopy Report Signed Patient: Luc Erickson JMR#: [id number] [birth year] : 1980Acct:[id number] Age/Sex: 44 / MADM Date: 11/24/24 Loc: HO.SSS Attending Dr: Will Randolph MD Ordering Physician: Will Randolph MD Date of Service: 11/24/24 Procedure(s): FL guidance in OR Accession Number(s): [id number] cc: Diann Ramirez MD; Will Randolph MD [...] 11/25/24 0856 DD/ 1438 TD/TT: 11/24/24 1527 Trauma Program Manager: [facility] External Provider IMG IR PROCEDURES Final Result * XR Tibia Fibula 2 Views Left (11/11/2024 10:45 AM EST) Anatomical Region Laterality Modality Lower Extremities, Lower Leg Left Rad iographic Imaging 11/11/2024 10:4 5 AM EST Narrative 11/11/2024 11:32 AM EST ? [facility] ?[address] ?[place] [address] ?XRay Report ? Signed ? Patient: Stopa,Luc J ?MR#: [id number] ?? 78 ? : 1980 ?Acct:[id number] ? Age/Sex: 44 / M ?ADM Date: 01/23/25 ? Loc: HO.ED ? Attending Dr: ? Ordering Physician: Generic ED Physician ?? Date of Service: 11/11/24 ?? Procedure(s): XR tibia fibula LT 2V ?? Accession Number(s): [id number] ? cc: Diann Ramirez MD; Generic ED [...] DD/ 1045 ? TD/TT: 11/11/24 1100 ? Trauma Program Manager: MSM ? Procedure Note Kateryna, Image - 11/11/2024 [place] [address] XRay Report Signed Patient: Luc Erickson JMR#: [id number] 78 : 1980Acct:[id number] Age/Sex: 44 / MADM Date: 11/11/24 Loc: HO.ED Attending Dr: Ordering Physician: Generic ED Physician Date of Service: 11/11/24 Procedure(s): XR tibia fibula LT 2V Accession Number(s): [id number] cc: Diann Ramirez MD; Generic ED Physician [...] 11/11/24 1129 DD/ 1045 TD/TT: 11/11/24 1100 Trauma Program Manager: FEMI [facility] External Provider IMG XR PROCEDURES Final Result * FL Esophagus Barium Swallow (09/30/2024 8:33 AM EST) Anatomical Region Laterality Modality Head, Neck Radiographic Lacey ging 09/30/2024 8:33 AM EST Narrative 09/30/2024 4:36 PM EST ? [facility] ?[address] ?[place] [address] ? Fluoroscopy Report ? Signed ? Patient: Stopa,Luc J ?MR#: [id number] ?? 78 ? : 1980 ?Acct:[id number] ? Age/Sex: 44 / M ?ADM Date: 09/30/24 ? Loc: HO.XRAY ? Attending Dr: Diann Ramirez MD ? Ordering Physician: Dainn Ramirez MD ?? Date of Service: 09/30/24 ?? Procedure(s): FL barium swallow ?? Accession Number(s): [id number] ? cc: Diann Ramirez MD ? EXAMINATION: [...] DD/ 0833 ? TD/TT: 09/30/24 0904 ? Trauma Program Manager: ? Procedure Note Kateryna, Image - 10/01/[address] [address] Fluoroscopy Report Signed Patient: Luc Erickson JMR#: [id number] [birth year] : 1980Acct:[id number] Age/Sex: 44 / MADM Date: 09/30/24 Loc: HO.XRAY Attending Dr: Dainn Ramirez MD Ordering Physician: Diann Ramirez MD Date of Service: 09/30/24 Procedure(s): FL barium swallow Accession Number(s): [id number] cc: Diann Ramirez MD EXAMINATION: XR FLUOROSCOPY [...] MD 09/30/2024 04:33 PM EST RP Workstation: [id number] Dictated By: Perfecto Babb Signed By: <Electronically signed by Perfecto Babb in OV> 09/30/24 1633 <Electronically signed by Carter Ruiz MD in OV> 09/30/24 1636 DD/ 0833 TD/TT: 09/30/24 0904 Trauma Program Manager: us Diann Ramirez MD IMG FLUOROSCOPY PROCEDURES Edited Result - Final * POCT COLLIN-14 Urine Drug Screen (09/22/2024 9:58 AM EST) Benzodiazepines Screen, Urine Positive Buprenophine Screen, Urine Positive Urine Urine specimen obtained by clean catch procedure / Unknown 09/22/2024 9:58 AM EST Narrative Naomi Reyes RN - 09/22/2024 9:58 AM EST Lot# [id number] Exp: 09-25-25 us Diann Ramirez MD POINT OF CARE TEST ENTER/ED IT ORDERABLES Final Result * (ABNORMAL) Lipid Panel, Standard (03/11/2024 1:07 PM EDT) Triglycerides 40 <150 mg/dL [facility] Comment:Desirable Triglyceri de: less than 150 mg/dLBorderline High Triglyceride 150-199 mg/dLHigh Triglyceride: 200-499 mg/dLVery High Triglyceride: greater than or equal to 5OO mg/dL Cholesterol 141 <200 mg/dL [facility] Comment:Desirable Cholestero l: less than 200 mg/dLBorderline High Cholesterol: 200-239 mg/dLHigh Cholesterol: greater than 239 mg/dL LDL Cholesterol Calculated 93 <100 mg/dL [facility] Comment:Desirable LDL: less than 100 mg/dLNear Optimal/Above Optimal LDL: 110- 129 mg/dLBorderline High LDL: 130-159 mg/dLHigh LDL: 160-189 mg/dLVery High LDL: greater than or equal to 190 mg/dL HDL Cholesterol 40(L) >40 mg/dL [facility] Comment:Desirable HDL: great er than 40 mg/dL Note: This HDL assay may give artificially low results in patients with liver disease. Blood Venous blood specimen / Unknown 03/11/2024 1:07 PM EDT 03/11/2024 2:22 PM EDT us Diann Ramirez MD LAB BLOOD ORDERABLES Final Result Performing Organization Address City/[facility]/ZIP Co de Phone Number [facility] [address] [place] [phone] * HIV AB/AG (08/07/2022 2:03 PM EDT) [facility] HIV AB/AG Nonreactive Nonreactive [facility] Comment: HIV-1 p24 Ag and/or [...] detection of this assay. ?? [employer] HIV Ag/Ab Combo assay result and supplemental assay results should be interpreted in conjunction with the patient's clinical presentation, history and other laboratory results. ??If the results are inconsistent with clinical evidence, additional testing is suggested to confirm the result. 08/07/2022 2:03 PM EDT us Tra Linton MD HISTORICAL/NON ORDERAB LE LABS Final Result [facility] * HEPATITIS C AB W/REFL TO HCV RNA, QN, PCR (07/01/2022 10:13 AM EDT) HEPATITIS C ANTIBODY NON-REACT JESSEE NON-REACT JESSEE [facility] INDEX 0.14 <1.00 [facility] Comment: ?? HCV antibody was non-reactive. There is no laboratory ?? evidence of HCV infection. ?? In most cases, no further action is required. However, if recent HCV exposure is suspected, a test for HCV RNA (test code 92701) is suggested. ?? For additional information please refer to http://education.[employer]/faq/WOT28u1 (This link is being provided for informational/ educational purposes only.) ?? 07/01/2022 10:1 3 AM EDT us Diann Ramirez MD HISTORICAL/NON ORDERABLE PUMA JAMESON Final Result [facility] Anywhere [address] from Last 3 Months or Most Recently Relevant to Health Maintenance [facility] * Guarantor: Luc Erickson Account Type Relation to Patient Date of Phone Billing Address Personal/[place] [address] * Guarantor: Luc Erickson Account Type Relation to Patient Date of Phone Billing Address Personal/[place] [address] Care Teams Finish Repair Worker Relationship Specialty Start Date End Date Diann Ramirez MD [address] [place] [address] [place] [address] PCP - General Internal Medicine 07/16/12
--- OUTSIDE RECORDS SUMMARY | 2024-12-02 13:01 | XMS_ITS | Encounter Summary ---
Author Organization [employer] Address 75 [facility] 7 [place] [address] Care Team Providers Care Title Examiner Name Role Phone Diann Ramirez MD Primary Care Provider [phone] Reason for Visit * Reason Onset Date Comments Med Refill 10/25/2022 Encounter Details Date Type Department Care Team (Late st Contact Info) Description 10/25/2022 Telephone [facility] MEDICINE [address] [place], [place] [phone] Diann Ramirez MD [address] [place], [place] [phone] Med Refill Social History Tobacco Use Types [...] for lorazepam 1 mg. Please contact at [phone] documented in this encounter Plan of Treatment Upcoming Encounters Date Type Department Care Team (Late st Contact Info) Description 12/20/2024 2:00 PM EST Telemedicine [facility] MED & PEDS [address] [place] [address] Naomi Reyes RN [address] [place] [address] 02/15/2025 1:30 PM EDT Office Visit [facility] MED & PEDS [address] [place] [address] Diann Ramirez MD [address] [place] [address] documented as of this encounter Visit Diagnoses Not on filedocumented in this encounter Care Teams Title Examiner Relationship Specialty Start Date End Date Diann Ramirez MD [address] [place] [address] PCP - General Internal Medicine 07/16/12 documented as of this encounter
--- OUTSIDE RECORDS SUMMARY | 2024-12-02 13:01 | XMS_ITS | Encounter Summary ---
Author Organization [employer] Address 75 [facility] 7 [place] [address] Care Team Providers Care Factory Engineer Name Role Phone Diann Ramirez MD Primary Care Provider [phone] Reason for Visit * Reason Onset Date Comments Appointment Request 04/28/2024 Encounter Details Date Type Department Care Team (Late st Contact Info) Description 04/28/2024 Telephone [facility] MEDICINE [address] [place] [address] Diann Ramirez MD [address] [place] [address] Appointment Request Social History Tobacco Use Types [...] won't be able to make it today's CLIENT DEVELOPMENT DIRECTOR visit due to not feeling well and is requesting to reschedule. Please contact pt at [phone]. documented in this encounter Plan of Treatment Upcoming Encounters Date Type Department Care Team (Late st Contact Info) Description 12/20/2024 2:00 PM EST Telemedicine [facility] MED & PEDS [address] [place] [address] Naomi Reyes, RN [address] [place] [address] 02/15/2025 1:30 PM EDT Office Visit [facility] MED & PEDS [address] [place] [address] Diann Ramirez MD [address] [place] [address] documented as of this encounter Visit Diagnoses Not on filedocumented in this encounter Additional Health Concerns Assessment Noted Time PHQ-9 Depression Total Score: 4 03/20/20 24 9:12 AM EDT documented as of this encounter Care Teams Factory Engineer Relationship Specialty Start Date End Date Diann Ramirez MD [address] [place] [address] PCP - General Internal Medicine 07/16/12 documented as of this encounter
--- OUTSIDE RECORDS SUMMARY | 2024-12-02 13:01 | XMS_ITS | Encounter Summary ---
Author Organization [employer] Address 75 [facility] 7 [place] [address] Care Team Providers Care Superintendent Circus Name Role Phone Diann Ramirez MD Primary Care Provider [phone] Reason for Visit * Reason Onset Date Comments Med Refill 09/02/2024 Encounter Details Date Type Department Care Team (Late st Contact Info) Description 09/02/[address] [facility] MEDICINE [address] [place] [address] Diann Ramirez MD [address] [place] [address] Med Refill Social History Tobacco Use Types [...] 1 MG tablet To be sent to: [id number] - [place] - 1 [facility] TAMI documented in this encounter Plan of Treatment Upcoming Encounters Date Type Department Care Team (Late st Contact Info) Description 12/20/2024 2:00 PM EST Telemedicine [facility]EDS [address] [place] [address] Naomi Reyes RN [address] [place] [address] 02/15/2025 1:30 PM EDT Office Visit [facility] PEDS [address] [place] [address] Diann Ramirez MD [address] [place] [address] documented as of this encounter Visit Diagnoses Not on filedocumented in this encounter Additional Health Concerns Assessment Noted Time PHQ-9 Depression Total Score: 4 03/20/20 24 9:12 AM EDT documented as of this encounter Care Teams Superintendent Circus Relationship Specialty Start Date End Date Diann Ramirez MD [address] [place] [address] PCP - General Internal Medicine 07/16/12 documented as of this encounter
--- OUTSIDE RECORDS SUMMARY | 2024-12-02 13:01 | XMS_ITS | Encounter Summary ---
Author Organization [employer] Address 75 [facility] 7 [place] [address] Care Team Providers Care Front End Software Engineer Name Role Phone Diann Ramirez MD Primary Care Provider [phone] Reason for Visit * Reason Onset Date Comments Med Refill 11/25/2022 Encounter Details Date Type Department Care Team (Late st Contact Info) Description 11/25/2022 Telephone [facility] MEDICINE [address] [place] [address] Diann Ramirez MD [address] [place] [address] Med Refill Social History Tobacco Use Types [...] [facility] MED & PEDS [address] [place] [address] Naomi Reyes RN [address] [place] [address] 02/15/2025 1:30 PM EDT Office Visit [facility] MED [facility] PEDS [address] [place] [address] Diann Ramirez MD [address] [place] [address] documented as of this encounter Visit Diagnoses Not on filedocumented in this encounter Additional Health Concerns Assessment Noted Time PHQ-9 Depression Total Score: 1 10/31/19 23 3:59 PM EST documented as of this encounter Care Teams Front End Software Engineer Relationship Specialty Start Date End Date Diann Ramirez MD [address] [place] [address] PCP - General Internal Medicine 07/16/12 documented as of this encounter
--- OUTSIDE RECORDS SUMMARY | 2024-12-02 13:01 | XMS_ITS | Encounter Summary ---
Author Organization [employer] Address 75 [facility] 7 [place] [address] Care Team Providers Care Design Painter Name Role Phone Diann Ramirez MD Primary Care Provider [phone] Reason for Visit * Reason Comments Hypertension Encounter Details Date Type Department Care Team ([facility] st Contact Info) Description 11/15/2024 9:15 AM EST Office Visit [facility]S [address] [place], [place] [phone] Diann Ramirez MD [address] [place] [address] Primary hypertension (Primary Dx); Other closed fracture of distal end of left fibula, initial encounter; Dietary counseling; Exercise counseling; Class 2 severe obesity due to excess calories with serious comorbidity and body mass index (BMI) of 35.0 to 35.9 in adult ([facility]) Social History Tobacco Use Types Packs/Day [...] index (BMI) of35.0 to 35.9 in adult ([facility]) Discussed calorie deficit, recommended reduction of 20-30% of maintenance calories; manufacturing intern referral offered. Recommended to decrease soda and [...] [facility] [address] [place] [address] Naomi Reyes, TABATHA [address] [place] [address] 02/15/2025 1:30 PM EDT Office Visit [facility]EDS [address] [place] [address] Diann Ramirez MD [address] [place] [address] documented as of this encounter Visit Diagnoses Diagnosis Primary hypertension- Primary Unspecified essential hypertension Other closed fracture of distal end of left fibula, initial encounter Dietary counseling Dietary surveillance and counseling Exercise counseling Class 2 severe obesity due to excess calories with serious comorbidity and body mass index (BMI) of 35.0 to 35.9 in adult ([facility]) documented in this encounter Additional Health Concerns Assessment Noted Time PHQ-9 Depression Total Score: 4 03/20/20 24 9:12 AM EDT documented as of this encounter Care Teams Design Painter Relationship Specialty Start Date End Date Diann Ramirez MD [address] [place] [address] PCP - General Internal Medicine 9/27/12 documented as of this encounter
--- OUTSIDE RECORDS SUMMARY | 2024-12-02 13:01 | XMS_ITS | Encounter Summary ---
Author Organization [employer] Address 75 [facility] 7t [place] [address] Care Team Providers Care Quickbooks Bookkeeper Name Role Phone Diann Ramirez MD Primary Care Provider [phone] Encounter Details Date Type Department Care Team (Late Contact Info) Description 10/18/2022 Orders Only [facility] MEDICINE [address] [place] [address] Diann Ramirez MD [address] [place], [place] [phone] Acute cough; Bronchospasm Social History Tobacco Use [...] Info) Description 12/20/2024 2:00 PM EST Telemedicine [facility] MED [facility] PEDS [address] [place], [place] [phone] Naomi Reyes, TABATHA [address] [place], [place] [phone] 02/15/2025 1:30 PM EDT Office Visit [facility] & [facility]EDS [address] [place] [address] Diann Ramirez MD [address] [place] [address] documented as of this encounter Visit Diagnoses Diagnosis Acute cough Bronchospasm Acute bronchospasm documented in this encounter Care Teams Quickbooks Bookkeeper Relationship Specialty Start Date End Date Diann Ramirez MD [address] [place] [address] PCP - General Internal Medicine 07/16/12 documented as of this encounter
--- OUTSIDE RECORDS SUMMARY | 2024-12-02 13:01 | XMS_ITS | Clinical Summary ---
Author Organization [employer] [facility] ity Address [address] [place] [address] Care Team Providers Care Architectural Technologist Name Role Phone Unavailable Primary Care Provider Unavailabl e Social History Tobacco Use Types Packs/Day Years Used Date Smoking Tobacco: Never Assessed Sex and Gender Information Value Date Recorded Sex Assigned at Not on file Legal Sex Male 7:33 AM EST Gender Identity Not on file Sexual Orientation Not on file Plan of Treatment Health Maintenance Due Date Last Done Comments DTaP,Tdap,and Td Vaccines (1 - Tdap) 1999 Hepatitis B Vaccines (1 of 3 - 19+ 3-dose series) 1999 Cholesterol Screening (Lipid Panel) 09/22/2022 Depression Screening 09/22/2022 HIV Screening 09/22/2022 Hepatitis C Screening 09/22/2022 Social Influencers of Health Screening 09/22/2022 COVID-19 Vaccine ( - 2023-2 5 season) 2024 Influenza Vaccine (#1) 2024 [...] patient's age to complete this topic Meningococcal B Vacine Aged Out No lo nger eligible based on patient's age to complete [...]
--- OUTSIDE RECORDS SUMMARY | 2024-12-02 13:01 | XMS_ITS | Encounter Summary ---
Author Organization [employer] Address [address] [facility] 7 [place] [address] Care Team Providers Care Web Mobile Designer Name Role Phone Diann Ramirez MD Primary Care Provider [phone] Reason for Visit * Reason Onset Date Comments Med Refill 11/24/2024 Encounter Details Date Type Department Care Team (Late st Contact Info) Description 11/24/2024 Refill [facility] MED[facility] [address] [place] [address] Diann Ramirez MD [address] [place] [address] Anxiety Social History Tobacco Use Types Packs/Day [...] 1 MG tablet To be sent to: [id number] - [place] - [address] [facility] [place] [facility] documented in this encounter Plan of Treatment Upcoming Encounters Date Type Department Care Team (Late st Contact Info) Description 12/20/2024 2:00 PM EST Telemedicine [facility] MED & PEDS [address] [place] [address] Naomi Reyes RN [address] [place] [address] 02/15/2025 1:30 PM EDT Office Visit [facility] PEDS [address] [place] [address] Diann Ramirez MD [address] [place] [address] documented as of this encounter Visit Diagnoses Diagnosis Anxiety Anxiety state, unspecified documented in this encounter Additional Health Concerns Assessment Noted Time PHQ-9 Depression Total Score: 4 03/20/20 24 9:12 AM EDT documented as of this encounter Care Teams Web Mobile Designer Relationship Specialty Start Date End Date Diann Ramirez MD [address] [place] [address] PCP - General Internal Medicine 07/16/12 documented as of this encounter
--- OUTSIDE RECORDS SUMMARY | 2024-12-02 13:01 | XMS_ITS | Encounter Summary ---
Author Organization [employer] Address [address] [facility] [address] 7[address] [place] [address] Care Team Providers Care Carburetor Rebuilder Name Role Phone Diann Ramirez MD Primary Care Provider [phone] Encounter Details Date Type Department Care Team [...] [facility] [address] [place] [address] Naomi Reyes RN [address] [place] [address] 02/15/2025 1:30 PM EDT Office Visit [facility] MED & PEDS [address] [place] [address] Diann Ramirez MD 505 [place] [address] documented as of this encounter Visit Diagnoses Not on filedocumented in this encounter Additional Health Concerns Assessment Noted Time PHQ-9 Depression Total Score: 4 03/20/20 24 9:12 AM EDT documented as of this encounter Care Teams Carburetor Rebuilder Relationship Specialty Start Date End Date Diann Ramirez MD [address] [place] [address] PCP - General Internal Medicine 07/16/12 documented as of this encounter
--- NOTE | 2024-12-02 13:37 | MHC.OFFVIS ---
Intake Visit Reasons: PO LT ankle ORIF 11/24/24 NE Intake Note: Luc is a 44 year old male who presents today for a post op appointment s/p LT ankle ORIF 11/24/24 NE. Patient reports he is having a burning sensation on the top of his foot and ankle. He mention that he is able to move his toes. Allergies No Known Allergies Allergy (Verified 12/02/24 13:51) HPI HPI PO LT ankle ORIF 11/24/24 NE: Details: Mr. Erickson is a 44-year-old male who presents to the office today for routine follow-up status post left ankle ORIF performed on 11/24/[address] Randolph. Overall the patient is doing very well. He complains of mild pain. Still has some lingering numbness and tingling. 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 No surrounding erythema or drainage. No signs of infection. No skin breakdown. Lita slightly dorsiflexed and plantar flexed. Able to move all digits. Office Procedures Casting/Splints [id number]-[id number] Leg splint application Procedure code (CPT) selection complete Assessment & Plan Assessment & Plan (1) Status post ORIF of fracture of ankle: Code(s): Z98.890 - Other specified postprocedural states; Z87.81 - Personal history of (healed) traumatic fracture Category: Surgical Plan Mr. Erickson is a 44-year-old male who presents to the office today for routine follow-up status post left ankle ORIF performed on 11/24/[address] Randolph. Overall the patient is doing very well. He complains of mild pain. Still has some lingering numbness and tingling. While in the office today, I discussed the case with Dr. Randolph and due to the patient's anxiety and claustrophobia he was placed back into a short-leg splint. He was instructed to treat this as a cast and not take it off and/or get it wet. Should this happen he will contact our office immediately for splint change. Chester removed. Steri-Strips applied. He understands that he should remain nonweightbearing on the left lower extremity. He will follow up in 4 weeks for x-rays and splint off with anticipation of transitioning to a boot if there is good bony healing noted on x-rays. Follow up in 4 weeks, sooner if needed. Medications: Changed From oxycodone Partial Fill upon patient request. Aware patient is on Suboxone s/p ankle surgery 5 mg PO Q4H 7 days PRN 42 tabs 0RF pain (scale score 4-6) To oxycodone Partial Fill upon patient request. Aware patient is on Suboxone s/p ankle surgery 5 mg PO Q6H PRN 28 tabs 0RF pain (scale score 4-6) 7 days Coding Level of Care Code Global (22157) Diagnoses Status post ORIF of fracture of ankle Z98.890; Z87.81 CPT Codes Splint - CPT: 02127-Amcdw Leg splint application ([id number])
== END 2024-12-02 14:29 | disposition home or self-care (01) ==
PROVIDERS: PCP Internal Medicine; Visit Provider Physician Assistant
DX: S82.892D Other fracture of left lower leg, subsequent encounter for closed fracture with routine healing (principal); Z87.81 Personal history of (healed) traumatic fracture
CPT/HCPCS: 29515; 99024

== ENCOUNTER → 2024-12-02 12:56 | Outpatient (BNVA) | payer MEDICAID, SELFPAY | PROVIDERS: PCP Internal Medicine; Visit Provider Physician Assistant | DX: Z47.89 Encounter for other orthopedic aftercare (principal); Z87.81 Personal history of (healed) traumatic fracture; Z98.890 Other specified postprocedural states | CPT/HCPCS: 29515; 99212 ==

== ENCOUNTER 2024-12-07 09:03 | Outpatient (REF) | payer MEDICAID, SELFPAY ==
--- NOTE | ~2024-12-07 | XR_ITS ---
CLINICAL HISTORY: M25.579 - Pain in unspecified ankle and joints of unspecified foot 3 view left ankle Comparison: None Findings: Metallic plate and fixation screws are seen transfixing a posterior distal fibular fracture without evidence of hardware failure or loosening. 9 mm metallic device is also seen adjacent to the lateral malleolus. No acute fracture or dislocation is identified. Subcutaneous edema is seen about the ankle. IMPRESSION: 1. Internal fixation of the posterior distal fibular fracture without evidence of hardware failure or loosening. 2. Subcutaneous edema about the ankle. This document has been electronically signed by: Lizette Nolan on 12/08/2024 09:31:45
--- OUTSIDE RECORDS SUMMARY | 2024-12-07 09:39 | XMS_ITS | Clinical Summary ---
Author Organization [employer] [facility] ity Address [address] [place] [address] Care Team Providers Care Out Patient Therapist Name Role Phone Unavailable Primary Care Provider [...]
== END 2024-12-07 09:04 | disposition home or self-care (01) ==
LOC: HO.HOSX 09:03
PROVIDERS: Visit Provider Physician Assistant
DX: M25.572 Pain in left ankle and joints of left foot (principal); Z98.890 Other specified postprocedural states; Z87.81 Personal history of (healed) traumatic fracture
CPT/HCPCS: 29515; 73610; 99212

== ENCOUNTER 2024-12-07 11:13 | Outpatient (AMB) | payer MEDICAID, SELFPAY ==
--- NOTE | 2024-12-07 11:40 | A.OFFVIS_ITS ---
Intake Visit Reasons: PO LT ankle ORIF 11/24/24 NE Intake Note: Luc is a 44 year old male who presents today for a post op appointment s/p LT ankle ORIF 11/24/24 NE. Patient reports he slipped and fell outside and he feels like her twisted it. Allergies No Known Allergies Allergy (Verified 12/02/24 13:51) HPI HPI PO LT ankle ORIF 11/24/24 NE: Details: Mr. Erickson is a 44-year-old male who presents to the office today stating that he slipped and fell over the weekend. He is status post left ankle ORIF on 11/24/[address] Randolph. 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 Steri-Strips intact. No surrounding erythema or drainage. No signs of infection. No skin breakdown. Able to slightly dorsiflexed and plantar flex. Able to move all digits. Sensation is intact. Pedal pulse intact. Capillary refill is brisk. Calf is supple and n ontender. Negative Homans. Office Procedures Casting/Splints [id number]-[id number] Leg splint application Procedure code (CPT) selection complete Assessment & Plan Assessment & Plan (1) Status post ORIF of fracture of ankle: Code(s): Z98.890 - Other specified postprocedural states; Z87.81 - Personal history of (healed) traumatic fracture Category: Surgical Plan Mr. Erickson is a 44-year-old male who presents to the office today stating that he slipped and fell over the weekend. He is status post left ankle ORIF on 11/24/[address] Randolph. While the office today x-rays were obtained and negative for any acute fracture or dislocation. Orthopedic hardware is intact. The patient was reassured and placed back into a posterior splint. He will continue nonweightbearing. He will follow up at his normally scheduled follow up appointment, sooner if needed. Orders: Orders XR ankle LT min 3V Today M25.579 - Pain in unspecified ankle and joints of unspecified foot Coding Level of Care Code Global (28352) Diagnoses Status post ORIF of fracture of ankle Z98.890; Z87.81 CPT Codes Splint - CPT: 68534-Bfukj Leg splint application ([id number])
--- OUTSIDE RECORDS SUMMARY | 2024-12-07 12:27 | XMS_ITS | Encounter Summary ---
Author Organization [employer] Address [address] [facility] 7t [place] [address] Care Team Providers Care Security System Installer Name Role Phone Diann Ramirez MD Primary Care Provider [phone] Encounter Details Date Type Department Care Team (Late st Contact Info) Description 05/18/2024 Orders Only [facility] MED [facility] PEDS [address] [place], [place] [phone] Provider, MD Shar Social History Tobacco Use [...] Info) Description 12/20/2024 2:00 PM EST Telemedicine [facility] MED & PEDS [address] [place] [address] Naomi Reyes RN [address] [place] [address] 02/15/2025 1:30 PM EDT Office Visit [facility] MED & PEDS [address] [place] [address] Diann Ramirez MD [address] [place] [address] documented as of this encounter Procedures Procedure [...] documented as of this encounter Care Teams Security System Installer Relationship Specialty Start Date End Date Diann Ramirez MD [address] [place] [address] PCP - General Internal Medicine 07/16/12 documented as of this encounter
--- OUTSIDE RECORDS SUMMARY | 2024-12-07 12:27 | XMS_ITS | Encounter Summary ---
Author Organization [employer] Address [address] [facility] 7 [place] [address] Care Team Providers Care Tree Inspector Name Role Phone Diann Ramirez MD Primary Care Provider [phone] Reason for Visit * Reason Onset Date Comments Med Refill 10/25/2022 Encounter Details Date Type Department Care Team (Late st Contact Info) Description 10/25/2022 Telephone [facility] MEDICINE [address] [place], [place] [phone] Diann Ramirez MD [address] [place], [place] [phone] Med Refill Social History Tobacco Use Types [...] Miscellaneous Notes * Telephone Encounter - Jamesrohit Fenrando - 10/25/2022 10:23 AM EST Tc from pt requesting med refill for lorazepam 1 mg. Please contact at [phone] documented in this encounter Plan of Treatment Upcoming Encounters Date Type Department Care Team (Late st Contact Info) Description 12/20/2024 2:00 PM EST Telemedicine [facility] MED & PEDS [address] [place] [address] Naomi Reyes RN [address] [place] [address] 02/15/2025 1:30 PM EDT Office Visit [facility] MED & PEDS [address] [place] [address] Diann Ramirez MD [address] [place] [address] documented as of this encounter Visit Diagnoses Not on filedocumented in this encounter Care Teams Tree Inspector Relationship Specialty Start Date End Date Diann Ramirez MD [address] [place] [address] PCP - General Internal Medicine 07/16/12 documented as of this encounter
--- OUTSIDE RECORDS SUMMARY | 2024-12-07 12:27 | XMS_ITS | Clinical Summary ---
Author Organization [employer] [facility] ity Address [address] [place] [address] Care Team Providers Care Grocery Clerk Stocking Name Role Phone Unavailable Primary Care Provider [...]
--- OUTSIDE RECORDS SUMMARY | 2024-12-07 12:27 | XMS_ITS | Clinical Summary ---
Author Organization [employer] Address [address] [facility] 7t [place] [address] Care Team Providers Care Assurance Senior Manager Insurance Name Role Phone Diann Ramirez MD Primary Care Provider [phone]- [phone] Allergies Active Allergy Reactions Criticality Noted Date [...] 23 Active ergocalciferol (Vitamin D2) 1.25 MG (12290 UT) capsuleIndicati ons:Vitamin D deficiency Take 1 [...] and protective factors. Referral placed sent to [facility] on 07/21 for OP services. Provided [...] Patient to reach out to [facility] team as needed, Patient to engage in [...] and protective factors. Referral placed sent to [facility] on 07/21 for OP services. Provided [...] intervention , Patient to reach out to [facility] team as needed, Patient to engage [...] Type Department Care Team Description 11/24/2024 Refill [facility] MEDICINE [address] [place] [address] Diann Ramirez MD Anxiety 11/15/2024 9:15 AM EST Office Visit [facility] MED & PEDS [address] [place] [address] Diann Ramirez MD Primary hypertension (Primary Dx); Other closed fracture of distal end of left fibula, initial encounter; Dietary counseling; Exercise counseling; Class 2 severe obesity due to excess calories with serious comorbidity and body mass index (BMI) of 35.0 to 35.9 in adult ([facility]) 11/15/2024 Travel 11/11/2024 Orders Only [facility] External Provider, [facility] 10/27/2024 Refill [facility] MED & PEDS [address] [place] [address] Diann Ramirez MD Anxiety 10/01/2024 Telephone [facility] MED & PEDS [address] [place] [address] Diann Ramirez MD Results 10/01/2024 Refill [facility] [address] [place] [address] Diann Ramirez MD Anxiety 10/01/2024 Orders Only [facility] MED & PEDS [address] [place] [address] Diann Ramirez MD Hiatal hernia (Primary Dx) 09/22/2024 9:30 AM EST Clinical Support [facility] MED & PEDS [address] [place] [address] Naomi Reyes RN Anxiety 09/22/2024 Telephone [facility] MED & PEDS [address] [place] [address] Naomi Reyes RN 09/22/2024 Travel from Last 3 Months Immunizations Name Administration [...] [facility] [address] [place] [address] Naomi Reyes RN [address] [place] [address] 02/15/2025 1:30 PM EDT Office Visit [facility] MED & PEDS [address] [place] [address] Diann Ramirez MD [address] [place] [address] Health Maintenance Due Date Last Done Comments [...] ? [address] ?[place] [address] ?XRay Report ? Signed ? Patient: Stopa,Luc J ?MR#: [id number] ?? 78 ? : 1980 ?Acct:[id number] ? Age/Sex: 44 / M ?ADM Date: 11/26/24 ? Loc: HO.HOSX ? Attending Dr: Misha VELASQUEZ ? Ordering Physician: Anna Bennett PA-C ?? Date of Service: 11/26/24 ?? Procedure(s): XR ankle LT min 3V ?? Accession Number(s): [id number] ? cc: Diann Ramirez MD; Anna Bennett [...] DD/ 1103 ? TD/TT: 11/26/24 1112 ? Executive Pilot: ? Procedure Note Colt Avendaño - 11/26/2024 [facility] [address] [place] [address] XRay Report Signed Patient: Luc Erickson JMR#: [id number] [birth year] : 1980Acct:[id number] Age/Sex: 44 / MADM Date: 11/26/24 Loc: IAN Attending Dr: Misha VELASQUEZ Ordering Physician: Anna Bennett PA-C Date of Service: 11/26/24 Procedure(s): XR ankle LT min 3V Accession Number(s): [id number] cc: Diann Ramirez MD; Anna Bennett PA-C [...] 11/26/24 1133 DD/ 1103 TD/TT: 11/26/24 1112 Executive Pilot: [facility] External Provider IMG XR PROCEDURES Final Result * FL Guidance in OR (11/24/2024 2:38 PM EST) Anatomical Region Laterality Modality X-Ray Angiograph y 11/24/2024 2:38 PM EST Narrative 11/25/2024 8:58 AM EST ? [facility] ?[address] ?[place] [address] ? Fluoroscopy Report ? Signed ? Patient: Stopa,Luc J ?MR#: [id number] ?? 78 ? : 1980 ?Acct:[id number] ? Age/Sex: 44 / M ?ADM Date: 11/24/24 ? Loc: HO.SSS ? Attending Dr: Will Randolph MD ? Ordering Physician: Will Randolph MD ?? Date of Service: 11/24/24 ?? Procedure(s): FL guidance in OR ?? Accession Number(s): [id number] ? cc: Diann Ramirez MD; Will Randolph [...] DD/ 1438 ? TD/TT: 11/24/24 1527 ? Executive Pilot: ? Procedure Note Kateryna, Image - 11/25/[address] [address] Fluoroscopy Report Signed Patient: Luc Erickson JMR#: [id number] [birth year] : 1980Acct:[id number] Age/Sex: 44 / MADM Date: 11/24/24 Loc: HO.SSS Attending Dr: Will Randolph MD Ordering Physician: Will Randolph MD Date of Service: 11/24/24 Procedure(s): FL guidance in OR Accession Number(s): [id number] cc: Diann Ramirez MD; Will Randolph MD [...] 11/25/24 0856 DD/ 1438 TD/TT: 11/24/24 1527 Executive Pilot: [facility] External Provider IMG IR PROCEDURES Final Result * XR Tibia Fibula 2 Views Left (11/11/2024 10:45 AM EST) Anatomical Region Laterality Modality Lower Extremities, Lower Leg Left Rad iographic Imaging 11/11/2024 10:4 5 AM EST Narrative 11/11/2024 11:32 AM EST ? [facility] ?[address] ?[place] [address] ?XRay Report ? Signed ? Patient: Stopa,Luc J ?MR#: [id number] ?? 78 ? : 1980 ?Acct:[id number] ? Age/Sex: 44 / M ?ADM Date: 01/23/25 ? Loc: HO.ED ? Attending Dr: ? Ordering Physician: Generic ED Physician ?? Date of Service: 11/11/24 ?? Procedure(s): XR tibia fibula LT 2V ?? Accession Number(s): [id number] ? cc: Diann Rmairez MD; Generic ED Physician ? Examination: Left [...] DD/ 1045 ? TD/TT: 11/11/24 1100 ? Executive Pilot: MSM ? Procedure Note Donoracioter, Image - 11/11/2024 [place] [address] XRay Report Signed Patient: Luc Erickson JMR#: [id number] [birth year] : 1980Acct:[id number] Age/Sex: 44 / MADM Date: 11/11/24 Loc: HO.ED Attending Dr: Ordering Physician: Generic ED Physician Date of Service: 11/11/24 Procedure(s): XR tibia fibula LT 2V Accession Number(s): [id number] cc: Diann Ramirez MD; Generic ED Physician [...] 11/11/24 1129 DD/ 1045 TD/TT: 11/11/24 1100 Executive Pilot: MSM us [facility] External Provider IMG XR PROCEDURES Final Result * FL Esophagus Barium Swallow (09/30/2024 8:33 AM EST) Anatomical Region Laterality Modality Head, Neck Radiographic Lacey ging 09/30/2024 8:33 AM EST Narrative 09/30/2024 4:36 PM EST ? [facility] ?[address] ?[place], [place] [address] ? Fluoroscopy Report ? Signed ? Patient: Stopa,Luc J ?MR#: [id number] ?? [birth year] ? : 1980 ?Acct:[id number] ? Age/Sex: 44 / M ?ADM Date: 09/30/24 ? Loc: HO.XRAY ? Attending Dr: Diann Ramirez MD ? Ordering Physician: Diann Ramirez MD ?? Date of Service: 09/30/24 ?? Procedure(s): FL barium swallow ?? Accession Number(s): [id number] ? cc: Diann Ramirez MD ? EXAMINATION: [...] ??09/30/2024 04:33 PM EST RP ?? Workstation: [id number] ? Dictated By: ?Perfecto Babb ? Signed By: ?<Electronically signed by Perfecto Babb in OV> ? 09/30/24 1633 ?<Electronically signed by Carter Ruiz MD in OV> ? 09/30/24 1636 ? DD/ 0833 ? TD/TT: 09/30/24 0904 ? Executive Pilot: ? Procedure Note Kateryna, Image - 10/01/[address] [address] Fluoroscopy Report Signed Patient: Luc Erickson JMR#: [id number] [birth year] : 1980Acct:[id number] Age/Sex: 44 / MADM Date: 09/30/24 Loc: [place] Attending Dr: Diann Ramirez MD Ordering Physician: Diann Ramirez MD Date of Service: 09/30/24 Procedure(s): FL barium swallow Accession Number(s): [id number] cc: Diann Ramirez MD EXAMINATION: XR FLUOROSCOPY [...] Carter Ruiz MD 09/30/2024 04:33 PM EST Dictated By: Perfecto Babb Signed By: <Electronically signed by Perfecto Babb in OV> 09/30/24 1633 <Electronically signed by Carter Ruiz MD in OV> 09/30/24 1636 DD/ 0833 TD/TT: 09/30/24 0904 Executive Pilot: us Diann Ramirez MD IMG FLUOROSCOPY PROCEDURES Edited Result - Final * POCT COLLIN-14 Urine Drug Screen (09/22/2024 9:58 AM EST) Benzodiazepines Screen, Urine Positive Buprenophine Screen, Urine Positive Urine Urine specimen obtained by clean catch procedure / Unknown 09/22/2024 9:58 AM EST Narrative Naomi Reyes RN - 09/22/2024 9:58 AM EST Lot# [id number] Exp: 09-25-25 us Diann Ramirez MD POINT OF CARE TEST ENTER/ED IT ORDERABLES Final Result * (ABNORMAL) Lipid Panel, Standard (03/11/2024 1:07 PM EDT) Triglycerides 40 <150 mg/dL [facility] Comment:Desirable Triglyceri de: less than 150 mg/dLBorderline High Triglyceride 150-199 mg/dLHigh Triglyceride: 200-499 mg/dLVery High Triglyceride: greater than or equal to 5OO mg/dL Cholesterol 141 <200 mg/dL [facility] Comment:Desirable Cholestero l: less than 200 mg/dLBorderline High Cholesterol: 200-239 mg/dLHigh Cholesterol: greater than 239 mg/dL LDL Cholesterol Calculated 93 <100 mg/dL [facility] Comment:Desirable LDL: less than 100 mg/dLNear Optimal/Above Optimal LDL: 110- 129 mg/dLBorderline High LDL: 130-159 mg/dLHigh LDL: 160-189 mg/dLVery High LDL: greater than or equal to 190 mg/dL HDL Cholesterol 40(L) >40 mg/dL [facility] Comment:Desirable HDL: great er than 40 mg/dL Note: This HDL assay may give artificially low results in patients with liver disease. Blood Venous blood specimen / Unknown 03/11/2024 1:07 PM EDT 03/11/2024 2:22 PM EDT us Diann Ramirez MD LAB BLOOD ORDERABLES Final Result Performing Organization Address City/[facility]/ZIP Co de Phone Number [facility] [address] [place] [address] [phone] * HIV AB/AG (08/07/2022 2:03 PM EDT) Pathologist [facility] HIV AB/AG Nonreactive Nonreactive [facility] Comment: HIV-1 p24 Ag and/or HIV-1/HIV-2 [...] detection of this assay. ?? [employer] Business Continuity Planning Director HIV Ag/Ab Combo assay result and supplemental assay results should be interpreted in conjunction with the patient's clinical presentation, history and other laboratory results. ??If the results are inconsistent with clinical evidence, additional testing is suggested to confirm the result. 08/07/2022 2:03 PM EDT us Tra Linton MD HISTORICAL/NON ORDERAB LE LABS Final Result [facility] * HEPATITIS C AB W/REFL TO HCV RNA, QN, PCR (07/01/2022 10:13 AM EDT) Pathologist [facility] HEPATITIS C ANTIBODY NON-REACT [facility] NON-REACT [facility] INDEX 0.14 <1.00 [facility] Comment: ?? HCV antibody was non-reactive. There is no laboratory ?? evidence of HCV infection. ?? In most cases, no further action is required. However, if recent HCV exposure is suspected, a test for HCV RNA (test code 45029) is suggested. ?? For additional information please refer to http://[email or web address].TruQC/faq/HQR37w6 (This link is being provided for informational/ educational purposes only.) ?? 07/01/2022 10:1 3 AM EDT us Diann Ramirez MD HISTORICAL/NON ORDERABLE LA BS Final Result [facility] [address] [place] [address], from Last 3 Months or Most Recently Relevant to Health Maintenance Insurance Care Teams Assurance Senior Manager Insurance Relationship Specialty Start Date End Date Diann Ramirez MD [address] [place] [address] PCP - General Internal Medicine 07/16/12
--- OUTSIDE RECORDS SUMMARY | 2024-12-07 12:27 | XMS_ITS | Encounter Summary ---
Author Organization [employer] Address 75 [facility] 7t [place] [address] Care Team Providers Care Fountain Pen Turner Name Role Phone Diann Ramirez MD Primary Care Provider [phone] Encounter Details Date Type Department Care Team (Late st Contact Info) Description 10/01/2024 Orders Only [facility] MED & PEDS [address] [place], [place] [phone] Diann Ramirez MD 505 [place] [address] Hiatal hernia (Primary Dx) Social History Tobacco [...] [facility] [address] [place] [address] Naomi Reyes RN 505 [place] [address] 02/15/2025 1:30 PM EDT Office Visit [facility] MED & PEDS [address] [place] [address] Diann Ramirez MD 505 [place] [address] documented as of this encounter Visit Diagnoses Diagnosis Hiatal hernia- Primary Diaphragmatic hernia without mention of obstruction or gangrene documented in this encounter Additional Health Concerns Assessment Noted Time PHQ-9 Depression Total Score: 4 03/20/20 24 9:12 AM EDT documented as of this encounter Care Teams Fountain Pen Turner Relationship Specialty Start Date End Date Diann Ramirez MD 505 [place] [address] PCP - General Internal Medicine 07/16/12 documented as of this encounter
--- OUTSIDE RECORDS SUMMARY | 2024-12-07 12:27 | XMS_ITS | Encounter Summary ---
Author Organization [employer] Address 75 [facility] 7 [place] [address] Care Team Providers Care Toucher Up Name Role Phone Diann Ramirez MD Primary Care Provider [phone] Reason for Visit * Reason Onset Date Comments Med Refill 05/31/2024 Encounter Details Date Type Department Care Team (Late st Contact Info) Description 05/31/2024 Telephone [facility] MEDICINE [address] [place] [address] Diann Ramirez MD 505 [place] [address] Med Refill Social History Tobacco Use Types [...] 1 MG tablet To be sent to: [id number] - [place] - 1 [facility] [place] [facility] documented in this encounter Plan of Treatment Upcoming Encounters Date Type Department Care Team (Late st Contact Info) Description 12/20/2024 2:00 PM EST Telemedicine [facility] MED & PEDS [address] [place] [address] Naomi Reyes RN 505 [place] [address] 02/15/2025 1:30 PM EDT Office Visit [facility] MED & PEDS [address] [place] [address] Diann Ramirez MD 505 [place] [address] documented as of this encounter Visit Diagnoses Not on filedocumented in this encounter Additional Health Concerns Assessment Noted Time PHQ-9 Depression Total Score: 4 03/20/20 24 9:12 AM EDT documented as of this encounter Care Teams Toucher Up Relationship Specialty Start Date End Date Diann Ramirez MD [address] [place] [address] PCP - General Internal Medicine 07/16/12 documented as of this encounter
--- OUTSIDE RECORDS SUMMARY | 2024-12-07 12:27 | XMS_ITS | Encounter Summary ---
Author Organization [employer] Address 75 [facility] 7 [place] [address] Care Team Providers Care Bath Attendant Name Role Phone Diann Ramirez MD Primary Care Provider [phone] Reason for Visit * Reason Onset Date Comments Referral 08/09/2024 Encounter Details Date Type Department Care Team (Late st Contact Info) Description 08/09/2024 Telephone [facility] MEDICINE 230 [place] [address] Diann Ramirez MD [address] [place], [place] [phone] Referral Social History Tobacco Use Types Packs/Day [...] Jimenez RN - 08/14/2024 12:07 PM EDT [facility] message informing pt referral for Neuro was sent to [facility] Neuro and pt should get a [...] [facility] [address] [place] [address] Naomi Reyes RN 505 [place] [address] 02/15/2025 1:30 PM EDT Office Visit [facility] MED & PEDS 505 [place] [address] Diann Ramirez MD [address] [place] [address] documented as of this encounter Visit Diagnoses Not on filedocumented in this encounter Additional Health Concerns Assessment Noted Time PHQ-9 Depression Total Score: 4 03/20/20 24 9:12 AM EDT documented as of this encounter Care Teams Bath Attendant Relationship Specialty Start Date End Date Diann Ramirez MD [address] [place] [address] PCP - General Internal Medicine 07/16/12 documented as of this encounter
--- OUTSIDE RECORDS SUMMARY | 2024-12-07 12:27 | XMS_ITS | Encounter Summary ---
Author Organization [employer] Address 75 [facility] 7 [place] [address] Care Team Providers Care Sales Service Coordinator Name Role Phone Diann Ramirez MD Primary Care Provider [phone] Reason for Visit * Reason Onset Date Comments Referral 11/21/2022 Encounter Details Date Type Department Care Team (Late st Contact Info) Description 11/21/2022 Telephone [facility] MEDICINE [address] [place] [address] Diann Ramirez MD 505 [place] [address] Referral Social History Tobacco Use Types Packs/Day [...] by Dr Linton Please contact pt at [phone] Please see above message. Thanks * Telephone Encounter - Mario Tavaresos - 11/21/2022 2:42 PM EST Tc from pt requesting a new referral for neurologist states don't want to be seen by Dr Linton Please contact pt at [phone] documented in this encounter Plan of Treatment Upcoming Encounters Date Type Department Care Team (Late st Contact Info) Description 12/20/2024 2:00 PM EST Telemedicine [facility] MED & PEDS 505 [place] [address] Naomi Reyes RN 505 [place] [address] 02/15/2025 1:30 PM EDT Office Visit [facility] MED & PEDS [address] [place] [address] Diann Ramirez MD 505 [place] [address] documented as of this encounter Visit Diagnoses Diagnosis Chronic cluster headache, not intractable- Primary documented in this encounter Additional Health Concerns Assessment Noted Time PHQ-9 Depression Total Score: 1 10/31/19 23 3:59 PM EST documented as of this encounter Care Teams Sales Service Coordinator Relationship Specialty Start Date End Date Diann Ramirez MD 505 [place] [address] PCP - General Internal Medicine 07/16/12 documented as of this encounter
--- OUTSIDE RECORDS SUMMARY | 2024-12-07 12:27 | XMS_ITS | Encounter Summary ---
Author Organization [employer] Address 75 [facility] 7 [place] [address] Care Team Providers Care Dog Handler Or Trainer Name Role Phone Diann Ramirez MD Primary Care Provider [phone] Reason for Visit * Reason Onset Date Comments Med Refill 07/28/2024 Encounter Details Date Type Department Care Team (Late st Contact Info) Description 07/28/2024 Telephone [facility] MEDICINE 230 [place] [address] Diann Ramirez MD [address] [place], [place] [phone] Med Refill Social History Tobacco Use Types [...] 1 MG tablet To be sent to: [id number] - [place] - [address] [place] [facility] documented in this encounter Plan of Treatment Upcoming Encounters Date Type Department Care Team (Late st Contact Info) Description 12/20/2024 2:00 PM EST Telemedicine [facility] MED & PEDS [address] [place] [address] Naomi Reyes RN 505 [place] [address] 02/15/2025 1:30 PM EDT Office Visit [facility] MED & PEDS [address] [place] [address] Diann Ramirez MD [address] [place] [address] documented as of this encounter Visit Diagnoses Not on filedocumented in this encounter Additional Health Concerns Assessment Noted Time PHQ-9 Depression Total Score: 4 03/20/20 24 9:12 AM EDT documented as of this encounter Care Teams Dog Handler Or Trainer Relationship Specialty Start Date End Date Diann Ramirez MD [address] [place] [address] PCP - General Internal Medicine 07/16/12 documented as of this encounter
--- OUTSIDE RECORDS SUMMARY | 2024-12-07 12:27 | XMS_ITS | Encounter Summary ---
Author Organization [employer] Address 75 [facility] 7 [place] [address] Care Team Providers Care Farm Instructor Name Role Phone Diann Ramirez MD Primary Care Provider [phone] Reason for Visit * Reason Onset Date Comments Appointment Request 06/11/2024 Encounter Details Date Type Department Care Team ([facility] st Contact Info) Description 06/11/2024 Telephone [facility] MEDICINE [address] [place] [address] Diann Ramirez MD [address] [place] [address] Appointment Request Social History Tobacco Use Types [...] Tc from pt calling in regards to [employer] visit from 06/18 that was canceled and is requesting to reschedule. Please contact pt at [phone]. documented in this encounter Plan of Treatment Upcoming Encounters Date Type Department Care Team (Late st Contact Info) Description 12/20/2024 2:00 PM EST Telemedicine [facility] MED & PEDS [address] [place] [address] Naomi Reyes RN 505 [place] [address] 02/15/2025 1:30 PM EDT Office Visit [facility] MED & PEDS [address] [place] [address] Diann Ramirez MD 505 [place] [address] documented as of this encounter Visit Diagnoses Not on filedocumented in this encounter Additional Health Concerns Assessment Noted Time PHQ-9 Depression Total Score: 4 03/20/20 24 9:12 AM EDT documented as of this encounter Care Teams Farm Instructor Relationship Specialty Start Date End Date Diann Ramirez MD [address] [place] [address] PCP - General Internal Medicine 9/27/12 documented as of this encounter
--- OUTSIDE RECORDS SUMMARY | 2024-12-07 12:27 | XMS_ITS | Encounter Summary ---
Author Organization [employer] Address 75 [facility] 7t [place] [address] Care Team Providers Care Glass Bead Maker Name Role Phone Diann Ramirez MD Primary Care Provider [phone] Encounter Details Date Type Department Care Team (Late Contact Info) Description 10/18/2022 Orders Only [facility] MEDICINE [address] [place] [address] Diann Ramirez MD [address] [place], [place] [phone] Acute cough; Bronchospasm Social History Tobacco Use [...] Info) Description 12/20/2024 2:00 PM EST Telemedicine [facility] CHC MED & PEDS [address] [place], [place] [phone] Naomi Reyes, TABATHA 505 [place], [place] [phone] 02/15/2025 1:30 PM EDT Office Visit [facility] MED & PEDS [address] [place] [address] Diann Ramirez MD 505 [place] [address] documented as of this encounter Visit Diagnoses Diagnosis Acute cough Bronchospasm Acute bronchospasm documented in this encounter Care Teams Glass Bead Maker Relationship Specialty Start Date End Date Diann Ramirez MD 505 [place] [address] PCP - General Internal Medicine 07/16/12 documented as of this encounter
--- OUTSIDE RECORDS SUMMARY | 2024-12-07 12:27 | XMS_ITS | Encounter Summary ---
Author Organization [employer] Address 75 [facility] 7 [place] [address] Care Team Providers Care Contour Path Tape Mill Operator Name Role Phone Diann Ramirez MD Primary Care Provider [phone] Reason for Visit * Reason Comments Hypertension Encounter Details Date Type Department Care Team ([facility] st Contact Info) Description 11/15/2024 9:15 AM EST Office Visit [facility] CHC MED & PEDS [address] [place], [place] [phone] Diann Ramirez MD 505 [place] [address] Primary hypertension (Primary Dx); Other closed fracture of distal end of left fibula, initial encounter; Dietary counseling; Exercise counseling; Class 2 severe obesity due to excess calories with serious comorbidity and body mass index (BMI) of 35.0 to 35.9 in adult ([facility]) Social History Tobacco Use Types Packs/Day [...] a distal fibula oblique fracture and Achilles tendoninjury. The x-ray of the left ankle initially revealed the impression of mild medial malleolar fract ure. During the visit on November 13 he [...] index (BMI) of35.0 to 35.9 in adult ([facility]) Discussed calorie deficit, recommended reduction of 20-30% of maintenance calories; metallic yarn slitting machine operator referral offered. Recommended to decrease soda and sugary beverage consumption. Recommended at least 20 g per meal of protein to assist with satiety. Recommended at least 150 min/week of moderate intensity exercise. documented in this encounter Plan of Treatment Upcoming Encounters Date Type Department Care Team (Late st Contact Info) Description 12/20/2024 2:00 PM EST Telemedicine [facility] MED & PEDS [address] [place] [address] Naomi Reyes RN 505 [place] [address] 02/15/2025 1:30 PM EDT Office Visit [facility] MED & PEDS [address] [place] [address] Diann Ramirez MD [address] [place] [address] documented as of this encounter Visit Diagnoses Diagnosis Primary hypertension- Primary Unspecified essential hypertension Other closed fracture of distal end of left fibula, initial encounter Dietary counseling Dietary surveillance and counseling Exercise counseling Class 2 severe obesity due to excess calories with serious comorbidity and body mass index (BMI) of 35.0 to 35.9 in adult ([facility]) documented in this encounter Additional Health Concerns Assessment Noted Time PHQ-9 Depression Total Score: 4 03/20/20 24 9:12 AM EDT documented as of this encounter Care Teams Contour Path Tape Mill Operator Relationship Specialty Start Date End Date Diann Ramirez MD [address] [place] [address] PCP - General Internal Medicine 07/16/12 documented as of this encounter
--- OUTSIDE RECORDS SUMMARY | 2024-12-07 12:27 | XMS_ITS | Encounter Summary ---
Author Organization [employer] Address 75 [facility] 7 [place] [address] Care Team Providers Care Sleever Name Role Phone Diann Ramirez MD Primary Care Provider [phone] Reason for Visit * Reason Onset Date Comments Appointment Request 06/17/2024 Encounter Details Date Type Department Care Team ([facility] st Contact Info) Description 06/17/2024 Telephone [facility] MEDICINE [address] [place], [place] [phone] Diann Ramirez MD 505 [place] [address] Appointment Request Social History Tobacco Use Types [...] [facility] MED & PEDS [address] [place] [address] Naomi Reyes RN 505 [place] [address] 02/15/2025 1:30 PM EDT Office Visit [facility] MED & PEDS [address] [place] [address] Diann Ramirez MD [address] [place] [address] documented as of this encounter Visit Diagnoses Not on filedocumented in this encounter Additional Health Concerns Assessment Noted Time PHQ-9 Depression Total Score: 4 03/20/20 24 9:12 AM EDT documented as of this encounter Care Teams Sleever Relationship Specialty Start Date End Date Diann Ramirez MD [address] [place] [address] PCP - General Internal Medicine 07/16/12 documented as of this encounter
--- OUTSIDE RECORDS SUMMARY | 2024-12-07 12:27 | XMS_ITS | Encounter Summary ---
Author Organization [employer] Address [address] [place] [address] 7 [place] [address] Care Team Providers Care Direct Care Specialist Name Role Phone Diann Ramirez MD Primary Care Provider [phone] Reason for Referral * Consultation (Routine) - Closed Specialty Diagnoses / Procedures Referred By Contcary t Referred To Contact Behavioral Health Diagnoses Anxiety Diann Ramirez MD [address] [place] [address] Phone: tel: fax: Referral ID Status Reason Start Date Expiration Date V isits Requested Visits Authorized [id number] Closed Specialty Services Required 03/30/2024 03/30/2025 1 1 Encounter Details Date Type Department Care Team ([facility] Contact Info) Description 03/30/2024 Orders Only [facility] CHC MED & PEDS [address] [place] [address] Diann Ramirez MD [address] [place] [address] Anxiety (Primary Dx) Social History Tobacco Use [...] [facility] MED & PEDS [address] [place] [address] Naomi Reyes RN [address] [place] [address] 02/15/2025 1:30 PM EDT Office Visit [facility] MED & PEDS [address] [place] [address] Diann Ramirez MD [address] [place] [address] Scheduled Referrals Name Type Priority Associated Diagnoses Order Schedule Referral to Behavioral Health Outpatient Referral Routine Anxiety Expected: 03/30/2024 (Approximate), Expires: 03/30/2025 documented as of this encounter Visit Diagnoses Diagnosis Anxiety- Primary Anxiety state, unspecified documented in this encounter Additional Health Concerns Assessment Noted Time PHQ-9 Depression Total Score: 4 03/20/20 24 9:12 AM EDT documented as of this encounter Care Teams Direct Care Specialist Relationship Specialty Start Date End Date Diann Ramirez MD [address] [place] [address] PCP - General Internal Medicine 07/16/12 documented as of this encounter
--- OUTSIDE RECORDS SUMMARY | 2024-12-07 12:27 | XMS_ITS | Encounter Summary ---
Author Organization [employer] Address 75 [facility] 7 [place] [address] Care Team Providers Care Traffic Division Commanding Officer Name Role Phone Diann Ramirez MD Primary Care Provider [phone] Reason for Visit * Reason Onset Date Comments Med Refill 11/24/2024 Encounter Details Date Type Department Care Team (Late st Contact Info) Description 11/24/2024 Refill [facility] MEDICINE [address] [place] [address] Diann Ramirez MD [address] [place] [address] Anxiety Social History Tobacco Use Types Packs/Day [...] 1 MG tablet To be sent to: [facility][id number] - [place] - 1 [facility] [place] [facility] documented in this encounter Plan of Treatment Upcoming Encounters Date Type Department Care Team (Late st Contact Info) Description 12/20/2024 2:00 PM EST Telemedicine [facility] MED & PEDS [address] [place] [address] Naomi Reyes RN 505 [place] [address] 02/15/2025 1:30 PM EDT Office Visit [facility] MED & PEDS [address] [place] [address] Diann Ramirez MD [address] [place] [address] documented as of this encounter Visit Diagnoses Diagnosis Anxiety Anxiety state, unspecified documented in this encounter Additional Health Concerns Assessment Noted Time PHQ-9 Depression Total Score: 4 03/20/20 24 9:12 AM EDT documented as of this encounter Care Teams Traffic Division Commanding Officer Relationship Specialty Start Date End Date Diann Ramirez MD [address] [place] [address] PCP - General Internal Medicine 07/16/12 documented as of this encounter
--- OUTSIDE RECORDS SUMMARY | 2024-12-07 12:27 | XMS_ITS | Encounter Summary ---
Author Organization [employer] Address [address] [place] [address] Care Team Providers Care Can Sealer Name Role Phone Diann Ramirez MD Primary Care Provider [phone] Reason for Visit * Reason Onset Date Comments Appointment Request 01/06/2023 Encounter Details Date Type Department Care Team (Late st Contact Info) Description 01/06/2023 Telephone [facility] MEDICINE [address] [place] [address] Diann Ramirez MD [address] [place] [address] Appointment Request Social History Tobacco Use Types [...] requesting to r/s appt on 01/06/23 ( CHILD CARE DEVELOPMENT SPECIALIST Televisit ) documented in this encounter Plan of Treatment Upcoming Encounters Date Type Department Care Team (Late st Contact Info) Description 12/20/2024 2:00 PM EST Telemedicine [facility] MED & PEDS [address] [place] [address] Naomi Reyes, RN 505 [place] [address] 02/15/2025 1:30 PM EDT Office Visit [facility] MED & PEDS [address] [place] [address] Diann Ramirez MD [address] [place] [address] documented as of this encounter Visit Diagnoses Not on filedocumented in this encounter Additional Health Concerns Assessment Noted Time PHQ-9 Depression Total Score: 1 10/31/19 23 3:59 PM EST documented as of this encounter Care Teams Can Sealer Relationship Specialty Start Date End Date Diann Ramirez MD [address] [place] [address] PCP - General Internal Medicine 07/16/12 documented as of this encounter
--- OUTSIDE RECORDS SUMMARY | 2024-12-07 12:27 | XMS_ITS | Encounter Summary ---
Author Organization [employer] Address [address] [facility] 7t [place] [address] Care Team Providers Care Exceptional Children Teacher Assistant Name Role Phone Diann Ramirez MD Primary Care Provider +1 [phone] Encounter Details Date Type Department Care Team (Late st Contact Info) Description 11/11/2024 Orders Only [facility] External Provider, [facility] Social History Tobacco Use Types Packs/Day [...] [facility] [address] [place] [address] aNomi Reyes RN [address] [place] [address] 02/15/2025 1:30 PM EDT Office Visit [facility] [address] [place] [address] Diann Ramirez MD [address] [place] [address] documented as of this encounter Procedures Procedure [...] EST Narrative 11/26/2024 11:36 AM EST ? [facility] ? [address] ?[place] [address] ?XRay Report ? Signed ? Patient: Stopa,Luc J ?MR#: [id number] ?? 78 ? : 1980 ?Acct:[id number] ? Age/Sex: 44 / M ?ADM Date: 11/26/24 ? Loc: HO.HOSX ? Attending Dr: Misha VELASQUEZ ? Ordering Physician: Anna Bennett PA-C ?? Date of Service: 11/26/24 ?? Procedure(s): XR ankle LT min 3V ?? Accession Number(s): [id number] ? cc: Diann Ramirez MD; Anna Bennett [...] DD/ 1103 ? TD/TT: 11/26/24 1112 ? Microfilm Duplicating Unit Supervisor: ? Procedure Note Colt Avendaño - 11/26/2024 [facility] [address] [facility] [address] [place] [address] XRay Report Signed Patient: Luc Erickson JMR#: [id number] 78 : 1980Acct:[id number] Age/Sex: 44 / MADM Date: 11/26/24 Loc: HO.HOSX Attending Dr: Misha VELASQUEZ Ordering Physician: Anna Bennett PA-C Date of Service: 11/26/24 Procedure(s): XR ankle LT min 3V Accession Number(s): [id number] cc: Diann Ramirez MD; Anna Bennett PA-C [...] 11/26/24 1133 DD/ 1103 TD/TT: 11/26/24 1112 Microfilm Duplicating Unit Supervisor: [facility] External Provider IMG XR PROCEDURES Final Result * FL Guidance in OR (11/24/2024 2:38 PM EST) Anatomical Region Laterality Modality X-Ray Angiograph y 11/24/2024 2:38 PM EST Narrative 11/25/2024 8:58 AM EST ? [facility] ?[address] ?[place] [address] ? Fluoroscopy Report ? Signed ? Patient: Stopa,Luc J ?MR#: [id number] ?? 78 ? : 1980 ?Acct:[id number] ? Age/Sex: 44 / M ?ADM Date: 02/05/25 ? Loc: HO.SSS ? Attending Dr: Will Randolph MD ? Ordering Physician: Will Randolph MD ?? Date of Service: 11/24/24 ?? Procedure(s): FL guidance in OR ?? Accession Number(s): [id number] ? cc: Diann Ramirez MD; Will Randolph [...] DD/ 1438 ? TD/TT: 11/24/24 1527 ? Microfilm Duplicating Unit Supervisor: ? Procedure Note Kateryna, Image - 11/25/[address] [address] Fluoroscopy Report Signed Patient: Luc Erickson JMR#: [id number] [birth year] : 1980Acct:[id number] Age/Sex: 44 / MADM Date: 11/24/24 Loc: HO.SSS Attending Dr: Will Randolph MD Ordering Physician: Will Randolph MD Date of Service: 11/24/24 Procedure(s): FL guidance in OR Accession Number(s): [id number] cc: Diann Ramirez MD; Will Randolph MD [...] 11/25/24 0856 DD/ 1438 TD/TT: 11/24/24 1527 Microfilm Duplicating Unit Supervisor: [facility] External Provider IMG IR PROCEDURES Final Result * XR Ankle 3+ Views Left (11/15/2024 1:17 PM EST) Anatomical Region Laterality Modality Lower Extremities, Ankle Left Radiogr aphic Imaging 11/15/2024 1:17 PM EST Narrative 11/15/2024 3:30 PM EST ? [facility] ? [address] ?[place] [address] ?XRay Report ? Signed ? Patient: Luc Erickson J ?MR#: [id number] ?? 78 ? : 1980 ?Acct:[id number] ? Age/Sex: 44 / M ?ADM Date: 11/15/ ? Loc: HO.HOSX ? Attending Dr: Shreya Whelan PA-C ? Ordering Physician: Shreya Whelan PA-C ?? Date of Service: 01/27/25 ?? Procedure(s): XR ankle LT min 3V ?? Accession Number(s): [id number] ? cc: Diann Ramirez MD; Shreya Whelan [...] DD/ 1317 ? TD/TT: 11/15/24 1320 ? Microfilm Duplicating Unit Supervisor: ? Procedure Note Donalan, Image - 11/15/2024 [facility] [address] [place] [address] [address] [place] [address] XRay Report Signed Patient: Luc Erickson JMR#: [id number] 78 : 1980Acct:[id number] Age/Sex: 44 / MADM Date: 11/15/24 Loc: [facility] Attending Dr: Shreya Whelan PA-C Ordering Physician: Shreya Whelan PA-C Date of Service: 11/15/24 Procedure(s): XR ankle LT min 3V Accession Number(s): [id number] cc: Diann Ramirez MD; Shreya Whelan PA-C [...] 11/15/24 1527 DD/ 1317 TD/TT: 11/15/24 1320 Microfilm Duplicating Unit Supervisor: [facility] External Provider IMG XR PROCEDURES Final Result * XR Tibia Fibula 2 Views Left (11/11/2024 10:45 AM EST) Anatomical Region Laterality Modality Lower Extremities, Lower Leg Left Rad iographic Imaging 11/11/2024 10:4 5 AM EST Narrative 11/11/2024 11:32 AM EST ? [facility] ?[address] ?[place] [address] ?XRay Report ? Signed ? Patient: Luc Erickson ?MR#: [id number] ?? 78 ? : 1980 ?Acct:[id number] ? Age/Sex: 44 / M ?ADM Date: 11/11/24 ? Loc: HO.ED ? Attending Dr: ? Ordering Physician: Generic ED Physician ?? Date of Service: 11/11/24 ?? Procedure(s): XR tibia fibula LT 2V ?? Accession Number(s): [id number] ? cc: Diann Ramirez MD; Generic ED [...] DD/ 1045 ? TD/TT: 11/11/24 1100 ? Microfilm Duplicating Unit Supervisor: MSM ? Procedure Note Donerikainterpreter, Image - 11/11/[address] [address] XRay Report Signed Patient: Luc rEickson JMR#: [id number] [birth year] : 1980Acct:[id number] Age/Sex: 44 / MADM Date: 11/11/24 Loc: HO.ED Attending Dr: Ordering Physician: Generic ED Physician Date of Service: 11/11/24 Procedure(s): XR tibia fibula LT 2V Accession Number(s): [id number] cc: Diann Ramirez MD; Generic ED Physician [...] 11/11/24 1129 DD/ 1045 TD/TT: 11/11/24 1100 Microfilm Duplicating Unit Supervisor: FEMI [facility] External Provider IMG XR PROCEDURES Final Result * XR Ankle 3+ Views Left (11/11/2024 10:45 AM EST) Anatomical Region Laterality Modality Lower Extremities, Ankle Left Radiogr aphic Imaging 11/11/2024 10:4 5 AM EST Narrative 11/11/2024 11:32 AM EST ? [facility] ?[address] ?[place] [address] ?XRay Report ? Signed ? Patient: Stopa,Luc J ?MR#: [id number] ?? 78 ? : 1980 ?Acct:[id number] ? Age/Sex: 44 / M ?ADM Date: 01/23/25 ? Loc: HO.ED ? Attending Dr: ? Ordering Physician: Generic ED Physician ?? Date of Service: 11/11/24 ?? Procedure(s): XR ankle LT min 3V ?? Accession Number(s): [id number] ? cc: Diann Ramirez MD; Generic ED [...] ? Signed By: ?<Electronically signed by Liavn Swenson MD in OV> ?11/11/24 1129 ? DD/ 1045 ? TD/TT: 11/11/24 1100 ? Microfilm Duplicating Unit Supervisor: MSM ? Procedure Note Colt Avendaño - 11/11/[address] [address] XRay Report Signed Patient: Luc Erickson JMR#: [id number] [birth year] : 1980Acct:[id number] Age/Sex: 44 / MADM Date: 11/11/24 Loc: HO.ED Attending Dr: Ordering Physician: Generic ED Physician Date of Service: 11/11/24 Procedure(s): XR ankle LT min 3V Accession Number(s): [id number] cc: Diann Ramirez MD; Generic ED Physician [...] 11/11/24 1129 DD/ 1045 TD/TT: 11/11/24 1100 Microfilm Duplicating Unit Supervisor: FEMI [facility] External Provider IMG XR PROCEDURES Final Result documented in this encounter Visit Diagnoses Not on filedocumented in this encounter Additional Health Concerns Assessment Noted Time PHQ-9 Depression Total Score: 4 03/20/20 24 9:12 AM EDT documented as of this encounter Care Teams Exceptional Children Teacher Assistant Relationship Specialty Start Date End Date Diann Ramirez MD [address] [place] [address] PCP - General Internal Medicine 07/16/12 documented as of this encounter
--- OUTSIDE RECORDS SUMMARY | 2024-12-07 12:27 | XMS_ITS | Encounter Summary ---
Author Organization [employer] Address [address] [facility] [address] 7[address] [place] [address] Care Team Providers Care Director Retirement Name Role Phone Diann Ramirez MD Primary Care Provider [phone] Encounter Details Date Type Department Care Team [...] Info) Description 12/20/2024 2:00 PM EST Telemedicine [facility] [address] [place] [address] Naomi Reyes RN [address] [place] [address] 02/15/2025 1:30 PM EDT Office Visit [facility] [address] [place] [address] Diann Ramirez MD [address] [place] [address] documented as of this encounter Visit Diagnoses Not on filedocumented in this encounter Additional Health Concerns Assessment Noted Time PHQ-9 Depression Total Score: 4 03/20/20 24 9:12 AM EDT documented as of this encounter Care Teams Director Retirement Relationship Specialty Start Date End Date Diann Ramirez MD [address] [place] [address] PCP - General Internal Medicine 07/16/12 documented as of this encounter
--- OUTSIDE RECORDS SUMMARY | 2024-12-07 12:27 | XMS_ITS | Encounter Summary ---
Author Organization [employer] Address [address] [facility] 7 [place] [address] Care Team Providers Care Neurourologist Name Role Phone Diann Ramirez MD Primary Care Provider [phone] Reason for Visit * Reason Onset Date Comments Appointment Request 01/13/2024 Encounter Details Date Type Department Care Team (Late st Contact Info) Description 01/13/2024 Telephone [facility] [address] [place] [address] Diann Ramirez MD [address] [place] [address] Appointment Request Social History Tobacco Use Types [...] [facility] [address] [place] [address] Naomi Reyes, TABATHA [address] [place] [address] 02/15/2025 1:30 PM EDT Office Visit [facility] [address] [place] [address] Diann Ramirez MD [address] [place] [address] documented as of this encounter Visit Diagnoses Not on filedocumented in this encounter Additional Health Concerns Assessment Noted Time PHQ-9 Depression Total Score: 1 10/31/19 23 3:59 PM EST documented as of this encounter Care Teams Neurourologist Relationship Specialty Start Date End Date Diann Ramirez MD [address] [place] [address] PCP - General Internal Medicine 07/16/12 documented as of this encounter
--- OUTSIDE RECORDS SUMMARY | 2024-12-07 12:27 | XMS_ITS | Encounter Summary ---
Author Organization [employer] Address [address] [facility] 7 [place] [address] Care Team Providers Care Reading Professor Name Role Phone Diann Ramirez MD Primary Care Provider [phone] Reason for Visit * Reason Onset Date Comments Med Refill 11/25/2022 Encounter Details Date Type Department Care Team (Late st Contact Info) Description 11/25/2022 Telephone [facility] [address] [place] [address] Diann Ramirez MD [address] [place] [address] Med Refill Social History Tobacco Use Types [...] 12/20/2024 2:00 PM EST Telemedicine [facility] [address] [place] [address] Naomi Reyes RN [address] [place] [address] 02/15/2025 1:30 PM EDT Office Visit [facility] [address] [place] [address] Diann Ramirez MD [address] [place] [address] documented as of this encounter Visit Diagnoses Not on filedocumented in this encounter Additional Health Concerns Assessment Noted Time PHQ-9 Depression Total Score: 1 10/31/19 23 3:59 PM EST documented as of this encounter Care Teams Reading Professor Relationship Specialty Start Date End Date Diann Ramirez MD [address] [place] [address] PCP - General Internal Medicine 07/16/12 documented as of this encounter
--- OUTSIDE RECORDS SUMMARY | 2024-12-07 12:27 | XMS_ITS | Encounter Summary ---
Author Organization [employer] Address [address] [facility] 7 [place] [address] Care Team Providers Care Isotope Technician Name Role Phone Diann Ramirez MD Primary Care Provider [phone] Reason for Visit * Reason Onset Date Comments Med Refill 03/18/2023 Encounter Details Date Type Department Care Team (Late st Contact Info) Description 03/18/2023 Telephone [facility] [address] [place] [address] Diann Ramirez MD [address] [place], [place] [id number] Med Refill Social History Tobacco Use Types [...] [facility] [address] [place] [address] Naomi Reyes RN [address] [place] [address] 02/15/2025 1:30 PM EDT Office Visit [facility] [address] [place] [address] Diann Ramirez MD [address] [place] [address] documented as of this encounter Visit Diagnoses Not on filedocumented in this encounter Additional Health Concerns Assessment Noted Time PHQ-9 Depression Total Score: 1 10/31/19 23 3:59 PM EST documented as of this encounter Care Teams Isotope Technician Relationship Specialty Start Date End Date Diann Ramirez MD [address] [place], [place] [address] [address] PCP - General Internal Medicine 07/16/12 documented as of this encounter
--- OUTSIDE RECORDS SUMMARY | 2024-12-07 12:27 | XMS_ITS | Encounter Summary ---
Author Organization [employer] Address [address] [facility] 7 [place] [address] Care Team Providers Care Art Department Head Name Role Phone Diann Ramirez MD Primary Care Provider [phone] Reason for Visit * Reason Onset Date Comments Med Refill 09/02/2024 Encounter Details Date Type Department Care Team (Late st Contact Info) Description 09/02/[address] [facility] MED[facility]INE [address] [place] [address] Diann Ramirez MD [address] [place] [address] Med Refill Social History Tobacco Use Types [...] 1 MG tablet To be sent to: [id number] - [place] - [facility] [place] [facility] [place] [facility] documented in this encounter Plan of Treatment Upcoming Encounters Date Type Department Care Team (Late st Contact Info) Description 12/20/2024 2:00 PM EST Telemedicine [facility] [address] [place] [address] Naomi Reyes RN [address] [place] [address] 02/15/2025 1:30 PM EDT Office Visit [facility] [address] [place] [address] Diann Ramirez MD [address] [place] [address] documented as of this encounter Visit Diagnoses Not on filedocumented in this encounter Additional Health Concerns Assessment Noted Time PHQ-9 Depression Total Score: 4 03/20/20 24 9:12 AM EDT documented as of this encounter Care Teams Art Department Head Relationship Specialty Start Date End Date Diann Ramirez MD [address] [place] [address] PCP - General Internal Medicine 07/16/12 documented as of this encounter
--- OUTSIDE RECORDS SUMMARY | 2024-12-07 12:27 | XMS_ITS | Encounter Summary ---
Author Organization [employer] Address [address] [place] [address] 7[address] [place] [address] Care Team Providers Care Interface Engineer Name Role Phone Diann Ramirez MD Primary Care Provider [phone] Reason for Referral * Consultation (Routine) - Closed Specialty Diagnoses / Procedures Referred By Dania blackman Referred To Contact Hematology and Oncology Diagnoses Microcytic anemia Bicytopenia Diann Ramirez MD [address] [place] [address] Phone: tel: fax: Cornell Culver MD [address] [place] [phone] Phone: tel: fax: Referral ID Status Reason Start Date Expiration Date V isits Requested Visits Authorized [id number] Closed Specialty Services Required 03/16/2024 03/16/2025 1 1 * Imaging (Routine) - Closed Specialty Diagnoses / Procedures Referred By Contcary t Referred To Contact Diagnoses Numbness of right foot Numbness of left foot Procedures EMG Diann Ramirez MD [address] [place] [address] Phone: tel: fax: [address] Phone: tel: fax: Referral ID Status Reason Start Date Expiration Date Visits Re quested Visits Authorized [id number] Closed 03/16/2024 03/16/2025 1 1 Encounter Details Date Type Department Care Team (Late Contact Info) Description 03/12/2024 Orders Only [facility] [address] [place] [address] Diann Ramirez MD [address] [place] [address] Microcytic anemia (Primary Dx); Vitamin D deficiency; [...] [facility] [address] [place] [address] Naomi Reyes, RN [address] [place] [address] 02/15/2025 1:30 PM EDT Office Visit [facility] [address] [place] [address] Diann Ramirez MD [address] [place] [address] Scheduled Orders Name Type Priority Associated Diagnoses [...] EDT Narrative 03/24/2024 3:35 PM EDT ? [facility] ?[address] ?[place] [address] ? CT Scan Report ? Signed ? Patient: Stopa,Luc J ?MR#: [id number] ?? 78 ? : 1980 ?Acct:[id number] ? Age/Sex: 43 / M ?ADM Date: 03/24/24 ? Loc: HO.ED ? Attending Dr: ? Ordering Physician: Phani Gamino DO ?? Date of Service: 03/24/24 ?? Procedure(s): CT head/brain wo IV con ?? Accession Number(s): [id number] ? cc: Diann Ramirez MD; Phani Gamino [...] 1531 ? DD/ 1423 ? TD/TT: ? Computed Tomography Technologist: CARMEN ? Procedure Note Donotuseinterpreter, Image - 03/24/[address] [address] [address] Scan Report Signed Patient: Luc Erickson JMR#: [id number] [birth year] : 1980Acct:[id number] Age/Sex: 43 / MADM Date: 03/24/24 Loc: HO.ED Attending Dr: Ordering Physician: Phani Gamino DO Date of Service: 03/24/24 Procedure(s): CT head/brain wo IV con Accession Number(s): [id number] cc: Diann Ramirez MD; Phani Gamino DO [...] in OV> 03/24/24 1531 DD/ 1423 TD/TT: Computed Tomography Technologist: CARMEN [facility] External Provider IMG CT PROCEDURES Final Result * XR Chest 2 Views (03/24/2024 2:00 PM EDT) Anatomical Region Laterality Modality Chest Radiographic Lacey ging 03/24/2024 2:00 PM EDT Narrative 03/24/2024 3:11 PM EDT ? [facility] ?[address] ?[place] [address] ?XRay Report ? Signed ? Patient: Hiral Ericksonhan J ?MR#: [id number] ?? 78 ? : 1980 ?Acct:[id number] ? Age/Sex: 43 / M ?ADM Date: 03/24/24 ? Loc: HO.ED ? Attending Dr: ? Ordering Physician: Phani Gamino DO ?? Date of Service: 03/24/24 ?? Procedure(s): XR chest 2V ?? Accession Number(s): [id number] ? cc: Diann Ramirez MD; Phani Gamino [...] 1507 ? DD/ 1400 ? TD/TT: ? Computed Tomography Technologist: ? Procedure Note Colt Avendaño - 03/24/2024 [facility] [address] [place] [address] XRay Report Signed Patient: Luc Erickson JMR#: [id number] [birth year] : 1980Acct:[id number] Age/Sex: 43 / MADM Date: 03/24/24 Loc: HO.ED Attending Dr: Ordering Physician: Phani Gamino DO Date of Service: 03/24/24 Procedure(s): XR chest 2V Accession Number(s): [id number] cc: Diann Ramirez MD; Phani Gamino DO [...] in OV> 03/24/24 1507 DD/ 1400 TD/TT: Computed Tomography Technologist: [facility] External Provider IMG XR PROCEDURES Final Result * Tick-borne Disease, Acute Molecular Panel (03/24/2024 12:15 PM EDT) Babesia microti DNA, Real Time PCR NOT DETECTED NOT DETECTED [facility] Comment:This test was develo ped and its analytical performancecharacteristics have been determined by [employer]. It has not been cleared or approved by theFDA. This assay has been validated pursuant to the CLIAregulations and is used for clinical purposes.THIS TEST WAS PERFORMED AT:[facility] [place] [phone] MEMBRENO MD Ehrlichia chaffensis DNA Real Time PCR NOT DETECTED NOT DETECTED [facility] Comment:This test was develo ped and its analytical performancecharacteristics have been determined by [employer]. It has not been cleared or approved by theFDA. This assay has been validated pursuant to the CLIAregulations and is used for clinical purposes.THIS TEST WAS PERFORMED AT:[facility] [address] [phone] MEMBRENO MD Anaplasma phagocytophilum DNA, QL Real Time PCR NOT DETECTED NOT DETECTED [facility] Comment:This test was develo ped and its analytical performancecharacteristics have been determined by [employer]. It has not been cleared or approved by theFDA. This assay has been validated pursuant to the CLIAregulations and is used for clinical purposes. Borrelia Species DNA, Ql Real Time PCR NOT DETECTED NOT DETECTED [facility] Comment:This test was develo ped and its analytical performancecharacteristics have been determined by [employer]. It has not been cleared or approved by theFDA. This assay has been validated pursuant to the CLIAregulations and is used for clinical purposes.For additional information, please refer [email or web address](This link is being provided for informational/educational purposes only.)THIS TEST WAS PERFORMED AT:[facility] [address] [phone] MEMBRENO MD Borrelia Miyamotoi DNA, Ql Real Time PCR NOT DETECTED NOT DETECTED [facility] Comment:This test detects bu t does not distinguish betweenB. miyamotoi and B. hermsii.This test was developed and its analytical performancecharacteristics have been determined by [employer]. It has not been cleared or approved by theFDA. This assay has been validated pursuant to the CLIAregulations and is used for clinical purposes.THIS TEST WAS PERFORMED AT:[facility] [address] [phone] MEMBRENO MD Comment SEE NOTE [facility] Comment:A negative result do es not exclude Borrelia infectionas the concentration of the organism in blood may be lowor non-existent in patients with Lyme disease, and maydepend on timing of specimen collection from onset ofsymptoms. Clinical correlation is recommended andadditional studies such as serologic testing may beindicated.THIS TEST WAS PERFORMED AT:[facility] [address] [phone] MEMBRENO MD 03/24/2024 12:1 5 PM EDT 03/24/2024 12:19 PM EDT Generic External Data Provider LAB BLOOD ORDERAB LES Final Result Performing Organization Address [facility] Co de Phone Number [facility] [address] [place] [phone] * Slide Review (03/24/2024 12:15 PM EDT) Slide Review VERIFIED [facility] 03/24/2024 12:1 5 PM EDT 03/24/2024 12:19 PM EDT us Generic External Data Provider LAB BLOOD ORDERAB LES Final Result Performing Organization Address [facility] Phone Number [facility] [address] [place] [phone] * (ABNORMAL) CBC auto differential (03/24/2024 12:15 PM EDT) White Blood Count 8.3 4.8 - 10.8 X10*3/uL [facility] Red Blood Count 4.86 4.60 - 5.80 X10*6/uL [facility] Hemoglobin 14.0 14.0 - 18.0 g/dl [facility] Hematocrit 41.0(L) 42.0 - 52.0 % [facility] Mean Corpuscular Volume 84.4 80.0 - 98.0 fL [facility] Mean Corpuscular Hemoglobin 28.8 27.0 - 33.0 pg [facility] Mean Corpuscular HGB Conc 34.1 31.0 - 36.0 g/dl [facility] Red Cell Distribution Width 12.2 11.0 - 16.0 % [facility] Platelet Count 122(L) 160 - 400 X10*3/uL [facility] Comment:Confirmed by smear. Mean Platelet Volume 10.8 9.4 - 12.4 fL [facility] Neutrophils Percent Auto 62.4 45 - 73 % [facility] Imm Gran Pct Auto 0.7(H) 0.0 - 0.4 % [facility] Lymphocytes Percent Auto 27.4 20 - 40 % [facility] Monocytes Percent Auto 5.6 2 - 11 % [facility] Eosinophils Percent Auto 3.3 0 - 4 % [facility] Basophils Percent Auto 0.6 0 - 2 % [facility] NRBC Pct Auto 0.0 0.0 - 0.2 /100WBC [facility] Neutrophils Absolute Auto 5.2 2.0 - 8.3 x10*3/uL [facility] Imm Gran Abs Auto 0.06(H) 0.00 - 0.03 X10*3/uL [facility] Lymphocytes Absolute Auto 2.3 1.2 - 4.9 X10*3/uL [facility] Monocytes Absolute Auto 0.5 0.1 - 1.2 X10*3/uL [facility] Eosinophils Absolute Auto 0.3 0.0 - 0.4 X10*3/uL [facility] Basophils Absolute Auto 0.1 0.0 - 0.2 X10*3/uL [facility] NRBC Abs Auto 0.000 0.0 - 0.012 X10*3/uL [facility] 03/24/2024 12:1 5 PM EDT 03/24/2024 12:19 PM EDT us Generic External Data Provider LAB BLOOD ORDERAB LES Edited Result - Final [facility] [address] [place] [address] [phone] * TSH with Reflex to Free T4 (03/24/2024 12:15 PM EDT) TSH reflex Free T4 1.53 0.32 - 4.0 uIU/mL [facility] 03/24/2024 12:1 5 PM EDT 03/24/2024 12:19 PM EDT Generic External Data Provider LAB BLOOD ORDERAB LES Final Result Performing Organization Address [facility]/ZIP Co de Phone Number [facility] [address] [place] [phone] * Ferritin (03/24/2024 12:15 PM EDT) Ferritin 109 20 - 250 ng/mL [facility] 03/24/2024 12:1 5 PM EDT 03/24/2024 12:19 PM EDT Generic External Data Provider LAB BLOOD ORDERAB LES Final Result Performing Organization Address [facility] Co de Phone Number [facility] [address] [place] [phone] * High Sensitivity Troponin I (03/24/2024 12:15 PM EDT) TROPONIN I HIGH SENSITIVITY <2.7 <3.5 - 35.0 ng/L [facility] Comment:The Cha high sens itivity Troponin-I results should beused in conjunction with other diagnostic information suchas ECG, clinical observations and information, and patientsymptoms to aid in the diagnosis of ME. 03/24/2024 12:1 5 PM EDT 03/24/2024 12:19 PM EDT Generic External Data Provider LAB BLOOD ORDERAB LES Final Result Performing Organization Address [facility] Co de Phone Number [facility] [address] [place] [phone] * Magnesium (03/24/2024 12:15 PM EDT) Magnesium 1.9 1.6 - 2.6 mg/dL [facility] 03/24/2024 12:1 5 PM EDT 03/24/2024 12:19 PM EDT us Generic External Data Provider LAB BLOOD ORDERAB LES Final Result [facility] [address] [place] [phone] * (ABNORMAL) Comprehensive Metabolic Panel (03/24/2024 12:15 PM EDT) Sodium 140 135 - 145 mmol/L [facility] Potassium 3.6 3.3 - 5.1 mmol/L [facility] Chloride 106 96 - 108 mmol/L [facility] Carbon Dioxide 27 22 - 29 mmol/L [facility] Anion Gap 11(L) 12 - 20 [facility] Urea Nitrogen (BUN) 8(L) 9 - 16 mg/dL [facility] Creatinine, Serum 0.84 0.5 - 1.4 mg/dL [facility] Creatinine Clr Calc Pharmacy 145.2 [facility] Comment:eGFR (calculated fro m the MDRD study equation) and eCrCl(calculated from the Cockcroft-Gault equation) are based ondifferent parameters and may not yield comparable results.If eCrCl result is absurd, please check patient'sheight/weight. Estimated Glomerular Filt Rate >60 [facility] Comment:NOTE: For -Am erican individuals, multiply the result by 1.210.Chronic Kidney Disease: Estimated GFR < 60 mL/min/1.63y8Xgrvmg Kidney Disease: Estimated GFR < 15 mL/min/1.73m2 Glucose 113 60 - 115 mg/dL [facility] Calcium 9.3 8.4 - 10.2 mg/dL [facility] Bilirubin, Total 0.3 0.0 - 1.0 mg/dL [facility] Aspartate Amino Transferase 15 5 - 37 U/L [facility] Alanine Aminotransferase 13 0 - 40 U/L [facility] Total Protein 7.5 6.5 - 8.0 g/dL [facility] Albumin Level 4.3 3.5 - 5.0 g/dL [facility] Alkaline Phosphatase 79 39 - 117 U/L [facility] 03/24/2024 12:1 5 PM EDT 03/24/2024 12:19 PM EDT Generic External Data Provider LAB BLOOD ORDERAB LES Final Result Performing Organization Address [facility] Co de Phone Number [facility] [address] [place] [phone] * Prothrombin Time-INR (03/24/2024 12:15 PM EDT) Prothrombin Time 12.4 11.1 - 13.3 SEC [facility] INTERNATIONAL NORM RATIO 1.0 0.9 - 1.1 [facility] Comment:INTERNATIONAL NORMAL IZED RATIO (INR) [...] ORDERAB LES Final Result Performing Organization Address [facility] de Phone Number [facility] [address] [place] [phone] * (ABNORMAL) Reticulocyte Count (03/16/2024 11:56 AM EDT) Reticulocytes Absolute 0.127(H) 0.026 - 0.095 X10*6/uL [facility] Immature Retic Fraction 15.3(H) 2.3 - 13.4 % [facility] Retic HGB Equivalent 33.6 30.0 - 35.0 pg [facility] Reticulocyte Percent 2.8(H) 0.5 - 1.8 % [facility] Blood Venous blood specimen / Unknown 03/16/2024 11:56 AM EDT 03/16/2024 2:40 PM EDT us Diann Ramirez MD LAB BLOOD ORDERABLES Final Result Performing Organization Address [facility] Co de Phone Number [facility] [address] [place] [phone] * Ferritin (03/16/2024 11:56 AM EDT) Ferritin 118 20 - 250 ng/mL [facility] Blood Venous blood specimen / Unknown 03/16/2024 11:56 AM EDT 03/16/2024 2:42 PM EDT us Diann Ramirez MD LAB BLOOD ORDERABLES Final Result Performing Organization Address [facility] Co de Phone Number [facility] [address] [place] [phone] * Iron And Total Iron Binding Capacity (03/16/2024 11:56 AM EDT) Iron 55 45 - 160 mcg/dL [facility] Total Iron Binding Capacity 261 228 - 428 mcg/dL [facility] Percent Iron Saturation 21 15 - 50 % [facility] Unsaturated Iron Binding 206 ug/dL [facility] Blood Venous blood specimen / Unknown 03/16/2024 11:56 AM EDT 03/16/2024 2:42 PM EDT us Diann Ramirez MD LAB BLOOD ORDERABLES Final Result Performing Organization Address [facility] Co de Phone Number [facility] [address] [place] [phone] documented in this encounter Visit Diagnoses Diagnosis Microcytic anemia- Primary Unspecified iron deficiency anemia Vitamin D deficiency Primary hypertension Unspecified essential hypertension Numbness of right foot Numbness of left foot Bicytopenia documented in this encounter Additional Health Concerns Assessment Noted Time PHQ-9 Depression Total Score: 1 10/31/19 23 3:59 PM EST documented as of this encounter Care Teams Interface Engineer Relationship Specialty Start Date End Date Diann Ramirez MD [address] [place] [address] PCP - General Internal Medicine 07/16/12 documented as of this encounter
--- OUTSIDE RECORDS SUMMARY | 2024-12-07 12:27 | XMS_ITS | Encounter Summary ---
Author Organization [employer] Address [address] [facility] 7 [place] [address] Care Team Providers Care Icer Hand Name Role Phone Diann Ramirez MD Primary Care Provider [phone] Reason for Visit * Reason Onset Date Comments Appointment Request 04/28/2024 Encounter Details Date Type Department Care Team (Late st Contact Info) Description 04/28/2024 Telephone [facility] [address] [place] [address] Diann Ramirez MD [address] [place] [address] Appointment Request Social History Tobacco Use Types [...] won't be able to make it today's SENIOR GEOLOGIST visit due to not feeling well and is requesting to reschedule. Please contact pt at [phone]. documented in this encounter Plan of Treatment Upcoming Encounters Date Type Department Care Team (Late st Contact Info) Description 12/20/2024 2:00 PM EST Telemedicine [facility] [address] [place] [address] Naomi Reyes, RN [address] [place] [address] 02/15/2025 1:30 PM EDT Office Visit [facility] [address] [place] [address] Diann Ramirez MD [address] [place] [address] documented as of this encounter Visit Diagnoses Not on filedocumented in this encounter Additional Health Concerns Assessment Noted Time PHQ-9 Depression Total Score: 4 03/20/20 24 9:12 AM EDT documented as of this encounter Care Teams Icer Hand Relationship Specialty Start Date End Date Diann Ramirez MD [address] [place] [address] PCP - General Internal Medicine 07/16/12 documented as of this encounter
== END 2024-12-07 12:15 | disposition home or self-care (01) ==
PROVIDERS: PCP Internal Medicine; Visit Provider Physician Assistant
DX: S82.892D Other fracture of left lower leg, subsequent encounter for closed fracture with routine healing (principal); Z87.81 Personal history of (healed) traumatic fracture
CPT/HCPCS: 29515; 99024

== ENCOUNTER → 2024-12-07 11:15 | Outpatient (BNV) | payer MEDICAID, SELFPAY | PROVIDERS: Visit Provider Radiology Vascular & Interventional Radiology | DX: M25.572 Pain in left ankle and joints of left foot (principal) | CPT/HCPCS: 73610 ==

== ENCOUNTER 2024-12-30 09:10 | Outpatient (REF) | payer MEDICAID, SELFPAY ==
--- NOTE | ~2024-12-30 | XR_ITS ---
EXAMINATION: XR ANKLE, LEFT CLINICAL INFORMATION: M25.579 - Pain in unspecified ankle and joints of unspecified foot COMPARISON: 12/07/2024, 11/26/2024. TECHNIQUE: AP, lateral, and mortise views of the left ankle. FINDINGS: There is been lateral plate and screw fixation of distal fibular fracture. Hardware is intact and well seated. There is a radiolucent syndesmotic stabilization device. The fracture lines are still visible although sclerotic and blunted indicating healing. There is a healing small avulsion fragment of the posterior malleolus. There are subchondral cystic changes with mild subchondral sclerosis of the talar dome. Similar findings progressing in the intertarsal joints. This may be posttraumatic, or inflammatory. The mortise remains intact. No new bony abnormalities. There is a persistent ankle joint effusion and there is persistent mild soft tissue swelling. XR/XR ankle LT min 3V IMPRESSION: 1. Healing fixated distal fibular fracture. 2. Healing small avulsion fracture posterior malleolus. 3. Hardware intact without complication. 4. Developing subchondral sclerosis and cystic changes in the talar dome. Similar findings progressing in the intertarsal joints. This may be posttraumatic or inflammatory. Electronically signed by: Carter Ruiz MD 12/30/2024 12:01 PM EDT
--- OUTSIDE RECORDS SUMMARY | 2024-12-31 09:53 | XMS_ITS | Encounter Summary ---
Author Organization [employer] Address 75 [facility] 7 [place] [address] Care Team Providers Care Sapphire Stylus Grinder Name Role Phone Diann Ramirez MD Primary Care Provider [phone] Reason for Visit * Reason Onset Date Comments Referral 08/09/2024 Encounter Details Date Type Department Care Team (Late st Contact Info) Description 08/09/2024 Telephone [facility] MEDICINE [address] [place] [address] Diann Ramirez MD [address] [place], [place] [phone] Referral Social History Tobacco Use Types Packs/Day [...] Jimenez RN - 08/14/2024 12:07 PM EDT [employer] message informing pt referral for Neuro was sent to [facility] Neuro and pt should [...] Upcoming Encounters Date Type Department Care Team ([facility] st Contact Info) Description 02/15/2025 1:30 PM EDT Office Visit [facility] [address] [place] [address] Diann Ramirez MD [address] [place] [address] 03/21/2025 1:30 PM EDT Telemedicine [facility] [address] [place] [address] Naomi Reyes RN [address] [place] [address] documented as of this encounter Visit Diagnoses Not on filedocumented in this encounter Additional Health Concerns Assessment Noted Time PHQ-9 Depression Total Score: 4 03/20/20 24 9:12 AM EDT documented as of this encounter Care Teams Sapphire Stylus Grinder Relationship Specialty Start Date End Date Diann Ramirez MD [address] [place] [address] PCP - General Internal Medicine 07/16/12 documented as of this encounter
--- OUTSIDE RECORDS SUMMARY | 2024-12-31 09:53 | XMS_ITS | Encounter Summary ---
Author Organization [employer] Address 75 [facility] 7 [place] [address] Care Team Providers Care Lining Feller Name Role Phone Diann Ramirez MD Primary Care Provider [phone] [phone] Reason for Visit * Reason Onset Date Comments Med Refill 07/28/2024 Encounter Details Date Type Department Care Team (Late st Contact Info) Description 07/28/2024 Telephone [facility] MEDICINE [address] [place] [address] Diann Ramirez MD [address] [place], [place] [phone] Med Refill Social History Tobacco Use Types [...] 1 MG tablet To be sent to: [id number] - [place] - [address] [facility] documented in this encounter Plan of Treatment Upcoming Encounters Date Type Department Care Team (Late st Contact Info) Description 02/15/2025 1:30 PM EDT Office Visit [facility] [address] [place] [address] Diann Ramirez MD [address] [place] [address] 03/21/2025 1:30 PM EDT Telemedicine [facility] [address] [place] [address] Naomi Reyes RN [address] [place] [address] documented as of this encounter Visit Diagnoses Not on filedocumented in this encounter Additional Health Concerns Assessment Noted Time PHQ-9 Depression Total Score: 4 03/20/20 24 9:12 AM EDT documented as of this encounter Care Teams Lining Feller Relationship Specialty Start Date End Date Diann Ramirez MD [address] [place] [address] PCP - General Internal Medicine 07/16/12 documented as of this encounter
--- OUTSIDE RECORDS SUMMARY | 2024-12-31 09:53 | XMS_ITS | Encounter Summary ---
Author Organization [employer] Address 75 [facility] 7 [place] [address] Care Team Providers Care [employer] Name Role Phone Diann Ramirez MD Primary Care Provider [phone] Reason for Visit * Reason Onset Date Comments Appointment Request 01/13/2024 Encounter Details Date Type Department Care Team (Late st Contact Info) Description 01/13/[address] [facility] MEDICINE [address] [place] [address] Diann Ramirez MD [address] [place] [address] Appointment Request Social History Tobacco Use Types [...] [facility] [address] [place] [address] Diann Ramirez MD [address] [place] [address] 03/21/2025 1:30 PM EDT Telemedicine [facility] [address] [place] [address] Naomi Reyes, TABATHA [address] [place] [address] documented as of this encounter Visit Diagnoses Not on filedocumented in this encounter Additional Health Concerns Assessment Noted Time PHQ-9 Depression Total Score: 1 10/31/19 23 3:59 PM EST documented as of this encounter Care Teams [employer] Relationship Specialty Start Date End Date Diann Ramirez MD [address] [place] [address] PCP - General Internal Medicine 07/16/12 documented as of this encounter
--- OUTSIDE RECORDS SUMMARY | 2024-12-31 09:53 | XMS_ITS | Encounter Summary ---
Author Organization [email or web address] Address 75 [facility] 7t [place] [address] Care Team Providers Care Blower And Compressor Assembler Name Role Phone Diann Ramirez MD Primary Care Provider [phone] [phone] Reason for Visit * Reason Comments controlled substance treatment Encounter Details Date Type Department Care Team (Latest Contact Info) Description 12/20/2024 2:00 PM EST Telemedicine [facility] [address] [place] [address] Naomi Reyes, RN [address] [place], [place] Anxiety; Long-term current use of benzodiazepine [...] RN - 12/20/2024 2:00 PM EST S: REAL ESTATE VALUER Televisit. Patient is taking Lorazepam 1mg qid PRN. States has been taking medications as prescribed. Denies any adverse events. Patient is also using Suboxone. Denies smoking, ETOH or illicitdrugs use. Last PCP appointment was on 11/15/24. No questions/ concerns at this time. O: SENIOR OPERATOR checked on 12/20/24. Pill count performed over the phone, patient states he has 34 pills left,34 expected. Medication is not being overused by patient. A: Benzodiazepine use r/t anxiety. P: Patient to cont. with current medication regimen as needed and take medication only as directed.REAL ESTATE VALUER [place] scheduled for 03/21/25 @ 1:30pm. f/u with PCP 02/15/25. f/u sooner PRN. Patient verbalized understanding and agreed to plan. documented in this encounter Plan of Treatment Upcoming Encounters Date Type Department Care Team (Late st Contact Info) Description 02/15/2025 1:30 PM EDT Office Visit [facility] [address] [place] [address] Diann Ramirez MD [address] [place] [address] 03/21/2025 1:30 PM EDT Telemedicine [facility] [address] [place] [address] Naomi Reyes, TABATHA [address] [place] [address] documented as of this encounter Visit Diagnoses Diagnosis Anxiety Anxiety state, unspecified Long-term current use of benzodiazepine documented in this encounter Additional Health Concerns Assessment Noted Time PHQ-9 Depression Total Score: 4 03/20/20 24 9:12 AM EDT documented as of this encounter Care Teams Blower And Compressor Assembler Relationship Specialty Start Date End Date Diann Ramirez MD [address] [place] [address] PCP - General Internal Medicine 07/16/12 documented as of this encounter
--- OUTSIDE RECORDS SUMMARY | 2024-12-31 09:53 | XMS_ITS | Encounter Summary ---
Author Organization [employer] Address 75 [facility] 7 [place] [address] Care Team Providers Care Electronics Installer Name Role Phone Diann Ramirez MD Primary Care Provider +1 [phone] Reason for Visit * Reason Onset Date Comments Appointment Request 06/17/2024 Encounter Details Date Type Department Care Team ([facility] st Contact Info) Description 06/17/2024 Telephone [facility] MEDICINE [address] [place] [address] Diann Ramirez MD [address] [place] [address] Appointment Request Social History Tobacco Use Types [...] would like a sooner appt than what specifications writer offered documented in this encounter Plan of Treatment Upcoming Encounters Date Type Department Care Team (Late st Contact Info) Description 02/15/2025 1:30 PM EDT Office Visit [facility] [address] [place] [address] Diann Ramirez MD [address] [place] [address] 03/21/2025 1:30 PM EDT Telemedicine [facility] [address] [place] [address] Naomi Reyes, TABATHA [address] [place] [address] documented as of this encounter Visit Diagnoses Not on filedocumented in this encounter Additional Health Concerns Assessment Noted Time PHQ-9 Depression Total Score: 4 03/20/20 24 9:12 AM EDT documented as of this encounter Care Teams Electronics Installer Relationship Specialty Start Date End Date Diann Ramirez MD [address] [place] [address] PCP - General Internal Medicine 07/16/12 documented as of this encounter
--- OUTSIDE RECORDS SUMMARY | 2024-12-31 09:53 | XMS_ITS | Encounter Summary ---
Author Organization [email or web address] Address 75 [facility] 7 [place] [address] Care Team Providers Care Assurance Auditor Name Role Phone Diann Ramirez MD Primary Care Provider +[phone] Reason for Visit * Reason Onset Date Comments Appointment Request 04/28/2024 Encounter Details Date Type Department Care Team (Late st Contact Info) Description 04/28/2024 Telephone [facility] MEDICINE [address] [place] [address] Diann Ramirez MD [address] [place] [address] Appointment Request Social History Tobacco Use Types [...] won't be able to make it today's SOFTWARE PROJECT LEAD visit due to not feeling well and is requesting to reschedule. Please contact pt at [phone]. documented in this encounter Plan of Treatment Upcoming Encounters Date Type Department Care Team (Late st Contact Info) Description 02/15/2025 1:30 PM EDT Office Visit [facility] MED [facility] PEDS [address] [place] [address] Diann Ramirez MD [address] [place] [address] 03/21/2025 1:30 PM EDT Telemedicine [facility] [address] [place] [address] Naomi Reyes, TABATHA [address] [place] [address] documented as of this encounter Visit Diagnoses Not on filedocumented in this encounter Additional Health Concerns Assessment Noted Time PHQ-9 Depression Total Score: 4 03/20/20 24 9:12 AM EDT documented as of this encounter Care Teams Assurance Auditor Relationship Specialty Start Date End Date Diann Ramirez MD [address] [place] [address] PCP - General Internal Medicine 07/16/12 documented as of this encounter
--- OUTSIDE RECORDS SUMMARY | 2024-12-31 09:53 | XMS_ITS | Encounter Summary ---
Author Organization [employer] Address [address] [place] [address] 7[address] [place] [address] Care Team Providers Care Manufacturing Plant Controller Name Role Phone Diann Ramirez MD Primary Care Provider [phone] Reason for Referral * Consultation (Routine) - Closed Specialty Diagnoses / Procedures Referred By Dania blackman Referred To Contact Hematology and Oncology Diagnoses Microcytic anemia Bicytopenia Diann Ramirez MD [address] [place] [address] Phone: tel: fax: Cornell Culver MD [address] [place] [phone] Phone: tel: fax: Referral ID Status Reason Start Date Expiration Date V isits Requested Visits Authorized [id number] Closed Specialty Services Required 03/16/2024 03/16/2025 1 1 * Imaging (Routine) - Closed Specialty Diagnoses / Procedures Referred By Contcary t Referred To Contact Diagnoses Numbness of right foot Numbness of left foot Procedures EMG Diann Ramirez MD [address] [place] [address] Phone: tel: fax: [address] Phone: tel: fax: Referral ID Status Reason Start Date Expiration Date Visits Re quested Visits Authorized [id number] Closed 03/16/2024 03/16/2025 1 1 Encounter Details Date Type Department Care Team (Late Contact Info) Description 03/12/2024 Orders Only [facility] [address] [place] [address] Diann Ramirez MD [address] [place] [address] Microcytic anemia (Primary Dx); Vitamin D deficiency; [...] [facility] [address] [place] [address] Diann Ramirez MD [address] [place] [address] 03/21/2025 1:30 PM EDT Telemedicine [facility] [address] [place] [address] Naomi Reyes RN [address] [place] [address] Scheduled Orders Name Type Priority Associated Diagnoses [...] EDT Narrative 03/24/2024 3:35 PM EDT ? [facility] ?[address] ?[place] [address] ? CT Scan Report ? Signed ? Patient: Stopa,Luc J ?MR#: [id number] ?? 78 ? : 1980 ?Acct:[id number] ? Age/Sex: 43 / M ?ADM Date: 03/24/24 ? Loc: HO.ED ? Attending Dr: ? Ordering Physician: Phani Gamino DO ?? Date of Service: 03/24/24 ?? Procedure(s): CT head/brain wo IV con ?? Accession Number(s): [id number] ? cc: Diann Ramirez MD; Phani Gamino [...] 1531 ? DD/ 1423 ? TD/TT: ? Spice Cleaner: CARMEN ? Procedure Note Donotuseinterpreter, Image - 03/24/[address] [address] [address] Scan Report Signed Patient: Luc Erickson JMR#: [id number] 78 : 1980Acct:[id number] Age/Sex: 43 / MADM Date: 03/24/24 Loc: HO.ED Attending Dr: Ordering Physician: Phani Gamino DO Date of Service: 03/24/24 Procedure(s): CT head/brain wo IV con Accession Number(s): [id number] cc: Diann Ramirez MD; Phani Gamino DO [...] in OV> 03/24/24 1531 DD/ 1423 TD/TT: Spice Cleaner: CARMEN [facility] External Provider IMG CT PROCEDURES Final Result * XR Chest 2 Views (03/24/2024 2:00 PM EDT) Anatomical Region Laterality Modality Chest Radiographic Lacey ging 03/24/2024 2:00 PM EDT Narrative 03/24/2024 3:11 PM EDT ? [facility] ?[address] ?[place] [address] ?XRay Report ? Signed ? Patient: Luc Erickson ?MR#: [id number] ?? 78 ? : 1980 ?Acct:[id number] ? Age/Sex: 43 / M ?ADM Date: 03/24/24 ? Loc: HO.ED ? Attending Dr: ? Ordering Physician: Phani Gamino DO ?? Date of Service: 03/24/24 ?? Procedure(s): XR chest 2V ?? Accession Number(s): [id number] ? cc: Diann Ramirez MD; Phani Gamino [...] 1507 ? DD/ 1400 ? TD/TT: ? Spice Cleaner: ? Procedure Note Colt Avendaño - 03/24/2024 [facility] [address] [place] [address] XRay Report Signed Patient: Luc Erickson JMR#: [id number] [birth year] : 1980Acct:[id number] Age/Sex: 43 / MADM Date: 03/24/24 Loc: HO.ED Attending Dr: Ordering Physician: Phani Gamino DO Date of Service: 03/24/24 Procedure(s): XR chest 2V Accession Number(s): [id number] cc: Diann Ramirez MD; Phani Gamino DO [...] in OV> 03/24/24 1507 DD/ 1400 TD/TT: Spice Cleaner: [facility] External Provider IMG XR PROCEDURES Final Result * Tick-borne Disease, Acute Molecular Panel (03/24/2024 12:15 PM EDT) Babesia microti DNA, Real Time PCR NOT DETECTED NOT DETECTED [facility] Comment:This test was develo ped and its analytical performancecharacteristics have been determined by [employer]. It has not been cleared or approved by theFDA. This assay has been validated pursuant to the CLIAregulations and is used for clinical purposes.THIS TEST WAS PERFORMED AT:[employer] [place] [phone] MEMBRENO MD Ehrlichia chaffensis DNA Real Time PCR NOT DETECTED NOT DETECTED [facility] Comment:This test was develo ped and its analytical performancecharacteristics have been determined by [employer]. It has not been cleared or approved by theFDA. This assay has been validated pursuant to the CLIAregulations and is used for clinical purposes.THIS TEST WAS PERFORMED AT:[employer] [address] [phone] MEMBRENO MD Anaplasma phagocytophilum DNA, QL Real Time PCR NOT DETECTED NOT DETECTED [facility] Comment:This test was develo ped and its analytical performancecharacteristics have been determined by [employer]. It has not been cleared or approved by theFDA. This assay has been validated pursuant to the CLIAregulations and is used for clinical purposes. Borrelia Species DNA, Ql Real Time PCR NOT DETECTED NOT DETECTED [facility] Comment:This test was develo ped and its analytical performancecharacteristics have been determined by [employer]. It has not been cleared or approved by theFDA. This assay has been validated pursuant to the CLIAregulations and is used for clinical purposes.For additional information, please refer totps://education.[employer]/faq/wzo191(This link is being provided for informational/educational purposes only.)THIS TEST WAS PERFORMED AT:[employer] [address] [phone] MEMBRENO MD Borrelia Miyamotoi DNA, Ql Real Time PCR NOT DETECTED NOT DETECTED [facility] Comment:This test detects bu t does not distinguish betweenB. miyamotoi and B. hermsii.This test was developed and its analytical performancecharacteristics have been determined by [employer]. It has not been cleared or approved by theFDA. This assay has been validated pursuant to the CLIAregulations and is used for clinical purposes.THIS TEST WAS PERFORMED AT:[employer] [address] [phone] MEMBRENO MD Comment SEE NOTE [facility] Comment:A negative result do es not exclude Borrelia infectionas the concentration of the organism in blood may be lowor non-existent in patients with Lyme disease, and maydepend on timing of specimen collection from onset ofsymptoms. Clinical correlation is recommended andadditional studies such as serologic testing may beindicated.THIS TEST WAS PERFORMED AT:[employer] [address] [phone] MEMBRENO MD 03/24/2024 12:1 5 PM EDT 03/24/2024 12:19 PM EDT us Generic External Data Provider LAB BLOOD ORDERAB LES Final Result Performing Organization Address [facility] Co de Phone Number [facility] [address] [place] [phone] * Slide Review (03/24/2024 12:15 PM EDT) Slide Review VERIFIED [facility] 03/24/2024 12:1 5 PM EDT 03/24/2024 12:19 PM EDT Generic External Data Provider LAB BLOOD ORDERAB LES Final Result Performing Organization Address [facility] Phone Number [facility] [address] [place] [phone] * (ABNORMAL) CBC auto differential (03/24/2024 12:15 PM EDT) White Blood Count 8.3 4.8 - 10.8 X10*3/uL [facility] Red Blood Count 4.86 4.60 - 5.80 X10*6/uL [facility] Hemoglobin 14.0 14.0 - 18.0 g/dl [facility] Hematocrit 41.0(L) 42.0 - 52.0 % [facility] Mean Corpuscular Volume 84.4 80.0 - 98.0 fL [facility] Mean Corpuscular Hemoglobin 28.8 27.0 - 33.0 pg [facility] Mean Corpuscular HGB Conc 34.1 31.0 - 36.0 g/dl [facility] Red Cell Distribution Width 12.2 11.0 - 16.0 % [facility] Platelet Count 122(L) 160 - 400 X10*3/uL [facility] Comment:Confirmed by smear. Mean Platelet Volume 10.8 9.4 - 12.4 fL [facility] Neutrophils Percent Auto 62.4 45 - 73 % [facility] Imm Gran Pct Auto 0.7(H) 0.0 - 0.4 % [facility] Lymphocytes Percent Auto 27.4 20 - 40 % [facility] Monocytes Percent Auto 5.6 2 - 11 % [facility] Eosinophils Percent Auto 3.3 0 - 4 % [facility] Basophils Percent Auto 0.6 0 - 2 % [facility] NRBC Pct Auto 0.0 0.0 - 0.2 /100WBC [facility] Neutrophils Absolute Auto 5.2 2.0 - 8.3 x10*3/uL [facility] Imm Gran Abs Auto 0.06(H) 0.00 - 0.03 X10*3/uL [facility] Lymphocytes Absolute Auto 2.3 1.2 - 4.9 X10*3/uL [facility] Monocytes Absolute Auto 0.5 0.1 - 1.2 X10*3/uL [facility] Eosinophils Absolute Auto 0.3 0.0 - 0.4 X10*3/uL [facility] Basophils Absolute Auto 0.1 0.0 - 0.2 X10*3/uL [facility] NRBC Abs Auto 0.000 0.0 - 0.012 X10*3/uL [facility] 03/24/2024 12:1 5 PM EDT 03/24/2024 12:19 PM EDT us Generic External Data Provider LAB BLOOD ORDERAB LES Edited Result - Final [facility] [address] [place] [phone] * TSH with Reflex to Free T4 (03/24/2024 12:15 PM EDT) TSH reflex Free T4 1.53 0.32 - 4.0 uIU/mL [facility] 03/24/2024 12:1 5 PM EDT 03/24/2024 12:19 PM EDT Generic External Data Provider LAB BLOOD ORDERAB LES Final Result Performing Organization Address [facility] Co de Phone Number [facility] [address] [place] [phone] * Ferritin (03/24/2024 12:15 PM EDT) Ferritin 109 20 - 250 ng/mL [facility] 03/24/2024 12:1 5 PM EDT 03/24/2024 12:19 PM EDT Generic External Data Provider LAB BLOOD ORDERAB LES Final Result Performing Organization Address [facility] de Phone Number [facility] [address] [place] [phone] * High Sensitivity Troponin I (03/24/2024 12:15 PM EDT) TROPONIN I HIGH SENSITIVITY <2.7 <3.5 - 35.0 ng/L [facility] Comment:The Cha high sens itivity Troponin-I results should beused in conjunction with other diagnostic information suchas ECG, clinical observations and information, and patientsymptoms to aid in the diagnosis of AR. 03/24/2024 12:1 5 PM EDT 03/24/2024 12:19 PM EDT Generic External Data Provider LAB BLOOD ORDERAB LES Final Result Performing Organization Address [facility] Co de Phone Number [facility] [address] [place] [phone] * Magnesium (03/24/2024 12:15 PM EDT) Magnesium 1.9 1.6 - 2.6 mg/dL [facility] 03/24/2024 12:1 5 PM EDT 03/24/2024 12:19 PM EDT us Generic External Data Provider LAB BLOOD ORDERAB LES Final Result [facility] [address] [place] [phone] * (ABNORMAL) Comprehensive Metabolic Panel (03/24/2024 12:15 PM EDT) Sodium 140 135 - 145 mmol/L [facility] Potassium 3.6 3.3 - 5.1 mmol/L [facility] Chloride 106 96 - 108 mmol/L [facility] Carbon Dioxide 27 22 - 29 mmol/L [facility] Anion Gap 11(L) 12 - 20 [facility] Urea Nitrogen (BUN) 8(L) 9 - 16 mg/dL [facility] Creatinine, Serum 0.84 0.5 - 1.4 mg/dL [facility] Creatinine Clr Calc Pharmacy 145.2 [facility] Comment:eGFR (calculated fro m the MDRD study equation) and eCrCl(calculated from the Cockcroft-Gault equation) are based ondifferent parameters and may not yield comparable results.If eCrCl result is absurd, please check patient'sheight/weight. Estimated Glomerular Filt Rate >60 [facility] Comment:NOTE: For -Am erican individuals, multiply the result by 1.210.Chronic Kidney Disease: Estimated GFR < 60 mL/min/1.85h9Reiokn Kidney Disease: Estimated GFR < 15 mL/min/1.73m2 Glucose 113 60 - 115 mg/dL [facility] Calcium 9.3 8.4 - 10.2 mg/dL [facility] Bilirubin, Total 0.3 0.0 - 1.0 mg/dL [facility] Aspartate Amino Transferase 15 5 - 37 U/L [facility] Alanine Aminotransferase 13 0 - 40 U/L [facility] Total Protein 7.5 6.5 - 8.0 g/dL [facility] Albumin Level 4.3 3.5 - 5.0 g/dL [facility] Alkaline Phosphatase 79 39 - 117 U/L [facility] 03/24/2024 12:1 5 PM EDT 03/24/2024 12:19 PM EDT Generic External Data Provider LAB BLOOD ORDERAB LES Final Result Performing Organization Address [facility] Co de Phone Number [facility] [address] [place] [phone] * Prothrombin Time-INR (03/24/2024 12:15 PM EDT) Prothrombin Time 12.4 11.1 - 13.3 SEC [facility] INTERNATIONAL NORM RATIO 1.0 0.9 - 1.1 [facility] Comment:INTERNATIONAL NORMAL IZED RATIO (INR) [...] ORDERAB LES Final Result Performing Organization Address [facility] Co de Phone Number [facility] [address] [place] [address] [phone] * (ABNORMAL) Reticulocyte Count (03/16/2024 11:56 AM EDT) Reticulocytes Absolute 0.127(H) 0.026 - 0.095 X10*6/uL [facility] Immature Retic Fraction 15.3(H) 2.3 - 13.4 % [facility] Retic HGB Equivalent 33.6 30.0 - 35.0 pg [facility] Reticulocyte Percent 2.8(H) 0.5 - 1.8 % [facility] Blood Venous blood specimen / Unknown 03/16/2024 11:56 AM EDT 03/16/2024 2:40 PM EDT us Diann Ramirez MD LAB BLOOD ORDERABLES Final Result Performing Organization Address [facility] Co de Phone Number [facility] [address] [place] [phone] * Ferritin (03/16/2024 11:56 AM EDT) Ferritin 118 20 - 250 ng/mL [facility] Blood Venous blood specimen / Unknown 03/16/2024 11:56 AM EDT 03/16/2024 2:42 PM EDT us Diann Ramirez MD LAB BLOOD ORDERABLES Final Result Performing Organization Address [facility] Co de Phone Number [facility] [address] [place] [phone] * Iron And Total Iron Binding Capacity (03/16/2024 11:56 AM EDT) Iron 55 45 - 160 mcg/dL [facility] Total Iron Binding Capacity 261 228 - 428 mcg/dL [facility] Percent Iron Saturation 21 15 - 50 % [facility] Unsaturated Iron Binding 206 ug/dL [facility] Blood Venous blood specimen / Unknown 03/16/2024 11:56 AM EDT 03/16/2024 2:42 PM EDT us Diann Ramirez MD LAB BLOOD ORDERABLES Final Result Performing Organization Address [facility] Co de Phone Number [facility] [address] [place] [phone] documented in this encounter Visit Diagnoses Diagnosis Microcytic anemia- Primary Unspecified iron deficiency anemia Vitamin D deficiency Primary hypertension Unspecified essential hypertension Numbness of right foot Numbness of left foot Bicytopenia documented in this encounter Additional Health Concerns Assessment Noted Time PHQ-9 Depression Total Score: 1 10/31/19 23 3:59 PM EST documented as of this encounter Care Teams Manufacturing Plant Controller Relationship Specialty Start Date End Date Diann Ramirez MD [address] [place] [address] PCP - General Internal Medicine 07/16/12 documented as of this encounter
--- OUTSIDE RECORDS SUMMARY | 2024-12-31 09:53 | XMS_ITS | Clinical Summary ---
Author Organization [facility] Address [address] [place] [address] Phone Care Team Providers Care Power Plant Operator Name Role Phone Physician, Pcp Unknown Primary Care Provider Alejandra vailable Allergies No known active allergies Encounters Date Type Department Care Team Description 12/09/2024 2:50 PM EST - 12/09/2024 7:00 PM EST Emergency [facility] Emergency [address] [place] [address] Edinson Hernandez, Leg swelling (Primary [...] from Last 3 Months Insurance MEDICAID - [place] Care Teams Power Plant Operator Relationship Specialty Start Date End Date Physician, Pcp Unknown PCP - General 12/09/24
--- OUTSIDE RECORDS SUMMARY | 2024-12-31 09:53 | XMS_ITS | Encounter Summary ---
Author Organization [employer] Address [address] [facility] 7 [place] [address] Care Team Providers Care Claim Clinician Name Role Phone Diann Ramirez MD Primary Care Provider [phone] Reason for Visit * Reason Onset Date Comments Appointment Request 01/06/2023 Encounter Details Date Type Department Care Team (Late st Contact Info) Description 01/06/2023 Telephone [facility] [address] [place] [address] Diann Ramirez MD [address] [place] [address] Appointment Request Social History Tobacco Use Types [...] to r/s appt on 01/06/23 ( CHILD WATCH ATTENDANT Televisit ) documented in this encounter Plan of Treatment Upcoming Encounters Date Type Department Care Team (Late st Contact Info) Description 02/15/2025 1:30 PM EDT Office Visit [facility] [address] [place] [address] Diann Ramirez MD [address] [place] [address] 03/21/2025 1:30 PM EDT Telemedicine [facility] [address] [place] [address] Naomi Ryees, TABATHA [address] [place] [address] documented as of this encounter Visit Diagnoses Not on filedocumented in this encounter Additional Health Concerns Assessment Noted Time PHQ-9 Depression Total Score: 1 10/31/19 23 3:59 PM EST documented as of this encounter Care Teams Claim Clinician Relationship Specialty Start Date End Date Diann Ramirez MD [address] [place] [address] PCP - General Internal Medicine 07/16/12 documented as of this encounter
--- OUTSIDE RECORDS SUMMARY | 2024-12-31 09:53 | XMS_ITS | Encounter Summary ---
Author Organization [facility] Address [address] [place] [address] Care Team Providers Care Footwear Sales Coordinator Name Role Phone Physician, Pcp Unknown Primary Care Provider Alejandra vailable Reason for Visit * Reason Comments Ankle Pain Per ems from coming home- recent ankle surgery about a week ago at [facility]- now c/o pain and swelling x 4 days - Encounter Details Date Type Department Care Team (Late st Contact Info) Description 12/09/2024 2:50 PM EST - 12/09/2024 7:00 PM EST Emergency [facility] Emergency [address] [place] [address] Edinson Hernandez, DO [address] [place] [address] Leg swelling (Primary Dx); Pain of left [...] ankle surgery about a week ago at [facility]- now c/o pain and swelling x 4 days - HPI: This 44-year-old male with history of recent left ankle surgery [address] Randolph ([facility]) and had recent follow-up with orthopedics 4 [...] to display ED Course as of 12/09/241912 [facility] Dec 09, [id number] Procedure note: Left [...] extremity documented in this encounter Care Teams Footwear Sales Coordinator Relationship Specialty Start Date End Date Physician, Pcp Unknown PCP - General 12/09/24 documented as of this encounter
--- OUTSIDE RECORDS SUMMARY | 2024-12-31 09:53 | XMS_ITS | Encounter Summary ---
Author Organization [employer] Address [address] [facility] [address] [place] [address] Care Team Providers Care Scrap Collector Name Role Phone Diann Ramirez MD Primary Care Provider [phone] Encounter Details Date Type Department Care Team [...] Description 02/15/2025 1:30 PM EDT Office Visit [facility] [address] [place] [address] Diann Ramirez MD [address] [place] [address] 03/21/2025 1:30 PM EDT Telemedicine [facility] [address] [place] [address] Naomi Reyes RN [address] [place] [address] documented as of this encounter Visit Diagnoses Not on filedocumented in this encounter Additional Health Concerns Assessment Noted Time PHQ-9 Depression Total Score: 4 03/20/20 24 9:12 AM EDT documented as of this encounter Care Teams Scrap Collector Relationship Specialty Start Date End Date Diann Ramirez MD [address] [place] [address] PCP - General Internal Medicine 07/16/12 documented as of this encounter
--- OUTSIDE RECORDS SUMMARY | 2024-12-31 09:53 | XMS_ITS | Encounter Summary ---
Author Organization 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 Please contact pt at [phone]. documented in this encounter Plan of Treatment Upcoming Encounters Date Type Department Care Team (Late st Contact Info) Description 02/15/2025 1:30 PM EDT Office Visit [facility] [address] [place] [address] Diann Ramirez MD [address] [place] [address] 03/21/2025 1:30 PM EDT Telemedicine [facility] [address] [place] [address] Naomi Reyes, TABATHA [address] [place] [address] documented as of this encounter Visit Diagnoses Not on filedocumented in this encounter Additional Health Concerns Assessment Noted Time PHQ-9 Depression Total Score: 4 03/20/20 24 9:12 AM EDT documented as of this encounter Care Teams Otc Clerk Relationship Specialty Start Date End Date Diann Ramirez MD [address] [place] [address] PCP - General Internal Medicine 07/16/12 documented as of this encounter
--- OUTSIDE RECORDS SUMMARY | 2024-12-31 09:53 | XMS_ITS | Encounter Summary ---
Author Organization [employer] Address [address] [place] [address] 7 [place] [address] Care Team Providers Care Supervisor Case Loading Name Role Phone Diann Ramirez MD Primary Care Provider +1 [phone] Reason for Referral * Consultation (Routine) - Closed Specialty Diagnoses / Procedures Referred By Contcary t Referred To Contact Behavioral Health Diagnoses Anxiety Diann Ramirez MD [address] [place] [address] Phone: tel: fax: Referral ID Status Reason Start Date Expiration Date V isits Requested Visits Authorized [id number] Closed Specialty Services Required 03/30/2024 03/30/2025 1 1 Encounter Details Date Type Department Care Team ([facility] st Contact Info) Description 03/30/2024 Orders Only [facility] [address] [place] [address] Diann Ramirez MD [address] [place] [address] Anxiety (Primary Dx) Social History Tobacco Use [...] [facility] [address] [place] [address] Diann Ramirez MD [address] [place] [address] 03/21/2025 1:30 PM EDT Telemedicine [facility] [address] [place] [address] Naomi Reyes RN 505 [place] [address] Scheduled Referrals Name Type Priority Associated Diagnoses Order Schedule Referral to Behavioral Health Outpatient Referral Routine Anxiety Expected: 03/30/2024 (Approximate), Expires: 03/30/2025 documented as of this encounter Visit Diagnoses Diagnosis Anxiety- Primary Anxiety state, unspecified documented in this encounter Additional Health Concerns Assessment Noted Time PHQ-9 Depression Total Score: 4 03/20/20 24 9:12 AM EDT documented as of this encounter Care Teams Supervisor Case Loading Relationship Specialty Start Date End Date Diann Ramirez MD [address] [place] [address] PCP - General Internal Medicine 07/16/12 documented as of this encounter
--- OUTSIDE RECORDS SUMMARY | 2024-12-31 09:53 | XMS_ITS | Encounter Summary ---
Author Organization [employer] Address 75 [facility] 7 [place] [address] Care Team Providers Care Equipment Validation Engineer Name Role Phone Diann Ramirez MD Primary Care Provider +1 [phone] Reason for Visit * Reason Onset Date Comments Med Refill 11/25/2022 Encounter Details Date Type Department Care Team (Late st Contact Info) Description 11/25/2022 Telephone [facility] MEDICINE [address] [place] [address] Diann Ramirez MD 505 [place] [address] Med Refill Social History Tobacco Use Types [...] Description 02/15/2025 1:30 PM EDT Office [facility] MED & PEDS 505 [place] [address] Diann Ramirez MD 505 [place] [address] 03/21/2025 1:30 PM EDT Telemedicine [facility] & PEDS 505 [place] [address] Naomi Reyes RN 505 [place] [address] documented as of this encounter Visit Diagnoses Not on filedocumented in this encounter Additional Health Concerns Assessment Noted Time PHQ-9 Depression Total Score: 1 10/31/19 23 3:59 PM EST documented as of this encounter Care Teams Equipment Validation Engineer Relationship Specialty Start Date End Date Diann Ramirez MD 505 [place] [address] PCP - General Internal Medicine 07/16/12 documented as of this encounter
--- OUTSIDE RECORDS SUMMARY | 2024-12-31 09:53 | XMS_ITS | Encounter Summary ---
Author Organization [employer] Address 75 [facility] 7t [place] [address] Care Team Providers Care Employment Program Representative Name Role Phone Diann Ramirez MD Primary Care Provider [phone]- [phone] Encounter Details Date Type Department Care Team (Late Contact Info) Description 10/18/2022 Orders Only [facility] MEDICINE [address] [place], [place] [phone] Diann Ramirez MD 505 [place], [place] [phone] Acute cough; Bronchospasm Social History Tobacco Use [...] Description 02/15/2025 1:30 PM EDT Office Visit [facility] [address] [place], [place] [phone] Diann Ramirez MD 505 [place], [place] [phone] 03/21/2025 1:30 PM EDT Telemedicine [facility] MED & PEDS [address] [place] [address] Naomi Reyes RN 505 [place] [address] documented as of this encounter Visit Diagnoses Diagnosis Acute cough Bronchospasm Acute bronchospasm documented in this encounter Care Teams Employment Program Representative Relationship Specialty Start Date End Date Diann Ramirez MD 505 [place] [address] PCP - General Internal Medicine 07/16/12 documented as of this encounter
--- OUTSIDE RECORDS SUMMARY | 2024-12-31 09:53 | XMS_ITS | Encounter Summary ---
Author Organization [employer] Address 75 [facility] 7 [place] [address] Care Team Providers Care Toilet Products Molder Name Role Phone Diann Ramirez MD Primary Care Provider +1 [phone] Reason for Visit * Reason Onset Date Comments Referral 11/21/2022 Encounter Details Date Type Department Care Team (Late st Contact Info) Description 11/21/2022 Telephone [facility] MEDICINE [address] [place] [address] Diann Ramirez MD 505 [place] [address] Referral Social History Tobacco Use Types Packs/Day [...] by Dr Linton Please contact pt at [phone] Please see above message. Thanks * Telephone Encounter - Mario Tavaresos - 11/21/2022 2:42 PM EST Tc from pt requesting a new referral for neurologist states don't want to be seen by Dr Linton Please contact pt at [phone] documented in this encounter Plan of Treatment Upcoming Encounters Date Type Department Care Team ([facility] st Contact Info) Description 02/15/2025 1:30 PM EDT Office Visit [facility] MED & PEDS 505 [place] [address] Diann Ramirez MD 505 [place] [address] 03/21/2025 1:30 PM EDT Telemedicine [facility] MED & PEDS 505 [place] [address] Naomi Reyes RN 505 [place] [address] documented as of this encounter Visit Diagnoses Diagnosis Chronic cluster headache, not intractable- Primary documented in this encounter Additional Health Concerns Assessment Noted Time PHQ-9 Depression Total Score: 1 10/31/19 23 3:59 PM EST documented as of this encounter Care Teams Toilet Products Molder Relationship Specialty Start Date End Date Diann Ramirez MD 505 [place] [address] PCP - General Internal Medicine 07/16/12 documented as of this encounter
--- OUTSIDE RECORDS SUMMARY | 2024-12-31 09:53 | XMS_ITS | Encounter Summary ---
Author Organization [employer] Address 75 [facility] 7t [place] [address] Care Team Providers Care Tool Polisher Name Role Phone Diann Ramirez MD Primary Care Provider +1 [phone] Encounter Details Date Type Department Care Team (Late st Contact Info) Description 05/18/2024 Orders Only [facility]EDS [address] [place], [place] [phone] Provider, MD Shar Social History Tobacco Use [...] Description 02/15/2025 1:30 PM EDT Office Visit [facility] MED & PEDS [address] [place] [address] Diann Ramirez MD 505 [place] [address] 03/21/2025 1:30 PM EDT Telemedicine [facility] MED & PEDS [address] [place] [address] Naomi Reyes RN 505 [place] [address] documented as of this encounter Procedures Procedure [...] as of this encounter Care Teams Tool Polisher Relationship Specialty Start Date End Date Diann Ramirez MD [address] [place] [address] PCP - General Internal Medicine 07/16/12 documented as of this encounter
--- OUTSIDE RECORDS SUMMARY | 2024-12-31 09:53 | XMS_ITS | Encounter Summary ---
Author Organization [employer] Address 75 [facility] 7 [place] [address] Care Team Providers Care Radio Equipment Installer Name Role Phone Diann Ramirez MD Primary Care Provider +[phone] Reason for Visit * Reason Onset Date Comments Med Refill 05/31/2024 Encounter Details Date Type Department Care Team (Late st Contact Info) Description 05/31/2024 Telephone [facility] MEDICINE 230 [place] [address] Diann Ramirez MD 505 [place] [address] Med Refill Social History Tobacco Use Types [...] 1 MG tablet To be sent to: [id number] - [place] - [address] [facility] & [facility] documented in this encounter Plan of Treatment Upcoming Encounters Date Type Department Care Team (Late st Contact Info) Description 02/15/2025 1:30 PM EDT Office Visit [facility] MED & PEDS [address] [place] [address] Diann Ramirez MD 505 [place] [address] 03/21/2025 1:30 PM EDT Telemedicine [facility] MED & PEDS [address] [place] [address] Naomi Reyes, TABATHA 505 [place] [address] documented as of this encounter Visit Diagnoses Not on filedocumented in this encounter Additional Health Concerns Assessment Noted Time PHQ-9 Depression Total Score: 4 03/20/20 24 9:12 AM EDT documented as of this encounter Care Teams Radio Equipment Installer Relationship Specialty Start Date End Date Diann Ramirez MD [address] [place] [address] PCP - General Internal Medicine 07/16/12 documented as of this encounter
--- OUTSIDE RECORDS SUMMARY | 2024-12-31 09:53 | XMS_ITS | Clinical Summary ---
Author Organization [employer] Address 75 [facility] 7t [place] [address] Care Team Providers Care Dental Floss Packer Name Role Phone Diann Ramirez MD Primary Care Provider +1- [phone] Allergies Active Allergy Reactions Criticality Noted Date [...] 23 Active ergocalciferol (Vitamin D2) 1.25 MG (28260 UT) capsuleIndicati ons:Vitamin D deficiency Take 1 [...] and protective factors. Referral placed sent to [facility] on 07/21 for OP services. Provided [...] intervention , Patient to reach out to [facility] team as needed, Patient to engage in OP therapy , and Patient to reach out to [facility] as needed Assessment & Plan (03/20/2024 [...] and protective factors. Referral placed sent to [facility] on 07/21 for OP services. Provided [...] intervention , [facility] as [facility], Patient to engage [...] Type Department Care Team Description 12/24/2024 Refill [facility] MED & PEDS [address] [place] [address] Naomi Reyes, TABATHA Anxiety 12/24/2024 Telephone [facility] MEDICINE [address] [place] [address] Diann Ramirez MD Med Refill 12/20/2024 2:00 PM EST Telemedicine [facility] MED & PEDS [address] [place] [address] Naomi Reyes, TABATHA Anxiety; Long-term current use of benzodiazepine 12/20/2024 Travel 11/24/2024 Refill [facility] [address] [place] [address] Diann Ramirez MD Anxiety 11/15/2024 9:15 AM EST Office Visit [facility] MED & PEDS [address] [place] [address] Diann Ramirez MD Primary hypertension (Primary Dx); Other closed fracture of distal end of left fibula, initial encounter; Dietary counseling; Exercise counseling; Class 2 severe obesity due to excess calories with serious comorbidity and body mass index (BMI) of 35.0 to 35.9 in adult ([facility] 11/15/2024 Travel 11/11/2024 Orders Only [facility] External Provider, [facility] 10/27/2024 Refill [facility] MED & PEDS [address] [place] [address] Diann Ramirez MD Anxiety from Last 3 Months Immunizations Name Administration [...] Upcoming Encounters Date Type Department Care Team ([facility] Contact Info) Description 02/15/2025 1:30 PM EDT Office Visit [facility] MED & PEDS [address] [place] [address] Diann Ramirez MD 505 [place] [address] 03/21/2025 1:30 PM EDT Telemedicine [facility] MED [facility]EDS [address] [place], [place] [phone] Naomi Reyes RN 505 [place], [place] [phone] Health Maintenance Due Date Last Done Comments [...] Surgeons ? [address] ?[place] [address] ?XRay Report ? Signed ? Patient: Stopa,Luc J ?MR#: [id number] ?? 78 ? : 1980 ?Acct:[id number] ? Age/Sex: 44 / M ?ADM Date: 02/07/25 ? Loc: HO.HOSX ? Attending Dr: Misha VELASQUEZ ? Ordering Physician: Anna Bennett PA-C ?? Date of Service: 11/26/24 ?? Procedure(s): XR ankle LT min 3V ?? Accession Number(s): [id number] ? cc: Diann Ramirez MD; Anna Bennett [...] ??Jovany Arambula MD ??11/26/2024 11:33 AM EST ? Dictated By: ?Jovany Arambula MD ? Signed By: ?<Electronically signed by Jovany Arambula MD in OV> ?11/26/24 1133 ? DD/ 1103 ? TD/TT: 11/26/24 1112 ? Library Attendant: ? Procedure Note Kateryna, Image - 11/26/2024 [facility] [address] [place] [address] [address] [place] [address] XRay Report Signed Patient: Luc Erickson JMR#: [id number] [birth year] : 1980Acct:[id number] Age/Sex: 44 / MADM Date: 11/26/24 Loc: IAN Attending Dr: Misha VELASQUEZ Ordering Physician: Anna Bennett PA-C Date of Service: 11/26/24 Procedure(s): XR ankle LT min 3V Accession Number(s): [id number] cc: Diann Ramirez MD; Sabrina,Anna K PA-C EXAMINATION: XR ANKLE 3 OR MORE [...] 11/26/24 1133 DD/ 1103 TD/TT: 11/26/24 1112 Library Attendant: [facility] External Provider IMG XR PROCEDURES Final Result * FL Guidance in OR (11/24/2024 2:38 PM EST) Anatomical Region Laterality Modality X-Ray Angiograph y 11/24/2024 2:38 PM EST Narrative 11/25/2024 8:58 AM EST ? [facility] ?[address] ?[place] [address] ? Fluoroscopy Report ? Signed ? Patient: Stopa,Luc J ?MR#: [id number] ?? 78 ? : 1980 ?Acct:[id number] ? Age/Sex: 44 / M ?ADM Date: 02/05/25 ? Loc: HO.SSS ? Attending Dr: Will Randolph MD ? Ordering Physician: Will Randolph MD ?? Date of Service: 11/24/24 ?? Procedure(s): FL guidance in OR ?? Accession Number(s): [id number] ? cc: Diann Ramirez MD; Will Randolph [...] DD/ 1438 ? TD/TT: 11/24/24 1527 ? Library Attendant: ? Procedure Note Kateryna, Colt - 11/25/[address] [address] Fluoroscopy Report Signed Patient: Luc Erickson JMR#: [id number] [birth year] : 1980Acct:[id number] Age/Sex: 44 / MADM Date: 11/24/24 Loc: HO.[facility] Attending Dr: Will Randolph MD Ordering Physician: Will Randolph MD Date of Service: 11/24/24 Procedure(s): FL guidance in OR Accession Number(s): [id number] cc: Diann Ramirez MD; Will Randolph MD [...] 11/25/24 0856 DD/ 1438 TD/TT: 11/24/24 1527 Library Attendant: us [facility] External Provider IMG IR PROCEDURES Final Result * XR Tibia Fibula 2 Views Left (11/11/2024 10:45 AM EST) Anatomical Region Laterality Modality Lower Extremities, Lower Leg Left Rad iographic Imaging 11/11/2024 10:4 5 AM EST Narrative 11/11/2024 11:32 AM EST ? [facility] ?[address] ?[place] [address] ?XRay Report ? Signed ? Patient: Luc Erickson ?MR#: [id number] ?? 78 ? : 1980 ?Acct:[id number] ? Age/Sex: 44 / M ?ADM Date: 11/11/24 ? Loc: HO.ED ? Attending Dr: ? Ordering Physician: Generic ED Physician ?? Date of Service: 11/11/24 ?? Procedure(s): XR tibia fibula LT 2V ?? Accession Number(s): [id number] ? cc: Diann Ramirez MD; Generic ED [...] DD/ 1045 ? TD/TT: 11/11/24 1100 ? Library Attendant: MSM ? Procedure Note Donotuseinterpreter, Image - 11/11/[address] [address] XRay Report Signed Patient: Luc Erickson JMR#: [id number] [birth year] : 1980Acct:[id number] Age/Sex: 44 / MADM Date: 11/11/24 Loc: HO.ED Attending Dr: Ordering Physician: Generic ED Physician Date of Service: 11/11/24 Procedure(s): XR tibia fibula LT 2V Accession Number(s): [id number] cc: Diann Ramirez MD; Generic ED Physician Examination: Left tibia and fibula. 2 views. CLINICAL INDICATION: Fall, leg pain. COMPARISON: None. FINDINGS: There is a distal fibular oblique fracture. Rest of the fibula and the tibia is normal. Mild lateral malleolar soft tissue swelling. XR/XR tibia fibula LT 2V IMPRESSION: Distal fibular oblique fracture. Electronically signed by: Livan Swenson MD 11/11/2024 11:29 AM [facility] Dictated By: Livan Swenson MD Signed By: <Electronically signed by Livan Swenson MD in OV> 11/11/24 1129 DD/ 1045 TD/TT: 11/11/24 1100 Library Attendant: [facility] External Provider IMG XR PROCEDURES Final Result * (ABNORMAL) Lipid Panel, Standard (03/11/2024 1:07 PM EDT) Triglycerides 40 <150 mg/dL [facility] Comment:Desirable Triglyceri de: less than 150 mg/dLBorderline High Triglyceride 150-199 mg/dLHigh Triglyceride: 200-499 mg/dLVery High Triglyceride: greater than or equal to 5OO mg/dL Cholesterol 141 <200 mg/dL [facility] Comment:Desirable Cholestero l: less than 200 mg/dLBorderline High Cholesterol: 200-239 mg/dLHigh Cholesterol: greater than 239 mg/dL LDL Cholesterol Calculated 93 <100 mg/dL [facility] Comment:Desirable LDL: less than 100 mg/dLNear Optimal/Above Optimal LDL: 110- 129 mg/dLBorderline High LDL: 130-159 mg/dLHigh LDL: 160-189 mg/dLVery High LDL: greater than or equal to 190 mg/dL HDL Cholesterol 40(L) >40 mg/dL [facility] Comment:Desirable HDL: great er than 40 mg/dL Note: This HDL assay may give artificially low results in patients with liver disease. Blood Venous blood specimen / Unknown 03/11/2024 1:07 PM EDT 03/11/2024 2:22 PM EDT us Diann Ramirez MD LAB BLOOD ORDERABLES Final Result Performing Organization Address [facility]/ZIP Co de Phone Number [facility] [address] [place] [phone] * HIV AB/AG (08/07/2022 2:03 PM EDT) [facility] HIV AB/AG Nonreactive Nonreactive [facility] Comment: HIV-1 p24 Ag and/or [...] detection of this assay. ?? The [facility] Gerontological Nurse Practitioner HIV Ag/Ab Combo assay result and supplemental assay results should be interpreted in conjunction with the patient's clinical presentation, history and other laboratory results. ??If the results are inconsistent with clinical evidence, additional testing is suggested to confirm the result. 08/07/2022 2:03 PM EDT us Tra Linton MD HISTORICAL/NON ORDERAB LE LABS Final Result [facility] * HEPATITIS C AB W/REFL TO HCV RNA, QN, PCR (07/01/2022 10:13 AM EDT) HEPATITIS C ANTIBODY NON-REACT JESSEE NON-REACT JESSEE [facility] INDEX 0.14 <1.00 [facility] Comment: ?? HCV antibody was non-reactive. There is no laboratory ?? evidence of HCV infection. ?? In most cases, no further action is required. However, if recent HCV exposure is suspected, a test for HCV RNA (test code 44171) is suggested. ?? For additional information please refer to http://education.[employer]/faq/AGZ82t2 (This link is being provided for informational/ educational purposes only.) ?? 07/01/2022 10:1 3 AM EDT us Diann Ramirez MD HISTORICAL/NON ORDERABLE PUMA JAMESON Final Result Performing Organization Address City/[facility] Co de Phone Number [facility] [address] [place] [address], from Last 3 Months or Most Recently Relevant to Health Maintenance Insurance [facility] C3 Care Teams Dental Floss Packer Relationship Specialty Start Date End Date Diann Ramirez MD [address] [place] [address] [place] [address] PCP - General Internal Medicine 07/16/12
--- OUTSIDE RECORDS SUMMARY | 2024-12-31 09:53 | XMS_ITS | Encounter Summary ---
Author Organization [employer] Address [address] [place] [address] 7 [place] [address] Care Team Providers Care Patient Services Assistant Name Role Phone Diann Ramirez MD Primary Care Provider [phone] Reason for Visit * Reason Onset Date Comments Med Refill 12/24/2024 Encounter Details Date Type Department Care Team ([facility] st Contact Info) Description 12/24/2024 Refill [facility] MED & PEDS [address] [place] [address] Naomi Reyes, RN [address] [place], [place] Anxiety Social History Tobacco Use Types [...] [facility] MED & PEDS [address] [place] [address] Diann Ramirez MD [address] [place] [address] 03/21/2025 1:30 PM EDT Telemedicine [facility] MED & PEDS [address] [place] [address] Naomi Reyes, TABATHA 505 [place] [address] documented as of this encounter Visit Diagnoses Diagnosis Anxiety Anxiety state, unspecified documented in this encounter Additional Health Concerns Assessment Noted Time PHQ-9 Depression Total Score: 4 03/20/20 24 9:12 AM EDT documented as of this encounter Care Teams Patient Services Assistant Relationship Specialty Start Date End Date Diann Ramirez MD [address] [place] [address] PCP - General Internal Medicine 07/16/12 documented as of this encounter
--- OUTSIDE RECORDS SUMMARY | 2024-12-31 09:53 | XMS_ITS | Encounter Summary ---
Author Organization [employer] Address 75 [facility] 7 [place] [address] Care Team Providers Care Audit Mgr Name Role Phone Diann Ramirez MD Primary Care Provider [phone] Reason for Visit * Reason Onset Date Comments Med Refill 09/02/2024 Encounter Details Date Type Department Care Team (Late st Contact Info) Description 09/02/2024 Telephone [facility] MEDICINE [address] [place] [address] Diann Ramirez MD 505 [place] [address] Med Refill Social History Tobacco Use Types [...] 1 MG tablet To be sent to: [id number] [place] [address] [facility] [facility] & [facility] documented in this encounter Plan of Treatment Upcoming Encounters Date Type Department Care Team (Late st Contact Info) Description 02/15/2025 1:30 PM EDT Office Visit [facility] MED & PEDS [address] [place] [address] Diann Ramirez MD 505 [place] [address] 03/21/2025 1:30 PM EDT Telemedicine [facility] MED & PEDS [address] [place] [address] Naomi Reyes RN 505 [place] [address] documented as of this encounter Visit Diagnoses Not on filedocumented in this encounter Additional Health Concerns Assessment Noted Time PHQ-9 Depression Total Score: 4 03/20/20 24 9:12 AM EDT documented as of this encounter Care Teams Audit Mgr Relationship Specialty Start Date End Date Diann Ramirez MD [address] [place] [address] PCP - General Internal Medicine 07/16/12 documented as of this encounter
--- OUTSIDE RECORDS SUMMARY | 2024-12-31 09:53 | XMS_ITS | Encounter Summary ---
Author Organization [employer] Address 75 [facility] 7 [place] [address] Care Team Providers Care Packaging Coordinator Name Role Phone Diann Ramirez MD Primary Care Provider [phone] [phone] Reason for Visit * Reason Onset Date Comments Med Refill 12/24/2024 Encounter Details Date Type Department Care Team (Late st Contact Info) Description 12/24/2024 Telephone [facility] MEDICINE 230 [place] [address] Diann Ramirez MD 505 [place], [place] [phone] Med Refill Social History Tobacco Use Types [...] Description 02/15/2025 1:30 PM EDT Office Visit [facility] MED & PEDS 505 [place] [address] Diann Ramirez MD [address] [place] [address] 03/21/2025 1:30 PM EDT Telemedicine [facility] MED & PEDS 505 [place] [address] Naomi Reyes RN 505 [place] [address] documented as of this encounter Visit Diagnoses Not on filedocumented in this encounter Additional Health Concerns Assessment Noted Time PHQ-9 Depression Total Score: 4 03/20/20 24 9:12 AM EDT documented as of this encounter Care Teams Packaging Coordinator Relationship Specialty Start Date End Date Diann Ramirez MD [address] [place] [address] PCP - General Internal Medicine 07/16/12 documented as of this encounter
--- OUTSIDE RECORDS SUMMARY | 2024-12-31 09:53 | XMS_ITS | Encounter Summary ---
Author Organization [employer] Address [address] [facility] 7t [place] [address] Care Team Providers Care Barrel Straightener Name Role Phone Diann Ramirez MD Primary Care Provider [phone] Encounter Details Date Type Department Care Team (Late st Contact Info) Description 10/01/2024 Orders Only [facility] MED & PEDS [address] [place], [place] [phone] Diann Ramirez MD [address] [place] [address] Hiatal hernia (Primary Dx) Social History Tobacco [...] [facility] [address] [place] [address] Diann Ramirez MD [address] [place] [address] 03/21/2025 1:30 PM EDT Telemedicine [facility] MED & PEDS [address] [place] [address] Naomi Reyes RN 505 [place] [address] documented as of this encounter Visit Diagnoses Diagnosis Hiatal hernia- Primary Diaphragmatic hernia without mention of obstruction or gangrene documented in this encounter Additional Health Concerns Assessment Noted Time PHQ-9 Depression Total Score: 4 03/20/20 24 9:12 AM EDT documented as of this encounter Care Teams Barrel Straightener Relationship Specialty Start Date End Date Diann Ramirez MD [address] [place] [address] PCP - General Internal Medicine 07/16/12 documented as of this encounter
== END 2024-12-30 09:11 | disposition home or self-care (01) ==
LOC: HO.HOSX 09:10
PROVIDERS: Visit Provider Physician Assistant
DX: M25.572 Pain in left ankle and joints of left foot (principal); S82.832D Other fracture of upper and lower end of left fibula, subsequent encounter for closed fracture with routine healing; S82.55XD Nondisplaced fracture of medial malleolus of left tibia, subsequent encounter for closed fracture with routine healing; Z98.890 Other specified postprocedural states
CPT/HCPCS: 73610; 99212

== ENCOUNTER 2024-12-30 10:22 | Outpatient (AMB) | payer MEDICAID, SELFPAY ==
--- NOTE | 2024-12-30 10:54 | A.OFFVIS_ITS ---
Intake Visit Reasons: PO LT ankle ORIF 11/24/24 NE Intake Note: Luc is a 44 year old male who presents today for a post operative appointment s/p LT ankle ORIF 11/24/24 NE. Patient reports he is doing okay. He mentions that his skin feels leathery when he is touching his ankle. Patient was informing me about having some bruising around his ankle. Allergies No Known Allergies Allergy (Verified 12/30/24 10:56) HPI HPI PO LT ankle ORIF 11/24/24 NE: Details: Mr. Dre mclaughlin is a 44-year-old male who presents to the office today for routine follow-up status post left ankle ORIF on 11/24/2024. At his last appointment he reports that he was unable to be placed into a cast due to claustrophobia. Therefore, the patient was placed into a posterior splint and instructed to continue nonweightbearing. Unfortunately, it appears as though the patient has been regularly taking the splint off to view the left lower extremity. It is unclear if he has been fully following directions. He is extremely anxious in regards to his recovery and needs a great deal of reassurance. 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 No surrounding erythema or drainage. No signs of infection. No skin breakdown. Able to dorsiflex and plantar flex. Able to move all digits. Sensation is intact. Pedal pulse intact. Capillary refill is brisk. Calf is supple and nontender. Negative Homans. NVI. Assessment & Plan Assessment & Plan (1) Status post ORIF of fracture of ankle: Code(s): Z98.890 - Other specified postprocedural states; Z87.81 - Personal history of (healed) traumatic fracture Category: Surgical (2) Closed left ankle fracture: Code(s): S82.892A - Other fracture of left lower leg, initial encounter for closed fracture Category: Medical Plan Mr. Dre mclaughlin is a 44-year-old male who presents to the office today for routine follow-up status post left ankle ORIF on 11/24/2024. At his last appointment he reports that he was unable to be placed into a cast due to claustrophobia. Therefore, the patient was placed into a posterior splint and instructed to continue nonweightbearing. Unfortunately, it appears as though the patient has been regularly taking the splint off to view the left lower extremity. It is unclear if he has been fully following directions. He is extremely anxious in regards to his recovery and needs a great deal of omega ssurance. While the office today, the patient was placed into a tall walking boot. He was instructed that he can begin to weightbear as tolerated in the tall walking boot at all times. He can take the boot off for showering and to perform physical therapy exercises. A physical therapy order has also been placed at this time. I would like to see him back in 6 weeks with repeat x-rays, sooner if needed. X-rays of the left ankle which were obtained while in the office today and were reviewed by me, Anna Bennett PA-C, revealed intact orthopedic hardware with routine healing. Orders: Orders PT Evaluation and Treatment Today S82.892A - Other fracture of left lower leg, initial encounter for closed fracture, Z87.81 - Personal history of (healed) traumatic fracture, Z98.890 - Other specified postprocedural states XR ankle LT min 3V Today M25.579 - Pain in unspecified ankle and joints of unspecified foot Coding Level of Care Code Global (32699) Diagnoses Status post ORIF of fracture of ankle Z98.890; Z87.81 Closed left ankle fracture S82.892A
--- OUTSIDE RECORDS SUMMARY | 2024-12-30 12:56 | XMS_ITS | Encounter Summary ---
Author Organization [employer] Address [address] [facility] 7 [place] [address] Care Team Providers Care Pickling Grader Name Role Phone Diann Ramirez MD Primary Care Provider [phone] Reason for Visit * Reason Onset Date Comments Referral 08/09/2024 Encounter Details Date Type Department Care Team (Late st Contact Info) Description 08/09/2024 Telephone [facility] [address] [place] [address] Diann Ramirez MD [address] [place], [place] [phone] Referral Social History Tobacco Use Types Packs/Day [...] Jimenez RN - 08/14/2024 12:07 PM EDT [employer] message informing pt referral for Neuro was sent to [facility] and pt should get a call [...] Upcoming Encounters Date Type Department Care Team ([facility] st Contact Info) Description 02/15/2025 1:30 PM EDT Office Visit [facility] [address] [place] [address] Diann Ramirez MD [address] [place] [address] 03/21/2025 1:30 PM EDT Telemedicine [facility] [address] [place] [address] Naomi Reyes RN [address] [place] [address] documented as of this encounter Visit Diagnoses Not on filedocumented in this encounter Additional Health Concerns Assessment Noted Time PHQ-9 Depression Total Score: 4 03/20/20 24 9:12 AM EDT documented as of this encounter Care Teams Pickling Grader Relationship Specialty Start Date End Date Diann Ramirez MD [address] [place] [address] PCP - General Internal Medicine 07/16/12 documented as of this encounter
--- OUTSIDE RECORDS SUMMARY | 2024-12-30 12:56 | XMS_ITS | Encounter Summary ---
Author Organization [employer] Address [address] [place] [address] 7t [place] [address] Care Team Providers Care Music Historian Name Role Phone Diann Ramirez MD Primary Care Provider [phone] Reason for Referral * Consultation (Routine) - Closed Specialty Diagnoses / Procedures Referred By Dania blackman Referred To Contact Hematology and Oncology Diagnoses Microcytic anemia Bicytopenia Diann Ramirez MD [address] [place] [address] Phone: tel: fax: Cornell Culver MD [address] [place] [phone] Phone: tel: fax: Referral ID Status Reason Start Date Expiration Date V isits Requested Visits Authorized [id number] Closed Specialty Services Required 03/16/2024 03/16/2025 1 1 * Imaging (Routine) - Closed Specialty Diagnoses / Procedures Referred By Contcary t Referred To Contact Diagnoses Numbness of right foot Numbness of left foot Procedures EMG Diann Ramirez MD [address] [place] [address] Phone: tel: fax: [address] Phone: tel: fax: Referral ID Status Reason Start Date Expiration Date Visits Re quested Visits Authorized [id number] Closed 03/16/2024 03/16/2025 1 1 Encounter Details Date Type Department Care Team (Late Contact Info) Description 03/12/2024 Orders Only [facility] MED & PEDS [address] [place] [address] Diann Ramirez MD [address] [place] [address] Microcytic anemia (Primary Dx); Vitamin D deficiency; [...] Department Care Team (Late Contact Info) Description 02/15/2025 1:30 PM EDT Office Visit [facility] [address] [place] [address] Diann Ramirez MD [address] [place] [address] 03/21/2025 1:30 PM EDT Telemedicine [facility] [address] [place] [address] Naomi Reyes RN [address] [place] [address] Scheduled Orders Name Type Priority Associated Diagnoses [...] EDT Narrative 03/24/2024 3:35 PM EDT ? [facility] ?[address] ?[place] [address] ? CT Scan Report ? Signed ? Patient: Stopa,Luc J ?MR#: [id number] ?? 78 ? : 1980 ?Acct:[id number] ? Age/Sex: 43 / M ?ADM Date: 03/24/24 ? Loc: HO.ED ? Attending Dr: ? Ordering Physician: Phani Gamino DO ?? Date of Service: 03/24/24 ?? Procedure(s): CT head/brain wo IV con ?? Accession Number(s): [id number] ? cc: Diann Ramirez MD; Phani Gamino [...] 1531 ? DD/ 1423 ? TD/TT: ? Autoclave Operator: CARMEN ? Procedure Note Donotuseinterpreter, Image - 03/24/[address] [address] [address] Scan Report Signed Patient: Luc Erickson JMR#: [id number] 78 : 1980Acct:[id number] Age/Sex: 43 / MADM Date: 03/24/24 Loc: HO.ED Attending Dr: Ordering Physician: Phani Gamino DO Date of Service: 03/24/24 Procedure(s): CT head/brain wo IV con Accession Number(s): [id number] cc: Diann Ramirez MD; Phani Gamino DO [...] abnormal mass-effect or midline shift is seen. Lalen to white matter differentiation is well preserved. [...] in OV> 03/24/24 1531 DD/ 1423 TD/TT: Autoclave Operator: CARMEN [facility] External Provider IMG CT PROCEDURES Final Result * XR Chest 2 Views (03/24/2024 2:00 PM EDT) Anatomical Region Laterality Modality Chest Radiographic Lacey ging 03/24/2024 2:00 PM EDT Narrative 03/24/2024 3:11 PM EDT ? [facility] ?[address] ?[place] [address] ?XRay Report ? Signed ? Patient: Luc Erickson ?MR#: [id number] ?? 78 ? : 1980 ?Acct:[id number] ? Age/Sex: 43 / M ?ADM Date: 03/24/24 ? Loc: HO.ED ? Attending Dr: ? Ordering Physician: Phani Gamino DO ?? Date of Service: 03/24/24 ?? Procedure(s): XR chest 2V ?? Accession Number(s): [id number] ? cc: Diann Ramirez MD; Phani Gamino [...] 1507 ? DD/ 1400 ? TD/TT: ? Autoclave Operator: ? Procedure Note Colt Avendaño - 03/24/2024 [facility] [address] [facility] [place] [address] XRay Report Signed Patient: Luc Erickson JMR#: [id number] [birth year] : 1980Acct:[id number] Age/Sex: 43 / MADM Date: 03/24/24 Loc: HO.ED Attending Dr: Ordering Physician: Phani Gamino DO Date of Service: 03/24/24 Procedure(s): XR chest 2V Accession Number(s): [id number] cc: Diann Ramirez MD; Phani Gamino DO [...] in OV> 03/24/24 1507 DD/ 1400 TD/TT: Autoclave Operator: [facility] External Provider IMG XR PROCEDURES Final Result * Tick-borne Disease, Acute Molecular Panel (03/24/2024 12:15 PM EDT) Babesia microti DNA, Real Time PCR NOT DETECTED NOT DETECTED [facility] Comment:This test was develo ped and its analytical performancecharacteristics have been determined by [employer]. It has not been cleared or approved by theFDA. This assay has been validated pursuant to the CLIAregulations and is used for clinical purposes.THIS TEST WAS PERFORMED AT:[facility] [place] [phone] MEMBRENO MD Ehrlichia chaffensis DNA Real Time PCR NOT DETECTED NOT DETECTED [facility] Comment:This test was develo ped and its analytical performancecharacteristics have been determined by [employer]. It has not been cleared or approved by theFDA. This assay has been validated pursuant to the CLIAregulations and is used for clinical purposes.THIS TEST WAS PERFORMED AT:[employer] [address] [phone] MEMBRENO MD Anaplasma phagocytophilum DNA, QL Real Time PCR NOT DETECTED NOT DETECTED [facility] Comment:This test was develo ped and its analytical performancecharacteristics have been determined by [employer]. It has not been cleared or approved by theFDA. This assay has been validated pursuant to the CLIAregulations and is used for clinical purposes. Borrelia Species DNA, Ql Real Time PCR NOT DETECTED NOT DETECTED [facility] Comment:This test was develo ped and its analytical performancecharacteristics have been determined by [employer]. It has not been cleared or approved by theFDA. This assay has been validated pursuant to the CLIAregulations and is used for clinical purposes.For additional information, please refer [email or web address].FlyCast/faq/[email or web address](This link is being provided for informational/educational purposes only.)THIS TEST WAS PERFORMED AT:[facility] [employer] [address] [phone] MEMBRENO MD Borrelia Miyamotoi DNA, Ql Real Time PCR NOT DETECTED NOT DETECTED [facility] Comment:This test detects bu t does not distinguish betweenB. miyamotoi and B. hermsii.This test was developed and its analytical performancecharacteristics have been determined by [employer]. It has not been cleared or approved by theFDA. This assay has been validated pursuant to the CLIAregulations and is used for clinical purposes.THIS TEST WAS PERFORMED AT:[employer] [address] [phone] MEMBRENO MD Comment SEE NOTE [facility] Comment:A negative result do es not exclude Borrelia infectionas the concentration of the organism in blood may be lowor non-existent in patients with Lyme disease, and maydepend on timing of specimen collection from onset ofsymptoms. Clinical correlation is recommended andadditional studies such as serologic testing may beindicated.THIS TEST WAS PERFORMED AT:[employer] [address] [phone] MEMBRENO MD 03/24/2024 12:1 5 PM EDT 03/24/2024 12:19 PM EDT us Generic External Data Provider LAB BLOOD ORDERAB LES Final Result Performing Organization Address [facility] Co de Phone Number [facility] [address] [place] [phone] * Slide Review (03/24/2024 12:15 PM EDT) Slide Review VERIFIED [facility] 03/24/2024 12:1 5 PM EDT 03/24/2024 12:19 PM EDT Generic External Data Provider LAB BLOOD ORDERAB LES Final Result Performing Organization Address [facility] Phone Number [facility] [address] [place] [phone] * (ABNORMAL) CBC auto differential (03/24/2024 12:15 PM EDT) White Blood Count 8.3 4.8 - 10.8 X10*3/uL [facility] Red Blood Count 4.86 4.60 - 5.80 X10*6/uL [facility] Hemoglobin 14.0 14.0 - 18.0 g/dl [facility] Hematocrit 41.0(L) 42.0 - 52.0 % [facility] Mean Corpuscular Volume 84.4 80.0 - 98.0 fL [facility] Mean Corpuscular Hemoglobin 28.8 27.0 - 33.0 pg [facility] Mean Corpuscular HGB Conc 34.1 31.0 - 36.0 g/dl [facility] Red Cell Distribution Width 12.2 11.0 - 16.0 % [facility] Platelet Count 122(L) 160 - 400 X10*3/uL [facility] Comment:Confirmed by smear. Mean Platelet Volume 10.8 9.4 - 12.4 fL [facility] Neutrophils Percent Auto 62.4 45 - 73 % [facility] Imm Gran Pct Auto 0.7(H) 0.0 - 0.4 % [facility] Lymphocytes Percent Auto 27.4 20 - 40 % [facility] Monocytes Percent Auto 5.6 2 - 11 % [facility] Eosinophils Percent Auto 3.3 0 - 4 % [facility] Basophils Percent Auto 0.6 0 - 2 % [facility] NRBC Pct Auto 0.0 0.0 - 0.2 /100WBC [facility] Neutrophils Absolute Auto 5.2 2.0 - 8.3 x10*3/uL [facility] Imm Gran Abs Auto 0.06(H) 0.00 - 0.03 X10*3/uL [facility] Lymphocytes Absolute Auto 2.3 1.2 - 4.9 X10*3/uL [facility] Monocytes Absolute Auto 0.5 0.1 - 1.2 X10*3/uL [facility] Eosinophils Absolute Auto 0.3 0.0 - 0.4 X10*3/uL [facility] Basophils Absolute Auto 0.1 0.0 - 0.2 X10*3/uL [facility] NRBC Abs Auto 0.000 0.0 - 0.012 X10*3/uL [facility] 03/24/2024 12:1 5 PM EDT 03/24/2024 12:19 PM EDT us Generic External Data Provider LAB BLOOD ORDERAB LES Edited Result - Final [facility] [address] [place] [phone] * TSH with Reflex to Free T4 (03/24/2024 12:15 PM EDT) TSH reflex Free T4 1.53 0.32 - 4.0 uIU/mL [facility] 03/24/2024 12:1 5 PM EDT 03/24/2024 12:19 PM EDT Generic External Data Provider LAB BLOOD ORDERAB LES Final Result Performing Organization Address [facility] Co de Phone Number [facility] [address] [place] [phone] * Ferritin (03/24/2024 12:15 PM EDT) Ferritin 109 20 - 250 ng/mL [facility] 03/24/2024 12:1 5 PM EDT 03/24/2024 12:19 PM EDT Generic External Data Provider LAB BLOOD ORDERAB LES Final Result Performing Organization Address [facility] de Phone Number [facility] [address] [place] [phone] * High Sensitivity Troponin I (03/24/2024 12:15 PM EDT) TROPONIN I HIGH SENSITIVITY <2.7 <3.5 - 35.0 ng/L [facility] Comment:The Cha high sens itivity Troponin-I results should beused in conjunction with other diagnostic information suchas ECG, clinical observations and information, and patientsymptoms to aid in the diagnosis of [place]. 03/24/2024 12:1 5 PM EDT 03/24/2024 12:19 PM EDT Generic External Data Provider LAB BLOOD ORDERAB LES Final Result Performing Organization Address [facility] Co de Phone Number [facility] [address] [place] [phone] * Magnesium (03/24/2024 12:15 PM EDT) Magnesium 1.9 1.6 - 2.6 mg/dL [facility] 03/24/2024 12:1 5 PM EDT 03/24/2024 12:19 PM EDT us Generic External Data Provider LAB BLOOD ORDERAB LES Final Result [facility] [address] [place] [phone] * (ABNORMAL) Comprehensive Metabolic Panel (03/24/2024 12:15 PM EDT) Sodium 140 135 - 145 mmol/L [facility] Potassium 3.6 3.3 - 5.1 mmol/L [facility] Chloride 106 96 - 108 mmol/L [facility] Carbon Dioxide 27 22 - 29 mmol/L [facility] Anion Gap 11(L) 12 - 20 [facility] Urea Nitrogen (BUN) 8(L) 9 - 16 mg/dL [facility] Creatinine, Serum 0.84 0.5 - 1.4 mg/dL [facility] Creatinine Clr Calc Pharmacy 145.2 [facility] Comment:eGFR (calculated fro m the MDRD study equation) and eCrCl(calculated from the Cockcroft-Gault equation) are based ondifferent parameters and may not yield comparable results.If eCrCl result is absurd, please check patient'sheight/weight. Estimated Glomerular Filt Rate >60 [facility] Comment:NOTE: For -Am erican individuals, multiply the result by 1.210.Chronic Kidney Disease: Estimated GFR < 60 mL/min/1.81c4Tryybs Kidney Disease: Estimated GFR < 15 mL/min/1.73m2 Glucose 113 60 - 115 mg/dL [facility] Calcium 9.3 8.4 - 10.2 mg/dL [facility] Bilirubin, Total 0.3 0.0 - 1.0 mg/dL [facility] Aspartate Amino Transferase 15 5 - 37 U/L [facility] Alanine Aminotransferase 13 0 - 40 U/L [facility] Total Protein 7.5 6.5 - 8.0 g/dL [facility] Albumin Level 4.3 3.5 - 5.0 g/dL [facility] Alkaline Phosphatase 79 39 - 117 U/L [facility] 03/24/2024 12:1 5 PM EDT 03/24/2024 12:19 PM EDT Generic External Data Provider LAB BLOOD ORDERAB LES Final Result Performing Organization Address [facility] Co de Phone Number [facility] [address] [place] [address] [phone] * Prothrombin Time-INR (03/24/2024 12:15 PM EDT) Prothrombin Time 12.4 11.1 - 13.3 SEC [facility] INTERNATIONAL NORM RATIO 1.0 0.9 - 1.1 [facility] Comment:INTERNATIONAL NORMAL IZED RATIO (INR) [...] LES Final Result Performing Organization Address [facility] Co de Phone Number [facility] [address] [place] [address] [phone] * (ABNORMAL) Reticulocyte Count (03/16/2024 11:56 AM EDT) Reticulocytes Absolute 0.127(H) 0.026 - 0.095 X10*6/uL [facility] Immature Retic Fraction 15.3(H) 2.3 - 13.4 % [facility] Retic HGB Equivalent 33.6 30.0 - 35.0 pg [facility] Reticulocyte Percent 2.8(H) 0.5 - 1.8 % [facility] Blood Venous blood specimen / Unknown 03/16/2024 11:56 AM EDT 03/16/2024 2:40 PM EDT us Diann Ramirez MD LAB BLOOD ORDERABLES Final Result Performing Organization Address [facility] Co de Phone Number [facility] [address] [place] [phone] * Ferritin (03/16/2024 11:56 AM EDT) Ferritin 118 20 - 250 ng/mL [facility] Blood Venous blood specimen / Unknown 03/16/2024 11:56 AM EDT 03/16/2024 2:42 PM EDT us Diann Ramirez MD LAB BLOOD ORDERABLES Final Result Performing Organization Address [facility] Co de Phone Number [facility] [address] [place] [phone] * Iron And Total Iron Binding Capacity (03/16/2024 11:56 AM EDT) Iron 55 45 - 160 mcg/dL [facility] Total Iron Binding Capacity 261 228 - 428 mcg/dL [facility] Percent Iron Saturation 21 15 - 50 % [facility] Unsaturated Iron Binding 206 ug/dL [facility] Blood Venous blood specimen / Unknown 03/16/2024 11:56 AM EDT 03/16/2024 2:42 PM EDT us Diann Ramirez MD LAB BLOOD ORDERABLES Final Result Performing Organization Address [facility] Co de Phone Number [facility] [address] [place] [phone] documented in this encounter Visit Diagnoses Diagnosis Microcytic anemia- Primary Unspecified iron deficiency anemia Vitamin D deficiency Primary hypertension Unspecified essential hypertension Numbness of right foot Numbness of left foot Bicytopenia documented in this encounter Additional Health Concerns Assessment Noted Time PHQ-9 Depression Total Score: 1 10/31/19 23 3:59 PM EST documented as of this encounter Care Teams Music Historian Relationship Specialty Start Date End Date Diann Ramirez MD [address] [place] [address] PCP - General Internal Medicine 07/16/12 documented as of this encounter
--- OUTSIDE RECORDS SUMMARY | 2024-12-30 12:56 | XMS_ITS | Encounter Summary ---
Author Organization [employer] Address [address] [facility] 7t [place] [address] Care Team Providers Care Pyrotechnist Name Role Phone Diann Ramirez MD Primary Care Provider [phone] Encounter Details Date Type Department Care Team (Late Contact Info) Description 10/18/2022 Orders Only [facility] [address] [place], [place] [phone] Diann Ramirez MD [address] [place], [place] [phone] Acute cough; Bronchospasm Social History Tobacco Use [...] Description 02/15/2025 1:30 PM EDT Office Visit [facility] [address] [place], [place] [phone] Diann Ramirez MD [address] [place], [place] [phone] 03/21/2025 1:30 PM EDT Telemedicine [facility] [address] [place] [address] Naomi Reyes RN [address] [place] [address] documented as of this encounter Visit Diagnoses Diagnosis Acute cough Bronchospasm Acute bronchospasm documented in this encounter Care Teams Pyrotechnist Relationship Specialty Start Date End Date Diann Ramirez MD [address] [place] [address] PCP - General Internal Medicine 07/16/12 documented as of this encounter
--- OUTSIDE RECORDS SUMMARY | 2024-12-30 12:56 | XMS_ITS | Clinical Summary ---
Author Organization [facility] Address [address] [place] [address] Phone Care Team Providers Care Cutlery Grinder Name Role Phone Physician, Pcp Unknown Primary Care Provider Alejandra vailable Allergies No known active allergies Encounters Date Type Department Care Team Description 12/09/2024 2:50 PM EST - 12/09/2024 7:00 PM EST Emergency [facility] Emergency [address] [place] [address] Edinson Hernandez, Leg swelling (Primary Dx); Pain of left lower extremity Discharge Disposition: Home or Self Care from Last 3 Months Social History Tobacco Use Types Packs/Day Years Used Date Smoking Tobacco: Never Assessed Sex and Gender Information Value Date Recorded Sex Assigned at Male 12/09/2024 4:21 PM EST Legal Sex Male 7:33 AM EST Gender Identity Male 12/09/2024 4:21 PM EST Sexual Orientation Straight 12/09/2024 4: 21 PM EST Last Filed Vital Signs Vital Sign Reading Time Taken Comments Blood Pressure 117/71 12/09/2024 6:54 PM EST Pulse 63 12/09/2024 6:54 PM EST Temperature 36.8 ??C (98.2 ??F) 12/09/2024 6:54 PM ES T Respiratory Rate 18 12/09/2024 6:54 PM EST Oxygen Saturation 98% 12/09/2024 6:54 PM EST Inhaled Oxygen Concentration - - Weight - - Height - - Body Mass Index - - Plan of Treatment Health Maintenance Due Date Last Done Comments Hepatitis B Vaccines (1 of 3 - 19+ 3-dose series) 1999 HIV Screening 09/22/2022 Hepatitis C Screening 09/22/2022 Social Influencers of Health Screening 09/22/2022 COVID-19 Vaccine (1 - 2023-2 5 season) 2024 Influenza Vaccine (#1) 2024 Hypertension/CHF/CAD Annual BMP Blood Test 12/09/2024 Depression Screening 03/20/2025 03/20/2024 DTaP,Tdap,and Td Vaccines (2 - Td or Tdap) 08/27/2028 08/27/2018 Cholesterol Screening (Lipid Panel) 03/11/2029 03/11/2024 HIB Vaccines Aged Out No longer eligi [...] to 64 Years) Aged Out No longer eligi ble based on patient's age to complete this topic RSV Immunization Patients Un klarissa 20 months Aged Out No longer eligible b ased on patient's age to complete this topic Varicella Vaccines Aged Out No longer eligible based on patient's age to complete this topic Procedures Procedure Name Priority Date/Time Associated Diagnosis Comments VAS US DUPLEX LOWER EXT VENOUS LEFT Routine 12/09/2024 5:34 PM EST Leg swelling from Last 3 Months Results * Vascular US duplex lower extremity venous left (12/09/2024 5:34 PM EST) Anatomical Region Laterality Modality Vascular, Abdomen Ultrasound 12/09/2024 6:01 PM EST Impressions 12/09/2024 6:01 PM EST 1. Negative for left lower extremity deep vein thrombosis. This document has been electronically signed by: Bryan Lentz MD on 12/09/2024 18:01:18 Narrative 12/09/2024 6:01 PM EST INDICATION: edema Venous duplex ultrasound left lower extremity Comparison: None Findings: The visualized deep veins are fully compressible with normal Doppler color flow and spectral tracings. No popliteal cyst. Procedure Note Bryan Lentz MD - 12/09/2024 INDICATION: edema Venous duplex ultrasound left lower extremity Comparison: None Findings: The visualized deep veins are fully compressible with normal Dopplercolor flow and spectral tracings. No popliteal cyst. IMPRESSION: 1. Negative for left lower extremity deep vein thrombosis. This document has been electronically signed by: Bryan Lentz MD on 12/09/2024 18:01:18 us Edinson Hernandez DO CV VASCULAR PROCEDURES Final R esult from Last 3 Months Insurance MEDICAID - [place] Care Teams Cutlery Grinder Relationship Specialty Start Date End Date Physician, Pcp Unknown PCP - General 12/09/24
--- OUTSIDE RECORDS SUMMARY | 2024-12-30 12:56 | XMS_ITS | Encounter Summary ---
Author Organization [employer] Address [address] [facility] [address] [place] [address] Care Team Providers Care Signwriter Name Role Phone Diann Ramirez MD Primary Care Provider [phone] Reason for Visit * Reason Onset Date Comments Med Refill 09/02/2024 Encounter Details Date Type Department Care Team (Late st Contact Info) Description 09/02/2024 Telephone [facility] MEDICINE [address] [place] [address] Diann Ramirez MD [address] [place] [address] Med Refill Social History Tobacco Use Types [...] 1 MG tablet To be sent to: [id number] - [place] - [address] [facility] documented in this encounter Plan of Treatment Upcoming Encounters Date Type Department Care Team (Late st Contact Info) Description 02/15/2025 1:30 PM EDT Office Visit [facility] MED & PEDS [address] [place] [address] Diann Ramirez MD [address] [place] [address] 03/21/2025 1:30 PM EDT Telemedicine [facility] MED & PEDS [address] [place] [address] Naomi Reyes RN [address] [place] [address] documented as of this encounter Visit Diagnoses Not on filedocumented in this encounter Additional Health Concerns Assessment Noted Time PHQ-9 Depression Total Score: 4 03/20/20 24 9:12 AM EDT documented as of this encounter Care Teams Signwriter Relationship Specialty Start Date End Date Diann Ramirez MD [address] [place] [address] PCP - General Internal Medicine 07/16/12 documented as of this encounter
--- OUTSIDE RECORDS SUMMARY | 2024-12-30 12:56 | XMS_ITS | Encounter Summary ---
Author Organization [employer] [facility] Address [address] [place] [address] Care Team Providers Care Air Export Logistics Manager Name Role Phone Physician, Pcp Unknown Primary Care Provider Alejandra vailable Reason for Visit * Reason Comments Ankle Pain Per ems from coming home- recent ankle surgery about a week ago at [facility]- now c/o pain and swelling x 4 days - Encounter Details Date Type Department Care Team (Late st Contact Info) Description 12/09/2024 2:50 PM EST - 12/09/2024 7:00 PM EST Emergency [facility] Emergency [address] [place] [address] Edinson Hernandez, DO [address] [place] [address] Leg swelling (Primary Dx); Pain of left lower extremity Discharge Disposition: Home or Self Care Social History Tobacco Use Types Packs/Day Years Used Date Smoking Tobacco: Never Assessed Sex and Gender Information Value Date Recorded Sex Assigned at Male 12/09/2024 4:21 PM EST Legal Sex Male 7:33 AM EST Gender Identity Male 12/09/2024 4:21 PM EST Sexual Orientation Straight 12/09/2024 4: 21 PM EST documented as of this encounter Last Filed [...] - - Body Mass Index - - documented in this encounter Functional Status * Are you deaf or do you have serious difficulty hearing? Answer Date of Assessment Author No 12/09/2024 3:31 PM Claudia Robbins RN * Are you blind or do you have serious difficulty seeing, even when wearing glasses? Answer Date of Assessment Author No 12/09/2024 3:31 PM Claudia Robbins RN * Do you have serious difficulty walking or climbing stairs? Answer Date of Assessment Author No 12/09/2024 3:31 PM Claudia Robbins RN * Do you have serious difficulty dressing or bathing? Answer Date of Assessment Author No 12/09/2024 3:31 PM Claudia Robbins RN * Because of a physical, mental, or emotional condition, do you have serious difficulty doing errandsalone such as visiting the doctor? Answer Date of Assessment Author No 12/09/2024 3:31 PM Claudia Robbins RN documented as of this encounter Mental Status * Because of a physical, mental, or emotional condition, do you have serious difficulty concentrating, remembering, or making decisions? (5 years old or older) Answer Entry Date Author No 12/09/2024 3:31 PM Claudia Robbins RN documented in this encounter Discharge Instructions * Discharge Instructions* Edinson Hernandez DO - 12/09/2024 7:13 PM EST Stay well-hydrated, drink plenty of fluids. Elevate your left leg above your heart as often as possible Follow-up with your orthopedist in a few days Followup with your doctor in a few days. Return to the emergency department if you get worse. I hope you feel better soon. documented in this encounter Discharge Disposition Disposition Code Departure Means Destination Comment s Home or Self Care Discharge completed by TABATHA Pompa. documented in this encounter Progress Notes * Edinson Hernandez DO - 12/09/2024 2:44 PM EST Emergency Medicine Note Patient Name: Luc Erickson Initial Evaluation: 12/09/2024 : 1980 Patient's PCP: Pcp Unknown Physician Emergency Physician: Edinson Hernandez DO History of Present Illness Chief Complaint: Chief Complaint Patient presents with Ankle Pain Per ems from coming home- recent ankle surgery about a week ago at [facility]- now c/o pain and swelling x 4 days - HPI: This 44-year-old male with history of recent left ankle surgery [address] Randolph ([facility]) and had recent follow-up with orthopedics 4 days ago, who presents to the emergency department complaining of worsening left lower leg pain and swelling. He denies any fevers, chills or sweats. No acute trauma. No new numbness or weakness. No palpitations or shortness of breath. No abdominal pain or vomiting or diarrhea. No other acute complaints. Patient is concerned that hemight have a blood clot in his left leg. No other acute complaints. ROS: I have performed a ROS with the pertinent positives and negatives documented in the history ofpresent illness. Previous History No past medical history on file. No past surgical history on file. No family history on file. has No Known Allergies. No current facility-administered medications on file prior to encounter. No current outpatient medications on file prior to encounter. Physical Exam ED Triage Vitals [12/09/24 1458] Temp Heart Rate Resp BP 36.8 ??C (98.2 ??F) 70 20 131/75 SpO2 Temp Source Heart Rate Source Patient Position 98 % Oral Left Lying BP Location FiO2 (%) -- -- General: Alert and oriented x 3, nontoxic, in no acute distress. Following commands appropriately with clear sensorium. Well-appearing, well nourished, in no acute distress Extremities: Well-perfused. No gross signs of acute neurovascular compromise to the left lower extremity of concern. Positive mild swelling around the left ankle near the incision sites. Incision sites appear intact with no obvious signs of acute infection or abscess. No obvious drainage. Good cap refill of less than 2 seconds. No significant calf tenderness or Swelling. The lower extremity tissues are soft and supple with no gross signs of compartment syndrome. Skin: Warm and dry Neuro: Alert and oriented x 3, no obvious gross acute focal deficits Results Labs Reviewed - No data to display Abnormal Labs Reviewed - No data to display Vascular US duplex lower extremity venous left Final Result 1. Negative for left lower extremity deep vein thrombosis. This document has been electronically signed by: Bryan Lentz MD on 12/09/2024 18:01:18 I have discussed the incidental/abnormal imaging and/or lab abnormalities with the patient and haveinstructed them the need for further evaluation and workup with their primary care doctor. The laboratory results, imaging results and other diagnostic exam results were reviewed in the EMR. EKG Interpretation Critical Care Time None ? Medical Decision Making Medications - No data to display ED Course as of 12/09/241912 [facility] Dec 09, [id number] Procedure note: Left leg posterior splint reapplication. Posterior splint was reapplied with padding as the original splint was from done from orthopedics recently. The procedure was well-tolerated with no complications. Neurovascular intact pre and postprocedure. [KN] 1909 Reevaluation note: Patient is stable and in no distress in the ED. There is no DVT on the ultrasound the left leg, that the patient was concerned about. No signs of acute neurovascular compromise or acute infection to the left lower extremity. There are no signs of compartment syndrome. The left lower extremity is neurovascularly intact. Patient appears safe to be discharged home to follow-up with his orthopedist. He will return to the ED if gets worse in any way at all. [KN] ED Course User Index [KN] Edinson Hernandez DO Clinical Impressions as of 12/09/241912 Leg swelling Pain of left lower extremity Procedures Procedures Diagnosis 1. Leg swelling Vascular US duplex lower extremity venous left Vascular US duplex lower extremity venous left 2. Pain of left lower extremity Disposition Discharge ED Prescriptions None Physician Attestation Edinson Hernandez DO 12/09/24 1623 Edinson Hernandez DO 12/09/241912 documented in this encounter Plan of Treatment Not on file documented as of this encounter Procedures Procedure Name Priority Date/Time Associated Diagnosis Comments VAS US DUPLEX LOWER EXT VENOUS LEFT Routine 12/09/2024 5:34 PM EST Leg swelling documented in this encounter Results * Vascular US duplex lower extremity [...] DO CV VASCULAR PROCEDURES Final R esult documented in this encounter Visit Diagnoses Diagnosis Leg swelling- Primary Swelling of limb Pain of left lower extremity documented in this encounter Care Teams Air Export Logistics Manager Relationship Specialty Start Date End Date Physician, Pcp Unknown PCP - General 12/09/24 documented as of this encounter
--- OUTSIDE RECORDS SUMMARY | 2024-12-30 12:56 | XMS_ITS | Encounter Summary ---
Author Organization [employer] Address [address] [place] [address] 7 [place] [address] Care Team Providers Care Study Coordinator Name Role Phone Diann Ramirez MD Primary Care Provider [phone] Reason for Referral * Consultation (Routine) - Closed Specialty Diagnoses / Procedures Referred By Contcary t Referred To Contact Behavioral Health Diagnoses Anxiety Diann Ramirez MD [address] [place] [address] Phone: tel: fax: Referral ID Status Reason Start Date Expiration Date V isits Requested Visits Authorized [id number] Closed Specialty Services Required 03/30/2024 03/30/2025 1 1 Encounter Details Date Type Department Care Team ([facility] st Contact Info) Description 03/30/2024 Orders Only [facility] MED & PEDS [address] [place] [address] Diann Ramirez MD [address] [place] [address] Anxiety (Primary Dx) Social History Tobacco Use [...] [facility] [address] [place] [address] Diann Ramirez MD [address] [place] [address] 03/21/2025 1:30 PM EDT Telemedicine [facility] [address] [place] [address] aNomi Reyes RN [address] [place] [address] Scheduled Referrals Name Type Priority Associated Diagnoses Order Schedule Referral to Behavioral Health Outpatient Referral Routine Anxiety Expected: 03/30/2024 (Approximate), Expires: 03/30/2025 documented as of this encounter Visit Diagnoses Diagnosis Anxiety- Primary Anxiety state, unspecified documented in this encounter Additional Health Concerns Assessment Noted Time PHQ-9 Depression Total Score: 4 03/20/20 24 9:12 AM EDT documented as of this encounter Care Teams Study Coordinator Relationship Specialty Start Date End Date Diann Ramirez MD [address] [place] [id number] PCP - General Internal Medicine 07/16/12 documented as of this encounter
--- OUTSIDE RECORDS SUMMARY | 2024-12-30 12:56 | XMS_ITS | Encounter Summary ---
Author Organization [employer] Address [address] [facility] [address] [place] [address] Care Team Providers Care Ward Supervisor Name Role Phone Diann Ramirez MD Primary Care Provider [phone] Reason for Visit * Reason Onset Date Comments Appointment Request 04/28/2024 Encounter Details Date Type Department Care Team (Late st Contact Info) Description 04/28/2024 Telephone [facility] MEDICINE [address] [place] [address] Diann Ramirez MD [address] [place] [address] Appointment Request Social History Tobacco Use Types [...] won't be able to make it today's [employer]AC[employer]ER visit due to not feeling well and is requesting to reschedule. Please contact pt at [phone]. documented in this encounter Plan of Treatment Upcoming Encounters Date Type Department Care Team (Late st Contact Info) Description 02/15/2025 1:30 PM EDT Office Visit [facility] MED & PEDS [address] [place] [address] Diann Ramirez MD [address] [place] [address] 03/21/2025 1:30 PM EDT Telemedicine [facility] MED & PEDS [address] [place] [address] Naomi Reyes, TABATHA [address] [place] [address] documented as of this encounter Visit Diagnoses Not on filedocumented in this encounter Additional Health Concerns Assessment Noted Time PHQ-9 Depression Total Score: 4 03/20/20 24 9:12 AM EDT documented as of this encounter Care Teams Ward Supervisor Relationship Specialty Start Date End Date Diann Ramirez MD [address] [place] [address] PCP - General Internal Medicine 07/16/12 documented as of this encounter
--- OUTSIDE RECORDS SUMMARY | 2024-12-30 12:56 | XMS_ITS | Clinical Summary ---
Author Organization [employer] Address 75 [facility] 7t [place] [address] Care Team Providers Care Learning Officer Name Role Phone Diann Ramirez MD Primary Care Provider [phone]- [phone] Allergies Active Allergy Reactions Criticality Noted Date [...] 23 Active ergocalciferol (Vitamin D2) 1.25 MG (65911 UT) capsuleIndicati ons:Vitamin D deficiency Take 1 [...] EVERY 6 HOURS. Do not start before December 28, 2024. 120 tablet 12/29/19 25 Active LORazepam (Ativan) 1 MG tabletIndicatio ns:Anxiety TAKE 1 TABLET(1 MG) BY MOUTH EVERY 6 HOURS. Do not start before November 27, 2024. 120 tablet 11/27/19 25 2024 Discontinued(R eorder (will not trigger notification to Pharmacy)) Active Problems Problem Noted Date Diagnosed Date Long-term current use of benzodiazepine 12/21/19 25 Hiatal hernia 10/01/2024 Generalized anxiety disorder 07/27/2024 [...] and protective factors. Referral placed sent to [facility] on 07/21 for OP services. Provided [...] intervention , Patient to reach out to [facility] team as needed, Patient to engage in OP therapy , and Patient to reach out to [facility] as needed Assessment & Plan (03/20/2024 11:35 [...] and protective factors. Referral placed sent to [facility] on 07/21 for OP services. Provided [...] intervention , [facility] as needed, Patient to engage in [...] with RN this week as scheduled. Encounters Date Type Department Care Team Description 12/24/2024 Refill [facility] MED & PEDS [address] [place] [address] Naomi Reyes, RN Anxiety 12/24/2024 Telephone [facility] MED[facility] [address] [place] [address] Diann Ramirez MD Med Refill 12/20/2024 2:00 PM EST Telemedicine [facility] MED & [facility] [address] [place] [address] Naomi Reyes, RN Anxiety; Long-term current use of benzodiazepine 12/20/2024 Travel 11/24/2024 Refill [facility] [address] [place] [address] Diann Ramirez MD Anxiety 11/15/2024 9:15 AM EST Office Visit [facility] [address] [place] [address] Diann Ramirez MD Primary hypertension (Primary Dx); Other closed fracture of distal end of left fibula, initial encounter; Dietary counseling; Exercise counseling; Class 2 severe obesity due to excess calories with serious comorbidity and body mass index (BMI) of 35.0 to 35.9 in adult ([facility]) 11/15/2024 Travel 11/11/2024 Orders Only [facility] External Provider, [facility] 10/27/2024 Refill [facility] [address] [place] [address] Diann Ramirez MD Anxiety 10/01/2024 Telephone [facility] [address] [place] [address] Diann Ramirez MD Results 10/01/2024 Refill [facility] [address] [place] [address] Diann Ramirez MD Anxiety 10/01/2024 Orders Only [facility] [address] [place] [address] Diann Ramirez MD Hiatal hernia (Primary Dx) from Last 3 Months Immunizations Name Administration [...] Upcoming Encounters Date Type Department Care Team ([facility] st Contact Info) Description 02/15/2025 1:30 PM EDT Office Visit [facility] [address] [place] [address] Diann Ramirez MD [address] [place] [address] 03/21/2025 1:30 PM EDT Telemedicine [facility] [address] [place] [address] Naomi Reyes RN [address] [place], [place] [id number] Health Maintenance Due Date Last Done Comments [...] VIEWS LEFT Routine 11/11/2024 10:45 AM EST LIPID PANEL, STANDARD Routine 03/11/2024 1:07 PM [...] EST Narrative 11/26/2024 11:36 AM EST ? [facility] ? [address] ?[place] [address] ?XRay Report ? Signed ? Patient: Stopa,Luc J ?MR#: [id number] ?? 78 ? : 1980 ?Acct:[id number] ? Age/Sex: 44 / M ?ADM Date: 11/26/24 ? Loc: HO.HOSX ? Attending Dr: Misha VELASQUEZ ? Ordering Physician: Anna Bennett PA-C ?? Date of Service: 11/26/24 ?? Procedure(s): XR ankle LT min 3V ?? Accession Number(s): [id number] ? cc: Diann Ramirez MD; Anna Bennett [...] DD/ 1103 ? TD/TT: 11/26/24 1112 ? Wireless Sales Associate: ? Procedure Note Colt Avendaño - 11/26/2024 [facility] [address] [place] [address] [address] [place] [address] XRay Report Signed Patient: Hiral Ericksonhan JMR#: [id number] [birth year] : 1980Acct:[id number] Age/Sex: 44 / MADM Date: 11/26/24 Loc: IAN Attending Dr: Misha VELASQUEZ Ordering Physician: Anna Bennett PA-C Date of Service: 11/26/24 Procedure(s): XR ankle LT min 3V Accession Number(s): [id number] cc: Diann Ramirez MD; Anna Bennett PA-C [...] 11/26/24 1133 DD/ 1103 TD/TT: 11/26/24 1112 Wireless Sales Associate: [facility] External Provider IMG XR PROCEDURES Final Result * FL Guidance in OR (11/24/2024 2:38 PM EST) Anatomical Region Laterality Modality X-Ray Angiograph y 11/24/2024 2:38 PM EST Narrative 11/25/2024 8:58 AM EST ? [facility] ?[address] ?[place] [address] ? Fluoroscopy Report ? Signed ? Patient: Stopa,Luc J ?MR#: [id number] ?? 78 ? : 1980 ?Acct:[id number] ? Age/Sex: 44 / M ?ADM Date: 11/24/24 ? Loc: HO.SSS ? Attending Dr: Will Randolph MD ? Ordering Physician: Will Randolph MD ?? Date of Service: 11/24/24 ?? Procedure(s): FL guidance in OR ?? Accession Number(s): [id number] ? cc: Diann Ramirez MD; Will Randolph [...] ??Jovany Arambula MD ??11/25/2024 08:56 AM EST ? Dictated By: ?Jovany Arambula MD ? Signed By: ?<Electronically signed by Jovany Arambula MD in OV> ?11/25/24 0856 ? DD/ 1438 ? TD/TT: 11/24/24 1527 ? Wireless Sales Associate: ? Procedure Note Colt Avendaño - 11/25/[address] [address] Fluoroscopy Report Signed Patient: Luc Erickson JMR#: [id number] [birth year] : 1980Acct:[id number] Age/Sex: 44 / MADM Date: 11/24/24 Loc: HO.SSS Attending Dr: Will Randolph MD Ordering Physician: Will Randolph MD Date of Service: 11/24/24 Procedure(s): FL guidance in OR Accession Number(s): [id number] cc: Diann Ramirez MD; Will Randolph MD [...] 11/25/24 0856 DD/ 1438 TD/TT: 11/24/24 1527 Wireless Sales Associate: [facility] External Provider IMG IR PROCEDURES Final Result * XR Tibia Fibula 2 Views Left (11/11/2024 10:45 AM EST) Anatomical Region Laterality Modality Lower Extremities, Lower Leg Left Rad iographic Imaging 11/11/2024 10:4 5 AM EST Narrative 11/11/2024 11:32 AM EST ? [facility] ?[address] ?[place] [address] ?XRay Report ? Signed ? Patient: Stopa,Luc J ?MR#: [id number] ?? 78 ? : 1980 ?Acct:[id number] ? Age/Sex: 44 / M ?ADM Date: 01/23/25 ? Loc: HO.ED ? Attending Dr: ? Ordering Physician: Generic ED Physician ?? Date of Service: 11/11/24 ?? Procedure(s): XR tibia fibula LT 2V ?? Accession Number(s): [id number] ? cc: Diann Ramirez MD; Generic ED [...] DD/ 1045 ? TD/TT: 11/11/24 1100 ? Wireless Sales Associate: MSM ? Procedure Note Enricoter, Image - 11/11/2024 [place] [address] XRay Report Signed Patient: Luc Erickson JMR#: [id number] [birth year] : 1980Acct:[id number] Age/Sex: 44 / MADM Date: 11/11/24 Loc: HO.ED Attending Dr: Ordering Physician: Generic ED Physician Date of Service: 11/11/24 Procedure(s): XR tibia fibula LT 2V Accession Number(s): [id number] cc: Diann Ramirez MD; Generic ED Physician [...] 11/11/24 1129 DD/ 1045 TD/TT: 11/11/24 1100 Wireless Sales Associate: MSM us [facility] External Provider IMG XR PROCEDURES Final Result * (ABNORMAL) Lipid Panel, Standard (03/11/2024 1:07 PM EDT) Triglycerides 40 <150 mg/dL [facility] Comment:Desirable Triglyceri de: less than 150 mg/dLBorderline High Triglyceride 150-199 mg/dLHigh Triglyceride: 200-499 mg/dLVery High Triglyceride: greater than or equal to 5OO mg/dL Cholesterol 141 <200 mg/dL [facility] Comment:Desirable Cholestero l: less than 200 mg/dLBorderline High Cholesterol: 200-239 mg/dLHigh Cholesterol: greater than 239 mg/dL LDL Cholesterol Calculated 93 <100 mg/dL [facility] Comment:Desirable LDL: less than 100 mg/dLNear Optimal/Above Optimal LDL: 110- 129 mg/dLBorderline High LDL: 130-159 mg/dLHigh LDL: 160-189 mg/dLVery High LDL: greater than or equal to 190 mg/dL HDL Cholesterol 40(L) >40 mg/dL [facility] Comment:Desirable HDL: great er than 40 mg/dL Note: This HDL assay may give artificially low results in patients with liver disease. Blood Venous blood specimen / Unknown 03/11/2024 1:07 PM EDT 03/11/2024 2:22 PM EDT us Diann Ramirez MD LAB BLOOD ORDERABLES Final Result [facility] [address] [place] [address] [phone] * HIV AB/AG (08/07/2022 2:03 PM EDT) HIV AB/AG Nonreactive Nonreactive [facility] Comment: HIV-1 p24 Ag and/or HIV-1/HIV-2 [...] detection of this assay. ?? [employer] HIV Ag/Ab Combo assay result and supplemental assay results should be interpreted in conjunction with the patient's clinical presentation, history and other laboratory results. ??If the results are inconsistent with clinical evidence, additional testing is suggested to confirm the result. 08/07/2022 2:03 PM EDT us Tra Linton MD HISTORICAL/NON ORDERAB LE LABS Final Result Performing Organization Address City/[facility] Co de Phone Number [facility] * HEPATITIS C AB W/REFL TO HCV RNA, QN, PCR (07/01/2022 10:13 AM EDT) HEPATITIS C ANTIBODY NON-REACT JESSEE NON-REACT JESSEE [facility] INDEX 0.14 <1.00 [facility] Comment: ?? HCV antibody was non-reactive. There is no laboratory ?? evidence of HCV infection. ?? In most cases, no further action is required. However, if recent HCV exposure is suspected, a test for HCV RNA (test code 68320) is suggested. ?? For additional information please refer to http://education.[employer].HackMyPic/faq/KIG59x8 (This link is being provided for informational/ educational purposes only.) ?? 07/01/2022 10:1 3 AM EDT us Diann Ramirez MD HISTORICAL/NON ORDERABLE LA BS Final Result Performing Organization Address [facility] Co de Phone Number [facility] [address] from Last 3 Months or Most Recently Relevant to Health Maintenance Insurance [facility] Care Teams Learning Officer Relationship Specialty Start Date End Date Diann Ramirez MD [address] [place] [address] [place] [address] PCP - General Internal Medicine 07/16/12
--- OUTSIDE RECORDS SUMMARY | 2024-12-30 12:56 | XMS_ITS | Encounter Summary ---
Author Organization [employer] Address 75 [facility] 7 [place] [address] Care Team Providers Care Sap Security Consultant Name Role Phone Diann Ramirez MD Primary Care Provider [phone] Reason for Visit * Reason Onset Date Comments Referral 11/21/2022 Encounter Details Date Type Department Care Team (Late st Contact Info) Description 11/21/2022 Telephone [facility] MEDICINE [address] [place] [address] Diann Ramirez MD [address] [place] [address] Referral Social History Tobacco Use Types Packs/Day [...] by Dr Linton Please contact pt at [phone] Please see above message. Thanks * Telephone Encounter - Mario Tavaresos - 11/21/2022 2:42 PM EST Tc from pt requesting a new referral for neurologist states don't want to be seen by Dr Linton Please contact pt at [phone] documented in this encounter Plan of Treatment Upcoming Encounters Date Type Department Care Team ([facility] st Contact Info) Description 02/15/2025 1:30 PM EDT Office Visit [facility] PED[facility] [address] [place] [address] Diann Ramirez MD [address] [place] [address] 03/21/2025 1:30 PM EDT Telemedicine [facility] PED[facility] [address] [place] [address] Naomi Reyes RN [address] [place] [address] documented as of this encounter Visit Diagnoses Diagnosis Chronic cluster headache, not intractable- Primary documented in this encounter Additional Health Concerns Assessment Noted Time PHQ-9 Depression Total Score: 1 10/31/19 23 3:59 PM EST documented as of this encounter Care Teams Sap Security Consultant Relationship Specialty Start Date End Date Diann Ramirez MD [address] [place] [address] PCP - General Internal Medicine 07/16/12 documented as of this encounter
--- OUTSIDE RECORDS SUMMARY | 2024-12-30 12:56 | XMS_ITS | Encounter Summary ---
Author Organization [employer] Address 75 [facility] 7t [place] [address] Care Team Providers Care Action Finisher Name Role Phone Diann Ramirez MD Primary Care Provider [phone] Reason for Visit * Reason Comments controlled substance treatment Encounter Details Date Type Department Care Team (Latest Contact Info) Description 12/20/2024 2:00 PM EST Telemedicine [facility] MED [facility] P[facility] [address] [place] [address] Naomi Reyes, RN [address] [place], [place] Anxiety; Long-term current use of benzodiazepine Social History Tobacco Use Types Packs/Day Years [...] AM EDT documented as of this encounter Progress Notes * Naomi Reyes RN - 12/20/2024 2:00 PM EST S: SWIMMER Televisit. Patient is taking Lorazepam 1mg qid PRN. States has been taking medications as prescribed. Denies any adverse events. Patient is also using Suboxone. Denies smoking, ETOH or illicitdrugs use. Last PCP appointment was on 11/15/24. No questions/ concerns at this time. O: RN MOBILE checked on 12/20/24. Pill count performed over the phone, patient states he has 34 pills left,34 expected. Medication is not being overused by patient. A: Benzodiazepine use r/t anxiety. P: Patient to cont. with current medication regimen as needed and take medication only as directed.SWIMMER NV scheduled for 03/21/25 @ 1:30pm. f/u with PCP 02/15/25. f/u sooner PRN. Patient verbalized understanding and agreed to plan. documented in this encounter Plan of Treatment Upcoming Encounters Date Type Department Care Team (Late st Contact Info) Description 02/15/2025 1:30 PM EDT Office Visit [facility] [address] [place] [address] Diann Ramirez MD [address] [place] [address] 03/21/2025 1:30 PM EDT Telemedicine [facility] [address] [place] [address] Naomi Reyes, TABATHA [address] [place] [address] documented as of this encounter Visit Diagnoses Diagnosis Anxiety Anxiety state, unspecified Long-term current use of benzodiazepine documented in this encounter Additional Health Concerns Assessment Noted Time PHQ-9 Depression Total Score: 4 03/20/20 24 9:12 AM EDT documented as of this encounter Care Teams Action Finisher Relationship Specialty Start Date End Date Diann Ramirez MD [address] [place] [address] PCP - General Internal Medicine 07/16/12 documented as of this encounter
--- OUTSIDE RECORDS SUMMARY | 2024-12-30 12:56 | XMS_ITS | Encounter Summary ---
Author Organization [employer] Address [address] [place] [address] 7 [place] [address] Care Team Providers Care Supervisor [employer] Stockyard Name Role Phone Diann Ramirez MD Primary Care Provider [phone] Reason for Visit * Reason Onset Date Comments Med Refill 12/24/2024 Encounter Details Date Type Department Care Team ([facility] st Contact Info) Description 12/24/2024 Refill [facility] PEDS [address] [place] [address] Naomi Reyes, RN [address] [place], [place] Anxiety Social History Tobacco Use Types Packs/Day [...] Description 02/15/2025 1:30 PM EDT Office Visit [facility] PED[facility] [address] [place] [address] Diann Ramirez MD [address] [place] [address] 03/21/2025 1:30 PM EDT Telemedicine [facility] [address] [place] [address] Naomi Reyes, TABATHA [address] [place] [address] documented as of this encounter Visit Diagnoses Diagnosis Anxiety Anxiety state, unspecified documented in this encounter Additional Health Concerns Assessment Noted Time PHQ-9 Depression Total Score: 4 03/20/20 24 9:12 AM EDT documented as of this encounter Care Teams Supervisor [employer] Relationship Specialty Start Date End Date Diann Ramirez MD [address] [place] [address] PCP - General Internal Medicine 07/16/12 documented as of this encounter
--- OUTSIDE RECORDS SUMMARY | 2024-12-30 12:56 | XMS_ITS | Encounter Summary ---
Author Organization [employer] Address 75 [facility] 7 [place] [address] Care Team Providers Care Fbi Field Agent Name Role Phone Diann Ramirez MD Primary Care Provider [phone] Reason for Visit * Reason Onset Date Comments Med Refill 05/31/2024 Encounter Details Date Type Department Care Team (Late st Contact Info) Description 05/31/2024 Telephone [facility] MEDICINE [address] [place] [address] Diann Ramirez MD [address] [place] [address] Med Refill Social History Tobacco Use Types [...] 1 MG tablet To be sent to: [id number] [place] - [address] [facility] [place] [facility] documented in this encounter Plan of Treatment Upcoming Encounters Date Type Department Care Team (Late st Contact Info) Description 02/15/2025 1:30 PM EDT Office Visit [facility] MED & PEDS [address] [place] [address] Diann Ramirez MD [address] [place] [address] 03/21/2025 1:30 PM EDT Telemedicine [facility] MED & PEDS [address] [place] [address] Naomi Reyes, TABATHA [address] [place] [address] documented as of this encounter Visit Diagnoses Not on filedocumented in this encounter Additional Health Concerns Assessment Noted Time PHQ-9 Depression Total Score: 4 03/20/20 24 9:12 AM EDT documented as of this encounter Care Teams Fbi Field Agent Relationship Specialty Start Date End Date Diann Ramirez MD [address] [place] [address] PCP - General Internal Medicine 07/16/12 documented as of this encounter
--- OUTSIDE RECORDS SUMMARY | 2024-12-30 12:56 | XMS_ITS | Encounter Summary ---
Author Organization [employer] Address 75 [facility] 7 [place] [address] Care Team Providers Care Director Of Premium Seat Sales Name Role Phone Diann Ramirez MD Primary Care Provider [phone] Reason for Visit * Reason Onset Date Comments Appointment Request 01/06/2023 Encounter Details Date Type Department Care Team (Late st Contact Info) Description 01/06/2023 Telephone [facility] MEDICINE [address] [place] [address] Diann Ramirez MD [address] [place] [address] Appointment Request Social History Tobacco Use Types [...] requesting to r/s appt on 01/06/23 ( [facility] [employer] Televisit ) documented in this encounter Plan of Treatment Upcoming Encounters Date Type Department Care Team (Late st Contact Info) Description 02/15/2025 1:30 PM EDT Office Visit [facility] MED & PEDS [address] [place] [address] Diann Ramirez MD [address] [place] [address] 03/21/2025 1:30 PM EDT Telemedicine [facility] MED & PEDS [address] [place] [address] Naomi Reyes, TABATHA [address] [place] [address] documented as of this encounter Visit Diagnoses Not on filedocumented in this encounter Additional Health Concerns Assessment Noted Time PHQ-9 Depression Total Score: 1 10/31/19 23 3:59 PM EST documented as of this encounter Care Teams Director Of Premium Seat Sales Relationship Specialty Start Date End Date Diann Ramirez MD [address] [place] [address] PCP - General Internal Medicine 07/16/12 documented as of this encounter
--- OUTSIDE RECORDS SUMMARY | 2024-12-30 12:56 | XMS_ITS | Encounter Summary ---
Author Organization [employer] Address 75 [facility] 7t [place] [address] Care Team Providers Care Washing Tub Operator Name Role Phone Diann Ramirez MD Primary Care Provider [phone] Encounter Details Date Type Department Care Team (Late st Contact Info) Description 10/01/2024 Orders Only [facility] MED & PEDS [address] [place], [place] [id number] Diann Ramirez MD [address] [place] [address] Hiatal hernia (Primary Dx) Social History Tobacco [...] Description 02/15/2025 1:30 PM EDT Office Visit [facility] MED & PEDS [address] [place] [address] Diann Ramirez MD [address] [place] [address] 03/21/2025 1:30 PM EDT Telemedicine [facility] MED & PEDS [address] [place] [address] Naomi Reyes RN [address] [place] [address] documented as of this encounter Visit Diagnoses Diagnosis Hiatal hernia- Primary Diaphragmatic hernia without mention of obstruction or gangrene documented in this encounter Additional Health Concerns Assessment Noted Time PHQ-9 Depression Total Score: 4 03/20/20 24 9:12 AM EDT documented as of this encounter Care Teams Washing Tub Operator Relationship Specialty Start Date End Date Diann Ramirez MD [address] [place] [address] PCP - General Internal Medicine 07/16/12 documented as of this encounter
--- OUTSIDE RECORDS SUMMARY | 2024-12-30 12:56 | XMS_ITS | Encounter Summary ---
Author Organization [employer] Address 75 [facility] 7 [place] [address] Care Team Providers Care Display Artist Name Role Phone Diann Ramirez MD Primary Care Provider [phone] Reason for Visit * Reason Onset Date Comments Appointment Request 06/17/2024 Encounter Details Date Type Department Care Team ([facility] st Contact Info) Description 06/17/2024 Telephone [facility] MEDICINE [address] [place] [address] Diann Ramirez MD [address] [place] [address] Appointment Request Social History Tobacco Use Types [...] would like a sooner appt than what junior underwriter offered documented in this encounter Plan of Treatment Upcoming Encounters Date Type Department Care Team (Late st Contact Info) Description 02/15/2025 1:30 PM EDT Office Visit [facility] MED & PEDS [address] [place] [address] Diann Ramirez MD [address] [place] [address] 03/21/2025 1:30 PM EDT Telemedicine [facility] MED & PEDS [address] [place] [address] Naomi Reyes, TABATHA [address] [place] [address] documented as of this encounter Visit Diagnoses Not on filedocumented in this encounter Additional Health Concerns Assessment Noted Time PHQ-9 Depression Total Score: 4 03/20/20 24 9:12 AM EDT documented as of this encounter Care Teams Display Artist Relationship Specialty Start Date End Date Diann Ramirez MD [address] [place] [address] PCP - General Internal Medicine 07/16/12 documented as of this encounter
--- OUTSIDE RECORDS SUMMARY | 2024-12-30 12:56 | XMS_ITS | Encounter Summary ---
Author Organization [employer] Address 75 [facility] 7 [place] [address] Care Team Providers Care Set Up Worker Name Role Phone Diann Ramirez MD Primary Care Provider [phone] Reason for Visit * Reason Onset Date Comments Appointment Request 01/13/2024 Encounter Details Date Type Department Care Team (Late st Contact Info) Description 01/13/2024 Telephone [facility] MEDICINE [address] [place] [address] Diann Ramirez MD [address] [place] [address] Appointment Request Social History Tobacco Use Types [...] Description 02/15/2025 1:30 PM EDT Office Visit [facility] MED & PEDS [address] [place] [address] Diann Ramirez MD [address] [place] [address] 03/21/2025 1:30 PM EDT Telemedicine [facility] MED & PEDS [address] [place] [address] Naomi Reyes, TABATHA [address] [place] [address] documented as of this encounter Visit Diagnoses Not on filedocumented in this encounter Additional Health Concerns Assessment Noted Time PHQ-9 Depression Total Score: 1 10/31/19 23 3:59 PM EST documented as of this encounter Care Teams Set Up Worker Relationship Specialty Start Date End Date Diann Ramirez MD [address] [place] [address] PCP - General Internal Medicine 07/16/12 documented as of this encounter
--- OUTSIDE RECORDS SUMMARY | 2024-12-30 12:56 | XMS_ITS | Encounter Summary ---
Author Organization [employer] Address 75 [facility] 7 [place] [address] Care Team Providers Care Artist Consultant Name Role Phone Diann Ramirez MD Primary Care Provider +1 [phone] Reason for Visit * Reason Onset Date Comments Med Refill 07/28/2024 Encounter Details Date Type Department Care Team (Late st Contact Info) Description 07/28/2024 Telephone [facility] MEDICINE [address] [place] [address] Diann Ramirez MD [address] [place], [place] [phone] Med Refill Social History Tobacco Use Types [...] 1 MG tablet To be sent to: [id number] [place] - [address] [place] [address] AT [facility] documented in this encounter Plan of Treatment Upcoming Encounters Date Type Department Care Team (Late st Contact Info) Description 02/15/2025 1:30 PM EDT Office Visit [facility] [address] [place] [address] Diann Ramirez MD [address] [place] [address] 03/21/2025 1:30 PM EDT Telemedicine [facility] [address] [place] [address] Naomi Reyes RN [address] [place] [address] documented as of this encounter Visit Diagnoses Not on filedocumented in this encounter Additional Health Concerns Assessment Noted Time PHQ-9 Depression Total Score: 4 03/20/20 24 9:12 AM EDT documented as of this encounter Care Teams Artist Consultant Relationship Specialty Start Date End Date Diann Ramirez MD [address] [place] [address] PCP - General Internal Medicine 07/16/12 documented as of this encounter
--- OUTSIDE RECORDS SUMMARY | 2024-12-30 12:56 | XMS_ITS | Encounter Summary ---
Author Organization [employer] Address [address] [facility] [address] [place] [address] Care Team Providers Care Communications Senior Associate Name Role Phone Diann Ramirez MD Primary Care Provider +1 [phone] Encounter Details Date Type Department Care Team (Latest Contact Info) Description 12/20/2024 Travel Social History Tobacco Use Types Packs/Day [...] Office Visit [facility] [address] [place] [address] Diann Ramirez MD [address] [place] [address] 03/21/2025 1:30 PM EDT Telemedicine [facility] [address] [place] [address] Naomi Reyes RN 505 [place] [address] documented as of this encounter Visit Diagnoses Not on filedocumented in this encounter Additional Health Concerns Assessment Noted Time PHQ-9 Depression Total Score: 4 03/20/20 24 9:12 AM EDT documented as of this encounter Care Teams Communications Senior Associate Relationship Specialty Start Date End Date Diann Ramirez MD [address] [place] [address] PCP - General Internal Medicine 07/16/12 documented as of this encounter
--- OUTSIDE RECORDS SUMMARY | 2024-12-30 12:56 | XMS_ITS | Encounter Summary ---
Author Organization [employer] Address 75 [facility] 7 [place] [address] Care Team Providers Care Geotechnicial Properties Technician Name Role Phone Diann Ramirez MD Primary Care Provider +1 [phone] Reason for Visit * Reason Onset Date Comments Med Refill 12/24/2024 Encounter Details Date Type Department Care Team (Late st Contact Info) Description 12/24/2024 Telephone [facility] MEDICINE [address] [place] [address] Diann Ramirez MD [address] [place], [place] [phone] Med Refill Social History Tobacco Use Types [...] encounter Miscellaneous Notes * Telephone Encounter - Zonia Donato - 12/24/2024 8:28 AM EST Tc from pt requesting medication refill for LORazepam (Ativan) 1 MG tablet documented in this encounter Plan of Treatment Upcoming Encounters Date Type Department Care Team (Late st Contact Info) Description 02/15/2025 1:30 PM EDT Office Visit [facility] [address] [place] [address] Diann Ramirez MD [address] [place] [address] 03/21/2025 1:30 PM EDT Telemedicine [facility] [address] [place] [address] Naomi Reyes RN [address] [place] [address] documented as of this encounter Visit Diagnoses Not on filedocumented in this encounter Additional Health Concerns Assessment Noted Time PHQ-9 Depression Total Score: 4 03/20/20 24 9:12 AM EDT documented as of this encounter Care Teams Geotechnicial Properties Technician Relationship Specialty Start Date End Date Diann Ramirez MD [address] [place] [address] PCP - General Internal Medicine 07/16/12 documented as of this encounter
--- OUTSIDE RECORDS SUMMARY | 2024-12-30 12:56 | XMS_ITS | Encounter Summary ---
Author Organization [employer] Address 75 [facility] 7 [place] [address] Care Team Providers Care Crochet Machine Operator Name Role Phone Diann Ramirez MD Primary Care Provider [phone] Reason for Visit * Reason Onset Date Comments Med Refill 11/25/2022 Encounter Details Date Type Department Care Team (Late st Contact Info) Description 11/25/2022 Telephone [facility] MEDICINE [address] [place] [address] Diann Ramirez MD [address] [place] [address] Med Refill Social History Tobacco Use Types [...] Description 02/15/2025 1:30 PM EDT Office Visit [facility] [address] [place] [address] Diann Ramirez MD [address] [place] [address] 03/21/2025 1:30 PM EDT Telemedicine [facility] [address] [place] [address] Naomi Reyes RN [address] [place] [address] documented as of this encounter Visit Diagnoses Not on filedocumented in this encounter Additional Health Concerns Assessment Noted Time PHQ-9 Depression Total Score: 1 10/31/19 23 3:59 PM EST documented as of this encounter Care Teams Crochet Machine Operator Relationship Specialty Start Date End Date Diann Ramirez MD [address] [place] [address] PCP - General Internal Medicine 07/16/12 documented as of this encounter
--- OUTSIDE RECORDS SUMMARY | 2024-12-30 12:56 | XMS_ITS | Encounter Summary ---
Author Organization [employer] Address 75 [facility] 7t [place] [address] Care Team Providers Care Silk Brusher Name Role Phone Diann Ramirez MD Primary Care Provider [phone] [phone] Encounter Details Date Type Department Care Team (Late st Contact Info) Description 05/18/2024 Orders Only [facility] [address] [place], [place] [phone] Provider, MD Shar Social History Tobacco Use [...] [facility] [address] [place] [address] Diann Ramirez MD [address] [place] [address] 03/21/2025 1:30 PM EDT Telemedicine [facility] [address] [place] [address] Naomi Reyes RN [address] [place] [address] documented as of this encounter Procedures Procedure Name Priority Date/Time Associated Diagnosis Comments EMG Routine 05/17/2024 10:39 AM EDT documented in this encounter Results * EMG (05/17/2024 10:39 AM EDT) Historical Provider NEUROLOGY ORDERABLES Rhea l Result documented in this encounter Visit Diagnoses Not on filedocumented in this encounter Additional Health Concerns Assessment Noted Time PHQ-9 Depression Total Score: 4 03/20/20 24 9:12 AM EDT documented as of this encounter Care Teams Silk Brusher Relationship Specialty Start Date End Date Diann Ramirez MD [address] [place] [address] PCP - General Internal Medicine 07/16/12 documented as of this encounter
--- OUTSIDE RECORDS SUMMARY | 2024-12-30 12:56 | XMS_ITS | Encounter Summary ---
Author Organization [employer] Address 75 [facility] 7 [place] [address] Care Team Providers Care Trust Manager Assistant Name Role Phone Diann Ramirez MD Primary Care Provider [phone] Reason for Visit * Reason Onset Date Comments Appointment Request 06/11/2024 Encounter Details Date Type Department Care Team ([facility] st Contact Info) Description 06/11/2024 Telephone [facility] MEDICINE [address] [place] [address] Diann Ramirez MD [address] [place] [address] Appointment Request Social History Tobacco Use Types [...] Tc from pt calling in regards to INSECT CONTROL INSPECTOR visit from 06/18 that was canceled and is requesting to reschedule. Please contact pt at [phone]. documented in this encounter Plan of Treatment Upcoming Encounters Date Type Department Care Team (Late st Contact Info) Description 02/15/2025 1:30 PM EDT Office Visit [facility] [address] [place] [address] Diann Ramirez MD [address] [place] [address] 03/21/2025 1:30 PM EDT Telemedicine [facility] [address] [place] [address] Naomi Reyes, TABATHA 505 [place] [address] documented as of this encounter Visit Diagnoses Not on filedocumented in this encounter Additional Health Concerns Assessment Noted Time PHQ-9 Depression Total Score: 4 03/20/20 24 9:12 AM EDT documented as of this encounter Care Teams Trust Manager Assistant Relationship Specialty Start Date End Date Diann Ramirez MD [address] [place] [address] PCP - General Internal Medicine 07/16/12 documented as of this encounter
== END 2024-12-30 11:18 | disposition home or self-care (01) ==
LOC: HO.HOS 10:23
PROVIDERS: PCP Internal Medicine; Visit Provider Physician Assistant
DX: Z98.890 Other specified postprocedural states (principal); Z87.81 Personal history of (healed) traumatic fracture; S82.892A Other fracture of left lower leg, initial encounter for closed fracture
CPT/HCPCS: 99024

== ENCOUNTER → 2024-12-30 10:24 | Outpatient (BNV) | payer MEDICAID, SELFPAY | PROVIDERS: Visit Provider Radiology Diagnostic Radiology | DX: M25.572 Pain in left ankle and joints of left foot (principal) | CPT/HCPCS: 73610 ==

== ENCOUNTER 2025-02-08 10:40 | Outpatient (REF) | payer MEDICAID, SELFPAY ==
--- NOTE | ~2025-02-08 | XR_ITS ---
EXAMINATION: XR CHEST CLINICAL INFORMATION: Left sided chest pain COMPARISON: August 10, 2024 TECHNIQUE: 2 views of the chest were obtained. FINDINGS: No consolidation, pleural effusion or pneumothorax. Cardiomediastinal silhouette size is normal. Osseous structures are intact. Mild spondylosis, thoracic spine. XR/XR chest 2V IMPRESSION: No acute airspace disease. Stable chest. Electronically signed by: Billy Mcdonald MD 02/09/2025 08:40 AM EDT
--- OUTSIDE RECORDS SUMMARY | 2025-02-08 12:42 | XMS_ITS | Encounter Summary ---
Author Organization [employer] Address [address] [facility] [address] 7t [place] [address] Care Team Providers Care Jewel Sorter Name Role Phone Diann Ramirez MD Primary Care Provider [phone] Encounter Details Date Type Department Care Team (Latest Contact Info) Description 02/08/2025 Travel Social History Tobacco Use Types Packs/Day [...] Upcoming Encounters Date Type Department Care Team ([facility] st Contact Info) Description 03/21/2025 1:30 PM EDT Telemedicine [facility] MED & PEDS 505 [place] [address] Naomi Reyes, TABATHA 505 [place] [address] documented as of this encounter Visit Diagnoses Not on filedocumented in this encounter Additional Health Concerns Assessment Noted Time PHQ-9 Depression Total Score: 4 03/20/20 24 9:12 AM EDT documented as of this encounter Care Teams Jewel Sorter Relationship Specialty Start Date End Date Diann Ramirez MD [address] [place] [address] PCP - General Internal Medicine 07/16/12 documented as of this encounter
--- OUTSIDE RECORDS SUMMARY | 2025-02-08 12:42 | XMS_ITS | Encounter Summary ---
Author Organization [employer] Address 75 [facility] 7 [place] [address] Care Team Providers Care General Contractor Name Role Phone Diann Ramirez MD Primary Care Provider [phone] Reason for Visit * Reason Onset Date Comments Med Refill 05/31/2024 Encounter Details Date Type Department Care Team (Late st Contact Info) Description 05/31/2024 Telephone [facility] MEDICINE [address] [place] [address] Diann Ramirez MD 505 [place] [address] Med Refill Social History Tobacco Use Types [...] 1 MG tablet To be sent to: [id number] - [place] - [address] [facility] [place] [facility] documented in this encounter Plan of Treatment Upcoming Encounters Date Type Department Care Team (Late st Contact Info) Description 03/21/2025 1:30 PM EDT Telemedicine [facility] CHC MED & PEDS 505 [place] [address] Naomi Reyes, TABATHA 505 [place] [address] documented as of this encounter Visit Diagnoses Not on filedocumented in this encounter Additional Health Concerns Assessment Noted Time PHQ-9 Depression Total Score: 4 03/20/20 24 9:12 AM EDT documented as of this encounter Care Teams General Contractor Relationship Specialty Start Date End Date Diann Ramirez MD [address] [place] [address] PCP - General Internal Medicine 07/16/12 documented as of this encounter
--- OUTSIDE RECORDS SUMMARY | 2025-02-08 12:42 | XMS_ITS | Encounter Summary ---
Author Organization [employer] Address 75 [facility] 7t [place] [address] Care Team Providers Care Stable Attendant Name Role Phone Diann Ramirez MD Primary Care Provider [phone] Encounter Details Date Type Department Care Team (Late st Contact Info) Description 01/17/2025 Orders Only [facility] CHC MED & PEDS 505 [place], [place] [phone] Diann Ramirez MD 505 [place] [address] Primary hypertension (Primary Dx) Social History Tobacco Use Types [...] Upcoming Encounters Date Type Department Care Team ([facility] st Contact Info) Description 03/21/2025 1:30 PM EDT Telemedicine [facility] MED & PEDS [address] [place] [address] Naomi Reyes RN [address] [place] [address] documented as of this encounter Visit Diagnoses Diagnosis Primary hypertension- Primary Unspecified essential hypertension documented in this encounter Additional Health Concerns Assessment Noted Time PHQ-9 Depression Total Score: 4 03/20/20 24 9:12 AM EDT documented as of this encounter Care Teams Stable Attendant Relationship Specialty Start Date End Date Diann Ramirez MD [address] [place] [address] PCP - General Internal Medicine 07/16/12 documented as of this encounter
--- OUTSIDE RECORDS SUMMARY | 2025-02-08 12:42 | XMS_ITS | Encounter Summary ---
Author Organization [employer] Address 75 [facility] 7t [place] [address] Care Team Providers Care Boiler House Supervisor Name Role Phone Diann Ramirez MD Primary Care Provider [phone] Encounter Details Date Type Department Care Team (Late Contact Info) Description 10/18/2022 Orders Only [facility] MEDICINE [address] [place] [address] Diann Ramirez MD [address] [place], [place] [phone] Acute cough; Bronchospasm Social History Tobacco Use [...] Department Care Team (Late Contact Info) Description 03/21/2025 1:30 PM EDT Telemedicine [facility] CHC MED & PEDS 505 [place], [place] [phone] Naomi Reyes, TABATHA 505 [place], [place] [phone] documented as of this encounter Visit Diagnoses Diagnosis Acute cough Bronchospasm Acute bronchospasm documented in this encounter Care Teams Boiler House Supervisor Relationship Specialty Start Date End Date Diann Ramirez MD [address] [place] [address] PCP - General Internal Medicine 07/16/12 documented as of this encounter
--- OUTSIDE RECORDS SUMMARY | 2025-02-08 12:42 | XMS_ITS | Clinical Summary ---
Author Organization [employer] Address 75 [facility] 7t [place] [address] Care Team Providers Care Risk Control Officer Name Role Phone Diann Ramirez MD Primary Care Provider [phone] Allergies Active Allergy Reactions Criticality Noted Date [...] area 2 times a day 100 g 03/11/20 23 Active ergocalciferol (Vitamin D2) 1.25 MG (54134 UT) capsuleIndicati ons:Vitamin D deficiency Take 1 capsule (1.25 mg) by mouth 1 (one) time per week. 12 capsule 03/12/20 24 Active Blood Pressure kitIndications: Primary hypertension Take by on arm route as directed 1 kit 03/12/20 24 Active hydrOXYzine pamoate (Vistaril) 50 MG capsuleIndicati ons:Anxiety Take 1 capsule (50 mg) by mouth 3 times daily. 90 capsule 3 04/02/20 24 Active Simethicone (Gas-Ex) 125 MG tablet tabletIndicatio ns:Bloating symptom Take 1 tablet (125 mg) by mouth every 6 (six) hours if needed (Bloating). 120 tablet 1 07/14/20 24 Active atenolol (Tenormin) 25 MG tabletIndicatio ns:Primary hypertension Take 1 tablet (25 mg) by mouth Once per day. 90 tablet 3 01/19/20 25 2025 Active LORazepam (Ativan) 1 MG tabletIndicatio ns:Anxiety TAKE 1 TABLET(1 MG) BY MOUTH EVERY 6 HOURS. 120 tablet 01/25/20 Active meloxicam (Mobic) 15 MG tabletIndicatio ns:Pain of left calf,Other chest pain Take 1 tablet (15 mg) by mouth Once per day. 30 tablet 11 02/09/20 25 2025 Active meloxicam (Mobic) 15 MG tabletIndicatio ns:Pain of left calf,Other chest pain Take 1 tablet (15 mg) by mouth Once per day. 30 tablet 11 02/09/20 25 2025 Active Omeprazole 20 MG tablet delayed-release Indications:Hia sherman hernia Take 1 tablet (20 mg) by mouth Once per day. 30 tablet 1 02/09/20 Active atenolol (Tenormin) 50 MG tablet Take 1 tablet (50 mg) by mouth Once per day. 30 tablet 07/14/20 24 2024 Discontinued(R eorder (will not trigger notification to Pharmacy)) Omeprazole 20 MG tablet delayed-release Indications:Hia sherman hernia Take 1 tablet (20 mg) by mouth Once per day. 30 tablet 1 10/01/20 24 2024 Discontinued(R eorder (will not trigger notification to Pharmacy)) LORazepam (Ativan) 1 MG tabletIndicatio ns:Anxiety TAKE 1 TABLET(1 MG) BY MOUTH EVERY 6 HOURS. Do not start before December 28, 2024. 120 tablet 12/29/19 25 2024 Discontinued(R eorder (will not trigger notification to Pharmacy)) atenolol (Tenormin) 50 MG tablet Take 1 tablet (50 mg) by mouth Once per day. 30 tablet 01/15/20 25 2024 Discontinued(R eorder (will not trigger notification to Pharmacy)) atenolol (Tenormin) 50 MG tabletIndicatio ns:Primary hypertension Take 1 tablet (50 mg) by mouth Once per day. 90 tablet 3 01/18/20 25 2024 Discontinued(T herapy completed) Active Problems Problem Noted Date Diagnosed Date Long-term current use of benzodiazepine 12/21/19 Hiatal hernia 10/01/2024 Generalized anxiety disorder 07/27/2024 [...] and protective factors. Referral placed sent to [facility] on 07/21 for OP services. Provided [...] intervention , Patient to reach out to [facility] team as needed, Patient to engage [...] and protective factors. Referral placed sent to [facility] on 07/21 for OP services. Provided [...] intervention , Patient to reach out to [facility] team as needed, Patient to engage in OP therapy , and Patient to reach out to [facility] as needed Thrombocytopenia 03/20/2024 Assessment & Plan [...] Encounters Date Type Department Care Team Description 02/08/2025 9:40 AM EDT Office Visit [facility] MED & PEDS [address] [place] [address] Diann Ramirez MD Pain of left calf (Primary Dx); Other chest pain; Hiatal hernia 02/08/2025 Travel 02/04/2025 Telephone [facility] & PEDS [address] [place] [address] Diann Ramirez MD Nurse Triage 01/24/2025 Refill [facility] MEDICINE [address] [place], [place] [phone] Diann Ramirez MD Anxiety 01/17/2025 Orders Only [facility] MED & PEDS [address] [place] [address] Diann Ramirez MD Primary hypertension (Primary Dx) 01/17/2025 Telephone [facility] MED & PEDS 505 [facility] [place] [address] Diann Ramirez MD Medication Question 01/14/2025 Refill [facility] & PEDS [address] [facility] [place] [address] Diann Ramirez MD 01/14/2025 Refill [facility] MEDICINE [address] [place] [address] Diann Ramirez MD 12/31/2024 Population Health Risk Score [facility] () Department [address] [place] [phone] Provider, Population Health Generic 12/24/2024 Refill [facility] & PEDS [address] [place] [address] Naomi Reyes RN Anxiety 12/24/2024 Telephone [facility] MEDICINE [address] [place] [address] Diann Ramirez MD Med Refill 12/20/2024 2:00 PM EST Telemedicine [facility] MED & PEDS [address] [place] [address] Naomi Reyes, RN Anxiety; Long-term current use of benzodiazepine 12/20/2024 Travel 11/24/2024 Refill [facility] MEDICINE [address] [place] [address] Diann Ramirez MD Anxiety 11/15/2024 9:15 AM EST Office Visit [facility] MED & PEDS [address] [place] [address] Diann Ramirez MD Primary hypertension (Primary Dx); Other closed fracture of distal end of left fibula, initial encounter; Dietary counseling; Exercise counseling; Class 2 severe obesity due to excess calories with serious comorbidity and body mass index (BMI) of 35.0 to 35.9 in adult ([facility]) 11/15/2024 Travel 11/11/2024 Orders Only [facility] External Provider, [facility] from Last 3 Months Immunizations Name Administration [...] Sign Reading Time Taken Comments Blood Pressure 149/78 02/08/2025 9:44 AM EDT Pulse 61 02/08/2025 9:44 AM EDT Temperature 36.6 ??C (97.8 ??F) 02/08/2025 9:44 AM ED T Respiratory Rate 20 02/08/2025 9:44 AM EDT Oxygen Saturation 97% 02/08/2025 9:44 AM EDT Inhaled Oxygen Concentration - - Weight 114 kg (251 lb) 02/08/2025 9:44 AM EDT Height 180.3 cm (5' 11 ) 02/08/2025 9:44 AM EDT Body Mass Index 35.01 02/08/2025 9:44 AM EDT Plan of Treatment Upcoming Encounters Date Type Department Care Team ([facility] st Contact Info) Description 03/21/2025 1:30 PM EDT Telemedicine [facility] CHC MED & PEDS [address] [place] [address] Naomi Reyes, RN 505 [place] [address] Health Maintenance Due Date Last Done Comments [...] Procedure Name Priority Date/Time Associated Diagnosis Comments ECG 12-LEAD Routine 02/08/2025 11:16 AM EDT Other chest pain XR ANKLE 3+ VIEWS LEFT Routine 11/26/2024 [...] Recently Relevant to Health Maintenance Results * ECG 12 lead (02/08/2025 11:16 AM EDT) Diann Roca MD - 02/08/2025 11:16 AM EDT Heart rate 52 bpm. ??[place] 50 degrees. ??Normal sinus rhythm. ??First-degree AV block. ??No signs of left atrial enlargement or right atrial enlargement. ??No sign of hypertrophy. ??No ST elevation or ST depression. ?? Normal T waves. ??EKG without significant abnormalities. us Diann Ramirez MD ECG ORDERABLES Final Resul t * XR Ankle 3+ Views Left (11/26/2024 11:03 AM EST) Only the most recent of3 resultswithin the time period is included. Anatomical Region Laterality Modality Lower Extremities, Ankle Left Radiogr aphic Imaging 11/26/2024 11:0 3 AM EST Narrative 11/26/2024 11:36 AM EST ? [facility] ? [address] ?[place] [address] ?XRay Report ? Signed ? Patient: Stopa,Luc J ?MR#: [id number] ?? 78 ? : 1980 ?Acct:[id number] ? Age/Sex: 44 / M ?ADM Date: 11/26/24 ? Loc: HO.HOSX ? Attending Dr: Misha VELASQUEZ ? Ordering Physician: Anna Bennett PA-C ?? Date of Service: 11/26/24 ?? Procedure(s): XR ankle LT min 3V ?? Accession Number(s): [id number] ? cc: Diann Ramirez MD; Anna Bennett [...] DD/ 1103 ? TD/TT: 11/26/24 1112 ? Surgical Physician Assistant: ? Procedure Note Enricoter, Image - 11/26/2024 [facility] [address] [place] [address] [address] [place] [address] XRay Report Signed Patient: Luc Erickson JMR#: [id number] [birth year] : 1980Acct:[id number] Age/Sex: 44 / MADM Date: 11/26/24 Loc: IAN Attending Dr: Misha VELASQUEZ Ordering Physician: Anna Bennett PA-C Date of Service: 11/26/24 Procedure(s): XR ankle LT min 3V Accession Number(s): [id number] cc: Diann Ramirez MD; Anna Bennett PA-C [...] 11/26/24 1133 DD/ 1103 TD/TT: 11/26/24 1112 Surgical Physician Assistant: [facility] External Provider IMG XR PROCEDURES Final Result * FL Guidance in OR (11/24/2024 2:38 PM EST) Anatomical Region Laterality Modality X-Ray Angiograph y 11/24/2024 2:38 PM EST Narrative 11/25/2024 8:58 AM EST ? [facility] ?[address] ?[place] [address] ? Fluoroscopy Report ? Signed ? Patient: Stopa,Luc J ?MR#: [id number] ?? [birth year] ? : 1980 ?Acct:[id number] ? Age/Sex: 44 / M ?ADM Date: 11/24/24 ? Loc: HO.SSS ? Attending Dr: Will Randolph MD ? Ordering Physician: Will Randolph MD ?? Date of Service: 11/24/24 ?? Procedure(s): FL guidance in OR ?? Accession Number(s): [id number] ? cc: Diann Ramirez MD; Will Randolph [...] DD/ 1438 ? TD/TT: 11/24/24 1527 ? Surgical Physician Assistant: ? Procedure Note Colt Avendaño - 11/25/[address] [address] Fluoroscopy Report Signed Patient: Luc Erickson JMR#: [id number] [birth year] : 1980Acct:[id number] Age/Sex: 44 / MADM Date: 11/24/24 Loc: HO.SSS Attending Dr: Will Randolph MD Ordering Physician: Will Randolph MD Date of Service: 11/24/24 Procedure(s): FL guidance in OR Accession Number(s): [id number] cc: Diann Ramirez MD; Will Randolph MD [...] 11/25/24 0856 DD/ 1438 TD/TT: 11/24/24 1527 Surgical Physician Assistant: [facility] External Provider IMG IR PROCEDURES Final Result * XR Tibia Fibula 2 Views Left (11/11/2024 10:45 AM EST) Anatomical Region Laterality Modality Lower Extremities, Lower Leg Left Rad iographic Imaging 11/11/2024 10:4 5 AM EST Narrative 11/11/2024 11:32 AM EST ? [facility] ?[address] ?[place] [address] ?XRay Report ? Signed ? Patient: Stopa,Luc J ?MR#: [id number] ?? 78 ? : 1980 ?Acct:[id number] ? Age/Sex: 44 / M ?ADM Date: 11/11/24 ? Loc: HO.ED ? Attending Dr: ? Ordering Physician: Generic ED Physician ?? Date of Service: 11/11/24 ?? Procedure(s): XR tibia fibula LT 2V ?? Accession Number(s): [id number] ? cc: Diann Ramirez MD; Generic ED [...] DD/ 1045 ? TD/TT: 11/11/24 1100 ? Surgical Physician Assistant: MSM ? Procedure Note Kateryna, Colt - 11/11/2024 [place] [address] XRay Report Signed Patient: Luc Erickson JMR#: [id number] [birth year] : 1980Acct:[id number] Age/Sex: 44 / MADM Date: 11/11/24 Loc: HO.ED Attending Dr: Ordering Physician: Generic ED Physician Date of Service: 11/11/24 Procedure(s): XR tibia fibula LT 2V Accession Number(s): [id number] cc: Diann Ramirez MD; Generic ED Physician [...] 11/11/24 1129 DD/ 1045 TD/TT: 11/11/24 1100 Surgical Physician Assistant: FEMI [facility] External Provider IMG XR PROCEDURES Final Result * (ABNORMAL) Lipid Panel, Standard (03/11/2024 1:07 PM EDT) Triglycerides 40 <150 mg/dL [facility] Comment:Desirable Triglyceri de: less than 150 mg/dLBorderline High Triglyceride 150-199 mg/dLHigh Triglyceride: 200-499 mg/dLVery High Triglyceride: greater than or equal to 5OO mg/dL Cholesterol 141 <200 mg/dL [facility] Comment:Desirable Cholestero l: less than 200 mg/dLBorderline High Cholesterol: 200-239 mg/dLHigh Cholesterol: greater than 239 mg/dL LDL Cholesterol Calculated 93 <100 mg/dL [facility] Comment:Desirable LDL: less than 100 mg/dLNear Optimal/Above Optimal LDL: 110- 129 mg/dLBorderline High LDL: 130-159 mg/dLHigh LDL: 160-189 mg/dLVery High LDL: greater than or equal to 190 mg/dL HDL Cholesterol 40(L) >40 mg/dL [facility] Comment:Desirable HDL: great er than 40 mg/dL Note: This HDL assay may give artificially low results in patients with liver disease. Blood Venous blood specimen / Unknown 03/11/2024 1:07 PM EDT 03/11/2024 2:22 PM EDT Diann Ramirez MD LAB BLOOD ORDERABLES Final Result [facility] [address] [place] [phone] * HIV AB/AG (08/07/2022 2:03 PM EDT) Pathologist [facility] HIV AB/AG Nonreactive Nonreactive [facility] Comment: HIV-1 p24 Ag [...] of this assay. ?? The Cha Freelance Director HIV Ag/Ab Combo assay result and supplemental assay results should be interpreted in conjunction with the patient's clinical presentation, history and other laboratory results. ??If the results are inconsistent with clinical evidence, additional testing is suggested to confirm the result. 08/07/2022 2:03 PM EDT Tra Linton MD HISTORICAL/NON ORDERAB LABS Final Result Performing Organization Address City/[facility] Co de Phone Number [facility] * HEPATITIS C AB W/REFL TO HCV RNA, QN, PCR (07/01/2022 10:13 AM EDT) Pathologist [facility] HEPATITIS C ANTIBODY NON-REACT JESSEE NON-REACT JESSEE [facility] INDEX 0.14 <1.00 [facility] Comment: ?? HCV antibody was non-reactive. There is no laboratory ?? evidence of HCV infection. ?? In most cases, no further action is required. However, if recent HCV exposure is suspected, a test for HCV RNA (test code 96893) is suggested. ?? For additional information please refer to http://education.[employer].Otonomy/faq/DLA14k6 (This link is being provided for informational/ educational purposes only.) ?? 07/01/2022 10:1 3 AM EDT us Diann Ramirez MD HISTORICAL/NON ORDERABLE LA BS Final Result Performing Organization Address City/[facility]/ZIP Co de Phone Number [facility] [address] [place] [address], from Last 3 Months or Most Recently Relevant to Health Maintenance Insurance [facility] C3 Care Teams Risk Control Officer Relationship Specialty Start Date End Date Diann Ramirez MD [address] [facility] [place] [address] PCP - General Internal Medicine 07/16/12
--- OUTSIDE RECORDS SUMMARY | 2025-02-08 12:42 | XMS_ITS | Clinical Summary ---
Author Organization [facility] Address [address] [place] [address] Phone Care Team Providers Care Power Chisel Operator Name Role Phone Physician, Pcp Unknown Primary Care Provider Alejandra vailable Allergies No known active allergies Encounters Date Type Department Care Team Description 12/09/2024 2:50 PM EST - 12/09/2024 7:00 PM EST Emergency [facility] Emergency [address] [place] [address] Edinson Hernandez, Leg swelling (Primary [...] Maintenance Due Date Last Done Comments Hepatitis A Vaccines (1 of 2 - Risk 2-dose series) 1999 Hepatitis B Vaccines (1 of 3 - 19+ 3-dose series) 1999 HIV Screening 09/22/2022 Hepatitis C Screening 09/22/2022 Social Influencers of Health Screening 09/22/2022 COVID-19 Vaccine (1 - 2023-2 5 season) 2024 Hypertension/CHF/CAD Annual BMP Blood Test 12/09/2024 Depression Screening 03/20/2025 03/20/2024 Influenza Vaccine (Season Ended) 2025 DTaP,Tdap,and Td Vaccines (2 - Td or [...] age to complete this topic Meningococcal B Vaccine Aged Out No l onger eligible based on patient's age to complete [...] Insurance MEDICAID - [place] Care Teams Power Chisel Operator Relationship Specialty Start Date End Date Physician, Pcp Unknown PCP - General 12/09/24
--- OUTSIDE RECORDS SUMMARY | 2025-02-08 12:42 | XMS_ITS | Encounter Summary ---
Author Organization [employer] Address [address] [facility] 7 [place] [address] Care Team Providers Care Clinical Support Specialist Name Role Phone Diann Ramirez MD Primary Care Provider +1 [phone] Reason for Visit * Reason Onset Date Comments Med Refill 11/25/2022 Encounter Details Date Type Department Care Team (Late st Contact Info) Description 11/25/2022 Telephone [facility] MEDICINE [address] [place] [address] Diann Ramirez MD [address] [place] [address] Med Refill Social History Tobacco Use Types [...] Info) Description 03/21/2025 1:30 PM EDT Telemedicine [facility] MED & PEDS [address] [place] [address] Naomi Reyes, TABATHA [address] [place] [address] documented as of this encounter Visit Diagnoses Not on filedocumented in this encounter Additional Health Concerns Assessment Noted Time PHQ-9 Depression Total Score: 1 10/31/19 23 3:59 PM EST documented as of this encounter Care Teams Clinical Support Specialist Relationship Specialty Start Date End Date Diann Ramirez MD [address] [place] [address] PCP - General Internal Medicine 07/16/12 documented as of this encounter
--- OUTSIDE RECORDS SUMMARY | 2025-02-08 12:42 | XMS_ITS | Encounter Summary ---
Author Organization [employer] Address [address] [facility] 7 [place] [address] Care Team Providers Care Director Child Abuse Therapy Name Role Phone Diann Ramirez MD Primary Care Provider [phone] [phone] Reason for Visit * Reason Onset Date Comments Referral 11/21/2022 Encounter Details Date Type Department Care Team (Late st Contact Info) Description 11/21/2022 Telephone [facility] MEDICINE [address] [place] [address] Diann Ramirez MD [address] [place] [address] Referral Social History Tobacco Use Types Packs/Day [...] by Dr Linton Please contact pt at [phone] Please see above message. Thanks * Telephone Encounter - Mario Saldivar - 11/21/2022 2:42 PM EST Tc from pt requesting a new referral for neurologist states don't want to be seen by Dr Lintno Please contact pt at [phone] documented in this encounter Plan of Treatment Upcoming Encounters Date Type Department Care Team ([facility] st Contact Info) Description 03/21/2025 1:30 PM EDT Telemedicine [facility] MED & PEDS [address] [place] [address] Naomi Reyes RN [address] [place] [address] documented as of this encounter Visit Diagnoses Diagnosis Chronic cluster headache, not intractable- Primary documented in this encounter Additional Health Concerns Assessment Noted Time PHQ-9 Depression Total Score: 1 10/31/19 23 3:59 PM EST documented as of this encounter Care Teams Director Child Abuse Therapy Relationship Specialty Start Date End Date Diann Ramirez MD [address] [place] [address] PCP - General Internal Medicine 07/16/12 documented as of this encounter
--- OUTSIDE RECORDS SUMMARY | 2025-02-08 12:42 | XMS_ITS | Encounter Summary ---
Author Organization [employer] Address [address] [facility] 7 [place] [address] Care Team Providers Care Loss Mitigation Specialist Name Role Phone Diann Ramirez MD Primary Care Provider [phone] Reason for Visit * Reason Onset Date Comments Appointment Request 01/13/2024 Encounter Details Date Type Department Care Team (Late st Contact Info) Description 01/13/2024 Telephone [facility] MEDICINE [address] [place] [address] Diann Ramirez MD [address] [place] [address] Appointment Request Social History Tobacco Use Types [...] Info) Description 03/21/2025 1:30 PM EDT Telemedicine [facility] MED & PEDS [address] [place] [address] Naomi Reyes, TABATHA [address] [place] [address] documented as of this encounter Visit Diagnoses Not on filedocumented in this encounter Additional Health Concerns Assessment Noted Time PHQ-9 Depression Total Score: 1 10/31/19 23 3:59 PM EST documented as of this encounter Care Teams Loss Mitigation Specialist Relationship Specialty Start Date End Date Diann Ramirez MD [address] [place] [address] PCP - General Internal Medicine 07/16/12 documented as of this encounter
--- OUTSIDE RECORDS SUMMARY | 2025-02-08 12:42 | XMS_ITS | Encounter Summary ---
Author Organization [employer] Address [address] [facility] 7 [place] [address] Care Team Providers Care Telemarketing Fundraiser Name Role Phone Diann Ramirez MD Primary Care Provider [phone] Reason for Visit * Reason Onset Date Comments Appointment Request 06/17/2024 Encounter Details Date Type Department Care Team ([facility] st Contact Info) Description 06/17/2024 Telephone [facility] MEDICINE [address] [place] [address] Diann Ramirez MD [address] [place] [address] Appointment Request Social History Tobacco Use Types [...] would like a sooner appt than what account underwriter offered documented in this encounter Plan of Treatment Upcoming Encounters Date Type Department Care Team (Late st Contact Info) Description 03/21/2025 1:30 PM EDT Telemedicine [facility] MED & PEDS [address] [place] [address] Naomi Reyes, TABATHA [address] [place] [address] documented as of this encounter Visit Diagnoses Not on filedocumented in this encounter Additional Health Concerns Assessment Noted Time PHQ-9 Depression Total Score: 4 03/20/20 24 9:12 AM EDT documented as of this encounter Care Teams Telemarketing Fundraiser Relationship Specialty Start Date End Date Diann Ramirez MD [address] [place] [address] PCP - General Internal Medicine 07/16/12 documented as of this encounter
--- OUTSIDE RECORDS SUMMARY | 2025-02-08 12:42 | XMS_ITS | Encounter Summary ---
Author Organization [email or web address] Address [address] [facility] 7 [place] [address] Care Team Providers Care Solution Sales Senior Executive Name Role Phone Diann Ramirez MD Primary Care Provider [phone] Reason for Visit * Reason Onset Date Comments Appointment Request 06/11/2024 Encounter Details Date Type Department Care Team ([facility] st Contact Info) Description 06/11/2024 Telephone [facility] MEDICINE [address] [place] [address] Diann Ramirez MD [address] [place] [address] Appointment Request Social History Tobacco Use Types [...] Tc from pt calling in regards to PSYCHIATRIST visit from 06/18 that was canceled and is requesting to reschedule. Please contact pt at [phone]. documented in this encounter Plan of Treatment Upcoming Encounters Date Type Department Care Team (Late st Contact Info) Description 03/21/2025 1:30 PM EDT Telemedicine [facility] MED & PEDS [address] [place] [address] Naomi Reyes RN [address] [place] [address] documented as of this encounter Visit Diagnoses Not on filedocumented in this encounter Additional Health Concerns Assessment Noted Time PHQ-9 Depression Total Score: 4 03/20/20 24 9:12 AM EDT documented as of this encounter Care Teams Solution Sales Senior Executive Relationship Specialty Start Date End Date Diann Ramirez MD [address] [place] [address] PCP - General Internal Medicine 07/16/12 documented as of this encounter
--- OUTSIDE RECORDS SUMMARY | 2025-02-08 12:42 | XMS_ITS | Encounter Summary ---
Author Organization [employer] Address [address] [facility] 7 [place] [address] Care Team Providers Care Team Facilitator Name Role Phone Diann Ramirez MD Primary Care Provider [phone] Reason for Visit * Reason Onset Date Comments Referral 08/09/2024 Encounter Details Date Type Department Care Team (Late st Contact Info) Description 08/09/2024 Telephone [facility] MEDICINE [address] [place] [address] Diann Ramirez MD [address] [place], [place] [phone] Referral Social History Tobacco Use Types Packs/Day [...] Jimenez RN - 08/14/2024 12:07 PM EDT [employer] message informing pt referral for Neuro was sent to [facility] and pt should get a call [...] Info) Description 03/21/2025 1:30 PM EDT Telemedicine [facility] MED & PEDS [address] [place] [address] Naomi Reyes RN [address] [place] [address] documented as of this encounter Visit Diagnoses Not on filedocumented in this encounter Additional Health Concerns Assessment Noted Time PHQ-9 Depression Total Score: 4 03/20/20 24 9:12 AM EDT documented as of this encounter Care Teams Team Facilitator Relationship Specialty Start Date End Date Diann Ramirez MD [address] [place] [address] PCP - General Internal Medicine 07/16/12 documented as of this encounter
--- OUTSIDE RECORDS SUMMARY | 2025-02-08 12:42 | XMS_ITS | Encounter Summary ---
Author Organization [employer] Address [address] [facility] 7 [place] [address] Care Team Providers Care Lining Cutter Name Role Phone Diann Ramirez MD Primary Care Provider [phone] Reason for Visit * Reason Onset Date Comments Med Refill 07/28/2024 Encounter Details Date Type Department Care Team (Late st Contact Info) Description 07/28/2024 Telephone [facility] MEDICINE [address] [place] [address] Diann Ramirez MD [address] [place], [place] [phone] Med Refill Social History Tobacco Use Types [...] 1 MG tablet To be sent to: [id number] - [place] - [address] [facility] & [facility] documented in this encounter Plan of Treatment Upcoming Encounters Date Type Department Care Team (Late st Contact Info) Description 03/21/2025 1:30 PM EDT Telemedicine [facility] MED & PEDS [address] [place] [address] Naomi Reyes, TABATHA [address] [place] [address] documented as of this encounter Visit Diagnoses Not on filedocumented in this encounter Additional Health Concerns Assessment Noted Time PHQ-9 Depression Total Score: 4 03/20/20 24 9:12 AM EDT documented as of this encounter Care Teams Lining Cutter Relationship Specialty Start Date End Date Diann Ramirez MD [address] [place] [address] PCP - General Internal Medicine 07/16/12 documented as of this encounter
--- OUTSIDE RECORDS SUMMARY | 2025-02-08 12:42 | XMS_ITS | Encounter Summary ---
Author Organization [employer] Address [address] [facility] 7[address] [place] [address] Care Team Providers Care Car Bracer Name Role Phone Diann Ramirez MD Primary Care Provider [phone] Encounter Details Date Type Department Care Team (Late st Contact Info) Description 05/18/2024 Orders Only [facility] MED & PEDS [address] [place], [place] [phone] Provider, MD Shar Social History Tobacco Use [...] Upcoming Encounters Date Type Department Care Team ([facility] st Contact Info) Description 03/21/2025 1:30 PM EDT Telemedicine [facility] MED & PEDS [address] [place] [address] Naomi Reyes RN [address] [place] [address] documented as of this encounter Procedures Procedure [...] documented as of this encounter Care Teams Car Bracer Relationship Specialty Start Date End Date Diann Ramirez MD [address] [place] [address] PCP - General Internal Medicine 07/16/12 documented as of this encounter
--- OUTSIDE RECORDS SUMMARY | 2025-02-08 12:42 | XMS_ITS | Encounter Summary ---
Author Organization [employer] Address [address] [place] [address] [address] [place] [address] Care Team Providers Care Admissions Consultant Name Role Phone Diann Ramirez MD Primary Care Provider [phone] Reason for Referral * Consultation (Routine) - Closed Specialty Diagnoses / Procedures Referred By Dania blackman Referred To Contact Hematology and Oncology Diagnoses Microcytic anemia Bicytopenia Diann Ramirez MD [address] [place] [address] Phone: tel: fax: Cornell Culver MD [address] [place] [address] Phone: tel: fax: Referral ID Status Reason Start Date Expiration Date V isits Requested Visits Authorized [id number] Closed Specialty Services Required 03/16/2024 03/16/2025 1 1 * Imaging (Routine) - Closed Specialty Diagnoses / Procedures Referred By Contcary t Referred To Contact Diagnoses Numbness of right foot Numbness of left foot Procedures EMG Diann Ramirez MD [address] [place] [address] Phone: tel: fax: [address] Phone: tel: fax: Referral ID Status Reason Start Date Expiration Date Visits Re quested Visits Authorized [id number] Closed 03/16/2024 03/16/2025 1 1 Encounter Details Date Type Department Care Team (Late Contact Info) Description 03/12/2024 Orders Only [facility] [address] [place] [address] Diann Ramirez MD [address] [place] [address] Microcytic anemia (Primary Dx); Vitamin D deficiency; [...] Info) Description 03/21/2025 1:30 PM EDT Telemedicine [facility] [address] [place] [address] Naomi Reyes, RN [address] [place] [address] Scheduled Orders Name Type Priority Associated Diagnoses [...] EDT Narrative 03/24/2024 3:35 PM EDT ? [facility] ?[address] ?[place] [address] ? CT Scan Report ? Signed ? Patient: Stopa,Luc J ?MR#: [id number] ?? 78 ? : 1980 ?Acct:[id number] ? Age/Sex: 43 / M ?ADM Date: 03/24/24 ? Loc: HO.ED ? Attending Dr: ? Ordering Physician: Phani Gamino DO ?? Date of Service: 03/24/24 ?? Procedure(s): CT head/brain wo IV con ?? Accession Number(s): [id number] ? cc: Dainn Ramirez MD; Phani Gamino DO ? EXAMINATION: [...] No acute intracranial pathology. ? Dictated By: ?Geri,Hiram LALA ? Signed By: ?<Electronically signed by Hiram Nevarez MD in OV> ?// 1531 ? DD/DT: // 1423 ? TD/TT: ? Social Media Marketing Analyst: BA ? Procedure Note Donotuseinterpreter, Image - 03/24/[address] [address] [address] Scan Report Signed Patient: Luc Erickson JMR#: [id number] [birth year] : 1980Acct:[id number] Age/Sex: 43 / MADM Date: 03/24/24 Loc: HO.ED Attending Dr: Ordering Physician: Phani Gamino DO Date of Service: 03/24/24 Procedure(s): CT head/brain wo IV con Accession Number(s): [id number] cc: Diann Ramirez MD; Phani Gamino DO [...] in OV> 03/24/24 1531 DD/ 1423 TD/TT: Social Media Marketing Analyst: CARMEN [facility] External Provider IMG CT PROCEDURES Final Result * XR Chest 2 Views (03/24/2024 2:00 PM EDT) Anatomical Region Laterality Modality Chest Radiographic Lacey ging 03/24/2024 2:00 PM EDT Narrative 03/24/2024 3:11 PM EDT ? [facility] ?[address] ?[place] [address] ?XRay Report ? Signed ? Patient: Stopa,Luc J ?MR#: [id number] ?? 78 ? : 1980 ?Acct:[id number] ? Age/Sex: 43 / M ?ADM Date: 03/24/24 ? Loc: HO.ED ? Attending Dr: ? Ordering Physician: Phani Gamino DO ?? Date of Service: 03/24/24 ?? Procedure(s): XR chest 2V ?? Accession Number(s): [id number] ? cc: Diann Ramirez MD; Phani Gamino [...] 1507 ? DD/ 1400 ? TD/TT: ? Social Media Marketing Analyst: ? Procedure Note Colt Avendaño - 03/24/[address] [address] XRay Report Signed Patient: Luc Erickson JMR#: [id number] [birth year] : 1980Acct:[id number] Age/Sex: 43 / MADM Date: 03/24/24 Loc: HO.ED Attending Dr: Ordering Physician: Phani Gamino DO Date of Service: 06/05/24 Procedure(s): XR chest 2V Accession Number(s): [id number] cc: Diann Ramirez MD; Phani Gamino DO [...] in OV> 03/24/24 1507 DD/ 1400 TD/TT: Social Media Marketing Analyst: [facility] External Provider IMG XR PROCEDURES Final Result * Tick-borne Disease, Acute Molecular Panel (03/24/2024 12:15 PM EDT) Babesia microti DNA, Real Time PCR NOT DETECTED NOT DETECTED [facility] Comment:This test was French[employer]belo ped and its analytical performancecharacteristics have been determined by [employer]. It has not been cleared or approved by theFDA. This assay has been validated pursuant to the CLIAregulations and is used for clinical purposes.THIS TEST WAS PERFORMED AT:[facility] [place] [phone] MEMBRENO MD Ehrlichia chaffensis DNA Real Time PCR NOT DETECTED NOT DETECTED [facility] Comment:This test was develo ped and its analytical performancecharacteristics have been determined by [employer]. It has not been cleared or approved by theFDA. This assay has been validated pursuant to the CLIAregulations and is used for clinical purposes.THIS TEST WAS PERFORMED AT:[facility] [place] [phone] MEMBRENO MD Anaplasma phagocytophilum DNA, QL Real Time PCR NOT DETECTED NOT DETECTED [facility] Comment:This test was develo ped and its analytical performancecharacteristics have been determined by [employer]. It has not been cleared or approved by theFDA. This assay has been validated pursuant to the CLIAregulations and is used for clinical purposes. Borrelia Species DNA, Ql Real Time PCR NOT DETECTED NOT DETECTED [facility] Comment:This test was develo ped and its analytical performancecharacteristics have been determined by [employer]. It has not been cleared or approved by theFDA. This assay has been validated pursuant to the CLIAregulations and is used for clinical purposes.For additional information, please refer totps://education.[employer]/faq/rnk806(This link is being provided for informational/educational purposes only.)THIS TEST WAS PERFORMED AT:[facility] [address] [phone] MEMBRENO MD Borrelia Miyamotoi DNA, Ql Real Time PCR NOT DETECTED NOT DETECTED [facility] Comment:This test detects bu t does not distinguish betweenB. miyamotoi and B. hermsii.This test was developed and its analytical performancecharacteristics have been determined by [employer]. It has not been cleared or approved by theFDA. This assay has been validated pursuant to the CLIAregulations and is used for clinical purposes.THIS TEST WAS PERFORMED AT:[facility] [address] [phone] MEMBRENO MD Comment SEE NOTE [facility] Comment:A negative result do es not exclude Borrelia infectionas the concentration of the organism in blood may be lowor non-existent in patients with Lyme disease, and maydepend on timing of specimen collection from onset ofsymptoms. Clinical correlation is recommended andadditional studies such as serologic testing may beindicated.THIS TEST WAS PERFORMED AT:[facility] [address] [phone] MEMBRENO MD 03/24/2024 12:1 5 PM EDT 03/24/2024 12:19 PM EDT us Generic External Data Provider LAB BLOOD ORDERAB LES Final Result [facility] [address] [place] [address] [phone] * Slide Review (03/24/2024 12:15 PM EDT) Slide Review VERIFIED [facility] 03/24/2024 12:1 5 PM EDT 03/24/2024 12:19 PM EDT us Generic External Data Provider LAB BLOOD ORDERAB LES Final Result Performing Organization Address [facility] Co de Phone Number [facility] [address] [place] [address] [phone] * (ABNORMAL) CBC auto differential (03/24/2024 12:15 PM EDT) White Blood Count 8.3 4.8 - 10.8 X10*3/uL [facility] Red Blood Count 4.86 4.60 - 5.80 X10*6/uL [facility] Hemoglobin 14.0 14.0 - 18.0 g/dl [facility] Hematocrit 41.0(L) 42.0 - 52.0 % [facility] Mean Corpuscular Volume 84.4 80.0 - 98.0 fL [facility] Mean Corpuscular Hemoglobin 28.8 27.0 - 33.0 pg [facility] Mean Corpuscular HGB Conc 34.1 31.0 - 36.0 g/dl [facility] Red Cell Distribution Width 12.2 11.0 - 16.0 % [facility] Platelet Count 122(L) 160 - 400 X10*3/uL [facility] Comment:Confirmed by smear. Mean Platelet Volume 10.8 9.4 - 12.4 fL [facility] Neutrophils Percent Auto 62.4 45 - 73 % [facility] Imm Gran Pct Auto 0.7(H) 0.0 - 0.4 % [facility] Lymphocytes Percent Auto 27.4 20 - 40 % [facility] Monocytes Percent Auto 5.6 2 - 11 % [facility] Eosinophils Percent Auto 3.3 0 - 4 % [facility] Basophils Percent Auto 0.6 0 - 2 % [facility] NRBC Pct Auto 0.0 0.0 - 0.2 /100WBC [facility] Neutrophils Absolute Auto 5.2 2.0 - 8.3 x10*3/uL [facility] Imm Gran Abs Auto 0.06(H) 0.00 - 0.03 X10*3/uL [facility] Lymphocytes Absolute Auto 2.3 1.2 - 4.9 X10*3/uL [facility] Monocytes Absolute Auto 0.5 0.1 - 1.2 X10*3/uL [facility] Eosinophils Absolute Auto 0.3 0.0 - 0.4 X10*3/uL [facility] Basophils Absolute Auto 0.1 0.0 - 0.2 X10*3/uL [facility] NRBC Abs Auto 0.000 0.0 - 0.012 X10*3/uL [facility] 03/24/2024 12:1 5 PM EDT 03/24/2024 12:19 PM EDT us Generic External Data Provider LAB BLOOD ORDERAB LES Edited Result - Final Performing Organization Address City/[facility]/ZIP Co de Phone Number [facility] [address] [place] [phone] * TSH with Reflex to Free T4 (03/24/2024 12:15 PM EDT) TSH reflex Free T4 1.53 0.32 - 4.0 uIU/mL [facility] 03/24/2024 12:1 5 PM EDT 03/24/2024 12:19 PM EDT us Generic External Data Provider LAB BLOOD ORDERAB LES Final Result [facility] [address] [place] [address] [phone] * Ferritin (03/24/2024 12:15 PM EDT) Ferritin 109 20 - 250 ng/mL [facility] 03/24/2024 12:1 5 PM EDT 03/24/2024 12:19 PM EDT us Generic External Data Provider LAB BLOOD ORDERAB LES Final Result Performing Organization Address [facility] de Phone Number [facility] [address] [place] [phone] * High Sensitivity Troponin I (03/24/2024 12:15 PM EDT) [facility] TROPONIN I HIGH SENSITIVITY <2.7 <3.5 - 35.0 ng/L [facility] Comment:The Cha high sens itivity Troponin-I results should beused in conjunction with other diagnostic information suchas ECG, clinical observations and information, and patientsymptoms to aid in the diagnosis of KS. 03/24/2024 12:1 5 PM EDT 03/24/2024 12:19 PM EDT us Generic External Data Provider LAB BLOOD ORDERAB LES Final Result Performing Organization Address [facility] Phone Number [facility] [address] [place] [phone] * Magnesium (03/24/2024 12:15 PM EDT) Pathologist [facility] Magnesium 1.9 1.6 - 2.6 mg/dL [facility] 03/24/2024 12:1 5 PM EDT 03/24/2024 12:19 PM EDT us Generic External Data Provider LAB BLOOD ORDERAB LES Final Result Performing Organization Address [facility] Co de Phone Number [facility] [address] [place] [phone] * (ABNORMAL) Comprehensive Metabolic Panel (03/24/2024 12:15 PM EDT) Sodium 140 135 - 145 mmol/L [facility] Potassium 3.6 3.3 - 5.1 mmol/L [facility] Chloride 106 96 - 108 mmol/L [facility] Carbon Dioxide 27 22 - 29 mmol/L [facility] Anion Gap 11(L) 12 - 20 [facility] Urea Nitrogen (BUN) 8(L) 9 - 16 mg/dL [facility] Creatinine, Serum 0.84 0.5 - 1.4 mg/dL [facility] Creatinine Clr Calc Pharmacy 145.2 [facility] Comment:eGFR (calculated fro m the MDRD study equation) and eCrCl(calculated from the Cockcroft-Gault equation) are based ondifferent parameters and may not yield comparable results.If eCrCl result is absurd, please check patient'sheight/weight. Estimated Glomerular Filt Rate >60 [facility] Comment:NOTE: For -Am erican individuals, multiply the result by 1.210.Chronic Kidney Disease: Estimated GFR < 60 mL/min/1.49r3Cbrmlx Kidney Disease: Estimated GFR < 15 mL/min/1.73m2 Glucose 113 60 - 115 mg/dL [facility] Calcium 9.3 8.4 - 10.2 mg/dL [facility] Bilirubin, Total 0.3 0.0 - 1.0 mg/dL [facility] Aspartate Amino Transferase 15 5 - 37 U/L [facility] Alanine Aminotransferase 13 0 - 40 U/L [facility] Total Protein 7.5 6.5 - 8.0 g/dL [facility] Albumin Level 4.3 3.5 - 5.0 g/dL [facility] Alkaline Phosphatase 79 39 - 117 U/L [facility] 03/24/2024 12:1 5 PM EDT 03/24/2024 12:19 PM EDT us Generic External Data Provider LAB BLOOD ORDERAB LES Final Result [facility] [address] [place] [phone] [phone] * Prothrombin Time-INR (03/24/2024 12:15 PM EDT) Pathologist [facility] Prothrombin Time 12.4 11.1 - 13.3 SEC [facility] INTERNATIONAL NORM RATIO 1.0 0.9 - 1.1 [facility] Comment:INTERNATIONAL NORMAL IZED RATIO (INR) [...] Final Result Performing Organization Address [facility] de Phone Number [facility] [address] [place] [phone] * (ABNORMAL) Reticulocyte Count (03/16/2024 11:56 AM EDT) [facility] Reticulocytes Absolute 0.127(H) 0.026 - 0.095 X10*6/uL [facility] Immature Retic Fraction 15.3(H) 2.3 - 13.4 % [facility] Retic HGB Equivalent 33.6 30.0 - 35.0 pg [facility] Reticulocyte Percent 2.8(H) 0.5 - 1.8 % [facility] Blood Venous blood specimen / Unknown 03/16/2024 11:56 AM EDT 03/16/2024 2:40 PM EDT us Diann Ramirez MD LAB BLOOD ORDERABLES Final Result Performing Organization Address [facility] Co de Phone Number [facility] [address] [place] [phone] [phone] * Ferritin (03/16/2024 11:56 AM EDT) Ferritin 118 20 - 250 ng/mL [facility] Blood Venous blood specimen / Unknown 03/16/2024 11:56 AM EDT 03/16/2024 2:42 PM EDT us Diann Ramirez MD LAB BLOOD ORDERABLES Final Result Performing Organization Address [facility] de Phone Number [facility] [address] [place] [phone] * Iron And Total Iron Binding Capacity (03/16/2024 11:56 AM EDT) Iron 55 45 - 160 mcg/dL [facility] Total Iron Binding Capacity 261 228 - 428 mcg/dL [facility] Percent Iron Saturation 21 15 - 50 % [facility] Unsaturated Iron Binding 206 ug/dL [facility] Blood Venous blood specimen / Unknown 03/16/2024 11:56 AM EDT 03/16/2024 2:42 PM EDT us Diann Ramirez MD LAB BLOOD ORDERABLES Final Result Performing Organization Address [facility] Co de Phone Number [facility] [address] [place] [phone] documented in this encounter Visit Diagnoses Diagnosis Microcytic anemia- Primary Unspecified iron deficiency anemia Vitamin D deficiency Primary hypertension Unspecified essential hypertension Numbness of right foot Numbness of left foot Bicytopenia documented in this encounter Additional Health Concerns Assessment Noted Time PHQ-9 Depression Total Score: 1 10/31/19 23 3:59 PM EST documented as of this encounter Care Teams Admissions Consultant Relationship Specialty Start Date End Date Diann Ramirez MD [address] [place] [phone] PCP - General Internal Medicine 07/16/12 documented as of this encounter
--- OUTSIDE RECORDS SUMMARY | 2025-02-08 12:42 | XMS_ITS | Encounter Summary ---
Author Organization [employer] Address [address] [place] [address] 7 [place] [address] Care Team Providers Care Director Of Vital Statistics Name Role Phone Diann Ramirez MD Primary Care Provider [phone] Reason for Referral * Consultation (Routine) - Closed Specialty Diagnoses / Procedures Referred By Contcary t Referred To Contact Behavioral Health Diagnoses Anxiety Diann Ramirez MD [address] [place] [address] Phone: tel: fax: Referral ID Status Reason Start Date Expiration Date V isits Requested Visits Authorized [id number] Closed Specialty Services Required 03/30/2024 03/30/2025 1 1 Encounter Details Date Type Department Care Team ([facility] Contact Info) Description 03/30/2024 Orders Only [facility] [address] [place] [address] Diann Ramirez MD [address] [place] [address] Anxiety (Primary Dx) Social History Tobacco Use [...] Info) Description 03/21/2025 1:30 PM EDT Telemedicine [facility] [address] [place] [address] Naomi Reyes, TABATHA [address] [place] [address] Scheduled Referrals Name Type Priority Associated Diagnoses [...] of this encounter Care Teams Director Of Vital Statistics Relationship Specialty Start Date End Date Diann Ramirez MD [address] [place] [address] PCP - General Internal Medicine 07/16/12 documented as of this encounter
--- OUTSIDE RECORDS SUMMARY | 2025-02-08 12:42 | XMS_ITS | Encounter Summary ---
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 ) documented in this encounter Plan of Treatment Upcoming Encounters Date Type Department Care Team (Late st Contact Info) Description 03/21/2025 1:30 PM EDT Telemedicine [facility] [address] [place] [address] Naomi Reyes, TABATHA [address] [place] [address] documented as of this encounter Visit Diagnoses Not on filedocumented in this encounter Additional Health Concerns Assessment Noted Time PHQ-9 Depression Total Score: 1 10/31/19 23 3:59 PM EST documented as of this encounter Care Teams Mohs Surgeon/General Dermatologist Relationship Specialty Start Date End Date Diann Ramirez MD [address] [place] [address] PCP - General Internal Medicine 07/16/12 documented as of this encounter
--- OUTSIDE RECORDS SUMMARY | 2025-02-08 12:42 | XMS_ITS | Encounter Summary ---
Author Organization [employer] Address [address] [facility] 7 [place] [address] Care Team Providers Care Insurance Account Specialist Name Role Phone Diann Ramirez MD Primary Care Provider [phone] Reason for Visit * Reason Comments Med Refill Encounter Details Date Type Department Care Team ([facility] st Contact Info) Description 01/14/2025 Refill [facility]S [address] [place], [place] [phone] Diann Ramirez MD [address] [place] [address] Social History Tobacco Use Types Packs/Day Years [...] 03/21/2025 1:30 PM EDT Telemedicine [facility] MED [facility] [address] [place] [address] Naomi Reyes RN [address] [place] [address] documented as of this encounter Visit Diagnoses Not on filedocumented in this encounter Additional Health Concerns Assessment Noted Time PHQ-9 Depression Total Score: 4 03/20/20 24 9:12 AM EDT documented as of this encounter Care Teams Insurance Account Specialist Relationship Specialty Start Date End Date Diann Ramirez MD [address] [place] [address] PCP - General Internal Medicine 07/16/12 documented as of this encounter
--- OUTSIDE RECORDS SUMMARY | 2025-02-08 12:42 | XMS_ITS | Encounter Summary ---
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 Please contact pt at [phone]. documented in this encounter Plan of Treatment Upcoming Encounters Date Type Department Care Team (Late st Contact Info) Description 03/21/2025 1:30 PM EDT Telemedicine [facility] MED [facility] [address] [place] [address] Naomi Reyes, TABATHA [address] [place] [address] documented as of this encounter Visit Diagnoses Not on filedocumented in this encounter Additional Health Concerns Assessment Noted Time PHQ-9 Depression Total Score: 4 03/20/20 24 9:12 AM EDT documented as of this encounter Care Teams Manager Therapy Relationship Specialty Start Date End Date Diann Ramirez MD [address] [place] [address] PCP - General Internal Medicine 07/16/12 documented as of this encounter
--- OUTSIDE RECORDS SUMMARY | 2025-02-08 12:42 | XMS_ITS | Encounter Summary ---
Author Organization [employer] Address 75 [facility] 7 [place] [address] Care Team Providers Care Material Damage Adjuster Name Role Phone Diann Ramirez MD Primary Care Provider [phone] Reason for Visit * Reason Onset Date Comments Nurse Triage 02/04/2025 Encounter Details Date Type Department Care Team ([facility] st Contact Info) Description 02/04/2025 Telephone [facility] CHC MED & PEDS [address] [place] [address] Diann Ramirez MD [address] [place] [address] Nurse Triage Social History Tobacco Use Types Packs/Day Years [...] encounter Miscellaneous Notes * Telephone Encounter - Leoan Guthrie RN - 02/04/2025 2:45 PM EDT Called pt. He states that he is having complications with his left ankle. Pt states he had a brokenankle 2 1/2 months ago and had ankle surgery. Pt. States that ankle swells on and off and he also has calf pain. Pain in calf is constant over the past week. I advised pt. To go to ED to get assessedbut, pt. Declines stating I just got home from PT and they don't think it is a blood clot . There is no swelling or redness in calf but, pt. States he has pain when he touches calf. Pt. Declines appt in walk in tomorrow in [facility] also. Advised that if pain worsens to go to ED. Otherwise appt. Made for 02/08/25 with PCP at 940am. Appt for 02/10/25 canceled due to pt. Can FU on HTN at visit on 02/08/25. Protocol Used: Ankle Pain (Adult) Protocol-Based Disposition: See in Office or Video Visit within 3 Days- Advised to go to ED for evaluation but declined offered [facility] walk in for 02/05/25 but, pt. Declined appt. Made for 02/08/25 at 940am with PCP. Video visit offer not recorded Positive Triage Questions: * Moderate pain (e.g., interferes with normal activities, limping) and present > 3 days * Swollen joint with no fever or redness * Patient wants to be seen * All higher-acuity triage questions were negative Care Advice Discussed: * Reassurance and Education - Ankle Pain * Use Heat After 48 Hours for Pain * Pain Medicines * Avoid Overuse * Telephone Encounter - Perri Moulton - 02/04/2025 2:11 PM EDT Symptom: Foot or Ankle Swelling Outcome: Schedule an urgent appointment (within 4 hours) or talk to a nurse or provider soon Reason: Calf pain The caller accepted this outcome. Contact pt at [phone] documented in this encounter Plan of Treatment Upcoming Encounters Date Type Department Care Team ([facility] st Contact Info) Description 03/21/2025 1:30 PM EDT Telemedicine [facility] MED & PEDS [address] [place] [address] Naomi Reyes RN [address] [place] [address] documented as of this encounter Visit Diagnoses Not on filedocumented in this encounter Additional Health Concerns Assessment Noted Time PHQ-9 Depression Total Score: 4 03/20/20 24 9:12 AM EDT documented as of this encounter Care Teams Material Damage Adjuster Relationship Specialty Start Date End Date Diann Ramirez MD [address] [place] [address] PCP - General Internal Medicine 07/16/12 documented as of this encounter
--- OUTSIDE RECORDS SUMMARY | 2025-02-08 12:42 | XMS_ITS | Encounter Summary ---
Author Organization [employer] Address 75 [facility] 7 [place] [address] Care Team Providers Care Gate Technician Name Role Phone Diann Ramirez MD Primary Care Provider [phone] Reason for Visit * Reason Onset Date Comments Medication Question 01/17/2025 Encounter Details Date Type Department Care Team ([facility] st Contact Info) Description 01/17/2025 Telephone [facility] CHC MED & PEDS [address] [place] [address] Diann Ramirez MD [address] [place] [address] Medication Question Social History Tobacco Use Types Packs/Day Years [...] * Telephone Encounter - Jw Valdez - 01/18/2025 1:07 PM EDT Tc from pt regarding prior message. Pt states that he doesn't want to take the 50 MG he said he is only gonna take the 25. Pt needs his medication he doesn't know why the 50 mg keeps being sent. Contact pt at [phone] * Telephone Encounter - Perri Moulton - 01/17/2025 9:37 AM EDT Tc from pt requesting a call back regarding atenolol (Tenormin) 50 MG tablet. Pt stated its supposed to be 25mg 90 day supply due to insurance coverage. Contact pt at [phone] documented in this encounter Plan of Treatment Upcoming Encounters Date Type Department Care Team ([facility] st Contact Info) Description 03/21/2025 1:30 PM EDT Telemedicine [facility] CHC MED & PEDS [address] [place] [address] Naomi Reyes, RN [address] [place] [address] documented as of this encounter Visit Diagnoses Not on filedocumented in this encounter Additional Health Concerns Assessment Noted Time PHQ-9 Depression Total Score: 4 03/20/20 24 9:12 AM EDT documented as of this encounter Care Teams Gate Technician Relationship Specialty Start Date End Date Diann Ramirze MD [address] [place] [id number] PCP - General Internal Medicine 07/16/12 documented as of this encounter
--- OUTSIDE RECORDS SUMMARY | 2025-02-08 12:42 | XMS_ITS | Encounter Summary ---
Author Organization [employer] Address 75 [facility] 7t [place] [address] Care Team Providers Care Cinder Block Mason Name Role Phone Diann Ramirez MD Primary Care Provider [phone] Encounter Details Date Type Department Care Team (Late st Contact Info) Description 10/01/2024 Orders Only [facility] CHC MED & PEDS [address] [place], [place] [phone] Diann Ramirez MD [address] [place] [address] Hiatal hernia (Primary Dx) Social History Tobacco [...] Description 03/21/2025 1:30 PM EDT Telemedicine [facility] MED & PEDS [address] [place] [address] Naomi Reyes RN 505 [place] [address] documented as of this encounter Visit Diagnoses Diagnosis Hiatal hernia- Primary Diaphragmatic hernia without mention of obstruction or gangrene documented in this encounter Additional Health Concerns Assessment Noted Time PHQ-9 Depression Total Score: 4 03/20/20 24 9:12 AM EDT documented as of this encounter Care Teams Cinder Block Mason Relationship Specialty Start Date End Date Diann Ramirez MD [address] [place] [address] PCP - General Internal Medicine 07/16/12 documented as of this encounter
--- OUTSIDE RECORDS SUMMARY | 2025-02-08 12:42 | XMS_ITS | Encounter Summary ---
Author Organization [employer] Address [address] [place] [address] 7 [place] [address] Care Team Providers Care Proof Machine Operator Name Role Phone Diann Ramirez MD Primary Care Provider [phone] Reason for Referral * Imaging (Routine) - Authorized Specialty Diagnoses / Procedures Referred By Contac t Referred To Contact Radiology Diagnoses Pain of left calf Procedures US DOPPLER EXT LOWER VENOUS LEFT Diann Ramirez MD [address] [place] [address] Phone: tel: fax: [address] Phone: tel: fax: Referral ID Status Reason Start Date Expiration Date V isits Requested Visits Authorized [id number] Authorized 02/08/2025 02/08/2026 1 1 Reason for Visit * Reason Comments left calf pain Chest Pain Encounter Details Date Type Department Care Team (Late st Contact Info) Description 02/08/2025 9:40 AM EDT Office Visit [facility] CHC MED & PEDS [address] [place], [place] [phone] Diann Ramirez MD [address] [place] [address] Pain of left calf (Primary Dx); Other chest pain; Hiatal hernia Social History Tobacco Use Types Packs/Day Years [...] Mass Index 35.01 02/08/2025 9:44 AM EDT documented in this encounter Progress Notes * Diann Ramirez MD - 02/08/2025 9:40 AM EDT MEGAN Erickson is a 44 y.o. male who presents for left calf pain and Chest Pain. Chest Pain Pertinent negatives include no diaphoresis. Mr Luc Erickson is status post left ankle ORIF on November 24, 2024. He is here complaining of left ankle pain and is requesting to get an MRI of his left ankle. Was recently evaluated by Ortho and according to the office visit note Mr. Luc Erickson was not using his splint according to direction. He is very anxious and reports that he is claustrophobic. Was advised nonweightbearing at that time. He is mostly concerned that there is something that was not addressed by his orthopedic surgeon. Thepain is located on the calf as well as the left ankle. No reported fever/shortness of breath. Mr Luc Erickson is also complaining of chest pain for several months exacerbated by movements and bending forward. The pain is intermittent and last few seconds. Patient Active Problem List Diagnosis Generalized anxiety disorder Obesity COVID-19 Episodic opioid dependence (CMS/HCC) Hypertension Vitamin D deficiency Thrombocytopenia (CMS/HCC) Other fatigue Sinus bradycardia Panic attacks Hiatal hernia Long-term current use of benzodiazepine Allergies Allergen Reactions Insulins Sertraline Other reaction(s): Skin lesion Current Outpatient Medications on File Prior to Visit Medication Sig Dispense Refill albuterol 108 (90 Base) MCG/ACT inhaler Inhale 2 puffs every 4 (four) hours if needed for wheezing.(Patient not taking: Reported on 10/31/2022) 18 g 0 atenolol (Tenormin) 25 MG tablet Take 1 tablet (25 mg) by mouth Once per day. 90 tablet 3 Blood Pressure kit Take by on arm route as directed 1 kit 0 Buprenorphine HCl-Naloxone HCl (Suboxone) 8-[address] 2 film by sublingual route every dayallow to dissolve slowly in mouth without chewing or swallowing cholecalciferol (Vitamin D-3) 50 MCG (2000 UT) tablet 1 tab once a day Diclofenac Sodium 1 % gel To use on the affected area 2 times a day 100 g 1 docusate sodium (Colace) 100 MG capsule Take 1 capsule by mouth if needed at bedtime. Elastic Bandages & Supports (Futuro Restoring Dress Socks[place] [facility] [place] restoring medium compression socks To wear daily prior to getting out of bed ergocalciferol (Vitamin D2) 1.25 MG (34398 UT) capsule Take 1 capsule (1.25 mg) by mouth 1 (one) time per week. 12 capsule 0 fexofenadine (Susana) 180 MG tablet Take 1 tablet (180 mg) by mouth if needed each day (Allergies). 30 tablet 1 FLUoxetine (PROzac) 10 MG capsule take 1 capsule by oral route every day hydroCHLOROthiazide (HYDRODiuril) 12.5 MG tablet Take 1 tablet (12.5 mg) by mouth in the morning. 30 tablet 11 hydrocortisone 1 % lotion Apply topically 2 times daily. 113 g 1 hydrOXYzine pamoate (Vistaril) 50 MG capsule Take 1 capsule by oral route every day as needed. hydrOXYzine pamoate (Vistaril) 50 MG capsule Take 1 capsule (50 mg) by mouth 3 times daily. 90 capsule 3 ibuprofen 600 MG tablet take 1 tablet by oral route once a day as needed. LORazepam (Ativan) 1 MG tablet TAKE 1 TABLET(1 MG) BY MOUTH EVERY 6 HOURS. 120 tablet 0 Omeprazole 20 MG tablet delayed-release Take 1 tablet (20 mg) by mouth Once per day. 30 tablet 1 Simethicone (Gas-Ex) 125 MG tablet tablet Take 1 tablet (125 mg) by mouth every 6 (six) hours if needed (Bloating). 120 tablet 1 No current facility-administered medications on file prior to visit. Review of Systems Constitutional: Negative for appetite change, chills and diaphoresis. Eyes: Negative for photophobia and redness. Cardiovascular: Positive for chest pain. Skin: Negative for pallor and rash. Left ankle and left calf pain OBJECTIVE Vitals: 02/08/25 0944 BP: (!) 149/78 BP Location: Right arm Patient Position: Sitting BP Cuff Size: Adult long Pulse: 61 Resp: 20 Temp: 97.8 ??F (36.6 ??C) TempSrc: Oral SpO2: 97% Weight: 251 lb (114 kg) Height: 5' 11 (1.803 m) Physical Exam Constitutional: General: He is not in acute distress. Appearance: Normal appearance. He is not ill-appearing, toxic-appearing or diaphoretic. Cardiovascular: Rate and Rhythm: Normal rate. Pulmonary: Effort: Pulmonary effort is normal. Musculoskeletal: Comments: 1)Tenderness to palpation of the left upper anterior chest. No swelling/redness. 2)No swelling/redness at inspection of the left calf and left ankle. Normal flexion and extension of the left ankle. No tenderness to palpation of the left calf. Homans signs are negative. Neurological: Mental Status: He is alert. Psychiatric: Mood and Affect: Mood is anxious. Assessment/Plan Assessment/Plan Diagnoses and all orders for this visit: Pain of left calf Comments: Doppler ultrasound ordered to rule out deep venous thrombosis Patient will be contacted with results. Orders: - US DOPPLER EXT LOWER VENOUS LEFT; Future - meloxicam (Mobic) 15 MG tablet; Take 1 tablet (15 mg) by mouth Once per day. - meloxicam (Mobic) 15 MG tablet; Take 1 tablet (15 mg) by mouth Once per day. Other chest pain Comments: Most likely costochondritis Patient will be contacted with the results of the workup Made aware to take the meloxicam daily with food and to protect the stomach with the omeprazole prescribed. Orders: - XR Chest 2 Views; Future - meloxicam (Mobic) 15 MG tablet; Take 1 tablet (15 mg) by mouth Once per day. - ECG 12 lead - meloxicam (Mobic) 15 MG tablet; Take 1 tablet (15 mg) by mouth Once per day. Hiatal hernia - Omeprazole 20 MG tablet delayed-release; Take 1 tablet (20 mg) by mouth Once per day. documented in this encounter Plan of Treatment Upcoming Encounters Date Type Department Care Team ([facility] st Contact Info) Description 03/21/2025 1:30 PM EDT Telemedicine [facility] MED & PEDS [address] [place] [address] Naomi Reyes, RN [address] [place] [address] Scheduled Orders Name Type Priority Associated Diagnoses Orde r Schedule US DOPPLER EXT LOWER VENOUS LEFT Imaging Routine Pain of left calf Expected: 02/08/2025, Expires: 02/08/2026 XR Chest 2 Views Imaging Routine Other chest pain Expected: 02/08/2025, Expires: 02/08/2026 documented as of this encounter Procedures Procedure Name Priority Date/Time Associated Diagnosis Comments ECG 12-LEAD Routine 02/08/2025 11:16 AM EDT Other chest pain documented in this encounter Results * ECG 12 lead (02/08/2025 11:16 AM EDT) Narrative Diann Ramirez MD - 02/08/2025 11:16 AM EDT Heart rate 52 bpm. ??[place] 50 degrees. ??Normal sinus rhythm. ??First-degree AV block. ??No signs of left atrial enlargement or right atrial enlargement. ??No sign of hypertrophy. ??No ST elevation or ST depression. ?? Normal T waves. ??EKG without significant abnormalities. us Diann Ramirez MD ECG ORDERABLES Final Resul t documented in this encounter Visit Diagnoses Diagnosis Pain of left calf- Primary Other chest pain Hiatal hernia Diaphragmatic hernia without mention of obstruction or gangrene documented in this encounter Additional Health Concerns Assessment Noted Time PHQ-9 Depression Total Score: 4 03/20/20 24 9:12 AM EDT documented as of this encounter Care Teams Proof Machine Operator Relationship Specialty Start Date End Date Diann Ramirez MD [address] [place] [id number] PCP - General Internal Medicine 07/16/12 documented as of this encounter
--- OUTSIDE RECORDS SUMMARY | 2025-02-08 12:42 | XMS_ITS | Encounter Summary ---
Author Organization [employer] Address 75 [facility] 7 [place] [address] Care Team Providers Care Computer Systems Manager Name Role Phone Diann Ramirez MD Primary Care Provider [phone] Reason for Visit * Reason Onset Date Comments Med Refill 09/02/2024 Encounter Details Date Type Department Care Team (Late st Contact Info) Description 09/02/2024 Telephone [facility] MEDICINE [address] [place] [address] Diann Ramirez MD [address] [place] [address] Med Refill Social History Tobacco Use Types [...] 1 MG tablet To be sent to: [id number] - [place] - [address] [facility] [place] [facility] [place] [facility] [place] documented in this encounter Plan of Treatment Upcoming Encounters Date Type Department Care Team (Late st Contact Info) Description 03/21/2025 1:30 PM EDT Telemedicine [facility] CHC MED & PEDS [address] [place] [address] Naomi Reyes, TABATHA [address] [place] [address] documented as of this encounter Visit Diagnoses Not on filedocumented in this encounter Additional Health Concerns Assessment Noted Time PHQ-9 Depression Total Score: 4 03/20/20 24 9:12 AM EDT documented as of this encounter Care Teams Computer Systems Manager Relationship Specialty Start Date End Date Diann Ramirez MD [address] [place] [address] PCP - General Internal Medicine 07/16/12 documented as of this encounter
== END 2025-02-08 10:41 | disposition home or self-care (01) ==
LOC: HO.XRAY 10:40
PROVIDERS: PCP Internal Medicine; Visit Provider Internal Medicine
DX: R07.89 Other chest pain (principal)
CPT/HCPCS: 71046

== ENCOUNTER → 2025-02-08 10:46 | Outpatient (BNV) | payer MEDICAID, SELFPAY | PROVIDERS: PCP Internal Medicine; Visit Provider Radiology Diagnostic Radiology | DX: R07.9 Chest pain, unspecified (principal) | CPT/HCPCS: 71046 ==

== ENCOUNTER 2025-02-10 08:37 | Outpatient (REF) | payer MEDICAID, SELFPAY ==
--- NOTE | ~2025-02-10 | XR_ITS ---
EXAMINATION: XR ANKLE, LEFT CLINICAL INFORMATION: M25.579 - Pain in unspecified ankle and joints of unspecified foot COMPARISON: 12/30/2024. TECHNIQUE: AP, lateral, and mortise views of the left ankle. FINDINGS: Redemonstration of lateral plate and screw fixation of distal fibular fracture. Hardware is intact and well seated. There is a radiolucent syndesmotic stabilization device. The fracture lines are still visible although sclerotic and blunted indicating healing. There is a healing small avulsion fragment of the posterior malleolus. There are stable subchondral cystic changes with mild subchondral sclerosis of the talar dome. Similar findings noted in the intertarsal joints. This may be posttraumatic, or inflammatory. The mortise remains intact. No new bony abnormalities. There is a persistent ankle joint effusion and there is persistent mild soft tissue swelling. XR/XR ankle LT min 3V IMPRESSION: 1. Healing fixated distal fibular fracture. 2. Healing small avulsion fracture posterior malleolus. 3. Hardware intact without complication. 4. Similar subchondral sclerosis and cystic changes in the talar dome and in the intertarsal joints. Electronically signed by: Carter Ruiz MD 02/11/2025 03:01 PM EDT
--- OUTSIDE RECORDS SUMMARY | 2025-02-11 08:41 | XMS_ITS | Encounter Summary ---
Author Organization [employer] Address [address] [facility] 7t [place] [address] Care Team Providers Care Stabber Name Role Phone Diann Ramirez MD Primary Care Provider [phone] Encounter Details Date Type Department Care Team (Late st Contact Info) Description 10/01/2024 Orders Only [facility] CHC MED & PEDS [address] [place], [place] [phone] Diann Ramirez MD [address] [place] [address] Hiatal hernia (Primary Dx) Social History Tobacco [...] Info) Description 03/21/2025 1:30 PM EDT Telemedicine [facility] MED & PEDS [address] [place] [address] Naomi Reyes RN [address] [place] [address] 05/19/2025 1:00 PM EDT Office Visit [facility] MED & PEDS [address] [place] [address] Diann Ramirez MD [address] [place] [address] documented as of this encounter Visit Diagnoses Diagnosis Hiatal hernia- Primary Diaphragmatic hernia without mention of obstruction or gangrene documented in this encounter Additional Health Concerns Assessment Noted Time PHQ-9 Depression Total Score: 4 03/20/20 24 9:12 AM EDT documented as of this encounter Care Teams Stabber Relationship Specialty Start Date End Date Diann Ramirez MD [address] [place] [address] PCP - General Internal Medicine 07/16/12 documented as of this encounter
--- OUTSIDE RECORDS SUMMARY | 2025-02-11 08:41 | XMS_ITS | Encounter Summary ---
Author Organization [employer] Address [address] [place] [address] 7t [place] [address] Care Team Providers Care Qm Consultant Name Role Phone Diann Ramirez MD Primary Care Provider [phone] Reason for Referral * Consultation (Routine) - Closed Specialty Diagnoses / Procedures Referred By Dania blackman Referred To Contact Hematology and Oncology Diagnoses Microcytic anemia Bicytopenia Diann Ramirez MD [address] [place] [address] Phone: tel: fax: Cornell Culver MD [address] [place] [phone] Phone: tel: fax: Referral ID Status Reason Start Date Expiration Date V isits Requested Visits Authorized [id number] Closed Specialty Services Required 03/16/2024 03/16/2025 1 1 * Imaging (Routine) - Closed Specialty Diagnoses / Procedures Referred By Contcary t Referred To Contact Diagnoses Numbness of right foot Numbness of left foot Procedures EMG Diann Ramirez MD [address] [place] [address] Phone: tel: fax: [address] Phone: tel: fax: Referral ID Status Reason Start Date Expiration Date Visits Re quested Visits Authorized [id number] Closed 03/16/2024 03/16/2025 1 1 Encounter Details Date Type Department Care Team (Late Contact Info) Description 03/12/2024 Orders Only [facility] [address] [place] [address] Diann Ramirez MD [address] [place] [address] Microcytic anemia (Primary Dx); Vitamin D deficiency; [...] EDT Telemedicine [facility] [address] [place] [address] Naomi Reyes, RN [address] [place] [address] 05/19/2025 1:00 PM EDT Office Visit [facility] [address] [place] [address] Diann Ramirez MD [address] [place] [address] Scheduled Orders Name Type Priority Associated Diagnoses [...] EDT Narrative 03/24/2024 3:35 PM EDT ? [facility] ?[address] ?[place] [address] ? CT Scan Report ? Signed ? Patient: Stopa,Luc J ?MR#: [id number] ?? 78 ? : 1980 ?Acct:[id number] ? Age/Sex: 43 / M ?ADM Date: 03/24/24 ? Loc: HO.ED ? Attending Dr: ? Ordering Physician: Phani Gamino DO ?? Date of Service: 03/24/24 ?? Procedure(s): CT head/brain wo IV con ?? Accession Number(s): [id number] ? cc: Diann Ramirez MD; Phani Gamino [...] 1531 ? DD/ 1423 ? TD/TT: ? Heeler Machine: CARMEN ? Procedure Note Donotuseinterpreter, Image - 03/24/[address] [address] [address] Scan Report Signed Patient: Luc Erickson JMR#: [id number] [birth year] : 1980Acct:[id number] Age/Sex: 43 / MADM Date: 03/24/24 Loc: HO.ED Attending Dr: Ordering Physician: Phani Gamino DO Date of Service: 03/24/24 Procedure(s): CT head/brain wo IV con Accession Number(s): [id number] cc: Diann Ramirez MD; Phani Gamino DO [...] in OV> 03/24/24 1531 DD/ 1423 TD/TT: Heeler Machine: CARMEN [facility] External Provider IMG CT PROCEDURES Final Result * XR Chest 2 Views (03/24/2024 2:00 PM EDT) Anatomical Region Laterality Modality Chest Radiographic Lacey ging 03/24/2024 2:00 PM EDT Narrative 03/24/2024 3:11 PM EDT ? [facility] ?[address] ?[place] [address] ?XRay Report ? Signed ? Patient: Luc Erickson ?MR#: [id number] ?? 78 ? : 1980 ?Acct:[id number] ? Age/Sex: 43 / M ?ADM Date: 03/24/24 ? Loc: HO.ED ? Attending Dr: ? Ordering Physician: Phani Gamino DO ?? Date of Service: 03/24/24 ?? Procedure(s): XR chest 2V ?? Accession Number(s): [id number] ? cc: Diann Ramirez MD; Phani Gamino [...] 1507 ? DD/ 1400 ? TD/TT: ? Heeler Machine: ? Procedure Note Colt Avendaño - 03/24/2024 [facility] [address] [facility] [address] XRay Report Signed Patient: Luc Erickson JMR#: [id number] [birth year] : 1980Acct:[id number] Age/Sex: 43 / MADM Date: 03/24/24 Loc: HO.ED Attending Dr: Ordering Physician: Phani Gamino DO Date of Service: 03/24/24 Procedure(s): XR chest 2V Accession Number(s): [id number] cc: Diann Ramirez MD; Phani Gamino DO [...] in OV> 03/24/24 1507 DD/ 1400 TD/TT: Heeler Machine: [facility] External Provider IMG XR PROCEDURES Final Result * Tick-borne Disease, Acute Molecular Panel (03/24/2024 12:15 PM EDT) Babesia microti DNA, Real Time PCR NOT DETECTED NOT DETECTED [facility] Comment:This test was develo ped and its analytical performancecharacteristics have been determined by [employer]. It has not been cleared or approved by theFDA. This assay has been validated pursuant to the CLIAregulations and is used for clinical purposes.THIS TEST WAS PERFORMED AT:[facility] [place] [phone] MEMBRENO MD Ehrlichia chaffensis DNA Real Time PCR NOT DETECTED NOT DETECTED [facility] Comment:This test was develo ped and its analytical performancecharacteristics have been determined by [employer]. It has not been cleared or approved by theFDA. This assay has been validated pursuant to the CLIAregulations and is used for clinical purposes.THIS TEST WAS PERFORMED AT:[employer] [address] [phone] MEMBRENO MD Anaplasma phagocytophilum DNA, QL Real Time PCR NOT DETECTED NOT DETECTED [facility] Comment:This test was develo ped and its analytical performancecharacteristics have been determined by [employer]. It has not been cleared or approved by theFDA. This assay has been validated pursuant to the CLIAregulations and is used for clinical purposes. Borrelia Species DNA, Ql Real Time PCR NOT DETECTED NOT DETECTED [facility] Comment:This test was develo ped and its analytical performancecharacteristics have been determined by [employer]. It has not been cleared or approved by theFDA. This assay has been validated pursuant to the CLIAregulations and is used for clinical purposes.For additional information, please refer [email or web address](This link is being provided for informational/educational purposes only.)THIS TEST WAS PERFORMED AT:[employer] [address] [phone] MEMBRENO MD Borrelia Miyamotoi DNA, Ql Real Time PCR NOT DETECTED NOT DETECTED [facility] Comment:This test detects bu t does not distinguish betweenB. miyamotoi and B. hermsii.This test was developed and its analytical performancecharacteristics have been determined by [employer]. It has not been cleared or approved by theFDA. This assay has been validated pursuant to the CLIAregulations and is used for clinical purposes.THIS TEST WAS PERFORMED AT:[employer] [address] [phone] MEMBRENO MD Comment SEE NOTE [facility] Comment:A negative result do es not exclude Borrelia infectionas the concentration of the organism in blood may be lowor non-existent in patients with Lyme disease, and maydepend on timing of specimen collection from onset ofsymptoms. Clinical correlation is recommended andadditional studies such as serologic testing may beindicated.THIS TEST WAS PERFORMED AT:[employer] [address] [id number] MEMBRENO MD 03/24/2024 12:1 5 PM EDT 03/24/2024 12:19 PM EDT us Generic External Data Provider LAB BLOOD ORDERAB LES Final Result Performing Organization Address [facility] Co de Phone Number [facility] [address] [place] [phone] * Slide Review (03/24/2024 12:15 PM EDT) Slide Review VERIFIED [facility] 03/24/2024 12:1 5 PM EDT 03/24/2024 12:19 PM EDT Generic External Data Provider LAB BLOOD ORDERAB LES Final Result Performing Organization Address [facility] Phone Number [facility] [address] [place] [phone] * (ABNORMAL) CBC auto differential (03/24/2024 12:15 PM EDT) White Blood Count 8.3 4.8 - 10.8 X10*3/uL [facility] Red Blood Count 4.86 4.60 - 5.80 X10*6/uL [facility] Hemoglobin 14.0 14.0 - 18.0 g/dl [facility] Hematocrit 41.0(L) 42.0 - 52.0 % [facility] Mean Corpuscular Volume 84.4 80.0 - 98.0 fL [facility] Mean Corpuscular Hemoglobin 28.8 27.0 - 33.0 pg [facility] Mean Corpuscular HGB Conc 34.1 31.0 - 36.0 g/dl [facility] Red Cell Distribution Width 12.2 11.0 - 16.0 % [facility] Platelet Count 122(L) 160 - 400 X10*3/uL [facility] Comment:Confirmed by smear. Mean Platelet Volume 10.8 9.4 - 12.4 fL [facility] Neutrophils Percent Auto 62.4 45 - 73 % [facility] Imm Gran Pct Auto 0.7(H) 0.0 - 0.4 % [facility] Lymphocytes Percent Auto 27.4 20 - 40 % [facility] Monocytes Percent Auto 5.6 2 - 11 % [facility] Eosinophils Percent Auto 3.3 0 - 4 % [facility] Basophils Percent Auto 0.6 0 - 2 % [facility] NRBC Pct Auto 0.0 0.0 - 0.2 /100WBC [facility] Neutrophils Absolute Auto 5.2 2.0 - 8.3 x10*3/uL [facility] Imm Gran Abs Auto 0.06(H) 0.00 - 0.03 X10*3/uL [facility] Lymphocytes Absolute Auto 2.3 1.2 - 4.9 X10*3/uL [facility] Monocytes Absolute Auto 0.5 0.1 - 1.2 X10*3/uL [facility] Eosinophils Absolute Auto 0.3 0.0 - 0.4 X10*3/uL [facility] Basophils Absolute Auto 0.1 0.0 - 0.2 X10*3/uL [facility] NRBC Abs Auto 0.000 0.0 - 0.012 X10*3/uL [facility] 03/24/2024 12:1 5 PM EDT 03/24/2024 12:19 PM EDT us Generic External Data Provider LAB BLOOD ORDERAB LES Edited Result - Final [facility] [address] [place] [phone] * TSH with Reflex to Free T4 (03/24/2024 12:15 PM EDT) TSH reflex Free T4 1.53 0.32 - 4.0 uIU/mL [facility] 03/24/2024 12:1 5 PM EDT 03/24/2024 12:19 PM EDT Generic External Data Provider LAB BLOOD ORDERAB LES Final Result Performing Organization Address [facility] Co de Phone Number [facility] [address] [place] [phone] * Ferritin (03/24/2024 12:15 PM EDT) Ferritin 109 20 - 250 ng/mL [facility] 03/24/2024 12:1 5 PM EDT 03/24/2024 12:19 PM EDT Generic External Data Provider LAB BLOOD ORDERAB LES Final Result Performing Organization Address [facility] de Phone Number [facility] [address] [place] [phone] * High Sensitivity Troponin I (03/24/2024 12:15 PM EDT) TROPONIN I HIGH SENSITIVITY <2.7 <3.5 - 35.0 ng/L [facility] Comment:The Cha high sens itivity Troponin-I results should beused in conjunction with other diagnostic information suchas ECG, clinical observations and information, and patientsymptoms to aid in the diagnosis of AK. 03/24/2024 12:1 5 PM EDT 03/24/2024 12:19 PM EDT Generic External Data Provider LAB BLOOD ORDERAB LES Final Result Performing Organization Address [facility] Co de Phone Number [facility] [address] [place] [phone] * Magnesium (03/24/2024 12:15 PM EDT) Magnesium 1.9 1.6 - 2.6 mg/dL [facility] 03/24/2024 12:1 5 PM EDT 03/24/2024 12:19 PM EDT us Generic External Data Provider LAB BLOOD ORDERAB LES Final Result [facility] [address] [place] [phone] [phone] * (ABNORMAL) Comprehensive Metabolic Panel (03/24/2024 12:15 PM EDT) Sodium 140 135 - 145 mmol/L [facility] Potassium 3.6 3.3 - 5.1 mmol/L [facility] Chloride 106 96 - 108 mmol/L [facility] Carbon Dioxide 27 22 - 29 mmol/L [facility] Anion Gap 11(L) 12 - 20 [facility] Urea Nitrogen (BUN) 8(L) 9 - 16 mg/dL [facility] Creatinine, Serum 0.84 0.5 - 1.4 mg/dL [facility] Creatinine Clr Calc Pharmacy 145.2 [facility] Comment:eGFR (calculated fro m the MDRD study equation) and eCrCl(calculated from the Cockcroft-Gault equation) are based ondifferent parameters and may not yield comparable results.If eCrCl result is absurd, please check patient'sheight/weight. Estimated Glomerular Filt Rate >60 [facility] Comment:NOTE: For -Am erican individuals, multiply the result by 1.210.Chronic Kidney Disease: Estimated GFR < 60 mL/min/1.32l8Lhfwtk Kidney Disease: Estimated GFR < 15 mL/min/1.73m2 Glucose 113 60 - 115 mg/dL [facility] Calcium 9.3 8.4 - 10.2 mg/dL [facility] Bilirubin, Total 0.3 0.0 - 1.0 mg/dL [facility] Aspartate Amino Transferase 15 5 - 37 U/L [facility] Alanine Aminotransferase 13 0 - 40 U/L [facility] Total Protein 7.5 6.5 - 8.0 g/dL [facility] Albumin Level 4.3 3.5 - 5.0 g/dL [facility] Alkaline Phosphatase 79 39 - 117 U/L [facility] 03/24/2024 12:1 5 PM EDT 03/24/2024 12:19 PM EDT Generic External Data Provider LAB BLOOD ORDERAB LES Final Result Performing Organization Address [facility] Co de Phone Number [facility] [address] [place] [phone] [phone] * Prothrombin Time-INR (03/24/2024 12:15 PM EDT) Prothrombin Time 12.4 11.1 - 13.3 SEC [facility] INTERNATIONAL NORM RATIO 1.0 0.9 - 1.1 [facility] Comment:INTERNATIONAL NORMAL IZED RATIO (INR) [...] ORDERAB LES Final Result Performing Organization Address [facility] Co de Phone Number [facility] [address] [place] [address] [phone] * (ABNORMAL) Reticulocyte Count (03/16/2024 11:56 AM EDT) Reticulocytes Absolute 0.127(H) 0.026 - 0.095 X10*6/uL [facility] Immature Retic Fraction 15.3(H) 2.3 - 13.4 % [facility] Retic HGB Equivalent 33.6 30.0 - 35.0 pg [facility] Reticulocyte Percent 2.8(H) 0.5 - 1.8 % [facility] Blood Venous blood specimen / Unknown 03/16/2024 11:56 AM EDT 03/16/2024 2:40 PM EDT us Diann Ramirez MD LAB BLOOD ORDERABLES Final Result Performing Organization Address [facility] Co de Phone Number [facility] [address] [place] [phone] * Ferritin (03/16/2024 11:56 AM EDT) Ferritin 118 20 - 250 ng/mL [facility] Blood Venous blood specimen / Unknown 03/16/2024 11:56 AM EDT 03/16/2024 2:42 PM EDT us Diann Ramirez MD LAB BLOOD ORDERABLES Final Result Performing Organization Address [facility] Co de Phone Number [facility] [address] [place] [phone] * Iron And Total Iron Binding Capacity (03/16/2024 11:56 AM EDT) Iron 55 45 - 160 mcg/dL [facility] Total Iron Binding Capacity 261 228 - 428 mcg/dL [facility] Percent Iron Saturation 21 15 - 50 % [facility] Unsaturated Iron Binding 206 ug/dL [facility] Blood Venous blood specimen / Unknown 03/16/2024 11:56 AM EDT 03/16/2024 2:42 PM EDT us Diann Ramirez MD LAB BLOOD ORDERABLES Final Result Performing Organization Address [facility] Co de Phone Number [facility] [address] [place] [phone] documented in this encounter Visit Diagnoses Diagnosis Microcytic anemia- Primary Unspecified iron deficiency anemia Vitamin D deficiency Primary hypertension Unspecified essential hypertension Numbness of right foot Numbness of left foot Bicytopenia documented in this encounter Additional Health Concerns Assessment Noted Time PHQ-9 Depression Total Score: 1 10/31/19 23 3:59 PM EST documented as of this encounter Care Teams Qm Consultant Relationship Specialty Start Date End Date Diann Ramirez MD [address] [place] [address] PCP - General Internal Medicine 07/16/12 documented as of this encounter
--- OUTSIDE RECORDS SUMMARY | 2025-02-11 08:41 | XMS_ITS | Encounter Summary ---
Author Organization [employer] Address [address] [facility] 7 [place] [address] Care Team Providers Care Asp Net Software Developer Name Role Phone Diann Ramirez MD Primary Care Provider [phone] Reason for Visit * Reason Onset Date Comments Medication Question 01/17/2025 Encounter Details Date Type Department Care Team ([facility] st Contact Info) Description 01/17/2025 Telephone [facility] [address] [place] [address] Diann Ramirez MD [address] [place] [address] Medication Question Social History Tobacco Use Types [...] mg keeps being sent. Contact pt at [phone] * Telephone Encounter - Perri Moulton - 01/17/2025 9:37 AM EDT Tc from pt requesting a call back regarding atenolol (Tenormin) 50 MG tablet. Pt stated its supposed to be 25mg 90 day supply due to insurance coverage. Contact pt at [phone] documented in this encounter Plan of Treatment Upcoming Encounters Date Type Department Care Team (Late st Contact Info) Description 03/21/2025 1:30 PM EDT Telemedicine [facility] [address] [place] [address] Naomi Reyes, RN [address] [place] [address] 05/19/2025 1:00 PM EDT Office Visit [facility] [address] [place] [address] Diann Ramirez MD [address] [place] [address] documented as of this encounter Visit Diagnoses Not on filedocumented in this encounter Additional Health Concerns Assessment Noted Time PHQ-9 Depression Total Score: 4 03/20/20 24 9:12 AM EDT documented as of this encounter Care Teams Asp Net Software Developer Relationship Specialty Start Date End Date Diann Ramirez MD [address] [place] [address] PCP - General Internal Medicine 07/16/12 documented as of this encounter
--- OUTSIDE RECORDS SUMMARY | 2025-02-11 08:41 | XMS_ITS | Encounter Summary ---
Author Organization [employer] Address [address] [facility] 7 [place] [address] Care Team Providers Care Painting Department Supervisor Name Role Phone Diann Ramirez MD Primary Care Provider [phone] Reason for Visit * Reason Onset Date Comments Med Refill 05/31/2024 Encounter Details Date Type Department Care Team (Late st Contact Info) Description 05/31/2024 Telephone [facility] MEDICINE [address] [place] [address] Diann Ramirez MD [address] [place] [address] Med Refill Social History Tobacco Use Types [...] 1 MG tablet To be sent to: [id number] - [place] [address] [facility] [place] [facility] documented in this encounter Plan of Treatment Upcoming Encounters Date Type Department Care Team (Late st Contact Info) Description 03/21/2025 1:30 PM EDT Telemedicine [facility] [address] [place] [address] Naomi Reyes RN [address] [place] [address] 05/19/2025 1:00 PM EDT Office Visit [facility] [address] [place] [address] Diann Ramirez MD [address] [place] [address] documented as of this encounter Visit Diagnoses Not on filedocumented in this encounter Additional Health Concerns Assessment Noted Time PHQ-9 Depression Total Score: 4 03/20/20 24 9:12 AM EDT documented as of this encounter Care Teams Painting Department Supervisor Relationship Specialty Start Date End Date Diann Ramirez MD [address] [place] [address] PCP - General Internal Medicine 07/16/12 documented as of this encounter
--- OUTSIDE RECORDS SUMMARY | 2025-02-11 08:41 | XMS_ITS | Encounter Summary ---
Author Organization [employer] Address [address] [facility] 7 [place] [address] Care Team Providers Care Traveling Sales Executive Name Role Phone Diann Ramirez MD Primary Care Provider [phone] Reason for Visit * Reason Onset Date Comments Med Refill 11/25/2022 Encounter Details Date Type Department Care Team (Late st Contact Info) Description 11/25/2022 Telephone [facility] MEDICINE [address] [place] [address] Diann Ramirez MD [address] [place] [address] Med Refill Social History Tobacco Use Types [...] Info) Description 03/21/2025 1:30 PM EDT Telemedicine [facility] MED & PEDS [address] [place] [address] Naomi Reyes, TABATHA [address] [place] [address] 05/19/2025 1:00 PM EDT Office Visit [facility] MED [facility] PEDS [address] [place] [address] Diann Ramirez MD [address] [place] [address] documented as of this encounter Visit Diagnoses Not on filedocumented in this encounter Additional Health Concerns Assessment Noted Time PHQ-9 Depression Total Score: 1 10/31/19 23 3:59 PM EST documented as of this encounter Care Teams Traveling Sales Executive Relationship Specialty Start Date End Date Diann Ramirez MD [address] [place] [address] PCP - General Internal Medicine 07/16/12 documented as of this encounter
--- OUTSIDE RECORDS SUMMARY | 2025-02-11 08:41 | XMS_ITS | Encounter Summary ---
Author Organization [employer] Address [address] [facility] 7t [place] [address] Care Team Providers Care Silver Lap Machine Tender Name Role Phone Diann Ramirez MD Primary Care Provider [phone] Encounter Details Date Type Department Care Team (Late Contact Info) Description 10/18/2022 Orders Only [facility] MEDICINE [address] [place] [address] Diann Ramirez MD [address] [place], [place] [phone] Acute cough; Bronchospasm Social History Tobacco Use [...] Info) Description 03/21/2025 1:30 PM EDT Telemedicine [facility] PEDS [address] [place], [place] [phone] Naomi Reyes, TABATHA [address] [place], [place] [phone] 05/19/2025 1:00 PM EDT Office Visit [facility] MED & PEDS [address] [place] [address] Diann Ramirez MD [address] [place] [address] documented as of this encounter Visit Diagnoses Diagnosis Acute cough Bronchospasm Acute bronchospasm documented in this encounter Care Teams Silver Lap Machine Tender Relationship Specialty Start Date End Date Diann Ramirez MD [address] [place] [address] PCP - General Internal Medicine 07/16/12 documented as of this encounter
--- OUTSIDE RECORDS SUMMARY | 2025-02-11 08:41 | XMS_ITS | Clinical Summary ---
Author Organization [employer] Address [address] [facility] 7t [place] [address] Care Team Providers Care Administrative Law Judge Name Role Phone Diann Ramirez MD Primary Care Provider +1- [phone] Allergies Active Allergy Reactions Criticality Noted Date [...] 23 Active ergocalciferol (Vitamin D2) 1.25 MG (46542 UT) capsuleIndicati ons:Vitamin D deficiency Take 1 [...] protective factors. Referral placed sent to [facility] on 07/21 for OP services. [...] intervention , Patient to reach out to [facility] team as needed, Patient to engage in [...] protective factors. Referral placed sent to [facility] on 07/21 for OP services. [...] intervention , Patient to reach out to [facility] team as needed, Patient to engage in OP therapy , and Patient to reach out to [facility] as needed Thrombocytopenia 03/20/2024 Assessment & [...] Encounters Date Type Department Care Team Description 02/10/2025 Telephone [place] [email or web address] [facility] [address] [place], [place] [phone] Diann Ramirez MD US DOPPLER ORDER 02/08/2025 9:40 AM EDT Office Visit [facility] MED & PEDS [address], [place] [phone] Diann Ramirez MD Pain of left calf (Primary Dx); Other chest pain; Hiatal hernia 02/08/2025 Travel 02/04/2025 Telephone [facility] MED & PEDS [address] [place] [address] Diann Ramirez MD Nurse Triage 01/24/2025 Refill [facility] MEDICINE [address] [place] [address] Diann Ramirez MD Anxiety 01/17/2025 Orders Only [facility] MED & PEDS [address] [place] [address] Diann Ramirez MD Primary hypertension (Primary Dx) 01/17/2025 Telephone [facility] MED & PEDS [address] [place] [address] Diann Ramirez MD Medication Question 01/14/2025 Refill [facility] MED & PEDS [address] [place] [address] Diann Ramirez MD 01/14/2025 Refill [facility] MEDICINE [address] [place] [address] Diann Ramirez MD 12/31/2024 Population Health Risk Score [facility] () Department [address] [place] [phone] Provider, Population Health Generic 12/24/2024 Refill [facility] MED & PEDS [address] [place] [address] Naomi Reyes, TABATHA Anxiety 12/24/2024 Telephone [facility] MEDICINE [address] [place] [address] Diann Ramirez MD Med Refill 12/20/2024 2:00 PM EST Telemedicine [facility] MED & PEDS [address] [place] [address] Naomi Reyes, RN Anxiety; Long-term current use of benzodiazepine 12/20/2024 Travel 11/24/2024 Refill [facility] MEDICINE [address] [place] [address] Diann Ramirez MD Anxiety 11/15/2024 9:15 AM EST Office Visit [facility] MED & PEDS [address] [place] [address] Diann Ramirez MD Primary hypertension (Primary Dx); Other closed fracture of distal end of left fibula, initial encounter; Dietary counseling; Exercise counseling; Class 2 severe obesity due to excess calories with serious comorbidity and body mass index (BMI) of 35.0 to 35.9 in adult (CMS/HCC) 11/15/2024 Travel from Last 3 Months Immunizations [facility] [address] [place] [address] Naomi Reyes RN [address] [place] [address] 05/19/2025 1:00 PM EDT Office Visit [facility] MED & PEDS [address] [place] [address] Diann Ramirez MD [address] [place] [address] Health Maintenance Due Date Last Done Comments [...] 11:16 AM EDT Heart rate 52 bpm. ??[place] 50 degrees. ??Normal sinus rhythm. ??First-degree AV [...] EDT Narrative 02/09/2025 8:43 AM EDT ? [facility] ?[address] ?[place] [address] ?XRay Report ? Signed ? Patient: DreLuc Carreon ?MR#: [id number] ?? 78 ? : 1980 ?Acct:[id number] ? Age/Sex: 44 / M ?ADM Date: 02/08/25 ? Loc: HO.XRAY ? Attending Dr: Diann Ramirez MD ? Ordering Physician: Diann Ramirez MD ?? Date of Service: 02/08/25 ?? Procedure(s): XR chest 2V ?? Accession Number(s): [id number] ? cc: Diann Ramirez MD ? EXAMINATION: [...] DD/ 1046 ? TD/TT: 02/08/25 1118 ? Engineer Booster And Exhauster: ? Procedure Note Donotyeniter, Image - 02/09/[address] [address] XRay Report Signed Patient: Luc Erickson JMR#: [id number] 78 : 1980Acct:[id number] Age/Sex: 44 / MADM Date: 02/08/25 Loc: HO.XRAY Attending Dr: Diann Ramirez MD Ordering Physician: Diann Ramirez MD Date of Service: 02/08/25 Procedure(s): XR chest 2V Accession Number(s): [id number] cc: Diann Ramirez MD EXAMINATION: XR CHEST [...] Billy Mcdonald MD 02/09/2025 08:40 AM EDT Dictated By: Billy Lama MD Signed By: <Electronically signed by Billy Mandujano MDin OV> 02/09/25 0840 DD/ 1046 TD/TT: 02/08/25 1118 Engineer Booster And Exhauster: us Diann Ramirez MD IMG XR PROCEDURES Final Res ult * XR Ankle 3+ Views Left (11/26/2024 11:03 AM EST) Only the most recent of2 resultswithin the time period is included. Anatomical Region Laterality Modality Lower Extremities, Ankle Left Radiogr aphic Imaging 11/26/2024 11:0 3 AM EST Narrative 11/26/2024 11:36 AM EST ? [facility] ? [address] ?[place] [address] ?XRay Report ? Signed ? Patient: Stopa,Luc J ?MR#: [id number] ?? 78 ? : 1980 ?Acct:[id number] ? Age/Sex: 44 / M ?ADM Date: 11/26/24 ? Loc: HO.HOSX ? Attending Dr: Misha VELASQUEZ ? Ordering Physician: Anna Bennett PA-C ?? Date of Service: 11/26/24 ?? Procedure(s): XR ankle LT min 3V ?? Accession Number(s): [id number] ? cc: Diann Ramirez MD; Anna Bennett [...] DD/ 1103 ? TD/TT: 11/26/24 1112 ? Engineer Booster And Exhauster: ? Procedure Note Colt Avendaño - 11/26/2024 [facility] [address] [facility] [address] [place] [address] XRay Report Signed Patient: Luc Erickson R#: [id number] [birth year] : 1980Acct:[id number] Age/Sex: 44 / MADM Date: 11/26/24 Loc: IAN Attending Dr: Misha VELASQUEZ Ordering Physician: Anna Bennett PA-C Date of Service: 11/26/24 Procedure(s): XR ankle LT min 3V Accession Number(s): [id number] cc: Diann Ramirez MD; Anna Bennett PA-C [...] 11/26/24 1133 DD/ 1103 TD/TT: 11/26/24 1112 Engineer Booster And Exhauster: [facility] External Provider IMG XR PROCEDURES Final Result * FL Guidance in OR (11/24/2024 2:38 PM EST) Anatomical Region Laterality Modality X-Ray Angiograph y 11/24/2024 2:38 PM EST Narrative 11/25/2024 8:58 AM EST ? [place] [facility] ?[address] ?[place] [address] ? Fluoroscopy Report ? Signed ? Patient: Stopa,Luc J ?MR#: [id number] ?? 78 ? : 1980 ?Acct:[id number] ? Age/Sex: 44 / M ?ADM Date: 11/24/24 ? Loc: HO.SSS ? Attending Dr: Will Randolph MD ? Ordering Physician: Will Randolph MD ?? Date of Service: 11/24/24 ?? Procedure(s): FL guidance in OR ?? Accession Number(s): [id number] ? cc: Diann Ramirez MD; Will Randolph [...] DD/ 1438 ? TD/TT: 11/24/24 1527 ? Engineer Booster And Exhauster: ? Procedure Note Colt Avendaño - 11/25/[address] [address] Fluoroscopy Report Signed Patient: Luc Erickson JMR#: [id number] [birth year] : 1980Acct:[id number] Age/Sex: 44 / MADM Date: 11/24/24 Loc: HO.SSS Attending Dr: Will Randolph MD Ordering Physician: Will Randolph MD Date of Service: 11/24/24 Procedure(s): FL guidance in OR Accession Number(s): [id number] cc: Diann Ramirez MD; Will Randolph MD [...] 11/25/24 0856 DD/ 1438 TD/TT: 11/24/24 1527 Engineer Booster And Exhauster: [facility] External Provider IMG IR PROCEDURES Final Result * (ABNORMAL) Lipid Panel, Standard (03/11/2024 1:07 PM EDT) Triglycerides 40 <150 mg/dL [facility] Comment:Desirable Triglyceri de: less than 150 mg/dLBorderline High Triglyceride 150-199 mg/dLHigh Triglyceride: 200-499 mg/dLVery High Triglyceride: greater than or equal to 5OO mg/dL Cholesterol 141 <200 mg/dL [facility] Comment:Desirable Cholestero l: less than 200 mg/dLBorderline High Cholesterol: 200-239 mg/dLHigh Cholesterol: greater than 239 mg/dL LDL Cholesterol Calculated 93 <100 mg/dL [facility] Comment:Desirable LDL: less than 100 mg/dLNear Optimal/Above Optimal LDL: 110- 129 mg/dLBorderline High LDL: 130-159 mg/dLHigh LDL: 160-189 mg/dLVery High LDL: greater than or equal to 190 mg/dL HDL Cholesterol 40(L) >40 mg/dL [facility] Comment:Desirable HDL: great er than 40 mg/dL Note: This HDL assay may give artificially low results in patients with liver disease. Blood Venous blood specimen / Unknown 03/11/2024 1:07 PM EDT 03/11/2024 2:22 PM EDT us Diann Ramirez MD LAB BLOOD ORDERABLES Final Result [facility] [address] [place] [phone] * HIV AB/AG (08/07/2022 2:03 PM EDT) Pathologist [facility] HIV AB/AG Nonreactive Nonreactive [facility] [...] detection of this assay. ?? The [employer] Precision Machine Operator HIV Ag/Ab Combo assay result and supplemental assay results should be interpreted in conjunction with the patient's clinical presentation, history and other laboratory results. ??If the results are inconsistent with clinical evidence, additional testing is suggested to confirm the result. 08/07/2022 2:03 PM EDT Tra Linton MD HISTORICAL/NON ORDERAB LE LABS Final Result [facility] * HEPATITIS C AB W/REFL TO HCV RNA, QN, PCR (07/01/2022 10:13 AM EDT) Pathologist [facility] HEPATITIS C ANTIBODY NON-REACT [facility] NON-REACT [facility] INDEX 0.14 <1.00 [facility] Comment: ?? HCV antibody was non-reactive. There is no laboratory ?? evidence of HCV infection. ?? In most cases, no further action is required. However, if recent HCV exposure is suspected, a test for HCV RNA (test code 06254) is suggested. ?? For additional information please refer to http://education.LiveOps.Aras/faq/DPM97q9 (This link is being provided for informational/ educational purposes only.) ?? 07/01/2022 10:1 3 AM EDT Diann Ramirez MD HISTORICAL/NON ORDERABLE LA GISELL Final Result [facility] [address] from Last 3 Months or Most Recently Relevant to Health Maintenance Insurance [employer] Care Teams Administrative Law Judge Relationship Specialty Start Date End Date Diann Ramirez MD [address] [facility] [place] [address] PCP - General Internal Medicine 07/16/12
--- OUTSIDE RECORDS SUMMARY | 2025-02-11 08:41 | XMS_ITS | Encounter Summary ---
Author Organization [employer] Address [address] [place] [address] 7 [place] [address] Care Team Providers Care Drafter Structural Name Role Phone Diann Ramirez MD Primary Care Provider [phone] Reason for Referral * Imaging (Routine) - Authorized Specialty Diagnoses / Procedures Referred By Contac t Referred To Contact Radiology Diagnoses Pain of left calf Procedures US DOPPLER EXT LOWER VENOUS LEFT Diann Ramirez MD [address] [place] [address] Phone: tel: fax: [address] Phone: tel: fax: Referral ID Status Reason Start Date Expiration Date V isits Requested Visits Authorized [id number] Authorized 02/08/2025 02/08/2026 1 1 Reason for Visit * Reason Comments left calf pain Chest Pain Encounter Details Date Type Department Care Team (Late st Contact Info) Description 02/08/2025 9:40 AM EDT Office Visit [facility] PEDS [address] [place], [place] [phone] Diann Ramirez MD [address] [place] [address] Pain of left calf (Primary Dx); Other [...] Supports (Futuro Restoring Dress Socks) [facility] restoring medium compression socks To wear daily prior to getting out of bed ergocalciferol (Vitamin D2) 1.25 MG (22020 UT) capsule Take 1 capsule (1.25 mg) [...] Upcoming Encounters Date Type Department Care Team ([facility] st Contact Info) Description 03/21/2025 1:30 PM EDT Telemedicine [facility] MED & PEDS [address] [place] [address] Naomi Reyes, RN [address] [place] [address] 05/19/2025 1:00 PM EDT Office Visit [facility] MED & PEDS [address] [place] [address] Diann Ramirez MD [address] [place] [address] Scheduled Orders Name Type Priority Associated Diagnoses [...] 11:16 AM EDT Heart rate 52 bpm. ??[place] 50 degrees. ??Normal sinus rhythm. ??First-degree AV [...] EDT Narrative 02/09/2025 8:43 AM EDT ? [facility] ?[address] ?[place] [address] ?XRay Report ? Signed ? Patient: Stopa,Luc J ?MR#: [id number] ?? 78 ? : 1980 ?Acct:[id number] ? Age/Sex: 44 / M ?ADM Date: 04/22/25 ? Loc: HO.XRAY ? Attending Dr: Diann Ramirez MD ? Ordering Physician: Diann Ramirez MD ?? Date of Service: 02/08/25 ?? Procedure(s): XR chest 2V ?? Accession Number(s): [id number] ? cc: Diann Ramirez MD ? EXAMINATION: [...] DD/ 1046 ? TD/TT: 02/08/25 1118 ? Psych Social Worker: ? Procedure Note Kateryna, Image - 02/09/2025 [place] [address] XRay Report Signed Patient: Luc Erickson JMR#: [id number] [birth year] : 1980Acct:[id number] Age/Sex: 44 / MADM Date: 02/08/25 Loc: [facility] Attending Dr: Diann Ramirez MD Ordering Physician: Diann Ramirez MD Date of Service: 02/08/25 Procedure(s): XR chest 2V Accession Number(s): [id number] cc: Diann Ramirez MD EXAMINATION: XR CHEST [...] 02/09/25 0840 DD/ 1046 TD/TT: 02/08/25 1118 Psych Social Worker: Diann Ramirez MD IMG XR PROCEDURES Final Res ult documented in this encounter Visit Diagnoses Diagnosis Pain of left calf- Primary Other chest pain Hiatal hernia Diaphragmatic hernia without mention of obstruction or gangrene documented in this encounter Additional Health Concerns Assessment Noted Time PHQ-9 Depression Total Score: 4 03/20/20 24 9:12 AM EDT documented as of this encounter Care Teams Drafter Structural Relationship Specialty Start Date End Date Diann Ramirez MD [address] [place] [address] PCP - General Internal Medicine 07/16/12 documented as of this encounter
--- OUTSIDE RECORDS SUMMARY | 2025-02-11 08:41 | XMS_ITS | Encounter Summary ---
Author Organization [employer] Address [address] [facility] 7 [place] [address] Care Team Providers Care Toe Puller Name Role Phone Diann Ramirez MD Primary Care Provider [phone] Reason for Visit * Reason Onset Date Comments Appointment Request 06/11/2024 Encounter Details Date Type Department Care Team ([facility] st Contact Info) Description 06/11/2024 Telephone [facility] MEDICINE [address] [place] [address] Diann Ramirez MD [address] [place] [address] Appointment Request Social History Tobacco Use Types [...] Tc from pt calling in regards to CABLE MAINTAINER visit from 06/18 that was canceled and is requesting to reschedule. Please contact pt at [phone]. documented in this encounter Plan of Treatment Upcoming Encounters Date Type Department Care Team (Late st Contact Info) Description 03/21/2025 1:30 PM EDT Telemedicine [facility] MED & PEDS [address] [place] [address] Naomi Reyes RN [address] [place] [address] 05/19/2025 1:00 PM EDT Office Visit [facility] MED [facility] PEDS [address] [place] [address] Diann Ramirez MD [address] [place] [address] documented as of this encounter Visit Diagnoses Not on filedocumented in this encounter Additional Health Concerns Assessment Noted Time PHQ-9 Depression Total Score: 4 03/20/20 24 9:12 AM EDT documented as of this encounter Care Teams Toe Puller Relationship Specialty Start Date End Date Diann Ramirez MD [address] [place] [address] PCP - General Internal Medicine 07/16/12 documented as of this encounter
--- OUTSIDE RECORDS SUMMARY | 2025-02-11 08:41 | XMS_ITS | Encounter Summary ---
Author Organization [employer] Address [address] [facility] 7 [place] [address] Care Team Providers Care Monument Erector Name Role Phone Diann Ramirez MD Primary Care Provider [phone] Reason for Visit * Reason Onset Date Comments US DOPPLER ORDER 02/10/2025 Encounter Details Date Type Department Care Team (Late st Contact Info) Description 02/10/2025 Telephone [facility] [address] [place] [address] Diann Ramirez MD [address] [place] [address] US DOPPLER ORDER Social History Tobacco Use Types Packs/Day Years [...] encounter Miscellaneous Notes * Telephone Encounter - Lauren Ospina - 02/10/2025 3:14 PM EDT Please confirm if this test is to R/O DVT? documented in this encounter Plan of Treatment Upcoming Encounters Date Type Department Care Team (Late st Contact Info) Description 03/21/2025 1:30 PM EDT Telemedicine [facility] MED & PEDS [address] [place] [address] Naomi Reyes RN [address] [place] [address] 05/19/2025 1:00 PM EDT Office Visit [facility] MED & PEDS [address] [place] [address] Diann Ramirez MD [address] [place] [address] documented as of this encounter Visit Diagnoses Not on filedocumented in this encounter Additional Health Concerns Assessment Noted Time PHQ-9 Depression Total Score: 4 03/20/20 24 9:12 AM EDT documented as of this encounter Care Teams Monument Erector Relationship Specialty Start Date End Date Diann Ramirez MD [address] [place] [address] PCP - General Internal Medicine 07/16/12 documented as of this encounter
--- OUTSIDE RECORDS SUMMARY | 2025-02-11 08:41 | XMS_ITS | Encounter Summary ---
Author Organization [employer] Address [address] [facility] 7 [place] [address] Care Team Providers Care Foxpro Developer Name Role Phone Diann Ramirez MD Primary Care Provider [phone] Reason for Visit * Reason Onset Date Comments Appointment Request 01/13/2024 Encounter Details Date Type Department Care Team (Late st Contact Info) Description 01/13/2024 Telephone [facility] [address] [place] [address] Diann Ramirez MD [address] [place] [address] Appointment Request Social History Tobacco Use Types [...] Info) Description 03/21/2025 1:30 PM EDT Telemedicine [facility] MED & PEDS [address] [place] [address] Naomi Reyes, TABATHA [address] [place] [address] 05/19/2025 1:00 PM EDT Office Visit [facility] MED & PEDS [address] [place] [address] Diann Ramirez MD [address] [place] [address] documented as of this encounter Visit Diagnoses Not on filedocumented in this encounter Additional Health Concerns Assessment Noted Time PHQ-9 Depression Total Score: 1 10/31/19 23 3:59 PM EST documented as of this encounter Care Teams Foxpro Developer Relationship Specialty Start Date End Date Diann Ramirez MD [address] [place] [address] PCP - General Internal Medicine 07/16/12 documented as of this encounter
--- OUTSIDE RECORDS SUMMARY | 2025-02-11 08:41 | XMS_ITS | Encounter Summary ---
Author Organization [employer] Address [address] [facility] 7 [place] [address] Care Team Providers Care Breaker Layer Name Role Phone Diann Ramirez MD Primary Care Provider [phone] Reason for Visit * Reason Onset Date Comments Referral 08/09/2024 Encounter Details Date Type Department Care Team (Late st Contact Info) Description 08/09/2024 Telephone [facility] MEDICINE [address] [place] [address] Diann Ramirez MD [address] [place], [place] [phone] Referral Social History Tobacco Use Types Packs/Day [...] Jimenez RN - 08/14/2024 12:07 PM EDT [employer] message informing pt referral for Neuro was sent to [facility] and pt should get a call [...] [facility] [address] [place] [address] Naomi Reyes RN [address] [place] [address] 05/19/2025 1:00 PM EDT Office Visit [facility] MED & PEDS [address] [place] [address] Diann Ramirez MD [address] [place] [address] documented as of this encounter Visit Diagnoses Not on filedocumented in this encounter Additional Health Concerns Assessment Noted Time PHQ-9 Depression Total Score: 4 03/20/20 24 9:12 AM EDT documented as of this encounter Care Teams Breaker Layer Relationship Specialty Start Date End Date Diann Ramirez MD [address] [place] [address] PCP - General Internal Medicine 07/16/12 documented as of this encounter
--- OUTSIDE RECORDS SUMMARY | 2025-02-11 08:41 | XMS_ITS | Encounter Summary ---
Author Organization [employer] Address 75 [facility] 7 [place] [address] Care Team Providers Care Technician Semiconductor Development Name Role Phone Diann Ramirez MD Primary Care Provider [phone] Reason for Visit * Reason Onset Date Comments Referral 11/21/2022 Encounter Details Date Type Department Care Team (Late st Contact Info) Description 11/21/2022 Telephone [facility] MEDICINE [address] [place] [address] Diann Ramirez MD [address] [place] [address] Referral Social History Tobacco Use Types Packs/Day [...] by Dr Linton Please contact pt at [phone] Please see above message. Thanks * Telephone Encounter - Mario Tavaresos - 11/21/2022 2:42 PM EST Tc from pt requesting a new referral for neurologist states don't want to be seen by Dr Linton Please contact pt at [phone] documented in this encounter Plan of Treatment Upcoming Encounters Date Type Department Care Team (Late st Contact Info) Description 03/21/2025 1:30 PM EDT Telemedicine [facility] MED & PEDS [address] [place] [address] Naomi Reyes RN [address] [place] [address] 05/19/2025 1:00 PM EDT Office Visit [facility] MED & PEDS [address] [place] [address] Diann Ramirez MD [address] [place] [address] documented as of this encounter Visit Diagnoses Diagnosis Chronic cluster headache, not intractable- Primary documented in this encounter Additional Health Concerns Assessment Noted Time PHQ-9 Depression Total Score: 1 10/31/19 23 3:59 PM EST documented as of this encounter Care Teams Technician Semiconductor Development Relationship Specialty Start Date End Date Diann Ramirez MD [address] [place] [address] PCP - General Internal Medicine 07/16/12 documented as of this encounter
--- OUTSIDE RECORDS SUMMARY | 2025-02-11 08:41 | XMS_ITS | Encounter Summary ---
Author Organization [employer] Address [address] [facility] 7 [place] [address] Care Team Providers Care Pipeman Name Role Phone Diann Ramirez MD Primary Care Provider [phone] Reason for Visit * Reason Onset Date Comments Med Refill 07/28/2024 Encounter Details Date Type Department Care Team (Late st Contact Info) Description 07/28/2024 Telephone [facility] MEDICINE [address] [place] [address] Diann Ramirez MD [address] [place], [place] [phone] Med Refill Social History Tobacco Use Types [...] 1 MG tablet To be sent to: [id number] [place] [address] [facility] documented in this encounter Plan of Treatment Upcoming Encounters Date Type Department Care Team (Late st Contact Info) Description 03/21/2025 1:30 PM EDT Telemedicine [facility] MED & PEDS [address] [place] [address] Naomi Reyes RN [address] [place] [address] 05/19/2025 1:00 PM EDT Office Visit [facility] MED & PEDS [address] [place] [address] Diann Ramirez MD [address] [place] [address] documented as of this encounter Visit Diagnoses Not on filedocumented in this encounter Additional Health Concerns Assessment Noted Time PHQ-9 Depression Total Score: 4 03/20/20 24 9:12 AM EDT documented as of this encounter Care Teams Pipeman Relationship Specialty Start Date End Date Diann Ramirez MD [address] [place] [address] PCP - General Internal Medicine 07/16/12 documented as of this encounter
--- OUTSIDE RECORDS SUMMARY | 2025-02-11 08:41 | XMS_ITS | Encounter Summary ---
Author Organization [employer] Address 75 [facility] 7t [place] [address] Care Team Providers Care Outside Deliverer Name Role Phone Diann Ramirez MD Primary Care Provider +1 [phone] Encounter Details Date Type Department Care Team (Late st Contact Info) Description 05/18/2024 Orders Only [facility] MED & PEDS [address] [place], [place] [id number] Provider, MD Shra Social History Tobacco Use Types Packs/Day Years [...] [facility] MED & PEDS [address] [place] [address] Naomi Reyes RN 505 [place] [address] 05/19/2025 1:00 PM EDT Office Visit [facility] MED & PEDS [address] [place] [address] Diann Ramirez MD 505 [place] [address] documented as of this encounter Procedures Procedure [...] documented as of this encounter Care Teams Outside Deliverer Relationship Specialty Start Date End Date Diann Ramirez MD [address] [place] [address] PCP - General Internal Medicine 07/16/12 documented as of this encounter
--- OUTSIDE RECORDS SUMMARY | 2025-02-11 08:41 | XMS_ITS | Encounter Summary ---
Author Organization [employer] Address [address] [place] [address] Care Team Providers Care Tooling Specialist Name Role Phone Diann Ramirez MD Primary Care Provider +1- [phone] Reason for Visit * Reason Onset Date Comments Appointment Request 01/06/2023 Encounter Details Date Type Department Care Team (Late st Contact Info) Description 01/06/2023 Telephone [facility] MEDICINE [address] [place] [address] Diann Ramirez MD 505 [place] [address] Appointment Request Social History Tobacco Use Types [...] requesting to r/s appt on 01/06/23 ( CABLEWAY OPERATOR Televisit ) documented in this encounter Plan of Treatment Upcoming Encounters Date Type Department Care Team (Late st Contact Info) Description 03/21/2025 1:30 PM EDT Telemedicine [facility] MED & PEDS 505 [place] [address] Naomi Reyes, TABATHA [address] [place] [address] 05/19/2025 1:00 PM EDT Office Visit [facility] MED & PEDS 505 [place] [address] Diann Ramirez MD 505 [place] [address] documented as of this encounter Visit Diagnoses Not on filedocumented in this encounter Additional Health Concerns Assessment Noted Time PHQ-9 Depression Total Score: 1 10/31/19 23 3:59 PM EST documented as of this encounter Care Teams Tooling Specialist Relationship Specialty Start Date End Date Diann Ramirez MD 505 [place] [address] PCP - General Internal Medicine 07/16/12 documented as of this encounter
--- OUTSIDE RECORDS SUMMARY | 2025-02-11 08:41 | XMS_ITS | Encounter Summary ---
Author Organization [employer] Address 75 [facility] 7 [place] [address] Care Team Providers Care Gas Well Drilling Manager Name Role Phone Diann Ramirez MD Primary Care Provider +1 [phone] Reason for Visit * Reason Onset Date Comments Appointment Request 06/17/2024 Encounter Details Date Type Department Care Team ([facility] st Contact Info) Description 06/17/2024 Telephone [facility] MEDICINE [address] [place] [address] Diann Ramirez MD [address] [place] [address] Appointment Request Social History Tobacco Use Types [...] would like a sooner appt than what justowriter operator offered documented in this encounter Plan of Treatment Upcoming Encounters Date Type Department Care Team (Late st Contact Info) Description 03/21/2025 1:30 PM EDT Telemedicine [facility] MED & PEDS 505 [place] [address] Naomi Reyes RN 505 [place] [address] 05/19/2025 1:00 PM EDT Office Visit [facility]ED[facility] 505 [place] [address] Diann Ramirez MD [address] [place] [address] documented as of this encounter Visit Diagnoses Not on filedocumented in this encounter Additional Health Concerns Assessment Noted Time PHQ-9 Depression Total Score: 4 03/20/20 24 9:12 AM EDT documented as of this encounter Care Teams Gas Well Drilling Manager Relationship Specialty Start Date End Date Diann Ramirez MD [address] [place] [address] PCP - General Internal Medicine 07/16/12 documented as of this encounter
--- OUTSIDE RECORDS SUMMARY | 2025-02-11 08:41 | XMS_ITS | Encounter Summary ---
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 Please contact pt at [phone]. documented in this encounter Plan of Treatment Upcoming Encounters Date Type Department Care Team (Late st Contact Info) Description 03/21/2025 1:30 PM EDT Telemedicine [facility] MED & PEDS [address] [place] [address] Naomi Reyes, TABATHA 505 [place] [address] 05/19/2025 1:00 PM EDT Office Visit [facility] MED & PEDS [address] [place] [address] Diann Ramirez MD 505 [place] [address] documented as of this encounter Visit Diagnoses Not on filedocumented in this encounter Additional Health Concerns Assessment Noted Time PHQ-9 Depression Total Score: 4 03/20/20 24 9:12 AM EDT documented as of this encounter Care Teams Mottle Lay Up Operator Relationship Specialty Start Date End Date Diann Ramirez MD [address] [place] [address] PCP - General Internal Medicine 07/16/12 documented as of this encounter
--- OUTSIDE RECORDS SUMMARY | 2025-02-11 08:41 | XMS_ITS | Clinical Summary ---
Author Organization [facility] Address [address] [place] [address] Phone Care Team Providers Care Contact Lens Curve Grinder Name Role Phone Physician, Pcp Unknown Primary Care Provider Alejandra vailable Allergies No known active allergies Encounters Date Type Department Care Team Description 12/09/2024 2:50 PM EST - 12/09/2024 7:00 PM EST Emergency [facility] Emergency [address] [place] [address] Edinson Hernandez, Leg swelling (Primary [...] Months Insurance MEDICAID - [place] Care Teams Contact Lens Curve Grinder Relationship Specialty Start Date End Date Physician, Pcp Unknown PCP - General 12/09/24
--- OUTSIDE RECORDS SUMMARY | 2025-02-11 08:41 | XMS_ITS | Encounter Summary ---
Author Organization [employer] Address 75 [facility] 7t [place] [address] Care Team Providers Care Plush Dresser Name Role Phone Diann Ramirez MD Primary Care Provider +1 [phone] Encounter Details Date Type Department Care Team (Late st Contact Info) Description 01/17/2025 Orders Only [facility] CH[facility] MED & PEDS [address] [place], [place] [phone] Diann Ramirez MD [address] [place] [address] Primary hypertension (Primary Dx) Social History Tobacco [...] Upcoming Encounters Date Type Department Care Team ([facility] st Contact Info) Description 03/21/2025 1:30 PM EDT Telemedicine [facility] MED [facility]EDS [address] [place] [address] Naomi Reyes RN 505 [place] [address] 05/19/2025 1:00 PM EDT Office Visit [facility] MED [facility]ED[facility] [address] [place] [address] Diann Ramirez MD [address] [place] [address] documented as of this encounter Visit Diagnoses Diagnosis Primary hypertension- Primary Unspecified essential hypertension documented in this encounter Additional Health Concerns Assessment Noted Time PHQ-9 Depression Total Score: 4 03/20/20 24 9:12 AM EDT documented as of this encounter Care Teams Plush Dresser Relationship Specialty Start Date End Date Diann Ramirez MD [address] [place] [address] PCP - General Internal Medicine 07/16/12 documented as of this encounter
--- OUTSIDE RECORDS SUMMARY | 2025-02-11 08:41 | XMS_ITS | Encounter Summary ---
Author Organization [employer] Address [address] [place] [address] 7 [place] [address] Care Team Providers Care Editorial Director Name Role Phone Diann Ramirez MD Primary Care Provider +1 [phone] Reason for Referral * Consultation (Routine) - Closed Specialty Diagnoses / Procedures Referred By Contcary t Referred To Contact Behavioral Health Diagnoses Anxiety Diann Ramirez MD [address] [place] [address] Phone: tel: fax: Referral ID Status Reason Start Date Expiration Date V isits Requested Visits Authorized [id number] Closed Specialty Services Required 03/30/2024 03/30/2025 1 1 Encounter Details Date Type Department Care Team ([facility] st Contact Info) Description 03/30/2024 Orders Only [facility] CH[facility] MED & PEDS [address] [place] [address] Diann Ramirez MD [address] [place] [address] Anxiety (Primary Dx) Social History Tobacco Use [...] 03/21/2025 1:30 PM EDT Telemedicine [facility] MED & PEDS [address] [place] [address] Naomi Reyes RN 505 [place] [address] 05/19/2025 1:00 PM EDT Office Visit [facility] MED & PEDS [address] [place] [address] Diann Ramirez MD [address] [place] [address] Scheduled Referrals Name Type Priority Associated Diagnoses Order Schedule Referral to Behavioral Health Outpatient Referral Routine Anxiety Expected: 03/30/2024 (Approximate), Expires: 03/30/2025 documented as of this encounter Visit Diagnoses Diagnosis Anxiety- Primary Anxiety state, unspecified documented in this encounter Additional Health Concerns Assessment Noted Time PHQ-9 Depression Total Score: 4 03/20/20 24 9:12 AM EDT documented as of this encounter Care Teams Editorial Director Relationship Specialty Start Date End Date Diann Ramirez MD [address] [place] [address] PCP - General Internal Medicine 07/16/12 documented as of this encounter
--- OUTSIDE RECORDS SUMMARY | 2025-02-11 08:41 | XMS_ITS | Encounter Summary ---
Author Organization [employer] Address [address] [facility] [address] 7[address] [place] [address] Care Team Providers Care Party Demonstrator Name Role Phone Diann Ramirez MD Primary Care Provider +1 [phone] Encounter Details Date Type Department Care Team [...] [facility] MED [facility] [address] [place] [address] Naomi Reyes RN [address] [place] [address] 05/19/2025 1:00 PM EDT Office Visit [facility] MED & PEDS [address] [place] [address] Diann Ramirez MD 505 [place] [address] documented as of this encounter Visit Diagnoses Not on filedocumented in this encounter Additional Health Concerns Assessment Noted Time PHQ-9 Depression Total Score: 4 03/20/20 24 9:12 AM EDT documented as of this encounter Care Teams Party Demonstrator Relationship Specialty Start Date End Date Diann Ramirez MD [address] [place] [address] PCP - General Internal Medicine 07/16/12 documented as of this encounter
--- OUTSIDE RECORDS SUMMARY | 2025-02-11 08:41 | XMS_ITS | Encounter Summary ---
Author Organization [employer] Address 75 [facility] 7 [place] [address] Care Team Providers Care Rustic Terrazzo Setter Name Role Phone Diann Ramirez MD Primary Care Provider +1 [phone] Reason for Visit * Reason Onset Date Comments Med Refill 09/02/2024 Encounter Details Date Type Department Care Team (Late st Contact Info) Description 09/02/2024 Telephone [facility] MEDICINE [address] [place] [address] Diann Ramirez MD [address] [place] [address] Med Refill Social History Tobacco Use Types [...] 1 MG tablet To be sent to: [id number] [place] [facility] [place] [facility]AM[facility] documented in this encounter Plan of Treatment Upcoming Encounters Date Type Department Care Team (Late st Contact Info) Description 03/21/2025 1:30 PM EDT Telemedicine [facility] MED & PEDS [address] [place] [address] Naomi Reyes RN [address] [place] [address] 05/19/2025 1:00 PM EDT Office Visit [facility] MED & PEDS 505 [place] [address] Diann Ramirez MD 505 [place] [address] documented as of this encounter Visit Diagnoses Not on filedocumented in this encounter Additional Health Concerns Assessment Noted Time PHQ-9 Depression Total Score: 4 03/20/20 24 9:12 AM EDT documented as of this encounter Care Teams Rustic Terrazzo Setter Relationship Specialty Start Date End Date Diann Ramirez MD [address] [place] [address] PCP - General Internal Medicine 07/16/12 documented as of this encounter
--- OUTSIDE RECORDS SUMMARY | 2025-02-11 08:41 | XMS_ITS | Encounter Summary ---
Author Organization [email or web address] Address 75 [facility] 7 [place] [address] Care Team Providers Care Precision Dancer Name Role Phone Diann Ramirez MD Primary Care Provider +1 [phone] Reason for Visit * Reason Comments Med Refill Encounter Details Date Type Department Care Team ([facility] st Contact Info) Description 01/14/2025 Refill [facility] MED & PEDS [address] [place], [place] [phone] Diann Ramirez MD 505 [place] [address] Social History Tobacco Use Types Packs/Day Years [...] Description 03/21/2025 1:30 PM EDT Telemedicine [facility] MED & PEDS [address] [place] [address] Naomi Reyes RN 505 [place] [address] 05/19/2025 1:00 PM EDT Office Visit [facility] MED & PEDS [address] [place] [address] Diann Ramirez MD [address] [place] [address] documented as of this encounter Visit Diagnoses Not on filedocumented in this encounter Additional Health Concerns Assessment Noted Time PHQ-9 Depression Total Score: 4 03/20/20 24 9:12 AM EDT documented as of this encounter Care Teams Precision Dancer Relationship Specialty Start Date End Date Diann Ramirez MD [address] [place] [address] PCP - General Internal Medicine 07/16/12 documented as of this encounter
== END 2025-02-10 08:38 | disposition home or self-care (01) ==
LOC: HO.HOSX 08:37
PROVIDERS: Visit Provider Physician Assistant
DX: S82.832D Other fracture of upper and lower end of left fibula, subsequent encounter for closed fracture with routine healing (principal); S82.892D Other fracture of left lower leg, subsequent encounter for closed fracture with routine healing; M25.572 Pain in left ankle and joints of left foot; Z98.890 Other specified postprocedural states
CPT/HCPCS: 73610; 99212

== ENCOUNTER 2025-02-10 10:52 | Outpatient (AMB) | payer MEDICAID, SELFPAY ==
--- NOTE | 2025-02-10 11:01 | A.OFFVIS_ITS ---
Intake Visit Reasons: PO LT ankle ORIF 11/24/24 NE Intake Note: Luc is a 44 year old male who presents today with a cane and a talk walking boot for a post operative appointment s/p LT ankle ORIF 11/24/24 NE. Patient reports he still is having pain on the medial aspect of the ankle. Allergies No Known Allergies Allergy (Verified 02/10/25 11:02) HPI HPI PO LT ankle ORIF 11/24/24 NE: Details: Mr. Dre moon is a 44-year-old male who presents to the office today for routine follow-up status post left ankle distal fibular ORIF with tight rope performed on 11/24/[address] Randolph. Patient presents to the office today with a cane and the tall walking boot. He has been attending physical therapy. 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 No surrounding erythema or drainage. No signs of infection. No skin breakdown. Able to dorsiflex and plantar flex. Able to move all digits. Sensation is intact. Pedal pulse intact. Capillary refill is brisk. Calf is supple and nontender. Negative Homans. NVI. Assessment & Plan Assessment & Plan (1) Status post ORIF of fracture of ankle: Code(s): Z98.890 - Other specified postprocedural states; Z87.81 - Personal history of (healed) traumatic fracture Category: Surgical Plan Mr. Dre moon is a 44-year-old male who presents to the office today for routine follow-up status post left ankle distal fibular ORIF with tight rope performed on 11/24/[address] Randolph. Patient presents to the office today with a cane and the tall walking boot. He has been attending physical therapy. While the office today, I reassured the patient that he is on the typical preoperative recovery plan. He has a lot of anxiety about the recovery of his left ankle. I recommended that he begin weaning out of the boot at this time with physical therapy. He will continue with physical therapy and follow up in 6 weeks, sooner if needed. X-rays of the left ankle which were obtained while in the office today and were reviewed by me, Anna Bennett PA-C, revealed intact orthopedic hardware with routine healing. Orders: Orders XR ankle LT min 3V Today M25.579 - Pain in unspecified ankle and joints of unspecified foot Coding Level of Care Code Global (17636) Diagnoses Status post ORIF of fracture of ankle Z98.890; Z87.81
--- OUTSIDE RECORDS SUMMARY | 2025-02-10 12:45 | XMS_ITS | Encounter Summary ---
Author Organization [employer] Address 75 [facility] 7 [place] [address] Care Team Providers Care Instrument Lens Grinder Name Role Phone Diann Ramirez MD Primary Care Provider [phone] Reason for Visit * Reason Onset Date Comments Med Refill 05/31/2024 Encounter Details Date Type Department Care Team (Late st Contact Info) Description 05/31/2024 Telephone [facility] MEDICINE [address] [place] [address] Diann Ramirez MD [address] [place] [address] Med Refill Social History Tobacco Use Types [...] 1 MG tablet To be sent to: [id number] - [place] - 1 [facility] [place] [facility] documented in this encounter Plan of Treatment Upcoming Encounters Date Type Department Care Team (Late st Contact Info) Description 03/21/2025 1:30 PM EDT Telemedicine [facility] MED & PEDS [address] [place] [address] Naomi Reyes RN [address] [place] [address] 05/19/2025 1:00 PM EDT Office Visit [facility] MED & PEDS [address] [place] [address] Diann Ramirez MD [address] [place] [address] documented as of this encounter Visit Diagnoses Not on filedocumented in this encounter Additional Health Concerns Assessment Noted Time PHQ-9 Depression Total Score: 4 03/20/20 24 9:12 AM EDT documented as of this encounter Care Teams Instrument Lens Grinder Relationship Specialty Start Date End Date Diann Ramirez MD [address] [place] [address] PCP - General Internal Medicine 07/16/12 documented as of this encounter
--- OUTSIDE RECORDS SUMMARY | 2025-02-10 12:45 | XMS_ITS | Encounter Summary ---
Author Organization [employer] Address 75 [facility] 7 [place] [address] Care Team Providers Care Panama Hat Blocker Name Role Phone Diann Ramirez MD Primary Care Provider [phone] Reason for Visit * Reason Onset Date Comments Med Refill 07/28/2024 Encounter Details Date Type Department Care Team (Late st Contact Info) Description 07/28/2024 Telephone [facility] MEDICINE [address] [place] [address] Diann Ramirez MD [address] [place], [place] [phone] Med Refill Social History Tobacco Use Types [...] 1 MG tablet To be sent to: [id number] - [place] - [address] [place] [place] [facility] documented in this encounter Plan of Treatment Upcoming Encounters Date Type Department Care Team (Late st Contact Info) Description 03/21/2025 1:30 PM EDT Telemedicine [facility] MED & PEDS [address] [place] [address] Naomi Reyes RN [address] [place] [address] 05/19/2025 1:00 PM EDT Office Visit [facility] MED & PEDS [address] [place] [address] Diann Ramirez MD [address] [place] [address] documented as of this encounter Visit Diagnoses Not on filedocumented in this encounter Additional Health Concerns Assessment Noted Time PHQ-9 Depression Total Score: 4 03/20/20 24 9:12 AM EDT documented as of this encounter Care Teams Panama Hat Blocker Relationship Specialty Start Date End Date Diann Ramirez MD [address] [place] [address] PCP - General Internal Medicine 07/16/12 documented as of this encounter
--- OUTSIDE RECORDS SUMMARY | 2025-02-10 12:45 | XMS_ITS | Encounter Summary ---
Author Organization [employer] Address 75 [facility] 7 [place] [address] Care Team Providers Care Metal Cutter Name Role Phone Diann Ramirez MD Primary Care Provider +1 [phone] Reason for Visit * Reason Onset Date Comments Referral 08/09/2024 Encounter Details Date Type Department Care Team (Late st Contact Info) Description 08/09/2024 Telephone [facility] MEDICINE [address] [place] [address] Diann Ramirez MD [address] [place], [place] [phone] Referral Social History Tobacco Use Types Packs/Day [...] Jimenez RN - 08/14/2024 12:07 PM EDT [employer] message informing pt referral for Neuro was sent to [facility] Neuro and pt should get a call [...] Info) Description 03/21/2025 1:30 PM EDT Telemedicine [facility] MED & PEDS [address] [place] [address] Naomi Reyes RN [address] [place] [address] 05/19/2025 1:00 PM EDT Office Visit [facility] MED [facility] PED[facility] [address] [place] [address] Diann Ramirez MD [address] [place] [address] documented as of this encounter Visit Diagnoses Not on filedocumented in this encounter Additional Health Concerns Assessment Noted Time PHQ-9 Depression Total Score: 4 03/20/20 24 9:12 AM EDT documented as of this encounter Care Teams Metal Cutter Relationship Specialty Start Date End Date Diann Ramirez MD [address] [place] [address] PCP - General Internal Medicine 07/16/12 documented as of this encounter
--- OUTSIDE RECORDS SUMMARY | 2025-02-10 12:45 | XMS_ITS | Encounter Summary ---
Author Organization [employer] Address [address] [place] [address] Care Team Providers Care Fire Alarm Inspector Name Role Phone Diann Ramirez MD Primary Care Provider [phone]- [phone] Reason for Visit * Reason Onset Date Comments Appointment Request 01/06/2023 Encounter Details Date Type Department Care Team (Late st Contact Info) Description 01/06/2023 Telephone [facility] MEDICINE [address] [place] [address] Diann Ramirez MD [address] [place] [address] Appointment Request Social History Tobacco Use Types [...] requesting to r/s appt on 01/06/23 ( GAMBLING MONITOR Televisit ) documented in this encounter Plan of Treatment Upcoming Encounters Date Type Department Care Team (Late st Contact Info) Description 03/21/2025 1:30 PM EDT Telemedicine [facility] MED & PEDS [address] [place] [address] Naomi Reyes, TABATHA [address] [place] [address] 05/19/2025 1:00 PM EDT Office Visit [facility] MED & PEDS [address] [place] [address] Diann Ramirez MD 505 [place] [address] documented as of this encounter Visit Diagnoses Not on filedocumented in this encounter Additional Health Concerns Assessment Noted Time PHQ-9 Depression Total Score: 1 10/31/19 23 3:59 PM EST documented as of this encounter Care Teams Fire Alarm Inspector Relationship Specialty Start Date End Date Diann Ramirez MD [address] [place] [address] PCP - General Internal Medicine 07/16/12 documented as of this encounter
--- OUTSIDE RECORDS SUMMARY | 2025-02-10 12:45 | XMS_ITS | Encounter Summary ---
Author Organization [employer] Address 75 [facility] 7 [place] [address] Care Team Providers Care Mail Reader Name Role Phone Diann Ramirez MD Primary Care Provider +1 [phone] Reason for Visit * Reason Onset Date Comments Appointment Request 06/17/2024 Encounter Details Date Type Department Care Team ([facility] st Contact Info) Description 06/17/2024 Telephone [facility] MEDICINE [address] [place] [address] Diann Ramirez MD [address] [place] [address] Appointment Request Social History Tobacco Use Types [...] would like a sooner appt than what conventional mortgage underwriter offered documented in this encounter Plan of Treatment Upcoming Encounters Date Type Department Care Team (Late st Contact Info) Description 03/21/2025 1:30 PM EDT Telemedicine [facility] MED & PEDS [address] [place] [address] Naomi Reyes RN [address] [place] [address] 05/19/2025 1:00 PM EDT Office Visit [facility] MED & PEDS [address] [place] [address] Diann Ramirez MD [address] [place] [address] documented as of this encounter Visit Diagnoses Not on filedocumented in this encounter Additional Health Concerns Assessment Noted Time PHQ-9 Depression Total Score: 4 03/20/20 24 9:12 AM EDT documented as of this encounter Care Teams Mail Reader Relationship Specialty Start Date End Date Diann Ramirez MD 505 [place] [address] PCP - General Internal Medicine 07/16/12 documented as of this encounter
--- OUTSIDE RECORDS SUMMARY | 2025-02-10 12:45 | XMS_ITS | Encounter Summary ---
Author Organization [employer] Address 75 [facility] 7t [place] [address] Care Team Providers Care Progressive Assembler And Fitter Name Role Phone Diann Ramirez MD Primary Care Provider +1 [phone] Encounter Details Date Type Department Care Team (Late st Contact Info) Description 05/18/2024 Orders Only [facility] MED & PEDS [address] [place], [place] [phone] Provider, MD Shar Social History Tobacco Use [...] [facility] [address] [place] [address] Naomi Reyes RN [address] [place] [address] 05/19/2025 1:00 PM EDT Office Visit [facility] MED & PEDS [address] [place] [address] Diann Ramirez MD 505 [place] [address] documented as of this encounter Procedures Procedure [...] documented as of this encounter Care Teams Progressive Assembler And Fitter Relationship Specialty Start Date End Date Diann Ramirez MD 505 [place] [address] PCP - General Internal Medicine 07/16/12 documented as of this encounter
--- OUTSIDE RECORDS SUMMARY | 2025-02-10 12:46 | XMS_ITS | Clinical Summary ---
Author Organization [facility] Address [address] [place] [address] Phone Care Team Providers Care Earth Science Laboratory Technician Name Role Phone Physician, Pcp Unknown Primary Care Provider Alejandra vailable Allergies No known active allergies Encounters Date Type Department Care Team Description 12/09/2024 2:50 PM EST - 12/09/2024 7:00 PM EST Emergency [facility] Emergency [address] [place] [address] Edinson Hernandez, Leg swelling (Primary [...] Months Insurance MEDICAID - [place] Care Teams Earth Science Laboratory Technician Relationship Specialty Start Date End Date Physician, Pcp Unknown PCP - General 12/09/24
--- OUTSIDE RECORDS SUMMARY | 2025-02-10 12:46 | XMS_ITS | Clinical Summary ---
Author Organization [employer] Address 75 [facility] 7t [place] [address] Care Team Providers Care Box Person Name Role Phone Diann Ramirez MD Primary Care Provider +1- [phone] Allergies Active Allergy Reactions Criticality Noted Date [...] 23 Active ergocalciferol (Vitamin D2) 1.25 MG (79067 UT) capsuleIndicati ons:Vitamin D deficiency Take 1 [...] protective factors. Referral placed sent to [facility] on 07/21 for OP services. [...] intervention , Patient to reach out to [facility] team as needed, Patient to engage [...] protective factors. Referral placed sent to [facility] on 07/21 for OP services. [...] intervention , Patient to reach out to [facility] team as needed, Patient to engage in OP therapy , and Patient to reach out to [facility] as needed Thrombocytopenia 03/20/2024 Assessment & [...] Description 02/08/2025 9:40 AM EDT Office Visit [facility] MED & PEDS [address] [place] [address] Diann Ramirez MD Pain of left calf (Primary Dx); Other chest pain; Hiatal hernia 02/08/2025 Travel 02/04/2025 Telephone [facility] [address] [place] [address] Diann Ramirez MD Nurse Triage 01/24/2025 Refill [facility] MEDICINE [address] [place], [place] [phone] Diann Ramirez MD Anxiety 01/17/2025 Orders Only [facility] [address] [place] [address] Diann Ramirez MD Primary hypertension (Primary Dx) 01/17/2025 Telephone [facility] 505 [facility] [place] [address] Diann Ramirez MD Medication Question 01/14/2025 Refill [facility] 505 [facility] [place] [address] Diann Ramirez MD 01/14/2025 Refill [facility] [address] [place] [address] Diann Ramirez MD 12/31/2024 Population [facility] () Department [address] [place] [id number] Provider, Population Health Generic 12/24/2024 Refill [facility] [address] [place] [address] Naomi Reyes RN Anxiety 12/24/2024 Telephone [facility] [address] [place] [address] Diann Ramirez MD Med Refill 12/20/2024 2:00 PM EST Telemedicine [facility] [address] [place] [address] Naomi Reyes, RN Anxiety; Long-term current use of benzodiazepine 12/20/2024 Travel 11/24/2024 Refill [facility] [address] [place] [address] Diann Ramirez MD Anxiety 11/15/2024 9:15 AM EST Office Visit [facility] 505 [place] [address] Diann Ramirez MD Primary hypertension (Primary Dx); Other closed fracture of distal end of left fibula, initial encounter; Dietary counseling; Exercise counseling; Class 2 severe obesity due to excess calories with serious comorbidity and body mass index (BMI) of 35.0 to 35.9 in adult ([facility]) 11/15/2024 Travel from Last 3 Months Immunizations Name [...] [facility] [address] [place] [address] Naomi Reyes, TABATHA 505 [place] [address] 05/19/2025 1:00 PM EDT Office Visit [facility] [address] [place], [place] [phone] Diann Ramirez MD 505 [place] [address] Health Maintenance Due Date Last Done Comments [...] 11:16 AM EDT Other chest pain XR CHEST 2 VIEWS Routine 02/08/2025 10:4 6 AM EDT Other chest pain XR ANKLE 3+ VIEWS LEFT Routine 11/26/2024 11:03 AM EST FL GUIDANCE IN OR Routine 11/24/2024 2:3 8 PM EST XR ANKLE 3+ VIEWS LEFT Routine 11/15/2024 1:17 PM EST LIPID PANEL, STANDARD Routine 03/11/2024 1:07 [...] 11:16 AM EDT Heart rate 52 bpm. ??[place] 50 degrees. ??Normal sinus rhythm. ??First-degree AV block. ??No signs of left atrial enlargement or right atrial enlargement. ??No sign of hypertrophy. ??No ST elevation or ST depression. ?? Normal T waves. ??EKG without significant abnormalities. us Diann Ramirez MD ECG ORDERABLES Final Resul t * XR Chest 2 Views (02/08/2025 10:46 AM EDT) Anatomical Region Laterality Modality Chest Radiographic Lacey ging 02/08/2025 10:4 6 AM EDT Narrative 02/09/2025 8:43 AM EDT ? [facility] ?[address] ?[place] [address] ?XRay Report ? Signed ? Patient: Luc Erickson ?MR#: [id number] ?? 78 ? : 1980 ?Acct:[id number] ? Age/Sex: 44 / M ?ADM Date: 02/08/25 ? Loc: HO.XRAY ? Attending Dr: Diann Ramirez MD ? Ordering Physician: Diann Ramirez MD ?? Date of Service: 02/08/25 ?? Procedure(s): XR chest 2V ?? Accession Number(s): [id number] ? cc: Diann Ramirez MD ? EXAMINATION: ?? XR CHEST ? CLINICAL INFORMATION: ?? Left sided chest pain ? COMPARISON: ?? August 10, 2024 ? TECHNIQUE: ?? 2 views of the chest were obtained. ? FINDINGS: ?? No consolidation, pleural effusion or pneumothorax. ?? Cardiomediastinal silhouette size is normal. ?? Osseous structures are intact. Mild spondylosis, thoracic spine. ? XR/XR chest 2V ?? IMPRESSION: ?? No acute airspace disease. Stable chest. ? Electronically signed by: ??Billy Mcdonald MD ??02/09/2025 08:40 AM ?? EDT RP ? Dictated By: ?Billy Lama MD ? Signed By: ?<Electronically signed by Billy Mandujano MD in OV> ? 02/09/25 0840 ? DD/ 1046 ? TD/TT: 02/08/25 1118 ? Manager Neonatal: ? Procedure Note Kateryna, Image - 04/23/[address] [address] XRay Report Signed Patient: Luc Erickson JMR#: [id number] 78 : 1980Acct:[id number] Age/Sex: 44 / MADM Date: 02/08/25 Loc: HO.XRAY Attending Dr: Diann Ramirez MD Ordering Physician: Diann Ramirez MD Date of Service: 02/08/25 Procedure(s): XR chest 2V Accession Number(s): [id number] cc: iDann Ramirez MD EXAMINATION: XR CHEST CLINICAL INFORMATION: Left sided chest pain COMPARISON: August 10, 2024 TECHNIQUE: 2 views of the chest were obtained. FINDINGS: No consolidation, pleural effusion or pneumothorax. Cardiomediastinal silhouette size is normal. Osseous structures are intact. Mild spondylosis, thoracic spine. XR/XR chest 2V IMPRESSION: No acute airspace disease. Stable chest. Electronically signed by: Billy Mcdonald MD 02/09/2025 08:40 AM EDT RP Dictated By: Billy Lama MD Signed By: <Electronically signed by Billy Mandujano MDin OV> 02/09/25 0840 DD/ 1046 TD/TT: 02/08/25 1118 Manager Neonatal: us Diann Ramirez MD IMG XR PROCEDURES Final Res ult * XR Ankle 3+ Views Left (11/26/2024 11:03 AM EST) Only the most recent of2 resultswithin the time period is included. Anatomical Region Laterality Modality Lower Extremities, Ankle Left Radiogr aphic Imaging 11/26/2024 11:0 3 AM EST Narrative 11/26/2024 11:36 AM EST ? [place] [facility] ? [address] ?[place] [address] ?XRay Report ? Signed ? Patient: Stopa,Luc J ?MR#: [id number] ?? 78 ? : 1980 ?Acct:[id number] ? Age/Sex: 44 / M ?ADM Date: 11/26/24 ? Loc: HO.HOSX ? Attending Dr: Misha VELASQUEZ ? Ordering Physician: Anna Bennett PA-C ?? Date of Service: 11/26/24 ?? Procedure(s): XR ankle LT min 3V ?? Accession Number(s): [id number] ? cc: Diann Ramirez MD; Anna Bennett [...] DD/ 1103 ? TD/TT: 11/26/24 1112 ? Manager Neonatal: ? Procedure Note Colt Avendaño - 11/26/2024 [facility] [address] [place] [address] [address] [place] [address] XRay Report Signed Patient: Luc Erickson R#: [id number] 78 : 1980Acct:[id number] Age/Sex: 44 / MADM Date: 11/26/24 Loc: IAN Attending Dr: Misha VELASQUEZ Ordering Physician: Anna Bennett PA-C Date of Service: 11/26/24 Procedure(s): XR ankle LT min 3V Accession Number(s): [id number] cc: Diann Ramirez MD; Anna Bennett PA-C [...] 11/26/24 1133 DD/ 1103 TD/TT: 11/26/24 1112 Manager Neonatal: [facility] External Provider IMG XR PROCEDURES Final Result * FL Guidance in OR (11/24/2024 2:38 PM EST) Anatomical Region Laterality Modality X-Ray Angiograph y 11/24/2024 2:38 PM EST Narrative 11/25/2024 8:58 AM EST ? [facility] ?[address] ?[place] [address] ? Fluoroscopy Report ? Signed ? Patient: Stopa,Luc J ?MR#: [id number] ?? 78 ? : 1980 ?Acct:[id number] ? Age/Sex: 44 / M ?ADM Date: 02/05/25 ? Loc: HO.SSS ? Attending Dr: Will Randolph MD ? Ordering Physician: Will Randolph MD ?? Date of Service: 11/24/24 ?? Procedure(s): FL guidance in OR ?? Accession Number(s): [id number] ? cc: Diann Ramirez MD; Will Randolph [...] DD/ 1438 ? TD/TT: 11/24/24 1527 ? Manager Neonatal: ? Procedure Note Kateryna, Image - 11/25/2024 [place] [address] Fluoroscopy Report Signed Patient: Luc Erickson JMR#: [id number] [birth year] : 1980Acct:[id number] Age/Sex: 44 / MADM Date: 11/24/24 Loc: HO.SSS Attending Dr: Will Randolph MD Ordering Physician: Will Randolph MD Date of Service: 11/24/24 Procedure(s): FL guidance in OR Accession Number(s): [id number] cc: Diann Ramirez MD; Will Randolph MD [...] 11/25/24 0856 DD/ 1438 TD/TT: 11/24/24 1527 Manager Neonatal: [facility] External Provider IMG IR PROCEDURES Final Result * (ABNORMAL) Lipid Panel, Standard (03/11/2024 1:07 PM EDT) Triglycerides 40 <150 mg/dL [facility] Comment:Desirable Triglyceri de: less than 150 mg/dLBorderline High Triglyceride 150-199 mg/dLHigh Triglyceride: 200-499 mg/dLVery High Triglyceride: greater than or equal to 5OO mg/dL Cholesterol 141 <200 mg/dL [facility] Comment:Desirable Cholestero l: less than 200 mg/dLBorderline High Cholesterol: 200-239 mg/dLHigh Cholesterol: greater than 239 mg/dL LDL Cholesterol Calculated 93 <100 mg/dL [facility] Comment:Desirable LDL: less than 100 mg/dLNear Optimal/Above Optimal LDL: 110- 129 mg/dLBorderline High LDL: 130-159 mg/dLHigh LDL: 160-189 mg/dLVery High LDL: greater than or equal to 190 mg/dL HDL Cholesterol 40(L) >40 mg/dL [facility] Comment:Desirable HDL: great er than 40 mg/dL Note: This HDL assay may give artificially low results in patients with liver disease. Blood Venous blood specimen / Unknown 03/11/2024 1:07 PM EDT 03/11/2024 2:22 PM EDT us Diann Ramirez MD LAB BLOOD ORDERABLES Final Result [facility] [address] [place] [address] [phone] * HIV AB/AG (08/07/2022 2:03 PM EDT) Pathologist [facility] HIV AB/AG Nonreactive Nonreactive [facility] Comment: HIV-1 p24 Ag and/or [...] detection of this assay. ?? [employer] HIV Ag/Ab Combo assay result and supplemental assay results should be interpreted in conjunction with the patient's clinical presentation, history and other laboratory results. ??If the results are inconsistent with clinical evidence, additional testing is suggested to confirm the result. 08/07/2022 2:03 PM EDT us Tra Linton MD HISTORICAL/NON ORDERAB LE LABS Final Result [facility] * HEPATITIS C AB W/REFL TO HCV RNA, QN, PCR (07/01/2022 10:13 AM EDT) Pathologist [facility] HEPATITIS C ANTIBODY NON-REACT [facility] NON-REACT [facility] INDEX 0.14 <1.00 [facility] Comment: ?? HCV antibody was non-reactive. There is no laboratory ?? evidence of HCV infection. ?? In most cases, no further action is required. However, if recent HCV exposure is suspected, a test for HCV RNA (test code 18320) is suggested. ?? For additional information please refer to http://education.[employer] [facility]/faq/ZIM19s0 (This link is being provided for informational/ educational purposes only.) ?? 07/01/2022 10:1 3 AM EDT Diann Ramirez MD HISTORICAL/NON ORDERABLE LA BS Final Result [facility] [address] [place] [address], from Last 3 Months or Most Recently Relevant to Health Maintenance Insurance [employer] Care Teams Box Person Relationship Specialty Start Date End Date Diann Ramirez MD 505 [facility] [place] [address] PCP - General Internal Medicine 07/16/12
--- OUTSIDE RECORDS SUMMARY | 2025-02-10 12:46 | XMS_ITS | Encounter Summary ---
Author Organization [employer] Address 75 [facility] 7 [place] [address] Care Team Providers Care Embedded Nurse Name Role Phone Diann Ramirez MD Primary Care Provider +1 [phone] Reason for Visit * Reason Onset Date Comments Med Refill 11/25/2022 Encounter Details Date Type Department Care Team (Late st Contact Info) Description 11/25/2022 Telephone [facility] MEDICINE [address] [place] [address] Diann Ramirez MD [address] [place] [address] Med Refill Social History Tobacco Use Types [...] [facility] [address] [place] [address] Naomi Reyes, TABATHA [address] [place] [address] 05/19/2025 1:00 PM EDT Office Visit [facility] [address] [place] [address] Diann Ramirez MD [address] [place] [address] documented as of this encounter Visit Diagnoses Not on filedocumented in this encounter Additional Health Concerns Assessment Noted Time PHQ-9 Depression Total Score: 1 10/31/19 23 3:59 PM EST documented as of this encounter Care Teams Embedded Nurse Relationship Specialty Start Date End Date Diann Ramirez MD [address] [place] [address] PCP - General Internal Medicine 07/16/12 documented as of this encounter
--- OUTSIDE RECORDS SUMMARY | 2025-02-10 12:46 | XMS_ITS | Encounter Summary ---
Author Organization [employer] Address 75 [facility] 7 [place] [address] Care Team Providers Care Dental Scheduling Coordinator Name Role Phone Diann Ramirez MD Primary Care Provider +1 [phone] Reason for Visit * Reason Onset Date Comments Appointment Request 06/11/2024 Encounter Details Date Type Department Care Team ([facility] st Contact Info) Description 06/11/[address] [facility] MEDICINE [address] [place] [address] Diann Ramirez MD [address] [place] [address] Appointment Request Social History Tobacco Use Types [...] Tc from pt calling in regards to DIRECTOR OF SPEECH PATHOLOGY visit from 06/18 that was canceled and is requesting to reschedule. Please contact pt at [phone]. documented in this encounter Plan of Treatment Upcoming Encounters Date Type Department Care Team (Late st Contact Info) Description 03/21/2025 1:30 PM EDT Telemedicine [facility] MED & PEDS [address] [place] [address] Naomi Reyes RN [address] [place] [address] 05/19/2025 1:00 PM EDT Office Visit [facility] MED & PEDS [address] [place] [address] Diann Ramirez MD [address] [place] [address] documented as of this encounter Visit Diagnoses Not on filedocumented in this encounter Additional Health Concerns Assessment Noted Time PHQ-9 Depression Total Score: 4 03/20/20 24 9:12 AM EDT documented as of this encounter Care Teams Dental Scheduling Coordinator Relationship Specialty Start Date End Date Diann Ramirez MD [address] [place] [address] PCP - General Internal Medicine 07/16/12 documented as of this encounter
--- OUTSIDE RECORDS SUMMARY | 2025-02-10 12:46 | XMS_ITS | Encounter Summary ---
Author Organization [employer] Address [address] [facility] 7[address] [place] [address] Care Team Providers Care Manager Analytical Name Role Phone Diann Ramirez MD Primary Care Provider +1 [phone] Encounter Details Date Type Department Care Team [...] [facility] [address] [place] [address] Naomi Reyes RN [address] [place] [address] 05/19/2025 1:00 PM EDT Office Visit [facility] MED & PEDS [address] [place] [address] Diann Ramirez MD [address] [place] [address] documented as of this encounter Visit Diagnoses Not on filedocumented in this encounter Additional Health Concerns Assessment Noted Time PHQ-9 Depression Total Score: 4 03/20/20 24 9:12 AM EDT documented as of this encounter Care Teams Manager Analytical Relationship Specialty Start Date End Date Diann Ramirez MD [address] [place] [address] PCP - General Internal Medicine 07/16/12 documented as of this encounter
--- OUTSIDE RECORDS SUMMARY | 2025-02-10 12:46 | XMS_ITS | Encounter Summary ---
Author Organization [employer] Address [address] [facility] 7 [place] [address] Care Team Providers Care Director Digital Sales Name Role Phone Diann Ramirez MD Primary Care Provider [phone] Reason for Visit * Reason Onset Date Comments Med Refill 09/02/2024 Encounter Details Date Type Department Care Team (Late st Contact Info) Description 09/02/2024 Telephone [facility] MEDICINE [address] [place] [address] Diann Ramirez MD [address] [place] [address] Med Refill Social History Tobacco Use Types [...] 1 MG tablet To be sent to: [id number] - [place] - 1 [facility] [place] [facility] AT [facility] [place] & TAMI documented in this encounter Plan of Treatment Upcoming Encounters Date Type Department Care Team (Late st Contact Info) Description 03/21/2025 1:30 PM EDT Telemedicine [facility] MED & PEDS [address] [place] [address] Naomi Reyes RN [address] [place] [address] 05/19/2025 1:00 PM EDT Office Visit [facility] MED & PEDS [address] [place] [address] Diann Ramirez MD [address] [place] [address] documented as of this encounter Visit Diagnoses Not on filedocumented in this encounter Additional Health Concerns Assessment Noted Time PHQ-9 Depression Total Score: 4 03/20/20 24 9:12 AM EDT documented as of this encounter Care Teams Director Digital Sales Relationship Specialty Start Date End Date Diann Ramirez MD [address] [place] [address] PCP - General Internal Medicine 07/16/12 documented as of this encounter
--- OUTSIDE RECORDS SUMMARY | 2025-02-10 12:46 | XMS_ITS | Encounter Summary ---
Author Organization [employer] Address [address] [facility] 7t [place] [address] Care Team Providers Care Sample Maker Hand Name Role Phone Diann Ramirez MD Primary Care Provider [phone] Encounter Details Date Type Department Care Team (Late Contact Info) Description 10/18/2022 Orders Only [facility] MEDICINE [address] [place] [address] Diann Ramirez MD [address] [place], [place] [phone] Acute cough; Bronchospasm Social History Tobacco Use [...] Info) Description 03/21/2025 1:30 PM EDT Telemedicine [facility] MED & PEDS [address] [place], [place] [phone] Namoi Reyes, TABATHA 505 [place], [place] [phone] 05/19/2025 1:00 PM EDT Office Visit [facility] MED & PEDS [address] [place] [address] Diann Ramirez MD [address] [place] [address] documented as of this encounter Visit Diagnoses Diagnosis Acute cough Bronchospasm Acute bronchospasm documented in this encounter Care Teams Sample Maker Hand Relationship Specialty Start Date End Date Diann Ramirez MD [address] [place] [address] PCP - General Internal Medicine 07/16/12 documented as of this encounter
--- OUTSIDE RECORDS SUMMARY | 2025-02-10 12:46 | XMS_ITS | Encounter Summary ---
Author Organization [employer] Address [address] [facility] 7t [place] [address] Care Team Providers Care Seat Builder Name Role Phone Diann Ramirez MD Primary Care Provider [phone] Encounter Details Date Type Department Care Team (Late st Contact Info) Description 10/01/2024 Orders Only [facility] [place] [facility] MED & PEDS [address] [place], [place] [phone] Diann Ramirez MD [address] [place] [address] Hiatal hernia (Primary Dx) Social History Tobacco [...] Description 03/21/2025 1:30 PM EDT Telemedicine [facility] MED & PEDS [address] [place] [address] Naomi Reyes RN 505 [place] [address] 05/19/2025 1:00 PM EDT Office Visit [facility] MED & PEDS [address] [place] [address] Diann Ramirez MD [address] [place] [address] documented as of this encounter Visit Diagnoses Diagnosis Hiatal hernia- Primary Diaphragmatic hernia without mention of obstruction or gangrene documented in this encounter Additional Health Concerns Assessment Noted Time PHQ-9 Depression Total Score: 4 03/20/20 24 9:12 AM EDT documented as of this encounter Care Teams Seat Builder Relationship Specialty Start Date End Date Diann Ramirez MD [address] [place] [address] PCP - General Internal Medicine 07/16/12 documented as of this encounter
--- OUTSIDE RECORDS SUMMARY | 2025-02-10 12:46 | XMS_ITS | Encounter Summary ---
Author Organization [employer] Address [address] [facility] 7 [place] [address] Care Team Providers Care Coreroom Foundry Laborer Name Role Phone Diann Ramirez MD Primary Care Provider [phone] Reason for Visit * Reason Onset Date Comments Appointment Request 04/28/2024 Encounter Details Date Type Department Care Team (Late st Contact Info) Description 04/28/2024 Telephone [facility] MEDICINE [address] [place] [address] Diann Ramirez MD [address] [place] [address] Appointment Request Social History Tobacco Use Types [...] won't be able to make it today's CONSUMER ATTORNEY visit due to not feeling well and is requesting to reschedule. Please contact pt at [phone]. documented in this encounter Plan of Treatment Upcoming Encounters Date Type Department Care Team (Late st Contact Info) Description 03/21/2025 1:30 PM EDT Telemedicine [facility] MED & PEDS [address] [place] [address] Naomi Reyes, TABATHA 505 [place] [address] 05/19/2025 1:00 PM EDT Office Visit [facility] MED & PEDS [address] [place] [address] Diann Ramirez MD [address] [place] [address] documented as of this encounter Visit Diagnoses Not on filedocumented in this encounter Additional Health Concerns Assessment Noted Time PHQ-9 Depression Total Score: 4 03/20/20 24 9:12 AM EDT documented as of this encounter Care Teams Coreroom Foundry Laborer Relationship Specialty Start Date End Date Diann Ramirez MD [address] [place] [address] PCP - General Internal Medicine 07/16/12 documented as of this encounter
--- OUTSIDE RECORDS SUMMARY | 2025-02-10 12:46 | XMS_ITS | Encounter Summary ---
Author Organization [employer] Address [address] [facility] 7 [place] [address] Care Team Providers Care Cold Working Supervisor Name Role Phone Diann Ramirez MD Primary Care Provider [phone] Reason for Visit * Reason Onset Date Comments Appointment Request 01/13/2024 Encounter Details Date Type Department Care Team (Late st Contact Info) Description 01/13/2024 Telephone [facility] MEDICINE [address] [place] [address] Diann Ramirez MD [address] [place] [address] Appointment Request Social History Tobacco Use Types [...] 03/21/2025 1:30 PM EDT Telemedicine [facility] MED & PEDS [address] [place] [address] Naomi Reyes, TABATHA 505 [place] [address] 05/19/2025 1:00 PM EDT Office Visit [facility] MED & PEDS [address] [place] [address] Diann Ramirez MD [address] [place] [address] documented as of this encounter Visit Diagnoses Not on filedocumented in this encounter Additional Health Concerns Assessment Noted Time PHQ-9 Depression Total Score: 1 10/31/19 23 3:59 PM EST documented as of this encounter Care Teams Cold Working Supervisor Relationship Specialty Start Date End Date Diann Ramirez MD [address] [place] [address] PCP - General Internal Medicine 07/16/12 documented as of this encounter
--- OUTSIDE RECORDS SUMMARY | 2025-02-10 12:46 | XMS_ITS | Encounter Summary ---
Author Organization [employer] Address [address] [place] [address] 7t [place] [address] Care Team Providers Care Director Safety Name Role Phone Diann Ramirez MD Primary Care Provider [phone] Reason for Referral * Consultation (Routine) - Closed Specialty Diagnoses / Procedures Referred By Dania blackman Referred To Contact Hematology and Oncology Diagnoses Microcytic anemia Bicytopenia Diann Ramirez MD [address] [place] [address] Phone: tel: fax: Cornell Culver MD [address] [place] [address] Phone: tel: fax: Referral ID Status Reason Start Date Expiration Date V isits Requested Visits Authorized [id number] Closed Specialty Services Required 03/16/2024 03/16/2025 1 1 * Imaging (Routine) - Closed Specialty Diagnoses / Procedures Referred By Contcary t Referred To Contact Diagnoses Numbness of right foot Numbness of left foot Procedures EMG Diann Ramirez MD [address] [place] [address] Phone: tel: fax: [address] Phone: tel: fax: Referral ID Status Reason Start Date Expiration Date Visits Re quested Visits Authorized [id number] Closed 03/16/2024 03/16/2025 1 1 Encounter Details Date Type Department Care Team (Late Contact Info) Description 03/12/2024 Orders Only [facility] MED & PEDS [address] [place] [address] Diann Ramirez MD [address] [place] [address] Microcytic anemia (Primary Dx); Vitamin D deficiency; [...] Info) Description 03/21/2025 1:30 PM EDT Telemedicine [facility] MED & PEDS [address] [place] [address] Naomi Reyes, RN 505 [place] [address] 05/19/2025 1:00 PM EDT Office Visit [facility] MED & PEDS [address] [place] [address] Diann Ramirez MD [address] [place] [address] Scheduled Orders Name Type Priority Associated Diagnoses [...] EDT Narrative 03/24/2024 3:35 PM EDT ? [facility] ?[address] ?[place] [address] ? CT Scan Report ? Signed ? Patient: Stopa,Luc J ?MR#: [id number] ?? 78 ? : 1980 ?Acct:[id number] ? Age/Sex: 43 / M ?ADM Date: 03/24/24 ? Loc: HO.ED ? Attending Dr: ? Ordering Physician: Phani Gamino DO ?? Date of Service: 03/24/24 ?? Procedure(s): CT head/brain wo IV con ?? Accession Number(s): [id number] ? cc: Diann Ramirez MD; Phani Gamino [...] 1531 ? DD/ 1423 ? TD/TT: ? Veneer Patcher: CARMEN ? Procedure Note Donotuseinterpreter, Image - 03/24/[address] [address] [address] Scan Report Signed Patient: Luc Erickson JMR#: [id number] [birth year] : 1980Acct:[id number] Age/Sex: 43 / MADM Date: 03/24/24 Loc: HO.ED Attending Dr: Ordering Physician: Phani Gamino DO Date of Service: 03/24/24 Procedure(s): CT head/brain wo IV con Accession Number(s): [id number] cc: Diann Ramirez MD; Phani Gamino DO [...] in OV> 03/24/24 1531 DD/ 1423 TD/TT: Veneer Patcher: CARMEN [facility] External Provider IMG CT PROCEDURES Final Result * XR Chest 2 Views (03/24/2024 2:00 PM EDT) Anatomical Region Laterality Modality Chest Radiographic Lacey ging 03/24/2024 2:00 PM EDT Narrative 03/24/2024 3:11 PM EDT ? [facility] ?[address] ?[place] [address] ?XRay Report ? Signed ? Patient: Luc Erickson ?MR#: [id number] ?? 78 ? : 1980 ?Acct:[id number] ? Age/Sex: 43 / M ?ADM Date: 03/24/24 ? Loc: HO.ED ? Attending Dr: ? Ordering Physician: Phani Gamino DO ?? Date of Service: 03/24/24 ?? Procedure(s): XR chest 2V ?? Accession Number(s): [id number] ? cc: Diann Ramirez MD; Phani Gamino [...] 1507 ? DD/ 1400 ? TD/TT: ? Veneer Patcher: ? Procedure Note Colt Avendaño - 03/24/2024 [facility] [address] [place] [address] XRay Report Signed Patient: Luc Erickson JMR#: [id number] [birth year] : 1980Acct:[id number] Age/Sex: 43 / MADM Date: 03/24/24 Loc: HO.ED Attending Dr: Ordering Physician: Phani Gamino DO Date of Service: 03/24/24 Procedure(s): XR chest 2V Accession Number(s): [id number] cc: Diann Ramirez MD; Phani Gamino DO [...] in OV> 03/24/24 1507 DD/ 1400 TD/TT: Veneer Patcher: [facility] External Provider IMG XR PROCEDURES Final Result * Tick-borne Disease, Acute Molecular Panel (03/24/2024 12:15 PM EDT) Babesia microti DNA, Real Time PCR NOT DETECTED NOT DETECTED [facility] Comment:This test was develo ped and its analytical performancecharacteristics have been determined by [employer]. It has not been cleared or approved by theFDA. This assay has been validated pursuant to the CLIAregulations and is used for clinical purposes.THIS TEST WAS PERFORMED AT:[address] [place] [id number] MEMBRENO MD Ehrlichia chaffensis DNA Real Time PCR NOT DETECTED NOT DETECTED [facility] Comment:This test was develo ped and its analytical performancecharacteristics have been determined by [employer]. It has not been cleared or approved by theFDA. This assay has been validated pursuant to the CLIAregulations and is used for clinical purposes.THIS TEST WAS PERFORMED AT:[facility] [address] [phone] MEMBRENO MD Anaplasma phagocytophilum DNA, QL Real Time PCR NOT DETECTED NOT DETECTED [facility] Comment:This test was develo ped and its analytical performancecharacteristics have been determined by [employer]. It has not been cleared or approved by theFDA. This assay has been validated pursuant to the CLIAregulations and is used for clinical purposes. Borrelia Species DNA, Ql Real Time PCR NOT DETECTED NOT DETECTED [facility] Comment:This test was develo ped and its analytical performancecharacteristics have been determined by [employer]. It has not been cleared or approved by theFDA. This assay has been validated pursuant to the CLIAregulations and is used for clinical purposes.For additional information, please refer [email or web address].Meizu/faq/xpg127(This link is being provided for informational/educational purposes only.)THIS TEST WAS PERFORMED AT:[facility] [address] [phone] MEMBRENO MD Borrelia Miyamotoi DNA, Ql Real Time PCR NOT DETECTED NOT DETECTED [facility] Comment:This test detects bu t does not distinguish betweenB. miyamotoi and B. hermsii.This test was developed and its analytical performancecharacteristics have been determined by [employer]. It has not been cleared or approved by theFDA. This assay has been validated pursuant to the CLIAregulations and is used for clinical purposes.THIS TEST WAS PERFORMED AT:[facility] [address] [phone] MEMBRENO MD Comment SEE NOTE [facility] Comment:A negative result do es not exclude Borrelia infectionas the concentration of the organism in blood may be lowor non-existent in patients with Lyme disease, and maydepend on timing of specimen collection from onset ofsymptoms. Clinical correlation is recommended andadditional studies such as serologic testing may beindicated.THIS TEST WAS PERFORMED AT:[facility] [address] [phone] MEMBRENO MD 03/24/2024 12:1 5 PM EDT 03/24/2024 12:19 PM EDT us Generic External Data Provider LAB BLOOD ORDERAB LES Final Result Performing Organization Address [facility] Co de Phone Number [facility] [address] [place] [phone] * Slide Review (03/24/2024 12:15 PM EDT) Slide Review VERIFIED [facility] 03/24/2024 12:1 5 PM EDT 03/24/2024 12:19 PM EDT Generic External Data Provider LAB BLOOD ORDERAB LES Final Result Performing Organization Address [facility] Phone Number [facility] [address] [place] [phone] * (ABNORMAL) CBC auto differential (03/24/2024 12:15 PM EDT) White Blood Count 8.3 4.8 - 10.8 X10*3/uL [facility] Red Blood Count 4.86 4.60 - 5.80 X10*6/uL [facility] Hemoglobin 14.0 14.0 - 18.0 g/dl [facility] Hematocrit 41.0(L) 42.0 - 52.0 % [facility] Mean Corpuscular Volume 84.4 80.0 - 98.0 fL [facility] Mean Corpuscular Hemoglobin 28.8 27.0 - 33.0 pg [facility] Mean Corpuscular HGB Conc 34.1 31.0 - 36.0 g/dl [facility] Red Cell Distribution Width 12.2 11.0 - 16.0 % [facility] Platelet Count 122(L) 160 - 400 X10*3/uL [facility] Comment:Confirmed by smear. Mean Platelet Volume 10.8 9.4 - 12.4 fL [facility] Neutrophils Percent Auto 62.4 45 - 73 % [facility] Imm Gran Pct Auto 0.7(H) 0.0 - 0.4 % [facility] Lymphocytes Percent Auto 27.4 20 - 40 % [facility] Monocytes Percent Auto 5.6 2 - 11 % [facility] Eosinophils Percent Auto 3.3 0 - 4 % [facility] Basophils Percent Auto 0.6 0 - 2 % [facility] NRBC Pct Auto 0.0 0.0 - 0.2 /100WBC [facility] Neutrophils Absolute Auto 5.2 2.0 - 8.3 x10*3/uL [facility] Imm Gran Abs Auto 0.06(H) 0.00 - 0.03 X10*3/uL [facility] Lymphocytes Absolute Auto 2.3 1.2 - 4.9 X10*3/uL [facility] Monocytes Absolute Auto 0.5 0.1 - 1.2 X10*3/uL [facility] Eosinophils Absolute Auto 0.3 0.0 - 0.4 X10*3/uL [facility] Basophils Absolute Auto 0.1 0.0 - 0.2 X10*3/uL [facility] NRBC Abs Auto 0.000 0.0 - 0.012 X10*3/uL [facility] 03/24/2024 12:1 5 PM EDT 03/24/2024 12:19 PM EDT us Generic External Data Provider LAB BLOOD ORDERAB LES Edited Result - Final [facility] [address] [place] [phone] * TSH with Reflex to Free T4 (03/24/2024 12:15 PM EDT) TSH reflex Free T4 1.53 0.32 - 4.0 uIU/mL [facility] 03/24/2024 12:1 5 PM EDT 03/24/2024 12:19 PM EDT Generic External Data Provider LAB BLOOD ORDERAB LES Final Result Performing Organization Address [facility] Co de Phone Number [facility] [address] [place] [phone] * Ferritin (03/24/2024 12:15 PM EDT) Ferritin 109 20 - 250 ng/mL [facility] 03/24/2024 12:1 5 PM EDT 03/24/2024 12:19 PM EDT Generic External Data Provider LAB BLOOD ORDERAB LES Final Result Performing Organization Address [facility] de Phone Number [facility] [address] [place] [phone] * High Sensitivity Troponin I (03/24/2024 12:15 PM EDT) TROPONIN I HIGH SENSITIVITY <2.7 <3.5 - 35.0 ng/L [facility] Comment:The Cha high sens itivity Troponin-I results should beused in conjunction with other diagnostic information suchas ECG, clinical observations and information, and patientsymptoms to aid in the diagnosis of [place]. 03/24/2024 12:1 5 PM EDT 03/24/2024 12:19 PM EDT Generic External Data Provider LAB BLOOD ORDERAB LES Final Result Performing Organization Address [facility] Co de Phone Number [facility] [address] [place] [phone] * Magnesium (03/24/2024 12:15 PM EDT) Magnesium 1.9 1.6 - 2.6 mg/dL [facility] 03/24/2024 12:1 5 PM EDT 03/24/2024 12:19 PM EDT us Generic External Data Provider LAB BLOOD ORDERAB LES Final Result [facility] [address] [place] [address] [phone] * (ABNORMAL) Comprehensive Metabolic Panel (03/24/2024 12:15 PM EDT) Sodium 140 135 - 145 mmol/L [facility] Potassium 3.6 3.3 - 5.1 mmol/L [facility] Chloride 106 96 - 108 mmol/L [facility] Carbon Dioxide 27 22 - 29 mmol/L [facility] Anion Gap 11(L) 12 - 20 [facility] Urea Nitrogen (BUN) 8(L) 9 - 16 mg/dL [facility] Creatinine, Serum 0.84 0.5 - 1.4 mg/dL [facility] Creatinine Clr Calc Pharmacy 145.2 [facility] Comment:eGFR (calculated fro m the MDRD study equation) and eCrCl(calculated from the Cockcroft-Gault equation) are based ondifferent parameters and may not yield comparable results.If eCrCl result is absurd, please check patient'sheight/weight. Estimated Glomerular Filt Rate >60 [facility] Comment:NOTE: For -Am erican individuals, multiply the result by 1.210.Chronic Kidney Disease: Estimated GFR < 60 mL/min/1.41f7Oyyfat Kidney Disease: Estimated GFR < 15 mL/min/1.73m2 Glucose 113 60 - 115 mg/dL [facility] Calcium 9.3 8.4 - 10.2 mg/dL [facility] Bilirubin, Total 0.3 0.0 - 1.0 mg/dL [facility] Aspartate Amino Transferase 15 5 - 37 U/L [facility] Alanine Aminotransferase 13 0 - 40 U/L [facility] Total Protein 7.5 6.5 - 8.0 g/dL [facility] Albumin Level 4.3 3.5 - 5.0 g/dL [facility] Alkaline Phosphatase 79 39 - 117 U/L [facility] 03/24/2024 12:1 5 PM EDT 03/24/2024 12:19 PM EDT Generic External Data Provider LAB BLOOD ORDERAB LES Final Result Performing Organization Address [facility] Co de Phone Number [facility] [address] [place] [phone] [phone] * Prothrombin Time-INR (03/24/2024 12:15 PM EDT) Prothrombin Time 12.4 11.1 - 13.3 SEC [facility] INTERNATIONAL NORM RATIO 1.0 0.9 - 1.1 [facility] Comment:INTERNATIONAL NORMAL IZED RATIO (INR) [...] ORDERAB LES Final Result Performing Organization Address [facility] Co de Phone Number [facility] [address] [place] [phone] [phone] * (ABNORMAL) Reticulocyte Count (03/16/2024 11:56 AM EDT) Reticulocytes Absolute 0.127(H) 0.026 - 0.095 X10*6/uL [facility] Immature Retic Fraction 15.3(H) 2.3 - 13.4 % [facility] Retic HGB Equivalent 33.6 30.0 - 35.0 pg [facility] Reticulocyte Percent 2.8(H) 0.5 - 1.8 % [facility] Blood Venous blood specimen / Unknown 03/16/2024 11:56 AM EDT 03/16/2024 2:40 PM EDT us Diann Ramirez MD LAB BLOOD ORDERABLES Final Result Performing Organization Address [facility] Co de Phone Number [facility] [address] [place] [phone] * Ferritin (03/16/2024 11:56 AM EDT) Ferritin 118 20 - 250 ng/mL [facility] Blood Venous blood specimen / Unknown 03/16/2024 11:56 AM EDT 03/16/2024 2:42 PM EDT us Diann Ramirez MD LAB BLOOD ORDERABLES Final Result Performing Organization Address [facility] Co de Phone Number [facility] [address] [place] [phone] * Iron And Total Iron Binding Capacity (03/16/2024 11:56 AM EDT) Iron 55 45 - 160 mcg/dL [facility] Total Iron Binding Capacity 261 228 - 428 mcg/dL [facility] Percent Iron Saturation 21 15 - 50 % [facility] Unsaturated Iron Binding 206 ug/dL [facility] Blood Venous blood specimen / Unknown 03/16/2024 11:56 AM EDT 03/16/2024 2:42 PM EDT us Diann Ramirez MD LAB BLOOD ORDERABLES Final Result Performing Organization Address [facility] Co de Phone Number [facility] [address] [place] [phone] documented in this encounter Visit Diagnoses Diagnosis Microcytic anemia- Primary Unspecified iron deficiency anemia Vitamin D deficiency Primary hypertension Unspecified essential hypertension Numbness of right foot Numbness of left foot Bicytopenia documented in this encounter Additional Health Concerns Assessment Noted Time PHQ-9 Depression Total Score: 1 10/31/19 23 3:59 PM EST documented as of this encounter Care Teams Director Safety Relationship Specialty Start Date End Date Diann Ramirez MD [address] [place] [address] PCP - General Internal Medicine 07/16/12 documented as of this encounter
--- OUTSIDE RECORDS SUMMARY | 2025-02-10 12:46 | XMS_ITS | Encounter Summary ---
Author Organization [employer] Address [address] [facility] 7 [place] [address] Care Team Providers Care Dynamo Repairer Name Role Phone Diann Ramirez MD Primary Care Provider [phone] Reason for Visit * Reason Onset Date Comments Referral 11/21/2022 Encounter Details Date Type Department Care Team (Late st Contact Info) Description 11/21/2022 Telephone [facility] [address] [place] [address] Diann Ramirez MD [address] [place] [address] Referral Social History Tobacco Use Types Packs/Day [...] by Dr Linton Please contact pt at [phone] Please see above message. Thanks * Telephone Encounter - Mario Tavaresos - 11/21/2022 2:42 PM EST Tc from pt requesting a new referral for neurologist states don't want to be seen by Dr Linton Please contact pt at [phone] documented in this encounter Plan of Treatment Upcoming Encounters Date Type Department Care Team (Late st Contact Info) Description 03/21/2025 1:30 PM EDT Telemedicine [facility] MED & PEDS [address] [place] [address] Naomi Reyes RN [address] [place] [address] 05/19/2025 1:00 PM EDT Office Visit [facility] [address] [place] [address] Diann Ramirez MD [address] [place] [address] documented as of this encounter Visit Diagnoses Diagnosis Chronic cluster headache, not intractable- Primary documented in this encounter Additional Health Concerns Assessment Noted Time PHQ-9 Depression Total Score: 1 10/31/19 23 3:59 PM EST documented as of this encounter Care Teams Dynamo Repairer Relationship Specialty Start Date End Date Diann Ramirez MD [address] [place] [address] PCP - General Internal Medicine 07/16/12 documented as of this encounter
--- OUTSIDE RECORDS SUMMARY | 2025-02-10 12:46 | XMS_ITS | Encounter Summary ---
Author Organization [employer] Address [address] [place] [address] 7 [place] [address] Care Team Providers Care Faceter Name Role Phone Diann Ramirez MD Primary Care Provider [phone] Reason for Referral * Imaging (Routine) - Authorized Specialty Diagnoses / Procedures Referred By Contac t Referred To Contact Radiology Diagnoses Pain of left calf Procedures US DOPPLER EXT LOWER VENOUS LEFT Diann Ramirez MD [address] [place] [address] Phone: tel: fax: [address] Phone: tel: fax: Referral ID Status Reason Start Date Expiration Date V isits Requested Visits Authorized [id number] Authorized 02/08/2025 02/08/2026 1 1 Reason for Visit * Reason Comments left calf pain Chest Pain Encounter Details Date Type Department Care Team (Late st Contact Info) Description 02/08/2025 9:40 AM EDT Office Visit [facility] MED & PEDS [address] [place], [place] [phone] Diann Ramirez MD [address] [place] [address] Pain of left calf (Primary Dx); Other [...] Bandages & Supports (Futuro Restoring Dress Socks) [facility] Fut[employer] restoring medium compression socks To wear daily prior to getting out of bed ergocalciferol (Vitamin D2) 1.25 MG (49002 UT) capsule Take 1 capsule (1.25 mg) [...] Upcoming Encounters Date Type Department Care Team ([facility] st Contact Info) Description 03/21/2025 1:30 PM EDT Telemedicine [facility] MED & PEDS [address] [place] [address] Naomi Reyes, RN [address] [place] [address] 05/19/2025 1:00 PM EDT Office Visit [facility] MED & PEDS [address] [place] [address] Diann Ramirez MD [address] [place] [address] Scheduled Orders Name Type Priority Associated Diagnoses Orde r Schedule US DOPPLER EXT LOWER VENOUS LEFT Imaging Routine Pain of left calf Expected: 02/08/2025, Expires: 02/08/2026 documented as of this encounter Procedures Procedure Name Priority Date/Time Associated Diagnosis Comments ECG 12-LEAD Routine 02/08/2025 11:16 AM EDT Other chest pain XR CHEST 2 VIEWS Routine 02/08/2025 10:4 6 AM EDT Other chest pain documented in this encounter Results * ECG 12 lead (02/08/2025 11:16 AM EDT) Narrative Diann Ramirez MD - 02/08/2025 11:16 AM EDT Heart rate 52 bpm. ??[place] 50 degrees. ??Normal sinus rhythm. ??First-degree AV [...] EDT Narrative 02/09/2025 8:43 AM EDT ? [facility] ?[address] ?[place] [address] ?XRay Report ? Signed ? Patient: Stopa,Luc J ?MR#: [id number] ?? 78 ? : 1980 ?Acct:[id number] ? Age/Sex: 44 / M ?ADM Date: 04/22/25 ? Loc: HO.XRAY ? Attending Dr: Diann Ramirez MD ? Ordering Physician: Diann Ramirez MD ?? Date of Service: 02/08/25 ?? Procedure(s): XR chest 2V ?? Accession Number(s): [id number] ? cc: Diann Ramirez MD ? EXAMINATION: [...] 1046 ? TD/TT: 02/08/25 1118 ? Manager Crisis: ? Procedure Note Kateryna, Image - 02/09/2025 [place] [address] XRay Report Signed Patient: Luc Erickson JMR#: [id number] 78 : 1980Acct:[id number] Age/Sex: 44 / MADM Date: 02/08/25 Loc: [facility] Attending Dr: Diann Ramirez MD Ordering Physician: Diann Ramirez MD Date of Service: 02/08/25 Procedure(s): XR chest 2V Accession Number(s): [id number] cc: Diann Ramirez MD EXAMINATION: XR CHEST CLINICAL INFORMATION: [...] 0840 DD/ 1046 TD/TT: 02/08/25 1118 Manager Crisis: Diann Ramirez MD IMG XR PROCEDURES Final Res ult documented in this encounter Visit Diagnoses Diagnosis Pain of left calf- Primary Other chest pain Hiatal hernia Diaphragmatic hernia without mention of obstruction or gangrene documented in this encounter Additional Health Concerns Assessment Noted Time PHQ-9 Depression Total Score: 4 03/20/20 24 9:12 AM EDT documented as of this encounter Care Teams Faceter Relationship Specialty Start Date End Date Diann Ramirez MD [address] [place] [address] PCP - General Internal Medicine 07/16/12 documented as of this encounter
--- OUTSIDE RECORDS SUMMARY | 2025-02-10 12:46 | XMS_ITS | Encounter Summary ---
Author Organization [employer] Address 75 [facility] 7 [place] [address] Care Team Providers Care Reporting Process Consultant Name Role Phone Diann Ramirez MD Primary Care Provider [phone] Reason for Visit * Reason Onset Date Comments Medication Question 01/17/2025 Encounter Details Date Type Department Care Team ([facility] st Contact Info) Description 01/17/2025 Telephone [facility] MED & PEDS [address] [place] [address] Diann Ramirez MD [address] [place] [address] Medication Question Social History Tobacco Use Types [...] mg keeps being sent. Contact pt at [phone] * Telephone Encounter - Perri Moulton - 01/17/2025 9:37 AM EDT Tc from pt requesting a call back regarding atenolol (Tenormin) 50 MG tablet. Pt stated its supposed to be 25mg 90 day supply due to insurance coverage. Contact pt at [phone] documented in this encounter Plan of Treatment Upcoming Encounters Date Type Department Care Team (Late st Contact Info) Description 03/21/2025 1:30 PM EDT Telemedicine [facility] MED & PEDS [address] [place] [address] Naomi Reyes, RN [address] [place] [address] 05/19/2025 1:00 PM EDT Office Visit [facility] PEDS [address] [place] [address] Diann Ramirez MD [address] [place] [address] documented as of this encounter Visit Diagnoses Not on filedocumented in this encounter Additional Health Concerns Assessment Noted Time PHQ-9 Depression Total Score: 4 03/20/20 24 9:12 AM EDT documented as of this encounter Care Teams Reporting Process Consultant Relationship Specialty Start Date End Date Diann Ramirez MD [address] [place] [address] PCP - General Internal Medicine 07/16/12 documented as of this encounter
--- OUTSIDE RECORDS SUMMARY | 2025-02-10 12:46 | XMS_ITS | Encounter Summary ---
Author Organization [employer] Address [address] [facility] 7 [place] [address] Care Team Providers Care Manager Graphic Name Role Phone Diann Ramirez MD Primary Care Provider [phone] Reason for Visit * Reason Comments Med Refill Encounter Details Date Type Department Care Team ([facility] st Contact Info) Description 01/14/2025 Refill [facility] MED & PEDS [address] [place], [place] [phone] Diann Ramirez MD [address] [place] [address] Social History Tobacco Use Types Packs/Day Years [...] Info) Description 03/21/2025 1:30 PM EDT Telemedicine [facility] MED & PEDS [address] [place] [address] Naomi Reyes RN [address] [place] [address] 05/19/2025 1:00 PM EDT Office Visit [facility] MED & PEDS [address] [place] [address] Diann Ramirez MD [address] [place] [address] documented as of this encounter Visit Diagnoses Not on filedocumented in this encounter Additional Health Concerns Assessment Noted Time PHQ-9 Depression Total Score: 4 03/20/20 24 9:12 AM EDT documented as of this encounter Care Teams Manager Graphic Relationship Specialty Start Date End Date Diann Ramirez MD [address] [place] [address] PCP - General Internal Medicine 07/16/12 documented as of this encounter
--- OUTSIDE RECORDS SUMMARY | 2025-02-10 12:46 | XMS_ITS | Encounter Summary ---
Author Organization [email or web address] Address [address] [place] [address] 7 [place] [address] Care Team Providers Care Chef Under Name Role Phone Diann Ramirez MD Primary Care Provider [phone] Reason for Referral * Consultation (Routine) - Closed Specialty Diagnoses / Procedures Referred By Contcary t Referred To Contact Behavioral Health Diagnoses Anxiety Diann Ramirez MD [address] [place] [address] Phone: tel: fax: Referral ID Status Reason Start Date Expiration Date V isits Requested Visits Authorized [id number] Closed Specialty Services Required 03/30/2024 03/30/2025 1 1 Encounter Details Date Type Department Care Team ([facility] Contact Info) Description 03/30/2024 Orders Only [facility] CHC MED & PEDS [address] [place] [address] Diann Ramirez MD [address] [place] [address] Anxiety (Primary Dx) Social History Tobacco Use [...] 03/21/2025 1:30 PM EDT Telemedicine [facility] MED & PEDS [address] [place] [address] Naomi Reyes RN [address] [place] [address] 05/19/2025 1:00 PM EDT Office Visit [facility] MED & PEDS [address] [place] [address] Diann Ramirez MD [address] [place] [address] Scheduled Referrals Name Type Priority Associated Diagnoses Order Schedule Referral to Behavioral Health Outpatient Referral Routine Anxiety Expected: 03/30/2024 (Approximate), Expires: 03/30/2025 documented as of this encounter Visit Diagnoses Diagnosis Anxiety- Primary Anxiety state, unspecified documented in this encounter Additional Health Concerns Assessment Noted Time PHQ-9 Depression Total Score: 4 03/20/20 24 9:12 AM EDT documented as of this encounter Care Teams Chef Under Relationship Specialty Start Date End Date Diann Ramirez MD [address] [place] [address] PCP - General Internal Medicine 07/16/12 documented as of this encounter
--- OUTSIDE RECORDS SUMMARY | 2025-02-10 12:46 | XMS_ITS | Encounter Summary ---
Author Organization [employer] Address [address] [facility] 7t [place] [address] Care Team Providers Care News Cameraman Name Role Phone Diann Ramirez MD Primary Care Provider [phone] Encounter Details Date Type Department Care Team (Late st Contact Info) Description 01/17/2025 Orders Only [facility] MED & PEDS [address] [place], [place] [phone] Diann Ramirez MD [address] [place] [address] Primary hypertension (Primary Dx) Social History Tobacco [...] Encounters Date Type Department Care Team ([facility] st Contact Info) Description 03/21/2025 1:30 PM EDT Telemedicine [facility] MED & PEDS [address] [place] [address] Naomi Reyes RN [address] [place] [address] 05/19/2025 1:00 PM EDT Office Visit [facility] MED & PEDS [address] [place] [address] Diann Ramirez MD [address] [place] [address] documented as of this encounter Visit Diagnoses Diagnosis Primary hypertension- Primary Unspecified essential hypertension documented in this encounter Additional Health Concerns Assessment Noted Time PHQ-9 Depression Total Score: 4 03/20/20 24 9:12 AM EDT documented as of this encounter Care Teams News Cameraman Relationship Specialty Start Date End Date Diann Ramirez MD [address] [place] [address] PCP - General Internal Medicine 07/16/12 documented as of this encounter
== END 2025-02-10 11:26 | disposition home or self-care (01) ==
LOC: HO.HOS 10:52
PROVIDERS: Visit Provider Physician Assistant
DX: Z98.890 Other specified postprocedural states (principal); Z87.81 Personal history of (healed) traumatic fracture
CPT/HCPCS: 99024

== ENCOUNTER → 2025-02-10 10:55 | Outpatient (BNV) | payer MEDICAID, SELFPAY | PROVIDERS: Visit Provider Radiology Diagnostic Radiology | DX: M25.579 Pain in unspecified ankle and joints of unspecified foot (principal) | CPT/HCPCS: 73610 ==

== ENCOUNTER 2025-02-15 13:22 | Outpatient (REF) | payer MEDICAID, SELFPAY ==
--- NOTE | ~2025-02-15 | US_ITS ---
EXAMINATION: US TRIPLEX LOWER EXTREMITY, LEFT CLINICAL INFORMATION: Pain, left lower extremity COMPARISON: None available. TECHNIQUE: Color-flow triplex imaging with spectral analysis and compression Doppler were performed on the left lower extremity. FINDINGS: Respiratory variation, normal compression and augmented flow are noted throughout the interrogated common femoral vein, superficial femoral vein, profunda femoral vein, popliteal vein and midcalf peroneal and posterior tibial venous segments.. There is no Doshi's cyst. US/US venous duplex LE LT IMPRESSION: No acute deep venous thrombosis involving the left lower extremity. Negative for DVT. Electronically signed by: Billy Mcdonald MD 02/16/2025 03:25 PM EDT
--- OUTSIDE RECORDS SUMMARY | 2025-02-15 15:26 | XMS_ITS | Encounter Summary ---
Author Organization [employer] Address [address] [place] [address] 7 [place] [address] Care Team Providers Care Cut Lace Machine Operator Name Role Phone Diann Ramirez MD Primary Care Provider +1 [phone] Reason for Referral * Consultation (Routine) - Closed Specialty Diagnoses / Procedures Referred By Contcary t Referred To Contact Behavioral Health Diagnoses Anxiety Diann Ramirez MD [address] [place] [address] Phone: tel: fax: Referral ID Status Reason Start Date Expiration Date V isits Requested Visits Authorized [id number] Closed Specialty Services Required 03/30/2024 03/30/2025 1 1 Encounter Details Date Type Department Care Team ([facility] Contact Info) Description 03/30/2024 Orders Only [facility] CH[facility] MED & PEDS [address] [place] [address] Diann Ramirez MD [address] [place] [address] Anxiety (Primary Dx) Social History Tobacco Use [...] [facility] MED & PEDS [address] [place] [address] Naomi Reyes RN [address] [place] [address] 05/19/2025 1:00 PM EDT Office Visit [facility] MED & PEDS [address] [place] [address] Diann Ramirez MD [address] [place] [address] Scheduled Referrals Name Type Priority Associated Diagnoses Order Schedule Referral to Behavioral Health Outpatient Referral Routine Anxiety Expected: 03/30/2024 (Approximate), Expires: 03/30/2025 documented as of this encounter Visit Diagnoses Diagnosis Anxiety- Primary Anxiety state, unspecified documented in this encounter Additional Health Concerns Assessment Noted Time PHQ-9 Depression Total Score: 4 03/20/20 24 9:12 AM EDT documented as of this encounter Care Teams Cut Lace Machine Operator Relationship Specialty Start Date End Date Diann Ramirez MD [address] [place] [address] PCP - General Internal Medicine 07/16/12 documented as of this encounter
--- OUTSIDE RECORDS SUMMARY | 2025-02-15 15:26 | XMS_ITS | Encounter Summary ---
Author Organization [employer] Address 75 [facility] 7 [place] [address] Care Team Providers Care Enlisted Advisor Name Role Phone Diann Ramirez MD Primary Care Provider +1 [phone] Reason for Visit * Reason Onset Date Comments Appointment Request 04/28/2024 Encounter Details Date Type Department Care Team (Late st Contact Info) Description 04/28/2024 Telephone [facility] MEDICINE [address] [place] [address] Diann Ramirez MD 505 [place] [address] Appointment Request Social History Tobacco Use Types [...] won't be able to make it today's SPINNER IRON visit due to not feeling well and is requesting to reschedule. Please contact pt at [phone]. documented in this encounter Plan of Treatment Upcoming Encounters Date Type Department Care Team (Late st Contact Info) Description 03/21/2025 1:30 PM EDT Telemedicine [facility] MED & PEDS [address] [place] [address] Naomi Reyes, TABATHA [address] [place] [address] 05/19/2025 1:00 PM EDT Office Visit [facility] MED & PEDS [address] [place] [address] Diann Ramirez MD [address] [place] [address] documented as of this encounter Visit Diagnoses Not on filedocumented in this encounter Additional Health Concerns Assessment Noted Time PHQ-9 Depression Total Score: 4 03/20/20 24 9:12 AM EDT documented as of this encounter Care Teams Enlisted Advisor Relationship Specialty Start Date End Date Diann Ramirez MD [address] [place] [address] PCP - General Internal Medicine 07/16/12 documented as of this encounter
--- OUTSIDE RECORDS SUMMARY | 2025-02-15 15:26 | XMS_ITS | Encounter Summary ---
Author Organization [employer] Address 75 [facility] 7 [place] [address] Care Team Providers Care Data Scientist Name Role Phone Diann Ramirez MD Primary Care Provider +1 [phone] Reason for Visit * Reason Onset Date Comments Appointment Request 06/11/2024 Encounter Details Date Type Department Care Team ([facility] st Contact Info) Description 06/11/2024 Telephone [facility] MEDICINE [address] [place] [address] Diann Ramirez MD [address] [place] [address] Appointment Request Social History Tobacco Use Types [...] Tc from pt 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 Please contact pt at [phone]. documented in this encounter Plan of Treatment Upcoming Encounters Date Type Department Care Team (Late st Contact Info) Description 03/21/2025 1:30 PM EDT Telemedicine [facility] MED & PEDS [address] [place] [address] Naomi Reyes RN [address] [place] [address] 05/19/2025 1:00 PM EDT Office Visit [facility] MED & PEDS [address] [place] [address] Diann Ramirez MD [address] [place] [address] documented as of this encounter Visit Diagnoses Not on filedocumented in this encounter Additional Health Concerns Assessment Noted Time PHQ-9 Depression Total Score: 4 03/20/20 24 9:12 AM EDT documented as of this encounter Care Teams Data Scientist Relationship Specialty Start Date End Date Diann Ramirez MD [address] [place] [address] PCP - General Internal Medicine 07/16/12 documented as of this encounter
--- OUTSIDE RECORDS SUMMARY | 2025-02-15 15:26 | XMS_ITS | Encounter Summary ---
Author Organization [employer] Address 75 [facility] 7 [place] [address] Care Team Providers Care Well Tester Name Role Phone Diann Ramirez MD Primary Care Provider +1 [phone] Reason for Visit * Reason Onset Date Comments Medication Question 01/17/2025 Encounter Details Date Type Department Care Team ([facility] st Contact Info) Description 01/17/2025 Telephone [facility] MED & PEDS [address] [place] [address] Diann Ramirez MD [address] [place] [address] Medication Question Social History Tobacco Use Types [...] mg keeps being sent. Contact pt at [phone] * Telephone Encounter - Perri Moulton - 01/17/2025 9:37 AM EDT Tc from pt requesting a call back regarding atenolol (Tenormin) 50 MG tablet. Pt stated its supposed to be 25mg 90 day supply due to insurance coverage. Contact pt at [phone] documented in this encounter Plan of Treatment Upcoming Encounters Date Type Department Care Team (Late st Contact Info) Description 03/21/2025 1:30 PM EDT Telemedicine [facility] MED & PEDS [address] [place] [address] Naomi Reyes, RN [address] [place] [address] 05/19/2025 1:00 PM EDT Office Visit [facility]EDS [address] [place] [address] Diann Ramirez MD [address] [place] [address] documented as of this encounter Visit Diagnoses Not on filedocumented in this encounter Additional Health Concerns Assessment Noted Time PHQ-9 Depression Total Score: 4 03/20/20 24 9:12 AM EDT documented as of this encounter Care Teams Well Tester Relationship Specialty Start Date End Date Diann Ramirez MD [address] [place] [address] PCP - General Internal Medicine 07/16/12 documented as of this encounter
--- OUTSIDE RECORDS SUMMARY | 2025-02-15 15:26 | XMS_ITS | Encounter Summary ---
Author Organization [employer] Address 75 [facility] 7 [place] [address] Care Team Providers Care Assembler Deck And Hull Name Role Phone Diann Ramirez MD Primary Care Provider +1 [phone] Reason for Visit * Reason Onset Date Comments US DOPPLER ORDER 02/10/2025 Encounter Details Date Type Department Care Team (Late st Contact Info) Description 02/10/2025 Telephone [facility] [address] [place] [address] Diann Ramirez MD [address] [place] [address] US DOPPLER ORDER Social History Tobacco Use [...] [facility] [address] [place] [address] Naomi Reyes RN 505 [place] [address] 05/19/2025 1:00 PM EDT Office Visit [facility] MED & PEDS [address] [place] [address] Diann Ramirez MD [address] [place] [address] documented as of this encounter Visit Diagnoses Not on filedocumented in this encounter Additional Health Concerns Assessment Noted Time PHQ-9 Depression Total Score: 4 03/20/20 24 9:12 AM EDT documented as of this encounter Care Teams Assembler Deck And Hull Relationship Specialty Start Date End Date Diann Ramirez MD [address] [place] [address] PCP - General Internal Medicine 07/16/12 documented as of this encounter
--- OUTSIDE RECORDS SUMMARY | 2025-02-15 15:26 | XMS_ITS | Encounter Summary ---
Author Organization [employer] Address 75 [facility] 7 [place] [address] Care Team Providers Care Canvas Baster Jumpbasting Name Role Phone Diann Ramirez MD Primary Care Provider [phone] Reason for Visit * Reason Onset Date Comments Referral 08/09/2024 Encounter Details Date Type Department Care Team (Late st Contact Info) Description 08/09/2024 Telephone [facility] MEDICINE [address] [place] [address] Diann Ramirez MD [address] [place], [place] [phone] Referral Social History Tobacco Use Types Packs/Day Years Used Date Smoking Tobacco: Never Smokeless Tobacco: Never Depression Answer Date Recorded Patient Health Questionnaire-9 Score 4 03/20/2024 Patient Health Questionnaire-9 Score 4 03/20/2024 Last PHQ-9: Questionnaire Data Not on file 0 03/20/2024 Housing Stability Answer Date Recorded What is your housing situation today? I have vdihi shane 03/20/[address] you [...] Jimenez RN - 08/14/2024 12:07 PM EDT e-Go aeroplanest message informing pt referral for Neuro was sent to [facility] Neuro and pt should get a call [...] Info) Description 03/21/2025 1:30 PM EDT Telemedicine [facility] [address] [place] [address] Naomi Reyes RN [address] [place] [address] 05/19/2025 1:00 PM EDT Office Visit [facility] [address] [place] [address] Diann Ramirez MD [address] [place] [address] documented as of this encounter Visit Diagnoses Not on filedocumented in this encounter Additional Health Concerns Assessment Noted Time PHQ-9 Depression Total Score: 4 03/20/20 24 9:12 AM EDT documented as of this encounter Care Teams Canvas Baster Jumpbasting Relationship Specialty Start Date End Date Diann Ramirez MD [address] [place] [address] PCP - General Internal Medicine 07/16/12 documented as of this encounter
--- OUTSIDE RECORDS SUMMARY | 2025-02-15 15:26 | XMS_ITS | Encounter Summary ---
Author Organization [employer] Address [address] [place] [address] 7t [place] [address] Care Team Providers Care Pediatrics Physician Name Role Phone Diann Ramirez MD Primary Care Provider [phone] Reason for Referral * Consultation (Routine) - Closed Specialty Diagnoses / Procedures Referred By Dania blackman Referred To Contact Hematology and Oncology Diagnoses Microcytic anemia Bicytopenia Diann Ramirez MD [address] [place] [address] Phone: tel: fax: Cornell Culver MD [address] [place] [phone] Phone: tel: fax: Referral ID Status Reason Start Date Expiration Date V isits Requested Visits Authorized [id number] Closed Specialty Services Required 03/16/2024 03/16/2025 1 1 * Imaging (Routine) - Closed Specialty Diagnoses / Procedures Referred By Contcary t Referred To Contact Diagnoses Numbness of right foot Numbness of left foot Procedures EMG Diann Ramirez MD [address] [place] [address] Phone: tel: fax: [address] Phone: tel: fax: Referral ID Status Reason Start Date Expiration Date Visits Re quested Visits Authorized [id number] Closed 03/16/2024 03/16/2025 1 1 Encounter Details Date Type Department Care Team (Late Contact Info) Description 03/12/2024 Orders Only [facility] [address] [place] [address] Diann Ramirez MD [address] [place] [address] Microcytic anemia (Primary Dx); Vitamin D deficiency; [...] [facility] [address] [place] [address] Naomi Reyes, RN [address] [place] [address] 05/19/2025 1:00 PM EDT Office Visit [facility] [address] [place] [address] Diann Ramirez MD [address] [place] [address] Scheduled Orders Name Type Priority Associated Diagnoses [...] EDT Narrative 03/24/2024 3:35 PM EDT ? [facility] ?[address] ?[place] [address] ? [place] Scan Report ? Signed ? Patient: Stopa,Luc J ?MR#: [id number] ?? 78 ? : 1980 ?Acct:[id number] ? Age/Sex: 43 / M ?ADM Date: 03/24/24 ? Loc: HO.ED ? Attending Dr: ? Ordering Physician: Phani Gamino DO ?? Date of Service: 03/24/24 ?? Procedure(s): CT head/brain wo IV con ?? Accession Number(s): [id number] ? cc: Diann Ramirez MD; Phani Gamino [...] DD/ 1423 ? TD/TT: ? Director Of Corporate Marketing: CARMEN ? Procedure Note Donotuseinterpreter, Image - 03/24/[address] [address] [address] Scan Report Signed Patient: Luc Erickson JMR#: [id number] [birth year] : 1980Acct:[id number] Age/Sex: 43 / MADM Date: 03/24/24 Loc: HO.ED Attending Dr: Ordering Physician: Phani Gamino DO Date of Service: 03/24/24 Procedure(s): CT head/brain wo IV con Accession Number(s): [id number] cc: Diann Ramirez MD; Phani Gamino DO [...] 03/24/24 1531 DD/ 1423 TD/TT: Director Of Corporate Marketing: CARMEN [facility] External Provider IMG CT PROCEDURES Final Result * XR Chest 2 Views (03/24/2024 2:00 PM EDT) Anatomical Region Laterality Modality Chest Radiographic Lacey ging 03/24/2024 2:00 PM EDT Narrative 03/24/2024 3:11 PM EDT ? [facility] ?[address] ?[place] [address] ?XRay Report ? Signed ? Patient: Luc Erickson ?MR#: [id number] ?? 78 ? : 1980 ?Acct:[id number] ? Age/Sex: 43 / M ?ADM Date: 03/24/24 ? Loc: HO.ED ? Attending Dr: ? Ordering Physician: Phani Gamino DO ?? Date of Service: 03/24/24 ?? Procedure(s): XR chest 2V ?? Accession Number(s): [id number] ? cc: Diann Ramirez MD; Phani Gamino [...] DD/ 1400 ? TD/TT: ? Director Of Corporate Marketing: ? Procedure Note Colt Avendaño - 03/24/2024 [facility] [address] [place] [address] XRay Report Signed Patient: Luc Erickson JMR#: [id number] [birth year] : 1980Acct:[id number] Age/Sex: 43 / MADM Date: 03/24/24 Loc: HO.ED Attending Dr: Ordering Physician: Phani Gamino DO Date of Service: 03/24/24 Procedure(s): XR chest 2V Accession Number(s): [id number] cc: Diann Ramirez MD; Phani Gamino DO [...] 03/24/24 1507 DD/ 1400 TD/TT: Director Of Corporate Marketing: [facility] External Provider IMG XR PROCEDURES Final Result * Tick-borne Disease, Acute Molecular Panel (03/24/2024 12:15 PM EDT) Babesia microti DNA, Real Time PCR NOT DETECTED NOT DETECTED [facility] Comment:This test was develo ped and its analytical performancecharacteristics have been determined by [employer]. It has not been cleared or approved by theFDA. This assay has been validated pursuant to the CLIAregulations and is used for clinical purposes.THIS TEST WAS PERFORMED AT:[employer] [place] [phone] MEMBRENO MD Ehrlichia chaffensis DNA Real Time PCR NOT DETECTED NOT DETECTED [facility] Comment:This test was develo ped and its analytical performancecharacteristics have been determined by [facility]. It has not been cleared or approved by theFDA. This assay has been validated pursuant to the CLIAregulations and is used for clinical purposes.THIS TEST WAS PERFORMED AT:[facility] [address] [phone] MEMBRENO MD Anaplasma phagocytophilum DNA, QL Real Time PCR NOT DETECTED NOT DETECTED [facility] Comment:This test was develo ped and its analytical performancecharacteristics have been determined by [facility]. It has not been cleared or approved by theFDA. This assay has been validated pursuant to the CLIAregulations and is used for clinical purposes. Borrelia Species DNA, Ql Real Time PCR NOT DETECTED NOT DETECTED [facility] Comment:This test was develo ped and its analytical performancecharacteristics have been determined by [facility]. It has not been cleared or approved by theFDA. This assay has been validated pursuant to the CLIAregulations and is used for clinical purposes.For additional information, please refer totps://education.[employer]/faq/[email or web address](This link is being provided for informational/educational purposes only.)THIS TEST WAS PERFORMED AT:[facility] [address] [phone] MEMBRENO MD Borrelia Miyamotoi DNA, Ql Real Time PCR NOT DETECTED NOT DETECTED [facility] Comment:This test detects bu t does not distinguish betweenB. miyamotoi and B. hermsii.This test was developed and its analytical performancecharacteristics have been determined by [facility]. It has not been cleared or approved by theFDA. This assay has been validated pursuant to the CLIAregulations and is used for clinical purposes.THIS TEST WAS PERFORMED AT:[facility] [address] [phone] MEMBRENO MD Comment SEE NOTE [facility] Comment:A negative result do es not exclude Borrelia infectionas the concentration of the organism in blood may be lowor non-existent in patients with Lyme disease, and maydepend on timing of specimen collection from onset ofsymptoms. Clinical correlation is recommended andadditional studies such as serologic testing may beindicated.THIS TEST WAS PERFORMED AT:[facility] [address] [phone] MEMBRENO MD 03/24/2024 12:1 5 PM EDT 03/24/2024 12:19 PM EDT us Generic External Data Provider LAB BLOOD ORDERAB LES Final Result Performing Organization Address [facility] Co de Phone Number [facility] [address] [place] [phone] * Slide Review (03/24/2024 12:15 PM EDT) Slide Review VERIFIED [facility] 03/24/2024 12:1 5 PM EDT 03/24/2024 12:19 PM EDT Generic External Data Provider LAB BLOOD ORDERAB LES Final Result Performing Organization Address [facility] Phone Number [facility] [address] [place] [phone] * (ABNORMAL) CBC auto differential (03/24/2024 12:15 PM EDT) White Blood Count 8.3 4.8 - 10.8 X10*3/uL [facility] Red Blood Count 4.86 4.60 - 5.80 X10*6/uL [facility] Hemoglobin 14.0 14.0 - 18.0 g/dl [facility] Hematocrit 41.0(L) 42.0 - 52.0 % [facility] Mean Corpuscular Volume 84.4 80.0 - 98.0 fL [facility] Mean Corpuscular Hemoglobin 28.8 27.0 - 33.0 pg [facility] Mean Corpuscular HGB Conc 34.1 31.0 - 36.0 g/dl [facility] Red Cell Distribution Width 12.2 11.0 - 16.0 % [facility] Platelet Count 122(L) 160 - 400 X10*3/uL [facility] Comment:Confirmed by smear. Mean Platelet Volume 10.8 9.4 - 12.4 fL [facility] Neutrophils Percent Auto 62.4 45 - 73 % [facility] Imm Gran Pct Auto 0.7(H) 0.0 - 0.4 % [facility] Lymphocytes Percent Auto 27.4 20 - 40 % [facility] Monocytes Percent Auto 5.6 2 - 11 % [facility] Eosinophils Percent Auto 3.3 0 - 4 % [facility] Basophils Percent Auto 0.6 0 - 2 % [facility] NRBC Pct Auto 0.0 0.0 - 0.2 /100WBC [facility] Neutrophils Absolute Auto 5.2 2.0 - 8.3 x10*3/uL [facility] Imm Gran Abs Auto 0.06(H) 0.00 - 0.03 X10*3/uL [facility] Lymphocytes Absolute Auto 2.3 1.2 - 4.9 X10*3/uL [facility] Monocytes Absolute Auto 0.5 0.1 - 1.2 X10*3/uL [facility] Eosinophils Absolute Auto 0.3 0.0 - 0.4 X10*3/uL [facility] Basophils Absolute Auto 0.1 0.0 - 0.2 X10*3/uL [facility] NRBC Abs Auto 0.000 0.0 - 0.012 X10*3/uL [facility] 03/24/2024 12:1 5 PM EDT 03/24/2024 12:19 PM EDT us Generic External Data Provider LAB BLOOD ORDERAB LES Edited Result - Final [facility] [address] [place] [phone] * TSH with Reflex to Free T4 (03/24/2024 12:15 PM EDT) TSH reflex Free T4 1.53 0.32 - 4.0 uIU/mL [facility] 03/24/2024 12:1 5 PM EDT 03/24/2024 12:19 PM EDT Generic External Data Provider LAB BLOOD ORDERAB LES Final Result Performing Organization Address [facility] Co de Phone Number [facility] [address] [place] [phone] * Ferritin (03/24/2024 12:15 PM EDT) Ferritin 109 20 - 250 ng/mL [facility] 03/24/2024 12:1 5 PM EDT 03/24/2024 12:19 PM EDT Generic External Data Provider LAB BLOOD ORDERAB LES Final Result Performing Organization Address [facility] de Phone Number [facility] [address] [place] [phone] * High Sensitivity Troponin I (03/24/2024 12:15 PM EDT) TROPONIN I HIGH SENSITIVITY <2.7 <3.5 - 35.0 ng/L [facility] Comment:The Cha high sens itivity Troponin-I results should beused in conjunction with other diagnostic information suchas ECG, clinical observations and information, and patientsymptoms to aid in the diagnosis of [place]. 03/24/2024 12:1 5 PM EDT 03/24/2024 12:19 PM EDT Generic External Data Provider LAB BLOOD ORDERAB LES Final Result Performing Organization Address [facility] Co de Phone Number [facility] [address] [place] [phone] * Magnesium (03/24/2024 12:15 PM EDT) Magnesium 1.9 1.6 - 2.6 mg/dL [facility] 03/24/2024 12:1 5 PM EDT 03/24/2024 12:19 PM EDT us Generic External Data Provider LAB BLOOD ORDERAB LES Final Result [facility] [address] [place] [phone] * (ABNORMAL) Comprehensive Metabolic Panel (03/24/2024 12:15 PM EDT) Sodium 140 135 - 145 mmol/L [facility] Potassium 3.6 3.3 - 5.1 mmol/L [facility] Chloride 106 96 - 108 mmol/L [facility] Carbon Dioxide 27 22 - 29 mmol/L [facility] Anion Gap 11(L) 12 - 20 [facility] Urea Nitrogen (BUN) 8(L) 9 - 16 mg/dL [facility] Creatinine, Serum 0.84 0.5 - 1.4 mg/dL [facility] Creatinine Clr Calc Pharmacy 145.2 [facility] Comment:eGFR (calculated fro m the MDRD study equation) and eCrCl(calculated from the Cockcroft-Gault equation) are based ondifferent parameters and may not yield comparable results.If eCrCl result is absurd, please check patient'sheight/weight. Estimated Glomerular Filt Rate >60 [facility] Comment:NOTE: For -Am erican individuals, multiply the result by 1.210.Chronic Kidney Disease: Estimated GFR < 60 mL/min/1.91k1Nvsnhm Kidney Disease: Estimated GFR < 15 mL/min/1.73m2 Glucose 113 60 - 115 mg/dL [facility] Calcium 9.3 8.4 - 10.2 mg/dL [facility] Bilirubin, Total 0.3 0.0 - 1.0 mg/dL [facility] Aspartate Amino Transferase 15 5 - 37 U/L [facility] Alanine Aminotransferase 13 0 - 40 U/L [facility] Total Protein 7.5 6.5 - 8.0 g/dL [facility] Albumin Level 4.3 3.5 - 5.0 g/dL [facility] Alkaline Phosphatase 79 39 - 117 U/L [facility] 03/24/2024 12:1 5 PM EDT 03/24/2024 12:19 PM EDT Generic External Data Provider LAB BLOOD ORDERAB LES Final Result Performing Organization Address [facility] Co de Phone Number [facility] [address] [place] [phone] * Prothrombin Time-INR (03/24/2024 12:15 PM EDT) Prothrombin Time 12.4 11.1 - 13.3 SEC [facility] INTERNATIONAL NORM RATIO 1.0 0.9 - 1.1 [facility] Comment:INTERNATIONAL NORMAL IZED RATIO (INR) [...] ORDERAB LES Final Result Performing Organization Address [facility] Co de Phone Number [facility] [address] [place] [phone] * (ABNORMAL) Reticulocyte Count (03/16/2024 11:56 AM EDT) Reticulocytes Absolute 0.127(H) 0.026 - 0.095 X10*6/uL [facility] Immature Retic Fraction 15.3(H) 2.3 - 13.4 % [facility] Retic HGB Equivalent 33.6 30.0 - 35.0 pg [facility] Reticulocyte Percent 2.8(H) 0.5 - 1.8 % [facility] Blood Venous blood specimen / Unknown 03/16/2024 11:56 AM EDT 03/16/2024 2:40 PM EDT us Diann Ramirez MD LAB BLOOD ORDERABLES Final Result Performing Organization Address [facility] Co de Phone Number [facility] [address] [place] [phone] * Ferritin (03/16/2024 11:56 AM EDT) Ferritin 118 20 - 250 ng/mL [facility] Blood Venous blood specimen / Unknown 03/16/2024 11:56 AM EDT 03/16/2024 2:42 PM EDT us Diann Ramirez MD LAB BLOOD ORDERABLES Final Result Performing Organization Address [facility] Co de Phone Number [facility] [address] [place] [phone] * Iron And Total Iron Binding Capacity (03/16/2024 11:56 AM EDT) Iron 55 45 - 160 mcg/dL [facility] Total Iron Binding Capacity 261 228 - 428 mcg/dL [facility] Percent Iron Saturation 21 15 - 50 % [facility] Unsaturated Iron Binding 206 ug/dL [facility] Blood Venous blood specimen / Unknown 03/16/2024 11:56 AM EDT 03/16/2024 2:42 PM EDT us Diann Ramirez MD LAB BLOOD ORDERABLES Final Result Performing Organization Address [facility] Co de Phone Number [facility] [address] [place] [phone] documented in this encounter Visit Diagnoses Diagnosis Microcytic anemia- Primary Unspecified iron deficiency anemia Vitamin D deficiency Primary hypertension Unspecified essential hypertension Numbness of right foot Numbness of left foot Bicytopenia documented in this encounter Additional Health Concerns Assessment Noted Time PHQ-9 Depression Total Score: 1 10/31/19 23 3:59 PM EST documented as of this encounter Care Teams Pediatrics Physician Relationship Specialty Start Date End Date Diann Ramirez MD [address] [place] [address] PCP - General Internal Medicine 07/16/12 documented as of this encounter
--- OUTSIDE RECORDS SUMMARY | 2025-02-15 15:26 | XMS_ITS | Encounter Summary ---
Author Organization [employer] Address [address] [facility] 7t [place] [address] Care Team Providers Care Butcher Helper Name Role Phone Diann Ramirez MD Primary Care Provider [phone] Encounter Details Date Type Department Care Team (Late st Contact Info) Description 01/17/2025 Orders Only [facility] [address] [place], [place] [phone] Diann Ramirez MD [address] [place] [address] Primary hypertension (Primary Dx) Social History Tobacco [...] [facility] [address] [place] [address] Naomi Reyes RN [address] [place] [address] 05/19/2025 1:00 PM EDT Office Visit [facility] [address] [place] [address] Diann Ramirez MD [address] [place] [address] documented as of this encounter Visit Diagnoses Diagnosis Primary hypertension- Primary Unspecified essential hypertension documented in this encounter Additional Health Concerns Assessment Noted Time PHQ-9 Depression Total Score: 4 03/20/20 24 9:12 AM EDT documented as of this encounter Care Teams Butcher Helper Relationship Specialty Start Date End Date Diann Ramirez MD [address] [place] [address] PCP - General Internal Medicine 07/16/12 documented as of this encounter
--- OUTSIDE RECORDS SUMMARY | 2025-02-15 15:26 | XMS_ITS | Encounter Summary ---
Author Organization [employer] Address [address] [facility] 7t [place] [address] Care Team Providers Care Assembler Ping Pong Table Name Role Phone Diann Ramirez MD Primary Care Provider [phone] Encounter Details Date Type Department Care Team (Late Contact Info) Description 10/18/2022 Orders Only [facility] MEDICINE [address] [place] [address] Diann Ramirez MD [address] [place], [place] [phone] Acute cough; Bronchospasm Social History Tobacco Use [...] Info) Description 03/21/2025 1:30 PM EDT Telemedicine [facility] [address] [place], [place] [phone] Naomi Reyes, TABATHA [address] [place], [place] [phone] 05/19/2025 1:00 PM EDT Office Visit [facility] [address] [place] [address] Diann Ramirez MD [address] [place] [address] documented as of this encounter Visit Diagnoses Diagnosis Acute cough Bronchospasm Acute bronchospasm documented in this encounter Care Teams Assembler Ping Pong Table Relationship Specialty Start Date End Date Diann Ramirez MD [address] [place] [address] PCP - General Internal Medicine 07/16/12 documented as of this encounter
--- OUTSIDE RECORDS SUMMARY | 2025-02-15 15:26 | XMS_ITS | Encounter Summary ---
Author Organization [employer] Address [address] [facility] 7 [place] [address] Care Team Providers Care Interlibrary Loan Specialist Name Role Phone Diann Ramirez MD Primary Care Provider [phone] Reason for Visit * Reason Onset Date Comments Appointment Request 01/06/2023 Encounter Details Date Type Department Care Team (Late st Contact Info) Description 01/06/2023 Telephone [facility] MEDICINE [address] [place] [address] Diann Ramirez MD [address] [place] [address] Appointment Request Social History Tobacco Use Types [...] requesting to r/s appt on 01/06/23 ( CLAIMS SERVICE ADJUSTOR Televisit ) documented in this encounter Plan of Treatment Upcoming Encounters Date Type Department Care Team (Late st Contact Info) Description 03/21/2025 1:30 PM EDT Telemedicine [facility] [address] [place] [address] Naomi Reyes, TABATHA [address] [place] [address] 05/19/2025 1:00 PM EDT Office Visit [facility] [address] [place] [address] Diann Ramirez MD [address] [place] [address] documented as of this encounter Visit Diagnoses Not on filedocumented in this encounter Additional Health Concerns Assessment Noted Time PHQ-9 Depression Total Score: 1 10/31/19 23 3:59 PM EST documented as of this encounter Care Teams Interlibrary Loan Specialist Relationship Specialty Start Date End Date Diann Ramirez MD [address] [place] [address] PCP - General Internal Medicine 07/16/12 documented as of this encounter
--- OUTSIDE RECORDS SUMMARY | 2025-02-15 15:26 | XMS_ITS | Encounter Summary ---
Author Organization [employer] Address [address] [facility] 7t [place] [address] Care Team Providers Care Mixer Blender Name Role Phone Diann Ramirez MD Primary Care Provider [phone] Encounter Details Date Type Department Care Team (Late st Contact Info) Description 10/01/2024 Orders Only [facility] [address] [place], [place] [phone] Diann Ramirez MD [address] [place] [address] Hiatal hernia (Primary Dx) Social History Tobacco [...] Info) Description 03/21/2025 1:30 PM EDT Telemedicine [facility] MED [facility] PEDS [address] [place] [address] Naomi Reyes RN [address] [place] [address] 05/19/2025 1:00 PM EDT Office Visit [facility] PED[facility] [address] [place] [address] Diann Ramirez MD [address] [place] [address] documented as of this encounter Visit Diagnoses Diagnosis Hiatal hernia- Primary Diaphragmatic hernia without mention of obstruction or gangrene documented in this encounter Additional Health Concerns Assessment Noted Time PHQ-9 Depression Total Score: 4 03/20/20 24 9:12 AM EDT documented as of this encounter Care Teams Mixer Blender Relationship Specialty Start Date End Date Diann Ramirez MD [address] [place] [address] PCP - General Internal Medicine 07/16/12 documented as of this encounter
--- OUTSIDE RECORDS SUMMARY | 2025-02-15 15:26 | XMS_ITS | Encounter Summary ---
Author Organization [employer] Address [address] [facility] 7 [place] [address] Care Team Providers Care Manager Mechanical Maintenance Name Role Phone Diann Ramirez MD Primary Care Provider +1 [phone] Reason for Visit * Reason Comments Med Refill Encounter Details Date Type Department Care Team ([facility] st Contact Info) Description 01/14/2025 Refill [facility] MED & PEDS [address] [place], [place] [phone] Diann Ramirez MD 505 [place] [address] Social History Tobacco Use Types Packs/Day Years [...] Description 03/21/2025 1:30 PM EDT Telemedicine [facility] MED & PEDS [address] [place] [address] Naomi Reyes RN 505 [place] [address] 05/19/2025 1:00 PM EDT Office Visit [facility] MED & PEDS [address] [place] [address] Diann Ramirez MD 505 [place] [address] documented as of this encounter Visit Diagnoses Not on filedocumented in this encounter Additional Health Concerns Assessment Noted Time PHQ-9 Depression Total Score: 4 03/20/20 24 9:12 AM EDT documented as of this encounter Care Teams Manager Mechanical Maintenance Relationship Specialty Start Date End Date Dainn Ramirez MD 505 [place] [address] PCP - General Internal Medicine 07/16/12 documented as of this encounter
--- OUTSIDE RECORDS SUMMARY | 2025-02-15 15:26 | XMS_ITS | Clinical Summary ---
Author Organization [employer] Address 75 [facility] 7t [place] [address] Care Team Providers Care Mill Roll Rewinder Name Role Phone Diann Ramirez MD Primary Care Provider +1- [phone] Allergies Active Allergy Reactions Criticality Noted Date [...] 23 Active ergocalciferol (Vitamin D2) 1.25 MG (19106 UT) capsuleIndicati ons:Vitamin D deficiency Take 1 [...] per day. 30 tablet 1 02/09/20 Active Omeprazole 20 MG tablet delayed-release Indications:Hia [...] mouth Once per day. 30 tablet 11 01/15/20 25 2024 Discontinued(R eorder (will not [...] intervention , [facility], Patient to engage [...] , Patient to reach out to [facility] team as needed, Patient to engage in OP therapy , and Patient to reach out to [facility] as needed Thrombocytopenia 03/20/2024 Assessment & [...] Type Department Care Team Description 02/10/2025 Telephone [facility] [address] [place], [place] [phone] Diann Ramirez MD US DOPPLER ORDER 02/08/2025 9:40 AM EDT Office Visit [facility] MED & PEDS [address] [place], [place] [phone] Diann Ramirez MD Pain of left calf (Primary Dx); Other chest pain; Hiatal hernia 02/08/2025 Travel 02/04/2025 Telephone [facility] MED & PEDS [address] [place], [place] [phone] Diann Ramirez MD Nurse Triage 01/24/2025 Refill [facility] MEDICINE [address] [place] [address] Diann Ramirez MD Anxiety 01/17/2025 Orders Only [facility] MED & PEDS [address] [place], [place] [phone] Diann Ramirez MD Primary hypertension (Primary Dx) 01/17/2025 Telephone [facility] CHC MED & PEDS [address] [place] [address] Diann Ramirez MD Medication Question 01/14/2025 Refill [facility] MED & PEDS [address] [place] [address] Diann Ramirez MD 01/14/2025 Refill [facility] MED[facility]INE [address] [place] [address] Diann Ramirez MD 12/31/2024 Population Health Risk Score [facility] () Department [address] [address] Provider, Population Health Generic 12/24/2024 Refill [facility] MED & PEDS [address] [place] [address] Naomi Reyes RN Anxiety 12/24/2024 Telephone [facility] [address] [place] [address] Diann Ramirez MD Med Refill 12/20/2024 2:00 PM EST Telemedicine [facility] MED & PEDS [address] [place] [address] Naomi Reyes, RN Anxiety; Long-term current use of benzodiazepine 12/20/2024 Travel 11/24/2024 Refill [facility] [address] [place] [address] Diann Ramirez MD Anxiety from Last 3 [...] [facility] [address] [place] [address] Naomi Reyes, TABATHA 505 [place] [address] 05/19/2025 1:00 PM EDT Office Visit [facility] CH[facility] MED & PEDS [address] [place] [address] Diann Ramirez MD 505 [place] [address] Health Maintenance Due Date Last Done Comments [...] OR Routine 11/24/2024 2:3 8 PM EST LIPID PANEL, STANDARD Routine 03/11/2024 [...] 11:16 AM EDT Heart rate 52 bpm. ??Lydia 50 degrees. ??Normal sinus rhythm. ??First-degree AV [...] EDT Narrative 02/09/2025 8:43 AM EDT ? [facility] ?[address] ?[place] [address] ?XRay Report ? Signed ? Patient: Stopa,Luc J ?MR#: [id number] ?? 78 ? : 1980 ?Acct:[id number] ? Age/Sex: 44 / M ?ADM Date: 02/08/25 ? Loc: HO.XRAY ? Attending Dr: Diann Ramirez MD ? Ordering Physician: Diann Ramirez MD ?? Date of Service: 02/08/25 ?? Procedure(s): XR chest 2V ?? Accession Number(s): [id number] ? cc: Diann Ramirez MD ? EXAMINATION: [...] DD/ 1046 ? TD/TT: 02/08/25 1118 ? Estate Planning Attorney: ? Procedure Note Colt Avendaño - 02/09/[address] [address] XRay Report Signed Patient: Luc Erickson JMR#: [id number] [birth year] : 1980Acct:[id number] Age/Sex: 44 / MADM Date: 02/08/25 Loc: MARCIAL.SIS Attending Dr: Diann Ramirez MD Ordering Physician: Diann Ramirez MD Date of Service: 02/08/25 Procedure(s): XR chest 2V Accession Number(s): [id number] cc: Diann Rmairez MD EXAMINATION: XR CHEST CLINICAL INFORMATION: Left [...] 02/09/25 0840 DD/ 1046 TD/TT: 02/08/25 1118 Estate Planning Attorney: us Diann Ramirez MD IMG XR PROCEDURES Final Res ult * XR Ankle 3+ Views Left (11/26/2024 11:03 AM EST) Anatomical Region Laterality Modality Lower Extremities, Ankle Left Radiogr aphic Imaging 11/26/2024 11:0 3 AM EST Narrative 11/26/2024 11:36 AM EST ? [facility] ? [address] ?[place] [address] ?XRay Report ? Signed ? Patient: Stopa,Luc J ?MR#: [id number] ?? 78 ? : 1980 ?Acct:[id number] ? Age/Sex: 44 / M ?ADM Date: 11/26/24 ? Loc: HO.HOSX ? Attending Dr: Misha VELASQUEZ ? Ordering Physician: Anna Bennett PA-C ?? Date of Service: 11/26/24 ?? Procedure(s): XR ankle LT min 3V ?? Accession Number(s): [id number] ? cc: Diann Ramirez MD; Anna Bennett [...] DD/ 1103 ? TD/TT: 11/26/24 1112 ? Estate Planning Attorney: ? Procedure Note Kateryna, Colt - 11/26/2024 [facility] [address] [place] [address] [address] [place] [address] XRay Report Signed Patient: Luc Erickson JMR#: [id number] [birth year] : 1980Acct:[id number] Age/Sex: 44 / MADM Date: 11/26/24 Loc: HO.HOSX Attending Dr: Misha VELASQUEZ Ordering Physician: Anna Bennett PA-C Date of Service: 11/26/24 Procedure(s): XR ankle LT min 3V Accession Number(s): [id number] cc: Diann Ramirez MD; Anna Bennett PA-C [...] 11/26/24 1133 DD/ 1103 TD/TT: 11/26/24 1112 Estate Planning Attorney: [facility] External Provider IMG XR PROCEDURES Final Result * FL Guidance in OR (11/24/2024 2:38 PM EST) Anatomical Region Laterality Modality X-Ray Angiograph y 11/24/2024 2:38 PM EST Narrative 11/25/2024 8:58 AM EST ? [facility] ?[address] ?[place] [address] ? Fluoroscopy Report ? Signed ? Patient: Luc Erickson ?MR#: [id number] ?? 78 ? : 1980 ?Acct:[id number] ? Age/Sex: 44 / M ?ADM Date: 11/24/24 ? Loc: HO.SSS ? Attending Dr: Will Randolph MD ? Ordering Physician: Will Randolph MD ?? Date of Service: 11/24/24 ?? Procedure(s): FL guidance in OR ?? Accession Number(s): [id number] ? cc: Diann Ramirez MD; Will Randolph [...] DD/ 1438 ? TD/TT: 11/24/24 1527 ? Estate Planning Attorney: ? Procedure Note Donoracioter, Image - 11/25/[address] [address] Fluoroscopy Report Signed Patient: Luc Erickson JMR#: [id number] 78 : 1980Acct:[id number] Age/Sex: 44 / MADM Date: 11/24/24 Loc: HO.SSS Attending Dr: Will Randolph MD Ordering Physician: Will Randolph MD Date of Service: 11/24/24 Procedure(s): FL guidance in OR Accession Number(s): [id number] cc: Diann Ramirez MD; Will Randolph MD [...] 11/25/24 0856 DD/ 1438 TD/TT: 11/24/24 1527 Estate Planning Attorney: [facility] External Provider IMG IR PROCEDURES Final Result * (ABNORMAL) Lipid Panel, Standard (03/11/2024 1:07 PM EDT) Triglycerides 40 <150 mg/dL [facility] Comment:Desirable Triglyceri de: less than 150 mg/dLBorderline High Triglyceride 150-199 mg/dLHigh Triglyceride: 200-499 mg/dLVery High Triglyceride: greater than or equal to 5OO mg/dL Cholesterol 141 <200 mg/dL [facility] Comment:Desirable Cholestero l: less than 200 mg/dLBorderline High Cholesterol: 200-239 mg/dLHigh Cholesterol: greater than 239 mg/dL LDL Cholesterol Calculated 93 <100 mg/dL [facility] Comment:Desirable LDL: less than 100 mg/dLNear Optimal/Above Optimal LDL: 110- 129 mg/dLBorderline High LDL: 130-159 mg/dLHigh LDL: 160-189 mg/dLVery High LDL: greater than or equal to 190 mg/dL HDL Cholesterol 40(L) >40 mg/dL [facility] Comment:Desirable HDL: great er than 40 mg/dL Note: This HDL assay may give artificially low results in patients with liver disease. Blood Venous blood specimen / Unknown 03/11/2024 1:07 PM EDT 03/11/2024 2:22 PM EDT Diann Ramirez MD LAB BLOOD ORDERABLES Final Result [facility] [address] [place], [place] [phone] * HIV AB/AG (08/07/2022 2:03 PM [...] detection of this assay. ?? The [employer] HIV Ag/Ab Combo assay result and supplemental assay results should be interpreted in conjunction with the patient's clinical presentation, history and other laboratory results. ??If the results are inconsistent with clinical evidence, additional testing is suggested to confirm the result. 08/07/2022 2:03 PM EDT us Tra Linton MD HISTORICAL/NON ORDERAB LE LABS Final Result Performing Organization Address [facility] de Phone Number CONVERTED LEGACY LABS * HEPATITIS C AB W/REFL TO HCV RNA, QN, PCR (07/01/2022 10:13 AM EDT) HEPATITIS C ANTIBODY NON-REACT [facility] NON-REACT [facility] INDEX 0.14 <1.00 [facility] Comment: ?? HCV antibody was non-reactive. There is no laboratory ?? evidence of HCV infection. ?? In most cases, no further action is required. However, if recent HCV exposure is suspected, a test for HCV RNA (test code 21457) is suggested. ?? For additional information please refer to http://education.Brightpearl.CyberSponse/faq/YWJ84w5 (This link is being provided for informational/ educational purposes only.) ?? 07/01/2022 10:1 3 AM EDT us Diann Ramirez MD HISTORICAL/NON ORDERABLE LA BS Final Result Performing Organization Address [facility] Co de Phone Number [facility] [address] from Last 3 Months or Most Recently Relevant to Health Maintenance Insurance [facility] C3 Care Teams Mill Roll Rewinder Relationship Specialty Start Date End Date Diann Ramirez MD [address] [place] [address] [place] [address] PCP - General Internal Medicine 07/16/12
--- OUTSIDE RECORDS SUMMARY | 2025-02-15 15:26 | XMS_ITS | Encounter Summary ---
Author Organization [employer] Address 75 [facility] 7t [place] [address] Care Team Providers Care Sky Diver Name Role Phone Diann Ramirez MD Primary Care Provider +1 [phone] Encounter Details Date Type Department Care Team (Late st Contact Info) Description 05/18/2024 Orders Only [facility] CHC MED & PEDS [address] [place], [place] [phone] Provider, MD Shar Social History Tobacco Use [...] [facility] [address] [place] [address] Naomi Reyes RN 505 [place] [address] 05/19/2025 1:00 PM EDT Office Visit [facility]ED[facility] [address] [place] [address] Diann Ramirez MD [address] [place] [address] documented as of this encounter Procedures Procedure [...] documented as of this encounter Care Teams Sky Diver Relationship Specialty Start Date End Date Diann Ramirez MD [address] [place] [address] PCP - General Internal Medicine 07/16/12 documented as of this encounter
--- OUTSIDE RECORDS SUMMARY | 2025-02-15 15:26 | XMS_ITS | Encounter Summary ---
Author Organization [email or web address] Address 75 [facility] 7 [place] [address] Care Team Providers Care Roll On Worker Name Role Phone Diann Ramirez MD Primary Care Provider +1 [phone] Reason for Visit * Reason Onset Date Comments Appointment Request 06/17/2024 Encounter Details Date Type Department Care Team ([facility] st Contact Info) Description 06/17/2024 Telephone [facility] MED[facility] [address] [place] [address] Diann Ramirez MD [address] [place] [address] Appointment Request Social History Tobacco Use Types [...] [facility] MED & PEDS 505 [place] [address] Naomi Reyes RN 505 [place] [address] 05/19/2025 1:00 PM EDT Office Visit [facility] MED & PEDS [address] [place] [address] Diann Ramirez MD 505 [place] [address] documented as of this encounter Visit Diagnoses Not on filedocumented in this encounter Additional Health Concerns Assessment Noted Time PHQ-9 Depression Total Score: 4 03/20/20 24 9:12 AM EDT documented as of this encounter Care Teams Roll On Worker Relationship Specialty Start Date End Date Diann Ramirez MD [address] [place] [address] PCP - General Internal Medicine 07/16/12 documented as of this encounter
--- OUTSIDE RECORDS SUMMARY | 2025-02-15 15:26 | XMS_ITS | Clinical Summary ---
Author Organization [facility] Address [address] [place] [address] Phone Care Team Providers Care Room Server Name Role Phone Physician, Pcp Unknown Primary Care Provider Alejandra vailable Allergies No known active allergies Encounters Date Type Department Care Team Description 12/09/2024 2:50 PM EST - 12/09/2024 7:00 PM EST Emergency [facility] Emergency [address] [place] [address] Edinson Hernandez, Leg swelling (Primary [...] Months Insurance MEDICAID - [place] Care Teams Room Server Relationship Specialty Start Date End Date Physician, Pcp Unknown PCP - General 12/09/24
--- OUTSIDE RECORDS SUMMARY | 2025-02-15 15:26 | XMS_ITS | Encounter Summary ---
Author Organization [employer] Address 75 [facility] 7 [place] [address] Care Team Providers Care Doctor Of Nurse Anesthesia Name Role Phone Diann Ramirez MD Primary Care Provider +1 [phone] Reason for Visit * Reason Onset Date Comments Med Refill 09/02/2024 Encounter Details Date Type Department Care Team (Late st Contact Info) Description 09/02/2024 Telephone [facility] MED[facility]INE [address] [place] [address] Diann Ramirez MD [address] [place] [address] Med Refill Social History Tobacco Use Types [...] 1 MG tablet To be sent to: [id number] - [place] - 1 [facility] documented in this encounter Plan of Treatment Upcoming Encounters Date Type Department Care Team (Late st Contact Info) Description 03/21/2025 1:30 PM EDT Telemedicine [facility] MED & PEDS [address] [place] [address] Naomi Reyes RN [address] [place] [address] 05/19/2025 1:00 PM EDT Office Visit [facility] MED & PEDS [address] [place] [address] Diann Ramirez MD [address] [place] [address] documented as of this encounter Visit Diagnoses Not on filedocumented in this encounter Additional Health Concerns Assessment Noted Time PHQ-9 Depression Total Score: 4 03/20/20 24 9:12 AM EDT documented as of this encounter Care Teams Doctor Of Nurse Anesthesia Relationship Specialty Start Date End Date Diann Ramirez MD [address] [place] [address] PCP - General Internal Medicine 07/16/12 documented as of this encounter
--- OUTSIDE RECORDS SUMMARY | 2025-02-15 15:26 | XMS_ITS | Encounter Summary ---
Author Organization [employer] Address 75 [facility] 7 [place] [address] Care Team Providers Care Data Migration Consultant Name Role Phone Diann Ramirez MD Primary Care Provider +1 [phone] Reason for Visit * Reason Onset Date Comments Med Refill 07/28/2024 Encounter Details Date Type Department Care Team (Late st Contact Info) Description 07/28/2024 Telephone [facility] MEDICINE [address] [place] [address] Diann Ramirez MD 505 [place], [place] [phone] Med Refill Social History Tobacco Use Types [...] 1 MG tablet To be sent to: [id number] - [place] - [address] [place] [facility] documented in this encounter Plan of Treatment Upcoming Encounters Date Type Department Care Team (Late st Contact Info) Description 03/21/2025 1:30 PM EDT Telemedicine [facility] MED & PEDS [address] [place] [address] Naomi Reyes RN [address] [place] [address] 05/19/2025 1:00 PM EDT Office Visit [facility] & PEDS [address] [place] [address] Diann Ramirez MD [address] [place] [address] documented as of this encounter Visit Diagnoses Not on filedocumented in this encounter Additional Health Concerns Assessment Noted Time PHQ-9 Depression Total Score: 4 03/20/20 24 9:12 AM EDT documented as of this encounter Care Teams Data Migration Consultant Relationship Specialty Start Date End Date Diann Ramirez MD [address] [place] [address] PCP - General Internal Medicine 07/16/12 documented as of this encounter
--- OUTSIDE RECORDS SUMMARY | 2025-02-15 15:26 | XMS_ITS | Encounter Summary ---
Author Organization [employer] Address 75 [facility] 7 [place] [address] Care Team Providers Care Utility Bagger Name Role Phone Diann Ramirez MD Primary Care Provider +1 [phone] Reason for Visit * Reason Onset Date Comments Med Refill 05/31/2024 Encounter Details Date Type Department Care Team (Late st Contact Info) Description 05/31/2024 Telephone [facility] MEDICINE [address] [place] [address] Diann Ramirez MD [address] [place] [address] Med Refill Social History Tobacco Use Types [...] 1 MG tablet To be sent to: [facility][id number] - [place] - 1 [facility] [facility] documented in this encounter Plan of Treatment Upcoming Encounters Date Type Department Care Team (Late st Contact Info) Description 03/21/2025 1:30 PM EDT Telemedicine [facility] MED & PEDS [address] [place] [address] Naomi Reyes RN [address] [place] [address] 05/19/2025 1:00 PM EDT Office Visit [facility] PEDS [address] [place] [address] Diann Ramirez MD [address] [place] [address] documented as of this encounter Visit Diagnoses Not on filedocumented in this encounter Additional Health Concerns Assessment Noted Time PHQ-9 Depression Total Score: 4 03/20/20 24 9:12 AM EDT documented as of this encounter Care Teams Utility Bagger Relationship Specialty Start Date End Date Diann Ramirez MD [address] [place] [address] PCP - General Internal Medicine 07/16/12 documented as of this encounter
--- OUTSIDE RECORDS SUMMARY | 2025-02-15 15:26 | XMS_ITS | Encounter Summary ---
Author Organization [employer] Address 75 [facility] 7 [place] [address] Care Team Providers Care Manager Employee Relations Name Role Phone Diann aRmirez MD Primary Care Provider [phone]- [phone] Reason for Visit * Reason Onset Date Comments Appointment Request 01/13/2024 Encounter Details Date Type Department Care Team (Late st Contact Info) Description 01/13/2024 Telephone [facility] MEDICINE [address] [place] [address] Diann Ramirez MD [address] [place] [address] Appointment Request Social History Tobacco Use Types [...] 03/21/2025 1:30 PM EDT Telemedicine [facility] MED & PEDS [address] [place] [address] Naomi Reyes, TABATHA [address] [place] [address] 05/19/2025 1:00 PM EDT Office Visit [facility] MED & PEDS [address] [place] [address] Diann Ramirez MD 505 [place] [address] documented as of this encounter Visit Diagnoses Not on filedocumented in this encounter Additional Health Concerns Assessment Noted Time PHQ-9 Depression Total Score: 1 10/31/19 23 3:59 PM EST documented as of this encounter Care Teams Manager Employee Relations Relationship Specialty Start Date End Date Diann Ramirez MD [address] [place] [address] PCP - General Internal Medicine 07/16/12 documented as of this encounter
--- OUTSIDE RECORDS SUMMARY | 2025-02-15 15:26 | XMS_ITS | Encounter Summary ---
Author Organization [employer] Address 75 [facility] 7 [place] [address] Care Team Providers Care Gut Carrier Name Role Phone Diann Ramirez MD Primary Care Provider +1 [phone] Reason for Visit * Reason Onset Date Comments Referral 11/21/2022 Encounter Details Date Type Department Care Team (Late st Contact Info) Description 11/21/2022 Telephone [facility] [address] [place] [address] Diann Ramirez MD [address] [place] [address] Referral Social History Tobacco Use Types Packs/Day [...] by Dr Linton Please contact pt at [phone] Please see above message. Thanks * Telephone Encounter - Mario Tavaresos - 11/21/2022 2:42 PM EST Tc from pt requesting a new referral for neurologist states don't want to be seen by Dr Linton Please contact pt at [phone] documented in this encounter Plan of Treatment Upcoming Encounters Date Type Department Care Team (Late st Contact Info) Description 03/21/2025 1:30 PM EDT Telemedicine [facility] MED & PEDS [address] [place] [address] Naomi Reyes RN [address] [place] [address] 05/19/2025 1:00 PM EDT Office Visit [facility] MED & PEDS [address] [place] [address] Diann Ramirez MD [address] [place] [address] documented as of this encounter Visit Diagnoses Diagnosis Chronic cluster headache, not intractable- Primary documented in this encounter Additional Health Concerns Assessment Noted Time PHQ-9 Depression Total Score: 1 10/31/19 23 3:59 PM EST documented as of this encounter Care Teams Gut Carrier Relationship Specialty Start Date End Date Diann Ramirez MD [address] [place] [address] PCP - General Internal Medicine 07/16/12 documented as of this encounter
--- OUTSIDE RECORDS SUMMARY | 2025-02-15 15:26 | XMS_ITS | Encounter Summary ---
Author Organization [employer] Address [address] [facility] 7 [place] [address] Care Team Providers Care Brim Stretching Machine Operator Name Role Phone Diann Ramirez MD Primary Care Provider +1 [phone] Reason for Visit * Reason Onset Date Comments Med Refill 11/25/2022 Encounter Details Date Type Department Care Team (Late st Contact Info) Description 11/25/2022 Telephone [facility] MEDICINE [address] [place] [address] Diann Ramirez MD [address] [place] [address] Med Refill Social History Tobacco Use Types [...] Info) Description 03/21/2025 1:30 PM EDT Telemedicine [facility] [address] [place] [address] Naomi Reyes, TABATHA 505 [place] [address] 05/19/2025 1:00 PM EDT Office Visit [facility] [address] [place] [address] Diann Ramirez MD [address] [place] [address] documented as of this encounter Visit Diagnoses Not on filedocumented in this encounter Additional Health Concerns Assessment Noted Time PHQ-9 Depression Total Score: 1 10/31/19 23 3:59 PM EST documented as of this encounter Care Teams Brim Stretching Machine Operator Relationship Specialty Start Date End Date Diann Ramirez MD [address] [place] [address] PCP - General Internal Medicine 07/16/12 documented as of this encounter
== END 2025-02-15 13:23 | disposition home or self-care (01) ==
LOC: HO.US 13:22
PROVIDERS: Visit Provider Internal Medicine
DX: M79.662 Pain in left lower leg (principal)
CPT/HCPCS: 93971

== ENCOUNTER → 2025-02-15 13:31 | Outpatient (BNV) | payer MEDICAID, SELFPAY | PROVIDERS: Visit Provider Radiology Diagnostic Radiology | DX: M79.605 Pain in left leg (principal) | CPT/HCPCS: 93971 ==

== ENCOUNTER 2025-03-15 13:00 | Outpatient (RCR) | payer MEDICAID, SELFPAY ==
--- NOTE | 2025-02-04 13:52 | MHC.PT.EP ---
[facility] [place] [facility] [place] [facility] [place] Office [address] Laith Roque [address] [phone] F: [phone] F: [phone] F: [phone] F: [phone] Physical Therapy Plan of Care Date of Evaluation: 02/04/25 Date of Surgery: 11/24/2024 Diagnosis: closed L ankle fx Assessment: Patient is a 44 year old male presenting to PT with complaints of pain in s/p L ankle ORIF 11/24/2024. He presents today with impairments in pain, ankle ROM, ankle strength, balance, gait mechanics. 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 Pt expresses assisted goal of returning to PLOF, and is motivated to work towards this in PT. Clinical presentation today is most consistent with signs and sx associated with L ankle ORIF 11/24/2024 and pt will benefit from skilled PT 2 week x 4 weeks to address the following problems and impairments noted upon evaluation: pain, ankle ROM, ankle strength, balance, gait mechanics. These problems limit the patient with the following functional activities: ambulating, stair negotiation, ADLs. The prescribed treatment plan of care is medically necessary. Co-morbidities of opiate use disorder, HTN, anxiety were identified and taken into considerations of plan of care. Pt was educated on HEP, role of PT, prognosis, POC. Frequency and Duration: The patient will be seen 2 x week x 4 weeks Short Term Goals: Pt will demonstrate improved L ankle ROM to equal B in 2 weeks. Pt will demonstrate L ankle MMT strength improved by 1/3 grade in 2 weeks. Pt will demonstrate ability to clinical safety specialist tandem stance x 30 sec and min to no sway in 2 weeks. Mcc Goals: Pt will demonstrate improved LEFI score by 9 points in 4 weeks for improved functional mobility. Pt will demonstrate ability to ambulate with normal mechanics in 4 weeks for return to PLOF. Pt will demonstrate ability to negotiate stairs with min to no pain in 4 weeks for improved access to his home. Treatment Plan: Modalities to reduce pain, spasms and effusion. Manual therapy to restore motion and function. Therapeutic exercise to improve strength and flexibility. Neuromuscular re-education for posture and balance. Therapeutic activities to return to functional activities of daily living. Electronically signed by: Gladys Shook, PT, DPT, ATC Please sign and return to therapist. Thank you for your referral.
--- NOTE | 2025-03-15 13:57 | MHC.PT.DC ---
[facility] [place] [facility] [place] [facility] [place] [facility] [address] Laith Roque [address] [phone] F: [phone] F: [phone] F: [phone] F: [phone] Physical Therapy Discharge Report Diagnosis: closed L ankle fx Date of Surgery: 11/24/2024 Date of Evaluation: 02/04/25 Date of Discharge: 03/15/25 Treatments to Date: 12 Cancellations to Date: 0 No Shows to Date: 0 Discharge Status: Achieved Goals Improved Function Independent with HEP Recommend MD Follow-up Discharge Summary: 03/15/2025: He continues to feel something is not right with his ankle and he is adamant he would like an MRI. I have reviewed with him multiple times that I have no ability to order more imaging and that it would need to come from the doctor. He continues to state the doctor will not order more imaging. He states things are deformed . I cannot appreciate what he is referring to as I do not see any obvious deformity. Functionally, he only has impairments with his gait which seems to vary from session to session. He tends to circumduct at the hip. It is somewhat confusing as to why his gait is not improving as he is able to tolerate all high level functional strengthening in the clinic through full ROM. He is able to do stairs, balance exercises, and resisted strengthening without issues. Objectively, he has no impairments in balance, strength, or ROM. He is appropriate for d/c today as objectively he has met all goals other than gait. In terms of pain and the ongoing gait issues I do not feel more PT will significantly change this as we have maximized all we can at this time. I recommend he continues with his program at home. I also continue to recommend him to discuss his ongoing concerns regarding his pain and gait with his surgeon. If he is still not feeling like he is getting anywhere than at that point all I can recommend is for him to consider a second opinion. Electronically signed by: Gladys Shook, PT, DPT, ATC Please sign and return to therapist. Thank you for your referral.
== END 2025-03-15 13:59 | disposition home or self-care (01) ==
LOC: HO.PTCHIC 13:00
PROVIDERS: PCP Internal Medicine; Visit Provider Physician Assistant
DX: S82.892D Other fracture of left lower leg, subsequent encounter for closed fracture with routine healing (principal); Z87.81 Personal history of (healed) traumatic fracture
CPT/HCPCS: 97110; 97112; 97161; 97530

== ENCOUNTER 2025-03-24 11:00 | Outpatient (AMB) | payer MEDICAID, SELFPAY ==
--- NOTE | 2025-03-24 11:11 | A.OFFVIS_ITS ---
Intake Visit Reasons: OV-LT ankle ORIF 11/24/24 NE-w/xrays Intake Note: Luc is a 44 year old male who presents today for a follow up appointment s/p LT ankle ORIF 11/24/24 NE. At his last visit patient was recommended to continue physical therapy with the goal to discontinue his tall walking boot. Patient reports he is still having pain with certain movements and he is aware that he is healing. Patient is requesting to get an MRI. Allergies No Known Allergies Allergy (Verified 03/24/25 11:18) HPI HPI OV-LT ankle ORIF 11/24/24 NE-w/xrays: Details: Mr. Erickson is a 44-year-old male who presents to the office today for follow-up status post left ankle ORIF performed on 11/24/[address] Randolph. He has weaned into a supportive walking shoe and is using a cane to assist with ambulation. He was attending physical therapy and then was discharged after meeting all goals. 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 Incision sites are well approximated and fully healed. No surrounding erythema or drainage. No signs of infection. No skin breakdown. Able to dorsiflex and plantar flex. Able to move all digits. Sensation is intact. Pedal pulse intact. Capillary refill is brisk. Calf is supple and nontender. Negative Homans. NVI. Assessment & Plan Assessment & Plan (1) Status post ORIF of fracture of ankle: Code(s): Z98.890 - Other specified postprocedural states; Z87.81 - Personal history of (healed) traumatic fracture Category: Surgical Plan Left ankle incision sites are well approximated and fully healed. No surrounding erythema or drainage. No signs of infection. No skin breakdown. Able to dorsiflex and plantar flex. Able to move all digits. Sensation is intact. Pedal pulse intact. Capillary refill is brisk. Calf is supple and nontender. Negative Homans. NVI. On the office today Dr. Randolph was available to see the patient with me and provide reassurance to the patient. He continues to have extreme concerns and anxiety in regards to his recovery and possibility of complications in the future. The recommendations are that the patient continue with his home exercise program and work on gentle stretching exercises to work on range of motion as the patient does have significant stiffness with plantar flexion as well as pronation and supination. 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 He will follow up at that time, sooner if needed. Orders: Orders XR ankle LT min 3V Today M25.579 - Pain in unspecified ankle and joints of unspecified foot Coding Level of Care Code Est Pt Level 3 (29159) Diagnoses Status post ORIF of fracture of ankle Z98.890; Z87.81
--- OUTSIDE RECORDS SUMMARY | 2025-03-24 13:01 | XMS_ITS | Encounter Summary ---
Author Organization [employer] Address 75 [facility] 7 [place] [address] Care Team Providers Care Warp Clamper Name Role Phone Diann Ramirez MD Primary Care Provider +1- [phone] Reason for Visit * Reason Onset Date Comments Referral 08/09/2024 Encounter Details Date Type Department Care Team ([facility] st Contact Info) Description 08/09/2024 Telephone [facility] MEDICINE [address] [place], [place] [phone] Diann Ramirez MD [address] [place], [place] [phone] Referral Social History Tobacco Use Types Packs/Day [...] Jimenez RN - 08/14/2024 12:07 PM EDT [employer] message informing pt referral for Neuro was [...] Upcoming Encounters Date Type Department Care Team ([facility] st Contact Info) Description 05/16/2025 11:00 AM EDT Telemedicine [facility] MED [facility] [address] [place] [address] Naomi Reyes RN [address] [place] [address] 05/19/2025 1:00 PM EDT Office Visit [facility] [address] [place] [address] Diann Ramirez MD [address] [place] [address] documented as of this encounter Visit Diagnoses Not on filedocumented in this encounter Additional Health Concerns Assessment Noted Time PHQ-9 Depression Total Score: 4 03/20/20 24 9:12 AM EDT documented as of this encounter Care Teams Warp Clamper Relationship Specialty Start Date End Date Diann Ramirez MD [address] [place] [address] PCP - General Internal Medicine 07/16/12 documented as of this encounter
== END 2025-03-24 12:15 | disposition home or self-care (01) ==
LOC: HO.HOS 11:01
PROVIDERS: PCP Internal Medicine; Visit Provider Physician Assistant
DX: Z47.89 Encounter for other orthopedic aftercare (principal); S82.62XD Displaced fracture of lateral malleolus of left fibula, subsequent encounter for closed fracture with routine healing
CPT/HCPCS: 99213

== ENCOUNTER → 2025-03-24 11:03 | Outpatient (BNV) | payer MEDICAID, SELFPAY | PROVIDERS: Visit Provider Radiology Diagnostic Radiology | DX: S82.832A Other fracture of upper and lower end of left fibula, initial encounter for closed fracture (principal) | CPT/HCPCS: 73610 ==

== ENCOUNTER 2025-03-24 11:09 | Outpatient (REF) | payer MEDICAID, SELFPAY ==
--- NOTE | ~2025-03-24 | XR_ITS ---
EXAMINATION: XR ANKLE 3 OR MORE VIEWS LEFT HISTORY: M25.579 - Pain in unspecified ankle and joints of unspecified foot COMPARISON: Comparison is made with the prior examination dated 06/12/2025. FINDINGS: Three views of the left ankle are submitted. Osseous mineralization is normal. The patient is again noted to be status post internal fixation of a fracture of the distal fibula. The fracture line remains visible. A fracture of the posterior malleolus is also noted. The joint spaces are preserved. There is a small plantar calcaneal spur. The soft tissues are unremarkable. XR/XR ankle LT min 3V IMPRESSION: Internal fixation of a fracture of the distal fibula without change. Posterior malleolar fracture without change. Electronically signed by: Jovany Arambula MD 03/24/2025 11:28 AM EDT
--- OUTSIDE RECORDS SUMMARY | 2025-03-25 12:01 | XMS_ITS | Encounter Summary ---
Author Organization [employer] Address [address] [facility] 7t [place] [address] Care Team Providers Care Financial Assistance Advisor Name Role Phone Diann Ramirez MD Primary Care Provider +1- [phone] Reason for Visit * Reason Onset Date Comments Referral 08/09/2024 Encounter Details Date Type Department Care Team ([facility] st Contact Info) Description 08/09/2024 Telephone [facility] MEDICINE [address] [place], [place] [phone] Diann Ramirez MD [address] [place], [place] [phone] Referral Social History Tobacco Use Types Packs/Day [...] Jimenez RN - 08/14/2024 12:07 PM EDT [employer] message informing pt referral for Neuro was sent to [facility] [place] [place] Neuro and pt should get a call [...] Upcoming Encounters Date Type Department Care Team ([facility] st Contact Info) Description 05/16/2025 11:00 AM EDT Telemedicine [facility] MED [facility] PED[facility] [address] [place] [address] Naomi Reyes RN [address] [place] [address] 05/19/2025 1:00 PM EDT Office Visit [facility] [address] [place] [address] Diann Ramirez MD [address] [place] [address] documented as of this encounter Visit Diagnoses Not on filedocumented in this encounter Additional Health Concerns Assessment Noted Time PHQ-9 Depression Total Score: 4 03/20/20 24 9:12 AM EDT documented as of this encounter Care Teams Financial Assistance Advisor Relationship Specialty Start Date End Date Diann Ramirez MD [address] [place] [id number] PCP - General Internal Medicine 07/16/12 documented as of this encounter
== END 2025-03-24 11:10 | disposition home or self-care (01) ==
LOC: HO.HOSX 11:09
PROVIDERS: Visit Provider Physician Assistant
DX: M25.572 Pain in left ankle and joints of left foot (principal); Z98.890 Other specified postprocedural states; Z87.81 Personal history of (healed) traumatic fracture
CPT/HCPCS: 73610; 99212

== ENCOUNTER 2025-05-12 08:33 | Outpatient (REF) | payer MEDICAID, SELFPAY ==
--- NOTE | ~2025-05-12 | XR_ITS ---
EXAMINATION: XR ANKLE, LEFT CLINICAL INFORMATION: M25.579 - Pain in unspecified ankle and joints of unspecified foot COMPARISON: Numerous priors, most recently 03/24/2025. TECHNIQUE: AP, lateral, and mortise views of the left ankle. FINDINGS: Redemonstration of lateral plate and screw fixation of distal fibular fracture. Hardware is intact and well seated. No complication. There is a radiolucent syndesmotic stabilization device. The fracture lines are barely visible with sclerosis and blunting indicating healing. There is a healing small avulsion fragment of the posterior malleolus. There are improved subchondral cystic changes of the talar dome. 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 Mortise remains intact. Small plantar calcaneal spur. No new bony abnormalities. Improved soft tissue swelling. XR/XR ankle LT min 3V IMPRESSION: No significant interval changes of healing distal fibular fracture and posterior malleolar fracture. Electronically signed by: Carter Ruiz MD 05/12/2025 09:11 AM EDT
--- OUTSIDE RECORDS SUMMARY | 2025-05-13 08:46 | XMS_ITS | Clinical Summary ---
Author Organization [facility] Address [address] [place] [phone] Phone Care Team Providers Care Search Specialist Name Role Phone Physician, Pcp Unknown Primary [...] topic Insurance MEDICAID - [place] Care Teams Search Specialist Relationship Specialty Start Date End Date Physician, Pcp Unknown PCP - General 12/09/24
--- OUTSIDE RECORDS SUMMARY | 2025-05-13 08:46 | XMS_ITS | Encounter Summary ---
Author Organization [employer] Address 75 [facility] 7t [place] [address] Care Team Providers Care Jewelry Casting Model Maker Apprentice Name Role Phone Diann Ramirez MD Primary Care Provider +1- [phone] Reason for Visit * Reason Onset Date Comments Referral 08/09/2024 Encounter Details Date Type Department Care Team ([facility] st Contact Info) Description 08/09/2024 Telephone [facility] MEDICINE [address] [place], [place] [phone] Diann Ramirez MD [address] [place], [place] [phone] Referral Social History Tobacco Use Types Packs/Day [...] Jimenez RN - 08/14/2024 12:07 PM EDT [employer] message informing pt referral for Neuro was sent to [facility] [place] Neuro and pt [...] Upcoming Encounters Date Type Department Care Team ([facility] st Contact Info) Description 05/16/2025 11:00 AM EDT Telemedicine [facility] MED & PEDS [address] [place] [address] Naomi Reyes RN [address] [place] [address] 05/19/2025 1:00 PM EDT Office Visit [facility] MED & PEDS [address] [place] [address] Diann Ramirez MD [address] [place] [address] documented as of this encounter Visit Diagnoses Not on filedocumented in this encounter Additional Health Concerns Assessment Noted Time PHQ-9 Depression Total Score: 4 03/20/20 24 9:12 AM EDT documented as of this encounter Care Teams Jewelry Casting Model Maker Apprentice Relationship Specialty Start Date End Date Diann Ramirez MD [address] [place] [id number] PCP - General Internal Medicine 07/16/12 documented as of this encounter
== END 2025-05-12 08:34 | disposition home or self-care (01) ==
LOC: HO.HOSX 08:33
PROVIDERS: Visit Provider Physician Assistant
DX: M25.572 Pain in left ankle and joints of left foot (principal); R20.0 Anesthesia of skin; R20.2 Paresthesia of skin; Z87.81 Personal history of (healed) traumatic fracture; Z98.890 Other specified postprocedural states
CPT/HCPCS: 73610; 99212

== ENCOUNTER 2025-05-12 08:51 | Outpatient (AMB) | payer MEDICAID, SELFPAY ==
--- NOTE | 2025-05-12 08:55 | A.OFFVIS_ITS ---
Vital Signs 05/12/25 08:56 Height 5 ft 10 in Weight 240 lb BMI 34.4 Intake Visit Reasons: OV-LT ankle ORIF 11/24/24 NE Intake Note: Luc is a 44 year old male who presents today for a follow up appointment s/p LT ankle ORIF 11/24/24 NE. At his last visit he was advised to continue with his home exercise program and work on gentle stretching exercises to work on range of motion. Patient reports he is still experiencing pain and numbness, everything feels the same . Patient continues taking Ibuprofen with minimal relief. Allergies No Known Allergies Allergy (Verified 05/12/25 09:01) HPI HPI OV-LT ankle ORIF 11/24/24 NE: Details: Mr. Dre mclaughiln is a 44-year-old male who presents to the office today for routine follow-up status post left ankle ORIF performed on 11/24/[address] Randolph. In his last appointment the patient was having some stiffness about the Achilles tendon and continued to complain of numbness and tingling in the foot. He also reports that he has waxing and waning inflammation in the left ankle depending on activity. 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 Incision sites are well approximated and fully healed. No surrounding erythema or drainage. No signs of infection. No skin breakdown. Able to dorsiflex and plantar flex. Able to move all digits. Sensation is intact. Pedal pulse intact. Assessment & Plan Assessment & Plan (1) Status post ORIF of fracture of ankle: Code(s): Z98.890 - Other specified postprocedural states; Z87.81 - Personal history of (healed) traumatic fracture Category: Surgical Plan Mr. Erickson this is a 44-year-old male who presents to the office today for routine follow-up status post left ankle ORIF performed on 11/24/[address] Randolph. In his last appointment the patient was having some stiffness about the Achilles tendon and continued to complain of numbness and tingling in the foot. He also reports that he has waxing and waning inflammation in the left ankle depending on activity. While in the office today, I think it may be reasonable to have this patient worked up for the possibility of complex regional pain syndrome. A referral has been placed to pain management for further evaluation and treatment. Additionally, I recommended the patient continue performing his home exercise program and taking ibuprofen as needed. As previously discussed with the patient, this injury may take up to 1 year to recover from. He will follow up with orthopedics after his appointment with pain management, sooner if needed. X-rays of the left ankle which were obtained while in the office today and were reviewed by me, Anna Bennett PA-C, revealed intact orthopedic hardware with routine healing. Orders: Orders XR ankle LT min 3V Today M25.579 - Pain in unspecified ankle and joints of unspecified foot Coding Level of Care Code Est Pt Level 3 (38749) Diagnoses Status post ORIF of fracture of ankle Z98.890; Z87.81
[2025-05-12 08:56] VITALS: BMI 34.4
--- OUTSIDE RECORDS SUMMARY | 2025-05-12 09:18 | XMS_ITS | Clinical Summary ---
Author Organization [facility] Address [address] [place] [phone] Phone Care Team Providers Care Cupola Tender Name Role Phone Physician, Pcp Unknown Primary Care Provider Alejandra vailable Allergies No known active allergies Social History Tobacco Use Types Packs/Day Years [...] 63 12/09/2024 6:54 PM EST Temperature 36.8 C (98.2 F) 12/09/2024 6:54 PM EST Respiratory Rate 18 12/09/2024 6:54 PM EST [...] Vaccine (1 - 2023-2 5 season) 2024 Depression Screening 10/20/2024 Hypertension/CHF/CAD Annual BMP Blood Test 12/09/2024 Influenza Vaccine (#1) 2025 DTaP,Tdap,and Td Vaccines (2 - Td [...] 5 Years) and At-Risk Patients (6 to 49 Years) Aged Out No longer eligi ble based on patient's age to complete this topic RSV Immunization Patients Un klarissa 20 months Aged Out No longer eligible b ased on patient's age to complete this topic Varicella Vaccines Aged Out No longer eligible based on patient's age to complete this topic Insurance MEDICAID - [place] Care Teams Cupola Tender Relationship Specialty Start Date End Date Physician, Pcp Unknown PCP - General 12/09/24
--- OUTSIDE RECORDS SUMMARY | 2025-05-12 09:18 | XMS_ITS | Encounter Summary ---
Author Organization [employer] Address 75 [facility] 7t [place] [address] Care Team Providers Care Gauge Inspector Name Role Phone Diann Ramirez MD Primary Care Provider +1- [phone] Reason for Visit * Reason Onset Date Comments Referral 08/09/2024 Encounter Details Date Type Department Care Team ([facility] st Contact Info) Description 08/09/2024 Telephone [facility] MEDICINE [address] [place], [place] [phone] Diann Ramirez MD [address] [place], [place] [phone] Referral Social History Tobacco Use Types Packs/Day Years Used Date Smoking Tobacco: Never Smokeless Tobacco: Never Depression Answer Date Recorded Patient Health Questionnaire-9 Score 4 03/20/2024 Patient Health Questionnaire-9 Score 4 03/20/2024 Last PHQ-9: Questionnaire Data Not on file 0 03/20/2024 Housing Stability Answer Date Recorded What is your housing situation today? I have ivdhi shane 03/20/[address] you [...] Jimenez RN - 08/14/2024 12:07 PM EDT [employer] message informing pt referral for Neuro was sent to [facility] [place] Neuro and pt should get a call [...] Upcoming Encounters Date Type Department Care Team ([facility] st Contact Info) Description 05/16/2025 11:00 AM EDT Telemedicine [facility] MED [facility] PEDS [address] [place] [address] Naomi Reyes RN [address] [place] [address] 05/19/2025 1:00 PM EDT Office Visit [facility] MED [facility] PEDS [address] [place] [address] Diann Ramirez MD [address] [place] [address] documented as of this encounter Visit Diagnoses Not on filedocumented in this encounter Additional Health Concerns Assessment Noted Time PHQ-9 Depression Total Score: 4 03/20/20 24 9:12 AM EDT documented as of this encounter Care Teams Gauge Inspector Relationship Specialty Start Date End Date Diann Ramirez MD [address] [place] [id number] PCP - General Internal Medicine 07/16/12 documented as of this encounter
== END 2025-05-12 09:40 | disposition home or self-care (01) ==
LOC: HO.HOS 08:52
PROVIDERS: Visit Provider Physician Assistant
DX: Z87.81 Personal history of (healed) traumatic fracture (principal); Z98.890 Other specified postprocedural states
CPT/HCPCS: 99213

== ENCOUNTER → 2025-05-12 08:52 | Outpatient (BNV) | payer MEDICAID, SELFPAY | PROVIDERS: Visit Provider Radiology Diagnostic Radiology | DX: M25.572 Pain in left ankle and joints of left foot (principal) | CPT/HCPCS: 73610 ==